=== PATIENT | male | born 1985 | race African-American/Black ===

== ENCOUNTER 2017-10-14 05:25 | Emergency (ER) | payer BC ==
--- NOTE | 2017-10-14 05:30 | PDOC ---
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 Allergies: NKDA <Alicia Casas - Last Filed: 10/14/17 05:48> - General History Source: Patient <Helio Carrasco - Last Filed: 10/14/17 19:43> - General Stated Complaint: COUGH,CHEST PAIN Time Seen by Provider: 10/14/17 05:30 Past History <Alicia Casas - Last Filed: 10/14/17 05:48> <Helio Carrasco - Last Filed: 10/14/17 19:43> - Past Medical History Allergies/Adverse Reactions: Allergies Allergy/AdvReac Type Severity Reaction Status Date / Time No Known Allergies Allergy Verified 10/14/17 05:53 Home Medications: Ambulatory Orders Acetaminophen W/ Codeine #3 [Tylenol # 3] 1 tab PO Q6H #30 tablet MDD 4 Azithromycin [Zithromax -] 250 mg PO UTDICT #6 tab 10/14/17 Meclizine HCl 25 mg PO TID #30 tablet 10/14/17 Review of Systems - Review of Systems Able to Perform ROS?: Yes Comments:: 10/14/17 05:50 CONSTITUTIONAL: Absent: fever, chills, diaphoresis, generalized weakness, malaise, loss of appetite HEENT: Absent: rhinorrhea, nasal congestion, throat pain, throat swelling, difficulty swallowing, mouth swelling, ear pain, eye pain, visual Changes CARDIOVASCULAR: Absent: chest pain, syncope, palpitations, irregular heart rate, lightheadedness , peripheral edema RESPIRATORY: (+) cough x 1 week, Absent: shortness of breath, dyspnea with exertion, orthopnea, wheezing, stridor, hemoptysis GASTROINTESTINAL: Absent: abdominal pain, abdominal distension, nausea, vomiting, diarrhea, constipation, melena, hematochezia GENITOURINARY: Absent: dysuria, frequency, urgency, hesitancy, hematuria, flank pain, genital pain MUSCULOSKELETAL: Absent: myalgia, arthralgia, joint swelling SKIN: Absent: rash, itching, pallor HEMATOLOGIC/IMMUNOLOGIC: Absent: easy bleeding, easy bruising, lymphadenopathy, frequent infections ENDOCRINE: Absent: unexplained weight gain, unexplained weight loss, heat intolerance, cold intolerance NEUROLOGIC: Absent: headache, focal weakness or paresthesias, dizziness, unsteady gait, seizure, mental status changes, bladder or bowel incontinence PSYCHIATRIC: Absent: anxiety, depression, suicidal or homicidal ideation, hallucinations. <Alicia Casas - Last Filed: 10/14/17 05:48> *Physical Exam - Physical Exam Comments: 10/14/17 05:50 GENERAL: Well developed, well nourished. Awake and alert. No acute distress. HEENT: (+) erythema to posterior oropharynx. Normocephalic, atraumatic. PERRLA, EOMI. No conjunctival pallor. Sclera are non-icteric. Moist mucous membranes. NECK: Supple. Full ROM. No JVD. Carotid pulses 2+ and symmetric, without bruits. No thyromegaly. No lymphadenopathy. CARDIOVASCULAR: Regular rate and rhythm. No murmurs, rubs, or gallops. Distal pulses are 2+ and symmetric. PULMONARY: (+) persistent cough, decreased breath sounds bilaterally, No evidence of respiratory distress. No wheezing, rales or rhonchi. ABDOMINAL: Soft. Non-tender. Non-distended. No rebound or guarding. No organomegaly. Normoactive bowel sounds. MUSCULOSKELETAL Normal range of motion at all joints. No bony deformities or tenderness. No CVA tenderness. EXTREMITIES: No cyanosis. No clubbing. No edema. No calf tenderness. SKIN: Warm and dry. Normal capillary refill. No rashes. No jaundice. NEUROLOGICAL: Alert, awake, appropriate. Cranial nerves 2-12 intact. Normoreflexic in the upper and lower extremities. Normal speech. Toes are down-going bilaterally. Gait is normal without ataxia. PSYCHIATRIC: Cooperative. Good eye contact. Appropriate mood and affect. <Alicia Casas - Last Filed: 10/14/17 05:48> Medical Decision Making - Medical Decision Making 10/14/17 19:[address] Carrasco: The scribe's documentation has been prepared under my direction and personally reviewed by me in its entirery. I confirm that the note above accurately reflects all work, treatment, procedures, and medical decision making performed by me. <Helio Carrasco - Last Filed: 10/14/17 19:43> *DC/Admit/Observation/Transfer - Attestations Scribe Attestion: 10/14/17 05:51 Documentation prepared by Alicia Casas, acting as medical practitioners for Helio Carrasco DO <Alicia Casas - Last Filed: 10/14/17 05:48> - Discharge Dispostion Admit: No <Helio Carrasco - Last Filed: 10/14/17 19:43> Diagnosis at time of Disposition: Bronchitis, Cough - Discharge Dispostion Disposition: HOME Condition at time of disposition: Stable - Prescriptions Prescriptions: Acetaminophen W/ Codeine #3 [Tylenol # 3] 1 tab PO Q6H #30 tablet MDD 4 Azithromycin [Zithromax -] 250 mg PO UTDICT #6 tab Meclizine HCl 25 mg PO TID #30 tablet - Patient Instructions Printed Discharge Instructions: DI for Cough -- Adult, DI for Acute Bronchitis
[2017-10-14] MEDS ORDERED: AZITHROMYCIN 250 MG TABLET PO STA (05:49)
[2017-10-14] MEDS ORDERED: AZITHROMYCIN 500 MG TABLET ONE (06:06)
== END 2017-10-14 06:53 | disposition home or self-care (01) ==
LOC: JER 05:25
DX: J40 Bronchitis, not specified as acute or chronic (principal)
CPT/HCPCS: 71046-TC; 87804; 99281-25

== ENCOUNTER 2020-01-25 16:29 | Inpatient (IN) | payer OTHER ==
[2020-01-25] MEDS ORDERED: methylPREDNISolone NA SUCC 125 MG/2 ML VIAL IVPUSH ONE (16:46)
--- NOTE | 2020-01-25 17:01 | PDOC ---
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 Pt now with SOB x 2-3 days.unable to sleep. Increasing SOB; O2sat is low on RA - Physicial Exam PE: 01/25/20 17:04 AGree iw resident exam Lungs clear bilat. Heart RRR Abd soft NT ND + BS - Medical Decision Making 01/25/20 17:04 Pt will be admitted to the ICU Discharge - Discharge Information Problems reviewed: Yes Clinical Impression/Diagnosis: COVID-19 Condition: Critical - Admission Yes - Follow up/Referral - Patient Discharge Instructions - Post Discharge Activity
--- NOTE | 2020-01-25 17:02 | PDOC ---
History of Present Illness - General Chief Complaint: Shortness of Breath Stated Complaint: SHORTNESS OF BREATH Time Seen by Provider: 01/25/20 16:45 - History of Present Illness Initial Comments: 01/25/20 17:02 34yo male with recent COVID positive test presents to the ED with shortness of breath and extreme fatigue. Recently on azithromycin course without relief. Saturating at 98% on room air, placed on 2L nasal cannula upon arrival with symptomatic relief. Patient has been progressively short of breath since diagnosis. 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 Past History - Past Medical History Allergies/Adverse Reactions: Allergies Allergy/AdvReac Type Severity Reaction Status Date / Time No Known Allergies Allergy Verified 01/25/20 16:40 Home Medications: Ambulatory Orders Acetaminophen W/ Codeine #3 [Tylenol # 3] 1 tab PO Q6H #30 tablet MDD 4 10/14/17 Azithromycin [Zithromax -] 250 mg PO UTDICT #6 tab 10/14/17 Meclizine HCl 25 mg PO TID #30 tablet 10/14/17 COPD: No Diabetes: Yes HTN: Yes - Immunization History Immunization Up to Date: Yes - Psycho Social/Smoking Cessation Hx Smoking History: Never smoked Have you smoked in the past 12 months: No Information on smoking cessation initiated: No Hx Alcohol Use: No Drug/Substance Use Hx: No Substance Use Type: None Review of Systems - Review of Systems Able to Perform ROS?: Yes Comments:: 01/25/20 17:11 GEN: + fever, fatigue, chills, malaise, body aches HEENT: No congestion, no sore throat, no ear pain, vision change, or eye pain CV: no palpitations, lightheadedness, syncope, or edema RESP: SOB, cough GI: no nausea, no diarrhea, constipation, or rectal bleed : no dysuria, hematuria, or discharge MSK: + muscle weakness, no joint swelling or pain NEURO: no headache, no vertigo, numbness, tingling, or focal weakness PSYCH: no SI, HI, or behavior change SKIN: no jaundice, rash, lesions, or unexplained bruises ROS otherwise negative except as noted in HPI Is the patient limited Upper Sorbian proficient: No Constitutional: Yes: See HPI HEENTM: No: Symptoms Reported Respiratory: Yes: See HPI Cardiac (ROS): No: Symptoms Reported ABD/GI: No: Symptoms Reported : No: Symptoms Reported Musculoskeletal: No: Symptoms Reported Integumentary: No: Symptoms Reported Neurological: No: Symptoms reported All Other Systems: Reviewed and Negative *Physical Exam - Vital Signs Last Vital Signs Temp Pulse Resp BP Pulse Ox 99 F 92 H 24 H 158/90 100 01/25/20 16:41 01/25/20 16:43 01/25/20 16:41 01/25/20 16:41 01/25/20 16:43 - Physical Exam 01/25/20 17:16 GENERAL: ill-appearing, A/Ox4, mild distress, answers questions appropriately, appears dehydrated, wearingnasal cannula, face mask HEENT: PERRLA, EOMI, dry mucous membranes NECK/BACK: no midline ttp, no spinal stepoff or deformity, no hematoma, full ROM, neck supple CARDIOVASCULAR: Tachycardic rhythm, no MGR, strong peripheral pulses, capillary refill 4 seconds, no edema LUNGS/RESPIRATORY: tachypneic, increased WOB, cough noted, mildly coarse breath sounds bilaterally without focal area of decreased breath sounds GI/ABDOMEN: symmetric [id number], normoactive BS, soft, no ttp, no midline pul satile masses : no CVA tenderness MSK/EXTREMITIES: no muscle atrophy, no acute deformity SKIN: warm and dry, no pallor, no jaundice, no rash, no pathologic-appearing bruising, no skin breakdown, no cuts, no lesions NEUROLOGICAL: GCS 15, CN II-XII grossly intact, 5/5 strength proximally and dis tally, no facial droop ED Treatment Course - LABORATORY CBC & Chemistry Diagram: 01/25/20 16:29 01/25/20 16:29 - Medications Given in the ED: ED Medications Discontinued Medications Generic Name Dose Route Start Last Admin Trade Name Freq PRN Reason Stop Dose Admin Methylprednisolone Sodium Succinate 125 mg 01/25/20 16:46 01/25/20 16:49 Solu-Medrol - IVPUSH 01/25/20 16:47 125 mg ONCE ONE Administration Medical Decision Making - Medical Decision Making 01/25/20 17:27 Patient presents with fever, SOB, fatigue COVID-19+ in the setting of COVID-19 pandemic. DDX IBNLT: COVID-19 with c/f sequelae (ARDS, myocarditis). Superimposed bacterial PNA considered as well. Restrictive lung disease from body habitus possible contributing factor. Less likely influenza, bronchitis, other viral URI, laryngitis, tracheitis, etc. W/U ordered: Labs as noted below, COVID-19 swab, EKG, CXR TX ordered: Solumedrol 125 given. BiPAP started. No acute pulmonary disease seen on xray. Patient admitted to ICU immediately under the care of Dr. Cavazos. Discharge - Discharge Information Problems reviewed: Yes Clinical Impression/Diagnosis: COVID-19 Condition: Stable - Admission Yes - Follow up/Referral - Patient Discharge Instructions - Post Discharge Activity
[2020-01-25 17:19] LABS: BASO % 0.7 % (0-2.0); HEMATOCRIT 44.1 % (35.4-49); HEMOGLOBIN 13.9 GM/dL (11.7-16.9); LYMPH % 44.4 % (8-40); MCH 23.4 pg (25.7-33.7); MCHC 31.4 g/dl (32.0-35.9); MEAN CELL VOLUME 74.6 fl (80-96); MEAN PLT VOLUME 9.1 fl (7.5-11.1); MONO % 15.9 % (3.8-10.2); PLATELET COUNT 277 K/MM3 (134-434); RBC 5.91 M/mm3 (4.00-5.60); RDW 16.4 % (11.9-15.9); WHITE BLOOD COUNT 7.7 K/mm3 (4.0-10.0)
[2020-01-25 17:28] LABS: PROTHROMBIN TIME (PATIENT) 11.8 SEC (9.7-13.0)
[2020-01-25 17:30] LABS: ACTIVATED PTT 32.6 SECONDS (25.2-36.5)
[2020-01-25 17:35] LABS: VENOUS PC02 54.9 mmHg (38-52); VENOUS PH 7.36 (7.31-7.41); VENOUS PO2 < 49 mmHg (28-48)
[2020-01-25 17:36] LABS: VENOUS BASE EXCESS 4.3 mmol/L (-2-2)
--- NOTE | 2020-01-25 18:13 | CONSULT ---
Consultation: REQUESTING PROVIDER: ED CONSULT REQUEST: We have been asked to medically evaluate this patient for dyspnea HISTORY OF PRESENT ILLNESS: Pt is a 34 y/o male with HTN (not on meds) who presents with 3-4 days of increasing dyspnea and diarrhea. Two days ago he began having chest pain with coughing. 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 Tmax 103 this week. He has taken Tylenol with relief. No tobacco or alcohol use. NKDA REVIEW OF SYSTEMS: see HPI PHYSICAL EXAMINATION Vital Signs - 24 hr 01/25/20 01/25/20 01/25/20 16:41 16:43 16:55 Temperature 99 F Pulse Rate 80 92 H Pulse Rate [ 88 Apical] Respiratory 24 H 20 Rate Blood Pressure 158/90 Blood Pressure 136/84 [Left Arm] O2 Sat by Pulse 100 100 100 Oximetry (%) GENERAL: Awake, alert, and fully oriented, in no acute distress. HEAD: Normal with no signs of trauma. EYES: Pupils equal, round and reactive to light, extraocular movements intact, sclera anicteric, conjunctiva clear. No lid lag. EARS, NOSE, THROAT: Ears normal, nares patent, moist mucous membranes. NECK: Normal range of motion, supple without lymphadenopathy, JVD, or masses. LUNGS: No tachypnea. No accessory muscle use. MUSCULOSKELETAL: Normal range of motion at all joints. NEUROLOGICAL: Cranial nerves II-XII grossly intact. Normal speech. PSYCHIATRIC: Cooperative. Good eye contact. Appropriate mood and affect. SKIN: Warm, dry, normal turgor, no rashes or lesions noted. Laboratory Results - last 24 hr 01/25/20 01/25/20 01/25/20 16:29 16:29 16:29 WBC 7.7 RBC 5.91 H Hgb 13.9 Hct 44.1 MCV 74.6 L MCH 23.4 L MCHC 31.4 L RDW 16.4 H Plt Count 277 MPV 9.1 Absolute Neuts (auto) 2.7 Neutrophils % 35.0 L Lymphocytes % 44.4 H Monocytes % 15.9 H Eosinophils % 4.0 Basophils % 0.7 Nucleated RBC % 0 PT with INR 11.80 INR 1.00 PTT (Actin FS) 32.6 VBG pH 7.36 POC VBG pCO2 54.9 H POC VBG pO2 < 49 H VBG HCO3 30.6 H VBG O2 Sat (Cortes) 35.5 L VBG Base Excess 4.3 H Active Medications Generic Name Dose Route Start Last Admin Trade Name Kary PRN Reason Stop Dose Admin Chlorhexidine Gluconate 1 applic 01/25/20 22:00 Hibiclens For Decolonization - TP HS SARAH Heparin Sodium (Porcine) 7,500 unit 01/25/20 22:00 Heparin - SQ TID SARAH Mupirocin 1 applic 01/25/20 22:00 Bactroban Ointment (For Decolonization) - NS 01/30/20 21:59 BID SARAH ASSESSMENT/PLAN: Pt is a 34 y/o male with HTN (not on meds) who presents with 3-4 days of increasing dyspnea and diarrhea. Two days ago he began having chest pain with coughing. 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 neuro: -alert cardio: -monitor BP pulm: -consent signed for convalescent plasma -type and screen stat -CXR no infiltrate noted -NC -BiPAP at night as needed DVT Ppx heparin 7500 TID FEN PO fluids monitor labs regular diet dispo: ICU monitoring waiting for plasma FULL CODE Visit type - Emergency Visit Emergency Visit: Yes ED Registration Date: 01/25/20 Care time: The patient presented to the Emergency Department on the above date and was hospitalized for further evaluation of their emergent condition. - New Patient This patient is new to me today: Yes Date on this admission: 01/26/20 - Critical Care Critical Care patient: Yes Total Critical Care Time (in minutes): 38 Critical Care Statement: The care of this patient involved high complexity decision making to prevent further life threatening deterioration of the p atient's condition and/or to evaluate & treat vital organ system(s) failure or risk of failure. ATTENDING PHYSICIAN STATEMENT I saw and evaluated the patient. I reviewed the resident's note and discussed the case with the resident. I agree with the resident's findings and plan as documented. SUBJECTIVE: OBJECTIVE: ASSESSMENT AND PLAN:
[2020-01-25 18:42] LABS: BLOOD UREA NITROGEN 6.3 mg/dL (7-18); CREATININE 1.1 mg/dL (0.55-1.3); POTASSIUM 3.4 mmol/L (3.5-5.1)
[2020-01-25 18:43] LABS: ALBUMIN 3.3 g/dl (3.4-5.0); BILIRUBIN,DIRECT 0.1 mg/dL (0.0-0.2); BILIRUBIN,TOTAL 0.4 mg/dL (0.2-1); CALCIUM 8.4 mg/dL (8.5-10.1); TOT PROT 7.4 g/dl (6.4-8.2)
[2020-01-25] MEDS: MUPIROCIN 2% TOPICAL OINTMENT FOR DECOLONIZATION NS SCH (22:35)
[2020-01-25] MEDS: CHLORHEXIDINE GLUCONATE 4% CLEANSER FOR DECOLONIZATION TP SCH (22:36)
[2020-01-25] MEDS: HEPARIN NA (PORCINE) 5,000 UNITS/ML 1ML VIAL SQ SCH (22:36)
--- NOTE | 2020-01-25 22:48 | PN ---
Teaching Attending Note Name of Resident: Bre Ramey ATTENDING PHYSICIAN STATEMENT I saw and evaluated the patient. I reviewed the resident's note and discussed the case with the resident. I agree with the resident's findings and plan as documented. SUBJECTIVE: 34 M, HTN and likely OSAS. 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 Tested (+) 2 days ago. Progressive SOB., fever 103, and GI symptoms. Apparently was hypoxic to the 80's and was told he needed intubation. AMA. Presented due to worsening SOB and pleuritic type CP. CXR: possible increased central markings. PHYSICAL EXAMINATION Vital Signs - 24 hr 01/25/20 01/25/20 01/25/20 16:41 16:43 16:55 Temperature 99 F Pulse Rate 80 92 H Pulse Rate [ 88 Apical] Respiratory 24 H 20 Rate Blood Pressure 158/90 Blood Pressure 136/84 [Left Arm] O2 Sat by Pulse 100 100 100 Oximetry (%) GENERAL: Awake, alert, and fully oriented, in no acute distress. HEAD: Normal with no signs of trauma. EYES: Pupils equal, round and reactive to light, extraocular movements intact, sclera anicteric, conjunctiva clear. No lid lag. EARS, NOSE, THROAT: Ears normal, nares patent, moist mucous membranes. NECK: Normal range of motion, supple without lymphadenopathy, JVD, or masses. LUNGS: No tachypnea. No accessory muscle use. MUSCULOSKELETAL: Normal range of motion at all joints. NEUROLOGICAL: Non-focal PSYCHIATRIC: Cooperative. Good eye contact. Appropriate mood and affect. SKIN: Warm, dry, normal turgor, no rashes or lesions noted. Laboratory Results - last 24 hr 01/25/20 01/25/20 01/25/20 16:29 16:29 16:29 WBC 7.7 RBC 5.91 H Hgb 13.9 Hct 44.1 MCV 74.6 L MCH 23.4 L MCHC 31.4 L RDW 16.4 H Plt Count 277 MPV 9.1 Absolute Neuts (auto) 2.7 Neutrophils % 35.0 L Lymphocytes % 44.4 H Monocytes % 15.9 H Eosinophils % 4.0 Basophils % 0.7 Nucleated RBC % 0 PT with INR 11.80 INR 1.00 PTT (Actin FS) 32.6 VBG pH 7.36 POC VBG pCO2 54.9 H POC VBG pO2 < 49 H VBG HCO3 30.6 H VBG O2 Sat (Cortes) 35.5 L VBG Base Excess 4.3 H Active Medications Generic Name Dose Route Start Last Admin Trade Name Freq PRN Reason Stop Dose Admin Chlorhexidine Gluconate 1 applic 01/25/20 22:00 Hibiclens For Decolonization - TP HS SARAH Heparin Sodium (Porcine) 7,500 unit 01/25/20 22:00 Heparin - SQ TID SARAH Mupirocin 1 applic 01/25/20 22:00 Bactroban Ointment (For Decolonization) - NS 01/30/20 21:59 BID [facility] ASSESSMENT/PLAN: Acute Respiratory Distress due to COVID19 Pneumonitis HTN Likely OSAS Supplemental O2 as needed NIPPV / AVAPS at bedside VTE prophylaxis IV Steroids Will order Convalescent Plasma Monitor off ABX for now Dr Cavazos
[2020-01-25 23:33] LABS: URINE APPEARANCE CLEAR; URINE BILIRUBIN NEGATIVE (NEGATIVE); URINE COLOR YELLOW; URINE GLUCOSE (UA) 3+ (NEGATIVE); URINE KETONE NEGATIVE (NEGATIVE); URINE LEUK ESTERASE NEGATIVE (NEGATIVE); URINE NITRITE NEGATIVE (NEGATIVE); URINE PROTEIN NEGATIVE (NEGATIVE)
[2020-01-26] MEDS ORDERED: INSULIN REGULAR HUMAN 100 UNITS/ML *VIAL IVPUSH ONE (00:31)
[2020-01-26] MEDS: HEPARIN NA (PORCINE) 5,000 UNITS/ML 1ML VIAL SQ SCH ×3 (06:30→23:14)
[2020-01-26 07:15] LABS: BASO % 0.1 % (0-2.0); HEMOGLOBIN 12.2 GM/dL (11.7-16.9); LYMPH % 21.9 % (8-40); MCH 23.3 pg (25.7-33.7); MCHC 31.3 g/dl (32.0-35.9); MEAN CELL VOLUME 74.5 fl (80-96); MEAN PLT VOLUME 9.1 fl (7.5-11.1); MONO % 7.6 % (3.8-10.2); NEUT % 70.4 % (42.8-82.8); PLATELET COUNT 270 K/MM3 (134-434); RBC 5.24 M/mm3 (4.00-5.60); RDW 16.3 % (11.9-15.9); WHITE BLOOD COUNT 4.9 K/mm3 (4.0-10.0)
[2020-01-26 07:28] LABS: ALBUMIN 2.9 g/dl (3.4-5.0); BILIRUBIN,TOTAL 0.3 mg/dL (0.2-1); BLOOD UREA NITROGEN 10.2 mg/dL (7-18); CALCIUM 8.7 mg/dL (8.5-10.1); MAGNESIUM 2.3 mg/dL (1.8-2.4); PHOSPHOROUS 3.6 mg/dL (2.5-4.9); POTASSIUM 3.8 mmol/L (3.5-5.1); TOT PROT 6.8 g/dl (6.4-8.2)
[2020-01-26] MEDS ORDERED: methylPREDNISolone NA SUCC 125 MG/2 ML VIAL IVPUSH SCH (08:45)
[2020-01-26] MEDS: MUPIROCIN 2% TOPICAL OINTMENT FOR DECOLONIZATION NS SCH ×2 (10:05→23:14)
[2020-01-26] MEDS ORDERED: INSULIN SLIDING SCALE (NOVOLOG) 1 VIAL SQ SCH (11:00)
--- NOTE | 2020-01-26 11:28 | PN ---
Physical Exam: SUBJECTIVE: Pt reports weakness but improvement in cough and GI symptoms. He reports loss of taste and smell this morning. OBJECTIVE: Vital Signs Period Temp Pulse Resp BP Sys/Miner Pulse Ox Last 24 Hr 97.7 F-99 F 80-99 15-24 122-158/77-109 95-100 GENERAL: The patient is awake, alert, and fully oriented, in no acute distress. 2L NC HEAD: Normal with no signs of trauma. EYES: PERRL, extraocular movements intact, conjunctiva clear. ENT: Ears normal, nares patent, moist mucous membranes. NECK: Trachea midline, full range of motion NEUROLOGICAL: Cranial nerves II through XII grossly intact. PSYCH: Normal mood, normal affect. SKIN: Warm, dry, no rashes or lesions noted Laboratory Results - last 24 hr 01/25/20 01/25/20 01/25/20 16:29 16:29 16:29 WBC 7.7 RBC 5.91 H Hgb 13.9 Hct 44.1 MCV 74.6 L MCH 23.4 L MCHC 31.4 L RDW 16.4 H Plt Count 277 MPV 9.1 Absolute Neuts (auto) 2.7 Neutrophils % 35.0 L Lymphocytes % 44.4 H Monocytes % 15.9 H Eosinophils % 4.0 Basophils % 0.7 Nucleated RBC % 0 PT with INR 11.80 INR 1.00 PTT (Actin FS) 32.6 D-Dimer VBG pH POC VBG pCO2 POC VBG pO2 VBG HCO3 VBG O2 Sat ([place]) VBG Base Excess Sodium 141 Potassium 3.4 L Chloride 104 Carbon Dioxide 28 Anion Gap 12 BUN 6.3 L Creatinine 1.1 Est GFR (CKD-EPI)AfAm 100.27 Est GFR (CKD-EPI)NonAf 86.51 POC Glucometer Random Glucose 192 H Hemoglobin A1c % Lactic Acid Calcium 8.4 L Phosphorus Magnesium Ferritin 377 Total Bilirubin 0.4 Direct Bilirubin 0.1 AST 41 H ALT 59 Alkaline Phosphatase 90 LD Total 326 H Creatine Kinase 485 H Creatine Kinase Index 0.6 CK-MB (CK-2) 3.24 Troponin I 0.02 C-Reactive Protein 11.8 H Total Protein 7.4 Albumin 3.3 L Urine Color Urine Appearance Urine pH Ur Specific [place] Urine Protein Urine Glucose (UA) Urine Ketones Urine Blood Urine Nitrite Urine Bilirubin Urine Urobilinogen Ur Leukocyte Esterase Blood Type Antibody Screen 01/25/20 01/25/20 01/25/20 16:29 16:29 16:29 WBC RBC Hgb Hct MCV MCH MCHC RDW Plt Count MPV Absolute Neuts (auto) Neutrophils % Lymphocytes % Monocytes % Eosinophils % Basophils % Nucleated RBC % PT with INR INR PTT (Actin FS) D-Dimer 1322 H VBG pH 7.36 POC VBG pCO2 54.9 H POC VBG pO2 < 49 H VBG HCO3 30.6 H VBG O2 Sat ([place]) 35.5 L VBG Base Excess 4.3 H Sodium Potassium Chloride Carbon Dioxide Anion Gap BUN Creatinine Est GFR (CKD-EPI)AfAm Est GFR (CKD-EPI)NonAf POC Glucometer Random Glucose Hemoglobin A1c % Lactic Acid 1.2 Calcium Phosphorus Magnesium Ferritin Total Bilirubin Direct Bilirubin AST ALT Alkaline Phosphatase LD Total Creatine Kinase Creatine Kinase Index CK-MB (CK-2) Troponin I C-Reactive Protein Total Protein Albumin Urine Color Urine Appearance Urine pH Ur Specific [place] Urine Protein Urine Glucose (UA) Urine Ketones Urine Blood Urine Nitrite Urine Bilirubin Urine Urobilinogen Ur Leukocyte Esterase Blood Type Antibody Screen 01/25/20 01/25/20 01/25/20 17:30 18:20 18:30 WBC RBC Hgb Hct MCV MCH MCHC RDW Plt Count MPV Absolute Neuts (auto) Neutrophils % Lymphocytes % Monocytes % Eosinophils % Basophils % Nucleated RBC % PT with INR INR PTT (Actin FS) D-Dimer VBG pH POC VBG pCO2 POC VBG pO2 VBG HCO3 VBG O2 Sat ([place]) VBG Base Excess Sodium Potassium Chloride Carbon Dioxide Anion Gap BUN Creatinine Est GFR (CKD-EPI)AfAm Est GFR (CKD-EPI)NonAf POC Glucometer Random Glucose Hemoglobin A1c % Lactic Acid Calcium Phosphorus Magnesium Ferritin Total Bilirubin Direct Bilirubin AST ALT Alkaline Phosphatase LD Total Creatine Kinase Creatine Kinase Index CK-MB (CK-2) Troponin I C-Reactive Protein Total Protein Albumin Urine Color Urine Appearance Urine pH Ur Specific [place] Urine Protein Urine Glucose (UA) Urine Ketones Urine Blood Urine Nitrite Urine Bilirubin Urine Urobilinogen Ur Leukocyte Esterase Blood Type O NEGATIVE O NEGATIVE Cancelled Antibody Screen Negative Cancelled 01/25/20 01/25/20 01/26/20 22:00 23:40 06:02 WBC 4.9 RBC 5.24 Hgb 12.2 Hct 39.0 MCV 74.5 L MCH 23.3 L MCHC 31.3 L RDW 16.3 H Plt Count 270 MPV 9.1 Absolute Neuts (auto) 3.5 Neutrophils % 70.4 D Lymphocytes % 21.9 D Monocytes % 7.6 Eosinophils % 0.0 D Basophils % 0.1 Nucleated RBC % 0 PT with INR INR PTT (Actin FS) D-Dimer VBG pH POC VBG pCO2 POC VBG pO2 VBG HCO3 VBG O2 Sat ([place]) VBG Base Excess Sodium Potassium Chloride Carbon Dioxide Anion Gap BUN Creatinine Est GFR (CKD-EPI)AfAm Est GFR (CKD-EPI)NonAf POC Glucometer 332 Random Glucose Hemoglobin A1c % Lactic Acid Calcium Phosphorus Magnesium Ferritin Total Bilirubin Direct Bilirubin AST ALT Alkaline Phosphatase LD Total Creatine Kinase Creatine Kinase Index CK-MB (CK-2) Troponin I C-Reactive Protein Total Protein Albumin Urine Color Yellow Urine Appearance Clear Urine pH 6.0 Ur Specific [place] 1.026 Urine Protein Negative Urine Glucose (UA) 3+ H Urine Ketones Negative Urine Blood Negative Urine Nitrite Negative Urine Bilirubin Negative Urine Urobilinogen 1.0 Ur Leukocyte Esterase Negative Blood Type Antibody Screen 01/26/20 01/26/20 01/26/20 06:02 06:02 06:18 WBC RBC Hgb Hct MCV MCH MCHC RDW Plt Count MPV Absolute Neuts (auto) Neutrophils % Lymphocytes % Monocytes % Eosinophils % Basophils % Nucleated RBC % PT with INR INR PTT (Actin FS) D-Dimer VBG pH POC VBG pCO2 POC VBG pO2 VBG HCO3 VBG O2 Sat ([place]) VBG Base Excess Sodium 139 Potassium 3.8 Chloride 103 Carbon Dioxide 28 Anion Gap 7 L BUN 10.2 Creatinine 1.0 Est GFR (CKD-EPI)AfAm 112.51 Est GFR (CKD-EPI)NonAf 97.08 POC Glucometer 289 Random Glucose 330 H Hemoglobin A1c % Lactic Acid Calcium 8.7 Phosphorus 3.6 Magnesium 2.3 Ferritin 360.1 Total Bilirubin 0.3 Direct Bilirubin AST 30 ALT 57 Alkaline Phosphatase 103 LD Total 265 H Creatine Kinase Creatine Kinase Index CK-MB (CK-2) Troponin I C-Reactive Protein 7.1 H Total Protein 6.8 Albumin 2.9 L Urine Color Urine Appearance Urine pH Ur Specific [place] Urine Protein Urine Glucose (UA) Urine Ketones Urine Blood Urine Nitrite Urine Bilirubin Urine Urobilinogen Ur Leukocyte Esterase Blood Type Antibody Screen 01/26/20 06:40 WBC RBC Hgb Hct MCV MCH MCHC RDW Plt Count MPV Absolute Neuts (auto) Neutrophils % Lymphocytes % Monocytes % Eosinophils % Basophils % Nucleated RBC % PT with INR INR PTT (Actin FS) D-Dimer VBG pH POC VBG pCO2 POC VBG pO2 VBG HCO3 VBG O2 Sat ([place]) VBG Base Excess Sodium Potassium Chloride Carbon Dioxide Anion Gap BUN Creatinine Est GFR (CKD-EPI)AfAm Est GFR (CKD-EPI)NonAf POC Glucometer Random Glucose Hemoglobin A1c % 10.5 H Lactic Acid Calcium Phosphorus Magnesium Ferritin Total Bilirubin Direct Bilirubin AST ALT Alkaline Phosphatase LD Total Creatine Kinase Creatine Kinase Index CK-MB (CK-2) Troponin I C-Reactive Protein Total Protein Albumin Urine Color Urine Appearance Urine pH Ur Specific [place] Urine Protein Urine Glucose (UA) Urine Ketones Urine Blood Urine Nitrite Urine Bilirubin Urine Urobilinogen Ur Leukocyte Esterase Blood Type Antibody Screen Active Medications Generic Name Dose Route Start Last Admin Trade Name Freq PRN Reason Stop Dose Admin Chlorhexidine Gluconate 1 applic 01/25/20 22:00 01/25/20 22:36 Hibiclens For Decolonization - TP 1 applic HS SARAH Administration Heparin Sodium (Porcine) 7,500 unit 01/25/20 22:00 01/26/20 06:30 Heparin - SQ 7,500 unit TID SARAH Administration Insulin Aspart 1 vial 01/26/20 11:00 Novolog Vial Sliding Scale - SQ ACHS [facility] Protocol Methylprednisolone Sodium Succinate 70 mg 01/27/20 10:00 Solu-Medrol - IVPUSH 02/01/20 09:59 DAILY SARAH Mupirocin 1 applic 01/25/20 22:00 01/26/20 10:05 Bactroban Ointment (For Decolonization) - NS 01/30/20 21:59 1 applic BID SARAH Administration ASSESSMENT/PLAN: Pt is a 34 y/o male with HTN (not on meds) who presents with 3-4 days of increasing dyspnea and diarrhea. Two days ago he began having chest pain with coughing. 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 neuro: -alert cardio: -monitor BP pulm: -convalescent plasma administered -CXR no infiltrate noted -NC -BiPAP at night as needed -pt requested incentive spirometer endo: -A1C 10.5, discussed with pt -SSI -BGMs ID: -solu-medrol 70mg day 1 DVT Ppx heparin 7500 TID FEN PO fluids monitor labs regular diet dispo: ICU monitoring FULL CODE Visit type - Emergency Visit Emergency Visit: Yes ED Registration Date: 01/25/20 Care time: The patient presented to the Emergency Department on the above date and was hospitalized for further evaluation of their emergent condition. - New Patient This patient is new to me today: No - Critical Care Critical Care patient: Yes Total Critical Care Time (in minutes): 35 Critical Care Statement: The care of this patient involved high complexity decision making to prevent further life threatening deterioration of the patient's condition and/or to evaluate & treat vital organ system(s) failure or risk of failure. ATTENDING PHYSICIAN STATEMENT I saw and evaluated the patient. I reviewed the resident's note and discussed the case with the resident. I agree with the resident's findings and plan as documented. SUBJECTIVE: OBJECTIVE: ASSESSMENT AND PLAN:
[2020-01-26] MEDS: INSULIN SLIDING SCALE (NOVOLOG) 1 VIAL SQ SCH ×3 (11:35→23:13)
--- NOTE | 2020-01-26 12:38 | PN ---
Teaching Attending Note Name of Resident: Bre Ramey ATTENDING PHYSICIAN STATEMENT I saw and evaluated the patient. I reviewed the resident's note and discussed the case with the resident. I agree with the resident's findings and plan as documented. SUBJECTIVE: Pt seen and examined in the ICU. States breathing is improving. Received co nvalescent plasma this AM. No fevers. Saturating well on nasal cannula. OBJECTIVE: Vital Signs Period Temp Pulse Resp BP Sys/Miner Pulse Ox Last 24 Hr 97.7 F-99 F 77-99 15-24 122-158/77-109 95-100 Intake & Output 01/23/20 01/24/20 01/25/20 01/26/20 23:59 23:59 23:59 23:59 Output Total 400 Balance -400 Weight 140.614 kg Gen: NAD at rest Heart: RRR Lung: decreased breath sounds at the bases Abd: soft, nontender Ext: no edema CBC, BMP 01/26/20 06:02 01/26/20 06:02 Hepatic Panel Total Bilirubin 0.3 mg/dL (0.2-1) 01/26/20 06:02 Direct Bilirubin 0.1 mg/dL (0.0-0.2) 01/25/20 16:29 AST 30 U/L (15-37) 01/26/20 06:02 ALT 57 U/L (13-61) 01/26/20 06:02 Alkaline Phosphatase 103 U/L (45-117) 01/26/20 06:02 Albumin 2.9 g/dl (3.4-5.0) L 01/26/20 06:02 Laboratory Tests 01/26/20 01/26/20 06:02 06:02 Ferritin 360.1 LD Total 265 H C-Reactive Protein 7.1 H Active Medications Chlorhexidine Gluconate (Hibiclens For Decolonization -) 1 applic TP HS SARAH Last Admin: 01/25/20 22:36 Dose: 1 applic Documented by: Heparin Sodium (Porcine) (Heparin -) 7,500 unit SQ TID SARAH Last Admin: 01/26/20 06:30 Dose: 7,500 unit Documented by: Insulin Aspart (Novolog Vial Sliding Scale -) 1 vial SQ ACHS [facility]; Protocol Last Admin: 01/26/20 11:35 Dose: 6 units Documented by: Methylprednisolone Sodium Succinate (Solu-Medrol -) 70 mg IVPUSH DAILY [facility] Stop: 02/01/20 09:59 Mupirocin (Bactroban Ointment (For Decolonization) -) 1 applic NS BID [facility] Stop: 01/30/20 21:59 Last Admin: 01/26/20 10:05 Dose: 1 applic Documented by: ASSESSMENT AND PLAN: COVID Pneumonia Hypoxia HTN DM - received convalescent plasma - empiric medrol x 5 days - trend ferritin, LDH, CRP - O2 to keep SpO2 >90% - DVT prophylaxis
[2020-01-26] MEDS: ACETAMINOPHEN 325 MG TABLET (FP) PO PRN (23:13)
[2020-01-26] MEDS: CHLORHEXIDINE GLUCONATE 4% CLEANSER FOR DECOLONIZATION TP SCH (23:14)
[2020-01-27] MEDS ORDERED: ACETAMINOPHEN 1000 MG/100 ML VIAL (NON FORMULARY) IVPB ONE (02:35)
[2020-01-27] MEDS: HEPARIN NA (PORCINE) 5,000 UNITS/ML 1ML VIAL SQ SCH ×2 (07:10→14:29)
[2020-01-27] MEDS: INSULIN SLIDING SCALE (NOVOLOG) 1 VIAL SQ SCH ×3 (07:10→18:27)
[2020-01-27 07:14] LABS: BASO % 0.6 % (0-2.0); HEMATOCRIT 39.2 % (35.4-49); HEMOGLOBIN 12.4 GM/dL (11.7-16.9); MCH 23.4 pg (25.7-33.7); MCHC 31.6 g/dl (32.0-35.9); MEAN CELL VOLUME 74.2 fl (80-96); MEAN PLT VOLUME 9.1 fl (7.5-11.1); MONO % 6.2 % (3.8-10.2); NEUT % 59.2 % (42.8-82.8); PLATELET COUNT 291 K/MM3 (134-434); RBC 5.28 M/mm3 (4.00-5.60); RDW 16.1 % (11.9-15.9); WHITE BLOOD COUNT 10.9 K/mm3 (4.0-10.0)
[2020-01-27 07:30] LABS: BILIRUBIN,TOTAL 0.4 mg/dL (0.2-1); BLOOD UREA NITROGEN 13.7 mg/dL (7-18); CALCIUM 8.4 mg/dL (8.5-10.1); CREATININE 1.1 mg/dL (0.55-1.3); MAGNESIUM 1.9 mg/dL (1.8-2.4); PHOSPHOROUS 4.1 mg/dL (2.5-4.9); POTASSIUM 3.8 mmol/L (3.5-5.1); TOT PROT 6.9 g/dl (6.4-8.2)
--- NOTE | 2020-01-27 08:23 | PN ---
Physical Exam: SUBJECTIVE: c/o chest tightness overnight, EKG no changes, trop negative OBJECTIVE: Vital Signs Period Temp Pulse Resp BP Sys/Miner Pulse Ox Last 24 Hr 98 F-99.8 F 77-106 18-25 126-160/69-109 95-100 exam per financial foundations representative Laboratory Results - last 24 hr 01/26/20 01/26/20 01/26/20 06:40 11:32 18:08 WBC RBC Hgb Hct MCV MCH MCHC RDW Plt Count MPV Absolute Neuts (auto) Neutrophils % Lymphocytes % Monocytes % Eosinophils % Basophils % Nucleated RBC % Sodium Potassium Chloride Carbon Dioxide Anion Gap BUN Creatinine Est GFR (CKD-EPI)AfAm Est GFR (CKD-EPI)NonAf POC Glucometer 292 329 Random Glucose Hemoglobin A1c % 10.5 H Calcium Phosphorus Magnesium Ferritin Total Bilirubin AST ALT Alkaline Phosphatase LD Total Creatine Kinase Troponin I C-Reactive Protein Total Protein Albumin 01/26/20 01/27/20 01/27/20 22:10 05:50 05:50 WBC 10.9 H RBC 5.28 Hgb 12.4 Hct 39.2 MCV 74.2 L MCH 23.4 L MCHC 31.6 L RDW 16.1 H Plt Count 291 MPV 9.1 Absolute Neuts (auto) 6.4 Neutrophils % 59.2 Lymphocytes % 34.0 D Monocytes % 6.2 Eosinophils % 0.0 Basophils % 0.6 D Nucleated RBC % 0 Sodium 139 Potassium 3.8 Chloride 102 Carbon Dioxide 28 Anion Gap 10 BUN 13.7 Creatinine 1.1 Est GFR (CKD-EPI)AfAm 100.27 Est GFR (CKD-EPI)NonAf 86.51 POC Glucometer 217 Random Glucose 156 H Hemoglobin A1c % Calcium 8.4 L Phosphorus 4.1 Magnesium 1.9 Ferritin 311.9 Total Bilirubin 0.4 AST 25 ALT 52 Alkaline Phosphatase 96 LD Total 282 H Creatine Kinase Troponin I C-Reactive Protein 5.7 H Total Protein 6.9 Albumin 3.0 L 01/27/20 01/27/20 05:50 06:17 WBC RBC Hgb Hct MCV MCH MCHC RDW Plt Count MPV Absolute Neuts (auto) Neutrophils % Lymphocytes % Monocytes % Eosinophils % Basophils % Nucleated RBC % Sodium Potassium Chloride Carbon Dioxide Anion Gap BUN Creatinine Est GFR (CKD-EPI)AfAm Est GFR (CKD-EPI)NonAf POC Glucometer 180 Random Glucose Hemoglobin A1c % Calcium Phosphorus Magnesium Ferritin Total Bilirubin AST ALT Alkaline Phosphatase LD Total Creatine Kinase 215 Troponin I < 0.02 C-Reactive Protein Total Protein Albumin Active Medications Generic Name Dose Route Start Last Admin Trade Name Kary PRN Reason Stop Dose Admin Acetaminophen 650 mg 01/26/20 23:02 01/26/20 23:13 Tylenol - PO 650 mg Q6H PRN Administration FEVER Chlorhexidine Gluconate 1 applic 01/25/20 22:00 01/26/20 23:14 Hibiclens For Decolonization - TP 1 applic HS SARAH Administration Heparin Sodium (Porcine) 7,500 unit 01/25/20 22:00 01/27/20 07:10 Heparin - SQ 7,500 unit TID SARAH Administration Insulin Aspart 1 vial 01/26/20 11:00 01/27/20 07:10 Novolog Vial Sliding Scale - SQ 2 units ACHS SARAH Administration Protocol Methylprednisolone Sodium Succinate 70 mg 01/27/20 10:00 Solu-Medrol - IVPUSH 02/01/20 09:59 DAILY SARAH Mupirocin 1 applic 01/25/20 22:00 01/26/20 23:14 Bactroban Ointment (For Decolonization) - NS 01/30/20 21:59 1 applic BID SARAH Administration ASSESSMENT/PLAN: Pt is a 34 y/o male with HTN (not on meds) and newly diagnosed DM on admission, who presents with 3-4 days of increasing dyspnea and diarrhea. Two days ago he began having chest pain with coughing. 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 neuro: -somnolent this morning but improved following starting BiPAP cardio: -monitor BP pulm: -COVID -CXR possible infiltrate forming left lung, especially base -ABG this morning pCO2 50 -BiPAP -incentive spirometer -Legionella and step pneumo negative endo: -A1C 10.5 -SSI -BGMs -f/u outpatient ID: -solu-medrol 70mg day 3 -s/p convalescent plasma 01/25 -ID consulted DVT Ppx heparin 7500 TID FEN PO fluids monitor labs regular diet dispo: ICU monitoring FULL CODE Visit type - Emergency Visit Emergency Visit: Yes ED Registration Date: 01/25/20 Care time: The patient presented to the Emergency Department on the above date and was hospitalized for further evaluation of their emergent condition. - New Patient This patient is new to me today: No - Critical Care Critical Care patient: Yes Total Critical Care Time (in minutes): 35 Critical Care Statement: The care of this patient involved high complexity decision making to prevent further life threatening deterioration of the patient's condition and/or to evaluate & treat vital organ system(s) failure or risk of failure. ATTENDING PHYSICIAN STATEMENT I saw and evaluated the patient. I reviewed the resident's note and discussed the case with the resident. I agree with the resident's findings and plan as documented. SUBJECTIVE: OBJECTIVE: ASSESSMENT AND PLAN:
[2020-01-27] MEDS: SODIUM CHLORIDE 1,000 ML IV SCH (10:00)
[2020-01-27 10:22] LABS: ARTERIAL BLD GAS O2 SATURATION 93.3 % (95-98); ARTERIAL BLOOD GAS BASE EXCESS 6.3 mmol/L (-2-2); ARTERIAL BLOOD GAS PCO2 50.4 mmHg (35-45); ARTERIAL BLOOD GAS PO2 71.2 mmHg (80-100); ARTERIAL BLOOD GAS pH 7.41 (7.35-7.45)
--- NOTE | 2020-01-27 10:29 | PN ---
Progress Note (short form) - Note Progress Note: ID consult dictated fever recent diagnosis covid 19 positive was on zithromax prior to admission obesity- suspected osas HTN jypoxemic respiratory failure s/p convalescent plasma improving inflammatory markers send urinary antigens continue davissyn will follow over 35 minutes spent in the care of this ICU patient d/w logistics operations manager at length Problem List - Problems (1) Acute hypoxemic respiratory failure Code(s): J96.01 - ACUTE RESPIRATORY FAILURE WITH HYPOXIA (2) COVID-19 Code(s): U07.1 - COVID POSITIVE (3) HTN (hypertension) Code(s): I10 - ESSENTIAL (PRIMARY) HYPERTENSION (4) Obesity Code(s): E66.9 - OBESITY, UNSPECIFIED (5) REYNALDO (obstructive sleep apnea) Code(s): G47.33 - OBSTRUCTIVE SLEEP APNEA (ADULT) (PEDIATRIC)
[2020-01-27 10:38] LABS: ALLENS TEST POSITIVE
--- NOTE | 2020-01-27 10:51 | EKG ---
Test Reason : Blood Pressure : / mmHG Vent. Rate : 087 BPM Atrial Rate : 087 BPM P-R Int : 142 ms QRS Dur : 106 ms QT Int : 358 ms P-R-T Axes : 030 035 000 degrees QTc Int : 430 ms POOR DATA QUALITY, INTERPRETATION MAY BE ADVERSELY AFFECTED NORMAL SINUS RHYTHM INCOMPLETE RIGHT BUNDLE BRANCH BLOCK NO PREVIOUS ECGS AVAILABLE Confirmed by MARLENA BRIDGES MD ([id number]) on 01/27/2020 10:51:00 AM Referred By: Confirmed By:MARLENA BRIDGES MD
[2020-01-27] MEDS ORDERED: PIPERACILLIN/TAZOBACTAM 3.375 GM VIAL IVPB ONE ×3 (11:05→20:43)
[2020-01-27] MEDS ORDERED: DEXTROSE 5%-WATER - 50 ML IVPB ONE ×3 (11:06→20:43)
[2020-01-27] MEDS: PIPERACILLIN/TAZOB 3.375 GM 3.375 GM in DEXTROSE 5%-WATER - 50 ML IVPB SCH ×2 (11:21→16:30)
[2020-01-27] MEDS: MUPIROCIN 2% TOPICAL OINTMENT FOR DECOLONIZATION NS SCH (11:21)
[2020-01-27] MEDS: methylPREDNISolone NA SUCC 125 MG/2 ML VIAL IVPUSH SCH (11:22)
[2020-01-27 13:30] LABS: URINE APPEARANCE Clear; URINE BILIRUBIN Negative (NEGATIVE); URINE COLOR Yellow; URINE GLUCOSE (UA) 2+ (NEGATIVE); URINE KETONE Trace (NEGATIVE); URINE LEUK ESTERASE Negative (NEGATIVE); URINE NITRITE Negative (NEGATIVE); URINE PROTEIN 1+ (NEGATIVE); URINE UROBILINOGEN 0.2 mg/dL (0.2-1.0)
--- NOTE | 2020-01-27 14:15 | PN ---
Teaching Attending Note Name of Resident: Bre Ramey ATTENDING PHYSICIAN STATEMENT I saw and evaluated the patient. I reviewed the resident's note and discussed the case with the resident. I agree with the resident's findings and plan as documented. SUBJECTIVE: Pt seen and examined in the ICU. Febrile and lethargic this AM. Saturating well on nasal cannula. ABG showing likely chronic respiratory acidosis. Placed on BiPAP with some improvement. OBJECTIVE: Vital Signs Period Temp Pulse Resp BP Sys/Miner Pulse Ox Last 24 Hr 98 F-102.3 F 79-113 17-25 126-160/69-109 95-100 Intake & Output 01/24/20 01/25/20 01/26/20 01/27/20 23:59 23:59 23:59 23:59 Intake Total 825 Output Total 400 Balance -400 825 Weight 140.614 kg 140.614 kg Gen: NAD at rest Heart: RRR Lung: decreased breath sounds at the bases Abd: soft, nontender Ext: no edema CBC, BMP 01/27/20 05:50 01/27/20 05:50 Laboratory Tests 01/27/20 05:50 Ferritin 311.9 LD Total 282 H C-Reactive Protein 5.7 H Active Medications Acetaminophen (Tylenol -) 650 mg PO Q6H PRN PRN Reason: FEVER Last Admin: 01/26/20 23:13 Dose: 650 mg Documented by: Chlorhexidine Gluconate (Hibiclens For Decolonization -) 1 applic TP HS SARAH Last Admin: 01/26/20 23:14 Dose: 1 applic Documented by: Heparin Sodium (Porcine) (Heparin -) 7,500 unit SQ TID SARAH Last Admin: 01/27/20 07:10 Dose: 7,500 unit Documented by: Piperacillin Sod/Tazobactam (Sod 3.375 gm/ Dextrose) 50 mls @ 100 mls/hr IVPB Q8H-IV SARAH; Protocol Stop: 01/28/20 09:59 Last Admin: 01/27/20 11:21 Dose: 100 mls/hr Documented by: Sodium Chloride (Normal Saline -) 1,000 mls @ 75 mls/hr IV ASDIR SARAH Last Admin: 01/27/20 10:00 Dose: 75 mls/hr Documented by: Insulin Aspart (Novolog Vial Sliding Scale -) 1 vial SQ ACHS SARAH; Protocol Last Admin: 01/27/20 11:21 Dose: 4 units Documented by: Methylprednisolone Sodium Succinate (Solu-Medrol -) 70 mg IVPUSH DAILY [facility] Stop: 02/01/20 09:59 Last Admin: 01/27/20 11:22 Dose: 70 mg Documented by: Mupirocin (Bactroban Ointment (For Decolonization) -) 1 applic NS BID [facility] Stop: 01/30/20 21:59 Last Admin: 01/27/20 11:21 Dose: 1 applic Documented by: ASSESSMENT AND PLAN: COVID Pneumonia Hypoxia HTN DM - on empiric antibiotics - f/u cultures - received convalescent plasma - empiric medrol - trend ferritin, LDH, CRP - O2 to keep SpO2 >90% - BiPAP as needed - DVT prophylaxis
--- NOTE | 2020-01-27 15:56 | CONS ---
DATE OF CONSULTATION: DATE OF DICTATION: 01/27/2020 CHIEF COMPLAINT: This is a 34-year-old man. 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 He has had several days now of cough and fever. He was tested at [facility] for COVID and was found to be COVID-19 positive. He reports being treated with Levaquin and then with Zithromax with no improvement. He apparently has had progressive shortness of breath and fever. He has had some nonbloody diarrhea. He was admitted to [facility] but left AMA when they wanted to intubate him. He came to [facility] and was admitted on the . He is status post convalescent plasma transfusion on the . He reports he has been having fevers and chills since diagnosis. He is awake and alert. He has had a fever of 102.3 this morning. He has been started on steroids by Pulmonary and is on heparin as well. Piperacillin/tazobactam was started this morning to cover for possible pneumonia. PAST MEDICAL HISTORY: Notable for hypertension, but he does not take any medications. He has never had any surgery. 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 He has family here in [place]. There is no history of cigarette, alcohol, or substance use. He states he is HIV negative. REVIEW OF SYSTEMS: He has had some pleuritic pain. He has had cough, fevers, and chills, intermittent nonbloody diarrhea. PHYSICAL EXAMINATION: Vital Signs: His T-max is 102.3. Current temp is 99.1. Pulse is 79. Blood pressure is 142/93. Respiratory rate 17. He is saturating 99% on 4 L. HEENT: He is normocephalic. He is wearing BiPAP at this time for a probable diagnosis of OSAS. He is otherwise alert. Neck: Supple. Respiratory: His lungs have diminished breath sounds at the bases. Cardiovascular: His heart is regular rate and rhythm. Gastrointestinal: Abdomen is soft, nontender. Extremities: Without edema. LABORATORY: White count is 10.9, hemoglobin 12.4. Platelets are 291. He has 34% lymphocytes. D-dimer is 1322. His BUN is 13 and creatinine 1.1. LDH is 282. CRP on admission was 11.8, today is 5.7. Urinalysis has 3+ glucose, otherwise negative. Blood cultures are negative at 24 hours and repeat have been sent. Chest x-ray shows some mildly increased interstitial markings. 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 Would agree with blood cultures. Would send a Legionella urinary antigen. He is currently on Zosyn, with further recommendations to follow. Inflammatory markers appear to be improving. His oxygenation appears to be stable. Would monitor at this time. overall all status is guarded over 35 minutes spent in the care of this critically ill ICU patient. Case was discussed with Dr. Cavazos. TERESA SAINZ M.D. [id number] MTDD
[2020-01-27] MEDS: ACETAMINOPHEN 325 MG TABLET (FP) PO PRN (18:30)
[2020-01-27] MEDS: CHLORHEXIDINE GLUCONATE 4% CLEANSER FOR DECOLONIZATION TP SCH (21:35)
[2020-01-28] MEDS: INSULIN SLIDING SCALE (NOVOLOG) 1 VIAL SQ SCH ×5 (00:26→22:10)
[2020-01-28] MEDS: HEPARIN NA (PORCINE) 5,000 UNITS/ML 1ML VIAL SQ SCH ×2 (00:27→08:12)
[2020-01-28] MEDS: ACETAMINOPHEN 325 MG TABLET (FP) PO PRN ×2 (04:50→08:30)
[2020-01-28] MEDS ORDERED: DEXTROSE 5%-WATER - 50 ML IVPB ONE ×3 (04:52→21:45)
[2020-01-28] MEDS ORDERED: PIPERACILLIN/TAZOBACTAM 3.375 GM VIAL IVPB ONE ×3 (04:52→21:45)
[2020-01-28] MEDS: PIPERACILLIN/TAZOB 3.375 GM 3.375 GM in DEXTROSE 5%-WATER - 50 ML IVPB SCH ×3 (04:57→20:00)
[2020-01-28 07:54] LABS: BASO % 0.2 % (0-2.0); HEMATOCRIT 39.2 % (35.4-49); HEMOGLOBIN 12.4 GM/dL (11.7-16.9); LYMPH % 19.4 % (8-40); MCH 23.2 pg (25.7-33.7); MCHC 31.5 g/dl (32.0-35.9); MEAN CELL VOLUME 73.9 fl (80-96); MONO % 6.8 % (3.8-10.2); NEUT % 73.6 % (42.8-82.8); PLATELET COUNT 279 K/MM3 (134-434); RBC 5.31 M/mm3 (4.00-5.60); RDW 16.2 % (11.9-15.9); WHITE BLOOD COUNT 11.8 K/mm3 (4.0-10.0)
[2020-01-28 07:57] LABS: ALBUMIN 2.9 g/dl (3.4-5.0); BILIRUBIN,TOTAL 0.6 mg/dL (0.2-1); BLOOD UREA NITROGEN 12.2 mg/dL (7-18); CREATININE 1.2 mg/dL (0.55-1.3); MAGNESIUM 1.9 mg/dL (1.8-2.4); PHOSPHOROUS 3.1 mg/dL (2.5-4.9)
[2020-01-28] MEDS: MUPIROCIN 2% TOPICAL OINTMENT FOR DECOLONIZATION NS SCH ×3 (08:00→22:10)
[2020-01-28] MEDS: SODIUM CHLORIDE 1,000 ML IV SCH (09:34)
[2020-01-28] MEDS: methylPREDNISolone NA SUCC 125 MG/2 ML VIAL IVPUSH SCH (09:34)
--- NOTE | 2020-01-28 11:19 | PN ---
Progress Note (short form) - Note Progress Note: PULMONARY/CCM SUBJECTIVE: Pt seen and examined in the ICU. Persistent fevers. Saturating well on nasal cannula. OBJECTIVE: Vital Signs Period Temp Pulse Resp BP Sys/Miner Pulse Ox Last 24 Hr 98.9 F-103.5 F 81-105 20-26 105-148/64-96 95-100 Intake & Output 01/25/20 01/26/20 01/27/20 01/28/20 23:59 23:59 23:59 23:59 Intake Total 825 850 Output Total 400 1000 Balance -400 825 -150 Weight 140.614 kg 140.614 kg Gen: NAD at rest Heart: RRR Lung: decreased breath sounds at the bases Abd: soft, nontender Ext: no edema CXR: bilateral infiltrates CBC, BMP 01/28/20 06:30 01/28/20 06:30 ABG Results ABG pH 7.41 (7.35-7.45) 01/27/20 09:32 ABG pCO2 at Pt Temp 50.4 mmHg (35-45) H 01/27/20 09:32 ABG pO2 at Pt Temp 71.2 mmHg (80-100) L 01/27/20 09:32 ABG HCO3 31.5 mmol/L (22-27) H 01/27/20 09:32 ABG O2 Sat (Measured) 93.3 % (95-98) L 01/27/20 09:32 ABG O2 Content 15.7 % vol 01/27/20 09:32 ABG Base Excess 6.3 mmol/L (-2-2) H 01/27/20 09:32 Active Medications Acetaminophen (Tylenol -) 650 mg PO Q6H PRN PRN Reason: FEVER Last Admin: 01/28/20 08:30 Dose: 650 mg Documented by: Apixaban (Eliquis -) 5 mg PO BID SARAH Chlorhexidine Gluconate (Hibiclens For Decolonization -) 1 applic TP HS SARAH Last Admin: 01/27/20 21:35 Dose: 1 applic Documented by: Insulin Aspart (Novolog Vial Sliding Scale -) 1 vial SQ ACHS [facility]; Protocol Last Admin: 01/28/20 08:13 Dose: 2 units Documented by: Mupirocin (Bactroban Ointment (For Decolonization) -) 1 applic NS BID [facility] Stop: 01/30/20 21:59 Last Admin: 01/28/20 10:15 Dose: 1 applic Documented by: ASSESSMENT AND PLAN: COVID Pneumonia Hypoxia HTN DM - s/p empiric antibiotics - f/u cultures - received convalescent plasma - trend ferritin, LDH, CRP - O2 to keep SpO2 >90% - BiPAP as needed - DVT prophylaxis
[2020-01-28] MEDS: APIXABAN 5 MG TABLET PO SCH ×2 (11:55→22:10)
--- NOTE | 2020-01-28 12:06 | EKG ---
Test Reason : Blood Pressure : / mmHG Vent. Rate : 093 BPM Atrial Rate : 093 BPM P-R Int : 150 ms QRS Dur : 100 ms QT Int : 332 ms P-R-T Axes : 030 012 004 degrees QTc Int : 412 ms NORMAL SINUS RHYTHM NON-SPECIFIC INTRA-VENTRICULAR CONDUCTION DELAY Confirmed by MARLENA BRIDGES MD ([id number]) on 01/28/2020 12:06:35 PM Referred By: Confirmed By:MARLENA BRIDGES MD
--- NOTE | 2020-01-28 13:39 | PN ---
Progress Note (short form) - Note Progress Note: intermittent fevers s/p convalescent plasma on 01/25 recent diagnosis covid 19 positive was on zithromax prior to admission alert +cough with yellow sputum production Vital Signs Period Temp Pulse Resp BP Sys/Miner Pulse Ox Last 24 Hr 99.0 F-103.5 F 81-105 20-26 105-148/64-96 95-100 cor-rrr lungs decreased bs at bases abd soft,nt ext no edema CBC, BMP 01/28/20 06:30 01/28/20 06:30 Microbiology 01/27/20 14:15 Sputum - Expectorated Gram Stain - Final 01/27/20 14:15 Sputum - Expectorated Sputum Culture - Preliminary Pending Organism 01/27/20 09:30 Blood - Peripheral Venous Blood Culture - Preliminary NO GROWTH OBTAINED AFTER 24 HOURS, INCUBATION TO CONTINUE FOR 4 DAYS. 01/27/20 09:30 Blood - Peripheral Venous Blood Culture - Preliminary NO GROWTH OBTAINED AFTER 24 HOURS, INCUBATION TO CONTINUE FOR 4 DAYS. 01/25/20 16:29 Blood - Peripheral Venous Blood Culture - Preliminary NO GROWTH OBTAINED AFTER 48 HOURS, INCUBATION TO CONTINUE FOR 3 DAYS. 01/25/20 16:29 Blood - Peripheral Venous Blood Culture - Preliminary NO GROWTH OBTAINED AFTER 48 HOURS, INCUBATION TO CONTINUE FOR 3 DAYS. 01/27/20 09:20 Urine - Urine Clean Catch Legionella Antigen - Final 01/27/20 09:20 Urine - Urine Clean Catch Streptococcus pneumoniae Antigen (M - Final a/p covid positive hypoxia/pneumonia s/p convalescent plasma continue zosyn will follow
--- NOTE | 2020-01-28 18:04 | PN ---
Progress Note (short form) - Note Progress Note: Discussed updates with patient's sister (Irene [phone]) with patient's person and will act as family POC if needed. To be updated in demographics section of patient's chart. Estevan Rowe, DO - IM PGY-3
[2020-01-28] MEDS: CHLORHEXIDINE GLUCONATE 4% CLEANSER FOR DECOLONIZATION TP SCH (22:10)
[2020-01-29] MEDS ORDERED: PIPERACILLIN/TAZOBACTAM 3.375 GM VIAL IVPB ONE ×3 (03:11→17:48)
[2020-01-29] MEDS ORDERED: DEXTROSE 5%-WATER - 50 ML IVPB ONE ×3 (03:11→17:48)
[2020-01-29] MEDS ORDERED: ESMOLOL 2500 MG/250 ML 2,500,000 MCG/250 ML INFUS.BAG IVPB ONE (03:18)
[2020-01-29] MEDS: PIPERACILLIN/TAZOB 3.375 GM 3.375 GM in DEXTROSE 5%-WATER - 50 ML IVPB SCH ×3 (03:30→17:52)
[2020-01-29] MEDS: ACETAMINOPHEN 325 MG TABLET (FP) PO PRN ×2 (03:30→10:00)
[2020-01-29] MEDS: ALBUTEROL SO4 HFA INHALER IH PRN ×2 (03:47→09:39)
[2020-01-29] MEDS: guaiFENesin 200 MG/10 ML 10 ML UNIT-DOSE CUPS PO PRN ×3 (03:47→22:28)
[2020-01-29] MEDS: INSULIN SLIDING SCALE (NOVOLOG) 1 VIAL SQ SCH ×4 (06:20→22:07)
[2020-01-29 07:17] LABS: HEMATOCRIT 38.6 % (35.4-49); HEMOGLOBIN 12.3 GM/dL (11.7-16.9); MCH 23.7 pg (25.7-33.7); MCHC 31.8 g/dl (32.0-35.9); MEAN CELL VOLUME 74.5 fl (80-96); MEAN PLT VOLUME 8.8 fl (7.5-11.1); PLATELET COUNT 290 K/MM3 (134-434); RBC 5.18 M/mm3 (4.00-5.60); RDW 15.7 % (11.9-15.9); WHITE BLOOD COUNT 8.7 K/mm3 (4.0-10.0)
[2020-01-29 08:39] LABS: BLOOD UREA NITROGEN 15.9 mg/dL (7-18); CALCIUM 8.2 mg/dL (8.5-10.1); CREATININE 1.1 mg/dL (0.55-1.3); POTASSIUM 4.8 mmol/L (3.5-5.1)
[2020-01-29] MEDS: MUPIROCIN 2% TOPICAL OINTMENT FOR DECOLONIZATION NS SCH ×2 (09:38→22:07)
[2020-01-29] MEDS: APIXABAN 5 MG TABLET PO SCH ×2 (09:38→22:02)
--- NOTE | 2020-01-29 11:18 | PN ---
Progress Note (short form) - Note Progress Note: PULMONARY/CCM SUBJECTIVE: Pt seen and examined in the ICU. More awake, alert today. Saturating well on nasal cannula. OBJECTIVE: Vital Signs Period Temp Pulse Resp BP Sys/Mnier Pulse Ox Last 24 Hr 98.8 F-100.1 F 75-97 18-26 100-138/58-87 94-100 Intake & Output 01/26/20 01/27/20 01/28/20 01/29/20 23:59 23:59 23:59 23:59 Intake Total 809 794 3298 440 Output Total 1000 1650 450 Balance 825 -150 -640 -10 Weight 140.614 kg Gen: NAD at rest Heart: RRR Lung: decreased breath sounds at the bases Abd: soft, nontender Ext: no edema CXR: bilateral infiltrates CBC, BMP 01/29/20 06:25 01/29/20 06:25 Laboratory Tests 01/29/20 06:25 LD Total 465 H C-Reactive Protein 10.3 H Active Medications Acetaminophen (Tylenol -) 650 mg PO Q6H PRN PRN Reason: FEVER Last Admin: 01/29/20 03:30 Dose: 650 mg Documented by: Albuterol Sulfate (Ventolin Hfa Inhaler -) 1 puff IH Q4H PRN PRN Reason: SHORT OF BREATH/WHEEZING Last Admin: 01/29/20 09:39 Dose: 1 puff Documented by: Apixaban (Eliquis -) 5 mg PO BID [facility] Last Admin: 01/29/20 09:38 Dose: 5 mg Documented by: Chlorhexidine Gluconate (Hibiclens For Decolonization -) 1 applic TP HS [facility] Last Admin: 01/28/20 22:10 Dose: 1 applic Documented by: Guaifenesin (Robitussin -) 10 ml PO Q6H PRN PRN Reason: COUGH Last Admin: 01/29/20 09:39 Dose: 10 ml Documented by: Piperacillin Sod/Tazobactam (Sod 3.375 gm/ Dextrose) 50 mls @ 100 mls/hr IVPB Q8H-IV [facility]; Protocol Last Admin: 01/29/20 09:38 Dose: 100 mls/hr Documented by: Insulin Aspart (Novolog Vial Sliding Scale -) 1 vial SQ [facility]; Protocol Last Admin: 05/03/20 06:20 Dose: 6 units Documented by: Mupirocin (Bactroban Ointment (For Decolonization) -) 1 applic NS BID [facility] Stop: 01/30/20 21:59 Last Admin: 01/29/20 09:38 Dose: 1 applic Documented by: ASSESSMENT AND PLAN: COVID Pneumonia Hypoxia HTN DM - on empiric antibiotics - f/u cultures - received convalescent plasma - trend ferritin, LDH, CRP - O2 to keep SpO2 >90% - BiPAP as needed - DVT prophylaxis
[2020-01-29] MEDS ORDERED: ACETAMINOPHEN 1000 MG/100 ML VIAL (NON FORMULARY) IVPB ONE (16:49)
[2020-01-29] MEDS: CHLORHEXIDINE GLUCONATE 4% CLEANSER FOR DECOLONIZATION TP SCH (22:07)
[2020-01-30] MEDS: ACETAMINOPHEN 325 MG TABLET (FP) PO PRN ×3 (00:23→14:00)
[2020-01-30] MEDS ORDERED: DEXTROSE 5%-WATER - 50 ML IVPB ONE ×3 (01:00→18:07)
[2020-01-30] MEDS ORDERED: PIPERACILLIN/TAZOBACTAM 3.375 GM VIAL IVPB ONE ×4 (01:00→18:41)
[2020-01-30] MEDS: PIPERACILLIN/TAZOB 3.375 GM 3.375 GM in DEXTROSE 5%-WATER - 50 ML IVPB SCH ×3 (02:06→18:48)
[2020-01-30] MEDS: ALBUTEROL SO4 HFA INHALER IH PRN (02:16)
[2020-01-30] MEDS: INSULIN SLIDING SCALE (NOVOLOG) 1 VIAL SQ SCH ×4 (06:08→21:38)
[2020-01-30 08:58] LABS: BASO % 0.5 % (0-2.0); EOS % 0.1 % (0-4.5); HEMOGLOBIN 12.6 GM/dL (11.7-16.9); LYMPH % 38.5 % (8-40); MCH 23.2 pg (25.7-33.7); MCHC 31.5 g/dl (32.0-35.9); MEAN CELL VOLUME 73.7 fl (80-96); MEAN PLT VOLUME 8.6 fl (7.5-11.1); MONO % 6.3 % (3.8-10.2); NEUT % 54.6 % (42.8-82.8); PLATELET COUNT 311 K/MM3 (134-434); RBC 5.43 M/mm3 (4.00-5.60); RDW 15.9 % (11.9-15.9); WHITE BLOOD COUNT 6.1 K/mm3 (4.0-10.0)
[2020-01-30 08:59] LABS: ALBUMIN 2.6 g/dl (3.4-5.0); BILIRUBIN,TOTAL 0.6 mg/dL (0.2-1); BLOOD UREA NITROGEN 11.1 mg/dL (7-18); CALCIUM 8.1 mg/dL (8.5-10.1); CREATININE 0.9 mg/dL (0.55-1.3); MAGNESIUM 2.3 mg/dL (1.8-2.4); POTASSIUM 4.3 mmol/L (3.5-5.1); TOT PROT 6.9 g/dl (6.4-8.2)
--- NOTE | 2020-01-30 11:16 | PN ---
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 Laboratory Results - last 24 hr 01/29/20 01/29/20 01/29/20 12:23 16:41 21:49 WBC RBC Hgb Hct MCV MCH MCHC RDW Plt Count MPV Absolute Neuts (auto) Neutrophils % Lymphocytes % Monocytes % Eosinophils % Basophils % Nucleated RBC % Sodium Potassium Chloride Carbon Dioxide Anion Gap BUN Creatinine Est GFR (CKD-EPI)AfAm Est GFR (CKD-EPI)NonAf POC Glucometer 198 245 285 Random Glucose Calcium Phosphorus Magnesium Ferritin Total Bilirubin AST ALT Alkaline Phosphatase LD Total C-Reactive Protein Total Protein Albumin 01/30/20 01/30/20 01/30/20 06:02 07:00 07:00 WBC 6.1 RBC 5.43 Hgb 12.6 Hct 40.0 MCV 73.7 L MCH 23.2 L MCHC 31.5 L RDW 15.9 Plt Count 311 MPV 8.6 Absolute Neuts (auto) 3.3 Neutrophils % 54.6 D Lymphocytes % 38.5 D Monocytes % 6.3 Eosinophils % 0.1 D Basophils % 0.5 Nucleated RBC % 0 Sodium 137 Potassium 4.3 Chloride 97 L Carbon Dioxide 31 Anion Gap 9 BUN 11.1 Creatinine 0.9 Est GFR (CKD-EPI)AfAm 127.80 Est GFR (CKD-EPI)NonAf 110.27 POC Glucometer 196 Random Glucose 195 H Calcium 8.1 L Phosphorus 4.0 Magnesium 2.3 Ferritin 540.4 H Total Bilirubin 0.6 AST 29 ALT 35 Alkaline Phosphatase 70 LD Total 428 H C-Reactive Protein 9.8 H Total Protein 6.9 Albumin 2.6 L Active Medications Generic Name Dose Route Start Last Admin Trade Name Freq PRN Reason Stop Dose Admin Acetaminophen 650 mg 01/26/20 23:02 01/30/20 06:20 Tylenol - PO 650 mg Q6H PRN Administration FEVER Albuterol Sulfate 1 puff 01/29/20 03:14 01/30/20 02:16 Ventolin Hfa Inhaler - IH 1 puff Q4H PRN Administration SHORT OF BREATH/WHEEZING Apixaban 5 mg 01/28/20 10:00 01/29/20 22:02 Eliquis - PO 5 mg BID SARAH Administration Chlorhexidine Gluconate 1 applic 01/25/20 22:00 01/29/20 22:07 Hibiclens For Decolonization - TP 1 applic HS SARAH Administration Guaifenesin 10 ml 01/29/20 03:14 01/29/20 22:28 Robitussin - PO 10 ml Q6H PRN Administration COUGH Piperacillin Sod/Tazobactam 50 mls @ 100 mls/hr 01/28/20 13:45 01/30/20 02:06 Sod 3.375 gm/ Dextrose IVPB 100 mls/hr Q8H-IV [facility] Administration Protocol Insulin Aspart 1 vial 01/26/20 11:00 01/30/20 06:08 Novolog Vial Sliding Scale - SQ 2 units ACHS [facility] Administration Protocol Mupirocin 1 applic 01/25/20 22:00 01/29/20 22:07 Bactroban Ointment (For Decolonization) - NS 01/30/20 21:59 1 applic BID [facility]AH Administration ASSESSMENT/PLAN: Pt is a 34 y/o male with HTN (not on meds) and newly diagnosed DM on admission, who presents with 3-4 days of increasing dyspnea and diarrhea. Two days ago he began having chest pain with coughing. 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 neuro: -CT head given continued lethargy cardio: -monitor BP pulm: #COVID -on NC -CXR b/l base infiltrates not significantly changed -BiPAP as needed -incentive spirometer -Legionella and step pneumo negative -sputum positive rare H. parainfluenzae endo: -A1C 10.5 -SSI -BGMs -f/u outpatient ID: -s/p solu-medrol -s/p convalescent plasma 01/25 -ID following DVT Ppx heparin 7500 TID FEN PO fluids monitor labs regular diet dispo: ICU monitoring FULL CODE Visit type - Emergency Visit Emergency Visit: Yes ED Registration Date: 01/25/20 Care time: The patient presented to the Emergency Department on the above date and was hospitalized for further evaluation of their emergent condition. - New Patient This patient is new to me today: No - Critical Care Critical Care patient: Yes Total Critical Care Time (in minutes): 35 Critical Care Statement: The care of this patient involved high complexity decision making to prevent further life threatening deterioration of the patient's condition and/or to evaluate & treat vital organ system(s) failure or risk of failure. ATTENDING PHYSICIAN STATEMENT I saw and evaluated the patient. I reviewed the resident's note and discussed the case with the resident. I agree with the resident's findings and plan as documented. SUBJECTIVE: OBJECTIVE: ASSESSMENT AND PLAN:
[2020-01-30] MEDS: MUPIROCIN 2% TOPICAL OINTMENT FOR DECOLONIZATION NS SCH (11:20)
[2020-01-30] MEDS: APIXABAN 5 MG TABLET PO SCH ×2 (11:26→21:01)
[2020-01-30] MEDS ORDERED: INSULIN (NOVOLOG) ASPART 100 UNITS/ML 10ML VIAL ONE (12:26)
--- NOTE | 2020-01-30 12:57 | PN ---
Teaching Attending Note Name of Resident: Bre Ramey ATTENDING PHYSICIAN STATEMENT I saw and evaluated the patient. I reviewed the resident's note and discussed the case with the resident. I agree with the resident's findings and plan as documented. PULMONARY/CCM SUBJECTIVE: Pt seen and examined in the ICU. Remains lethargic but arousable. Still spiking fevers. Saturating well on 4L nasal cannula. OBJECTIVE: Vital Signs Period Temp Pulse Resp BP Sys/Miner Pulse Ox Last 24 Hr 99.1 F-102.4 F 85-103 15-26 116-133/55-87 98-100 Intake & Output 01/27/20 01/28/20 01/29/20 01/30/20 23:59 23:59 23:59 23:59 Intake Total 850 1010 850 Output Total 1000 1650 900 Balance -150 -640 -50 Gen: NAD at rest Heart: RRR Lung: decreased breath sounds at the bases Abd: soft, nontender Ext: no edema CXR: bilateral infiltrates CBC, BMP 01/30/20 07:00 01/30/20 07:00 ABG Results ABG pH 7.41 (7.35-7.45) 01/27/20 09:32 ABG pCO2 at Pt Temp 50.4 mmHg (35-45) H 01/27/20 09:32 ABG pO2 at Pt Temp 71.2 mmHg (80-100) L 01/27/20 09:32 ABG HCO3 31.5 mmol/L (22-27) H 01/27/20 09:32 ABG O2 Sat (Measured) 93.3 % (95-98) L 01/27/20 09:32 ABG O2 Content 15.7 % vol 01/27/20 09:32 ABG Base Excess 6.3 mmol/L (-2-2) H 01/27/20 09:32 Laboratory Tests 01/30/20 07:00 Ferritin 540.4 H LD Total 428 H C-Reactive Protein 9.8 H Active Medications Acetaminophen (Tylenol -) 650 mg PO Q6H PRN PRN Reason: FEVER Last Admin: 01/30/20 06:20 Dose: 650 mg Documented by: Albuterol Sulfate (Ventolin Hfa Inhaler -) 1 puff IH Q4H PRN PRN Reason: SHORT OF BREATH/WHEEZING Last Admin: 01/30/20 02:16 Dose: 1 puff Documented by: Apixaban (Eliquis -) 5 mg PO BID [facility] Last Admin: 01/30/20 11:26 Dose: 5 mg Documented by: Chlorhexidine Gluconate (Hibiclens For Decolonization -) 1 applic TP HS [facility]AH Last Admin: 01/29/20 22:07 Dose: 1 applic Documented by: Diphenhydramine HCl (Benadryl Injection -) 50 mg IVPUSH HS PRN PRN Reason: INSOMNIA Guaifenesin (Robitussin -) 10 ml PO Q6H PRN PRN Reason: COUGH Last Admin: 01/29/20 22:28 Dose: 10 ml Documented by: Piperacillin Sod/Tazobactam (Sod 3.375 gm/ Dextrose) 50 mls @ 100 mls/hr IVPB Q8H-IV [facility]; Protocol Last Admin: 01/30/20 11:26 Dose: 100 mls/hr Documented by: Insulin Aspart (Novolog Vial Sliding Scale -) 1 vial SQ ACHS [facility]; Protocol Last Admin: 01/30/20 12:22 Dose: 6 units Documented by: Mupirocin (Bactroban Ointment (For Decolonization) -) 1 applic NS BID [facility] Stop: 01/30/20 21:59 Last Admin: 01/30/20 11:20 Dose: 1 applic Documented by: ASSESSMENT AND PLAN: COVID Pneumonia Hypoxia HTN DM - on empiric antibiotics - received convalescent plasma - trend ferritin, LDH, CRP - O2 to keep SpO2 >90% - BiPAP as needed - DVT prophylaxis
[2020-01-30] MEDS ORDERED: ONDANSETRON 4 MG/2 ML VIAL IVPUSH ONE (13:57)
[2020-01-30] MEDS ORDERED: ONDANSETRON 4 MG/2 ML VIAL ONE (14:08)
--- NOTE | 2020-01-30 15:40 | PN ---
Progress Note (short form) - Note Progress Note: afebrile c/o headache- head ct negative this am s/p convalescent plasma on 01/25 recent diagnosis covid 19 positive was on zithromax prior to admission alert notes fatigue Vital Signs Period Temp Pulse Resp BP Sys/Miner Pulse Ox Last 24 Hr 100.3 F-102.4 F 88-103 15-26 116-133/55-87 95-100 cor-rrr lungs decreased bs at bases abd soft,nt ext no edema CBC, BMP 01/30/20 07:00 01/30/20 07:00 Microbiology 01/27/20 14:15 Sputum - Expectorated Gram Stain - Final 01/27/20 14:15 Sputum - Expectorated Sputum Culture - Final Haemophilus Parainfluenzae Ii 01/27/20 09:30 Blood - Peripheral Venous Blood Culture - Preliminary NO GROWTH OBTAINED AFTER 72 HOURS, INCUBATION TO CONTINUE FOR 2 DAYS. 01/27/20 09:30 Blood - Peripheral Venous Blood Culture - Preliminary NO GROWTH OBTAINED AFTER 72 HOURS, INCUBATION TO CONTINUE FOR 2 DAYS. 01/25/20 16:29 Blood - Peripheral Venous Blood Culture - Preliminary NO GROWTH OBTAINED AFTER 96 HOURS, INCUBATION TO CONTINUE FOR 1 DAYS. 01/25/20 16:29 Blood - Peripheral Venous Blood Culture - Preliminary NO GROWTH OBTAINED AFTER 96 HOURS, INCUBATION TO CONTINUE FOR 1 DAYS. 01/27/20 09:20 Urine - Urine Clean Catch Legionella Antigen - Final 01/27/20 09:20 Urine - Urine Clean Catch Streptococcus pneumoniae Antigen (M - Final head ct negative cxray unchanged a/p covid positive hypoxia/pneumonia s/p convalescent plasma continue zosyn will follow
[2020-01-30] MEDS ORDERED: TOCILIZUMAB (ACTEMRA) 400 MG/20 ML VIAL IVPB ONE (16:30)
[2020-01-30] MEDS ORDERED: TOCILIZUMAB 800 MG in SODIUM CHLORIDE 60 ML IVPB ONE (17:30)
[2020-01-30] MEDS: CHLORHEXIDINE GLUCONATE 4% CLEANSER FOR DECOLONIZATION TP SCH (21:01)
[2020-01-31] MEDS ORDERED: PIPERACILLIN/TAZOBACTAM 3.375 GM VIAL IVPB ONE ×2 (01:42→11:28)
[2020-01-31] MEDS ORDERED: DEXTROSE 5%-WATER - 50 ML IVPB ONE ×2 (01:42→11:29)
[2020-01-31] MEDS: PIPERACILLIN/TAZOB 3.375 GM 3.375 GM in DEXTROSE 5%-WATER - 50 ML IVPB SCH ×2 (02:09→11:33)
[2020-01-31] MEDS: INSULIN SLIDING SCALE (NOVOLOG) 1 VIAL SQ SCH ×4 (06:42→22:00)
[2020-01-31 07:33] LABS: BASO % 0.3 % (0-2.0); EOS % 0.3 % (0-4.5); HEMATOCRIT 39.2 % (35.4-49); HEMOGLOBIN 12.4 GM/dL (11.7-16.9); LYMPH % 56.6 % (8-40); MCH 23.4 pg (25.7-33.7); MCHC 31.5 g/dl (32.0-35.9); MEAN CELL VOLUME 74.2 fl (80-96); MEAN PLT VOLUME 8.2 fl (7.5-11.1); NEUT % 37.8 % (42.8-82.8); PLATELET COUNT 322 K/MM3 (134-434); RBC 5.28 M/mm3 (4.00-5.60); WHITE BLOOD COUNT 3.7 K/mm3 (4.0-10.0)
[2020-01-31 08:08] LABS: ALBUMIN 2.5 g/dl (3.4-5.0); ALK PHOS 66 U/L (45-117); ANION GAP 6 MMOL/L (8-16); BILIRUBIN,TOTAL 0.4 mg/dL (0.2-1); BLOOD UREA NITROGEN 11.9 mg/dL (7-18); CHLORIDE 97 mmol/L (98-107); CO2 33 mmol/L (21-32); GLUCOSE,RANDOM 194 mg/dL (74-106); LDH 530 U/L (87-246); MAGNESIUM 2.3 mg/dL (1.8-2.4); PHOSPHOROUS 3.8 mg/dL (2.5-4.9); POTASSIUM 4.6 mmol/L (3.5-5.1); SGOT/AST 39 U/L (15-37); SGPT/ALT 37 U/L (13-61); SODIUM 136 mmol/L (136-145); TOT PROT 6.7 g/dl (6.4-8.2)
--- NOTE | 2020-01-31 09:06 | PN ---
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 Laboratory Results - last 24 hr 01/30/20 01/30/20 01/30/20 07:00 12:16 18:38 WBC 6.1 RBC 5.43 Hgb 12.6 Hct 40.0 MCV 73.7 L MCH 23.2 L MCHC 31.5 L RDW 15.9 Plt Count 311 MPV 8.6 Absolute Neuts (auto) 3.3 Neutrophils % 54.6 D Lymphocytes % 38.5 D Monocytes % 6.3 Eosinophils % 0.1 D Basophils % 0.5 Nucleated RBC % 0 Sodium Potassium Chloride Carbon Dioxide Anion Gap BUN Creatinine Est GFR (CKD-EPI)AfAm Est GFR (CKD-EPI)NonAf POC Glucometer 259 123 Random Glucose Calcium Phosphorus Magnesium Ferritin Total Bilirubin AST ALT Alkaline Phosphatase LD Total C-Reactive Protein Total Protein Albumin 01/30/20 01/31/20 01/31/20 21:36 05:39 06:25 WBC RBC Hgb Hct MCV MCH MCHC RDW Plt Count MPV Absolute Neuts (auto) Neutrophils % Lymphocytes % Monocytes % Eosinophils % Basophils % Nucleated RBC % Sodium 136 Potassium 4.6 Chloride 97 L Carbon Dioxide 33 H Anion Gap 6 L BUN 11.9 Creatinine 1.0 Est GFR (CKD-EPI)AfAm 112.51 Est GFR (CKD-EPI)NonAf 97.08 POC Glucometer 196 216 Random Glucose 194 H Calcium 8.0 L Phosphorus 3.8 Magnesium 2.3 Ferritin 741.6 H Total Bilirubin 0.4 AST 39 H ALT 37 Alkaline Phosphatase 66 LD Total 530 H C-Reactive Protein 8.9 H Total Protein 6.7 Albumin 2.5 L 01/31/20 01/31/20 06:25 06:35 WBC 3.7 L RBC 5.28 Hgb 12.4 Hct 39.2 MCV 74.2 L MCH 23.4 L MCHC 31.5 L RDW 16.0 H Plt Count 322 MPV 8.2 Absolute Neuts (auto) 1.4 L Neutrophils % 37.8 L D Lymphocytes % 56.6 H D Monocytes % 5.0 Eosinophils % 0.3 D Basophils % 0.3 Nucleated RBC % 0 Sodium Potassium Chloride Carbon Dioxide Anion Gap BUN Creatinine Est GFR (CKD-EPI)AfAm Est GFR (CKD-EPI)NonAf POC Glucometer 190 Random Glucose Calcium Phosphorus Magnesium Ferritin Total Bilirubin AST ALT Alkaline Phosphatase LD Total C-Reactive Protein Total Protein Albumin Active Medications Generic Name Dose Route Start Last Admin Trade Name Freq PRN Reason Stop Dose Admin Acetaminophen 650 mg 01/26/20 23:02 01/30/20 14:00 Tylenol - PO 650 mg Q6H PRN Administration FEVER Albuterol Sulfate 1 puff 01/29/20 03:14 01/30/20 02:16 Ventolin Hfa Inhaler - IH 1 puff Q4H PRN Administration SHORT OF BREATH/WHEEZING Apixaban 5 mg 01/28/20 10:00 01/30/20 21:01 Eliquis - PO 5 mg BID SARAH Administration Chlorhexidine Gluconate 1 applic 01/25/20 22:00 01/30/20 21:01 Hibiclens For Decolonization - TP 1 applic HS SARAH Administration Diphenhydramine HCl 50 mg 01/30/20 22:00 Benadryl Injection - IVPUSH HS PRN INSOMNIA Guaifenesin 10 ml 01/29/20 03:14 01/29/20 22:28 Robitussin - PO 10 ml Q6H PRN Administration COUGH Piperacillin Sod/Tazobactam 50 mls @ 100 mls/hr 01/28/20 13:45 01/31/20 02:09 Sod 3.375 gm/ Dextrose IVPB 100 mls/hr Q8H-IV [facility] Administration Protocol Insulin Aspart 1 vial 01/26/20 11:00 01/31/20 06:42 Novolog Vial Sliding Scale - SQ 2 units ACHS [facility] Administration Protocol ASSESSMENT/PLAN: Pt is a 34 y/o male with HTN (not on meds) and newly diagnosed DM on admission, who presents with 3-4 days of increasing dyspnea and diarrhea. Two days ago he began having chest pain with coughing. 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 neuro: -?COVID encephalitis -continued intermittent AMS- improvement with HFOT -CT head negative for acute processes yesterday cardio: -monitor BP, stable after tocolizumab -troponin, BNP negative pulm: #COVID -on HFOT -CXR b/l worsening infiltrates -BiPAP as needed -incentive spirometer -Legionella and step pneumo negative -sputum positive rare H. parainfluenzae endo: -A1C 10.5 -SSI -BGMs -f/u outpatient ID: -solu-medrol 125mg Q6H -s/p convalescent plasma 01/25 -s/p tocolizumab 01/29 -ID following DVT Ppx Eliquis 5mg BID FEN PO fluids monitor labs regular diet dispo: ICU monitoring FULL CODE Visit type - Emergency Visit Emergency Visit: Yes ED Registration Date: 01/25/20 Care time: The patient presented to the Emergency Department on the above date and was hospitalized for further evaluation of their emergent condition. - New Patient This patient is new to me today: No - Critical Care Critical Care patient: Yes Total Critical Care Time (in minutes): 40 Critical Care Statement: The care of this patient involved high complexity decis ion making to prevent further life threatening deterioration of the patient's condition and/or to evaluate & treat vital organ system(s) failure or risk of failure. ATTENDING PHYSICIAN STATEMENT I saw and evaluated the patient. I reviewed the resident's note and discussed the case with the resident. I agree with the resident's findings and plan as documented. SUBJECTIVE: OBJECTIVE: ASSESSMENT AND PLAN:
[2020-01-31 11:16] LABS: N-TERMINAL BNP < 5.0 pg/ml (5-125)
[2020-01-31] MEDS: methylPREDNISolone NA SUCC 125 MG/2 ML VIAL IVPUSH SCH ×3 (11:33→21:34)
--- NOTE | 2020-01-31 11:45 | PN ---
Teaching Attending Note Name of Resident: Bre Ramey ATTENDING PHYSICIAN STATEMENT I saw and evaluated the patient. I reviewed the resident's note and discussed the case with the resident. I agree with the resident's findings and plan as documented. PULMONARY/CCM SUBJECTIVE: Pt seen and examined in the ICU. Became hypoxic yesterday, now requiring NRB. Remains lethargic but arousable. Received tocilizumab yesterday. OBJECTIVE: Vital Signs Period Temp Pulse Resp BP Sys/Miner Pulse Ox Last 24 Hr 99.3 F-100.2 F 66-109 18-26 91-134/47-104 96-100 Intake & Output 01/28/20 01/29/20 01/30/20 01/31/20 23:59 23:59 23:59 23:59 Intake Total 1010 850 300 Output Total 1650 900 400 600 Balance -640 -50 -400 -300 Gen: NAD at rest Heart: RRR Lung: decreased breath sounds at the bases Abd: soft, nontender Ext: no edema CXR: worsening bilateral infiltrates CBC, BMP 01/31/20 06:25 01/31/20 06:25 Laboratory Tests 01/31/20 06:25 Ferritin 741.6 H LD Total 530 H C-Reactive Protein 8.9 H Active Medications Acetaminophen (Tylenol -) 650 mg PO Q6H PRN PRN Reason: FEVER Last Admin: 01/30/20 14:00 Dose: 650 mg Documented by: Albuterol Sulfate (Ventolin Hfa Inhaler -) 1 puff IH Q4H PRN PRN Reason: SHORT OF BREATH/WHEEZING Last Admin: 01/30/20 02:16 Dose: 1 puff Documented by: Apixaban (Eliquis -) 5 mg PO BID [facility] Last Admin: 01/30/20 21:01 Dose: 5 mg Documented by: Chlorhexidine Gluconate (Hibiclens For Decolonization -) 1 applic TP HS [facility] Last Admin: 01/30/20 21:01 Dose: 1 applic Documented by: Diphenhydramine HCl (Benadryl Injection -) 50 mg IVPUSH HS PRN PRN Reason: INSOMNIA Guaifenesin (Robitussin -) 10 ml PO Q6H PRN PRN Reason: COUGH Last Admin: 01/29/20 22:28 Dose: 10 ml Documented by: Piperacillin Sod/Tazobactam (Sod 3.375 gm/ Dextrose) 50 mls @ 100 mls/hr IVPB Q8H-IV [facility]; Protocol Last Admin: 01/31/20 11:33 Dose: 100 mls/hr Documented by: Insulin Aspart (Novolog Vial Sliding Scale -) 1 vial SQ ACHS [facility]; Protocol Last Admin: 01/31/20 11:26 Dose: 2 units Documented by: Methylprednisolone Sodium Succinate (Solu-Medrol -) 125 mg IVPUSH Q6H-IV [facility] Last Admin: 01/31/20 11:33 Dose: 125 mg Documented by: ASSESSMENT AND PLAN: Acute Hypoxic Respiratory Failure COVID Pneumonia HTN DM - s/p tocilizumab infusion - empiric steroids - empiric anticoagulation - on empiric antibiotics - received convalescent plasma - trend ferritin, LDH, CRP - titrate FiO2 to keep SpO2 >90% - BiPAP as needed - DVT prophylaxis - continue ICU monitoring for tenuous respiratory status
[2020-01-31] MEDS: APIXABAN 5 MG TABLET PO SCH ×2 (11:57→21:34)
--- NOTE | 2020-01-31 12:48 | PN ---
Progress Note (short form) - Note Progress Note: afebrile more hypoxic yesterday afternoon, s/p tocilizumab now on NRB mask s/p convalescent plasma on 01/25 alert still with productive sputum Vital Signs Period Temp Pulse Resp BP Sys/Miner Pulse Ox Last 24 Hr 99 F-100.2 F 66-109 20-33 91-134/47-104 96-100 cor-rrr lungs decreased bs at bases abd soft,nt ext no edema CBC, BMP 01/31/20 06:25 01/31/20 06:25 Microbiology 01/27/20 09:30 Blood - Peripheral Venous Blood Culture - Preliminary NO GROWTH OBTAINED AFTER 96 HOURS, INCUBATION TO CONTINUE FOR 1 DAYS. 01/27/20 09:30 Blood - Peripheral Venous Blood Culture - Preliminary NO GROWTH OBTAINED AFTER 96 HOURS, INCUBATION TO CONTINUE FOR 1 DAYS. 01/25/20 16:29 Blood - Peripheral Venous Blood Culture - Final NO GROWTH AFTER 5 DAYS INCUBATION 01/25/20 16:29 Blood - Peripheral Venous Blood Culture - Final NO GROWTH AFTER 5 DAYS INCUBATION 01/27/20 14:15 Sputum - Expectorated Gram Stain - Final 01/27/20 14:15 Sputum - Expectorated Sputum Culture - Final Haemophilus Parainfluenzae Ii-beta lactamase negative 01/27/20 09:20 Urine - Urine Clean Catch Legionella Antigen - Final 01/27/20 09:20 Urine - Urine Clean Catch Streptococcus pneumoniae Antigen (M - Final head ct negative cxray unchanged a/p covid positive hypoxia/pneumonia hemophilus parainfluenza-switch to ceftriaxone s/p convalescent plasma s/p tocilimuzab -check quantiferon will follow
[2020-01-31] MEDS ORDERED: PIPERACILLIN/TAZOB 3.375 GM 3.375 GM in DEXTROSE 5%-WATER - 50 ML IVPB SCH (15:45)
[2020-01-31] MEDS: CEFTRIAXONE 2 GM in DEXTROSE 5%-WATER - 100 ML IVPB SCH (17:50)
[2020-01-31] MEDS: CHLORHEXIDINE GLUCONATE 4% CLEANSER FOR DECOLONIZATION TP SCH (21:28)
[2020-02-01] MEDS: methylPREDNISolone NA SUCC 125 MG/2 ML VIAL IVPUSH SCH ×4 (01:31→15:40)
[2020-02-01] MEDS: ALBUTEROL SO4 HFA INHALER IH PRN (01:33)
[2020-02-01] MEDS: INSULIN SLIDING SCALE (NOVOLOG) 1 VIAL SQ SCH ×4 (06:33→22:30)
[2020-02-01 08:13] LABS: BASO % 0.3 % (0-2.0); EOS % 0.1 % (0-4.5); HEMATOCRIT 40.4 % (35.4-49); HEMOGLOBIN 12.8 GM/dL (11.7-16.9); LYMPH % 21.9 % (8-40); MCH 23.6 pg (25.7-33.7); MCHC 31.8 g/dl (32.0-35.9); MEAN CELL VOLUME 74.2 fl (80-96); MEAN PLT VOLUME 8.3 fl (7.5-11.1); MONO % 5.1 % (3.8-10.2); NEUT % 72.6 % (42.8-82.8); PLATELET COUNT 294 K/MM3 (134-434); RBC 5.45 M/mm3 (4.00-5.60); RDW 15.6 % (11.9-15.9); WHITE BLOOD COUNT 3.3 K/mm3 (4.0-10.0)
[2020-02-01] MEDS ORDERED: PT OWN MED DRAWER 7, Y5N ONE ×2 (10:56→15:02)
[2020-02-01] MEDS: APIXABAN 5 MG TABLET PO SCH ×2 (10:57→22:30)
--- NOTE | 2020-02-01 11:09 | PN ---
Physical Exam: SUBJECTIVE: Pt on NRB and HFOT overnight with sats in 80s, was switched to BiPAP with improvement in sats OBJECTIVE: Vital Signs Period Temp Pulse Resp BP Sys/Miner Pulse Ox Last 24 Hr 98.2 F-99.1 F 62-79 24-27 122-139/66-90 98-100 exam per r and d lab technician Laboratory Results - last 24 hr 01/31/20 01/31/20 01/31/20 06:25 11:24 17:02 WBC RBC Hgb Hct MCV MCH MCHC RDW Plt Count MPV Absolute Neuts (auto) Neutrophils % Lymphocytes % Monocytes % Eosinophils % Basophils % Nucleated RBC % Sodium 136 Potassium 4.6 Chloride 97 L Carbon Dioxide 33 H Anion Gap 6 L BUN 11.9 Creatinine 1.0 Est GFR (CKD-EPI)AfAm 112.51 Est GFR (CKD-EPI)NonAf 97.08 POC Glucometer 169 313 Random Glucose 194 H Calcium 8.0 L Phosphorus 3.8 Magnesium 2.3 Ferritin 741.6 H Total Bilirubin 0.4 AST 39 H ALT 37 Alkaline Phosphatase 66 LD Total 530 H Creatine Kinase 309 H Creatine Kinase Index No Result Required. CK-MB (CK-2) < 1.0 Troponin I < 0.02 C-Reactive Protein 8.9 H B-Natriuretic Peptide < 5.0 L Total Protein 6.7 Albumin 2.5 L 01/31/20 02/01/20 02/01/20 21:58 06:17 06:50 WBC 3.3 L RBC 5.45 Hgb 12.8 Hct 40.4 MCV 74.2 L MCH 23.6 L MCHC 31.8 L RDW 15.6 Plt Count 294 MPV 8.3 Absolute Neuts (auto) 2.4 Neutrophils % 72.6 D Lymphocytes % 21.9 D Monocytes % 5.1 Eosinophils % 0.1 Basophils % 0.3 Nucleated RBC % 0 Sodium Potassium Chloride Carbon Dioxide Anion Gap BUN Creatinine Est GFR (CKD-EPI)AfAm Est GFR (CKD-EPI)NonAf POC Glucometer 359 281 Random Glucose Calcium Phosphorus Magnesium Ferritin Total Bilirubin AST ALT Alkaline Phosphatase LD Total Creatine Kinase Creatine Kinase Index CK-MB (CK-2) Troponin I C-Reactive Protein B-Natriuretic Peptide Total Protein Albumin Active Medications Generic Name Dose Route Start Last Admin Trade Name Freq PRN Reason Stop Dose Admin Acetaminophen 650 mg 01/26/20 23:02 01/30/20 14:00 Tylenol - PO 650 mg Q6H PRN Administration FEVER Albuterol Sulfate 1 puff 01/29/20 03:14 01/30/20 02:16 Ventolin Hfa Inhaler - IH 1 puff Q4H PRN Administration SHORT OF BREATH/WHEEZING Apixaban 5 mg 01/28/20 10:00 02/01/20 10:57 Eliquis - PO 5 mg BID SARAH Administration Chlorhexidine Gluconate 1 applic 01/25/20 22:00 01/31/20 21:28 Hibiclens For Decolonization - TP 1 applic HS SARAH Administration Clotrimazole 1 applic 02/01/20 10:00 Lotrimin 1% Cream - TP BID SARAH Diphenhydramine HCl 50 mg 01/30/20 22:00 Benadryl Injection - IVPUSH HS PRN INSOMNIA Guaifenesin 10 ml 01/29/20 03:14 01/29/20 22:28 Robitussin - PO 10 ml Q6H PRN Administration COUGH Ceftriaxone Sodium 2 gm/ 100 mls @ 200 mls/hr 01/31/20 16:00 01/31/20 17:50 Dextrose IVPB 200 mls/hr DAILY SARAH Administration Protocol Insulin Aspart 1 vial 01/26/20 11:00 02/01/20 06:33 Novolog Vial Sliding Scale - SQ 6 units ACHS SARAH Administration Protocol Methylprednisolone Sodium Succinate 125 mg 01/31/20 10:30 02/01/20 10:57 Solu-Medrol - IVPUSH 125 mg Q6H-IV SARAH Administration ASSESSMENT/PLAN: Pt is a 34 y/o male with HTN (not on meds) and newly diagnosed DM on admission, who presents with 3-4 days of increasing dyspnea and diarrhea. Two days ago he began having chest pain with coughing. 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 neuro: -?COVID encephalitis -some improvement in mental status, still lethargic -CT head negative cardio: -monitor BP, stable after tocolizumab -troponin, BNP negative pulm: #COVID -adjust between HFOT/NRB and BiPAP as needed to keep O2 >90 -CXR- improvement in b/l infiltrates -incentive spirometer -Legionella and step pneumo negative -sputum positive rare H. parainfluenzae endo: -A1C 10.5 -SSI -BGMs -f/u outpatient ID: -solu-medrol 125mg Q6H -s/p convalescent plasma 01/25 -s/p tocolizumab 01/29 -TB test pending -ID following DVT Ppx Eliquis 5mg BID FEN PO fluids monitor labs diabetic diet dispo: ICU monitoring FULL CODE Visit type - Emergency Visit Emergency Visit: Yes ED Registration Date: 01/25/20 Care time: The patient presented to the Emergency Department on the above date and was hospitalized for further evaluation of their emergent condition. - New Patient This patient is new to me today: No - Critical Care Critical Care patient: Yes Total Critical Care Time (in minutes): 35 Critical Care Statement: The care of this patient involved high complexity decision making to prevent further life threatening deterioration of the patient's condition and/or to evaluate & treat vital organ system(s) failure or risk of failure. ATTENDING PHYSICIAN STATEMENT I saw and evaluated the patient. I reviewed the resident's note and discussed the case with the resident. I agree with the resident's findings and plan as documented. SUBJECTIVE: OBJECTIVE: ASSESSMENT AND PLAN:
[2020-02-01 11:13] LABS: ALBUMIN 2.8 g/dl (3.4-5.0); BILIRUBIN,TOTAL 0.9 mg/dL (0.2-1); BLOOD UREA NITROGEN 17.1 mg/dL (7-18); CALCIUM 8.5 mg/dL (8.5-10.1); CREATININE 0.9 mg/dL (0.55-1.3); MAGNESIUM 2.5 mg/dL (1.8-2.4); PHOSPHOROUS 4.1 mg/dL (2.5-4.9); TOT PROT 7.4 g/dl (6.4-8.2)
--- NOTE | 2020-02-01 12:02 | PN ---
Teaching Attending Note Name of Resident: Bre Ramey ATTENDING PHYSICIAN STATEMENT I saw and evaluated the patient. I reviewed the resident's note and discussed the case with the resident. I agree with the resident's findings and plan as documented. PULMONARY/CCM SUBJECTIVE: Pt seen and examined in the ICU. Placed on BiPAP overnight for persistent hypoxia. More alert, awake today, transitioned to HFOT/NRB. No fevers recorded. OBJECTIVE: Vital Signs Period Temp Pulse Resp BP Sys/Miner Pulse Ox Last 24 Hr 98.2 F-99.2 F 62-107 20-27 122-139/66-90 98-100 Intake & Output 01/29/20 01/30/20 01/31/20 02/01/20 23:59 23:59 23:59 23:59 Intake Total 850 750 150 Output Total 380 184 4856 700 Balance -50 -400 -600 -550 Gen: NAD at rest Heart: RRR Lung: decreased breath sounds at the bases Abd: soft, nontender Ext: no edema CXR: improving bilateral infiltrates CBC, BMP 02/01/20 06:50 02/01/20 06:50 Laboratory Tests 02/01/20 06:50 Ferritin 963.4 H LD Total 591 H Active Medications Acetaminophen (Tylenol -) 650 mg PO Q6H PRN PRN Reason: FEVER Last Admin: 01/30/20 14:00 Dose: 650 mg Documented by: Albuterol Sulfate (Ventolin Hfa Inhaler -) 1 puff IH Q4H PRN PRN Reason: SHORT OF BREATH/WHEEZING Last Admin: 01/30/20 02:16 Dose: 1 puff Documented by: Apixaban (Eliquis -) 5 mg PO BID SARAH Last Admin: 02/01/20 10:57 Dose: 5 mg Documented by: Chlorhexidine Gluconate (Hibiclens For Decolonization -) 1 applic TP HS SARAH Last Admin: 01/31/20 21:28 Dose: 1 applic Documented by: Clotrimazole (Lotrimin 1% Cream -) 1 applic TP BID SARAH Diphenhydramine HCl (Benadryl Injection -) 50 mg IVPUSH HS PRN PRN Reason: INSOMNIA Guaifenesin (Robitussin -) 10 ml PO Q6H PRN PRN Reason: COUGH Last Admin: 01/29/20 22:28 Dose: 10 ml Documented by: Ceftriaxone Sodium 2 gm/ (Dextrose) 100 mls @ 200 mls/hr IVPB DAILY SARAH; Protocol Last Admin: 01/31/20 17:50 Dose: 200 mls/hr Documented by: Insulin Aspart (Novolog Vial Sliding Scale -) 1 vial SQ ACHS SARAH; Protocol Last Admin: 02/01/20 06:33 Dose: 6 units Documented by: Methylprednisolone Sodium Succinate (Solu-Medrol -) 125 mg IVPUSH Q6H-IV SARAH Last Admin: 02/01/20 10:57 Dose: 125 mg Documented by: ASSESSMENT AND PLAN: Acute Hypoxic Respiratory Failure COVID Pneumonia HTN DM - s/p tocilizumab infusion - empiric steroids - empiric anticoagulation - complete empiric antibiotics - received convalescent plasma - trend ferritin, LDH, CRP - titrate HFOT to keep SpO2 >90% - BiPAP as needed - DVT prophylaxis - continue ICU monitoring for tenuous respiratory status
--- NOTE | 2020-02-01 14:30 | PN ---
Progress Note (short form) - Note Progress Note: afebrile feels improved today, less sob still very fatigued on high flow oxygen Vital Signs Period Temp Pulse Resp BP Sys/Miner Pulse Ox Last 24 Hr 98.2 F-99.2 F 62-107 20-26 123-145/70-91 98-100 cor-rrr lungs decreased bs at bases abd soft,nt ext no head ct negative cxray unchanged a/p covid positive hypoxia/pneumonia hemophilus parainfluenza-switch to ceftriaxone s/p convalescent plasma s/p tocilimuzab -check quantiferon will follow
[2020-02-01] MEDS: CEFTRIAXONE 2 GM in DEXTROSE 5%-WATER - 100 ML IVPB SCH (15:21)
[2020-02-01] MEDS ORDERED: ACETAMINOPHEN 1000 MG/100 ML VIAL (NON FORMULARY) IVPB PRN (15:36)
[2020-02-01] MEDS: CLOTRIMAZOLE 1% CREAM 15 GM TUBE TP SCH (15:47)
[2020-02-01] MEDS: ACETAMINOPHEN 325 MG TABLET (FP) PO PRN (15:47)
[2020-02-01] MEDS: CHLORHEXIDINE GLUCONATE 4% CLEANSER FOR DECOLONIZATION TP SCH (22:30)
[2020-02-02] MEDS ORDERED: ALBUTEROL SO4 2.5/IPRATROPIUM 0.5 INH SOL 3 ML VIAL.NEB. NEB ONE (00:01)
[2020-02-02] MEDS ORDERED: ALPRAZolam 0.25 MG TABLET PO ONE (00:35)
[2020-02-02] MEDS: CLOTRIMAZOLE 1% CREAM 15 GM TUBE TP SCH ×3 (01:33→21:30)
[2020-02-02] MEDS: methylPREDNISolone NA SUCC 125 MG/2 ML VIAL IVPUSH SCH ×4 (03:30→21:30)
[2020-02-02 07:10] LABS: BASO % 0.2 % (0-2.0); HEMATOCRIT 41.1 % (35.4-49); HEMOGLOBIN 13.1 GM/dL (11.7-16.9); LYMPH % 10.8 % (8-40); MCH 23.4 pg (25.7-33.7); MCHC 31.7 g/dl (32.0-35.9); MEAN CELL VOLUME 73.9 fl (80-96); MEAN PLT VOLUME 8.2 fl (7.5-11.1); MONO % 4.2 % (3.8-10.2); NEUT % 84.8 % (42.8-82.8); PLATELET COUNT 353 K/MM3 (134-434); RBC 5.57 M/mm3 (4.00-5.60); RDW 15.5 % (11.9-15.9); WHITE BLOOD COUNT 8.4 K/mm3 (4.0-10.0)
[2020-02-02 07:49] LABS: ALBUMIN 2.7 g/dl (3.4-5.0); BILIRUBIN,TOTAL 0.5 mg/dL (0.2-1); CALCIUM 8.7 mg/dL (8.5-10.1); CREATININE 1.1 mg/dL (0.55-1.3); MAGNESIUM 2.5 mg/dL (1.8-2.4); PHOSPHOROUS 4.7 mg/dL (2.5-4.9); POTASSIUM 5.2 mmol/L (3.5-5.1); TOT PROT 7.1 g/dl (6.4-8.2)
[2020-02-02] MEDS ORDERED: PT OWN MED DRAWER 7, Y5N ONE (08:12)
[2020-02-02] MEDS: INSULIN SLIDING SCALE (NOVOLOG) 1 VIAL SQ SCH ×4 (08:20→21:30)
[2020-02-02] MEDS: APIXABAN 5 MG TABLET PO SCH ×3 (08:25→21:30)
[2020-02-02] MEDS ORDERED: DEXTROSE 5%-WATER 100 ML IVPB ONE (11:01)
[2020-02-02] MEDS: CEFTRIAXONE 2 GM in DEXTROSE 5%-WATER 100 ML IVPB SCH (11:02)
--- NOTE | 2020-02-02 12:09 | PN ---
Progress Note (short form) - Note Progress Note: afebrile reports improvement although he had a difficult night became hypoxic with movement now on NRB and comfortable sitting at the side of the bed Vital Signs Period Temp Pulse Resp BP Sys/Miner Pulse Ox Last 24 Hr 97.7 F-98.7 F 65-101 18-30 113-140/55-87 94-100 cor-rrr lungs decreased bs at bases abd soft,nt ext no edema CBC, BMP 02/02/20 06:45 02/02/20 06:45 Microbiology 01/27/20 09:30 Blood - Peripheral Venous Blood Culture - Final NO GROWTH AFTER 5 DAYS INCUBATION 01/27/20 09:30 Blood - Peripheral Venous Blood Culture - Final NO GROWTH AFTER 5 DAYS INCUBATION 01/25/20 16:29 Blood - Peripheral Venous Blood Culture - Final NO GROWTH AFTER 5 DAYS INCUBATION 01/25/20 16:29 Blood - Peripheral Venous Blood Culture - Final NO GROWTH AFTER 5 DAYS INCUBATION 01/27/20 14:15 Sputum - Expectorated Gram Stain - Final 01/27/20 14:15 Sputum - Expectorated Sputum Culture - Final Haemophilus Parainfluenzae Ii 01/27/20 09:20 Urine - Urine Clean Catch Legionella Antigen - Final 01/27/20 09:20 Urine - Urine Clean Catch Streptococcus pneumoniae Antigen (M - Final a/p covid positive hypoxia/pneumonia hemophilus parainfluenza-continue ceftriaxone s/p convalescent plasma s/p tocilimuzab -check quantiferon clinically improved
--- NOTE | 2020-02-02 13:30 | PN ---
Physical Exam: SUBJECTIVE: Pt on bipap overnight, switched to NRB and HFOT OBJECTIVE: Vital Signs Period Temp Pulse Resp BP Sys/Miner Pulse Ox Last 24 Hr 97.7 F-98.8 F 65-101 18-30 113-140/55-87 94-100 exam per real estate office supervisor Laboratory Results - last 24 hr 02/01/20 02/01/20 02/02/20 06:50 19:19 06:45 WBC RBC Hgb Hct MCV MCH MCHC RDW Plt Count MPV Absolute Neuts (auto) Neutrophils % Lymphocytes % Monocytes % Eosinophils % Basophils % Nucleated RBC % Sodium 134 L Potassium 5.2 H Chloride 97 L Carbon Dioxide 32 Anion Gap 5 L BUN 21.0 H Creatinine 1.1 Est GFR (CKD-EPI)AfAm 100.27 Est GFR (CKD-EPI)NonAf 86.51 POC Glucometer 309 Random Glucose 336 H Calcium 8.7 Phosphorus 4.7 Magnesium 2.5 H Ferritin 1082.0 H Total Bilirubin 0.5 AST 54 H ALT 76 H Alkaline Phosphatase 71 LD Total 570 H C-Reactive Protein 5.0 H 2.4 H Total Protein 7.1 Albumin 2.7 L 02/02/20 02/02/20 06:45 11:05 WBC 8.4 RBC 5.57 Hgb 13.1 Hct 41.1 MCV 73.9 L MCH 23.4 L MCHC 31.7 L RDW 15.5 Plt Count 353 D MPV 8.2 Absolute Neuts (auto) 7.1 Neutrophils % 84.8 H Lymphocytes % 10.8 D Monocytes % 4.2 Eosinophils % 0.0 D Basophils % 0.2 Nucleated RBC % 0 Sodium Potassium Chloride Carbon Dioxide Anion Gap BUN Creatinine Est GFR (CKD-EPI)AfAm Est GFR (CKD-EPI)NonAf POC Glucometer 396 Random Glucose Calcium Phosphorus Magnesium Ferritin Total Bilirubin AST ALT Alkaline Phosphatase LD Total C-Reactive Protein Total Protein Albumin Active Medications Generic Name Dose Route Start Last Admin Trade Name Freq PRN Reason Stop Dose Admin Acetaminophen 650 mg 01/26/20 23:02 02/01/20 15:47 Tylenol - PO 650 mg Q6H PRN Administration FEVER Albuterol Sulfate 1 puff 01/29/20 03:14 02/01/20 01:33 Ventolin Hfa Inhaler - IH 1 puff Q4H PRN Administration SHORT OF BREATH/WHEEZING Apixaban 5 mg 01/28/20 10:00 02/02/20 08:25 Eliquis - PO 5 mg BID SARAH Administration Chlorhexidine Gluconate 1 applic 01/25/20 22:00 02/01/20 22:30 Hibiclens For Decolonization - TP 1 applic HS SARAH Administration Clotrimazole 1 applic 02/01/20 10:00 02/02/20 01:33 Lotrimin 1% Cream - TP Not Given BID SARAH Diphenhydramine HCl 50 mg 01/30/20 22:00 Benadryl Injection - IVPUSH HS PRN INSOMNIA Guaifenesin 10 ml 01/29/20 03:14 01/29/20 22:28 Robitussin - PO 10 ml Q6H PRN Administration COUGH Ceftriaxone Sodium 2 gm/ 100 mls @ 200 mls/hr 02/02/20 08:20 02/02/20 11:02 Dextrose IVPB 200 mls/hr DAILY SARAH Administration Protocol Insulin Aspart 1 vial 01/26/20 11:00 02/02/20 08:20 Novolog Vial Sliding Scale - SQ 8 units ACHS SARAH Administration Protocol Methylprednisolone Sodium Succinate 125 mg 01/31/20 10:30 02/02/20 08:20 Solu-Medrol - IVPUSH 125 mg Q6H-IV SARAH Administration ASSESSMENT/PLAN: Pt is a 34 y/o male with HTN (not on meds) and newly diagnosed DM on admission, who presents with 3-4 days of increasing dyspnea and diarrhea. Two days ago he began having chest pain with coughing. 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 neuro: -?COVID encephalitis -some improvement in mental status, still lethargic -CT head negative cardio: -monitor BP, stable after tocolizumab -troponin, BNP negative pulm: #COVID -adjust between HFOT/NRB and BiPAP as needed to keep O2 >90 -CXR- improvement in b/l infiltrates -incentive spirometer -Legionella and step pneumo negative -sputum positive rare H. parainfluenzae endo: -A1C 10.5 -SSI -BGMs -f/u outpatient ID: -solu-medrol 125mg Q6H -s/p convalescent plasma 01/25 -s/p tocolizumab 01/29 -TB test pending -ID following DVT Ppx Eliquis 5mg BID FEN PO fluids monitor labs diabetic diet dispo: ICU monitoring FULL CODE Visit type - Emergency Visit Emergency Visit: Yes ED Registration Date: 01/25/20 Care time: The patient presented to the Emergency Department on the above date and was hospitalized for further evaluation of their emergent condition. - New Patient This patient is new to me today: No - Critical Care Critical Care patient: Yes Total Critical Care Time (in minutes): 35 Critical Care Statement: The care of this patient involved high complexity decision making to prevent further life threatening deterioration of the patient's condition and/or to evaluate & treat vital organ system(s) failure or risk of failure. ATTENDING PHYSICIAN STATEMENT I saw and evaluated the patient. I reviewed the resident's note and discussed the case with the resident. I agree with the resident's findings and plan as documented. SUBJECTIVE: OBJECTIVE: ASSESSMENT AND PLAN:
--- NOTE | 2020-02-02 14:17 | PN ---
Teaching Attending Note Name of Resident: Bre Ramey ATTENDING PHYSICIAN STATEMENT I saw and evaluated the patient. I reviewed the resident's note and discussed the case with the resident. I agree with the resident's findings and plan as documented. PULMONARY/CCM SUBJECTIVE: Pt seen and examined in the ICU. Used BiPAP overnight, now on HFOT/NRB. Mental status continues to improve. No fevers recorded. OBJECTIVE: Vital Signs Period Temp Pulse Resp BP Sys/Miner Pulse Ox Last 24 Hr 97.7 F-98.7 F 65-101 18-30 113-140/55-87 94-97 Intake & Output 01/30/20 01/31/20 02/01/20 02/02/20 23:59 23:59 23:59 23:59 Intake Total 750 1650 Output Total 400 1350 2300 Balance -400 -600 -650 Gen: NAD at rest Heart: RRR Lung: decreased breath sounds at the bases Abd: soft, nontender Ext: no edema CXR: improving bilateral infiltrates CBC, BMP 02/02/20 06:45 02/02/20 06:45 Laboratory Tests 02/02/20 06:45 Ferritin 1082.0 H LD Total 570 H C-Reactive Protein 2.4 H Active Medications Acetaminophen (Tylenol -) 650 mg PO Q6H PRN PRN Reason: FEVER Last Admin: 02/01/20 15:47 Dose: 650 mg Documented by: Albuterol Sulfate (Ventolin Hfa Inhaler -) 1 puff IH Q4H PRN PRN Reason: SHORT OF BREATH/WHEEZING Last Admin: 02/01/20 01:33 Dose: 1 puff Documented by: Apixaban (Eliquis -) 5 mg PO BID [facility] Last Admin: 02/02/20 13:59 Dose: Not Given Documented by: Chlorhexidine Gluconate (Hibiclens For Decolonization -) 1 applic TP HS [facility] Last Admin: 02/01/20 22:30 Dose: 1 applic Documented by: Clotrimazole (Lotrimin 1% Cream -) 1 applic TP BID [facility] Last Admin: 02/02/20 11:00 Dose: 1 applic Documented by: Diphenhydramine HCl (Benadryl Injection -) 50 mg IVPUSH HS PRN PRN Reason: INSOMNIA Guaifenesin (Robitussin -) 10 ml PO Q6H PRN PRN Reason: COUGH Last Admin: 01/29/20 22:28 Dose: 10 ml Documented by: Ceftriaxone Sodium 2 gm/ (Dextrose) 100 mls @ 200 mls/hr IVPB DAILY [facility]; Protocol Last Admin: 02/02/20 11:02 Dose: 200 mls/hr Documented by: Insulin Aspart (Novolog Vial Sliding Scale -) 1 vial SQ ACHS SARAH; Protocol Last Admin: 02/02/20 13:00 Dose: 10 units Documented by: Methylprednisolone Sodium Succinate (Solu-Medrol -) 125 mg IVPUSH Q6H-IV SARAH Last Admin: 02/02/20 08:20 Dose: 125 mg Documented by: ASSESSMENT AND PLAN: Acute Hypoxic Respiratory Failure COVID Pneumonia HTN DM - s/p tocilizumab infusion - empiric steroids - empiric anticoagulation - complete empiric antibiotics - received convalescent plasma - trend ferritin, LDH, CRP - titrate HFOT to keep SpO2 >90% - BiPAP as needed - DVT prophylaxis - continue ICU monitoring for tenuous respiratory status
[2020-02-02] MEDS: CHLORHEXIDINE GLUCONATE 4% CLEANSER FOR DECOLONIZATION TP SCH (21:30)
[2020-02-02] MEDS: ALBUTEROL SO4 HFA INHALER IH PRN (21:30)
[2020-02-02] MEDS: guaiFENesin 200 MG/10 ML 10 ML UNIT-DOSE CUPS PO PRN (21:30)
[2020-02-03] MEDS: ACETAMINOPHEN 325 MG TABLET (FP) PO PRN ×2 (00:13→21:56)
[2020-02-03] MEDS: methylPREDNISolone NA SUCC 125 MG/2 ML VIAL IVPUSH SCH ×2 (03:00→10:16)
[2020-02-03 07:35] LABS: BASO % 0.3 % (0-2.0); HEMOGLOBIN 12.7 GM/dL (11.7-16.9); LYMPH % 10.2 % (8-40); MCH 23.5 pg (25.7-33.7); MCHC 31.8 g/dl (32.0-35.9); MEAN CELL VOLUME 73.9 fl (80-96); MEAN PLT VOLUME 8.3 fl (7.5-11.1); NEUT % 84.5 % (42.8-82.8); PLATELET COUNT 330 K/MM3 (134-434); RBC 5.41 M/mm3 (4.00-5.60); RDW 15.4 % (11.9-15.9); WHITE BLOOD COUNT 9.7 K/mm3 (4.0-10.0)
[2020-02-03 08:24] LABS: ALBUMIN 2.8 g/dl (3.4-5.0); BILIRUBIN,TOTAL 0.8 mg/dL (0.2-1); BLOOD UREA NITROGEN 23.2 mg/dL (7-18); CALCIUM 8.7 mg/dL (8.5-10.1); MAGNESIUM 2.6 mg/dL (1.8-2.4); PHOSPHOROUS 4.9 mg/dL (2.5-4.9); POTASSIUM 5.2 mmol/L (3.5-5.1)
--- NOTE | 2020-02-03 08:59 | PN ---
Physical Exam: SUBJECTIVE: Pt reports slow improvement in breathing, on BiPAP at night 16/400/10/90, urine output 1300cc OBJECTIVE: Vital Signs Period Temp Pulse Resp BP Sys/Miner Pulse Ox Last 24 Hr 98.1 F-98.4 F 54-95 19-27 113-140/66-81 90-98 currently on HFOT exam per automatic wheel line operator Laboratory Results - last 24 hr 02/02/20 02/02/20 02/03/20 11:05 17:31 07:10 WBC 9.7 RBC 5.41 Hgb 12.7 Hct 40.0 MCV 73.9 L MCH 23.5 L MCHC 31.8 L RDW 15.4 Plt Count 330 MPV 8.3 Absolute Neuts (auto) 8.2 H Neutrophils % 84.5 H Lymphocytes % 10.2 Monocytes % 5.0 Eosinophils % 0.0 Basophils % 0.3 Nucleated RBC % 0 Sodium Potassium Chloride Carbon Dioxide Anion Gap BUN Creatinine Est GFR (CKD-EPI)AfAm Est GFR (CKD-EPI)NonAf POC Glucometer 396 330 Random Glucose Calcium Phosphorus Magnesium Ferritin Total Bilirubin AST ALT Alkaline Phosphatase LD Total C-Reactive Protein Total Protein Albumin 02/03/20 02/03/20 07:10 07:10 WBC RBC Hgb Hct MCV MCH MCHC RDW Plt Count MPV Absolute Neuts (auto) Neutrophils % Lymphocytes % Monocytes % Eosinophils % Basophils % Nucleated RBC % Sodium 135 L Potassium 5.2 H Chloride 97 L Carbon Dioxide 33 H Anion Gap 5 L BUN 23.2 H Creatinine 1.0 Est GFR (CKD-EPI)AfAm 112.51 Est GFR (CKD-EPI)NonAf 97.08 POC Glucometer Random Glucose 360 H Calcium 8.7 Phosphorus 4.9 Magnesium 2.6 H Ferritin 873.7 H Total Bilirubin 0.8 AST 22 ALT 61 Alkaline Phosphatase 78 LD Total 504 H C-Reactive Protein 1.3 H Total Protein 7.0 Albumin 2.8 L Active Medications Generic Name Dose Route Start Last Admin Trade Name Freq PRN Reason Stop Dose Admin Acetaminophen 650 mg 01/26/20 23:02 02/03/20 00:13 Tylenol - PO 650 mg Q6H PRN Administration FEVER Albuterol Sulfate 1 puff 01/29/20 03:14 02/02/20 21:30 Ventolin Hfa Inhaler - IH 1 puff Q4H PRN Administration SHORT OF BREATH/WHEEZING Apixaban 5 mg 01/28/20 10:00 02/02/20 21:30 Eliquis - PO 5 mg BID SARAH Administration Chlorhexidine Gluconate 1 applic 01/25/20 22:00 02/02/20 21:30 Hibiclens For Decolonization - TP 1 applic HS SARAH Administration Clotrimazole 1 applic 02/01/20 10:00 02/02/20 21:30 Lotrimin 1% Cream - TP Not Given BID SARAH Diphenhydramine HCl 50 mg 01/30/20 22:00 Benadryl Injection - IVPUSH HS PRN INSOMNIA Guaifenesin 10 ml 01/29/20 03:14 02/02/20 21:30 Robitussin - PO 10 ml Q6H PRN Administration COUGH Ceftriaxone Sodium 2 gm/ 100 mls @ 200 mls/hr 02/02/20 08:20 02/02/20 11:02 Dextrose IVPB 200 mls/hr DAILY SARAH Administration Protocol Insulin Aspart 1 vial 01/26/20 11:00 02/02/20 21:30 Novolog Vial Sliding Scale - SQ 6 units ACHS SARAH Administration Protocol Methylprednisolone Sodium Succinate 125 mg 01/31/20 10:30 02/03/20 03:00 Solu-Medrol - IVPUSH 125 mg Q6H-IV SARAH Administration ASSESSMENT/PLAN: Pt is a 34 y/o male with HTN (not on meds) and newly diagnosed DM on admission, who presents with 3-4 days of increasing dyspnea and diarrhea. Two days ago he began having chest pain with coughing. 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 neuro/psych: -?COVID encephalitis -steady improvement in mental status -CT head negative -lexapro 10mg daily cardio: -monitor BP, stable after tocolizumab -troponin, BNP negative pulm: #COVID -adjust between HFOT/NRB and BiPAP as needed to keep O2 >90 -CXR- stable -incentive spirometer -Legionella and step pneumo negative -sputum positive rare H. parainfluenzae endo: -A1C 10.5 -SSI -BGMs -consider levemir if persistent hyperglycemia after decrease in steroids -f/u outpatient ID: -solu-medrol 60mg BID -s/p convalescent plasma 01/25 -s/p tocolizumab 01/29 -vitamin C -zinc -TB test negative -ID following DVT Ppx Eliquis 5mg BID FEN PO fluids monitor labs diabetic diet dispo: ICU monitoring FULL CODE Visit type - Emergency Visit Emergency Visit: Yes ED Registration Date: 01/25/20 Care time: The patient presented to the Emergency Department on the above date and was hospitalized for further evaluation of their emergent condition. - New Patient This patient is new to me today: No - Critical Care Critical Care patient: Yes Total Critical Care Time (in minutes): 35 Critical Care Statement: The care of this patient involved high complexity decision making to prevent further life threatening deterioration of the patient's condition and/or to evaluate & treat vital organ system(s) failure or risk of failure. ATTENDING PHYSICIAN STATEMENT I saw and evaluated the patient. I reviewed the resident's note and discussed the case with the resident. I agree with the resident's findings and plan as documented. SUBJECTIVE: OBJECTIVE: ASSESSMENT AND PLAN:
[2020-02-03] MEDS: CLOTRIMAZOLE 1% CREAM 15 GM TUBE TP SCH ×2 (10:00→21:58)
[2020-02-03] MEDS: APIXABAN 5 MG TABLET PO SCH ×2 (10:00→21:57)
[2020-02-03] MEDS: CEFTRIAXONE 2 GM in DEXTROSE 5%-WATER 100 ML IVPB SCH (10:00)
[2020-02-03] MEDS ORDERED: DEXTROSE 5%-WATER 100 ML IVPB ONE (10:10)
[2020-02-03] MEDS ORDERED: methylPREDNISolone NA SUCC 125 MG/2 ML VIAL ONE (10:12)
[2020-02-03] MEDS: methylPREDNISolone NA SUCC 40 MG/1 ML VIAL IVPUSH SCH ×2 (11:13→21:58)
--- NOTE | 2020-02-03 11:49 | PN ---
Teaching Attending Note Name of Resident: Bre Ramey ATTENDING PHYSICIAN STATEMENT I saw and evaluated the patient. I reviewed the resident's note and discussed the case with the resident. I agree with the resident's findings and plan as documented. PULMONARY/CCM SUBJECTIVE: Pt seen and examined in the ICU. Remains on HFOT/NRB. Mental status continues to improve. States breathing is improving. No fevers recorded. Still desaturates w ith minimal exertion. OBJECTIVE: Vital Signs Period Temp Pulse Resp BP Sys/Miner Pulse Ox Last 24 Hr 98.1 F-98.4 F 54-95 19-27 113-140/66-81 90-98 Intake & Output 01/31/20 02/01/20 02/02/20 02/03/20 23:59 23:59 23:59 23:59 Intake Total 750 1650 250 Output Total 1350 2300 1300 600 Balance -600 -650 -1300 -350 Gen: NAD at rest Heart: RRR Lung: decreased breath sounds at the bases Abd: soft, nontender Ext: no edema CXR: improving bilateral infiltrates CBC, BMP 02/03/20 07:10 02/03/20 07:10 Laboratory Tests 02/03/20 02/03/20 07:10 07:10 Ferritin 873.7 H LD Total 504 H C-Reactive Protein 1.3 H Active Medications Acetaminophen (Tylenol -) 650 mg PO Q6H PRN PRN Reason: FEVER Last Admin: 02/03/20 00:13 Dose: 650 mg Documented by: Albuterol Sulfate (Ventolin Hfa Inhaler -) 1 puff IH Q4H PRN PRN Reason: SHORT OF BREATH/WHEEZING Last Admin: 02/02/20 21:30 Dose: 1 puff Documented by: Apixaban (Eliquis -) 5 mg PO BID SARAH Last Admin: 02/03/20 10:00 Dose: 5 mg Documented by: Chlorhexidine Gluconate (Hibiclens For Decolonization -) 1 applic TP HS [facility] Last Admin: 02/02/20 21:30 Dose: 1 applic Documented by: Clotrimazole (Lotrimin 1% Cream -) 1 applic TP BID [facility] Last Admin: 02/03/20 10:00 Dose: 1 applic Documented by: Diphenhydramine HCl (Benadryl Injection -) 50 mg IVPUSH HS PRN PRN Reason: INSOMNIA Guaifenesin (Robitussin -) 10 ml PO Q6H PRN PRN Reason: COUGH Last Admin: 02/02/20 21:30 Dose: 10 ml Documented by: Ceftriaxone Sodium 2 gm/ (Dextrose) 100 mls @ 200 mls/hr IVPB DAILY [facility]; Protocol Last Admin: 02/03/20 10:00 Dose: 200 mls/hr Documented by: Insulin Aspart (Novolog Vial Sliding Scale -) 1 vial SQ ACHS [facility]; Protocol Last Admin: 02/02/20 21:30 Dose: 6 units Documented by: Methylprednisolone Sodium Succinate (Solu-Medrol -) 60 mg IVPUSH BID [facility] Last Admin: 02/03/20 11:13 Dose: Not Given Documented by: ASSESSMENT AND PLAN: Acute Hypoxic Respiratory Failure COVID Pneumonia HTN DM - s/p tocilizumab infusion - empiric steroids - empiric anticoagulation - complete empiric antibiotics - received convalescent plasma - trend ferritin, LDH, CRP - titrate HFOT to keep SpO2 >90% - BiPAP as needed - DVT prophylaxis - continue ICU monitoring for tenuous respiratory status
[2020-02-03] MEDS: INSULIN SLIDING SCALE (NOVOLOG) 1 VIAL SQ SCH ×3 (12:00→22:49)
[2020-02-03] MEDS: ESCITALOPRAM OXALATE 10 MG TABLET PO SCH (16:42)
[2020-02-03] MEDS: ASPIRIN 81 MG CHEWABLE TABLETS PO SCH (16:42)
[2020-02-03] MEDS: CHLORHEXIDINE GLUCONATE 4% CLEANSER FOR DECOLONIZATION TP SCH (21:57)
[2020-02-03] MEDS: ZINC SULFATE 220 MG CAPSULE (FP) PO SCH (21:58)
[2020-02-03] MEDS: ASCORBIC ACID 500 MG TABLET (FP) PO SCH (21:59)
[2020-02-04] MEDS ORDERED: ACETAMINOPHEN INJECTION 100 ML IVPB ONE (03:42)
[2020-02-04 07:56] LABS: BASO % 0.2 % (0-2.0); EOS % 0.9 % (0-4.5); HEMATOCRIT 39.2 % (35.4-49); HEMOGLOBIN 12.6 GM/dL (11.7-16.9); LYMPH % 29.9 % (8-40); MCH 23.7 pg (25.7-33.7); MCHC 32.1 g/dl (32.0-35.9); MEAN CELL VOLUME 73.9 fl (80-96); MEAN PLT VOLUME 8.4 fl (7.5-11.1); MONO % 2.5 % (3.8-10.2); NEUT % 66.5 % (42.8-82.8); PLATELET COUNT 281 K/MM3 (134-434); RDW 15.4 % (11.9-15.9)
[2020-02-04 08:39] LABS: ALBUMIN 2.6 g/dl (3.4-5.0); BILIRUBIN,TOTAL 0.5 mg/dL (0.2-1); BLOOD UREA NITROGEN 22.8 mg/dL (7-18); CREATININE 1.1 mg/dL (0.55-1.3); MAGNESIUM 2.3 mg/dL (1.8-2.4); PHOSPHOROUS 3.2 mg/dL (2.5-4.9); POTASSIUM 4.9 mmol/L (3.5-5.1); TOT PROT 6.4 g/dl (6.4-8.2)
[2020-02-04] MEDS ORDERED: DEXTROSE 5%-WATER 100 ML IVPB ONE (08:48)
[2020-02-04] MEDS: CEFTRIAXONE 2 GM in DEXTROSE 5%-WATER 100 ML IVPB SCH (10:45)
[2020-02-04] MEDS: ZINC SULFATE 220 MG CAPSULE (FP) PO SCH ×2 (10:45→21:00)
[2020-02-04] MEDS: APIXABAN 5 MG TABLET PO SCH ×2 (10:45→23:17)
[2020-02-04] MEDS: ESCITALOPRAM OXALATE 10 MG TABLET PO SCH (10:45)
[2020-02-04] MEDS: ASPIRIN 81 MG CHEWABLE TABLETS PO SCH (10:45)
[2020-02-04] MEDS: ASCORBIC ACID 500 MG TABLET (FP) PO SCH ×2 (10:45→23:18)
[2020-02-04] MEDS: methylPREDNISolone NA SUCC 40 MG/1 ML VIAL IVPUSH SCH ×2 (10:45→23:17)
[2020-02-04] MEDS: CLOTRIMAZOLE 1% CREAM 15 GM TUBE TP SCH ×2 (10:45→23:24)
--- NOTE | 2020-02-04 12:14 | PN ---
Progress Note (short form) - Note Progress Note: Seen and examined in the ICU Remains on HFNC 100% 30lpm plus NRB at times Using NIPPV overnight, reports slept well afebrile, BP stable OOB to chair this AM Active Medications Acetaminophen (Tylenol -) 650 mg PO Q6H PRN PRN Reason: FEVER Last Admin: 02/03/20 21:56 Dose: 650 mg Documented by: Albuterol Sulfate (Ventolin Hfa Inhaler -) 1 puff IH Q4H PRN PRN Reason: SHORT OF BREATH/WHEEZING Last Admin: 02/02/20 21:30 Dose: 1 puff Documented by: Apixaban (Eliquis -) 5 mg PO BID COUNT [facility]CLUD[facility] Last Admin: 02/04/20 10:45 Dose: 5 mg Documented by: Ascorbic Acid (Vitamin C -) 500 mg PO BID [facility] Last Admin: 02/04/20 10:45 Dose: 500 mg Documented by: Aspirin (Asa -) 81 mg PO DAILY [facility] Last Admin: 02/04/20 10:45 Dose: 81 mg Documented by: Chlorhexidine Gluconate (Hibiclens For Decolonization -) 1 applic TP HS [facility] Last Admin: 02/03/20 21:57 Dose: 1 applic Documented by: Clotrimazole (Lotrimin 1% Cream -) 1 applic TP BID [facility] Last Admin: 02/04/20 10:45 Dose: 1 applic Documented by: Diphenhydramine HCl (Benadryl Injection -) 50 mg IVPUSH HS PRN PRN Reason: INSOMNIA Escitalopram Oxalate (Lexapro -) 10 mg PO DAILY [facility] Last Admin: 02/04/20 10:45 Dose: 10 mg Documented by: Guaifenesin (Robitussin -) 10 ml PO Q6H PRN PRN Reason: COUGH Last Admin: 02/02/20 21:30 Dose: 10 ml Documented by: Ceftriaxone Sodium 2 gm/ (Dextrose) 100 mls @ 200 mls/hr IVPB DAILY [facility]; Protocol Last Admin: 02/04/20 10:45 Dose: 200 mls/hr Documented by: Insulin Aspart (Novolog Vial Sliding Scale -) 1 vial SQ ACHS [facility]; Protocol Last Admin: 02/03/20 22:49 Dose: 4 units Documented by: Methylprednisolone Sodium Succinate (Solu-Medrol -) 60 mg IVPUSH BID [facility] Last Admin: 02/04/20 10:45 Dose: 60 mg Documented by: Zinc Sulfate (Orazinc -) 220 mg PO BID [facility] Last Admin: 02/04/20 10:45 Dose: 220 mg Documented by: Vital Signs Period Temp Pulse Resp BP Sys/Miner Pulse Ox Last 24 Hr 98.2 F-99 F 70-95 13-32 104-158/56-90 95-100 Intake & Output 02/01/20 02/02/20 02/03/20 02/04/20 23:59 23:59 23:59 23:59 Intake Total 1650 650 350 Output Total 2300 1300 1200 550 Balance -650 -1300 -550 -200 Exam: awake and alert w/ mod SOB on NRB/HFNC sittingin chair HEENT: PERRL CV: RRR Pulm: diminished Abd: SNTND +BS Ext: no edema CBC, BMP 02/04/20 06:25 02/04/20 06:25 CXR: unchanged ASSESSMENT AND PLAN: Acute Hypoxic Respiratory Failure COVID Pneumonia HTN DM - s/p tocilizumab infusion - empiric steroids - empiric anticoagulation - complete empiric antibiotics - received convalescent plasma - trend ferritin, LDH, CRP - titrate HFOT to keep SpO2 >90% - BiPAP as needed and overnight - DVT prophylaxis - continue ICU monitoring for tenuous respiratory status Boerem ACNP Pulm/CCM CCT: 40m
[2020-02-04] MEDS: INSULIN SLIDING SCALE (NOVOLOG) 1 VIAL SQ SCH ×4 (17:09→23:17)
--- NOTE | 2020-02-04 18:03 | PN ---
Progress Note, Physician Chief Complaint: OOB IN CHAIR NO COMPLAINTS BREATHING NON LABORED AFEBRILE WBC WNL - Current Medication List Current Medications: Active Medications Acetaminophen (Tylenol -) 650 mg PO Q6H PRN PRN Reason: FEVER Last Admin: 02/03/20 21:56 Dose: 650 mg Documented by: Albuterol Sulfate (Ventolin Hfa Inhaler -) 1 puff IH Q4H PRN PRN Reason: SHORT OF BREATH/WHEEZING Last Admin: 02/02/20 21:30 Dose: 1 puff Documented by: Apixaban (Eliquis -) 5 mg PO BID [facility] Last Admin: 02/04/20 10:45 Dose: 5 mg Documented by: Ascorbic Acid (Vitamin C -) 500 mg PO BID [facility] Last Admin: 02/04/20 10:45 Dose: 500 mg Documented by: Aspirin (Asa -) 81 mg PO DAILY [facility] Last Admin: 02/04/20 10:45 Dose: 81 mg Documented by: Chlorhexidine Gluconate (Hibiclens For Decolonization -) 1 applic TP HS [facility] Last Admin: 02/03/20 21:57 Dose: 1 applic Documented by: Clotrimazole (Lotrimin 1% Cream -) 1 applic TP BID [facility] Last Admin: 02/04/20 10:45 Dose: 1 applic Documented by: Diphenhydramine HCl (Benadryl Injection -) 50 mg IVPUSH HS PRN PRN Reason: INSOMNIA Guaifenesin (Robitussin -) 10 ml PO Q6H PRN PRN Reason: COUGH Last Admin: 02/02/20 21:30 Dose: 10 ml Documented by: Ceftriaxone Sodium 2 gm/ (Dextrose) 100 mls @ 200 mls/hr IVPB DAILY [facility]; Protocol Last Admin: 02/04/20 10:45 Dose: 200 mls/hr Documented by: Insulin Aspart (Novolog Vial Sliding Scale -) 1 vial SQ ACHS [facility]; Protocol Last Admin: 02/04/20 17:09 Dose: 8 units Documented by: Methylprednisolone Sodium Succinate (Solu-Medrol -) 60 mg IVPUSH BID [facility] Last Admin: 02/04/20 10:45 Dose: 60 mg Documented by: Zinc Sulfate (Orazinc -) 220 mg PO BID [facility] Last Admin: 02/04/20 10:45 Dose: 220 mg Documented by: - Objective Vital Signs: Vital Signs Temperature 99 F 02/04/20 04:00 Pulse Rate 73 02/04/20 17:00 Respiratory Rate 26 H 02/04/20 17:00 Blood Pressure 126/77 02/04/20 17:00 O2 Sat by Pulse Oximetry (%) 95 02/04/20 14:12 Constitutional: Yes: Obese Eyes: Yes: Conjunctiva Clear Cardiovascular: Yes: Regular Rate and Rhythm, S1, S2 Respiratory: Yes: Diminished Gastrointestinal: Yes: Normal Bowel Sounds, Soft. No: Tenderness Labs: CBC, BMP 02/04/20 06:25 02/04/20 06:25 INR, PTT INR 1.00 (0.83-1.09) 01/25/20 16:29 Assessment/Plan COVID-19+ S/P TOCILIMUZAB, PLASMA PNEUMONITIS + SPUTUM C/S H. PARAINFLUENZA CONTINUE CEFTRIAXONE QUANTIFERON (-)
[2020-02-04] MEDS ORDERED: ONDANSETRON 4 MG/2 ML VIAL IVPUSH ONE (18:39)
[2020-02-04] MEDS ORDERED: ONDANSETRON 4 MG/2 ML VIAL ONE (18:39)
[2020-02-04] MEDS ORDERED: PT OWN MED DRAWER 7, Y5N ONE (22:53)
[2020-02-04] MEDS: CHLORHEXIDINE GLUCONATE 4% CLEANSER FOR DECOLONIZATION TP SCH (23:24)
[2020-02-04] MEDS: ONDANSETRON 4 MG/2 ML VIAL IVPUSH PRN (23:39)
[2020-02-05] MEDS: INSULIN SLIDING SCALE (NOVOLOG) 1 VIAL SQ SCH ×4 (06:39→21:58)
[2020-02-05 07:06] LABS: HEMATOCRIT 40.6 % (35.4-49); HEMOGLOBIN 13.2 GM/dL (11.7-16.9); MCH 23.9 pg (25.7-33.7); MCHC 32.4 g/dl (32.0-35.9); MEAN CELL VOLUME 73.7 fl (80-96); MEAN PLT VOLUME 8.4 fl (7.5-11.1); PLATELET COUNT 259 K/MM3 (134-434); RBC 5.51 M/mm3 (4.00-5.60); RDW 15.5 % (11.9-15.9)
[2020-02-05 07:55] LABS: BLOOD UREA NITROGEN 18.4 mg/dL (7-18); CALCIUM 8.6 mg/dL (8.5-10.1); CREATININE 0.9 mg/dL (0.55-1.3); MAGNESIUM 2.4 mg/dL (1.8-2.4); PHOSPHOROUS 3.8 mg/dL (2.5-4.9)
--- NOTE | 2020-02-05 10:23 | PN ---
Progress Note (short form) - Note Progress Note: Seen and examined in the ICU States that his breathing feel slightly better OOB to chair on HFNC 100% Flow: 40lpm Used NIPPV overnight afebrile Active Medications Acetaminophen (Tylenol -) 650 mg PO Q6H PRN PRN Reason: FEVER Last Admin: 02/03/20 21:56 Dose: 650 mg Documented by: Albuterol Sulfate (Ventolin Hfa Inhaler -) 1 puff IH Q4H PRN PRN Reason: SHORT OF BREATH/WHEEZING Last Admin: 02/02/20 21:30 Dose: 1 puff Documented by: Apixaban (Eliquis -) 5 mg PO BID [facility] Last Admin: 02/04/20 23:17 Dose: 5 mg Documented by: Ascorbic Acid (Vitamin C -) 500 mg PO BID [facility] Last Admin: 02/04/20 23:18 Dose: 500 mg Documented by: Aspirin (Asa -) 81 mg PO DAILY [facility] Last Admin: 02/04/20 10:45 Dose: 81 mg Documented by: Chlorhexidine Gluconate (Hibiclens For Decolonization -) 1 applic TP HS [facility] Last Admin: 02/04/20 23:24 Dose: Not Given Documented by: Clotrimazole (Lotrimin 1% Cream -) 1 applic TP BID [facility] Last Admin: 02/04/20 23:24 Dose: 1 applic Documented by: Diphenhydramine HCl (Benadryl Injection -) 50 mg IVPUSH HS PRN PRN Reason: INSOMNIA Guaifenesin (Robitussin -) 10 ml PO Q6H PRN PRN Reason: COUGH Last Admin: 02/02/20 21:30 Dose: 10 ml Documented by: Ceftriaxone Sodium 2 gm/ (Dextrose) 100 mls @ 200 mls/hr IVPB DAILY [facility]; Protocol Last Admin: 02/04/20 10:45 Dose: 200 mls/hr Documented by: Insulin Aspart (Novolog Vial Sliding Scale -) 1 vial SQ ACHS [facility]; Protocol Last Admin: 02/05/20 06:39 Dose: 8 units Documented by: Methylprednisolone Sodium Succinate (Solu-Medrol -) 60 mg IVPUSH BID [facility] Last Admin: 02/04/20 23:17 Dose: 60 mg Documented by: Ondansetron HCl (Zofran Injection) 4 mg IVPUSH Q6H PRN PRN Reason: NAUSEA Last Admin: 02/04/20 23:39 Dose: 4 mg Documented by: Zinc Sulfate (Orazinc -) 220 mg PO BID [facility] Last Admin: 02/04/20 21:00 Dose: 220 mg Documented by: Vital Signs Period Temp Pulse Resp BP Sys/Miner Pulse Ox Last 24 Hr 96.8 F-98.3 F 64-76 14-27 120-137/76-86 91-95 Intake & Output 02/02/20 02/03/20 02/04/20 02/05/20 23:59 23:59 23:59 23:59 Intake Total 650 750 Output Total 1300 1200 2300 500 Balance -1300 -550 -1550 -500 Exam: Awake, alert and cooperative HEENT: PERRL Pulm: diminished CV: RRR, no m/r/g Abd: obese, SNTND, +Bs Ext: WWP, trace edema CBC, BMP 02/05/20 06:00 02/05/20 06:00 No CXR this AM ASSESSMENT AND PLAN: Acute Hypoxic Respiratory Failure COVID Pneumonia HTN DM - s/p tocilizumab infusion - empiric steroids, wean to 40 BID today - empiric anticoagulation - complete empiric antibiotics per ID - received convalescent plasma - trend ferritin, LDH, CRP - titrate HFOT to keep SpO2 >90% - BiPAP as needed and overnight - DVT prophylaxis - continue ICU monitoring for tenuous respiratory status Boerem ACNP Pulm/CCM CCT: 40m
[2020-02-05] MEDS: CEFTRIAXONE 2 GM in DEXTROSE 5%-WATER 100 ML IVPB SCH (10:30)
[2020-02-05] MEDS: CLOTRIMAZOLE 1% CREAM 15 GM TUBE TP SCH ×2 (10:30→21:48)
[2020-02-05] MEDS: ASCORBIC ACID 500 MG TABLET (FP) PO SCH ×2 (10:30→21:47)
[2020-02-05] MEDS: APIXABAN 5 MG TABLET PO SCH ×2 (10:30→21:48)
[2020-02-05] MEDS: ZINC SULFATE 220 MG CAPSULE (FP) PO SCH ×2 (10:30→21:47)
[2020-02-05] MEDS: ASPIRIN 81 MG CHEWABLE TABLETS PO SCH (10:30)
[2020-02-05] MEDS ORDERED: DEXTROSE 5%-WATER 100 ML IVPB ONE (11:04)
[2020-02-05] MEDS: methylPREDNISolone NA SUCC 40 MG/1 ML VIAL IVPUSH SCH ×2 (14:59→21:48)
[2020-02-05] MEDS: ONDANSETRON 4 MG/2 ML VIAL IVPUSH PRN (16:00)
[2020-02-05] MEDS: CHLORHEXIDINE GLUCONATE 4% CLEANSER FOR DECOLONIZATION TP SCH (21:30)
--- NOTE | 2020-02-05 22:18 | PN ---
Progress Note, Physician Chief Complaint: SUPINE IN BED LETHARGIC OFFERS NO COMPLAINTS BREATHING NON LABORED AFEBRILE WBC WNL - Current Medication List Current Medications: Active Medications Acetaminophen (Tylenol -) 650 mg PO Q6H PRN PRN Reason: FEVER Last Admin: 02/03/20 21:56 Dose: 650 mg Documented by: Albuterol Sulfate (Ventolin Hfa Inhaler -) 1 puff IH Q4H PRN PRN Reason: SHORT OF BREATH/WHEEZING Last Admin: 02/02/20 21:30 Dose: 1 puff Documented by: Apixaban (Eliquis -) 5 mg PO BID [facility] Last Admin: 02/05/20 21:48 Dose: 5 mg Documented by: Ascorbic Acid (Vitamin C -) 500 mg PO BID [facility] Last Admin: 02/05/20 21:47 Dose: 500 mg Documented by: Aspirin (Asa -) 81 mg PO DAILY [facility] Last Admin: 02/05/20 10:30 Dose: 81 mg Documented by: Chlorhexidine Gluconate (Hibiclens For Decolonization -) 1 applic TP HS [facility] Last Admin: 02/04/20 23:24 Dose: Not Given Documented by: Clotrimazole (Lotrimin 1% Cream -) 1 applic TP BID [facility] Last Admin: 02/05/20 21:48 Dose: 1 applic Documented by: Diphenhydramine HCl (Benadryl Injection -) 50 mg IVPUSH HS PRN PRN Reason: INSOMNIA Guaifenesin (Robitussin -) 10 ml PO Q6H PRN PRN Reason: COUGH Last Admin: 02/02/20 21:30 Dose: 10 ml Documented by: Ceftriaxone Sodium 2 gm/ (Dextrose) 100 mls @ 200 mls/hr IVPB DAILY [facility]; Protocol Last Admin: 02/05/20 10:30 Dose: 200 mls/hr Documented by: Insulin Aspart (Novolog Vial Sliding Scale -) 1 vial SQ ACHS [facility]; Protocol Last Admin: 02/05/20 21:58 Dose: 8 units Documented by: Methylprednisolone Sodium Succinate (Solu-Medrol -) 40 mg IVPUSH BID [facility] Last Admin: 02/05/20 21:48 Dose: 40 mg Documented by: Ondansetron HCl (Zofran Injection) 4 mg IVPUSH Q6H PRN PRN Reason: NAUSEA Last Admin: 02/05/20 16:00 Dose: 4 mg Documented by: Zinc Sulfate (Orazinc -) 220 mg PO BID [facility] Last Admin: 02/05/20 21:47 Dose: 220 mg Documented by: - Objective Vital Signs: Vital Signs Temperature 98.2 F 02/05/20 16:00 Pulse Rate 81 02/05/20 16:00 Respiratory Rate 28 H 02/05/20 16:00 Blood Pressure 107/53 L 02/05/20 16:00 O2 Sat by Pulse Oximetry (%) 92 L 02/05/20 20:46 Constitutional: Yes: No Distress, Obese Cardiovascular: Yes: Regular Rate and Rhythm, S1, S2 Respiratory: Yes: Diminished Gastrointestinal: Yes: Normal Bowel Sounds, Soft, Abdomen, Obese Labs: CBC, BMP 02/05/20 06:00 02/05/20 06:00 INR, PTT INR 1.00 (0.83-1.09) 01/25/20 16:29 Assessment/Plan COVID-19+ S/P TOCILIMUZAB, PLASMA PNEUMONITIS + SPUTUM C/S H. PARAINFLUENZA CONTINUE CEFTRIAXONE QUANTIFERON (-)
[2020-02-06 06:41] LABS: ARTERIAL BLOOD GAS BASE EXCESS 6.8 mmol/L (-2-2); ARTERIAL BLOOD GAS PO2 80.1 mmHg (80-100); ARTERIAL BLOOD GAS pH 7.43 (7.35-7.45)
[2020-02-06 06:42] LABS: ALLENS TEST POSITIVE
[2020-02-06] MEDS: INSULIN SLIDING SCALE (NOVOLOG) 1 VIAL SQ SCH ×3 (06:44→21:31)
[2020-02-06 07:21] LABS: ALBUMIN 2.8 g/dl (3.4-5.0); BILIRUBIN,TOTAL 0.9 mg/dL (0.2-1); BLOOD UREA NITROGEN 19.4 mg/dL (7-18); CALCIUM 8.4 mg/dL (8.5-10.1); CREATININE 0.9 mg/dL (0.55-1.3); MAGNESIUM 2.3 mg/dL (1.8-2.4); PHOSPHOROUS 3.6 mg/dL (2.5-4.9); POTASSIUM 4.5 mmol/L (3.5-5.1); TOT PROT 6.6 g/dl (6.4-8.2)
[2020-02-06] MEDS ORDERED: DEXTROSE 5%-WATER 100 ML IVPB ONE (09:40)
--- NOTE | 2020-02-06 10:28 | PN ---
Physical Exam: SUBJECTIVE: no acute events overnight, on BiPAP at night 70%, urine output 1700cc, reports breathing feels the same over the weekend OBJECTIVE: Vital Signs Period Temp Pulse Resp BP Sys/Miner Pulse Ox Last 24 Hr 98.2 F 70-82 27-30 103-121/50-81 92-93 exam per [employer] operator Laboratory Results - last 24 hr 02/05/20 02/05/20 02/06/20 17:45 21:56 05:47 Anticoagulation Therapy No Result Required. Puncture Site Right radial ABG pH 7.43 ABG pCO2 at Pt Temp 50.0 H ABG pO2 at Pt Temp 80.1 ABG HCO3 32.4 H ABG O2 Sat (Measured) 96.0 ABG O2 Content No Result Required. ABG Base Excess 6.8 H Rehan Test Positive Patient On Oxygen Yes O2 Delivery Device Bipap Oxygen Flow Rate 70% Vent Mode Avaps Vent Rate 16 Mechanical Rate Bipap PEEP 10.0 Pressure Support Vent 400 Sodium Potassium Chloride Carbon Dioxide Anion Gap BUN Creatinine Est GFR (CKD-EPI)AfAm Est GFR (CKD-EPI)NonAf POC Glucometer 274 350 Random Glucose Calcium Phosphorus Magnesium Total Bilirubin AST ALT Alkaline Phosphatase Total Protein Albumin 02/06/20 02/06/20 06:20 06:27 Anticoagulation Therapy Puncture Site ABG pH ABG pCO2 at Pt Temp ABG pO2 at Pt Temp ABG HCO3 ABG O2 Sat (Measured) ABG O2 Content ABG Base Excess Rehan Test Patient On Oxygen O2 Delivery Device Oxygen Flow Rate Vent Mode Vent Rate Mechanical Rate PEEP Pressure Support Vent Sodium 134 L Potassium 4.5 Chloride 96 L Carbon Dioxide 33 H Anion Gap 4 L BUN 19.4 H Creatinine 0.9 Est GFR (CKD-EPI)AfAm 127.80 Est GFR (CKD-EPI)NonAf 110.27 POC Glucometer 239 Random Glucose 269 H Calcium 8.4 L Phosphorus 3.6 Magnesium 2.3 Total Bilirubin 0.9 AST 18 ALT 41 Alkaline Phosphatase 87 Total Protein 6.6 Albumin 2.8 L Active Medications Generic Name Dose Route Start Last Admin Trade Name Freq PRN Reason Stop Dose Admin Acetaminophen 650 mg 01/26/20 23:02 02/03/20 21:56 Tylenol - PO 650 mg Q6H PRN Administration FEVER Albuterol Sulfate 1 puff 01/29/20 03:14 02/02/20 21:30 Ventolin Hfa Inhaler - IH 1 puff Q4H PRN Administration SHORT OF BREATH/WHEEZING Apixaban 5 mg 01/28/20 10:00 02/05/20 21:48 Eliquis - PO 5 mg BID [facility] Administration Ascorbic Acid 500 mg 02/03/20 22:00 02/05/20 21:47 Vitamin C - PO 500 mg BID [facility] Administration Aspirin 81 mg 02/03/20 16:15 02/05/20 10:30 Asa - PO 81 mg DAILY [facility] Administration Chlorhexidine Gluconate 1 applic 01/25/20 22:00 02/05/20 21:30 Hibiclens For Decolonization - TP 1 applic HS [facility] Administration Clotrimazole 1 applic 02/01/20 10:00 02/05/20 21:48 Lotrimin 1% Cream - TP 1 applic BID [facility] Administration Diphenhydramine HCl 50 mg 01/30/20 22:00 Benadryl Injection - IVPUSH HS PRN INSOMNIA Guaifenesin 10 ml 01/29/20 03:14 02/02/20 21:30 Robitussin - PO 10 ml Q6H PRN Administration COUGH Insulin Aspart 1 vial 01/26/20 11:00 02/06/20 06:44 Novolog Vial Sliding Scale - SQ 6 units ACHS [facility] Administration Protocol Methylprednisolone Sodium Succinate 40 mg 02/05/20 10:23 02/05/20 21:48 Solu-Medrol - IVPUSH 40 mg BID [facility] Administration Ondansetron HCl 4 mg 02/04/20 23:07 02/05/20 16:00 Zofran Injection IVPUSH 4 mg Q6H PRN Administration NAUSEA Zinc Sulfate 220 mg 02/03/20 22:00 02/05/20 21:47 Orazinc - PO 220 mg BID [facility] Administration ASSESSMENT/PLAN: Pt is a 34 y/o male with HTN (not on meds) and newly diagnosed DM on admission, who presents with 3-4 days of increasing dyspnea and diarrhea. Two days ago he began having chest pain with coughing. 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 neuro/psych: -?COVID encephalitis -steady improvement in mental status -CT head negative -lexapro 10mg daily cardio: -monitor BP, stable after tocolizumab -troponin, BNP negative pulm: #COVID -adjust between HFOT/NRB and BiPAP (usually night) as needed to keep O2 >90 -CXR- slight improvement, sofia right lung -incentive spirometer -Legionella and step pneumo negative -sputum positive rare H. parainfluenzae endo: -A1C 10.5 -SSI -BGMs -f/u outpatient ID: -solu-medrol 40mg BID -s/p convalescent plasma 01/25 -s/p tocolizumab 01/29 -vitamin C -zinc -TB test negative -ID following DVT Ppx Eliquis 5mg BID FEN PO fluids monitor labs diabetic diet dispo: ICU monitoring FULL CODE Visit type - Emergency Visit Emergency Visit: Yes ED Registration Date: 01/25/20 Care time: The patient presented to the Emergency Department on the above date and was hospitalized for further evaluation of their emergent condition. - New Patient This patient is new to me today: No - Critical Care Critical Care patient: Yes Total Critical Care Time (in minutes): 35 Critical Care Statement: The care of this patient involved high complexity decision making to prevent further life threatening deterioration of the patient's condition and/or to evaluate & treat vital organ system(s) failure or risk of failure. ATTENDING PHYSICIAN STATEMENT I saw and evaluated the patient. I reviewed the resident's note and discussed the case with the resident. I agree with the resident's findings and plan as documented. SUBJECTIVE: OBJECTIVE: ASSESSMENT AND PLAN:
[2020-02-06] MEDS: methylPREDNISolone NA SUCC 40 MG/1 ML VIAL IVPUSH SCH ×2 (10:49→21:15)
[2020-02-06] MEDS: APIXABAN 5 MG TABLET PO SCH ×2 (10:49→21:15)
[2020-02-06] MEDS: ASCORBIC ACID 500 MG TABLET (FP) PO SCH ×2 (10:49→21:15)
[2020-02-06] MEDS: ASPIRIN 81 MG CHEWABLE TABLETS PO SCH (10:49)
[2020-02-06] MEDS: ZINC SULFATE 220 MG CAPSULE (FP) PO SCH ×2 (10:49→21:15)
[2020-02-06] MEDS: CLOTRIMAZOLE 1% CREAM 15 GM TUBE TP SCH ×2 (10:50→21:15)
--- NOTE | 2020-02-06 12:22 | PN ---
Teaching Attending Note Name of Resident: Bre Ramey ATTENDING PHYSICIAN STATEMENT I saw and evaluated the patient. I reviewed the resident's note and discussed the case with the resident. I agree with the resident's findings and plan as documented. PULMONARY/CCM SUBJECTIVE: Pt seen and examined in the ICU. Saturating well on NRB, still desaturates quickly without oxygen. Mental status continues to improve. States breathing is improving. No fevers recorded. OBJECTIVE: Vital Signs Period Temp Pulse Resp BP Sys/Miner Pulse Ox Last 24 Hr 98.2 F 70-82 27-30 103-121/50-81 92-96 Intake & Output 02/03/20 02/04/20 02/05/20 02/06/20 23:59 23:59 23:59 23:59 Intake Total 650 750 Output Total 1200 2300 1700 Balance -550 -1550 -1700 Gen: NAD at rest Heart: RRR Lung: decreased breath sounds at the bases Abd: soft, nontender Ext: no edema CXR: improving bilateral infiltrates CBC, BMP 02/05/20 06:00 02/06/20 06:20 Active Medications Acetaminophen (Tylenol -) 650 mg PO Q6H PRN PRN Reason: FEVER Last Admin: 02/03/20 21:56 Dose: 650 mg Documented by: Albuterol Sulfate (Ventolin Hfa Inhaler -) 1 puff IH Q4H PRN PRN Reason: SHORT OF BREATH/WHEEZING Last Admin: 02/02/20 21:30 Dose: 1 puff Documented by: Apixaban (Eliquis -) 5 mg PO BID [facility] Last Admin: 02/06/20 10:49 Dose: 5 mg Documented by: Ascorbic Acid (Vitamin C -) 500 mg PO BID [facility] Last Admin: 02/06/20 10:49 Dose: 500 mg Documented by: Aspirin (Asa -) 81 mg PO DAILY [facility] Last Admin: 02/06/20 10:49 Dose: 81 mg Documented by: Chlorhexidine Gluconate (Hibiclens For Decolonization -) 1 applic TP HS [facility] Last Admin: 02/05/20 21:30 Dose: 1 applic Documented by: Clotrimazole (Lotrimin 1% Cream -) 1 applic TP BID [facility] Last Admin: 02/06/20 10:50 Dose: 1 applic Documented by: Diphenhydramine HCl (Benadryl Injection -) 50 mg IVPUSH HS PRN PRN Reason: INSOMNIA Guaifenesin (Robitussin -) 10 ml PO Q6H PRN PRN Reason: COUGH Last Admin: 02/02/20 21:30 Dose: 10 ml Documented by: Insulin Aspart (Novolog Vial Sliding Scale -) [address] [facility]; Protocol Last Admin: 02/06/20 06:44 Dose: 6 units Documented by: Methylprednisolone Sodium Succinate (Solu-Medrol -) 40 mg IVPUSH BID [facility] Last Admin: 02/06/20 10:49 Dose: 40 mg Documented by: Ondansetron HCl (Zofran Injection) 4 mg IVPUSH Q6H PRN PRN Reason: NAUSEA Last Admin: 02/05/20 16:00 Dose: 4 mg Documented by: Zinc Sulfate (Orazinc -) 220 mg PO BID [facility] Last Admin: 02/06/20 10:49 Dose: 220 mg Documented by: ASSESSMENT AND PLAN: Acute Hypoxic Respiratory Failure COVID Pneumonia HTN DM - s/p tocilizumab infusion - empiric steroids - empiric anticoagulation - complete empiric antibiotics - received convalescent plasma - trend ferritin, LDH, CRP - titrate O2 to keep SpO2 >90% - BiPAP as needed - DVT prophylaxis - continue ICU monitoring for tenuous respiratory status
--- NOTE | 2020-02-06 13:17 | PN ---
Progress Note (short form) - Note Progress Note: reamins on NRB mask breathing about the same, harsh cough persists alert Vital Signs Period Temp Pulse Resp BP Sys/Miner Pulse Ox Last 24 Hr 98.2 F 70-82 27-30 103-121/50-81 92-96 cor-rrr lungs bibasilar crackles abd soft,nt ext no edema CBC, BMP 02/05/20 06:00 02/06/20 06:20 Microbiology 01/27/20 09:30 Blood - Peripheral Venous Blood Culture - Final NO GROWTH AFTER 5 DAYS INCUBATION 01/27/20 09:30 Blood - Peripheral Venous Blood Culture - Final NO GROWTH AFTER 5 DAYS INCUBATION 01/25/20 16:29 Blood - Peripheral Venous Blood Culture - Final NO GROWTH AFTER 5 DAYS INCUBATION 01/25/20 16:29 Blood - Peripheral Venous Blood Culture - Final NO GROWTH AFTER 5 DAYS INCUBATION 01/27/20 14:15 Sputum - Expectorated Gram Stain - Final 01/27/20 14:15 Sputum - Expectorated Sputum Culture - Final Haemophilus Parainfluenzae Ii 01/27/20 09:20 Urine - Urine Clean Catch Legionella Antigen - Final 01/27/20 09:20 Urine - Urine Clean Catch Streptococcus pneumoniae Antigen (M - Final quant gold negative a/p fever-resolved recent diagnosis covid 19 positive hemophilus parainfluenza +sputum culture-s/p 10 days of antibioitics obesity- suspected osas HTN hypoxemic respiratory failure- persists s/p convalescent plasma s/p tocilizumab Problem List - Problems (1) Acute hypoxemic respiratory failure Code(s): J96.01 - ACUTE RESPIRATORY FAILURE WITH HYPOXIA (2) COVID-19 Code(s): U07.1 - COVID POSITIVE (3) HTN (hypertension) Code(s): I10 - ESSENTIAL (PRIMARY) HYPERTENSION (4) Obesity Code(s): E66.9 - OBESITY, UNSPECIFIED (5) REYNALDO (obstructive sleep apnea) Code(s): G47.33 - OBSTRUCTIVE SLEEP APNEA (ADULT) (PEDIATRIC)
[2020-02-06] MEDS: CHLORHEXIDINE GLUCONATE 4% CLEANSER FOR DECOLONIZATION TP SCH (21:31)
[2020-02-07] MEDS: INSULIN SLIDING SCALE (NOVOLOG) 1 VIAL SQ SCH ×4 (06:00→21:06)
[2020-02-07 06:49] LABS: BASO % 0.3 % (0-2.0); EOS % 0.2 % (0-4.5); HEMATOCRIT 40.7 % (35.4-49); HEMOGLOBIN 13.1 GM/dL (11.7-16.9); LYMPH % 10.6 % (8-40); MCH 23.8 pg (25.7-33.7); MCHC 32.2 g/dl (32.0-35.9); MEAN CELL VOLUME 73.8 fl (80-96); MEAN PLT VOLUME 8.7 fl (7.5-11.1); MONO % 1.7 % (3.8-10.2); NEUT % 87.2 % (42.8-82.8); PLATELET COUNT 284 K/MM3 (134-434); RBC 5.52 M/mm3 (4.00-5.60); RDW 15.2 % (11.9-15.9); WHITE BLOOD COUNT 10.9 K/mm3 (4.0-10.0)
[2020-02-07 07:19] LABS: BILIRUBIN,TOTAL 0.8 mg/dL (0.2-1); BLOOD UREA NITROGEN 20.4 mg/dL (7-18); CREATININE 0.9 mg/dL (0.55-1.3); MAGNESIUM 2.1 mg/dL (1.8-2.4); PHOSPHOROUS 4.1 mg/dL (2.5-4.9); POTASSIUM 4.8 mmol/L (3.5-5.1); TOT PROT 6.6 g/dl (6.4-8.2)
[2020-02-07] MEDS: ASPIRIN 81 MG CHEWABLE TABLETS PO SCH (09:15)
[2020-02-07] MEDS: APIXABAN 5 MG TABLET PO SCH ×2 (09:16→21:05)
[2020-02-07] MEDS: ASCORBIC ACID 500 MG TABLET (FP) PO SCH ×2 (09:16→21:04)
[2020-02-07] MEDS: methylPREDNISolone NA SUCC 40 MG/1 ML VIAL IVPUSH SCH ×2 (09:16→21:05)
[2020-02-07] MEDS: ZINC SULFATE 220 MG CAPSULE (FP) PO SCH ×2 (09:16→21:05)
[2020-02-07] MEDS: INSULIN (LEVEMIR) 100 UNITS/ML UNITS SQ SCH (09:21)
[2020-02-07] MEDS: CLOTRIMAZOLE 1% CREAM 15 GM TUBE TP SCH ×2 (10:00→21:05)
--- NOTE | 2020-02-07 11:02 | PN ---
Physical Exam: SUBJECTIVE: no acute events overnight, on BiPAP 70% overnight OBJECTIVE: Vital Signs Period Temp Pulse Resp BP Sys/Miner Pulse Ox Last 24 Hr 64-84 26-30 111/52 84-96 exam per angle furnaceman Laboratory Results - last 24 hr 02/06/20 02/06/20 02/06/20 12:09 16:52 21:20 WBC RBC Hgb Hct MCV MCH MCHC RDW Plt Count MPV Absolute Neuts (auto) Neutrophils % Lymphocytes % Monocytes % Eosinophils % Basophils % Nucleated RBC % Sodium Potassium Chloride Carbon Dioxide Anion Gap BUN Creatinine Est GFR (CKD-EPI)AfAm Est GFR (CKD-EPI)NonAf POC Glucometer 269 335 229 Random Glucose Calcium Phosphorus Magnesium Ferritin Total Bilirubin AST ALT Alkaline Phosphatase LD Total C-Reactive Protein Total Protein Albumin 02/07/20 02/07/20 02/07/20 05:45 05:45 05:48 WBC 10.9 H RBC 5.52 Hgb 13.1 Hct 40.7 MCV 73.8 L MCH 23.8 L MCHC 32.2 RDW 15.2 Plt Count 284 MPV 8.7 Absolute Neuts (auto) 9.5 H Neutrophils % 87.2 H D Lymphocytes % 10.6 D Monocytes % 1.7 L Eosinophils % 0.2 Basophils % 0.3 Nucleated RBC % 0 Sodium 133 L Potassium 4.8 Chloride 96 L Carbon Dioxide 31 Anion Gap 6 L BUN 20.4 H Creatinine 0.9 Est GFR (CKD-EPI)AfAm 127.80 Est GFR (CKD-EPI)NonAf 110.27 POC Glucometer 279 Random Glucose 287 H Calcium 9.0 Phosphorus 4.1 Magnesium 2.1 Ferritin 803.0 H Total Bilirubin 0.8 AST 20 ALT 39 Alkaline Phosphatase 92 LD Total 598 H C-Reactive Protein 0.6 H Total Protein 6.6 Albumin 3.0 L Active Medications Generic Name Dose Route Start Last Admin Trade Name Freq PRN Reason Stop Dose Admin Acetaminophen 650 mg 01/26/20 23:02 02/03/20 21:56 Tylenol - PO 650 mg Q6H PRN Administration FEVER Albuterol Sulfate 1 puff 01/29/20 03:14 02/02/20 21:30 Ventolin Hfa Inhaler - IH 1 puff Q4H PRN Administration SHORT OF BREATH/WHEEZING Apixaban 5 mg 01/28/20 10:00 02/07/20 09:16 Eliquis - PO 5 mg BID SARAH Administration Ascorbic Acid 500 mg 02/03/20 22:00 02/07/20 09:16 Vitamin C - PO 500 mg BID SARAH Administration Aspirin 81 mg 02/03/20 16:15 02/07/20 09:15 Asa - PO 81 mg DAILY SARAH Administration Chlorhexidine Gluconate 1 applic 01/25/20 22:00 02/06/20 21:31 Hibiclens For Decolonization - TP 1 applic HS SARAH Administration Clotrimazole 1 applic 02/01/20 10:00 02/06/20 21:15 Lotrimin 1% Cream - TP 1 applic BID SARAH Administration Diphenhydramine HCl 50 mg 01/30/20 22:00 Benadryl Injection - IVPUSH HS PRN INSOMNIA Guaifenesin 10 ml 01/29/20 03:14 02/02/20 21:30 Robitussin - PO 10 ml Q6H PRN Administration COUGH Insulin Aspart 1 vial 01/26/20 11:00 02/07/20 06:00 Novolog Vial Sliding Scale - SQ 6 units ACHS SARAH Administration Protocol Insulin Detemir 10 units 02/07/20 08:05 02/07/20 09:21 Levemir Vial SQ 10 units AM SARAH Administration Methylprednisolone Sodium Succinate 40 mg 02/05/20 10:23 02/07/20 09:16 Solu-Medrol - IVPUSH 40 mg BID SARAH Administration Ondansetron HCl 4 mg 02/04/20 23:07 02/05/20 16:00 Zofran Injection IVPUSH 4 mg Q6H PRN Administration NAUSEA Zinc Sulfate 220 mg 02/03/20 22:00 02/07/20 09:16 Orazinc - PO 220 mg BID SARAH Administration ASSESSMENT/PLAN: Pt is a 34 y/o male with HTN (not on meds) and newly diagnosed DM on admission, who presents with 3-4 days of increasing dyspnea and diarrhea. Two days ago he began having chest pain with coughing. 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 neuro/psych: -?COVID encephalitis, improved -CT head negative -lexapro 10mg daily cardio: -monitor BP, stable after tocolizumab -troponin, BNP negative pulm: #COVID -adjust between HFOT/NRB and BiPAP (night) as needed to keep O2 >90 -CXR- worsening right lung infiltrate -incentive spirometer -Legionella and step pneumo negative -sputum positive rare H. parainfluenzae endo: -A1C 10.5 -SSI -BGMs -start levemir 10U -f/u outpatient ID: -solu-medrol 40mg BID -s/p convalescent plasma 01/25 -s/p tocolizumab 01/29 -vitamin C -zinc -TB test negative -ID following DVT Ppx Eliquis 5mg BID FEN PO fluids monitor labs diabetic diet dispo: ICU monitoring FULL CODE Visit type - Emergency Visit Emergency Visit: Yes ED Registration Date: 01/25/20 Care time: The patient presented to the Emergency Department on the above date and was hospitalized for further evaluation of their emergent condition. - New Patient This patient is new to me today: No - Critical Care Critical Care patient: Yes Total Critical Care Time (in minutes): 35 Critical Care Statement: The care of this patient involved high complexity decision making to prevent further life threatening deterioration of the patient's condition and/or to evaluate & treat vital organ system(s) failure or risk of failure. ATTENDING PHYSICIAN STATEMENT I saw and evaluated the patient. I reviewed the resident's note and discussed the case with the resident. I agree with the resident's findings and plan as documented. SUBJECTIVE: OBJECTIVE: ASSESSMENT AND PLAN:
--- NOTE | 2020-02-07 11:51 | PN ---
Teaching Attending Note Name of Resident: Bre Ramey ATTENDING PHYSICIAN STATEMENT I saw and evaluated the patient. I reviewed the resident's note and discussed the case with the resident. I agree with the resident's findings and plan as documented. PULMONARY/CCM SUBJECTIVE: Pt seen and examined in the ICU. On HFOT 90% FiO2, still desaturates quickly without oxygen. States breathing is slightly improved. No fevers recorded. OBJECTIVE: Vital Signs Period Temp Pulse Resp BP Sys/Miner Pulse Ox Last 24 Hr 97.2 F 64-84 26-30 111-117/52-56 84-96 Intake & Output 02/04/20 02/05/20 02/06/20 02/07/20 23:59 23:59 23:59 23:59 Intake Total 750 300 200 Output Total 2300 1700 600 400 Balance -1550 -1700 -300 -200 Gen: NAD at rest Heart: RRR Lung: decreased breath sounds at the bases Abd: soft, nontender Ext: no edema CXR: improving bilateral infiltrates CBC, BMP 02/07/20 05:45 02/07/20 05:45 Laboratory Tests 02/07/20 05:45 Ferritin 803.0 H LD Total 598 H C-Reactive Protein 0.6 H Active Medications Acetaminophen (Tylenol -) 650 mg PO Q6H PRN PRN Reason: FEVER Last Admin: 02/03/20 21:56 Dose: 650 mg Documented by: Albuterol Sulfate (Ventolin Hfa Inhaler -) 1 puff IH Q4H PRN PRN Reason: SHORT OF BREATH/WHEEZING Last Admin: 02/02/20 21:30 Dose: 1 puff Documented by: Apixaban (Eliquis -) 5 mg PO BID [facility] Last Admin: 02/07/20 09:16 Dose: 5 mg Documented by: Ascorbic Acid (Vitamin C -) 500 mg PO BID [facility] Last Admin: 02/07/20 09:16 Dose: 500 mg Documented by: Aspirin (Asa -) 81 mg PO DAILY [facility] Last Admin: 02/07/20 09:15 Dose: 81 mg Documented by: Chlorhexidine Gluconate (Hibiclens For Decolonization -) 1 applic TP HS [facility] Last Admin: 02/06/20 21:31 Dose: 1 applic Documented by: Clotrimazole (Lotrimin 1% Cream -) 1 applic TP BID [facility] Last Admin: 02/06/20 21:15 Dose: 1 applic Documented by: Diphenhydramine HCl (Benadryl Injection -) 50 mg IVPUSH HS PRN PRN Reason: INSOMNIA Guaifenesin (Robitussin -) 10 ml PO Q6H PRN PRN Reason: COUGH Last Admin: 02/02/20 21:30 Dose: 10 ml Documented by: Insulin Aspart (Novolog Vial Sliding Scale -) 1 vial SQ ACHS [facility]; Protocol Last Admin: 02/07/20 11:40 Dose: 6 units Documented by: Insulin Detemir (Levemir Vial) 10 units SQ AM [facility] Last Admin: 02/07/20 09:21 Dose: 10 units Documented by: Methylprednisolone Sodium Succinate (Solu-Medrol -) 40 mg IVPUSH BID [facility] Last Admin: 02/07/20 09:16 Dose: 40 mg Documented by: Ondansetron HCl (Zofran Injection) 4 mg IVPUSH Q6H PRN PRN Reason: NAUSEA Last Admin: 02/05/20 16:00 Dose: 4 mg Documented by: Zinc Sulfate (Orazinc -) 220 mg PO BID [facility] Last Admin: 02/07/20 09:16 Dose: 220 mg Documented by: ASSESSMENT AND PLAN: Acute Hypoxic Respiratory Failure COVID Pneumonia HTN DM - s/p tocilizumab infusion - empiric steroids - empiric anticoagulation - complete empiric antibiotics - received convalescent plasma - trend ferritin, LDH, CRP - titrate HFOT to keep SpO2 >90% - BiPAP as needed - DVT prophylaxis - continue ICU monitoring for tenuous respiratory status
[2020-02-07] MEDS ORDERED: FUROSEMIDE 40 MG/4 ML INJECTABLE VIAL IVPUSH ONE (12:30)
--- NOTE | 2020-02-07 15:06 | PN ---
Progress Note (short form) - Note Progress Note: feels about the same alert Vital Signs Period Temp Pulse Resp BP Sys/Miner Pulse Ox Last 24 Hr 97.2 F-97.6 F 79-90 26-30 117-131/56-68 84-96 cor-rrr lungs decreased bs at bases abd soft,nt ext no edema cxray unchanged, ?worse on left CBC, BMP 02/07/20 05:45 02/07/20 05:45 Microbiology 01/27/20 09:30 Blood - Peripheral Venous Blood Culture - Final NO GROWTH AFTER 5 DAYS INCUBATION 01/27/20 09:30 Blood - Peripheral Venous Blood Culture - Final NO GROWTH AFTER 5 DAYS INCUBATION 01/25/20 16:29 Blood - Peripheral Venous Blood Culture - Final NO GROWTH AFTER 5 DAYS INCUBATION 01/25/20 16:29 Blood - Peripheral Venous Blood Culture - Final NO GROWTH AFTER 5 DAYS INCUBATION 01/27/20 14:15 Sputum - Expectorated Gram Stain - Final 01/27/20 14:15 Sputum - Expectorated Sputum Culture - Final Haemophilus Parainfluenzae Ii 01/27/20 09:20 Urine - Urine Clean Catch Legionella Antigen - Final 01/27/20 09:20 Urine - Urine Clean Catch Streptococcus pneumoniae Antigen (M - Final quant gold negative a/p fever-resolved recent diagnosis covid 19 positive hemophilus parainfluenza +sputum culture-s/p 10 days of antibioitics obesity- suspected osas HTN hypoxemic respiratory failure- persists s/p convalescent plasma s/p tocilizumab clinically about the same tenuous respiratory status- monitor in the ICU Problem List - Problems (1) Acute hypoxemic respiratory failure Code(s): J96.01 - ACUTE RESPIRATORY FAILURE WITH HYPOXIA (2) COVID-19 Code(s): U07.1 - COVID POSITIVE (3) HTN (hypertension) Code(s): I10 - ESSENTIAL (PRIMARY) HYPERTENSION (4) Obesity Code(s): E66.9 - OBESITY, UNSPECIFIED (5) REYNALDO (obstructive sleep apnea) Code(s): G47.33 - OBSTRUCTIVE SLEEP APNEA (ADULT) (PEDIATRIC)
[2020-02-07] MEDS ORDERED: guaiFENesin/D-M SUGAR-FREE/ACLHOL-FREE 118 ML BOTTLE PO PRN (16:22)
[2020-02-07] MEDS: CHLORHEXIDINE GLUCONATE 4% CLEANSER FOR DECOLONIZATION TP SCH (21:05)
[2020-02-08] MEDS: INSULIN (LEVEMIR) 100 UNITS/ML UNITS SQ SCH ×2 (06:10→21:42)
[2020-02-08] MEDS: INSULIN SLIDING SCALE (NOVOLOG) 1 VIAL SQ SCH ×4 (06:18→21:41)
[2020-02-08 06:48] LABS: BASO % 0.3 % (0-2.0); EOS % 0.6 % (0-4.5); HEMATOCRIT 40.4 % (35.4-49); LYMPH % 13.2 % (8-40); MCH 23.8 pg (25.7-33.7); MCHC 32.2 g/dl (32.0-35.9); MEAN CELL VOLUME 73.9 fl (80-96); MEAN PLT VOLUME 8.9 fl (7.5-11.1); MONO % 2.5 % (3.8-10.2); NEUT % 83.4 % (42.8-82.8); PLATELET COUNT 287 K/MM3 (134-434); RBC 5.46 M/mm3 (4.00-5.60); RDW 15.2 % (11.9-15.9); WHITE BLOOD COUNT 9.3 K/mm3 (4.0-10.0)
[2020-02-08 07:28] LABS: ALBUMIN 2.8 g/dl (3.4-5.0); BILIRUBIN,TOTAL 0.7 mg/dL (0.2-1); BLOOD UREA NITROGEN 18.4 mg/dL (7-18); CALCIUM 8.8 mg/dL (8.5-10.1); MAGNESIUM 2.3 mg/dL (1.8-2.4); POTASSIUM 4.8 mmol/L (3.5-5.1); TOT PROT 6.5 g/dl (6.4-8.2)
[2020-02-08] MEDS ORDERED: PT OWN MED DRAWER 7, Y5N ONE (09:13)
[2020-02-08] MEDS: ASPIRIN 81 MG CHEWABLE TABLETS PO SCH (10:21)
[2020-02-08] MEDS: methylPREDNISolone NA SUCC 40 MG/1 ML VIAL IVPUSH SCH ×2 (10:21→21:43)
[2020-02-08] MEDS: ZINC SULFATE 220 MG CAPSULE (FP) PO SCH ×2 (10:21→21:42)
[2020-02-08] MEDS: ASCORBIC ACID 500 MG TABLET (FP) PO SCH ×2 (10:21→21:43)
[2020-02-08] MEDS: CLOTRIMAZOLE 1% CREAM 15 GM TUBE TP SCH ×2 (10:21→21:42)
[2020-02-08] MEDS: APIXABAN 5 MG TABLET PO SCH ×2 (10:21→21:42)
--- NOTE | 2020-02-08 10:54 | PN ---
Physical Exam: SUBJECTIVE: no acute events overnight, BiPAP worn without difficulty RR 16 TV 500 FiO2 85 PEEP 15 OBJECTIVE: Vital Signs Period Temp Pulse Resp BP Sys/Miner Pulse Ox Last 24 Hr 97.2 F-98.3 F 66-107 30-35 104-145/56-98 95-98 exam per apron man Laboratory Results - last 24 hr 02/07/20 02/07/20 02/07/20 11:28 16:36 21:02 WBC RBC Hgb Hct MCV MCH MCHC RDW Plt Count MPV Absolute Neuts (auto) Neutrophils % Lymphocytes % Monocytes % Eosinophils % Basophils % Nucleated RBC % Sodium Potassium Chloride Carbon Dioxide Anion Gap BUN Creatinine Est GFR (CKD-EPI)AfAm Est GFR (CKD-EPI)NonAf POC Glucometer 282 349 373 Random Glucose Calcium Phosphorus Magnesium Ferritin Total Bilirubin AST ALT Alkaline Phosphatase LD Total C-Reactive Protein Total Protein Albumin 02/08/20 02/08/20 02/08/20 06:09 06:09 06:15 WBC 9.3 RBC 5.46 Hgb 13.0 Hct 40.4 MCV 73.9 L MCH 23.8 L MCHC 32.2 RDW 15.2 Plt Count 287 MPV 8.9 Absolute Neuts (auto) 7.7 Neutrophils % 83.4 H Lymphocytes % 13.2 D Monocytes % 2.5 L Eosinophils % 0.6 D Basophils % 0.3 Nucleated RBC % 0 Sodium 135 L Potassium 4.8 Chloride 97 L Carbon Dioxide 31 Anion Gap 7 L BUN 18.4 H Creatinine 1.0 Est GFR (CKD-EPI)AfAm 112.51 Est GFR (CKD-EPI)NonAf 97.08 POC Glucometer 338 Random Glucose 345 H Calcium 8.8 Phosphorus 4.0 Magnesium 2.3 Ferritin 700.5 H Total Bilirubin 0.7 AST 16 ALT 37 Alkaline Phosphatase 114 LD Total 591 H C-Reactive Protein 0.7 H Total Protein 6.5 Albumin 2.8 L Active Medications Generic Name Dose Route Start Last Admin Trade Name Freq PRN Reason Stop Dose Admin Acetaminophen 650 mg 01/26/20 23:02 02/03/20 21:56 Tylenol - PO 650 mg Q6H PRN Administration FEVER Albuterol Sulfate 1 puff 01/29/20 03:14 02/02/20 21:30 Ventolin Hfa Inhaler - IH 1 puff Q4H PRN Administration SHORT OF BREATH/WHEEZING Apixaban 5 mg 01/28/20 10:00 02/08/20 10:21 Eliquis - PO 5 mg BID SARAH Administration Ascorbic Acid 500 mg 02/03/20 22:00 02/08/20 10:21 Vitamin C - PO 500 mg BID SARAH Administration Aspirin 81 mg 02/03/20 16:15 02/08/20 10:21 Asa - PO 81 mg DAILY SARAH Administration Chlorhexidine Gluconate 1 applic 01/25/20 22:00 02/07/20 21:05 Hibiclens For Decolonization - TP 1 applic HS SARAH Administration Clotrimazole 1 applic 02/01/20 10:00 02/08/20 10:21 Lotrimin 1% Cream - TP 1 applic BID SARAH Administration Diphenhydramine HCl 50 mg 01/30/20 22:00 Benadryl Injection - IVPUSH HS PRN INSOMNIA Guaifenesin 10 ml 02/07/20 16:22 02/07/20 22:07 Diabetic Tussin Dm - PO 10 ml Q4H PRN Administration COUGH Insulin Aspart 1 vial 01/26/20 11:00 02/08/20 06:18 Novolog Vial Sliding Scale - SQ 8 units ACHS SARAH Administration Protocol Insulin Detemir 10 units 02/07/20 08:05 02/08/20 06:10 Levemir Vial SQ 10 units AM SARAH Administration Methylprednisolone Sodium Succinate 40 mg 02/05/20 10:23 02/08/20 10:21 Solu-Medrol - IVPUSH 40 mg BID SARAH Administration Ondansetron HCl 4 mg 02/04/20 23:07 02/05/20 16:00 Zofran Injection IVPUSH 4 mg Q6H PRN Administration NAUSEA Zinc Sulfate 220 mg 02/03/20 22:00 02/08/20 10:21 Orazinc - PO 220 mg BID SARAH Administration ASSESSMENT/PLAN: Pt is a 34 y/o male with HTN (not on meds) and newly diagnosed DM on admission, who presents with 3-4 days of increasing dyspnea and diarrhea. Two days ago he began having chest pain with coughing. 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 neuro/psych: -?COVID encephalitis, improved -CT head negative -lexapro 10mg daily cardio: -monitor BP, stable after tocolizumab -troponin, BNP negative pulm: #COVID -adjust between HFOT/NRB and BiPAP (night) as needed to keep O2 >90 -CXR slight improvement -Lasix 40mg IV -incentive spirometer -Legionella and step pneumo negative -sputum positive rare H. parainfluenzae endo: -A1C 10.5 -SSI -BGMs -levemir 10U ID: -solu-medrol 40mg BID (day 9) -s/p convalescent plasma 01/25 -s/p tocolizumab 01/29 -vitamin C -zinc -TB test negative -ID following DVT Ppx Eliquis 5mg BID FEN PO fluids monitor labs diabetic diet dispo: ICU monitoring FULL CODE Visit type - Emergency Visit Emergency Visit: Yes ED Registration Date: 01/25/20 Care time: The patient presented to the Emergency Department on the above date and was hospitalized for further evaluation of their emergent condition. - New Patient This patient is new to me today: No - Critical Care Critical Care patient: Yes Total Critical Care Time (in minutes): 35 Critical Care Statement: The care of this patient involved high complexity decision making to prevent further life threatening deterioration of the patient's condition and/or to evaluate & treat vital organ system(s) failure or risk of failure. ATTENDING PHYSICIAN STATEMENT I saw and evaluated the patient. I reviewed the resident's note and discussed the case with the resident. I agree with the resident's findings and plan as documented. SUBJECTIVE: OBJECTIVE: ASSESSMENT AND PLAN:
[2020-02-08] MEDS ORDERED: FUROSEMIDE 40 MG/4 ML INJECTABLE VIAL IVPUSH ONE (12:30)
--- NOTE | 2020-02-08 13:58 | PN ---
Teaching Attending Note Name of Resident: Bre Ramey ATTENDING PHYSICIAN STATEMENT I saw and evaluated the patient. I reviewed the resident's note and discussed the case with the resident. I agree with the resident's findings and plan as documented. PULMONARY/CCM SUBJECTIVE: Pt seen and examined in the ICU. On NRB, still desaturates quickly without oxygen. States some shortness of breath overnight. No fevers recorded. OBJECTIVE: Vital Signs Period Temp Pulse Resp BP Sys/Miner Pulse Ox Last 24 Hr 97.5 F-98.3 F 66-111 25-35 104-145/62-98 92-98 Intake & Output 02/05/20 02/06/20 02/07/20 02/08/20 23:59 23:59 23:59 23:59 Intake Total 300 700 Output Total 1456 193 0711 800 Balance -1700 -300 -1500 -800 Gen: NAD at rest Heart: RRR Lung: decreased breath sounds at the bases Abd: soft, nontender Ext: no edema CXR: bilateral infiltrates CBC, BMP 02/08/20 06:09 02/08/20 06:09 Laboratory Tests 02/08/20 06:09 Ferritin 700.5 H LD Total 591 H C-Reactive Protein 0.7 H Active Medications Acetaminophen (Tylenol -) 650 mg PO Q6H PRN PRN Reason: FEVER Last Admin: 02/03/20 21:56 Dose: 650 mg Documented by: Albuterol Sulfate (Ventolin Hfa Inhaler -) 1 puff IH Q4H PRN PRN Reason: SHORT OF BREATH/WHEEZING Last Admin: 02/02/20 21:30 Dose: 1 puff Documented by: Apixaban (Eliquis -) 5 mg PO BID [facility] Last Admin: 02/08/20 10:21 Dose: 5 mg Documented by: Ascorbic Acid (Vitamin C -) 500 mg PO BID [facility] Last Admin: 02/08/20 10:21 Dose: 500 mg Documented by: Aspirin (Asa -) 81 mg PO DAILY [facility] Last Admin: 02/08/20 10:21 Dose: 81 mg Documented by: Chlorhexidine Gluconate (Hibiclens For Decolonization -) 1 applic TP HS [facility] Last Admin: 02/07/20 21:05 Dose: 1 applic Documented by: Clotrimazole (Lotrimin 1% Cream -) 1 applic TP BID [facility] Last Admin: 02/08/20 10:21 Dose: 1 applic Documented by: Diphenhydramine HCl (Benadryl Injection -) 50 mg IVPUSH HS PRN PRN Reason: INSOMNIA Guaifenesin/Codeine Phosphate (Robitussin Ac -) 10 ml PO Q6H PRN PRN Reason: COUGH Insulin Aspart (Novolog Vial Sliding Scale -) 1 vial SQ ACHS [facility]; Protocol Last Admin: 02/08/20 11:39 Dose: 8 units Documented by: Insulin Detemir (Levemir Vial) 10 units SQ AM [facility] Last Admin: 02/08/20 06:10 Dose: 10 units Documented by: Methylprednisolone Sodium Succinate (Solu-Medrol -) 40 mg IVPUSH BID [facility] Last Admin: 02/08/20 10:21 Dose: 40 mg Documented by: Ondansetron HCl (Zofran Injection) 4 mg IVPUSH Q6H PRN PRN Reason: NAUSEA Last Admin: 02/05/20 16:00 Dose: 4 mg Documented by: Zinc Sulfate (Orazinc -) 220 mg PO BID [facility] Last Admin: 02/08/20 10:21 Dose: 220 mg Documented by: ASSESSMENT AND PLAN: Acute Hypoxic Respiratory Failure COVID Pneumonia HTN DM - s/p tocilizumab infusion - empiric steroids - empiric anticoagulation - complete empiric antibiotics - received convalescent plasma - trend ferritin, LDH, CRP - titrate O2 to keep SpO2 >90% - BiPAP as needed - DVT prophylaxis - continue ICU monitoring for tenuous respiratory status
--- NOTE | 2020-02-08 14:17 | PN ---
Progress Note (short form) - Note Progress Note: feels about the same-still sob alert still NRB mask Vital Signs Period Temp Pulse Resp BP Sys/Miner Pulse Ox Last 24 Hr 97.5 F-98.3 F 66-111 25-35 104-145/62-98 92-98 cor-rrr lungs decreased bs at bases abd soft,nt ext no edema CBC, BMP 02/08/20 06:09 02/08/20 06:09 Microbiology 01/27/20 09:30 Blood - Peripheral Venous Blood Culture - Final NO GROWTH AFTER 5 DAYS INCUBATION 01/27/20 09:30 Blood - Peripheral Venous Blood Culture - Final NO GROWTH AFTER 5 DAYS INCUBATION 01/25/20 16:29 Blood - Peripheral Venous Blood Culture - Final NO GROWTH AFTER 5 DAYS INCUBATION 01/25/20 16:29 Blood - Peripheral Venous Blood Culture - Final NO GROWTH AFTER 5 DAYS INCUBATION 01/27/20 14:15 Sputum - Expectorated Gram Stain - Final 01/27/20 14:15 Sputum - Expectorated Sputum Culture - Final Haemophilus Parainfluenzae Ii 01/27/20 09:20 Urine - Urine Clean Catch Legionella Antigen - Final 01/27/20 09:20 Urine - Urine Clean Catch Streptococcus pneumoniae Antigen (M - Final quant gold negative a/p fever-resolved recent diagnosis covid 19 positive hemophilus parainfluenza +sputum culture-s/p 10 days of antibioitics obesity- suspected osas HTN hypoxemic respiratory failure- persists s/p convalescent plasma s/p tocilizumab remains hypoxemic Problem List - Problems (1) Acute hypoxemic respiratory failure Code(s): J96.01 - ACUTE RESPIRATORY FAILURE WITH HYPOXIA (2) COVID-19 Code(s): U07.1 - COVID POSITIVE (3) HTN (hypertension) Code(s): I10 - ESSENTIAL (PRIMARY) HYPERTENSION (4) Obesity Code(s): E66.9 - OBESITY, UNSPECIFIED (5) REYNALDO (obstructive sleep apnea) Code(s): G47.33 - OBSTRUCTIVE SLEEP APNEA (ADULT) (PEDIATRIC)
[2020-02-08] MEDS ORDERED: ACETAMINOPHEN W/ CODEINE LIQ 5 ML CUP PO ONE (21:30)
[2020-02-08] MEDS: CHLORHEXIDINE GLUCONATE 4% CLEANSER FOR DECOLONIZATION TP SCH (21:42)
[2020-02-08] MEDS ORDERED: SIMETHICONE 80 MG TAB.CHEW (FP) PO ONE (21:44)
[2020-02-09] MEDS: ACETAMINOPHEN W/ CODEINE LIQ 5 ML CUP PO PRN ×2 (04:26→09:38)
[2020-02-09] MEDS: guaiFENesin/CODEINE 10 ML UNIT-DOSE CUPS PO PRN (04:26)
[2020-02-09] MEDS: INSULIN SLIDING SCALE (NOVOLOG) 1 VIAL SQ SCH ×5 (06:00→22:00)
[2020-02-09] MEDS: ASPIRIN 81 MG CHEWABLE TABLETS PO SCH (09:38)
[2020-02-09] MEDS: APIXABAN 5 MG TABLET PO SCH ×2 (09:38→22:00)
[2020-02-09] MEDS: methylPREDNISolone NA SUCC 40 MG/1 ML VIAL IVPUSH SCH ×2 (09:39→22:00)
[2020-02-09] MEDS: ASCORBIC ACID 500 MG TABLET (FP) PO SCH ×2 (09:39→22:00)
[2020-02-09] MEDS: ZINC SULFATE 220 MG CAPSULE (FP) PO SCH ×2 (09:39→22:00)
[2020-02-09] MEDS: INSULIN (LEVEMIR) 100 UNITS/ML UNITS SQ SCH (09:42)
[2020-02-09] MEDS: CLOTRIMAZOLE 1% CREAM 15 GM TUBE TP SCH (09:43)
--- NOTE | 2020-02-09 10:22 | PN ---
Physical Exam: SUBJECTIVE: Patient seen and examined at bedside. Overnight he experienced a cough that was relieved by antitussives. This AM he offers no new complaints. OBJECTIVE: Vital Signs Period Temp Pulse Resp BP Sys/Miner Pulse Ox Last 24 Hr 111 25-28 100-117/66-69 90-98 GENERAL: The patient is awake, alert, and fully oriented, in no acute distress. HEAD: Normal with no signs of trauma. LUNGS: Equal rise and fall of the chest wall. Tachypnea HEART: Regular rate and rhythm SKIN: Warm, dry, normal turgor, no rashes or lesions noted Laboratory Results - last 24 hr 02/08/20 02/08/20 02/08/20 11:11 17:17 21:12 POC Glucometer 315 313 441 02/09/20 05:49 POC Glucometer 341 Active Medications Generic Name Dose Route Start Last Admin Trade Name Freq PRN Reason Stop Dose Admin Acetaminophen/Codeine Phosphate 10 ml 02/09/20 03:51 02/09/20 09:38 Tylenol W/Codeine Oral Solution - PO 10 ml Q6H PRN Administration PAIN LEVEL 6-10 Albuterol Sulfate 1 puff 01/29/20 03:14 02/02/20 21:30 Ventolin Hfa Inhaler - IH 1 puff Q4H PRN Administration SHORT OF BREATH/WHEEZING Apixaban 5 mg 01/28/20 10:00 02/09/20 09:38 Eliquis - PO 5 mg BID SARAH Administration Ascorbic Acid 500 mg 02/03/20 22:00 02/09/20 09:39 Vitamin C - PO 500 mg BID SARAH Administration Aspirin 81 mg 02/03/20 16:15 02/09/20 09:38 Asa - PO 81 mg DAILY SARAH Administration Chlorhexidine Gluconate 1 applic 01/25/20 22:00 02/08/20 21:42 Hibiclens For Decolonization - TP 1 applic HS SARAH Administration Clotrimazole 1 applic 02/01/20 10:00 02/09/20 09:43 Lotrimin 1% Cream - TP 1 applic BID SARAH Administration Diphenhydramine HCl 50 mg 01/30/20 22:00 Benadryl Injection - IVPUSH HS PRN INSOMNIA Guaifenesin/Codeine Phosphate 10 ml 02/08/20 12:52 05/14/20 04:26 Robitussin Ac - PO 10 ml Q6H PRN Administration COUGH Insulin Aspart 1 vial 01/26/20 11:00 02/09/20 06:00 Novolog Vial Sliding Scale - SQ 8 units ACHS SARAH Administration Protocol Insulin Detemir 15 units 02/09/20 22:00 Levemir Vial SQ BID SARAH Methylprednisolone Sodium Succinate 40 mg 02/05/20 10:23 02/09/20 09:39 Solu-Medrol - IVPUSH 40 mg BID SARAH Administration Ondansetron HCl 4 mg 02/04/20 23:07 02/05/20 16:00 Zofran Injection IVPUSH 4 mg Q6H PRN Administration NAUSEA Zinc Sulfate 220 mg 02/03/20 22:00 02/09/20 09:39 Orazinc - PO 220 mg BID SARAH Administration ASSESSMENT/PLAN: 34 y/o male PMH HTN (not on meds) and newly diagnosed DM on admission, who presents with 3-4 days of increasing dyspnea and diarrhea. Two days ago he began having chest pain with coughing. 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 neuro/psych: -?COVID encephalitis, improved -CT head negative -lexapro 10mg daily cardio: -monitor BP, stable after tocolizumab -troponin, BNP negative pulm: #COVID -adjust between HFOT/NRB and BiPAP (night) as needed to keep O2 >90 -CXR slight improvement -Lasix 40mg IV -incentive spirometer -Legionella and step pneumo negative -sputum positive rare H. parainfluenzae endo: -A1C 10.5 -SSI -BGMs -levemir 15 BID - Encourage portion control and adherence to diabetic diet ID: -solu-medrol 40mg BID -s/p convalescent plasma 01/25 -s/p tocolizumab 54 -vitamin C -zinc -TB test negative -ID following DVT Ppx Eliquis 5mg BID FEN PO fluids monitor labs diabetic diet dispo: ICU monitoring FULL CODE Visit type - Emergency Visit Emergency Visit: No - New Patient This patient is new to me today: Yes Date on this admission: 02/09/20 - Critical Care Critical Care patient: No Total Critical Care Time (in minutes): 30 Critical Care Statement: The care of this patient involved high complexity decision making to prevent further life threatening deterioration of the patient's condition and/or to evaluate & treat vital organ system(s) failure or risk of failure. ATTENDING PHYSICIAN STATEMENT I saw and evaluated the patient. I reviewed the resident's note and discussed the case with the resident. I agree with the resident's findings and plan as documented. SUBJECTIVE: OBJECTIVE: ASSESSMENT AND PLAN:
--- NOTE | 2020-02-09 11:58 | PN ---
Teaching Attending Note Name of Resident: William Waggoner ATTENDING PHYSICIAN STATEMENT I saw and evaluated the patient. I reviewed the resident's note and discussed the case with the resident. I agree with the resident's findings and plan as documented. PULMONARY/CCM SUBJECTIVE: Pt seen and examined in the ICU. On HFOT with 90% FiO2, feels about the same. Still desaturates quickly without oxygen. States some shortness of breath over night. No fevers recorded. OBJECTIVE: Vital Signs Period Temp Pulse Resp BP Sys/Miner Pulse Ox Last 24 Hr 111 25-28 100-117/66-76 90-98 Intake & Output 02/06/20 02/07/20 02/08/20 02/09/20 23:59 23:59 23:59 23:59 Intake Total 300 700 Output Total 600 2200 1300 1100 Balance -300 -1500 -1300 -1100 Gen: NAD at rest Heart: RRR Lung: decreased breath sounds at the bases Abd: soft, nontender Ext: no edema CXR: bilateral infiltrates CBC, BMP 02/08/20 06:09 02/08/20 06:09 Active Medications Acetaminophen/Codeine Phosphate (Tylenol W/Codeine Oral Solution -) 10 ml PO Q6H PRN PRN Reason: PAIN LEVEL 6-10 Last Admin: 02/09/20 09:38 Dose: 10 ml Documented by: Albuterol Sulfate (Ventolin Hfa Inhaler -) 1 puff IH Q4H PRN PRN Reason: SHORT OF BREATH/WHEEZING Last Admin: 02/02/20 21:30 Dose: 1 puff Documented by: Apixaban (Eliquis -) 5 mg PO BID [facility] Last Admin: 02/09/20 09:38 Dose: 5 mg Documented by: Ascorbic Acid (Vitamin C -) 500 mg PO BID [facility] Last Admin: 02/09/20 09:39 Dose: 500 mg Documented by: Aspirin (Asa -) 81 mg PO DAILY [facility] Last Admin: 02/09/20 09:38 Dose: 81 mg Documented by: Chlorhexidine Gluconate (Hibiclens For Decolonization -) 1 applic TP HS [facility] Last Admin: 02/08/20 21:42 Dose: 1 applic Documented by: Clotrimazole (Lotrimin 1% Cream -) 1 applic TP BID [facility] Last Admin: 02/09/20 09:43 Dose: 1 applic Documented by: Diphenhydramine HCl (Benadryl Injection -) 50 mg IVPUSH HS PRN PRN Reason: INSOMNIA Guaifenesin/Codeine Phosphate (Robitussin Ac -) 10 ml PO Q6H PRN PRN Reason: COUGH Last Admin: 02/09/20 04:26 Dose: 10 ml Documented by: Insulin Aspart (Novolog Vial Sliding Scale -) 1 vial SQ [facility]; Protocol Last Admin: 02/09/20 06:00 Dose: 8 units Documented by: Insulin Detemir (Levemir Vial) 15 units SQ BID@0700,2200 [facility] Methylprednisolone Sodium Succinate (Solu-Medrol -) 40 mg IVPUSH BID [facility] Last Admin: 02/09/20 09:39 Dose: 40 mg Documented by: Ondansetron HCl (Zofran Injection) 4 mg IVPUSH Q6H PRN PRN Reason: NAUSEA Last Admin: 02/05/20 16:00 Dose: 4 mg Documented by: Zinc Sulfate (Orazinc -) 220 mg PO BID [facility] Last Admin: 02/09/20 09:39 Dose: 220 mg Documented by: ASSESSMENT AND PLAN: Acute Hypoxic Respiratory Failure COVID Pneumonia HTN DM - s/p tocilizumab infusion - empiric steroids - empiric anticoagulation - complete empiric antibiotics - received convalescent plasma - trend ferritin, LDH, CRP - titrate O2 to keep SpO2 >90% - BiPAP as needed - DVT prophylaxis - continue ICU monitoring for tenuous respiratory status
[2020-02-09] MEDS ORDERED: ACETAMINOPHEN 1000 MG/100 ML VIAL (NON FORMULARY) IVPB ONE (17:21)
[2020-02-09] MEDS ORDERED: LIDOCAINE VISCOUS 2% ORAL/TOP 20 ML UNIT-DOSE CUP MM ONE ×2 (21:00→21:40)
[2020-02-09] MEDS: CHLORHEXIDINE GLUCONATE 4% CLEANSER FOR DECOLONIZATION TP SCH (22:00)
[2020-02-09] MEDS ORDERED: INSULIN (LEVEMIR) 100 UNITS/ML UNITS SQ SCH (22:00)
[2020-02-09] MEDS ORDERED: diazePAM CARPU-JECT 10 MG/2 ML DISP.SYRIN IVPUSH ONE (22:24)
[2020-02-09] MEDS ORDERED: ACETAMINOPHEN 325 MG TABLET (FP) PO PRN (22:24)
[2020-02-10] MEDS: CLOTRIMAZOLE 1% CREAM 15 GM TUBE TP SCH ×2 (01:28→10:06)
[2020-02-10] MEDS ORDERED: diazePAM CARPU-JECT 10 MG/2 ML DISP.SYRIN ONE (03:22)
[2020-02-10 06:50] LABS: HEMATOCRIT 40.8 % (35.4-49); MCH 23.8 pg (25.7-33.7); MCHC 31.9 g/dl (32.0-35.9); MEAN CELL VOLUME 74.6 fl (80-96); MEAN PLT VOLUME 9.1 fl (7.5-11.1); PLATELET COUNT 310 K/MM3 (134-434); RBC 5.48 M/mm3 (4.00-5.60); RDW 15.6 % (11.9-15.9)
[2020-02-10 08:27] LABS: ALBUMIN 2.9 g/dl (3.4-5.0); ALK PHOS 112 U/L (45-117); ANION GAP 9 MMOL/L (8-16); BILIRUBIN,TOTAL 0.8 mg/dL (0.2-1); BLOOD UREA NITROGEN 22.6 mg/dL (7-18); CALCIUM 8.8 mg/dL (8.5-10.1); CHLORIDE 94 mmol/L (98-107); CO2 31 mmol/L (21-32); CREATININE 0.9 mg/dL (0.55-1.3); GLUCOSE,RANDOM 304 mg/dL (74-106); LDH 546 U/L (87-246); MAGNESIUM 2.2 mg/dL (1.8-2.4); PHOSPHOROUS 4.6 mg/dL (2.5-4.9); POTASSIUM 4.9 mmol/L (3.5-5.1); SGOT/AST 12 U/L (15-37); SGPT/ALT 31 U/L (13-61); SODIUM 134 mmol/L (136-145); TOT PROT 6.5 g/dl (6.4-8.2)
[2020-02-10] MEDS ORDERED: INSULIN (NOVOLOG) ASPART 100 UNITS/ML 10ML VIAL ONE (10:00)
[2020-02-10] MEDS: methylPREDNISolone NA SUCC 40 MG/1 ML VIAL IVPUSH SCH ×2 (10:05→22:30)
[2020-02-10] MEDS: ZINC SULFATE 220 MG CAPSULE (FP) PO SCH ×2 (10:06→22:30)
[2020-02-10] MEDS: APIXABAN 5 MG TABLET PO SCH ×2 (10:06→22:30)
[2020-02-10] MEDS: ASCORBIC ACID 500 MG TABLET (FP) PO SCH ×2 (10:06→22:30)
[2020-02-10] MEDS: ASPIRIN 81 MG CHEWABLE TABLETS PO SCH (10:06)
[2020-02-10] MEDS: guaiFENesin/CODEINE 10 ML UNIT-DOSE CUPS PO PRN (10:06)
--- NOTE | 2020-02-10 10:40 | PN ---
Physical Exam: SUBJECTIVE: Patient seen and examined at bedside. Overnight he experienced a cough that was relieved by valium. This AM he offers no new complaints. OBJECTIVE: Vital Signs Period Temp Pulse Resp BP Sys/Miner Pulse Ox Last 24 Hr 98.4 F-98.9 F 28 110-138/68-80 97-100 GENERAL: The patient is awake, alert, and fully oriented, in no acute distress. HEAD: Normal with no signs of trauma. LUNGS: Equal rise and fall of the chest wall. Tachypnea HEART: Regular rate and rhythm SKIN: Warm, dry, normal turgor, no rashes or lesions noted Laboratory Results - last 24 hr 02/09/20 02/09/20 02/09/20 11:58 18:05 21:57 WBC RBC Hgb Hct MCV MCH MCHC RDW Plt Count MPV Sodium Potassium Chloride Carbon Dioxide Anion Gap BUN Creatinine Est GFR (CKD-EPI)AfAm Est GFR (CKD-EPI)NonAf POC Glucometer 391 345 292 Random Glucose Calcium Phosphorus Magnesium Ferritin Total Bilirubin AST ALT Alkaline Phosphatase LD Total C-Reactive Protein Total Protein Albumin 02/10/20 02/10/20 02/10/20 05:52 05:52 10:16 WBC 10.0 RBC 5.48 Hgb 13.0 Hct 40.8 MCV 74.6 L MCH 23.8 L MCHC 31.9 L RDW 15.6 Plt Count 310 MPV 9.1 Sodium 134 L Potassium 4.9 Chloride 94 L Carbon Dioxide 31 Anion Gap 9 BUN 22.6 H Creatinine 0.9 Est GFR (CKD-EPI)AfAm 127.80 Est GFR (CKD-EPI)NonAf 110.27 POC Glucometer 261 Random Glucose 304 H Calcium 8.8 Phosphorus 4.6 Magnesium 2.2 Ferritin 601.0 H Total Bilirubin 0.8 AST 12 L ALT 31 Alkaline Phosphatase 112 LD Total 546 H C-Reactive Protein < 0.3 Total Protein 6.5 Albumin 2.9 L Active Medications Generic Name Dose Route Start Last Admin Trade Name Freq PRN Reason Stop Dose Admin Acetaminophen 650 mg 02/09/20 22:24 Tylenol - PO Q6H PRN FEVER Albuterol Sulfate 1 puff 01/29/20 03:14 02/02/20 21:30 Ventolin Hfa Inhaler - IH 1 puff Q4H PRN Administration SHORT OF BREATH/WHEEZING Apixaban 5 mg 01/28/20 10:00 02/10/20 10:06 Eliquis - PO 5 mg BID SARHA Administration Ascorbic Acid 500 mg 02/03/20 22:00 02/10/20 10:06 Vitamin C - PO 500 mg BID SARAH Administration Aspirin 81 mg 02/03/20 16:15 02/10/20 10:06 Asa - PO 81 mg DAILY [facility]AH Administration Chlorhexidine Gluconate 1 applic 01/25/20 22:00 02/09/20 22:00 Hibiclens For Decolonization - TP 1 applic HS SARAH Administration Clotrimazole 1 applic 02/01/20 10:00 02/10/20 10:06 Lotrimin 1% Cream - TP 1 applic BID SARAH Administration Diphenhydramine HCl 50 mg 01/30/20 22:00 Benadryl Injection - IVPUSH HS PRN INSOMNIA Guaifenesin/Codeine Phosphate 10 ml 02/08/20 12:52 02/10/20 10:06 Robitussin Ac - PO 10 ml Q6H PRN Administration COUGH Insulin Aspart 1 vial 01/26/20 11:00 02/09/20 22:00 Novolog Vial Sliding Scale - SQ 6 units ACHS SARAH Administration Protocol Insulin Detemir 30 units 02/10/20 22:00 Levemir Vial SQ BID@0700,2200 [facility] Methylprednisolone Sodium Succinate 40 mg 02/05/20 10:23 02/10/20 10:05 Solu-Medrol - IVPUSH 40 mg BID [facility]AH Administration Ondansetron HCl 4 mg 02/04/20 23:07 02/05/20 16:00 Zofran Injection IVPUSH 4 mg Q6H PRN Administration NAUSEA Zinc Sulfate 220 mg 02/03/20 22:00 02/10/20 10:06 Orazinc - PO 220 mg BID [facility]AH Administration ASSESSMENT/PLAN: 34 y/o male PMH HTN (not on meds) and newly diagnosed DM on admission, who presents with 3-4 days of increasing dyspnea and diarrhea. Two days ago he began having chest pain with coughing. 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 Admitted for care of acute respiratory failure 2/2 CoVid-19. neuro/psych: -Possible COVID encephalitis, resolved. -CT head negative -lexapro 10mg daily cardio: -monitor BP, stable after tocolizumab -troponin, BNP negative pulm: #COVID -adjust between HFOT/NRB and BiPAP (night) as needed to keep O2 >90 -CXR slight improvement -Lasix 40mg IV -incentive spirometer -Legionella and step pneumo negative -sputum positive rare H. parainfluenzae endo: -A1C 10.5 -SSI -BGMs -levemir CHANGE TO 30 BID - Encourage portion control and adherence to diabetic diet ID: -solu-medrol 40mg BID -s/p convalescent plasma 01/25 -s/p tocolizumab 01/29 -vitamin C -zinc -TB test negative -ID following DVT Ppx Eliquis 5mg BID FEN PO fluids monitor labs diabetic diet dispo: ICU monitoring FULL CODE Visit type - Emergency Visit Emergency Visit: No - New Patient This patient is new to me today: No - Critical Care Critical Care patient: Yes Total Critical Care Time (in minutes): 30 Critical Care Statement: The care of this patient involved high complexity decision making to prevent further life threatening deterioration of the patient's condition and/or to evaluate & treat vital organ system(s) failure or risk of failure. ATTENDING PHYSICIAN STATEMENT I saw and evaluated the patient. I reviewed the resident's note and discussed the case with the resident. I agree with the resident's findings and plan as documented. SUBJECTIVE: OBJECTIVE: ASSESSMENT AND PLAN:
--- NOTE | 2020-02-10 10:46 | PN ---
Progress Note (short form) - Note Progress Note: about the same or a bit better no fevers Vital Signs Period Temp Pulse Resp BP Sys/Miner Pulse Ox Last 24 Hr 98.4 F-98.9 F 70 28 110-138/68-80 97-100 cor-rrr lungs decreased bs at bases abd soft,nt ext no edema CBC, BMP 02/10/20 05:52 02/10/20 05:52 Microbiology 01/27/20 09:30 Blood - Peripheral Venous Blood Culture - Final NO GROWTH AFTER 5 DAYS INCUBATION 01/27/20 09:30 Blood - Peripheral Venous Blood Culture - Final NO GROWTH AFTER 5 DAYS INCUBATION 01/25/20 16:29 Blood - Peripheral Venous Blood Culture - Final NO GROWTH AFTER 5 DAYS INCUBATION 01/25/20 16:29 Blood - Peripheral Venous Blood Culture - Final NO GROWTH AFTER 5 DAYS INCUBATION 01/27/20 14:15 Sputum - Expectorated Gram Stain - Final 01/27/20 14:15 Sputum - Expectorated Sputum Culture - Final Haemophilus Parainfluenzae Ii 01/27/20 09:20 Urine - Urine Clean Catch Legionella Antigen - Final 01/27/20 09:20 Urine - Urine Clean Catch Streptococcus pneumoniae Antigen (M - Final cxray unchanged quant gold negative a/p fever-resolved recent diagnosis covid 19 positive hemophilus parainfluenza +sputum culture-s/p 10 days of antibioitics obesity- suspected osas HTN hypoxemic respiratory failure- persists s/p convalescent plasma s/p tocilizumab remains on NRB reports a bit less sob today Problem List - Problems (1) Acute hypoxemic respiratory failure Code(s): J96.01 - ACUTE RESPIRATORY FAILURE WITH HYPOXIA (2) COVID-19 Code(s): U07.1 - COVID POSITIVE (3) HTN (hypertension) Code(s): I10 - ESSENTIAL (PRIMARY) HYPERTENSION (4) Obesity Code(s): E66.9 - OBESITY, UNSPECIFIED (5) REYNALDO (obstructive sleep apnea) Code(s): G47.33 - OBSTRUCTIVE SLEEP APNEA (ADULT) (PEDIATRIC)
[2020-02-10] MEDS: INSULIN SLIDING SCALE (NOVOLOG) 1 VIAL SQ SCH ×4 (11:01→22:30)
--- NOTE | 2020-02-10 14:42 | PN ---
Teaching Attending Note Name of Resident: William Waggoner ATTENDING PHYSICIAN STATEMENT I saw and evaluated the patient. I reviewed the resident's note and discussed the case with the resident. I agree with the resident's findings and plan as documented. PULMONARY/CCM SUBJECTIVE: Pt seen and examined in the ICU. On NRB, feels slightly better. Still desaturates quickly without oxygen. States some shortness of breath overnight. No fevers recorded. OBJECTIVE: Vital Signs Period Temp Pulse Resp BP Sys/Miner Pulse Ox Last 24 Hr 98.4 F-98.9 F 70 28 110-138/68-80 97-100 Intake & Output 02/07/20 02/08/20 02/09/20 02/10/20 23:59 23:59 23:59 23:59 Intake Total 700 150 Output Total 2200 1300 1875 Balance -1500 -1300 -1725 Gen: NAD at rest Heart: RRR Lung: decreased breath sounds at the bases Abd: soft, nontender Ext: no edema CXR: bilateral infiltrates CBC, BMP 02/10/20 05:52 02/10/20 05:52 ABG Results ABG pH 7.43 (7.35-7.45) 02/06/20 05:47 ABG pCO2 at Pt Temp 50.0 mmHg (35-45) H 02/06/20 05:47 ABG pO2 at Pt Temp 80.1 mmHg (80-100) 02/06/20 05:47 ABG HCO3 32.4 mmol/L (22-27) H 02/06/20 05:47 ABG O2 Sat (Measured) 96.0 % (95-98) 02/06/20 05:47 ABG O2 Content No Result Required. 02/06/20 05:47 ABG Base Excess 6.8 mmol/L (-2-2) H 02/06/20 05:47 Laboratory Tests 02/10/20 05:52 Ferritin 601.0 H LD Total 546 H C-Reactive Protein < 0.3 Active Medications Acetaminophen (Tylenol -) 650 mg PO Q6H PRN PRN Reason: FEVER Albuterol Sulfate (Ventolin Hfa Inhaler -) 1 puff IH Q4H PRN PRN Reason: SHORT OF BREATH/WHEEZING Last Admin: 02/02/20 21:30 Dose: 1 puff Documented by: Apixaban (Eliquis -) 5 mg PO BID [facility] Last Admin: 02/10/20 10:06 Dose: 5 mg Documented by: Ascorbic Acid (Vitamin C -) 500 mg PO BID [facility] Last Admin: 02/10/20 10:06 Dose: 500 mg Documented by: Aspirin (Asa -) 81 mg PO DAILY [facility] Last Admin: 02/10/20 10:06 Dose: 81 mg Documented by: Chlorhexidine Gluconate (Hibiclens For Decolonization -) 1 applic TP HS [facility] Last Admin: 02/09/20 22:00 Dose: 1 applic Documented by: Clotrimazole (Lotrimin 1% Cream -) 1 applic TP BID [facility] Last Admin: 02/10/20 10:06 Dose: 1 applic Documented by: Diphenhydramine HCl (Benadryl Injection -) 50 mg IVPUSH HS PRN PRN Reason: INSOMNIA Guaifenesin/Codeine Phosphate (Robitussin Ac -) 10 ml PO Q6H PRN PRN Reason: COUGH Last Admin: 02/10/20 10:06 Dose: 10 ml Documented by: Insulin Aspart (Novolog Vial Sliding Scale -) 1 vial SQ [facility]; Protocol Last Admin: 02/10/20 11:07 Dose: 6 units Documented by: Insulin Detemir (Levemir Vial) 30 units SQ BID@0700,2200 [facility] Methylprednisolone Sodium Succinate (Solu-Medrol -) 40 mg IVPUSH BID [facility] Last Admin: 02/10/20 10:05 Dose: 40 mg Documented by: Ondansetron HCl (Zofran Injection) 4 mg IVPUSH Q6H PRN PRN Reason: NAUSEA Last Admin: 02/05/20 16:00 Dose: 4 mg Documented by: Zinc Sulfate (Orazinc -) 220 mg PO BID [facility] Last Admin: 02/10/20 10:06 Dose: 220 mg Documented by: ASSESSMENT AND PLAN: Acute Hypoxic Respiratory Failure COVID Pneumonia HTN DM - s/p tocilizumab infusion - empiric steroids - empiric anticoagulation - complete empiric antibiotics - received convalescent plasma - trend ferritin, LDH, CRP - titrate O2 to keep SpO2 >90% - BiPAP as needed - cough suppressants - DVT prophylaxis - continue ICU monitoring for tenuous respiratory status
[2020-02-10] MEDS ORDERED: diazePAM 2 MG TABLET PO PRN (20:21)
[2020-02-10] MEDS: CHLORHEXIDINE GLUCONATE 4% CLEANSER FOR DECOLONIZATION TP SCH (22:30)
[2020-02-10] MEDS: INSULIN (LEVEMIR) 100 UNITS/ML UNITS SQ SCH (22:30)
[2020-02-11] MEDS ORDERED: diazePAM CARPU-JECT 10 MG/2 ML DISP.SYRIN IVPUSH ONE (02:49)
[2020-02-11] MEDS: CLOTRIMAZOLE 1% CREAM 15 GM TUBE TP SCH ×3 (05:35→21:08)
[2020-02-11 06:47] LABS: HEMATOCRIT 39.6 % (35.4-49); HEMOGLOBIN 12.7 GM/dL (11.7-16.9); MCH 24.1 pg (25.7-33.7); MCHC 32.2 g/dl (32.0-35.9); MEAN CELL VOLUME 74.9 fl (80-96); MEAN PLT VOLUME 9.1 fl (7.5-11.1); PLATELET COUNT 307 K/MM3 (134-434); RBC 5.28 M/mm3 (4.00-5.60); RDW 15.3 % (11.9-15.9); WHITE BLOOD COUNT 9.7 K/mm3 (4.0-10.0)
[2020-02-11 07:12] LABS: ALBUMIN 2.8 g/dl (3.4-5.0); BILIRUBIN,TOTAL 0.8 mg/dL (0.2-1); BLOOD UREA NITROGEN 20.4 mg/dL (7-18); CALCIUM 8.5 mg/dL (8.5-10.1); CREATININE 0.9 mg/dL (0.55-1.3); PHOSPHOROUS 4.4 mg/dL (2.5-4.9); POTASSIUM 4.2 mmol/L (3.5-5.1); TOT PROT 6.1 g/dl (6.4-8.2)
[2020-02-11] MEDS: INSULIN SLIDING SCALE (NOVOLOG) 1 VIAL SQ SCH ×4 (08:59→22:48)
[2020-02-11] MEDS: INSULIN (LEVEMIR) 100 UNITS/ML UNITS SQ SCH ×2 (09:00→22:48)
[2020-02-11] MEDS: ASPIRIN 81 MG CHEWABLE TABLETS PO SCH (09:01)
[2020-02-11] MEDS: methylPREDNISolone NA SUCC 40 MG/1 ML VIAL IVPUSH SCH ×2 (09:01→21:09)
[2020-02-11] MEDS: ASCORBIC ACID 500 MG TABLET (FP) PO SCH ×2 (09:01→21:08)
[2020-02-11] MEDS: APIXABAN 5 MG TABLET PO SCH ×2 (09:01→21:08)
[2020-02-11] MEDS: ZINC SULFATE 220 MG CAPSULE (FP) PO SCH ×2 (09:01→21:09)
--- NOTE | 2020-02-11 10:20 | PN ---
Problem List - Problems (1) Acute hypoxemic respiratory failure Code(s): J96.01 - ACUTE RESPIRATORY FAILURE WITH HYPOXIA (2) COVID-19 Code(s): U07.1 - COVID POSITIVE (3) HTN (hypertension) Code(s): I10 - ESSENTIAL (PRIMARY) HYPERTENSION (4) Obesity Code(s): E66.9 - OBESITY, UNSPECIFIED (5) REYNALDO (obstructive sleep apnea) Code(s): G47.33 - OBSTRUCTIVE SLEEP APNEA (ADULT) (PEDIATRIC)
--- NOTE | 2020-02-11 13:32 | PN ---
Progress Note (short form) - Note Progress Note: Seen and examined in the ICU Remains on NRB, with desaturation with attempts to wean OOB to chair Active Medications Acetaminophen (Tylenol -) 650 mg PO Q6H PRN PRN Reason: FEVER Albuterol Sulfate (Ventolin Hfa Inhaler -) 1 puff IH Q4H PRN PRN Reason: SHORT OF BREATH/WHEEZING Last Admin: 02/02/20 21:30 Dose: 1 puff Documented by: Apixaban (Eliquis -) 5 mg PO BID [facility] Last Admin: 02/11/20 09:01 Dose: 5 mg Documented by: Ascorbic Acid (Vitamin C -) 500 mg PO BID [facility] Last Admin: 02/11/20 09:01 Dose: 500 mg Documented by: Aspirin (Asa -) 81 mg PO DAILY [facility] Last Admin: 02/11/20 09:01 Dose: 81 mg Documented by: Chlorhexidine Gluconate (Hibiclens For Decolonization -) 1 applic TP HS [facility] Last Admin: 02/10/20 22:30 Dose: 1 applic Documented by: Clotrimazole (Lotrimin 1% Cream -) 1 applic TP BID [facility] Last Admin: 02/11/20 09:01 Dose: 1 applic Documented by: Diazepam (Valium -) 2 mg PO Q8H PRN PRN Reason: ANXIETY Diphenhydramine HCl (Benadryl Injection -) 50 mg IVPUSH HS PRN PRN Reason: INSOMNIA Guaifenesin/Codeine Phosphate (Robitussin Ac -) 10 ml PO Q6H PRN PRN Reason: COUGH Last Admin: 02/10/20 10:06 Dose: 10 ml Documented by: Insulin Aspart (Novolog Vial Sliding Scale -) [address] [facility]; Protocol Last Admin: 02/11/20 11:17 Dose: 8 units Documented by: Insulin Detemir (Levemir Vial) 30 units SQ BID@0700,2200 [facility] Last Admin: 02/11/20 09:00 Dose: 30 unit Documented by: Methylprednisolone Sodium Succinate (Solu-Medrol -) 40 mg IVPUSH BID [facility] Last Admin: 02/11/20 09:01 Dose: 40 mg Documented by: Ondansetron HCl (Zofran Injection) 4 mg IVPUSH Q6H PRN PRN Reason: NAUSEA Last Admin: 02/05/20 16:00 Dose: 4 mg Documented by: Zinc Sulfate (Orazinc -) 220 mg PO BID [facility] Last Admin: 02/11/20 09:01 Dose: 220 mg Documented by: Vital Signs Period Temp Pulse Resp BP Sys/Miner Pulse Ox Last 24 Hr 98 F-98.1 F 70-93 18-28 121-149/87-96 96-100 Intake & Output 02/08/20 02/09/20 02/10/20 02/11/20 23:59 23:59 23:59 23:59 Intake Total 150 620 Output Total 1300 1875 Balance -1300 -1725 620 Exam: Awake, alert w/ mild SOB Pulm: diminished CV: RRR Abd: obese Ext: WWP, no edema CBC, BMP 02/11/20 05:55 02/11/20 05:55 ASSESSMENT AND PLAN: Acute Hypoxic Respiratory Failure COVID Pneumonia HTN DM - s/p tocilizumab infusion - empiric steroids - empiric anticoagulation - complete empiric antibiotics - received convalescent plasma - trend ferritin, LDH, CRP - titrate O2 to keep SpO2 >90% - BiPAP as needed - cough suppressants - DVT prophylaxis - continue ICU monitoring for tenuous respiratory status Boerem ACNP Pulm/CCM CCT: 35
[2020-02-11] MEDS: CHLORHEXIDINE GLUCONATE 4% CLEANSER FOR DECOLONIZATION TP SCH (21:08)
[2020-02-11] MEDS: guaiFENesin/CODEINE 10 ML UNIT-DOSE CUPS PO PRN (22:58)
[2020-02-12] MEDS: INSULIN (LEVEMIR) 100 UNITS/ML UNITS SQ SCH ×2 (06:21→21:23)
[2020-02-12] MEDS: INSULIN SLIDING SCALE (NOVOLOG) 1 VIAL SQ SCH ×3 (06:21→21:22)
--- NOTE | 2020-02-12 06:53 | PN ---
Progress Note (short form) - Note Progress Note: Seen and examined in the ICU NRB during day OOB to chair NIPPV overnight (AVAPS: 10 400 70 +10) States feels better Weaned steroids Afebrile Active Medications Acetaminophen (Tylenol -) 650 mg PO Q6H PRN PRN Reason: FEVER Albuterol Sulfate (Ventolin Hfa Inhaler -) 1 puff IH Q4H PRN PRN Reason: SHORT OF BREATH/WHEEZING Last Admin: 02/02/20 21:30 Dose: 1 puff Documented by: Apixaban (Eliquis -) 5 mg PO BID [facility] Last Admin: 02/11/20 21:08 Dose: 5 mg Documented by: Ascorbic Acid (Vitamin C -) 500 mg PO BID [facility] Last Admin: 02/11/20 21:08 Dose: 500 mg Documented by: Aspirin (Asa -) 81 mg PO DAILY [facility] Last Admin: 02/11/20 09:01 Dose: 81 mg Documented by: Chlorhexidine Gluconate (Hibiclens For Decolonization -) 1 applic TP HS [facility] Last Admin: 02/11/20 21:08 Dose: 1 applic Documented by: Clotrimazole (Lotrimin 1% Cream -) 1 applic TP BID [facility] Last Admin: 02/11/20 21:08 Dose: 1 applic Documented by: Diazepam (Valium -) 2 mg PO Q8H PRN PRN Reason: ANXIETY Last Admin: 02/11/20 22:58 Dose: 2 mg Documented by: Diphenhydramine HCl (Benadryl Injection -) 50 mg IVPUSH HS PRN PRN Reason: INSOMNIA Guaifenesin/Codeine Phosphate (Robitussin Ac -) 10 ml PO Q6H PRN PRN Reason: COUGH Last Admin: 02/11/20 22:58 Dose: 10 ml Documented by: Insulin Aspart (Novolog Vial Sliding Scale -) 1 vial SQ [facility]; Protocol Last Admin: 02/12/20 06:21 Dose: 4 units Documented by: Insulin Detemir (Levemir Vial) 30 units SQ BID@0700,2200 [facility] Last Admin: 02/12/20 06:21 Dose: 30 unit Documented by: Methylprednisolone Sodium Succinate (Solu-Medrol -) 20 mg IVPUSH BID [facility] Last Admin: 02/11/20 21:09 Dose: 20 mg Documented by: Ondansetron HCl (Zofran Injection) 4 mg IVPUSH Q6H PRN PRN Reason: NAUSEA Last Admin: 02/05/20 16:00 Dose: 4 mg Documented by: Zinc Sulfate (Orazinc -) 220 mg PO BID [facility] Last Admin: 02/11/20 21:09 Dose: 220 mg Documented by: Vital Signs Period Temp Pulse Resp BP Sys/Miner Pulse Ox Last 24 Hr 98 F-98.6 F 70-93 16-28 90-149/53-96 95-100 Intake & Output 02/09/20 02/10/20 02/11/20 02/12/20 23:59 23:59 23:59 23:59 Intake Total 150 620 150 Output Total 4845 270 400 Balance -6032 720 -139 -250 Exam: Neuro: intact Pulm: diminished CV: RRR Abd: benign Ext: WWP Lab and CXR holiday ASSESSMENT AND PLAN: Acute Hypoxic Respiratory Failure COVID Pneumonia HTN DM - s/p tocilizumab infusion - empiric steroids, weaned 02/10 - empiric anticoagulation - complete empiric antibiotics - received convalescent plasma - trend ferritin, LDH, CRP - titrate O2 to keep SpO2 >90% - BiPAP as needed - cough suppressants - DVT prophylaxis - continue ICU monitoring for tenuous respiratory status Boerem ACNP Pulm/CCM CCT: 35
[2020-02-12] MEDS: ASPIRIN 81 MG CHEWABLE TABLETS PO SCH (10:04)
[2020-02-12] MEDS: CLOTRIMAZOLE 1% CREAM 15 GM TUBE TP SCH ×2 (10:04→21:23)
[2020-02-12] MEDS: APIXABAN 5 MG TABLET PO SCH ×2 (10:04→21:23)
[2020-02-12] MEDS: ASCORBIC ACID 500 MG TABLET (FP) PO SCH ×2 (10:05→21:24)
[2020-02-12] MEDS: ZINC SULFATE 220 MG CAPSULE (FP) PO SCH ×2 (10:05→21:23)
[2020-02-12] MEDS: methylPREDNISolone NA SUCC 40 MG/1 ML VIAL IVPUSH SCH ×2 (10:05→21:23)
[2020-02-12] MEDS ORDERED: PT OWN MED DRAWER 7, Y5N ONE (21:06)
[2020-02-12] MEDS: CHLORHEXIDINE GLUCONATE 4% CLEANSER FOR DECOLONIZATION TP SCH (21:44)
[2020-02-13] MEDS: INSULIN SLIDING SCALE (NOVOLOG) 1 VIAL SQ SCH ×4 (07:10→22:28)
[2020-02-13 07:12] LABS: HEMATOCRIT 39.7 % (35.4-49); HEMOGLOBIN 12.5 GM/dL (11.7-16.9); MCH 23.8 pg (25.7-33.7); MCHC 31.4 g/dl (32.0-35.9); MEAN CELL VOLUME 75.9 fl (80-96); MEAN PLT VOLUME 9.3 fl (7.5-11.1); PLATELET COUNT 297 K/MM3 (134-434); RBC 5.23 M/mm3 (4.00-5.60); RDW 15.8 % (11.9-15.9); WHITE BLOOD COUNT 10.5 K/mm3 (4.0-10.0)
[2020-02-13] MEDS: INSULIN (LEVEMIR) 100 UNITS/ML UNITS SQ SCH ×2 (07:30→22:29)
[2020-02-13 07:33] LABS: ALBUMIN 2.9 g/dl (3.4-5.0); ALK PHOS 135 U/L (45-117); ANION GAP 5 MMOL/L (8-16); BILIRUBIN,TOTAL 0.6 mg/dL (0.2-1); BLOOD UREA NITROGEN 16.2 mg/dL (7-18); CALCIUM 8.7 mg/dL (8.5-10.1); CHLORIDE 96 mmol/L (98-107); CO2 35 mmol/L (21-32); GLUCOSE,RANDOM 313 mg/dL (74-106); LDH 506 U/L (87-246); MAGNESIUM 2.1 mg/dL (1.8-2.4); PHOSPHOROUS 4.5 mg/dL (2.5-4.9); POTASSIUM 4.6 mmol/L (3.5-5.1); SGOT/AST 13 U/L (15-37); SGPT/ALT 37 U/L (13-61); SODIUM 136 mmol/L (136-145); TOT PROT 6.2 g/dl (6.4-8.2)
[2020-02-13] MEDS: APIXABAN 5 MG TABLET PO SCH ×2 (10:02→22:28)
[2020-02-13] MEDS: methylPREDNISolone NA SUCC 40 MG/1 ML VIAL IVPUSH SCH ×2 (10:02→22:29)
[2020-02-13] MEDS: ASPIRIN 81 MG CHEWABLE TABLETS PO SCH (10:02)
[2020-02-13] MEDS: ASCORBIC ACID 500 MG TABLET (FP) PO SCH ×2 (10:02→22:29)
[2020-02-13] MEDS: ZINC SULFATE 220 MG CAPSULE (FP) PO SCH ×2 (10:03→22:29)
[2020-02-13] MEDS: CLOTRIMAZOLE 1% CREAM 15 GM TUBE TP SCH ×2 (10:03→22:29)
--- NOTE | 2020-02-13 10:15 | PN ---
Physical Exam: SUBJECTIVE: no acute events overnight, reports breathing is slightly better, able to eat, on AVAPS/NRB, urine output 1700cc OBJECTIVE: Vital Signs Period Temp Pulse Resp BP Sys/Miner Pulse Ox Last 24 Hr 97.5 F-98.6 F 72-94 18-20 106-131/58-94 94-100 exam per lead former Laboratory Results - last 24 hr 02/12/20 02/12/20 02/12/20 11:02 16:42 21:15 WBC RBC Hgb Hct MCV MCH MCHC RDW Plt Count MPV Sodium Potassium Chloride Carbon Dioxide Anion Gap BUN Creatinine Est GFR (CKD-EPI)AfAm Est GFR (CKD-EPI)NonAf POC Glucometer 204 342 275 Random Glucose Calcium Phosphorus Magnesium Ferritin Total Bilirubin AST ALT Alkaline Phosphatase LD Total C-Reactive Protein Total Protein Albumin 02/13/20 02/13/20 02/13/20 06:20 06:20 06:31 WBC 10.5 H RBC 5.23 Hgb 12.5 Hct 39.7 MCV 75.9 L MCH 23.8 L MCHC 31.4 L RDW 15.8 Plt Count 297 MPV 9.3 Sodium 136 Potassium 4.6 Chloride 96 L Carbon Dioxide 35 H Anion Gap 5 L BUN 16.2 Creatinine 1.0 Est GFR (CKD-EPI)AfAm 112.51 Est GFR (CKD-EPI)NonAf 97.08 POC Glucometer 291 Random Glucose 313 H Calcium 8.7 Phosphorus 4.5 Magnesium 2.1 Ferritin 501.4 H Total Bilirubin 0.6 AST 13 L ALT 37 Alkaline Phosphatase 135 H LD Total 506 H C-Reactive Protein < 0.3 Total Protein 6.2 L Albumin 2.9 L Active Medications Generic Name Dose Route Start Last Admin Trade Name Freq PRN Reason Stop Dose Admin Acetaminophen 650 mg 02/09/20 22:24 Tylenol - PO Q6H PRN FEVER Albuterol Sulfate 1 puff 01/29/20 03:14 02/02/20 21:30 Ventolin Hfa Inhaler - IH 1 puff Q4H PRN Administration SHORT OF BREATH/WHEEZING Apixaban 5 mg 01/28/20 10:00 02/13/20 10:02 Eliquis - PO 5 mg BID SARAH Administration Ascorbic Acid 500 mg 02/03/20 22:00 02/13/20 10:02 Vitamin C - PO 500 mg BID [facility]AH Administration Aspirin 81 mg 02/03/20 16:15 02/13/20 10:02 Asa - PO 81 mg DAILY [facility] Administration Chlorhexidine Gluconate 1 applic 01/25/20 22:00 02/12/20 21:44 Hibiclens For Decolonization - TP 1 applic HS [facility]AH Administration Clotrimazole 1 applic 02/01/20 10:00 02/13/20 10:03 Lotrimin 1% Cream - TP 1 applic BID [facility]AH Administration Diazepam 2 mg 02/10/20 20:21 02/11/20 22:58 Valium - PO 2 mg Q8H PRN Administration ANXIETY Diphenhydramine HCl 50 mg 01/30/20 22:00 Benadryl Injection - IVPUSH HS PRN INSOMNIA Guaifenesin/Codeine Phosphate 10 ml 02/08/20 12:52 02/11/20 22:58 Robitussin Ac - PO 10 ml Q6H PRN Administration COUGH Insulin Aspart 1 vial 01/26/20 11:00 02/13/20 07:10 Novolog Vial Sliding Scale - SQ 6 units ACHS SARAH Administration Protocol Insulin Detemir 30 units 02/10/20 22:00 02/13/20 07:30 Levemir Vial SQ 30 unit BID@0700,2200 [facility] Administration Methylprednisolone Sodium Succinate 10 mg 02/13/20 22:00 Solu-Medrol - IVPUSH 02/15/20 10:01 BID [facility]AH Ondansetron HCl 4 mg 02/04/20 23:07 02/05/20 16:00 Zofran Injection IVPUSH 4 mg Q6H PRN Administration NAUSEA Zinc Sulfate 220 mg 02/03/20 22:00 02/13/20 10:03 Orazinc - PO 220 mg BID [facility] Administration ASSESSMENT/PLAN: Pt is a 34 y/o male with HTN (not on meds) and newly diagnosed DM on admission, who presents with 3-4 days of increasing dyspnea and diarrhea. Two days ago he began having chest pain with coughing. 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 neuro/psych: -?COVID encephalitis, improved -CT head negative -lexapro 10mg daily cardio: -monitor BP, stable after tocolizumab -troponin, BNP negative pulm: #COVID -adjust between HFOT/NRB and BiPAP (night) as needed to keep O2 >90 -incentive spirometer -Legionella and step pneumo negative -sputum positive rare H. parainfluenzae endo: -A1C 10.5 -BGMs -insulin drip for BG 140-180 ID: -solu-medrol 10mg BID -s/p convalescent plasma 01/25 -s/p tocolizumab 01/29 -remdesivir -vitamin C -zinc -TB test negative -ID following DVT Ppx Eliquis 5mg BID FEN PO fluids monitor labs diabetic diet dispo: ICU monitoring FULL CODE Visit type - Emergency Visit Emergency Visit: Yes ED Registration Date: 01/25/20 Care time: The patient presented to the Emergency Department on the above date and was hospitalized for further evaluation of their emergent condition. - New Patient This patient is new to me today: No - Critical Care Critical Care patient: Yes Total Critical Care Time (in minutes): 35 Critical Care Statement: The care of this patient involved high complexity decision making to prevent further life threatening deterioration of the patient's condition and/or to evaluate & treat vital organ system(s) failure or risk of failure. ATTENDING PHYSICIAN STATEMENT I saw and evaluated the patient. I reviewed the resident's note and discussed the case with the resident. I agree with the resident's findings and plan as documented. SUBJECTIVE: OBJECTIVE: ASSESSMENT AND PLAN:
--- NOTE | 2020-02-13 10:37 | PN ---
Progress Note (short form) - Note Progress Note: no improvement still sob c/o weakness oxygen requirements unchanged Vital Signs Period Temp Pulse Resp BP Sys/Miner Pulse Ox Last 24 Hr 97.5 F-98.6 F 72-96 20-20 118-131/72-94 94-100 cor-rrr lungs decreased bs at bases abd soft,nt ext no edema CBC, BMP 02/13/20 06:20 02/13/20 06:20 Microbiology 01/27/20 09:30 Blood - Peripheral Venous Blood Culture - Final NO GROWTH AFTER 5 DAYS INCUBATION 01/27/20 09:30 Blood - Peripheral Venous Blood Culture - Final NO GROWTH AFTER 5 DAYS INCUBATION 01/25/20 16:29 Blood - Peripheral Venous Blood Culture - Final NO GROWTH AFTER 5 DAYS INCUBATION 01/25/20 16:29 Blood - Peripheral Venous Blood Culture - Final NO GROWTH AFTER 5 DAYS INCUBATION 01/27/20 14:15 Sputum - Expectorated Gram Stain - Final 01/27/20 14:15 Sputum - Expectorated Sputum Culture - Final Haemophilus Parainfluenzae Ii 01/27/20 09:20 Urine - Urine Clean Catch Legionella Antigen - Final 01/27/20 09:20 Urine - Urine Clean Catch Streptococcus pneumoniae Antigen (M - Final cxray unchanged quant gold negative a/p covid 19 positive hemophilus parainfluenza +sputum culture-s/p 10 days of antibioitics obesity- suspected osas HTN hypoxemic respiratory failure- persists s/p convalescent plasma s/p tocilizumab remains on NRB to consider 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
[2020-02-13] MEDS ORDERED: INSULIN REGULAR 100 UNITS in SODIUM CHLORIDE 99 ML IVPB SCH (11:15)
--- NOTE | 2020-02-13 12:56 | PN ---
Progress Note (short form) - Note Progress Note: Patient seen and examined in the ICU. Remains on 100% NRBM. Desaturates to 70% when trying to perform simple activities. Intake & Output 02/10/20 02/11/20 02/12/20 02/13/20 23:59 23:59 23:59 23:59 Intake Total 620 1400 800 Output Total 850 1700 950 Balance 620 -850 -300 -150 Last Vital Signs Temp Pulse Resp BP Pulse Ox 98.6 F 84 20 126/73 98 02/13/20 08:00 02/13/20 11:57 02/13/20 10:00 02/13/20 10:00 02/13/20 12:04 Active Medications Acetaminophen (Tylenol -) 650 mg PO Q6H PRN PRN Reason: FEVER Albuterol Sulfate (Ventolin Hfa Inhaler -) 1 puff IH Q4H PRN PRN Reason: SHORT OF BREATH/WHEEZING Last Admin: 02/02/20 21:30 Dose: 1 puff Documented by: Apixaban (Eliquis -) 5 mg PO BID [facility] Last Admin: 02/13/20 10:02 Dose: 5 mg Documented by: Ascorbic Acid (Vitamin C -) 500 mg PO BID [facility] Last Admin: 02/13/20 10:02 Dose: 500 mg Documented by: Aspirin (Asa -) 81 mg PO DAILY [facility] Last Admin: 02/13/20 10:02 Dose: 81 mg Documented by: Chlorhexidine Gluconate (Hibiclens For Decolonization -) 1 applic TP HS [facility] Last Admin: 02/12/20 21:44 Dose: 1 applic Documented by: Clotrimazole (Lotrimin 1% Cream -) 1 applic TP BID [facility] Last Admin: 02/13/20 10:03 Dose: 1 applic Documented by: Diphenhydramine HCl (Benadryl Injection -) 50 mg IVPUSH HS PRN PRN Reason: INSOMNIA Guaifenesin/Codeine Phosphate (Robitussin Ac -) 10 ml PO Q6H PRN PRN Reason: COUGH Last Admin: 02/11/20 22:58 Dose: 10 ml Documented by: Insulin Human Regular 100 (units/ Sodium Chloride) 100 mls @ 14.061 mls/hr IVPB TITR SAR[facility]; Protocol Insulin Aspart (Novolog Vial Sliding Scale -) 1 vial SQ ACHS [facility]; Protocol Last Admin: 02/13/20 07:10 Dose: 6 units Documented by: Insulin Detemir (Levemir Vial) 30 units SQ BID@0700,2200 [facility] Last Admin: 02/13/20 07:30 Dose: 30 unit Documented by: Methylprednisolone Sodium Succinate (Solu-Medrol -) 10 mg IVPUSH BID [facility] Stop: 02/15/20 10:01 Ondansetron HCl (Zofran Injection) 4 mg IVPUSH Q6H PRN PRN Reason: NAUSEA Last Admin: 02/05/20 16:00 Dose: 4 mg Documented by: Zinc Sulfate (Orazinc -) 220 mg PO BID [facility] Last Admin: 02/13/20 10:03 Dose: 220 mg Documented by: Gen: Tachypneic at rest Heart: RRR Lung: decreased breath sounds at the bases Abd: soft, nontender Ext: no edema CXR: bilateral infiltrates Laboratory Results - last 24 hr 02/12/20 02/12/20 02/13/20 16:42 21:15 06:20 WBC RBC Hgb Hct MCV MCH MCHC RDW Plt Count MPV Sodium 136 Potassium 4.6 Chloride 96 L Carbon Dioxide 35 H Anion Gap 5 L BUN 16.2 Creatinine 1.0 Est GFR (CKD-EPI)AfAm 112.51 Est GFR (CKD-EPI)NonAf 97.08 POC Glucometer 342 275 Random Glucose 313 H Calcium 8.7 Phosphorus 4.5 Magnesium 2.1 Ferritin 501.4 H Total Bilirubin 0.6 AST 13 L ALT 37 Alkaline Phosphatase 135 H LD Total 506 H C-Reactive Protein < 0.3 Total Protein 6.2 L Albumin 2.9 L 02/13/20 02/13/20 02/13/20 06:20 06:31 12:35 WBC 10.5 H RBC 5.23 Hgb 12.5 Hct 39.7 MCV 75.9 L MCH 23.8 L MCHC 31.4 L RDW 15.8 Plt Count 297 MPV 9.3 Sodium Potassium Chloride Carbon Dioxide Anion Gap BUN Creatinine Est GFR (CKD-EPI)AfAm Est GFR (CKD-EPI)NonAf POC Glucometer 291 405 Random Glucose Calcium Phosphorus Magnesium Ferritin Total Bilirubin AST ALT Alkaline Phosphatase LD Total C-Reactive Protein Total Protein Albumin ASSESSMENT AND PLAN: Acute Hypoxic Respiratory Failure COVID Pneumonia HTN DM - s/p tocilizumab infusion - Wean steroids - empiric anticoagulation - complete empiric antibiotics - received convalescent plasma - trend ferritin, LDH, CRP - titrate O2 to keep SpO2 >90% - BiPAP - DVT prophylaxis - continue ICU monitoring for tenuous respiratory status Due to severe illness and continued Hypoxemia, the patient was offered and agreed to Remdesivir infusion. Risks and benefits were explained in detail. Dr Cavazos
[2020-02-13] MEDS ORDERED: REMDESIVIR 200 MG in SODIUM CHLORIDE 210 ML IVPB ONE (14:27)
[2020-02-13] MEDS: guaiFENesin/CODEINE 10 ML UNIT-DOSE CUPS PO PRN (21:30)
[2020-02-13] MEDS: CHLORHEXIDINE GLUCONATE 4% CLEANSER FOR DECOLONIZATION TP SCH (22:28)
[2020-02-14 07:06] LABS: BLOOD UREA NITROGEN 16.1 mg/dL (7-18); CALCIUM 8.5 mg/dL (8.5-10.1); CREATININE 0.9 mg/dL (0.55-1.3); POTASSIUM 4.4 mmol/L (3.5-5.1)
[2020-02-14] MEDS: guaiFENesin/CODEINE 10 ML UNIT-DOSE CUPS PO PRN (08:20)
[2020-02-14] MEDS: INSULIN SLIDING SCALE (NOVOLOG) 1 VIAL SQ SCH ×3 (08:23→22:06)
[2020-02-14] MEDS: INSULIN (LEVEMIR) 100 UNITS/ML UNITS SQ SCH ×2 (08:24→22:06)
[2020-02-14 09:02] LABS: BILIRUBIN,DIRECT 0.2 mg/dL (0.0-0.2); TOT PROT 6.2 g/dl (6.4-8.2)
[2020-02-14] MEDS: ZINC SULFATE 220 MG CAPSULE (FP) PO SCH ×2 (10:29→22:07)
[2020-02-14] MEDS: APIXABAN 5 MG TABLET PO SCH ×2 (10:29→22:06)
[2020-02-14] MEDS: ASPIRIN 81 MG CHEWABLE TABLETS PO SCH (10:30)
[2020-02-14] MEDS: ASCORBIC ACID 500 MG TABLET (FP) PO SCH ×2 (10:30→22:07)
[2020-02-14] MEDS: methylPREDNISolone NA SUCC 40 MG/1 ML VIAL IVPUSH SCH ×2 (10:30→22:07)
--- NOTE | 2020-02-14 10:45 | PN ---
Physical Exam: SUBJECTIVE: no acute events overnight, pt used BiPAP overnight, urine output 2450, feeling about the same as yesterday, on NRB OBJECTIVE: Vital Signs Period Temp Pulse Resp BP Sys/Miner Pulse Ox Last 24 Hr 97.6 F-98.6 F 69-92 20-26 122-156/66-85 95-996 exam per student support advisor Laboratory Results - last 24 hr 02/13/20 02/13/20 02/13/20 12:35 18:05 21:20 Sodium Potassium Chloride Carbon Dioxide Anion Gap BUN Creatinine Est GFR (CKD-EPI)AfAm Est GFR (CKD-EPI)NonAf POC Glucometer 405 288 253 Random Glucose Calcium Total Bilirubin Direct Bilirubin AST ALT Alkaline Phosphatase Total Protein Albumin 02/14/20 06:15 Sodium 138 Potassium 4.4 Chloride 96 L Carbon Dioxide 37 H Anion Gap 5 L BUN 16.1 Creatinine 0.9 Est GFR (CKD-EPI)AfAm 127.80 Est GFR (CKD-EPI)NonAf 110.27 POC Glucometer Random Glucose 162 H Calcium 8.5 Total Bilirubin 1.0 Direct Bilirubin 0.2 AST 15 ALT 40 Alkaline Phosphatase 113 Total Protein 6.2 L Albumin 3.0 L Active Medications Generic Name Dose Route Start Last Admin Trade Name Freq PRN Reason Stop Dose Admin Acetaminophen 650 mg 02/09/20 22:24 Tylenol - PO Q6H PRN FEVER Albuterol Sulfate 1 puff 01/29/20 03:14 02/02/20 21:30 Ventolin Hfa Inhaler - IH 1 puff Q4H PRN Administration SHORT OF BREATH/WHEEZING Apixaban 5 mg 01/28/20 10:00 02/14/20 10:29 Eliquis - PO 5 mg BID [facility] Administration Ascorbic Acid 500 mg 02/03/20 22:00 02/14/20 10:30 Vitamin C - PO 500 mg BID [facility] Administration Aspirin 81 mg 02/03/20 16:15 02/14/20 10:30 Asa - PO 81 mg DAILY [facility] Administration Chlorhexidine Gluconate 1 applic 01/25/20 22:00 02/13/20 22:28 Hibiclens For Decolonization - TP 1 applic HS [facility] Administration Clotrimazole 1 applic 02/01/20 10:00 02/13/20 22:29 Lotrimin 1% Cream - TP 1 applic BID [facility] Administration Diphenhydramine HCl 50 mg 01/30/20 22:00 Benadryl Injection - IVPUSH HS PRN INSOMNIA Guaifenesin/Codeine Phosphate 10 ml 02/08/20 12:52 02/14/20 08:20 Robitussin Ac - PO 10 ml Q6H PRN Administration COUGH Insulin Human Regular 100 100 mls @ 14.061 mls/hr 02/13/20 11:15 02/14/20 10:29 units/ Sodium Chloride IVPB Not Given TITR SARAH Protocol 0.1 UNITS/KG/HR Non-Formulary Medication 100 250 mls @ 270 mls/hr 02/14/20 14:27 mg/ Sodium Chloride IVPB 02/17/20 10:56 DAILY SARAH Insulin Aspart 1 vial 01/26/20 11:00 02/14/20 08:23 Novolog Vial Sliding Scale - SQ 2 units ACHS [facility] Administration Protocol Insulin Detemir 30 units 02/10/20 22:00 02/14/20 08:24 Levemir Vial SQ 30 unit BID@0700,2200 [facility] Administration Methylprednisolone Sodium Succinate 10 mg 02/13/20 22:00 02/14/20 10:30 Solu-Medrol - IVPUSH 02/15/20 10:01 40 mg BID SARAH Administration Ondansetron HCl 4 mg 02/04/20 23:07 02/05/20 16:00 Zofran Injection IVPUSH 4 mg Q6H PRN Administration NAUSEA Zinc Sulfate 220 mg 02/03/20 22:00 02/14/20 10:29 Orazinc - PO 220 mg BID [facility] Administration ASSESSMENT/PLAN: Pt is a 34 y/o male with HTN (not on meds) and newly diagnosed DM on admission, who presents with 3-4 days of increasing dyspnea and diarrhea. Two days ago he began having chest pain with coughing. 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 neuro/psych: -?COVID encephalitis, improved -CT head negative -lexapro 10mg daily -PT cardio: -troponin, BNP negative pulm: #COVID -adjust between NRB and BiPAP (night) as needed to keep O2 >90 -incentive spirometer -Legionella and step pneumo negative -sputum positive rare H. parainfluenzae endo: -A1C 10.5 -BGMs -goal BG 140-180, consider insulin drip if needed, discussed with pt yesterday but levels have improved ID: -solu-medrol 10mg BID -s/p convalescent plasma 01/25 -s/p tocolizumab 01/29 -remdesivir -vitamin C -vitamin D -zinc -TB test negative -ID following DVT Ppx Eliquis 5mg BID FEN PO fluids monitor labs diabetic diet dispo: ICU monitoring FULL CODE Visit type - Emergency Visit Emergency Visit: Yes ED Registration Date: 01/25/20 Care time: The patient presented to the Emergency Department on the above date and was hospitalized for further evaluation of their emergent condition. - New Patient This patient is new to me today: No - Critical Care Critical Care patient: Yes Total Critical Care Time (in minutes): 40 Critical Care Statement: The care of this patient involved high complexity decision making to prevent further life threatening deterioration of the patient's condition and/or to evaluate & treat vital organ system(s) failure or risk of failure. ATTENDING PHYSICIAN STATEMENT I saw and evaluated the patient. I reviewed the resident's note and discussed the case with the resident. I agree with the resident's findings and plan as documented. SUBJECTIVE: OBJECTIVE: ASSESSMENT AND PLAN:
--- NOTE | 2020-02-14 11:30 | PN ---
Progress Note (short form) - Note Progress Note: Patient seen and examined in the ICU. Remains on 100% NRBM. Mild pleuritic CP persists. Intake & Output 02/11/20 02/12/20 02/13/20 02/14/20 23:59 23:59 23:59 23:59 Intake Total 1400 1830 150 Output Total 850 1700 2450 Balance -850 -300 -620 150 Last Vital Signs Temp Pulse Resp BP Pulse Ox 97.6 F 69 20 126/66 996 H 02/14/20 08:00 02/14/20 08:10 02/14/20 08:00 02/14/20 08:00 02/14/20 09:00 Active Medications Acetaminophen (Tylenol -) 650 mg PO Q6H PRN PRN Reason: FEVER Albuterol Sulfate (Ventolin Hfa Inhaler -) 1 puff IH Q4H PRN PRN Reason: SHORT OF BREATH/WHEEZING Last Admin: 02/02/20 21:30 Dose: 1 puff Documented by: Apixaban (Eliquis -) 5 mg PO BID [facility] Last Admin: 02/14/20 10:29 Dose: 5 mg Documented by: Ascorbic Acid (Vitamin C -) 500 mg PO BID [facility] Last Admin: 02/14/20 10:30 Dose: 500 mg Documented by: Aspirin (Asa -) 81 mg PO DAILY [facility] Last Admin: 02/14/20 10:30 Dose: 81 mg Documented by: Chlorhexidine Gluconate (Hibiclens For Decolonization -) 1 applic TP HS [facility] Last Admin: 02/13/20 22:28 Dose: 1 applic Documented by: Clotrimazole (Lotrimin 1% Cream -) 1 applic TP BID [facility] Last Admin: 02/13/20 22:29 Dose: 1 applic Documented by: Diphenhydramine HCl (Benadryl Injection -) 50 mg IVPUSH HS PRN PRN Reason: INSOMNIA Guaifenesin/Codeine Phosphate (Robitussin Ac -) 10 ml PO Q6H PRN PRN Reason: COUGH Last Admin: 02/14/20 08:20 Dose: 10 ml Documented by: Insulin Human Regular 100 (units/ Sodium Chloride) 100 mls @ 14.061 mls/hr IVPB TITR [facility]; Protocol Last Admin: 02/14/20 10:29 Dose: Not Given Documented by: Non-Formulary Medication 100 (mg/ Sodium Chloride) 250 mls @ 270 mls/hr IVPB DAILY [facility] Stop: 02/17/20 10:56 Insulin Aspart (Novolog Vial Sliding Scale -) 1 vial SQ ACHS [facility]; Protocol Last Admin: 02/14/20 08:23 Dose: 2 units Documented by: Insulin Detemir (Levemir Vial) 30 units SQ BID@0700,2200 [facility] Last Admin: 02/14/20 08:24 Dose: 30 unit Documented by: Methylprednisolone Sodium Succinate (Solu-Medrol -) 10 mg IVPUSH BID [facility] Stop: 02/15/20 10:01 Last Admin: 02/14/20 10:30 Dose: 40 mg Documented by: Ondansetron HCl (Zofran Injection) 4 mg IVPUSH Q6H PRN PRN Reason: NAUSEA Last Admin: 02/05/20 16:00 Dose: 4 mg Documented by: Zinc Sulfate (Orazinc -) 220 mg PO BID [facility] Last Admin: 02/14/20 10:29 Dose: 220 mg Documented by: Gen: Mildly Tachypneic at rest Heart: RRR Lung: decreased breath sounds at the bases Abd: soft, nontender Ext: no edema Laboratory Results - last 24 hr 02/13/20 02/13/20 02/13/20 12:35 18:05 21:20 Sodium Potassium Chloride Carbon Dioxide Anion Gap BUN Creatinine Est GFR (CKD-EPI)AfAm Est GFR (CKD-EPI)NonAf POC Glucometer 405 288 253 Random Glucose Calcium Total Bilirubin Direct Bilirubin AST ALT Alkaline Phosphatase Total Protein Albumin 02/14/20 06:15 Sodium 138 Potassium 4.4 Chloride 96 L Carbon Dioxide 37 H Anion Gap 5 L BUN 16.1 Creatinine 0.9 Est GFR (CKD-EPI)AfAm 127.80 Est GFR (CKD-EPI)NonAf 110.27 POC Glucometer Random Glucose 162 H Calcium 8.5 Total Bilirubin 1.0 Direct Bilirubin 0.2 AST 15 ALT 40 Alkaline Phosphatase 113 Total Protein 6.2 L Albumin 3.0 L ASSESSMENT AND PLAN: Acute Hypoxic Respiratory Failure COVID Pneumonia HTN DM - s/p tocilizumab infusion - Wean steroids - empiric anticoagulation - complete empiric antibiotics - received convalescent plasma - trend ferritin, LDH, CRP - titrate O2 to keep SpO2 >90% - BiPAP - DVT prophylaxis - continue ICU monitoring for tenuous respiratory status Due to severe illness and continued Hypoxemia, the patient was offered and agree d to Remdesivir infusion. Risks and benefits were explained in detail. Dr Cavazos
[2020-02-14] MEDS: CLOTRIMAZOLE 1% CREAM 15 GM TUBE TP SCH ×2 (11:57→22:06)
[2020-02-14] MEDS ORDERED: CHOLECALCIFEROL (VIT D3) 400 UNIT (10 MCG) TABLET PO SCH (12:15)
[2020-02-14] MEDS ORDERED: MELATONIN 5 MG TABLETS PO PRN ×2 (12:17→19:42)
--- NOTE | 2020-02-14 13:51 | PN ---
Progress Note (short form) - Note Progress Note: feels improved a bit started remdisivir yesterday remains on NRB 100% Vital Signs Period Temp Pulse Resp BP Sys/Miner Pulse Ox Last 24 Hr 97.6 F-98.6 F 69-92 20-26 111-156/66-85 95-996 cor-rrr lungs decreased bs at bases abd soft,nt ext no edema CBC, BMP 02/13/20 06:20 02/14/20 06:15 Microbiology 01/27/20 09:30 Blood - Peripheral Venous Blood Culture - Final NO GROWTH AFTER 5 DAYS INCUBATION 01/27/20 09:30 Blood - Peripheral Venous Blood Culture - Final NO GROWTH AFTER 5 DAYS INCUBATION 01/25/20 16:29 Blood - Peripheral Venous Blood Culture - Final NO GROWTH AFTER 5 DAYS INCUBATION 01/25/20 16:29 Blood - Peripheral Venous Blood Culture - Final NO GROWTH AFTER 5 DAYS INCUBATION 01/27/20 14:15 Sputum - Expectorated Gram Stain - Final 01/27/20 14:15 Sputum - Expectorated Sputum Culture - Final Haemophilus Parainfluenzae Ii 01/27/20 09:20 Urine - Urine Clean Catch Legionella Antigen - Final 01/27/20 09:20 Urine - Urine Clean Catch Streptococcus pneumoniae Antigen (M - Final cxray unchanged quant gold negative a/p covid 19 positive hemophilus parainfluenza +sputum culture-s/p 10 days of antibioitics obesity- suspected osas HTN hypoxemic respiratory failure- persists s/p convalescent plasma s/p tocilizumab remains on NRB remdisivir day #1 Problem List - Problems (1) Acute hypoxemic respiratory failure Code(s): J96.01 - ACUTE RESPIRATORY FAILURE WITH HYPOXIA (2) COVID-19 Code(s): U07.1 - COVID POSITIVE (3) HTN (hypertension) Code(s): I10 - ESSENTIAL (PRIMARY) HYPERTENSION (4) Obesity Code(s): E66.9 - OBESITY, UNSPECIFIED (5) REYNALDO (obstructive sleep apnea) Code(s): G47.33 - OBSTRUCTIVE SLEEP APNEA (ADULT) (PEDIATRIC)
[2020-02-14] MEDS ORDERED: REMDESIVIR 100 MG in SODIUM CHLORIDE 230 ML IVPB SCH (14:27)
[2020-02-14] MEDS ORDERED: PT OWN MED DRAWER 7, Y5N ONE (15:11)
[2020-02-14] MEDS ORDERED: INSULIN REGULAR 100 UNITS in SODIUM CHLORIDE 99 ML IVPB SCH (19:42)
[2020-02-14] MEDS ORDERED: ONDANSETRON 4 MG/2 ML VIAL IVPUSH PRN (19:42)
[2020-02-14] MEDS ORDERED: ALBUTEROL SO4 HFA INHALER IH PRN (19:42)
[2020-02-14] MEDS ORDERED: CHLORHEXIDINE GLUCONATE 4% CLEANSER FOR DECOLONIZATION TP SCH (22:00)
[2020-02-15] MEDS: INSULIN (LEVEMIR) 100 UNITS/ML UNITS SQ SCH ×2 (06:36→23:21)
[2020-02-15] MEDS: INSULIN SLIDING SCALE (NOVOLOG) 1 VIAL SQ SCH ×4 (06:36→23:20)
--- NOTE | 2020-02-15 07:02 | PN ---
Progress Note, Physician History of Present Illness: PULMONARY AWAKE,OOB -CHAIR ON 100%NRB,MILDLT TACHYPNEIC O2 SAT 99% - Current Medication List Current Medications: Active Medications Acetaminophen (Tylenol -) 650 mg PO Q6H PRN PRN Reason: FEVER Albuterol Sulfate (Ventolin Hfa Inhaler -) 1 puff IH Q4H PRN PRN Reason: SHORT OF BREATH/WHEEZING Apixaban (Eliquis -) 5 mg PO BID [facility] Last Admin: 02/14/20 22:06 Dose: 5 mg Documented by: Ascorbic Acid (Vitamin C -) 500 mg PO BID [facility] Last Admin: 02/14/20 22:07 Dose: 500 mg Documented by: Aspirin (Asa -) 81 mg PO DAILY [facility] Cholecalciferol (Vitamin D3 -) 400 unit PO DAILY [facility] Clotrimazole (Lotrimin 1% Cream -) 1 applic TP BID [facility] Last Admin: 02/14/20 22:06 Dose: 1 applic Documented by: Diphenhydramine HCl (Benadryl Injection -) 50 mg IVPUSH HS PRN PRN Reason: INSOMNIA Guaifenesin/Codeine Phosphate (Robitussin Ac -) 10 ml PO Q6H PRN PRN Reason: COUGH Non-Formulary Medication 100 (mg/ Sodium Chloride) 250 mls @ 270 mls/hr IVPB DAILY [facility] Stop: 02/16/20 10:56 Insulin Aspart (Novolog Vial Sliding Scale -) 1 vial SQ ACHS [facility]; Protocol Last Admin: 02/15/20 06:36 Dose: 4 units Documented by: Insulin Detemir (Levemir Vial) 30 units SQ BID@0700,2200 [facility] Last Admin: 02/15/20 06:36 Dose: 30 units Documented by: Melatonin (Melatonin) 5 mg PO HS PRN PRN Reason: INSOMNIA Methylprednisolone Sodium Succinate (Solu-Medrol -) 10 mg IVPUSH BID [facility] Stop: 02/15/20 10:01 Last Admin: 02/14/20 22:07 Dose: 10 mg Documented by: Ondansetron HCl (Zofran Injection) 4 mg IVPUSH Q6H PRN PRN Reason: NAUSEA Zinc Sulfate (Orazinc -) 220 mg PO BID [facility] Last Admin: 02/14/20 22:07 Dose: 220 mg Documented by: - Objective Vital Signs: Vital Signs Temperature 97.8 F 05/20/20 00:07 Pulse Rate 72 02/15/20 04:07 Respiratory Rate 20 02/15/20 04:07 Blood Pressure 107/49 L 02/15/20 04:07 O2 Sat by Pulse Oximetry (%) 97 02/15/20 05:47 Constitutional: Yes: Calm, Obese Eyes: Yes: WNL HENT: Yes: WNL Neck: Yes: WNL Cardiovascular: Yes: Regular Rate and Rhythm, S1, S2 Respiratory: Yes: Diminished Gastrointestinal: Yes: Normal Bowel Sounds, Soft Extremities: Yes: WNL Edema: No Labs: CBC, BMP Laboratory Tests 02/15/20 02/15/20 05:40 05:40 D-Dimer 5615 H Ferritin 483.7 H LD Total 462 H C-Reactive Protein < 0.3 Problem List - Problems (1) Acute hypoxemic respiratory failure Code(s): J96.01 - ACUTE RESPIRATORY FAILURE WITH HYPOXIA (2) COVID-19 Code(s): U07.1 - COVID POSITIVE (3) HTN (hypertension) Code(s): I10 - ESSENTIAL (PRIMARY) HYPERTENSION (4) REYNALDO (obstructive sleep apnea) Code(s): G47.33 - OBSTRUCTIVE SLEEP APNEA (ADULT) (PEDIATRIC) (5) Obesity Code(s): E66.9 - OBESITY, UNSPECIFIED Assessment/Plan ASSESSMENT AND PLAN: Acute Hypoxic Respiratory Failure COVID Pneumonia HTN DM - s/p tocilizumab infusion - medrol - empiric anticoagulation - complete empiric antibiotics - received convalescent plasma - trend ferritin, LDH, CRP - titrate O2 to keep SpO2 >90% - BiPAP - DVT prophylaxis - continue Remdesivir infusion. Risks and benefits were explained in detail. DR MCKEON
[2020-02-15 07:38] LABS: ALBUMIN 2.8 g/dl (3.4-5.0); ALK PHOS 124 U/L (45-117); ANION GAP 5 MMOL/L (8-16); BILIRUBIN,TOTAL 1.2 mg/dL (0.2-1); BLOOD UREA NITROGEN 14.6 mg/dL (7-18); CALCIUM 8.5 mg/dL (8.5-10.1); CHLORIDE 97 mmol/L (98-107); CO2 35 mmol/L (21-32); CREATININE 0.8 mg/dL (0.55-1.3); GLUCOSE,RANDOM 248 mg/dL (74-106); POTASSIUM 4.5 mmol/L (3.5-5.1); SGOT/AST 14 U/L (15-37); SGPT/ALT 39 U/L (13-61); SODIUM 136 mmol/L (136-145); TOT PROT 5.9 g/dl (6.4-8.2)
[2020-02-15 09:01] LABS: HEMATOCRIT 37.6 % (35.4-49); MCH 24.1 pg (25.7-33.7); MCHC 31.9 g/dl (32.0-35.9); MEAN CELL VOLUME 75.5 fl (80-96); MEAN PLT VOLUME 9.6 fl (7.5-11.1); PLATELET COUNT 273 K/MM3 (134-434); RBC 4.97 M/mm3 (4.00-5.60); RDW 16.1 % (11.9-15.9); WHITE BLOOD COUNT 8.6 K/mm3 (4.0-10.0)
[2020-02-15 09:23] LABS: LDH 462 U/L (87-246)
[2020-02-15] MEDS ORDERED: CHOLECALCIFEROL (VIT D3) 400 UNIT (10 MCG) TABLET PO SCH (10:00)
--- NOTE | 2020-02-15 10:57 | PN ---
Progress Note (short form) - Note Progress Note: feels improved a bit day #2 remdesivir remains on NRB 100% Vital Signs Period Temp Pulse Resp BP Sys/Miner Pulse Ox Last 24 Hr 97.3 F-98.2 F 70-85 20-22 107-129/49-92 95-99 cor-rrr lungs decreased bs at bases abd soft,nt ext no edema CBC, BMP 02/15/20 05:40 02/15/20 05:40 Microbiology 01/27/20 09:30 Blood - Peripheral Venous Blood Culture - Final NO GROWTH AFTER 5 DAYS INCUBATION 01/27/20 09:30 Blood - Peripheral Venous Blood Culture - Final NO GROWTH AFTER 5 DAYS INCUBATION 01/25/20 16:29 Blood - Peripheral Venous Blood Culture - Final NO GROWTH AFTER 5 DAYS INCUBATION 01/25/20 16:29 Blood - Peripheral Venous Blood Culture - Final NO GROWTH AFTER 5 DAYS INCUBATION 01/27/20 14:15 Sputum - Expectorated Gram Stain - Final 01/27/20 14:15 Sputum - Expectorated Sputum Culture - Final Haemophilus Parainfluenzae Ii 01/27/20 09:20 Urine - Urine Clean Catch Legionella Antigen - Final 01/27/20 09:20 Urine - Urine Clean Catch Streptococcus pneumoniae Antigen (M - Final quant gold negative a/p covid 19 positive hemophilus parainfluenza +sputum culture-s/p 10 days of antibioitics obesity- suspected osas HTN hypoxemic respiratory failure- persists s/p convalescent plasma s/p tocilizumab remains on NRB remdisivir day #2 Problem List - Problems (1) Acute hypoxemic respiratory failure Code(s): J96.01 - ACUTE RESPIRATORY FAILURE WITH HYPOXIA (2) COVID-19 Code(s): U07.1 - COVID POSITIVE (3) HTN (hypertension) Code(s): I10 - ESSENTIAL (PRIMARY) HYPERTENSION (4) Obesity Code(s): E66.9 - OBESITY, UNSPECIFIED (5) REYNALDO (obstructive sleep apnea) Code(s): G47.33 - OBSTRUCTIVE SLEEP APNEA (ADULT) (PEDIATRIC)
[2020-02-15] MEDS ORDERED: PT OWN MED DRAWER 7, Y5N ONE (11:01)
[2020-02-15] MEDS: methylPREDNISolone NA SUCC 40 MG/1 ML VIAL IVPUSH SCH (11:07)
[2020-02-15] MEDS: ASCORBIC ACID 500 MG TABLET (FP) PO SCH ×2 (11:07→23:23)
[2020-02-15] MEDS: ASPIRIN 81 MG CHEWABLE TABLETS PO SCH (11:07)
[2020-02-15] MEDS: REMDESIVIR 100 MG in SODIUM CHLORIDE 230 ML IVPB SCH (11:08)
[2020-02-15] MEDS: ZINC SULFATE 220 MG CAPSULE (FP) PO SCH ×2 (11:08→23:23)
[2020-02-15] MEDS: CLOTRIMAZOLE 1% CREAM 15 GM TUBE TP SCH ×2 (11:08→23:22)
[2020-02-15] MEDS: APIXABAN 5 MG TABLET PO SCH ×2 (11:09→23:22)
[2020-02-15] MEDS: guaiFENesin/CODEINE 10 ML UNIT-DOSE CUPS PO PRN ×2 (11:20→18:45)
--- NOTE | 2020-02-15 19:17 | PN ---
Physical Exam: SUBJECTIVE: Patient seen and examined. Pt on BIPAP and NRB on and off. Pt requires it with any ambulation, denies cp, sob. OBJECTIVE: Vital Signs Period Temp Pulse Resp BP Sys/Miner Pulse Ox Last 24 Hr 97.2 F-98.3 F 70-96 20-20 106-127/49-75 96-99 GENERAL: The patient is awake, alert, and fully oriented, in no acute distress. LUNGS: No ISO steth in room. ABDOMEN: Soft, nontender, nondistended. EXTREMITIES: 2+ pulses, warm, well-perfused, no edema. Laboratory Results - last 24 hr 02/14/20 02/15/20 02/15/20 21:56 05:40 05:40 WBC 8.6 RBC 4.97 Hgb 12.0 Hct 37.6 MCV 75.5 L MCH 24.1 L MCHC 31.9 L RDW 16.1 H Plt Count 273 MPV 9.6 D-Dimer Sodium 136 Potassium 4.5 Chloride 97 L Carbon Dioxide 35 H Anion Gap 5 L BUN 14.6 Creatinine 0.8 Est GFR (CKD-EPI)AfAm 134.14 Est GFR (CKD-EPI)NonAf 115.74 POC Glucometer 334 Random Glucose 248 H Calcium 8.5 Ferritin 483.7 H Total Bilirubin 1.2 H AST 14 L ALT 39 Alkaline Phosphatase 124 H LD Total 462 H C-Reactive Protein < 0.3 Total Protein 5.9 L Albumin 2.8 L 02/15/20 02/15/20 05:40 16:03 WBC RBC Hgb Hct MCV MCH MCHC RDW Plt Count MPV D-Dimer 5615 H Sodium Potassium Chloride Carbon Dioxide Anion Gap BUN Creatinine Est GFR (CKD-EPI)AfAm Est GFR (CKD-EPI)NonAf POC Glucometer 308 Random Glucose Calcium Ferritin Total Bilirubin AST ALT Alkaline Phosphatase LD Total C-Reactive Protein Total Protein Albumin Active Medications Generic Name Dose Route Start Last Admin Trade Name Freq PRN Reason Stop Dose Admin Acetaminophen 650 mg 02/14/20 19:42 Tylenol - PO Q6H PRN FEVER Albuterol Sulfate 1 puff 02/14/20 19:42 Ventolin Hfa Inhaler - IH Q4H PRN SHORT OF BREATH/WHEEZING Apixaban 5 mg 02/14/20 22:00 02/15/20 11:09 Eliquis - PO 5 mg BID SARAH Administration Ascorbic Acid 500 mg 02/14/20 22:00 02/15/20 11:07 Vitamin C - PO 500 mg BID SARAH Administration Aspirin 81 mg 02/15/20 10:00 02/15/20 11:07 Asa - PO 81 mg DAILY SARAH Administration Cholecalciferol 2,000 unit 02/15/20 11:53 Vitamin D3 - PO DAILY SARAH Clotrimazole 1 applic 02/14/20 22:00 02/15/20 11:08 Lotrimin 1% Cream - TP 1 applic BID SARAH Administration Guaifenesin/Codeine Phosphate 10 ml 02/14/20 19:42 02/15/20 11:20 Robitussin Ac - PO 10 ml Q6H PRN Administration COUGH Non-Formulary Medication 100 250 mls @ 270 mls/hr 02/15/20 10:00 02/15/20 11:08 mg/ Sodium Chloride IVPB 02/16/20 10:56 270 mls/hr DAILY SARAH Administration Insulin Aspart 1 vial 02/14/20 22:00 02/15/20 16:32 Novolog Vial Sliding Scale - SQ 8 units ACHS SARAH Administration Protocol Insulin Detemir 35 units 02/15/20 08:06 Levemir Vial SQ BID@0700,2200 SARAH Melatonin 5 mg 02/14/20 19:42 Melatonin PO HS PRN INSOMNIA Ondansetron HCl 4 mg 02/14/20 19:42 Zofran Injection IVPUSH Q6H PRN NAUSEA Zinc Sulfate 220 mg 02/14/20 22:00 02/15/20 11:08 Orazinc - PO 220 mg BID SARAH Administration ASSESSMENT/PLAN: Pt is a 34 y/o male with HTN (not on meds) and newly diagnosed DM on admission, who presents with 3-4 days of increasing dyspnea and diarrhea. Two days ago he began having chest pain with coughing. 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 #COVID 19 Pneumonia -?COVID encephalitis, improved -CT head negative -lexapro 10mg daily -PT - adjust between NRB and BiPAP (night) as needed to keep O2 >90 -incentive spirometer -Legionella and step pneumo negative -sputum positive rare H. parainfluenzae - s/p abx X 10 days -solu-medrol 10mg BID -s/p convalescent plasma 01/25 -s/p tocolizumab 01/29 -remdesivir another dose given today -vitamin C -vitamin D -zinc, full AC 5 BID eliquis -TB test negative -ID following #Newly diagnosed DM -A1C 10.5 -BGMs -goal BG 140-180, consider insulin drip if needed, discussed with pt yesterday but levels have improved - on steroids likely worsening it DVT Ppx Eliquis 5mg BID FEN PO fluids monitor labs diabetic diet dispo: ICU monitoring Visit type - Emergency Visit Emergency Visit: Yes ED Registration Date: 01/25/20 Care time: The patient presented to the Emergency Department on the above date and was hospitalized for further evaluation of their emergent condition. - New Patient This patient is new to me today: No - Critical Care Critical Care patient: No - Discharge Referral Referred to [facility] Med P.C.: No ATTENDING PHYSICIAN STATEMENT I saw and evaluated the patient. I reviewed the resident's note and discussed the case with the resident. I agree with the resident's findings and plan as documented. SUBJECTIVE: OBJECTIVE: ASSESSMENT AND PLAN:
--- NOTE | 2020-02-15 19:45 | PN ---
Teaching Attending Note Name of Resident: Mynor Curry ATTENDING PHYSICIAN STATEMENT I saw and evaluated the patient. I reviewed the resident's note and discussed the case with the resident. I agree with the resident's findings and plan as documented. SUBJECTIVE: remains on NR OBJECTIVE: Vital Signs Temperature 98.0 F 02/15/20 18:00 Pulse Rate 80 02/15/20 18:00 Respiratory Rate 20 02/15/20 18:00 Blood Pressure 130/71 02/15/20 18:00 O2 Sat by Pulse Oximetry (%) 99 02/15/20 10:00 Pe: per resident's note CBCD WBC 8.6 K/mm3 (4.0-10.0) 02/15/20 05:40 RBC 4.97 M/mm3 (4.00-5.60) 02/15/20 05:40 Hgb 12.0 GM/dL (11.7-16.9) 02/15/20 05:40 Hct 37.6 % (35.4-49) 02/15/20 05:40 MCV 75.5 fl (80-96) L 02/15/20 05:40 MCHC 31.9 g/dl (32.0-35.9) L 02/15/20 05:40 RDW 16.1 % (11.9-15.9) H 02/15/20 05:40 Plt Count 273 K/MM3 (134-434) 02/15/20 05:40 MPV 9.6 fl (7.5-11.1) 02/15/20 05:40 CMP Sodium 136 mmol/L (136-145) 02/15/20 05:40 Potassium 4.5 mmol/L (3.5-5.1) 02/15/20 05:40 Chloride 97 mmol/L (98-107) L 02/15/20 05:40 Carbon Dioxide 35 mmol/L (21-32) H 02/15/20 05:40 Anion Gap 5 MMOL/L (8-16) L 02/15/20 05:40 BUN 14.6 mg/dL (7-18) 02/15/20 05:40 Creatinine 0.8 mg/dL (0.55-1.3) 02/15/20 05:40 Random Glucose 248 mg/dL (74-106) H 02/15/20 05:40 Calcium 8.5 mg/dL (8.5-10.1) 02/15/20 05:40 Total Bilirubin 1.2 mg/dL (0.2-1) H 02/15/20 05:40 AST 14 U/L (15-37) L 02/15/20 05:40 ALT 39 U/L (13-61) 02/15/20 05:40 Alkaline Phosphatase 124 U/L (45-117) H 02/15/20 05:40 Total Protein 5.9 g/dl (6.4-8.2) L 02/15/20 05:40 Albumin 2.8 g/dl (3.4-5.0) L 02/15/20 05:40 CARDIAC ENZYMES Creatine Kinase 309 U/L (26-308) H 01/31/20 06:25 Troponin I < 0.02 ng/ml (0.00-0.05) 01/31/20 06:25 Current Medications Generic Name Dose Route Start Last Admin Trade Name Freq PRN Reason Stop Dose Admin Acetaminophen 650 mg 02/14/20 19:42 Tylenol - PO Q6H PRN FEVER Albuterol Sulfate 1 puff 02/14/20 19:42 Ventolin Hfa Inhaler - IH Q4H PRN SHORT OF BREATH/WHEEZING Apixaban 5 mg 02/14/20 22:00 02/15/20 11:09 Eliquis - PO 5 mg BID SARAH Administration Ascorbic Acid 500 mg 02/14/20 22:00 02/15/20 11:07 Vitamin C - PO 500 mg BID SARAH Administration Aspirin 81 mg 02/15/20 10:00 02/15/20 11:07 Asa - PO 81 mg DAILY SARAH Administration Cholecalciferol 2,000 unit 02/15/20 11:53 Vitamin D3 - PO DAILY [facility] Clotrimazole 1 applic 02/14/20 22:00 02/15/20 11:08 Lotrimin 1% Cream - TP 1 applic BID [facility] Administration Guaifenesin/Codeine Phosphate 10 ml 02/14/20 19:42 02/15/20 18:45 Robitussin Ac - PO 10 ml Q6H PRN Administration COUGH Non-Formulary Medication 100 250 mls @ 270 mls/hr 02/15/20 10:00 02/15/20 11:08 mg/ Sodium Chloride IVPB 02/16/20 10:56 270 mls/hr DAILY SARAH Administration Insulin Aspart 1 vial 02/14/20 22:00 02/15/20 16:32 Novolog Vial Sliding Scale - SQ 8 units ACHS SARAH Administration Protocol Insulin Detemir 35 units 02/15/20 08:06 Levemir Vial SQ BID@0700,2200 SARAH Melatonin 5 mg 02/14/20 19:42 Melatonin PO HS PRN INSOMNIA Ondansetron HCl 4 mg 02/14/20 19:42 Zofran Injection IVPUSH Q6H PRN NAUSEA Zinc Sulfate 220 mg 02/14/20 22:00 02/15/20 11:08 Orazinc - PO 220 mg BID SARAH Administration Home Medications Medication Instructions Recorded Acetaminophen W/ Codeine #3 1 tab PO Q6H #30 tablet MDD 4 10/14/17 [Tylenol # 3] Azithromycin [Zithromax -] 250 mg PO UTDICT #6 tab 10/14/17 Meclizine HCl 25 mg PO TID #30 tablet 10/14/17 CT head negative Microbiology 01/27/20 09:30 Blood - Peripheral Venous Blood Culture - Final NO GROWTH AFTER 5 DAYS INCUBATION 01/27/20 09:30 Blood - Peripheral Venous Blood Culture - Final NO GROWTH AFTER 5 DAYS INCUBATION 01/25/20 16:29 Blood - Peripheral Venous Blood Culture - Final NO GROWTH AFTER 5 DAYS INCUBATION 01/25/20 16:29 Blood - Peripheral Venous Blood Culture - Final NO GROWTH AFTER 5 DAYS INCUBATION 01/27/20 14:15 Sputum - Expectorated Gram Stain - Final 01/27/20 14:15 Sputum - Expectorated Sputum Culture - Final Haemophilus Parainfluenzae Ii 01/27/20 09:20 Urine - Urine Clean Catch Legionella Antigen - Final 01/27/20 09:20 Urine - Urine Clean Catch Streptococcus pneumoniae Antigen (M - Final TB test negative ASSESSMENT AND PLAN: This patient is a 34yom with PMhx of HTN (not on meds) and newly diagnosed T2DM on admission, who presents with 3-4 days of increasing dyspnea and diarrhea. 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 #COVID 19 Pneumonia improved on medrol/vit c/d/z on Eliquis 5mg bid s/p tocolizumab 01/29, s/p remdesivir x 2 , s/p convalescent plasma 01/25, s/p abx X 10 days # H. parainfluenzae on the sputum s/p abx x 10 days, id on the case #T2DM with new dx, with A1c 10.5, SS with coverage, diabetic diet #Class 3 Obesity: weight loss and life style modification DVT Ppx: Eliquis 5mg BID
[2020-02-16] MEDS: INSULIN (LEVEMIR) 100 UNITS/ML UNITS SQ SCH ×2 (06:09→21:41)
[2020-02-16] MEDS: INSULIN SLIDING SCALE (NOVOLOG) 1 VIAL SQ SCH ×4 (06:10→21:40)
--- NOTE | 2020-02-16 07:43 | PN ---
Progress Note, Physician History of Present Illness: PULMONARY ALERT,ON 100%NRB,LESS DYSPNEIC,O2 SAT 98% - Current Medication List Current Medications: Active Medications Acetaminophen (Tylenol -) 650 mg PO Q6H PRN PRN Reason: FEVER Albuterol Sulfate (Ventolin Hfa Inhaler -) 1 puff IH Q4H PRN PRN Reason: SHORT OF BREATH/WHEEZING Apixaban (Eliquis -) 5 mg PO BID [facility] Last Admin: 02/15/20 23:22 Dose: 5 mg Documented by: Ascorbic Acid (Vitamin C -) 500 mg PO BID [facility] Last Admin: 02/15/20 23:23 Dose: 500 mg Documented by: Aspirin (Asa -) 81 mg PO DAILY [facility] Last Admin: 02/15/20 11:07 Dose: 81 mg Documented by: Cholecalciferol (Vitamin D3 -) 2,000 unit PO DAILY [facility] Clotrimazole (Lotrimin 1% Cream -) 1 applic TP BID [facility] Last Admin: 02/15/20 23:22 Dose: 1 applic Documented by: Guaifenesin/Codeine Phosphate (Robitussin Ac -) 10 ml PO Q6H PRN PRN Reason: COUGH Last Admin: 02/15/20 18:45 Dose: 10 ml Documented by: Non-Formulary Medication 100 (mg/ Sodium Chloride) 250 mls @ 270 mls/hr IVPB DAILY [facility] Stop: 02/16/20 10:56 Last Admin: 02/15/20 11:08 Dose: 270 mls/hr Documented by: Insulin Aspart (Novolog Vial Sliding Scale -) 1 vial SQ ACHS [facility]; Protocol Last Admin: 02/16/20 06:10 Dose: Not Given Documented by: Insulin Detemir (Levemir Vial) 35 units SQ BID@0700,2200 [facility] Last Admin: 02/16/20 06:09 Dose: 35 units Documented by: Melatonin (Melatonin) 5 mg PO HS PRN PRN Reason: INSOMNIA Ondansetron HCl (Zofran Injection) 4 mg IVPUSH Q6H PRN PRN Reason: NAUSEA Zinc Sulfate (Orazinc -) 220 mg PO BID [facility] Last Admin: 02/15/20 23:23 Dose: 220 mg Documented by: - Objective Vital Signs: Vital Signs Temperature 98.8 F 02/16/20 06:00 Pulse Rate 75 02/16/20 06:00 Respiratory Rate 18 02/16/20 06:00 Blood Pressure 129/74 02/16/20 06:00 O2 Sat by Pulse Oximetry (%) 98 02/16/20 05:13 Constitutional: Yes: Calm, Obese Eyes: Yes: WNL HENT: Yes: WNL Neck: Yes: WNL Cardiovascular: Yes: Regular Rate and Rhythm, S1, S2 Respiratory: Yes: Diminished Gastrointestinal: Yes: Normal Bowel Sounds, Soft Extremities: Yes: WNL Edema: No Labs: Problem List - Problems (1) Acute hypoxemic respiratory failure Code(s): J96.01 - ACUTE RESPIRATORY FAILURE WITH HYPOXIA (2) COVID-19 Code(s): U07.1 - COVID POSITIVE (3) HTN (hypertension) Code(s): I10 - ESSENTIAL (PRIMARY) HYPERTENSION (4) REYNALDO (obstructive sleep apnea) Code(s): G47.33 - OBSTRUCTIVE SLEEP APNEA (ADULT) (PEDIATRIC) (5) Obesity Code(s): E66.9 - OBESITY, UNSPECIFIED Assessment/Plan ASSESSMENT AND PLAN: Acute Hypoxic Respiratory Failure COVID Pneumonia HTN DM - s/p tocilizumab infusion - medrol - empiric anticoagulation - complete empiric antibiotics - received convalescent plasma - trend ferritin, LDH, CRP - titrate O2 to keep SpO2 >90% - BiPAP - DVT prophylaxis - continue Remdesivir infusion DR MCKEON
[2020-02-16 07:49] LABS: HEMATOCRIT 36.2 % (35.4-49); HEMOGLOBIN 11.6 GM/dL (11.7-16.9); MCH 24.1 pg (25.7-33.7); MEAN CELL VOLUME 75.5 fl (80-96); MEAN PLT VOLUME 9.1 fl (7.5-11.1); PLATELET COUNT 250 K/MM3 (134-434); RBC 4.79 M/mm3 (4.00-5.60); WHITE BLOOD COUNT 7.7 K/mm3 (4.0-10.0)
[2020-02-16] MEDS: ACETAMINOPHEN 325 MG TABLET (FP) PO PRN (08:18)
[2020-02-16 08:23] LABS: ALBUMIN 2.8 g/dl (3.4-5.0); ALK PHOS 114 U/L (45-117); ANION GAP 4 MMOL/L (8-16); BLOOD UREA NITROGEN 17.2 mg/dL (7-18); CALCIUM 8.4 mg/dL (8.5-10.1); CHLORIDE 98 mmol/L (98-107); CO2 35 mmol/L (21-32); CREATININE 0.8 mg/dL (0.55-1.3); GLUCOSE,RANDOM 217 mg/dL (74-106); LDH 423 U/L (87-246); POTASSIUM 4.1 mmol/L (3.5-5.1); SGOT/AST 12 U/L (15-37); SGPT/ALT 39 U/L (13-61); SODIUM 137 mmol/L (136-145); TOT PROT 5.7 g/dl (6.4-8.2)
[2020-02-16] MEDS: CLOTRIMAZOLE 1% CREAM 15 GM TUBE TP SCH ×2 (10:02→21:41)
[2020-02-16] MEDS: ASCORBIC ACID 500 MG TABLET (FP) PO SCH ×2 (10:02→21:40)
[2020-02-16] MEDS: CHOLECALCIFEROL (VIT D3) 1,000 UNIT (25 MCG) TABLET PO SCH (10:02)
[2020-02-16] MEDS: APIXABAN 5 MG TABLET PO SCH ×2 (10:02→21:42)
[2020-02-16] MEDS: ASPIRIN 81 MG CHEWABLE TABLETS PO SCH (10:02)
[2020-02-16] MEDS: ZINC SULFATE 220 MG CAPSULE (FP) PO SCH ×2 (10:03→21:40)
[2020-02-16] MEDS: guaiFENesin/CODEINE 10 ML UNIT-DOSE CUPS PO PRN (10:03)
--- NOTE | 2020-02-16 10:19 | PN ---
Teaching Attending Note Name of Resident: Mynor Curry ATTENDING PHYSICIAN STATEMENT I saw and evaluated the patient. I reviewed the resident's note and discussed the case with the resident. I agree with the resident's findings and plan as documented. SUBJECTIVE: Patient looks comfortable, as per nurse, patient is not sticking to diabetic d iet. Otherwise feels better. Fi02 80% NRB OBJECTIVE: Vital Signs Temperature 98.8 F 02/16/20 06:00 Pulse Rate 75 02/16/20 06:00 Respiratory Rate 18 02/16/20 06:00 Blood Pressure 129/74 02/16/20 06:00 O2 Sat by Pulse Oximetry (%) 98 02/16/20 05:13 PE:per resident's note CBCD WBC 7.7 K/mm3 (4.0-10.0) 02/16/20 06:30 RBC 4.79 M/mm3 (4.00-5.60) 02/16/20 06:30 Hgb 11.6 GM/dL (11.7-16.9) L 02/16/20 06:30 Hct 36.2 % (35.4-49) 02/16/20 06:30 MCV 75.5 fl (80-96) L 02/16/20 06:30 MCHC 32.0 g/dl (32.0-35.9) 02/16/20 06:30 RDW 16.0 % (11.9-15.9) H 02/16/20 06:30 Plt Count 250 K/MM3 (134-434) 02/16/20 06:30 MPV 9.1 fl (7.5-11.1) 02/16/20 06:30 CMP Sodium 137 mmol/L (136-145) 02/16/20 06:30 Potassium 4.1 mmol/L (3.5-5.1) 02/16/20 06:30 Chloride 98 mmol/L (98-107) 02/16/20 06:30 Carbon Dioxide 35 mmol/L (21-32) H 02/16/20 06:30 Anion Gap 4 MMOL/L (8-16) L 02/16/20 06:30 BUN 17.2 mg/dL (7-18) 02/16/20 06:30 Creatinine 0.8 mg/dL (0.55-1.3) 02/16/20 06:30 Random Glucose 217 mg/dL (74-106) H 02/16/20 06:30 Calcium 8.4 mg/dL (8.5-10.1) L 02/16/20 06:30 Total Bilirubin 1.0 mg/dL (0.2-1) 02/16/20 06:30 AST 12 U/L (15-37) L 02/16/20 06:30 ALT 39 U/L (13-61) 02/16/20 06:30 Alkaline Phosphatase 114 U/L (45-117) 02/16/20 06:30 Total Protein 5.7 g/dl (6.4-8.2) L 02/16/20 06:30 Albumin 2.8 g/dl (3.4-5.0) L 02/16/20 06:30 CARDIAC ENZYMES Creatine Kinase 309 U/L (26-308) H 01/31/20 06:25 Troponin I < 0.02 ng/ml (0.00-0.05) 01/31/20 06:25 Current Medications Generic Name Dose Route Start Last Admin Trade Name Freq PRN Reason Stop Dose Admin Acetaminophen 650 mg 02/14/20 19:42 02/16/20 08:18 Tylenol - PO 650 mg Q6H PRN Administration FEVER Albuterol Sulfate 1 puff 02/14/20 19:42 Ventolin Hfa Inhaler - IH Q4H PRN SHORT OF BREATH/WHEEZING Apixaban 5 mg 02/14/20 22:00 02/16/20 10:02 Eliquis - PO 5 mg BID SARAH Administration Ascorbic Acid 500 mg 02/14/20 22:00 02/16/20 10:02 Vitamin C - PO 500 mg BID SARAH Administration Aspirin 81 mg 02/15/20 10:00 02/16/20 10:02 Asa - PO 81 mg DAILY SARAH Administration Cholecalciferol 2,000 unit 02/15/20 11:53 02/16/20 10:02 Vitamin D3 - PO 2,000 unit DAILY SARAH Administration Clotrimazole 1 applic 02/14/20 22:00 02/16/20 10:02 Lotrimin 1% Cream - TP 1 applic BID SARAH Administration Guaifenesin/Codeine Phosphate 10 ml 02/14/20 19:42 02/16/20 10:03 Robitussin Ac - PO 10 ml Q6H PRN Administration COUGH Non-Formulary Medication 100 250 mls @ 270 mls/hr 02/15/20 10:00 02/15/20 11:08 mg/ Sodium Chloride IVPB 02/16/20 10:56 270 mls/hr DAILY SARAH Administration Insulin Aspart 1 vial 02/14/20 22:00 02/16/20 06:10 Novolog Vial Sliding Scale - SQ Not Given ACHS [facility] Protocol Insulin Detemir 40 units 02/16/20 22:00 Levemir Vial SQ BID@0700,2200 SARAH Melatonin 5 mg 02/14/20 19:42 Melatonin PO HS PRN INSOMNIA Ondansetron HCl 4 mg 02/14/20 19:42 Zofran Injection IVPUSH Q6H PRN NAUSEA Zinc Sulfate 220 mg 02/14/20 22:00 02/16/20 10:03 Orazinc - PO 220 mg BID SARAH Administration Home Medications Medication Instructions Recorded Acetaminophen W/ Codeine #3 1 tab PO Q6H #30 tablet MDD 4 10/14/17 [Tylenol # 3] Azithromycin [Zithromax -] 250 mg PO UTDICT #6 tab 10/14/17 Meclizine HCl 25 mg PO TID #30 tablet 10/14/17 Microbiology 01/27/20 09:30 Blood - Peripheral Venous Blood Culture - Final NO GROWTH AFTER 5 DAYS INCUBATION 01/27/20 09:30 Blood - Peripheral Venous Blood Culture - Final NO GROWTH AFTER 5 DAYS INCUBATION 01/25/20 16:29 Blood - Peripheral Venous Blood Culture - Final NO GROWTH AFTER 5 DAYS INCUBATION 01/25/20 16:29 Blood - Peripheral Venous Blood Culture - Final NO GROWTH AFTER 5 DAYS INCUBATION 01/27/20 14:15 Sputum - Expectorated Gram Stain - Final 01/27/20 14:15 Sputum - Expectorated Sputum Culture - Final Haemophilus Parainfluenzae Ii 01/27/20 09:20 Urine - Urine Clean Catch Legionella Antigen - Final 01/27/20 09:20 Urine - Urine Clean Catch Streptococcus pneumoniae Antigen (M - Final TB test negative ASSESSMENT AND PLAN: This patient is a 34yom with PMhx of HTN (not on meds) and newly diagnosed T2DM on admission, who presents with 3-4 days of increasing dyspnea and diarrhea. 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 #COVID 19 Pneumonia: improved on medrol/vit c/d/z on Eliquis 5mg bid s/p tocolizumab on 01/29, s/p remdesivir x 11/30 today , s/p convalescent plasma , s/p abx X 10 days, improving. continue to follow markers. # H. parainfluenzae on the sputum #T2DM with new dx, with A1c 10.5, SS with coverage DVT Ppx: Eliquis 5mg BID
[2020-02-16] MEDS: REMDESIVIR 100 MG in SODIUM CHLORIDE 230 ML IVPB SCH (11:31)
--- NOTE | 2020-02-16 13:55 | PN ---
Progress Note (short form) - Note Progress Note: day #3 remdesivir fi02 80% NRB mask no complaints Vital Signs Period Temp Pulse Resp BP Sys/Miner Pulse Ox Last 24 Hr 97.2 F-98.8 F 73-95 18-22 116-145/71-93 98-99 cor-rrr llungs decreased bs at bases abd soft,nt ext no edema CBC, BMP 02/16/20 06:30 02/15/ 06:30 quant gold negative a/p covid 19 positive hemophilus parainfluenza +sputum culture-s/p 10 days of antibioitics obesity- suspected osas HTN hypoxemic respiratory failure- persists s/p convalescent plasma s/p tocilizumab remains on NRB remdisivir day #3/5 inflammatory markers improved taper oxygen as tolerated Problem List - Problems (1) Acute hypoxemic respiratory failure Code(s): J96.01 - ACUTE RESPIRATORY FAILURE WITH HYPOXIA (2) COVID-19 Code(s): U07.1 - COVID POSITIVE (3) HTN (hypertension) Code(s): I10 - ESSENTIAL (PRIMARY) HYPERTENSION (4) Obesity Code(s): E66.9 - OBESITY, UNSPECIFIED (5) REYNALDO (obstructive sleep apnea) Code(s): G47.33 - OBSTRUCTIVE SLEEP APNEA (ADULT) (PEDIATRIC)
--- NOTE | 2020-02-16 14:06 | PN ---
Physical Exam: SUBJECTIVE: Patient seen and examined. No acute events noted, pt only c/o productive cough and sob with movement. Denies cp, abd pain, bowel/bladder complaints. OBJECTIVE: Vital Signs Period Temp Pulse Resp BP Sys/Miner Pulse Ox Last 24 Hr 98.0 F-98.8 F 75-95 18-22 116-145/71-93 98-99 GENERAL: The patient is awake, alert, and fully oriented, in no acute distress. LUNGS: NO ISO STETH IN ROOM HEART: NO ISO STETH IN ROOM. ABDOMEN: Soft, nontender, nondistended. EXTREMITIES: 2+ pulses, warm, well-perfused, no edema. Laboratory Results - last 24 hr 02/15/20 02/16/20 02/16/20 16:03 06:30 06:30 WBC 7.7 RBC 4.79 Hgb 11.6 L Hct 36.2 MCV 75.5 L MCH 24.1 L MCHC 32.0 RDW 16.0 H Plt Count 250 MPV 9.1 Sodium 137 Potassium 4.1 Chloride 98 Carbon Dioxide 35 H Anion Gap 4 L BUN 17.2 Creatinine 0.8 Est GFR (CKD-EPI)AfAm 134.14 Est GFR (CKD-EPI)NonAf 115.74 POC Glucometer 308 Random Glucose 217 H Calcium 8.4 L Ferritin 470.7 H Total Bilirubin 1.0 AST 12 L ALT 39 Alkaline Phosphatase 114 LD Total 423 H C-Reactive Protein < 0.3 Total Protein 5.7 L Albumin 2.8 L 02/16/20 11:35 WBC RBC Hgb Hct MCV MCH MCHC RDW Plt Count MPV Sodium Potassium Chloride Carbon Dioxide Anion Gap BUN Creatinine Est GFR (CKD-EPI)AfAm Est GFR (CKD-EPI)NonAf POC Glucometer 286 Random Glucose Calcium Ferritin Total Bilirubin AST ALT Alkaline Phosphatase LD Total C-Reactive Protein Total Protein Albumin Active Medications Generic Name Dose Route Start Last Admin Trade Name Freq PRN Reason Stop Dose Admin Acetaminophen 650 mg 02/14/20 19:42 02/16/20 08:18 Tylenol - PO 650 mg Q6H PRN Administration FEVER Albuterol Sulfate 1 puff 02/14/20 19:42 Ventolin Hfa Inhaler - IH Q4H PRN SHORT OF BREATH/WHEEZING Apixaban 5 mg 02/14/20 22:00 02/16/20 10:02 Eliquis - PO 5 mg BID SARAH Administration Ascorbic Acid 500 mg 02/14/20 22:00 02/16/20 10:02 Vitamin C - PO 500 mg BID SARAH Administration Aspirin 81 mg 02/15/20 10:00 02/16/20 10:02 Asa - PO 81 mg DAILY SARAH Administration Cholecalciferol 2,000 unit 02/15/20 11:53 02/16/20 10:02 Vitamin D3 - PO 2,000 unit DAILY SARAH Administration Clotrimazole 1 applic 02/14/20 22:00 02/16/20 10:02 Lotrimin 1% Cream - TP 1 applic BID SARAH Administration Guaifenesin/Codeine Phosphate 10 ml 02/14/20 19:42 02/16/20 10:03 Robitussin Ac - PO 10 ml Q6H PRN Administration COUGH Insulin Aspart 1 vial 02/14/20 22:00 02/16/20 12:03 Novolog Vial Sliding Scale - SQ 6 units ACHS SARAH Administration Protocol Insulin Detemir 40 units 02/17/20 10:00 Levemir Vial SQ HS SARAH Insulin Detemir 35 units 02/16/20 22:00 Levemir Vial SQ HS SARAH Melatonin 5 mg 02/14/20 19:42 Melatonin PO HS PRN INSOMNIA Ondansetron HCl 4 mg 02/14/20 19:42 Zofran Injection IVPUSH Q6H PRN NAUSEA Zinc Sulfate 220 mg 02/14/20 22:00 02/16/20 10:03 Orazinc - PO 220 mg BID SARAH Administration ASSESSMENT/PLAN: Pt is a 34 y/o male with HTN (not on meds) and newly diagnosed DM on admission, who presents with 3-4 days of increasing dyspnea and diarrhea. Two days ago he began having chest pain with coughing. 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 #COVID 19 Pneumonia - adjust between NRB and BiPAP (night) as needed to keep O2 >90, taper oxygen as tolerated -incentive spirometer -Legionella and step pneumo negative -sputum positive rare H. parainfluenzae - s/p abx X 10 days - s/p solu-medrol treatment has been dc'd - -s/p convalescent plasma 01/25 -s/p tocolizumab 01/29 - remdisivir day #3/5 inflammatory markers improved -vitamin C/vitamin D,zinc, - full AC 5 BID eliquis - TB test negative -ID following #Newly diagnosed DM -A1C 10.5 -BGMs, increased levemir to 40 in AM and 35 HS -goal BG 140-180, consider insulin drip if needed, discussed with pt yesterday but levels have improved - on steroids likely worsening it DVT Ppx Eliquis 5mg BID FEN PO fluids monitor labs diabetic diet dispo: ICU monitoring Visit type - Emergency Visit Emergency Visit: Yes ED Registration Date: 01/25/20 Care time: The patient presented to the Emergency Department on the above date and was hospitalized for further evaluation of their emergent condition. - New Patient This patient is new to me today: No - Critical Care Critical Care patient: No - Discharge Referral Referred to [facility] Med [facility] No ATTENDING PHYSICIAN STATEMENT I saw and evaluated the patient. I reviewed the resident's note and discussed the case with the resident. I agree with the resident's findings and plan as documented. SUBJECTIVE: OBJECTIVE: ASSESSMENT AND PLAN:
[2020-02-16] MEDS ORDERED: INSULIN (LEVEMIR) 100 UNITS/ML UNITS SQ SCH (22:00)
[2020-02-17] MEDS: INSULIN SLIDING SCALE (NOVOLOG) 1 VIAL SQ SCH ×4 (06:07→23:36)
[2020-02-17] MEDS: INSULIN (LEVEMIR) 100 UNITS/ML UNITS SQ SCH ×2 (06:07→23:36)
--- NOTE | 2020-02-17 07:25 | PN ---
Progress Note, Physician History of Present Illness: pulmonary alert c/o worsening sob earlier today on 100% nrb,currently feeling better, o2 sat 100% - Current Medication List Current Medications: Active Medications Acetaminophen (Tylenol -) 650 mg PO Q6H PRN PRN Reason: FEVER Last Admin: 02/16/20 08:18 Dose: 650 mg Documented by: Albuterol Sulfate (Ventolin Hfa Inhaler -) 1 puff IH Q4H PRN PRN Reason: SHORT OF BREATH/WHEEZING Apixaban (Eliquis -) 5 mg PO BID [facility] Last Admin: 02/16/20 21:42 Dose: 5 mg Documented by: Ascorbic Acid (Vitamin C -) 500 mg PO BID [facility] Last Admin: 02/16/20 21:40 Dose: 500 mg Documented by: Aspirin (Asa -) 81 mg PO DAILY [facility] Last Admin: 02/16/20 10:02 Dose: 81 mg Documented by: Cholecalciferol (Vitamin D3 -) 2,000 unit PO DAILY [facility] Last Admin: 02/16/20 10:02 Dose: 2,000 unit Documented by: Clotrimazole (Lotrimin 1% Cream -) 1 applic TP BID [facility] Last Admin: 02/16/20 21:41 Dose: 1 applic Documented by: Guaifenesin/Codeine Phosphate (Robitussin Ac -) 10 ml PO Q6H PRN PRN Reason: COUGH Last Admin: 02/16/20 10:03 Dose: 10 ml Documented by: Insulin Aspart (Novolog Vial Sliding Scale -) 1 vial SQ ACHS [facility]; Protocol Last Admin: 02/17/20 06:07 Dose: 4 units Documented by: Insulin Detemir (Levemir Vial) 40 units SQ ACBK [facility] Last Admin: 02/17/20 06:07 Dose: 40 unit Documented by: Insulin Detemir (Levemir Vial) 35 units SQ HS [facility] Last Admin: 02/16/20 21:41 Dose: 35 units Documented by: Melatonin (Melatonin) 5 mg PO HS PRN PRN Reason: INSOMNIA Ondansetron HCl (Zofran Injection) 4 mg IVPUSH Q6H PRN PRN Reason: NAUSEA Zinc Sulfate (Orazinc -) 220 mg PO BID [facility] Last Admin: 02/16/20 21:40 Dose: 220 mg Documented by: - Objective Vital Signs: Vital Signs Temperature 97.6 F 02/17/20 06:00 Pulse Rate 90 02/17/20 06:00 Respiratory Rate 18 02/17/20 06:00 Blood Pressure 149/80 02/17/20 06:00 O2 Sat by Pulse Oximetry (%) 96 02/17/20 03:07 Constitutional: Yes: Calm, Obese Eyes: Yes: WNL HENT: Yes: WNL Neck: Yes: WNL Cardiovascular: Yes: Regular Rate and Rhythm, S1, S2 Respiratory: Yes: Diminished Gastrointestinal: Yes: Normal Bowel Sounds, Soft Extremities: Yes: WNL Edema: No Labs: CBC, BMP 02/16/20 06:30 Laboratory Tests 02/17/20 02/17/20 06:30 06:30 D-Dimer 6750 H Ferritin 526.4 H LD Total 498 H Problem List - Problems (1) Acute hypoxemic respiratory failure Code(s): J96.01 - ACUTE RESPIRATORY FAILURE WITH HYPOXIA (2) COVID-19 Code(s): U07.1 - COVID POSITIVE (3) HTN (hypertension) Code(s): I10 - ESSENTIAL (PRIMARY) HYPERTENSION (4) REYNALDO (obstructive sleep apnea) Code(s): G47.33 - OBSTRUCTIVE SLEEP APNEA (ADULT) (PEDIATRIC) (5) Obesity Code(s): E66.9 - OBESITY, UNSPECIFIED Assessment/Plan ASSESSMENT AND PLAN: Acute Hypoxic Respiratory Failure COVID Pneumonia HTN DM - s/p tocilizumab infusion - medrol - empiric anticoagulation - complete empiric antibiotics - received convalescent plasma - trend ferritin, LDH, CRP - titrate O2 to keep SpO2 >90% - BiPAP - DVT prophylaxis - continue Remdesivir infusion - chest x-ray DR MCKEON
[2020-02-17 07:55] LABS: BASO % 1.2 % (0-2.0); EOS % 5.3 % (0-4.5); HEMATOCRIT 38.9 % (35.4-49); HEMOGLOBIN 12.5 GM/dL (11.7-16.9); LYMPH % 24.9 % (8-40); MCH 24.3 pg (25.7-33.7); MCHC 32.1 g/dl (32.0-35.9); MEAN CELL VOLUME 75.7 fl (80-96); MEAN PLT VOLUME 9.1 fl (7.5-11.1); MONO % 5.2 % (3.8-10.2); NEUT % 63.4 % (42.8-82.8); PLATELET COUNT 279 K/MM3 (134-434); RBC 5.14 M/mm3 (4.00-5.60)
[2020-02-17 08:24] LABS: POTASSIUM 4.2 mmol/L (3.5-5.1)
[2020-02-17 08:37] LABS: ALBUMIN 3.2 g/dl (3.4-5.0); BILIRUBIN,TOTAL 0.9 mg/dL (0.2-1); BLOOD UREA NITROGEN 16.5 mg/dL (7-18); CALCIUM 8.7 mg/dL (8.5-10.1); CREATININE 0.7 mg/dL (0.55-1.3); MAGNESIUM 2.1 mg/dL (1.8-2.4); TOT PROT 6.4 g/dl (6.4-8.2)
[2020-02-17] MEDS: CHOLECALCIFEROL (VIT D3) 1,000 UNIT (25 MCG) TABLET PO SCH (09:02)
[2020-02-17] MEDS: APIXABAN 5 MG TABLET PO SCH ×2 (09:02→23:36)
[2020-02-17] MEDS: ASCORBIC ACID 500 MG TABLET (FP) PO SCH ×2 (09:02→23:37)
[2020-02-17] MEDS: ASPIRIN 81 MG CHEWABLE TABLETS PO SCH (09:02)
[2020-02-17] MEDS: ZINC SULFATE 220 MG CAPSULE (FP) PO SCH ×2 (09:02→23:37)
[2020-02-17] MEDS: CLOTRIMAZOLE 1% CREAM 15 GM TUBE TP SCH ×2 (09:03→23:36)
[2020-02-17] MEDS ORDERED: REMDESIVIR 100 MG in SODIUM CHLORIDE 230 ML IVPB SCH (10:00)
--- NOTE | 2020-02-17 14:00 | PN ---
Physical Exam: SUBJECTIVE: Patient seen and examined. Pt offered no complaints this morning. Satting at 100% on NRB but becmes SOB on exertion or minimal activity. OBJECTIVE: Vital Signs Period Temp Pulse Resp BP Sys/Miner Pulse Ox Last 24 Hr 97.6 F-98.8 F 75-91 18-20 124-150/65-100 96-100 GENERAL: The patient is awake, alert, and fully oriented, in no acute distress. HEAD: Normal with no signs of trauma. EYES: PERRL, extraocular movements intact, sclera anicteric, conjunctiva clear. No ptosis. ENT: oropharynx clear without exudates, moist mucous membranes. NECK: Trachea midline, full range of motion, supple. LUNGS: No ISOLATION STETHOSCOPE. HEART: No ISOLATION STETHOSCOPE. ABDOMEN: Soft, nontender,obese, no guarding, no rebound, no hepatosplenomegaly, no masses. EXTREMITIES: 2+ pulses, warm, well-perfused, no edema. NEUROLOGICAL: Cranial nerves II through XII grossly intact. Normal speech, gait not observed. PSYCH: Normal mood, normal affect. SKIN: Warm, dry, normal turgor Laboratory Results - last 24 hr 02/16/20 02/17/20 02/17/20 17:09 06:30 06:30 WBC 10.0 RBC 5.14 Hgb 12.5 Hct 38.9 MCV 75.7 L MCH 24.3 L MCHC 32.1 RDW 16.0 H Plt Count 279 MPV 9.1 Absolute Neuts (auto) 6.4 Neutrophils % 63.4 D Lymphocytes % 24.9 D Monocytes % 5.2 D Eosinophils % 5.3 H D Basophils % 1.2 D Nucleated RBC % 0 D-Dimer 6750 H Sodium Potassium Chloride Carbon Dioxide Anion Gap BUN Creatinine Est GFR (CKD-EPI)AfAm Est GFR (CKD-EPI)NonAf POC Glucometer 179 Random Glucose Calcium Phosphorus Magnesium Ferritin Total Bilirubin AST ALT Alkaline Phosphatase LD Total Total Protein Albumin 02/17/20 06:30 WBC RBC Hgb Hct MCV MCH MCHC RDW Plt Count MPV Absolute Neuts (auto) Neutrophils % Lymphocytes % Monocytes % Eosinophils % Basophils % Nucleated RBC % D-Dimer Sodium 136 Potassium 4.2 Chloride 98 Carbon Dioxide 32 Anion Gap 6 L BUN 16.5 Creatinine 0.7 Est GFR (CKD-EPI)AfAm 141.70 Est GFR (CKD-EPI)NonAf 122.26 POC Glucometer Random Glucose 203 H Calcium 8.7 Phosphorus 4.0 Magnesium 2.1 Ferritin 526.4 H Total Bilirubin 0.9 AST 15 ALT 43 Alkaline Phosphatase 130 H LD Total 498 H Total Protein 6.4 Albumin 3.2 L Active Medications Generic Name Dose Route Start Last Admin Trade Name Freq PRN Reason Stop Dose Admin Acetaminophen 650 mg 02/14/20 19:42 02/16/20 08:18 Tylenol - PO 650 mg Q6H PRN Administration FEVER Albuterol Sulfate 1 puff 02/14/20 19:42 Ventolin Hfa Inhaler - IH Q4H PRN SHORT OF BREATH/WHEEZING Apixaban 5 mg 02/14/20 22:00 02/17/20 09:02 Eliquis - PO 5 mg BID SARAH Administration Ascorbic Acid 500 mg 02/14/20 22:00 02/17/20 09:02 Vitamin C - PO 500 mg BID SARAH Administration Aspirin 81 mg 02/15/20 10:00 02/17/20 09:02 Asa - PO 81 mg DAILY SARAH Administration Cholecalciferol 2,000 unit 02/15/20 11:53 02/17/20 09:02 Vitamin D3 - PO 2,000 unit DAILY [facility] Administration Clotrimazole 1 applic 02/14/20 22:00 02/17/20 09:03 Lotrimin 1% Cream - TP 1 applic BID SARAH Administration Guaifenesin/Codeine Phosphate 10 ml 02/14/20 19:42 02/16/20 10:03 Robitussin Ac - PO 10 ml Q6H PRN Administration COUGH Insulin Aspart 1 vial 02/14/20 22:00 02/17/20 11:50 Novolog Vial Sliding Scale - SQ 2 units ACHS SARAH Administration Protocol Insulin Detemir 40 units 02/17/20 07:00 02/17/20 06:07 Levemir Vial SQ 40 unit ACBK SARAH Administration Insulin Detemir 35 units 02/16/20 22:00 02/16/20 21:41 Levemir Vial SQ 35 units HS SARAH Administration Melatonin 5 mg 02/14/20 19:42 Melatonin PO HS PRN INSOMNIA Methylprednisolone Sodium Succinate 30 mg 02/17/20 13:00 Solu-Medrol - IVPUSH BID SARAH Ondansetron HCl 4 mg 02/14/20 19:42 Zofran Injection IVPUSH Q6H PRN NAUSEA Zinc Sulfate 220 mg 02/14/20 22:00 02/17/20 09:02 Orazinc - PO 220 mg BID SARAH Administration ASSESSMENT/PLAN: 34 y/o male with HTN (not on meds) and newly diagnosed DM on admission, who presents with 3-4 days of increasing dyspnea and diarrhea. Two days ago he began having chest pain with coughing. 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 #COVID 19 Pneumonia satting 100% on NRB but SOB on exertion and desats. -NRB and BiPAP (night) as needed to keep O2 >90, taper oxygen as tolerated -incentive spirometer -Legionella and step pneumo negative -sputum positive rare H. parainfluenzae -s/p abx X 10 days -s/p convalescent plasma 01/25 -s/p tocolizumab 01/29 -remdisivir day #11/30 - inflammatory markers slightly worse today. trend markers daily - medrol 30mg IV BID restarted - vitamin C/vitamin D,zinc - full AC 5 BID eliquis - Albuterol PRN - TB test negative - ID and pulm recs appreciated #Newly diagnosed DM -A1C 10.5 -BGM - increased levemir to 40 in AM and 35 HS ,ISS DVT Ppx already on Eliquis 5mg BID FEN PO fluids monitor labs diabetic diet dispo: tele monitoring Visit type - Emergency Visit Emergency Visit: Yes ED Registration Date: 01/25/20 Care time: The patient presented to the Emergency Department on the above date and was hospitalized for further evaluation of their emergent condition. - New Patient This patient is new to me today: Yes Date on this admission: 02/17/20 - Critical Care Critical Care patient: No ATTENDING PHYSICIAN STATEMENT I saw and evaluated the patient. I reviewed the resident's note and discussed the case with the resident. I agree with the resident's findings and plan as documented. SUBJECTIVE: OBJECTIVE: ASSESSMENT AND PLAN:
[2020-02-17] MEDS: methylPREDNISolone NA SUCC 40 MG/1 ML VIAL IVPUSH SCH ×2 (14:38→23:37)
--- NOTE | 2020-02-17 16:40 | PN ---
Teaching Attending Note Name of Resident: Nichole Hassan ATTENDING PHYSICIAN STATEMENT I saw and evaluated the patient. I reviewed the resident's note and discussed the case with the resident. I agree with the resident's findings and plan as documented. SUBJECTIVE: Patient is feeling better, continues to be on NRB . OBJECTIVE: Vital Signs Temperature 97.9 F 02/17/20 14:00 Pulse Rate 73 02/17/20 14:00 Respiratory Rate 20 02/17/20 14:00 Blood Pressure 138/70 02/17/20 14:00 O2 Sat by Pulse Oximetry (%) 100 02/17/20 12:12 PE:per resident's note CBCD WBC 10.0 K/mm3 (4.0-10.0) 02/17/20 06:30 RBC 5.14 M/mm3 (4.00-5.60) 02/17/20 06:30 Hgb 12.5 GM/dL (11.7-16.9) 02/17/20 06:30 Hct 38.9 % (35.4-49) 02/17/20 06:30 MCV 75.7 fl (80-96) L 02/17/20 06:30 MCHC 32.1 g/dl (32.0-35.9) 02/17/20 06:30 RDW 16.0 % (11.9-15.9) H 02/17/20 06:30 Plt Count 279 K/MM3 (134-434) 02/17/20 06:30 MPV 9.1 fl (7.5-11.1) 02/17/20 06:30 CMP Sodium 136 mmol/L (136-145) 02/17/20 06:30 Potassium 4.2 mmol/L (3.5-5.1) 02/17/20 06:30 Chloride 98 mmol/L (98-107) 02/17/20 06:30 Carbon Dioxide 32 mmol/L (21-32) 02/17/20 06:30 Anion Gap 6 MMOL/L (8-16) L 02/17/20 06:30 BUN 16.5 mg/dL (7-18) 02/17/20 06:30 Creatinine 0.7 mg/dL (0.55-1.3) 02/17/20 06:30 Random Glucose 203 mg/dL (74-106) H 02/17/20 06:30 Calcium 8.7 mg/dL (8.5-10.1) 02/17/20 06:30 Total Bilirubin 0.9 mg/dL (0.2-1) 02/17/20 06:30 AST 15 U/L (15-37) 02/17/20 06:30 ALT 43 U/L (13-61) 02/17/20 06:30 Alkaline Phosphatase 130 U/L (45-117) H 02/17/20 06:30 Total Protein 6.4 g/dl (6.4-8.2) 02/17/20 06:30 Albumin 3.2 g/dl (3.4-5.0) L 02/17/20 06:30 CARDIAC ENZYMES Creatine Kinase 309 U/L (26-308) H 01/31/20 06:25 Troponin I < 0.02 ng/ml (0.00-0.05) 01/31/20 06:25 Current Medications Generic Name Dose Route Start Last Admin Trade Name Freq PRN Reason Stop Dose Admin Acetaminophen 650 mg 02/14/20 19:42 02/16/20 08:18 Tylenol - PO 650 mg Q6H PRN Administration FEVER Albuterol Sulfate 1 puff 02/14/20 19:42 Ventolin Hfa Inhaler - IH Q4H PRN SHORT OF BREATH/WHEEZING Albuterol/Ipratropium 1 amp 02/17/20 20:00 Duoneb - NEB RTID SARAH Apixaban 5 mg 02/14/20 22:00 02/17/20 09:02 Eliquis - PO 5 mg BID SARAH Administration Ascorbic Acid 500 mg 02/14/20 22:00 02/17/20 09:02 Vitamin C - PO 500 mg BID SRAAH Administration Aspirin 81 mg 02/15/20 10:00 02/17/20 09:02 Asa - PO 81 mg DAILY SARAH Administration Cholecalciferol 2,000 unit 02/15/20 11:53 02/17/20 09:02 Vitamin D3 - PO 2,000 unit DAILY SARAH Administration Clotrimazole 1 applic 02/14/20 22:00 02/17/20 09:03 Lotrimin 1% Cream - TP 1 applic BID SARAH Administration Guaifenesin/Codeine Phosphate 10 ml 02/14/20 19:42 02/16/20 10:03 Robitussin Ac - PO 10 ml Q6H PRN Administration COUGH Insulin Aspart 1 vial 02/14/20 22:00 02/17/20 11:50 Novolog Vial Sliding Scale - SQ 2 units ACHS SARAH Administration Protocol Insulin Detemir 40 units 02/17/20 07:00 02/17/20 06:07 Levemir Vial SQ 40 unit ACBK SARAH Administration Insulin Detemir 35 units 02/16/20 22:00 02/16/20 21:41 Levemir Vial SQ 35 units HS SARAH Administration Melatonin 5 mg 02/14/20 19:42 Melatonin PO HS PRN INSOMNIA Methylprednisolone Sodium Succinate 30 mg 02/17/20 13:00 02/17/20 14:38 Solu-Medrol - IVPUSH 30 mg BID SARAH Administration Ondansetron HCl 4 mg 02/14/20 19:42 Zofran Injection IVPUSH Q6H PRN NAUSEA Zinc Sulfate 220 mg 02/14/20 22:00 02/17/20 09:02 Orazinc - PO 220 mg BID SARAH Administration Hepatic Panel Total Bilirubin 0.9 mg/dL (0.2-1) 02/17/20 06:30 Direct Bilirubin 0.2 mg/dL (0.0-0.2) 02/14/20 06:15 AST 15 U/L (15-37) 02/17/20 06:30 ALT 43 U/L (13-61) 02/17/20 06:30 Alkaline Phosphatase 130 U/L (45-117) H 02/17/20 06:30 Albumin 3.2 g/dl (3.4-5.0) L 02/17/20 06:30 TB test negative ASSESSMENT AND PLAN: This patient is a 34yom with PMhx of HTN (not on meds) and newly diagnosed T2DM on admission, who presents with 3-4 days of increasing dyspnea and diarrhea. 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 #COVID 19 Pneumonia: improving on medrol/vit c/d/z on Eliquis 5mg bid s/p tocolizumab on 01/29, s/p remdesivir x 12/31 today , s/p convalescent plasma 01/25, s/p abx X 10 days, improving. continue to follow markers. # H. parainfluenzae on the sputum #T2DM with new dx, with A1c 10.5, SS with coverage DVT Ppx: Eliquis 5mg BID
--- NOTE | 2020-02-17 22:04 | PN ---
Progress Note, Physician Chief Complaint: AWAKE, ALERT IN BED OFFERS NO COMPLAINTS BREATHING NON LABORED AFEBRILE WBC WNL COMPLETING COURSE OF REMDESIVIR - Current Medication List Current Medications: Active Medications Acetaminophen (Tylenol -) 650 mg PO Q6H PRN PRN Reason: FEVER Last Admin: 02/16/20 08:18 Dose: 650 mg Documented by: Albuterol Sulfate (Ventolin Hfa Inhaler -) 1 puff IH Q4H PRN PRN Reason: SHORT OF BREATH/WHEEZING Albuterol/Ipratropium (Duoneb -) 1 amp NEB RTID [facility] Apixaban (Eliquis -) 5 mg PO BID [facility] Last Admin: 02/17/20 09:02 Dose: 5 mg Documented by: Ascorbic Acid (Vitamin C -) 500 mg PO BID [facility] Last Admin: 02/17/20 09:02 Dose: 500 mg Documented by: Aspirin (Asa -) 81 mg PO DAILY [facility] Last Admin: 02/17/20 09:02 Dose: 81 mg Documented by: Cholecalciferol (Vitamin D3 -) 2,000 unit PO DAILY [facility] Last Admin: 02/17/20 09:02 Dose: 2,000 unit Documented by: Clotrimazole (Lotrimin 1% Cream -) 1 applic TP BID [facility] Last Admin: 02/17/20 09:03 Dose: 1 applic Documented by: Guaifenesin/Codeine Phosphate (Robitussin Ac -) 10 ml PO Q6H PRN PRN Reason: COUGH Last Admin: 02/16/20 10:03 Dose: 10 ml Documented by: Insulin Aspart (Novolog Vial Sliding Scale -) 1 vial SQ ACHS [facility]; Protocol Last Admin: 02/17/20 16:53 Dose: 4 units Documented by: Insulin Detemir (Levemir Vial) 40 units SQ ACBK [facility] Last Admin: 02/17/20 06:07 Dose: 40 unit Documented by: Insulin Detemir (Levemir Vial) 35 units SQ HS [facility] Last Admin: 02/16/20 21:41 Dose: 35 units Documented by: Melatonin (Melatonin) 5 mg PO HS PRN PRN Reason: INSOMNIA Methylprednisolone Sodium Succinate (Solu-Medrol -) 30 mg IVPUSH BID [facility] Last Admin: 02/17/20 14:38 Dose: 30 mg Documented by: Ondansetron HCl (Zofran Injection) 4 mg IVPUSH Q6H PRN PRN Reason: NAUSEA Zinc Sulfate (Orazinc -) 220 mg PO BID SARAH Last Admin: 02/17/20 09:02 Dose: 220 mg Documented by: - Objective Vital Signs: Vital Signs Temperature 97.5 F L 02/17/20 18:00 Pulse Rate 78 02/17/20 18:00 Respiratory Rate 20 02/17/20 18:00 Blood Pressure 156/96 02/17/20 18:00 O2 Sat by Pulse Oximetry (%) 100 02/17/20 12:12 Constitutional: Yes: No Distress, Obese Cardiovascular: Yes: Regular Rate and Rhythm, S1, S2 Respiratory: Yes: CTA Bilaterally Gastrointestinal: Yes: Normal Bowel Sounds, Soft Edema: No Labs: CBC, BMP 02/17/20 06:30 02/17/20 06:30 INR, PTT INR 1.00 (0.83-1.09) 01/25/20 16:29 Assessment/Plan COVID-19+ S/P TOCILIMUZAB, PLASMA COMPLETEING COURSE OF REMDESIVIR PNEUMONITIS + SPUTUM C/S H. PARAINFLUENZA QUANTIFERON (-)
[2020-02-17] MEDS: ALBUTEROL SO4 2.5/IPRATROPIUM 0.5 INH SOL 3 ML VIAL.NEB. NEB SCH (22:26)
[2020-02-18] MEDS: INSULIN (LEVEMIR) 100 UNITS/ML UNITS SQ SCH ×2 (06:41→21:40)
[2020-02-18] MEDS: INSULIN SLIDING SCALE (NOVOLOG) 1 VIAL SQ SCH ×4 (06:42→21:41)
[2020-02-18] MEDS: ALBUTEROL SO4 2.5/IPRATROPIUM 0.5 INH SOL 3 ML VIAL.NEB. NEB SCH ×3 (08:00→20:35)
--- NOTE | 2020-02-18 08:01 | PN ---
Physical Exam: SUBJECTIVE: Patient seen and examined. No acute events noted. OBJECTIVE: Vital Signs Period Temp Pulse Resp BP Sys/Miner Pulse Ox Last 24 Hr 97.5 F-99.9 F 71-86 18-20 111-156/65-96 91-100 GENERAL: The patient is awake, alert, and fully oriented, in no acute distress. LUNGS: NO ISO STETH IN ROOM HEART: NO ISO STETH IN ROOM. ABDOMEN: Soft, nontender, nondistended. EXTREMITIES: 2+ pulses, warm, well-perfused, no edema. Laboratory Results - last 24 hr 02/17/20 02/17/20 02/18/20 06:30 06:30 05:17 WBC 10.0 RBC 5.14 Hgb 12.5 Hct 38.9 MCV 75.7 L MCH 24.3 L MCHC 32.1 RDW 16.0 H Plt Count 279 MPV 9.1 Absolute Neuts (auto) 6.4 Neutrophils % 63.4 D Lymphocytes % 24.9 D Monocytes % 5.2 D Eosinophils % 5.3 H D Basophils % 1.2 D Nucleated RBC % 0 Sodium 136 Potassium 4.2 Chloride 98 Carbon Dioxide 32 Anion Gap 6 L BUN 16.5 Creatinine 0.7 Est GFR (CKD-EPI)AfAm 141.70 Est GFR (CKD-EPI)NonAf 122.26 POC Glucometer 249 Random Glucose 203 H Calcium 8.7 Phosphorus 4.0 Magnesium 2.1 Ferritin 526.4 H Total Bilirubin 0.9 AST 15 ALT 43 Alkaline Phosphatase 130 H LD Total 498 H Total Protein 6.4 Albumin 3.2 L Active Medications Generic Name Dose Route Start Last Admin Trade Name Freq PRN Reason Stop Dose Admin Acetaminophen 650 mg 02/14/20 19:42 02/16/20 08:18 Tylenol - PO 650 mg Q6H PRN Administration FEVER Albuterol Sulfate 1 puff 02/14/20 19:42 Ventolin Hfa Inhaler - IH Q4H PRN SHORT OF BREATH/WHEEZING Albuterol/Ipratropium 1 amp 02/17/20 20:00 02/17/20 22:26 Duoneb - NEB 1 amp RTID SARAH Administration Apixaban 5 mg 02/14/20 22:00 02/17/20 23:36 Eliquis - PO 5 mg BID SARAH Administration Ascorbic Acid 500 mg 02/14/20 22:00 02/17/20 23:37 Vitamin C - PO 500 mg BID SARAH Administration Aspirin 81 mg 02/15/20 10:00 02/17/20 09:02 Asa - PO 81 mg DAILY SARAH Administration Cholecalciferol 2,000 unit 02/15/20 11:53 02/17/20 09:02 Vitamin D3 - PO 2,000 unit DAILY SARAH Administration Clotrimazole 1 applic 02/14/20 22:00 02/17/20 23:36 Lotrimin 1% Cream - TP 1 applic BID SARAH Administration Guaifenesin/Codeine Phosphate 10 ml 02/14/20 19:42 02/16/20 10:03 Robitussin Ac - PO 10 ml Q6H PRN Administration COUGH Insulin Aspart 1 vial 02/14/20 22:00 02/18/20 06:42 Novolog Vial Sliding Scale - SQ 4 units ACHS SARAH Administration Protocol Insulin Detemir 40 units 02/17/20 07:00 02/18/20 06:41 Levemir Vial SQ 40 unit ACBK SARAH Administration Insulin Detemir 35 units 02/16/20 22:00 02/17/20 23:36 Levemir Vial SQ 35 units HS SARAH Administration Melatonin 5 mg 02/14/20 19:42 Melatonin PO HS PRN INSOMNIA Methylprednisolone Sodium Succinate 30 mg 02/17/20 13:00 02/17/20 23:37 Solu-Medrol - IVPUSH 30 mg BID SARAH Administration Ondansetron HCl 4 mg 02/14/20 19:42 Zofran Injection IVPUSH Q6H PRN NAUSEA Zinc Sulfate 220 mg 02/14/20 22:00 02/17/20 23:37 Orazinc - PO 220 mg BID SARAH Administration ASSESSMENT/PLAN: Pt is a 34 y/o male with HTN (not on meds) and newly diagnosed DM on admission, who presents with 3-4 days of increasing dyspnea and diarrhea. Two days ago he began having chest pain with coughing. 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 #COVID 19 Pneumonia - adjust between NRB and BiPAP (night) as needed to keep O2 >90, taper oxygen as tolerated - s/p abx X 10 days - solumedrol 30 BID reinstated yesterday - inflammatory markers LD ferritin Decreased, CRP increased. rpt in am -vitamin C/vitamin D,zinc, - full AC 5 BID eliquis - ID following- s/p convalescent plasma 01/25, s/p tocolizumab 01/29 - s/p remdisivir dose 01/30 given - prognosis guarded not much more to do other than watchful waiting at this time #Newly diagnosed DM -A1C 10.5 -BGMs, c/w Levemir 40 in AM and 35 HS -goal BG 140-180, on steroids likely worsening it DVT Ppx Eliquis 5mg BID FEN PO fluids monitor labs diabetic diet dispo: Tele monitoring Visit type - Emergency Visit Emergency Visit: Yes ED Registration Date: 01/25/20 Care time: The patient presented to the Emergency Department on the above date and was hospitalized for further evaluation of their emergent condition. - New Patient This patient is new to me today: No - Critical Care Critical Care patient: No - Discharge Referral Referred to [facility] Med [facility] No ATTENDING PHYSICIAN STATEMENT I saw and evaluated the patient. I reviewed the resident's note and discussed the case with the resident. I agree with the resident's findings and plan as documented. SUBJECTIVE: OBJECTIVE: ASSESSMENT AND PLAN:
[2020-02-18 08:20] LABS: EOS % 0.1 % (0-4.5); HEMATOCRIT 37.8 % (35.4-49); LYMPH % 11.7 % (8-40); MCH 24.1 pg (25.7-33.7); MCHC 31.7 g/dl (32.0-35.9); MEAN PLT VOLUME 9.4 fl (7.5-11.1); MONO % 4.1 % (3.8-10.2); NEUT % 83.1 % (42.8-82.8); PLATELET COUNT 253 K/MM3 (134-434); RBC 4.98 M/mm3 (4.00-5.60); RDW 16.4 % (11.9-15.9)
[2020-02-18 08:29] LABS: BILIRUBIN,TOTAL 0.6 mg/dL (0.2-1); BLOOD UREA NITROGEN 16.3 mg/dL (7-18); CALCIUM 8.9 mg/dL (8.5-10.1); CREATININE 0.8 mg/dL (0.55-1.3); MAGNESIUM 2.1 mg/dL (1.8-2.4); PHOSPHOROUS 4.2 mg/dL (2.5-4.9); POTASSIUM 4.9 mmol/L (3.5-5.1); TOT PROT 6.2 g/dl (6.4-8.2)
[2020-02-18] MEDS: ASCORBIC ACID 500 MG TABLET (FP) PO SCH ×2 (10:46→21:41)
[2020-02-18] MEDS: ZINC SULFATE 220 MG CAPSULE (FP) PO SCH ×2 (10:46→21:41)
[2020-02-18] MEDS: ASPIRIN 81 MG CHEWABLE TABLETS PO SCH (10:46)
[2020-02-18] MEDS: APIXABAN 5 MG TABLET PO SCH ×2 (10:46→21:40)
[2020-02-18] MEDS: CHOLECALCIFEROL (VIT D3) 1,000 UNIT (25 MCG) TABLET PO SCH (10:46)
[2020-02-18] MEDS: CLOTRIMAZOLE 1% CREAM 15 GM TUBE TP SCH ×2 (10:46→21:41)
[2020-02-18] MEDS: methylPREDNISolone NA SUCC 40 MG/1 ML VIAL IVPUSH SCH ×2 (10:47→21:41)
[2020-02-18] MEDS: guaiFENesin/CODEINE 10 ML UNIT-DOSE CUPS PO PRN (11:05)
--- NOTE | 2020-02-18 11:40 | PN ---
Progress Note (short form) - Note Progress Note: PULMONARY Breathing slightly improved but still requiring NRB and desaturates with ambulating or coughing fits. Completed remdesivir course. Vital Signs Period Temp Pulse Resp BP Sys/Miner Pulse Ox Last 24 Hr 97.5 F-99.9 F 71-86 18-20 111-156/65-96 91-100 Gen: less tachypneic Heart: RRR Lung: distant breath sounds Abd: soft, nontender Ext: no edema CBC, BMP 02/18/20 06:01 02/18/20 06:01 Active Medications Acetaminophen (Tylenol -) 650 mg PO Q6H PRN PRN Reason: FEVER Last Admin: 02/16/20 08:18 Dose: 650 mg Documented by: Albuterol Sulfate (Ventolin Hfa Inhaler -) 1 puff IH Q4H PRN PRN Reason: SHORT OF BREATH/WHEEZING Albuterol/Ipratropium (Duoneb -) 1 amp NEB RTID [facility] Last Admin: 02/18/20 08:00 Dose: Not Given Documented by: Apixaban (Eliquis -) 5 mg PO BID [facility] Last Admin: 02/18/20 10:46 Dose: 5 mg Documented by: Ascorbic Acid (Vitamin C -) 500 mg PO BID [facility] Last Admin: 02/18/20 10:46 Dose: 500 mg Documented by: Aspirin (Asa -) 81 mg PO DAILY [facility] Last Admin: 02/18/20 10:46 Dose: 81 mg Documented by: Cholecalciferol (Vitamin D3 -) 2,000 unit PO DAILY [facility] Last Admin: 02/18/20 10:46 Dose: 2,000 unit Documented by: Clotrimazole (Lotrimin 1% Cream -) 1 applic TP BID [facility] Last Admin: 02/18/20 10:46 Dose: 1 applic Documented by: Guaifenesin/Codeine Phosphate (Robitussin Ac -) 10 ml PO Q6H PRN PRN Reason: COUGH Last Admin: 02/18/20 11:05 Dose: 10 ml Documented by: Insulin Aspart (Novolog Vial Sliding Scale -) 1 vial SQ ACHS [facility]; Protocol Last Admin: 02/18/20 11:38 Dose: 6 units Documented by: Insulin Detemir (Levemir Vial) 40 units SQ ACBK [facility] Last Admin: 02/18/20 06:41 Dose: 40 unit Documented by: Insulin Detemir (Levemir Vial) 35 units SQ HS [facility] Last Admin: 02/17/20 23:36 Dose: 35 units Documented by: Melatonin (Melatonin) 5 mg PO HS PRN PRN Reason: INSOMNIA Methylprednisolone Sodium Succinate (Solu-Medrol -) 30 mg IVPUSH BID [facility] Last Admin: 02/18/20 10:47 Dose: 30 mg Documented by: Ondansetron HCl (Zofran Injection) 4 mg IVPUSH Q6H PRN PRN Reason: NAUSEA Zinc Sulfate (Orazinc -) 220 mg PO BID [facility] Last Admin: 02/18/20 10:46 Dose: 220 mg Documented by: A/P Acute Hypoxic Respiratory Failure COVID Pneumonia HTN DM - s/p remdesivir course - s/p tocilizumab infusion - continue medrol - empiric anticoagulation - completed empiric antibiotics - received convalescent plasma transfusion - trend ferritin, LDH, CRP - titrate O2 to keep SpO2 >90% - BiPAP as needed
--- NOTE | 2020-02-18 12:53 | PN ---
Teaching Attending Note Name of Resident: Mynor Curry ATTENDING PHYSICIAN STATEMENT I saw and evaluated the patient. I reviewed the resident's note and discussed the case with the resident. I agree with the resident's findings and plan as documented. SUBJECTIVE: continues on 100% NR, slightly better OBJECTIVE: Vital Signs Temperature 99.6 F 02/18/20 06:00 Pulse Rate 71 02/18/20 06:00 Respiratory Rate 20 02/18/20 06:00 Blood Pressure 137/82 02/18/20 06:00 O2 Sat by Pulse Oximetry (%) 95 02/18/20 05:32 PE:per resident's notes CBCD WBC 9.0 K/mm3 (4.0-10.0) 02/18/20 06:01 RBC 4.98 M/mm3 (4.00-5.60) 02/18/20 06:01 Hgb 12.0 GM/dL (11.7-16.9) 02/18/20 06:01 Hct 37.8 % (35.4-49) 02/18/20 06:01 MCV 76.0 fl (80-96) L 02/18/20 06:01 MCHC 31.7 g/dl (32.0-35.9) L 02/18/20 06:01 RDW 16.4 % (11.9-15.9) H 02/18/20 06:01 Plt Count 253 K/MM3 (134-434) 02/18/20 06:01 MPV 9.4 fl (7.5-11.1) 02/18/20 06:01 CMP Sodium 136 mmol/L (136-145) 02/18/20 06:01 Potassium 4.9 mmol/L (3.5-5.1) 02/18/20 06:01 Chloride 98 mmol/L (98-107) 02/18/20 06:01 Carbon Dioxide 33 mmol/L (21-32) H 02/18/20 06:01 Anion Gap 5 MMOL/L (8-16) L 02/18/20 06:01 BUN 16.3 mg/dL (7-18) 02/18/20 06:01 Creatinine 0.8 mg/dL (0.55-1.3) 02/18/20 06:01 Random Glucose 269 mg/dL (74-106) H 02/18/20 06:01 Calcium 8.9 mg/dL (8.5-10.1) 02/18/20 06:01 Total Bilirubin 0.6 mg/dL (0.2-1) 02/18/20 06:01 AST 12 U/L (15-37) L 02/18/20 06:01 ALT 38 U/L (13-61) 02/18/20 06:01 Alkaline Phosphatase 109 U/L (45-117) 02/18/20 06:01 Total Protein 6.2 g/dl (6.4-8.2) L 02/18/20 06:01 Albumin 3.0 g/dl (3.4-5.0) L 02/18/20 06:01 CARDIAC ENZYMES Creatine Kinase 309 U/L (26-308) H 01/31/20 06:25 Troponin I < 0.02 ng/ml (0.00-0.05) 01/31/20 06:25 Current Medications Generic Name Dose Route Start Last Admin Trade Name Freq PRN Reason Stop Dose Admin Acetaminophen 650 mg 02/14/20 19:42 02/16/20 08:18 Tylenol - PO 650 mg Q6H PRN Administration FEVER Albuterol Sulfate 1 puff 02/14/20 19:42 Ventolin Hfa Inhaler - IH Q4H PRN SHORT OF BREATH/WHEEZING Albuterol/Ipratropium 1 amp 02/17/20 20:00 02/18/20 08:00 Duoneb - NEB Not Given RTID SARAH Apixaban 5 mg 02/14/20 22:00 02/18/20 10:46 Eliquis - PO 5 mg BID SARAH Administration Ascorbic Acid 500 mg 02/14/20 22:00 02/18/20 10:46 Vitamin C - PO 500 mg BID SARAH Administration Aspirin 81 mg 02/15/20 10:00 02/18/20 10:46 Asa - PO 81 mg DAILY SARAH Administration Cholecalciferol 2,000 unit 02/15/20 11:53 02/18/20 10:46 Vitamin D3 - PO 2,000 unit DAILY SARAH Administration Clotrimazole 1 applic 02/14/20 22:00 02/18/20 10:46 Lotrimin 1% Cream - TP 1 applic BID SARAH Administration Guaifenesin/Codeine Phosphate 10 ml 02/14/20 19:42 02/18/20 11:05 Robitussin Ac - PO 10 ml Q6H PRN Administration COUGH Insulin Aspart 1 vial 02/14/20 22:00 02/18/20 11:38 Novolog Vial Sliding Scale - SQ 6 units ACHS SARAH Administration Protocol Insulin Detemir 40 units 02/17/20 07:00 02/18/20 06:41 Levemir Vial SQ 40 unit ACBK SARAH Administration Insulin Detemir 35 units 02/16/20 22:00 02/17/20 23:36 Levemir Vial SQ 35 units HS SARAH Administration Melatonin 5 mg 02/14/20 19:42 Melatonin PO HS PRN INSOMNIA Methylprednisolone Sodium Succinate 30 mg 02/17/20 13:00 02/18/20 10:47 Solu-Medrol - IVPUSH 30 mg BID SARAH Administration Ondansetron HCl 4 mg 02/14/20 19:42 Zofran Injection IVPUSH Q6H PRN NAUSEA Zinc Sulfate 220 mg 02/14/20 22:00 02/18/20 10:46 Orazinc - PO 220 mg BID SARAH Administration Microbiology 01/27/20 09:30 Blood - Peripheral Venous Blood Culture - Final NO GROWTH AFTER 5 DAYS INCUBATION 01/27/20 09:30 Blood - Peripheral Venous Blood Culture - Final NO GROWTH AFTER 5 DAYS INCUBATION 01/25/20 16:29 Blood - Peripheral Venous Blood Culture - Final NO GROWTH AFTER 5 DAYS INCUBATION 01/25/20 16:29 Blood - Peripheral Venous Blood Culture - Final NO GROWTH AFTER 5 DAYS INCUBATION 01/27/20 14:15 Sputum - Expectorated Gram Stain - Final 01/27/20 14:15 Sputum - Expectorated Sputum Culture - Final Haemophilus Parainfluenzae Ii 01/27/20 09:20 Urine - Urine Clean Catch Legionella Antigen - Final 01/27/20 09:20 Urine - Urine Clean Catch Streptococcus pneumoniae Antigen (M - Final TB test negative ASSESSMENT AND PLAN: TB test negative ASSESSMENT AND PLAN: This patient is a 34yom with PMhx of HTN (not on meds) and newly diagnosed T2DM on admission, who presents with 3-4 days of increasing dyspnea and diarrhea. 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 #COVID 19 Pneumonia: improving on medrol/vit c/d/z on Eliquis 5mg bid s/p tocolizumab on 01/29, s/p remdesivir completed 5 doses , s/p convalescent plasma 01/25, s/p abx X 10 days, improving. continue to follow markers. # H. parainfluenzae on the sputum #T2DM with new dx, with A1c 10.5, SS with coverage DVT Ppx: Eliquis 5mg BID
--- NOTE | 2020-02-18 20:31 | PN ---
Progress Note, Physician Chief Complaint: AWAKE, ALERT IN BED OFFERS NO COMPLAINTS BREATHING NON LABORED AFEBRILE WBC WNL COMPLETING COURSE OF REMDESIVIR - Current Medication List Current Medications: Active Medications Acetaminophen (Tylenol -) 650 mg PO Q6H PRN PRN Reason: FEVER Last Admin: 02/16/20 08:18 Dose: 650 mg Documented by: Albuterol Sulfate (Ventolin Hfa Inhaler -) 1 puff IH Q4H PRN PRN Reason: SHORT OF BREATH/WHEEZING Albuterol/Ipratropium (Duoneb -) 1 amp NEB RTID [facility] Last Admin: 02/18/20 14:00 Dose: Not Given Documented by: Apixaban (Eliquis -) 5 mg PO BID [facility] Last Admin: 02/18/20 10:46 Dose: 5 mg Documented by: Ascorbic Acid (Vitamin C -) 500 mg PO BID [facility] Last Admin: 02/18/20 10:46 Dose: 500 mg Documented by: Aspirin (Asa -) 81 mg PO DAILY [facility] Last Admin: 02/18/20 10:46 Dose: 81 mg Documented by: Cholecalciferol (Vitamin D3 -) 2,000 unit PO DAILY [facility] Last Admin: 02/18/20 10:46 Dose: 2,000 unit Documented by: Clotrimazole (Lotrimin 1% Cream -) 1 applic TP BID [facility] Last Admin: 02/18/20 10:46 Dose: 1 applic Documented by: Guaifenesin/Codeine Phosphate (Robitussin Ac -) 10 ml PO Q6H PRN PRN Reason: COUGH Last Admin: 02/18/20 11:05 Dose: 10 ml Documented by: Insulin Aspart (Novolog Vial Sliding Scale -) 1 vial SQ ACHS [facility]; Protocol Last Admin: 02/18/20 17:06 Dose: 6 units Documented by: Insulin Detemir (Levemir Vial) 40 units SQ ACBK [facility] Last Admin: 02/18/20 06:41 Dose: 40 unit Documented by: Insulin Detemir (Levemir Vial) 35 units SQ HS [facility] Last Admin: 02/17/20 23:36 Dose: 35 units Documented by: Melatonin (Melatonin) 5 mg PO HS PRN PRN Reason: INSOMNIA Methylprednisolone Sodium Succinate (Solu-Medrol -) 30 mg IVPUSH BID [facility] Last Admin: 05/23/20 10:47 Dose: 30 mg Documented by: Ondansetron HCl (Zofran Injection) 4 mg IVPUSH Q6H PRN PRN Reason: NAUSEA Zinc Sulfate (Orazinc -) 220 mg PO BID SARAH Last Admin: 02/18/20 10:46 Dose: 220 mg Documented by: - Objective Vital Signs: Vital Signs Temperature 98 F 02/18/20 18:00 Pulse Rate 88 02/18/20 18:00 Respiratory Rate 20 02/18/20 18:00 Blood Pressure 143/67 02/18/20 18:00 O2 Sat by Pulse Oximetry (%) 100 02/18/20 09:00 Constitutional: Yes: No Distress, Obese Eyes: Yes: Conjunctiva Clear Cardiovascular: Yes: Regular Rate and Rhythm, S1, S2 Respiratory: Yes: CTA Bilaterally Gastrointestinal: Yes: Normal Bowel Sounds, Soft Edema: LLE: 2+, RLE: 2+ Labs: CBC, BMP 02/18/20 06:01 02/18/20 06:01 INR, PTT INR 1.00 (0.83-1.09) 01/25/20 16:29 Assessment/Plan COVID-19+ S/P TOCILIMUZAB, PLASMA COMPLETING COURSE OF REMDESIVIR PNEUMONITIS + SPUTUM C/S H. PARAINFLUENZA QUANTIFERON (-)
[2020-02-19] MEDS: INSULIN (LEVEMIR) 100 UNITS/ML UNITS SQ SCH ×2 (06:51→21:32)
[2020-02-19] MEDS: INSULIN SLIDING SCALE (NOVOLOG) 1 VIAL SQ SCH ×4 (06:51→21:33)
--- NOTE | 2020-02-19 07:28 | PN ---
Physical Exam: SUBJECTIVE: Patient seen and examined. No acute events noted, last night pt becomes sob after 2 mins on nebulizer. Very high O2 requirements. OBJECTIVE: Vital Signs Period Temp Pulse Resp BP Sys/Miner Pulse Ox Last 24 Hr 96.8 F-98.9 F 69-97 18-20 103-143/56-87 96-100 GENERAL: The patient is awake, alert, and fully oriented, in no acute distress. LUNGS: Breath sounds reduced with poor air entry. HEART: Regular rate and rhythm, S1, S2 without murmur, rub or gallop. ABDOMEN: Soft, nontender, nondistended. EXTREMITIES: 2+ pulses, warm, well-perfused, no edema. Laboratory Results - last 24 hr 02/18/20 02/18/20 02/18/20 06:01 06:01 06:01 WBC 9.0 RBC 4.98 Hgb 12.0 Hct 37.8 MCV 76.0 L MCH 24.1 L MCHC 31.7 L RDW 16.4 H Plt Count 253 MPV 9.4 Absolute Neuts (auto) 7.5 Neutrophils % 83.1 H D Lymphocytes % 11.7 D Monocytes % 4.1 Eosinophils % 0.1 D Basophils % 1.0 Nucleated RBC % 0 D-Dimer 5387 H Sodium 136 Potassium 4.9 Chloride 98 Carbon Dioxide 33 H Anion Gap 5 L BUN 16.3 Creatinine 0.8 Est GFR (CKD-EPI)AfAm 134.14 Est GFR (CKD-EPI)NonAf 115.74 POC Glucometer Random Glucose 269 H Calcium 8.9 Phosphorus 4.2 Magnesium 2.1 Ferritin 506.5 H Total Bilirubin 0.6 AST 12 L ALT 38 Alkaline Phosphatase 109 LD Total 434 H C-Reactive Protein 1.4 H Total Protein 6.2 L Albumin 3.0 L 02/18/20 02/18/20 02/19/20 17:04 21:33 05:57 WBC RBC Hgb Hct MCV MCH MCHC RDW Plt Count MPV Absolute Neuts (auto) Neutrophils % Lymphocytes % Monocytes % Eosinophils % Basophils % Nucleated RBC % D-Dimer Sodium Potassium Chloride Carbon Dioxide Anion Gap BUN Creatinine Est GFR (CKD-EPI)AfAm Est GFR (CKD-EPI)NonAf POC Glucometer 266 292 236 Random Glucose Calcium Phosphorus Magnesium Ferritin Total Bilirubin AST ALT Alkaline Phosphatase LD Total C-Reactive Protein Total Protein Albumin Active Medications Generic Name Dose Route Start Last Admin Trade Name Freq PRN Reason Stop Dose Admin Acetaminophen 650 mg 02/14/20 19:42 02/16/20 08:18 Tylenol - PO 650 mg Q6H PRN Administration FEVER Albuterol Sulfate 1 puff 02/14/20 19:42 Ventolin Hfa Inhaler - IH Q4H PRN SHORT OF BREATH/WHEEZING Albuterol/Ipratropium 1 amp 02/17/20 20:00 02/18/20 20:35 Duoneb - NEB 1 amp RTID SARAH Administration Apixaban 5 mg 02/14/20 22:00 02/18/20 21:40 Eliquis - PO 5 mg BID SARAH Administration Ascorbic Acid 500 mg 02/14/20 22:00 02/18/20 21:41 Vitamin C - PO 500 mg BID SARAH Administration Aspirin 81 mg 02/15/20 10:00 02/18/20 10:46 Asa - PO 81 mg DAILY SARAH Administration Cholecalciferol 2,000 unit 02/15/20 11:53 02/18/20 10:46 Vitamin D3 - PO 2,000 unit DAILY SARAH Administration Clotrimazole 1 applic 02/14/20 22:00 02/18/20 21:41 Lotrimin 1% Cream - TP 1 applic BID SARAH Administration Guaifenesin/Codeine Phosphate 10 ml 02/14/20 19:42 02/18/20 11:05 Robitussin Ac - PO 10 ml Q6H PRN Administration COUGH Insulin Aspart 1 vial 02/14/20 22:00 02/19/20 06:51 Novolog Vial Sliding Scale - SQ 4 units ACHS [facility] Administration Protocol Insulin Detemir 40 units 02/17/20 07:00 02/19/20 06:51 Levemir Vial SQ 40 unit ACBK SARAH Administration Insulin Detemir 35 units 02/16/20 22:00 02/18/20 21:40 Levemir Vial SQ 35 units HS SARAH Administration Melatonin 5 mg 02/14/20 19:42 Melatonin PO HS PRN INSOMNIA Methylprednisolone Sodium Succinate 30 mg 02/17/20 13:00 02/18/20 21:41 Solu-Medrol - IVPUSH 30 mg BID SARAH Administration Ondansetron HCl 4 mg 02/14/20 19:42 Zofran Injection IVPUSH Q6H PRN NAUSEA Zinc Sulfate 220 mg 02/14/20 22:00 02/18/20 21:41 Orazinc - PO 220 mg BID SARAH Administration ASSESSMENT/PLAN: Pt is a 34 y/o male with HTN (not on meds) and newly diagnosed DM on admission, who presents with 3-4 days of increasing dyspnea and diarrhea. Two days ago he began having chest pain with coughing. 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 #COVID 19 Pneumonia - adjust between NRB and BiPAP (night) as needed to keep O2 >90, taper oxygen as tolerated - s/p abx X 10 days - solumedrol 30 BID continue - inflammatory markers LD ferritin Decreased, CRP increased. -vitamin C/vitamin D,zinc, - full AC 5 BID eliquis - ID following- s/p convalescent plasma 01/25, s/p tocolizumab 01/29 - s/p remdisivir dose 01/30 given - prognosis guarded not much more to do other than watchful waiting at this time #Newly diagnosed DM -A1C 10.5 -BGMs, c/w Levemir 40 in AM and 35 HS -goal BG 140-180, on steroids likely worsening it DVT Ppx Eliquis 5mg BID FEN PO fluids monitor labs diabetic diet dispo: Tele monitoring Visit type - Emergency Visit Emergency Visit: Yes ED Registration Date: 01/25/20 Care time: The patient presented to the Emergency Department on the above date and was hospitalized for further evaluation of their emergent condition. - New Patient This patient is new to me today: No - Critical Care Critical Care patient: No - Discharge Referral Referred to [facility] Med P.C.: No ATTENDING PHYSICIAN STATEMENT I saw and evaluated the patient. I reviewed the resident's note and discussed the case with the resident. I agree with the resident's findings and plan as documented. SUBJECTIVE: OBJECTIVE: ASSESSMENT AND PLAN:
[2020-02-19 08:18] LABS: BASO % 0.6 % (0-2.0); HEMATOCRIT 38.3 % (35.4-49); HEMOGLOBIN 12.2 GM/dL (11.7-16.9); LYMPH % 15.7 % (8-40); MCH 24.2 pg (25.7-33.7); MCHC 31.7 g/dl (32.0-35.9); MEAN CELL VOLUME 76.2 fl (80-96); MEAN PLT VOLUME 9.6 fl (7.5-11.1); MONO % 6.8 % (3.8-10.2); NEUT % 74.9 % (42.8-82.8); PLATELET COUNT 245 K/MM3 (134-434); RBC 5.03 M/mm3 (4.00-5.60); RDW 16.8 % (11.9-15.9)
[2020-02-19 08:46] LABS: BILIRUBIN,TOTAL 0.8 mg/dL (0.2-1); BLOOD UREA NITROGEN 16.7 mg/dL (7-18); CALCIUM 8.6 mg/dL (8.5-10.1); CREATININE 0.8 mg/dL (0.55-1.3); POTASSIUM 4.7 mmol/L (3.5-5.1); TOT PROT 6.2 g/dl (6.4-8.2)
[2020-02-19] MEDS: ALBUTEROL SO4 2.5/IPRATROPIUM 0.5 INH SOL 3 ML VIAL.NEB. NEB SCH ×3 (08:50→20:53)
[2020-02-19] MEDS: methylPREDNISolone NA SUCC 40 MG/1 ML VIAL IVPUSH SCH ×2 (09:50→21:33)
[2020-02-19] MEDS: guaiFENesin/CODEINE 10 ML UNIT-DOSE CUPS PO PRN ×2 (09:50→21:33)
[2020-02-19] MEDS: CHOLECALCIFEROL (VIT D3) 1,000 UNIT (25 MCG) TABLET PO SCH (09:50)
[2020-02-19] MEDS: APIXABAN 5 MG TABLET PO SCH ×2 (09:51→21:32)
[2020-02-19] MEDS: ZINC SULFATE 220 MG CAPSULE (FP) PO SCH ×2 (09:51→21:33)
[2020-02-19] MEDS: ASCORBIC ACID 500 MG TABLET (FP) PO SCH ×2 (09:51→21:33)
[2020-02-19] MEDS: ASPIRIN 81 MG CHEWABLE TABLETS PO SCH (09:51)
[2020-02-19] MEDS: CLOTRIMAZOLE 1% CREAM 15 GM TUBE TP SCH ×2 (10:37→21:32)
--- NOTE | 2020-02-19 11:29 | PN ---
Progress Note (short form) - Note Progress Note: PULMONARY Breathing about the same as yesterday, still requiring NRB and desaturates with ambulating or coughing fits. Completed remdesivir course. Vital Signs Period Temp Pulse Resp BP Sys/Miner Pulse Ox Last 24 Hr 96.8 F-98.9 F 69-96 18-20 103-143/56-87 92-100 Gen: less tachypneic Heart: RRR Lung: distant breath sounds Abd: soft, nontender Ext: no edema CBC, BMP 02/19/20 06:15 02/19/20 06:15 Active Medications Acetaminophen (Tylenol -) 650 mg PO Q6H PRN PRN Reason: FEVER Last Admin: 02/16/20 08:18 Dose: 650 mg Documented by: Albuterol Sulfate (Ventolin Hfa Inhaler -) 1 puff IH Q4H PRN PRN Reason: SHORT OF BREATH/WHEEZING Albuterol/Ipratropium (Duoneb -) 1 amp NEB RTID [facility] Last Admin: 02/19/20 08:50 Dose: 1 amp Documented by: Apixaban (Eliquis -) 5 mg PO BID [facility] Last Admin: 02/19/20 09:51 Dose: 5 mg Documented by: Ascorbic Acid (Vitamin C -) 500 mg PO BID [facility] Last Admin: 02/19/20 09:51 Dose: 500 mg Documented by: Aspirin (Asa -) 81 mg PO DAILY [facility] Last Admin: 02/19/20 09:51 Dose: 81 mg Documented by: Cholecalciferol (Vitamin D3 -) 2,000 unit PO DAILY [facility] Last Admin: 02/19/20 09:50 Dose: 2,000 unit Documented by: Clotrimazole (Lotrimin 1% Cream -) 1 applic TP BID [facility] Last Admin: 02/19/20 10:37 Dose: 1 applic Documented by: Guaifenesin/Codeine Phosphate (Robitussin Ac -) 10 ml PO Q6H PRN PRN Reason: COUGH Last Admin: 02/19/20 09:50 Dose: 10 ml Documented by: Insulin Aspart (Novolog Vial Sliding Scale -) 1 vial SQ ACHS [facility]; Protocol Last Admin: 02/19/20 06:51 Dose: 4 units Documented by: Insulin Detemir (Levemir Vial) 40 units SQ ACBK [facility] Last Admin: 02/19/20 06:51 Dose: 40 unit Documented by: Insulin Detemir (Levemir Vial) 35 units SQ HS [facility] Last Admin: 02/18/20 21:40 Dose: 35 units Documented by: Melatonin (Melatonin) 5 mg PO HS PRN PRN Reason: INSOMNIA Methylprednisolone Sodium Succinate (Solu-Medrol -) 30 mg IVPUSH BID [facility] Last Admin: 02/19/20 09:50 Dose: 30 mg Documented by: Ondansetron HCl (Zofran Injection) 4 mg IVPUSH Q6H PRN PRN Reason: NAUSEA Zinc Sulfate (Orazinc -) 220 mg PO BID [facility] Last Admin: 02/19/20 09:51 Dose: 220 mg Documented by: A/P Acute Hypoxic Respiratory Failure COVID Pneumonia ARDS HTN DM - s/p remdesivir course - s/p tocilizumab infusion - continue medrol - empiric anticoagulation - completed empiric antibiotics - received convalescent plasma transfusion - trend ferritin, LDH, CRP - titrate O2 to keep SpO2 >90% - BiPAP as needed
--- NOTE | 2020-02-19 14:34 | PN ---
Teaching Attending Note Name of Resident: Mynor Curry ATTENDING PHYSICIAN STATEMENT I saw and evaluated the patient. I reviewed the resident's note and discussed the case with the resident. I agree with the resident's findings and plan as documented. SUBJECTIVE: Patient is better , continues to be on NR. OBJECTIVE: Vital Signs Temperature 97.7 F 02/19/20 14:00 Pulse Rate 79 02/19/20 14:00 Respiratory Rate 20 02/19/20 14:00 Blood Pressure 126/83 02/19/20 14:00 O2 Sat by Pulse Oximetry (%) 97 02/19/20 09:00 PE:per resident's note CBCD WBC 10.0 K/mm3 (4.0-10.0) 02/19/20 06:15 RBC 5.03 M/mm3 (4.00-5.60) 02/19/20 06:15 Hgb 12.2 GM/dL (11.7-16.9) 02/19/20 06:15 Hct 38.3 % (35.4-49) 02/19/20 06:15 MCV 76.2 fl (80-96) L 02/19/20 06:15 MCHC 31.7 g/dl (32.0-35.9) L 02/19/20 06:15 RDW 16.8 % (11.9-15.9) H 02/19/20 06:15 Plt Count 245 K/MM3 (134-434) 02/19/20 06:15 MPV 9.6 fl (7.5-11.1) 02/19/20 06:15 CMP Sodium 137 mmol/L (136-145) 02/19/20 06:15 Potassium 4.7 mmol/L (3.5-5.1) 02/19/20 06:15 Chloride 98 mmol/L (98-107) 02/19/20 06:15 Carbon Dioxide 32 mmol/L (21-32) 02/19/20 06:15 Anion Gap 7 MMOL/L (8-16) L 02/19/20 06:15 BUN 16.7 mg/dL (7-18) 02/19/20 06:15 Creatinine 0.8 mg/dL (0.55-1.3) 02/19/20 06:15 Random Glucose 240 mg/dL (74-106) H 02/19/20 06:15 Calcium 8.6 mg/dL (8.5-10.1) 02/19/20 06:15 Total Bilirubin 0.8 mg/dL (0.2-1) 02/19/20 06:15 AST 13 U/L (15-37) L 02/19/20 06:15 ALT 38 U/L (13-61) 02/19/20 06:15 Alkaline Phosphatase 100 U/L (45-117) 02/19/20 06:15 Total Protein 6.2 g/dl (6.4-8.2) L 02/19/20 06:15 Albumin 3.0 g/dl (3.4-5.0) L 02/19/20 06:15 CARDIAC ENZYMES Creatine Kinase 309 U/L (26-308) H 01/31/20 06:25 Troponin I < 0.02 ng/ml (0.00-0.05) 01/31/20 06:25 Current Medications Generic Name Dose Route Start Last Admin Trade Name Freq PRN Reason Stop Dose Admin Acetaminophen 650 mg 02/14/20 19:42 02/16/20 08:18 Tylenol - PO 650 mg Q6H PRN Administration FEVER Albuterol Sulfate 1 puff 02/14/20 19:42 Ventolin Hfa Inhaler - IH Q4H PRN SHORT OF BREATH/WHEEZING Albuterol/Ipratropium 1 amp 02/17/20 20:00 02/19/20 13:27 Duoneb - NEB Not Given RTID SARAH Apixaban 5 mg 02/14/20 22:00 02/19/20 09:51 Eliquis - PO 5 mg BID SARAH Administration Ascorbic Acid 500 mg 02/14/20 22:00 02/19/20 09:51 Vitamin C - PO 500 mg BID SARAH Administration Aspirin 81 mg 02/15/20 10:00 02/19/20 09:51 Asa - PO 81 mg DAILY SARAH Administration Cholecalciferol 2,000 unit 02/15/20 11:53 02/19/20 09:50 Vitamin D3 - PO 2,000 unit DAILY [facility] Administration Clotrimazole 1 applic 02/14/20 22:00 02/19/20 10:37 Lotrimin 1% Cream - TP 1 applic BID SARAH Administration Guaifenesin/Codeine Phosphate 10 ml 02/14/20 19:42 02/19/20 09:50 Robitussin Ac - PO 10 ml Q6H PRN Administration COUGH Insulin Aspart 1 vial 02/14/20 22:00 02/19/20 12:06 Novolog Vial Sliding Scale - SQ 2 units ACHS SARAH Administration Protocol Insulin Detemir 40 units 02/17/20 07:00 02/19/20 06:51 Levemir Vial SQ 40 unit ACBK SARAH Administration Insulin Detemir 35 units 02/16/20 22:00 02/18/20 21:40 Levemir Vial SQ 35 units HS SARAH Administration Melatonin 5 mg 02/14/20 19:42 Melatonin PO HS PRN INSOMNIA Methylprednisolone Sodium Succinate 30 mg 02/17/20 13:00 02/19/20 09:50 Solu-Medrol - IVPUSH 30 mg BID SARAH Administration Ondansetron HCl 4 mg 02/14/20 19:42 Zofran Injection IVPUSH Q6H PRN NAUSEA Zinc Sulfate 220 mg 02/14/20 22:00 02/19/20 09:51 Orazinc - PO 220 mg BID SARAH Administration Laboratory Tests 02/17/20 02/18/20 02/18/20 06:30 06:01 06:01 D-Dimer 6750 H 5387 H Ferritin 506.5 H LD Total 434 H C-Reactive Protein 1.4 H 02/19/20 02/19/20 06:15 06:15 D-Dimer 3382 H Ferritin 467.9 H LD Total 410 H C-Reactive Protein 1.1 H TB test negative ASSESSMENT AND PLAN: This patient is a 34yom with PMhx of HTN (not on meds) and newly diagnosed T2DM on admission, who presents with 3-4 days of increasing dyspnea and diarrhea. 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 #COVID 19 Pneumonia: improving on medrol/vit c/d/z on Eliquis 5mg bid s/p tocolizumab on 01/29, s/p remdesivir completed 5 doses , s/p convalescent plasma 01/25, s/p abx X 10 days, improving.Trending down , will continue to follow the markers. # H. parainfluenzae on the sputum #T2DM with new dx, with A1c 10.5, SS with coverage DVT Ppx: Eliquis 5mg BID
--- NOTE | 2020-02-19 18:48 | PN ---
Progress Note, Physician Chief Complaint: AWAKE, ALERT IN BED OFFERS NO COMPLAINTS BREATHING SL TACHYPNEIC ON NRB MASK AFEBRILE WBC WNL COMPLETED COURSE OF REMDESIVIR - Current Medication List Current Medications: Active Medications Acetaminophen (Tylenol -) 650 mg PO Q6H PRN PRN Reason: FEVER Last Admin: 02/16/20 08:18 Dose: 650 mg Documented by: Albuterol Sulfate (Ventolin Hfa Inhaler -) 1 puff IH Q4H PRN PRN Reason: SHORT OF BREATH/WHEEZING Albuterol/Ipratropium (Duoneb -) 1 amp NEB RTID [facility] Last Admin: 02/19/20 13:27 Dose: Not Given Documented by: Apixaban (Eliquis -) 5 mg PO BID [facility] Last Admin: 02/19/20 09:51 Dose: 5 mg Documented by: Ascorbic Acid (Vitamin C -) 500 mg PO BID [facility] Last Admin: 02/19/20 09:51 Dose: 500 mg Documented by: Aspirin (Asa -) 81 mg PO DAILY [facility] Last Admin: 02/19/20 09:51 Dose: 81 mg Documented by: Cholecalciferol (Vitamin D3 -) 2,000 unit PO DAILY [facility] Last Admin: 02/19/20 09:50 Dose: 2,000 unit Documented by: Clotrimazole (Lotrimin 1% Cream -) 1 applic TP BID [facility] Last Admin: 02/19/20 10:37 Dose: 1 applic Documented by: Guaifenesin/Codeine Phosphate (Robitussin Ac -) 10 ml PO Q6H PRN PRN Reason: COUGH Last Admin: 02/19/20 09:50 Dose: 10 ml Documented by: Insulin Aspart (Novolog Vial Sliding Scale -) 1 vial SQ ACHS [facility]; Protocol Last Admin: 02/19/20 17:03 Dose: 8 units Documented by: Insulin Detemir (Levemir Vial) 40 units SQ ACBK [facility] Last Admin: 02/19/20 06:51 Dose: 40 unit Documented by: Insulin Detemir (Levemir Vial) 35 units SQ HS [facility] Last Admin: 02/18/20 21:40 Dose: 35 units Documented by: Melatonin (Melatonin) 5 mg PO HS PRN PRN Reason: INSOMNIA Methylprednisolone Sodium Succinate (Solu-Medrol -) 30 mg IVPUSH BID [facility] Last Admin: 02/19/20 09:50 Dose: 30 mg Documented by: Ondansetron HCl (Zofran Injection) 4 mg IVPUSH Q6H PRN PRN Reason: NAUSEA Zinc Sulfate (Orazinc -) 220 mg PO BID [facility] Last Admin: 02/19/20 09:51 Dose: 220 mg Documented by: - Objective Vital Signs: Vital Signs Temperature 97.7 F 02/19/20 14:00 Pulse Rate 79 02/19/20 14:00 Respiratory Rate 20 02/19/20 14:00 Blood Pressure 126/83 02/19/20 14:00 O2 Sat by Pulse Oximetry (%) 97 02/19/20 09:00 Constitutional: Yes: No Distress, Obese Cardiovascular: Yes: Regular Rate and Rhythm, S1, S2 Respiratory: Yes: Diminished Gastrointestinal: Yes: Normal Bowel Sounds, Soft Edema: No Labs: CBC, BMP 02/19/20 06:15 02/19/20 06:15 INR, PTT INR 1.00 (0.83-1.09) 01/25/20 16:29 Assessment/Plan COVID-19+ S/P TOCILIMUZAB, PLASMA COMPLETED COURSE OF REMDESIVIR PNEUMONITIS + SPUTUM C/S H. PARAINFLUENZA QUANTIFERON (-)
[2020-02-20] MEDS: INSULIN SLIDING SCALE (NOVOLOG) 1 VIAL SQ SCH ×4 (06:48→21:34)
[2020-02-20] MEDS: INSULIN (LEVEMIR) 100 UNITS/ML UNITS SQ SCH ×2 (06:48→21:33)
--- NOTE | 2020-02-20 07:10 | PN ---
Progress Note, Physician History of Present Illness: PULMONARY ALERT,ON 100%NRB,STILL C/O SOB - Current Medication List Current Medications: Active Medications Acetaminophen (Tylenol -) 650 mg PO Q6H PRN PRN Reason: FEVER Last Admin: 02/16/20 08:18 Dose: 650 mg Documented by: Albuterol Sulfate (Ventolin Hfa Inhaler -) 1 puff IH Q4H PRN PRN Reason: SHORT OF BREATH/WHEEZING Albuterol/Ipratropium (Duoneb -) 1 amp NEB RTID [facility] Last Admin: 02/19/20 20:53 Dose: Not Given Documented by: Apixaban (Eliquis -) 5 mg PO BID [facility] Last Admin: 02/19/20 21:32 Dose: 5 mg Documented by: Ascorbic Acid (Vitamin C -) 500 mg PO BID [facility] Last Admin: 02/19/20 21:33 Dose: 500 mg Documented by: Aspirin (Asa -) 81 mg PO DAILY [facility] Last Admin: 02/19/20 09:51 Dose: 81 mg Documented by: Cholecalciferol (Vitamin D3 -) 2,000 unit PO DAILY [facility] Last Admin: 02/19/20 09:50 Dose: 2,000 unit Documented by: Clotrimazole (Lotrimin 1% Cream -) 1 applic TP BID [facility] Last Admin: 02/19/20 21:32 Dose: 1 applic Documented by: Guaifenesin/Codeine Phosphate (Robitussin Ac -) 10 ml PO Q6H PRN PRN Reason: COUGH Last Admin: 02/19/20 21:33 Dose: 10 ml Documented by: Insulin Aspart (Novolog Vial Sliding Scale -) 1 vial SQ ACHS [facility]; Protocol Last Admin: 02/20/20 06:48 Dose: 4 units Documented by: Insulin Detemir (Levemir Vial) 40 units SQ ACBK [facility] Last Admin: 02/20/20 06:48 Dose: 40 unit Documented by: Insulin Detemir (Levemir Vial) 35 units SQ HS [facility] Last Admin: 02/19/20 21:32 Dose: 35 units Documented by: Melatonin (Melatonin) 5 mg PO HS PRN PRN Reason: INSOMNIA Methylprednisolone Sodium Succinate (Solu-Medrol -) 30 mg IVPUSH BID [facility] Last Admin: 02/19/20 21:33 Dose: 30 mg Documented by: Ondansetron HCl (Zofran Injection) 4 mg IVPUSH Q6H PRN PRN Reason: NAUSEA Zinc Sulfate (Orazinc -) 220 mg PO BID [facility] Last Admin: 02/19/20 21:33 Dose: 220 mg Documented by: - Objective Vital Signs: Vital Signs Temperature 98.3 F 02/20/20 02:00 Pulse Rate 71 02/20/20 02:00 Respiratory Rate 20 02/20/20 06:00 Blood Pressure 135/65 02/20/20 02:00 O2 Sat by Pulse Oximetry (%) 98 02/20/20 01:15 Constitutional: Yes: Calm, Obese Eyes: Yes: WNL HENT: Yes: WNL Neck: Yes: WNL Cardiovascular: Yes: Regular Rate and Rhythm, S1, S2 Respiratory: Yes: Diminished Gastrointestinal: Yes: Normal Bowel Sounds, Soft Extremities: Yes: WNL Edema: No Labs: CBC, BMP 02/19/20 06:15 02/19/20 06:15 INR, PTT INR 1.00 (0.83-1.09) 01/25/20 16:29 Laboratory Tests 02/20/20 02/20/20 06:01 06:01 D-Dimer 2036 H Ferritin 456.4 H LD Total 387 H C-Reactive Protein 1.0 H Problem List - Problems (1) Acute hypoxemic respiratory failure Code(s): J96.01 - ACUTE RESPIRATORY FAILURE WITH HYPOXIA (2) COVID-19 Code(s): U07.1 - COVID POSITIVE (3) HTN (hypertension) Code(s): I10 - ESSENTIAL (PRIMARY) HYPERTENSION (4) REYNALDO (obstructive sleep apnea) Code(s): G47.33 - OBSTRUCTIVE SLEEP APNEA (ADULT) (PEDIATRIC) (5) Obesity Code(s): E66.9 - OBESITY, UNSPECIFIED Assessment/Plan A/P Acute Hypoxic Respiratory Failure COVID Pneumonia ARDS HTN DM - s/p remdesivir course - s/p tocilizumab infusion - continue medrol - empiric anticoagulation - completed empiric antibiotics - received convalescent plasma transfusion - trend ferritin, LDH, CRP - titrate O2 to keep SpO2 >90% - BiPAP as needed DR MCKEON
[2020-02-20 07:58] LABS: BASO % 0.8 % (0-2.0); EOS % 0.4 % (0-4.5); HEMATOCRIT 36.7 % (35.4-49); HEMOGLOBIN 11.8 GM/dL (11.7-16.9); LYMPH % 17.8 % (8-40); MCH 24.4 pg (25.7-33.7); MCHC 32.2 g/dl (32.0-35.9); MEAN CELL VOLUME 75.9 fl (80-96); MEAN PLT VOLUME 9.3 fl (7.5-11.1); MONO % 8.1 % (3.8-10.2); NEUT % 72.9 % (42.8-82.8); PLATELET COUNT 257 K/MM3 (134-434); RBC 4.84 M/mm3 (4.00-5.60); RDW 16.1 % (11.9-15.9); WHITE BLOOD COUNT 10.3 K/mm3 (4.0-10.0)
[2020-02-20 08:15] LABS: BILIRUBIN,TOTAL 0.9 mg/dL (0.2-1); BLOOD UREA NITROGEN 19.3 mg/dL (7-18); CALCIUM 8.7 mg/dL (8.5-10.1); CREATININE 0.8 mg/dL (0.55-1.3); POTASSIUM 4.6 mmol/L (3.5-5.1); TOT PROT 6.3 g/dl (6.4-8.2)
[2020-02-20] MEDS: ALBUTEROL SO4 2.5/IPRATROPIUM 0.5 INH SOL 3 ML VIAL.NEB. NEB SCH ×3 (08:33→20:30)
[2020-02-20] MEDS: CHOLECALCIFEROL (VIT D3) 1,000 UNIT (25 MCG) TABLET PO SCH (08:59)
[2020-02-20] MEDS: ASCORBIC ACID 500 MG TABLET (FP) PO SCH ×2 (08:59→21:33)
[2020-02-20] MEDS: APIXABAN 5 MG TABLET PO SCH ×2 (08:59→21:34)
[2020-02-20] MEDS: methylPREDNISolone NA SUCC 40 MG/1 ML VIAL IVPUSH SCH ×2 (08:59→21:33)
[2020-02-20] MEDS: ASPIRIN 81 MG CHEWABLE TABLETS PO SCH (08:59)
[2020-02-20] MEDS: CLOTRIMAZOLE 1% CREAM 15 GM TUBE TP SCH ×2 (09:00→21:34)
[2020-02-20] MEDS: ZINC SULFATE 220 MG CAPSULE (FP) PO SCH ×2 (09:00→21:33)
--- NOTE | 2020-02-20 10:49 | PN ---
Progress Note (short form) - Note Progress Note: completed remdesivir 5 day course remains on NRB, feels about the same Vital Signs Period Temp Pulse Resp BP Sys/Miner Pulse Ox Last 24 Hr 97.7 F-98.8 F 71-104 20-22 110-135/65-83 93-98 cor-rrr lungs decreased bs at bases abd soft,nt ext no edema CBC, BMP 02/20/20 06:01 02/20/20 06:01 quant gold negative a/p covid 19 positive hemophilus parainfluenza +sputum culture-s/p 10 days of antibioitics obesity- suspected osas HTN hypoxemic respiratory failure- persists s/p convalescent plasma s/p tocilizumab remains on NRB taper oxygen as tolerated taper steroids per pulmonary Problem List - Problems (1) Acute hypoxemic respiratory failure Code(s): J96.01 - ACUTE RESPIRATORY FAILURE WITH HYPOXIA (2) COVID-19 Code(s): U07.1 - COVID POSITIVE (3) HTN (hypertension) Code(s): I10 - ESSENTIAL (PRIMARY) HYPERTENSION (4) Obesity Code(s): E66.9 - OBESITY, UNSPECIFIED (5) REYNALDO (obstructive sleep apnea) Code(s): G47.33 - OBSTRUCTIVE SLEEP APNEA (ADULT) (PEDIATRIC)
--- NOTE | 2020-02-20 12:58 | PN ---
Physical Exam: SUBJECTIVE: Patient seen and examined. worsening SOB this morning, satting 91% on NRB. pt c/o being tired of being in the hospital. OBJECTIVE: Vital Signs Period Temp Pulse Resp BP Sys/Miner Pulse Ox Last 24 Hr 97.7 F-98.8 F 71-104 20-22 110-135/65-83 93-98 GENERAL: The patient is awake, alert, and fully oriented, in mild distress. HEAD: Normal with no signs of trauma. EYES: PERRL, extraocular movements intact, sclera anicteric, conjunctiva clear. No ptosis. NECK: Trachea midline, full range of motion, supple. LUNGS: NO ISOLATION STETHOSCOPE IN THE ROOM. HEART: NO ISOLATION STETHOSCOPE IN THE ROOM. ABDOMEN: Soft, nontender, obese, no guarding, no rebound, no hepatosplenomegaly, no masses. EXTREMITIES: 2+ pulses, warm, well-perfused, no edema. NEUROLOGICAL: Cranial nerves II through XII grossly intact. Normal speech, gait not observed. PSYCH: Normal mood, normal affect. SKIN: Warm, dry, normal turgor, no rashes or lesions noted Laboratory Results - last 24 hr 02/19/20 02/19/20 02/20/20 16:50 21:08 06:01 WBC RBC Hgb Hct MCV MCH MCHC RDW Plt Count MPV Absolute Neuts (auto) Neutrophils % Lymphocytes % Monocytes % Eosinophils % Basophils % Nucleated RBC % D-Dimer Sodium 136 Potassium 4.6 Chloride 97 L Carbon Dioxide 32 Anion Gap 8 BUN 19.3 H Creatinine 0.8 Est GFR (CKD-EPI)AfAm 134.14 Est GFR (CKD-EPI)NonAf 115.74 POC Glucometer 330 226 Random Glucose 261 H Calcium 8.7 Ferritin 456.4 H Total Bilirubin 0.9 AST 11 L ALT 36 Alkaline Phosphatase 93 LD Total 387 H C-Reactive Protein 1.0 H Total Protein 6.3 L Albumin 3.0 L 02/20/20 02/20/20 06:01 06:01 WBC 10.3 H RBC 4.84 Hgb 11.8 Hct 36.7 MCV 75.9 L MCH 24.4 L MCHC 32.2 RDW 16.1 H Plt Count 257 MPV 9.3 Absolute Neuts (auto) 7.5 Neutrophils % 72.9 Lymphocytes % 17.8 Monocytes % 8.1 Eosinophils % 0.4 Basophils % 0.8 Nucleated RBC % 0 D-Dimer 2036 H Sodium Potassium Chloride Carbon Dioxide Anion Gap BUN Creatinine Est GFR (CKD-EPI)AfAm Est GFR (CKD-EPI)NonAf POC Glucometer Random Glucose Calcium Ferritin Total Bilirubin AST ALT Alkaline Phosphatase LD Total C-Reactive Protein Total Protein Albumin Active Medications Generic Name Dose Route Start Last Admin Trade Name Freq PRN Reason Stop Dose Admin Acetaminophen 650 mg 02/14/20 19:42 02/16/20 08:18 Tylenol - PO 650 mg Q6H PRN Administration FEVER Albuterol Sulfate 1 puff 02/14/20 19:42 Ventolin Hfa Inhaler - IH Q4H PRN SHORT OF BREATH/WHEEZING Albuterol/Ipratropium 1 amp 02/17/20 20:00 02/20/20 08:33 Duoneb - NEB Not Given RTID [facility] Apixaban 5 mg 02/14/20 22:00 02/20/20 08:59 Eliquis - PO 5 mg BID [facility] Administration Ascorbic Acid 500 mg 02/14/20 22:00 02/20/20 08:59 Vitamin C - PO 500 mg BID [facility] Administration Aspirin 81 mg 02/15/20 10:00 02/20/20 08:59 Asa - PO 81 mg DAILY [facility] Administration Cholecalciferol 2,000 unit 02/15/20 11:53 02/20/20 08:59 Vitamin D3 - PO 2,000 unit DAILY [facility] Administration Clotrimazole 1 applic 02/14/20 22:00 02/20/20 09:00 Lotrimin 1% Cream - TP 1 applic BID [facility] Administration Guaifenesin/Codeine Phosphate 10 ml 02/14/20 19:42 02/19/20 21:33 Robitussin Ac - PO 10 ml Q6H PRN Administration COUGH Insulin Aspart 1 vial 02/14/20 22:00 02/20/20 11:12 Novolog Vial Sliding Scale - SQ 4 units ACHS [facility] Administration Protocol Insulin Detemir 40 units 02/17/20 07:00 02/20/20 06:48 Levemir Vial SQ 40 unit ACBK [facility] Administration Insulin Detemir 35 units 02/16/20 22:00 02/19/20 21:32 Levemir Vial SQ 35 units HS [facility] Administration Melatonin 5 mg 05/19/20 19:42 Melatonin PO HS PRN INSOMNIA Methylprednisolone Sodium Succinate 30 mg 02/17/20 13:00 02/20/20 08:59 Solu-Medrol - IVPUSH 30 mg BID [facility] Administration Ondansetron HCl 4 mg 02/14/20 19:42 Zofran Injection IVPUSH Q6H PRN NAUSEA Zinc Sulfate 220 mg 02/14/20 22:00 02/20/20 09:00 Orazinc - PO 220 mg BID [facility] Administration ASSESSMENT/PLAN: 34 y/o male with HTN (not on meds) and newly diagnosed DM on admission, who presents with 3-4 days of increasing dyspnea and diarrhea. Two days ago he began having chest pain with coughing. 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 #COVID 19 Pneumonia - pt has worsening SOB and cough spells. continues to desat on ambulation. currently satting 93% on NRB - adjust between NRB and BiPAP (night) as needed to keep O2 >90, taper oxygen as tolerated - s/p abx X 10 days - solumedrol 30 BID. will discuss taper with Pulm - inflammatory markers decreased. trend daily - vitamin C/vitamin D,zinc - full AC 5 BID eliquis - ID following- s/p convalescent plasma 01/25, s/p tocolizumab 01/29, remdisivir dose /5 given - prognosis guarded not much more to do other than watchful waiting at this time #Newly diagnosed DM - currently 261 - A1C 10.5 -BGMs, c/w Levemir 40 in AM and 35 HS -goal BG 140-180, on steroids likely worsening it DVT Ppx Eliquis 5mg BID [facility] PO fluids monitor labs diabetic diet dispo: Tele monitoring Visit type - Emergency Visit Emergency Visit: Yes ED Registration Date: 01/25/20 Care time: The patient presented to the Emergency Department on the above date and was hospitalized for further evaluation of their emergent condition. - New Patient This patient is new to me today: No - Critical Care Critical Care patient: No ATTENDING PHYSICIAN STATEMENT I saw and evaluated the patient. I reviewed the resident's note and discussed the case with the resident. I agree with the resident's findings and plan as documented. SUBJECTIVE: OBJECTIVE: ASSESSMENT AND PLAN:
--- NOTE | 2020-02-20 16:03 | PN ---
Teaching Attending Note Name of Resident: Nichole Hassan ATTENDING PHYSICIAN STATEMENT I saw and evaluated the patient. I reviewed the resident's note and discussed the case with the resident. I agree with the resident's findings and plan as documented. SUBJECTIVE: No new changes, continues on NR, OBJECTIVE: Vital Signs Temperature 97.8 F 02/20/20 14:00 Pulse Rate 85 02/20/20 14:00 Respiratory Rate 20 02/20/20 14:00 Blood Pressure 143/68 02/20/20 14:00 O2 Sat by Pulse Oximetry (%) 92 L 02/20/20 09:00 PE: per resident's CBCD WBC 10.3 K/mm3 (4.0-10.0) H 02/20/20 06:01 RBC 4.84 M/mm3 (4.00-5.60) 02/20/20 06:01 Hgb 11.8 GM/dL (11.7-16.9) 02/20/20 06:01 Hct 36.7 % (35.4-49) 02/20/20 06:01 MCV 75.9 fl (80-96) L 02/20/20 06:01 MCHC 32.2 g/dl (32.0-35.9) 02/20/20 06:01 RDW 16.1 % (11.9-15.9) H 02/20/20 06:01 Plt Count 257 K/MM3 (134-434) 02/20/20 06:01 MPV 9.3 fl (7.5-11.1) 02/20/20 06:01 CMP Sodium 136 mmol/L (136-145) 02/20/20 06:01 Potassium 4.6 mmol/L (3.5-5.1) 02/20/20 06:01 Chloride 97 mmol/L (98-107) L 02/20/20 06:01 Carbon Dioxide 32 mmol/L (21-32) 02/20/20 06:01 Anion Gap 8 MMOL/L (8-16) 02/20/20 06:01 BUN 19.3 mg/dL (7-18) H 02/20/20 06:01 Creatinine 0.8 mg/dL (0.55-1.3) 02/20/20 06:01 Random Glucose 261 mg/dL (74-106) H 02/20/20 06:01 Calcium 8.7 mg/dL (8.5-10.1) 02/20/20 06:01 Total Bilirubin 0.9 mg/dL (0.2-1) 02/20/20 06:01 AST 11 U/L (15-37) L 02/20/20 06:01 ALT 36 U/L (13-61) 02/20/20 06:01 Alkaline Phosphatase 93 U/L (45-117) 02/20/20 06:01 Total Protein 6.3 g/dl (6.4-8.2) L 02/20/20 06:01 Albumin 3.0 g/dl (3.4-5.0) L 02/20/20 06:01 CARDIAC ENZYMES Creatine Kinase 309 U/L (26-308) H 01/31/20 06:25 Troponin I < 0.02 ng/ml (0.00-0.05) 01/31/20 06:25 Current Medications Generic Name Dose Route Start Last Admin Trade Name Freq PRN Reason Stop Dose Admin Acetaminophen 650 mg 02/14/20 19:42 02/16/20 08:18 Tylenol - PO 650 mg Q6H PRN Administration FEVER Albuterol Sulfate 1 puff 02/14/20 19:42 Ventolin Hfa Inhaler - IH Q4H PRN SHORT OF BREATH/WHEEZING Albuterol/Ipratropium 1 amp 02/17/20 20:00 02/20/20 08:33 Duoneb - NEB Not Given RTID [facility] Apixaban 5 mg 02/14/20 22:00 02/20/20 08:59 Eliquis - PO 5 mg BID [facility] Administration Ascorbic Acid 500 mg 02/14/20 22:00 02/20/20 08:59 Vitamin C - PO 500 mg BID [facility] Administration Aspirin 81 mg 02/15/20 10:00 02/20/20 08:59 Asa - PO 81 mg DAILY [facility] Administration Cholecalciferol 2,000 unit 02/15/20 11:53 02/20/20 08:59 Vitamin D3 - PO 2,000 unit DAILY [facility] Administration Clotrimazole 1 applic 02/14/20 22:00 02/20/20 09:00 Lotrimin 1% Cream - TP 1 applic BID [facility] Administration Guaifenesin/Codeine Phosphate 10 ml 02/14/20 19:42 02/19/20 21:33 Robitussin Ac - PO 10 ml Q6H PRN Administration COUGH Insulin Aspart 1 vial 02/14/20 22:00 02/20/20 11:12 Novolog Vial Sliding Scale - SQ 4 units ACHS [facility] Administration Protocol Insulin Detemir 40 units 02/17/20 07:00 02/20/20 06:48 Levemir Vial SQ 40 unit ACBK [facility] Administration Insulin Detemir 35 units 02/16/20 22:00 02/19/20 21:32 Levemir Vial SQ 35 units HS [facility] Administration Melatonin 5 mg 02/14/20 19:42 Melatonin PO HS PRN INSOMNIA Methylprednisolone Sodium Succinate 30 mg 02/17/20 13:00 02/20/20 08:59 Solu-Medrol - IVPUSH 30 mg BID [facility] Administration Ondansetron HCl 4 mg 02/14/20 19:42 Zofran Injection IVPUSH Q6H PRN NAUSEA Zinc Sulfate 220 mg 02/14/20 22:00 02/20/20 09:00 Orazinc - PO 220 mg BID [facility] Administration Microbiology 01/27/20 09:30 Blood - Peripheral Venous Blood Culture - Final NO GROWTH AFTER 5 DAYS INCUBATION 01/27/20 09:30 Blood - Peripheral Venous Blood Culture - Final NO GROWTH AFTER 5 DAYS INCUBATION 01/25/20 16:29 Blood - Peripheral Venous Blood Culture - Final NO GROWTH AFTER 5 DAYS INCUBATION 01/25/20 16:29 Blood - Peripheral Venous Blood Culture - Final NO GROWTH AFTER 5 DAYS INCUBATION 01/27/20 14:15 Sputum - Expectorated Gram Stain - Final 01/27/20 14:15 Sputum - Expectorated Sputum Culture - Final Haemophilus Parainfluenzae Ii 01/27/20 09:20 Urine - Urine Clean Catch Legionella Antigen - Final 01/27/20 09:20 Urine - Urine Clean Catch Streptococcus pneumoniae Antigen (M - Final TB test negative ASSESSMENT AND PLAN: This patient is a 34yom with PMhx of HTN (not on meds) and newly diagnosed T2DM on admission, who presents with 3-4 days of increasing dyspnea and diarrhea. 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 #COVID 19 Pneumonia: improving on medrol/vit c/d/z on Eliquis 5mg bid s/p tocolizumab on 01/29, s/p remdesivir completed 5 doses , s/p convalescent plasma 01/25, s/p abx X 10 days, improving.Trending down , will continue to follow the markers. # H. parainfluenzae on the sputum s/p treatment #T2DM with new dx, with A1c 10.5, SS with coverage DVT Ppx: Eliquis 5mg BID continue to monitor
[2020-02-21] MEDS: INSULIN SLIDING SCALE (NOVOLOG) 1 VIAL SQ SCH ×4 (06:30→22:15)
[2020-02-21] MEDS: INSULIN (LEVEMIR) 100 UNITS/ML UNITS SQ SCH ×2 (06:30→22:18)
--- NOTE | 2020-02-21 07:46 | PN ---
Progress Note, Physician History of Present Illness: pulmonary alert on 100% nrb,still dyspneic with min exertion,min cough - Current Medication List Current Medications: Active Medications Acetaminophen (Tylenol -) 650 mg PO Q6H PRN PRN Reason: FEVER Last Admin: 02/16/20 08:18 Dose: 650 mg Documented by: Albuterol Sulfate (Ventolin Hfa Inhaler -) 1 puff IH Q4H PRN PRN Reason: SHORT OF BREATH/WHEEZING Albuterol/Ipratropium (Duoneb -) 1 amp NEB RTID [facility] Last Admin: 02/20/20 20:30 Dose: Not Given Documented by: Apixaban (Eliquis -) 5 mg PO BID [facility] Last Admin: 02/20/20 21:34 Dose: 5 mg Documented by: Ascorbic Acid (Vitamin C -) 500 mg PO BID [facility] Last Admin: 02/20/20 21:33 Dose: 500 mg Documented by: Aspirin (Asa -) 81 mg PO DAILY [facility] Last Admin: 02/20/20 08:59 Dose: 81 mg Documented by: Cholecalciferol (Vitamin D3 -) 2,000 unit PO DAILY [facility] Last Admin: 02/20/20 08:59 Dose: 2,000 unit Documented by: Clotrimazole (Lotrimin 1% Cream -) 1 applic TP BID [facility] Last Admin: 02/20/20 21:34 Dose: 1 applic Documented by: Guaifenesin/Codeine Phosphate (Robitussin Ac -) 10 ml PO Q6H PRN PRN Reason: COUGH Last Admin: 02/19/20 21:33 Dose: 10 ml Documented by: Insulin Aspart (Novolog Vial Sliding Scale -) 1 vial SQ ACHS [facility]; Protocol Last Admin: 02/21/20 06:30 Dose: 6 units Documented by: Insulin Detemir (Levemir Vial) 40 units SQ ACBK [facility] Last Admin: 02/21/20 06:30 Dose: 40 unit Documented by: Insulin Detemir (Levemir Vial) 35 units SQ HS [facility] Last Admin: 02/20/20 21:33 Dose: 35 units Documented by: Melatonin (Melatonin) 5 mg PO HS PRN PRN Reason: INSOMNIA Methylprednisolone Sodium Succinate (Solu-Medrol -) 30 mg IVPUSH BID [facility] Last Admin: 02/20/20 21:33 Dose: 30 mg Documented by: Ondansetron HCl (Zofran Injection) 4 mg IVPUSH Q6H PRN PRN Reason: NAUSEA Zinc Sulfate (Orazinc -) 220 mg PO BID [facility] Last Admin: 02/20/20 21:33 Dose: 220 mg Documented by: - Objective Vital Signs: Vital Signs Temperature 98.0 F 02/21/20 06:00 Pulse Rate 75 02/21/20 06:00 Respiratory Rate 18 02/21/20 06:00 Blood Pressure 100/41 L 02/21/20 06:00 O2 Sat by Pulse Oximetry (%) 98 02/20/20 22:00 Constitutional: Yes: Calm, Obese Eyes: Yes: WNL HENT: Yes: Nasal Congestion Neck: Yes: WNL Cardiovascular: Yes: Regular Rate and Rhythm, S1, S2 Respiratory: Yes: Diminished Gastrointestinal: Yes: Normal Bowel Sounds, Soft Extremities: Yes: WNL Edema: No Labs: INR, PTT INR 1.00 (0.83-1.09) 01/25/20 16:29 Laboratory Tests 02/21/20 02/21/20 06:38 06:38 D-Dimer 1772 H Ferritin 426.5 H LD Total 368 H C-Reactive Protein 0.9 H Problem List - Problems (1) Acute hypoxemic respiratory failure Code(s): J96.01 - ACUTE RESPIRATORY FAILURE WITH HYPOXIA (2) COVID-19 Code(s): U07.1 - COVID POSITIVE (3) HTN (hypertension) Code(s): I10 - ESSENTIAL (PRIMARY) HYPERTENSION (4) REYNALDO (obstructive sleep apnea) Code(s): G47.33 - OBSTRUCTIVE SLEEP APNEA (ADULT) (PEDIATRIC) (5) Obesity Code(s): E66.9 - OBESITY, UNSPECIFIED Assessment/Plan A/P Acute Hypoxic Respiratory Failure COVID Pneumonia ARDS HTN DM - s/p remdesivir course - s/p tocilizumab infusion - continue medrol - empiric anticoagulation - completed empiric antibiotics - s/p convalescent plasma transfusion - trend ferritin, LDH, CRP - titrate O2 to keep SpO2 >90% - BiPAP as needed DR MCKEON
[2020-02-21 07:56] LABS: BASO % 0.6 % (0-2.0); HEMATOCRIT 36.5 % (35.4-49); HEMOGLOBIN 11.5 GM/dL (11.7-16.9); LYMPH % 17.1 % (8-40); MCH 24.1 pg (25.7-33.7); MCHC 31.6 g/dl (32.0-35.9); MEAN CELL VOLUME 76.2 fl (80-96); MEAN PLT VOLUME 9.4 fl (7.5-11.1); MONO % 9.4 % (3.8-10.2); NEUT % 71.9 % (42.8-82.8); PLATELET COUNT 241 K/MM3 (134-434); RBC 4.79 M/mm3 (4.00-5.60); RDW 16.8 % (11.9-15.9); WHITE BLOOD COUNT 10.8 K/mm3 (4.0-10.0)
[2020-02-21] MEDS: ALBUTEROL SO4 2.5/IPRATROPIUM 0.5 INH SOL 3 ML VIAL.NEB. NEB SCH ×3 (08:04→21:44)
[2020-02-21 08:30] LABS: ALBUMIN 2.9 g/dl (3.4-5.0); ALK PHOS 97 U/L (45-117); ANION GAP 4 MMOL/L (8-16); BILIRUBIN,TOTAL 0.8 mg/dL (0.2-1); BLOOD UREA NITROGEN 22.6 mg/dL (7-18); CALCIUM 8.7 mg/dL (8.5-10.1); CHLORIDE 98 mmol/L (98-107); CO2 35 mmol/L (21-32); CREATININE 0.9 mg/dL (0.55-1.3); GLUCOSE,RANDOM 293 mg/dL (74-106); LDH 368 U/L (87-246); MAGNESIUM 2.3 mg/dL (1.8-2.4); PHOSPHOROUS 3.9 mg/dL (2.5-4.9); POTASSIUM 4.5 mmol/L (3.5-5.1); SGOT/AST 9 U/L (15-37); SGPT/ALT 31 U/L (13-61); SODIUM 136 mmol/L (136-145); TOT PROT 6.2 g/dl (6.4-8.2)
[2020-02-21] MEDS: guaiFENesin/CODEINE 10 ML UNIT-DOSE CUPS PO PRN (09:14)
[2020-02-21] MEDS: APIXABAN 5 MG TABLET PO SCH ×2 (10:20→21:45)
[2020-02-21] MEDS: CHOLECALCIFEROL (VIT D3) 1,000 UNIT (25 MCG) TABLET PO SCH (10:20)
[2020-02-21] MEDS: ASCORBIC ACID 500 MG TABLET (FP) PO SCH ×2 (10:20→21:46)
[2020-02-21] MEDS: ASPIRIN 81 MG CHEWABLE TABLETS PO SCH (10:20)
[2020-02-21] MEDS: ZINC SULFATE 220 MG CAPSULE (FP) PO SCH ×2 (10:21→21:45)
[2020-02-21] MEDS: CLOTRIMAZOLE 1% CREAM 15 GM TUBE TP SCH ×2 (10:21→21:45)
[2020-02-21] MEDS: methylPREDNISolone NA SUCC 40 MG/1 ML VIAL IVPUSH SCH ×2 (10:21→22:10)
[2020-02-21] MEDS: FAMOTIDINE 20 MG/50 ML IVPB 20 MG/50 ML MG IVPB SCH (11:37)
[2020-02-21] MEDS ORDERED: ASPIRIN 81 MG CHEWABLE TABLETS PO ONE (11:45)
[2020-02-21] MEDS ORDERED: MAG HYDROX/AL HYDROX/SIMETH 30 ML UNIT-DOSE CUP PO ONE (11:45)
--- NOTE | 2020-02-21 13:59 | PN ---
Teaching Attending Note Name of Resident: Nichole Hassan ATTENDING PHYSICIAN STATEMENT I saw and evaluated the patient. I reviewed the resident's note and discussed the case with the resident. I agree with the resident's findings and plan as documented. SUBJECTIVE: seen earlier in am , No fever or chills. he felt SOB , but did not have cp . occasional cough + . no diarrhea or abd [ain. JUDGE was called on him late morning, because of CP. L sided, pressure like, 10/10 which improved to 8 after 5 min while team was in room. SOB did not get worse with CP . he was in bed when that happened OBJECTIVE: NAD during first encounter, but was in mil distress during rapid response. CV; :RRR using the available disposable stethoscope Lungs : clear, no use of accessory muscles Ext : No edema on legs ASSESSMENT AND PLAN: 34 y/o man with h/o DM , HTN, and recent COVID diagnosis who presented with worsening SOB and was found to have acute resp failure 1- Acute hypoxic resp failure . due to COVID PNA . s/o taciliizumab, Remdisivir, , plasma, and Abx 2- Acute onset CP 3- DM with uncontrolled blood sugar 4- H/o HTN Plan: - Resp status is stable but still requiring NRB . did not use BIPAP at night last night . - cont eliquis BID - day 23 of solu-medrol, and day 5 on current dose 30. will decrease to 20 BID - CP is not clear in etiology. ? muscular, but ACS needs to be r/o given hypercoagulability with COVID. also, pericarditis, myocarditis are i n Ddx. EKG x 2 10 min apart during JUDGE, showed no ST changes. trop neg x 1. Cxray with no pneumothorax. - now CP is 2/10 , will get another EKG and repeat trop in 6 hours. - will ask card to evaluate. - ASA during rapid - increase levemir evening dose monitor closely
--- NOTE | 2020-02-21 14:43 | CON.CARD ---
Consult Consult Specialty:: cardiology Reason for Consultation:: chest pain; COVID + - History of Present Illness Chief Complaint: Pt A&Ox3; dyspneic walking even the short distance to the bathroom. No further chest pain. History of Present Illness: 34yo black man with morbid obesity, DM, hyperlipidemia, ?sleep apnea, recent COVID positive test, presents to the ED with shortness of breath and extreme fatigue. Recently on azithromycin course without relief. Saturating at 98% on room air, placed on 2L nasal cannula upon arrival with symptomatic relief. Patient has been progressively short of breath since diagnosis. Called because pt c/o strong, sharp left breast pain that began today at rest, lasted about an hour. Pt says he had had a similar pain, though less severe and of shorter duration while in the ICU. Pt denies personal or family hx of heart disease; his father has DM. Pt never smoked; does not drink to excess. 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 - History Source History Provided By: Patient, Medical Record Limitations to Obtaining History: No Limitations - Past Medical History Cardio/Vascular: Yes: Hyperlipdemia, Other (morbid obesity). No: HTN Endocrine: Yes: Diabetes Mellitus - Alcohol/Substance Use Hx Alcohol Use: No - Smoking History Smoking history: Never smoked Have you smoked in the past 12 months: No Home Medications - Allergies Allergies/Adverse Reactions: Allergies Allergy/AdvReac Type Severity Reaction Status Date / Time No Known Allergies Allergy Verified 01/25/20 16:40 Family Medical History Family History: Denies Review of Systems - Review of Systems Constitutional: reports: Weakness. denies: Loss of Appetite Eyes: reports: No Symptoms HENT: reports: No Symptoms Neck: reports: No Symptoms Cardiovascular: reports: Chest Pain Respiratory: reports: Exercise Intolerance, Snoring, SOB on Exertion Musculoskeletal: reports: Muscle Weakness Neurological: reports: Weakness Psychiatric: reports: Anxiety - Risk Factors Known Risk Factors: Yes: Diabetes Mellitus, Gender, Hypercholesterolemia, Physical Inactivity, Race, Other (morbid obesity) Vital Signs: Vital Signs Temperature 98.0 F 02/21/20 06:00 Pulse Rate 87 02/21/20 11:05 Respiratory Rate 18 02/21/20 06:00 Blood Pressure 100/41 L 02/21/20 06:00 O2 Sat by Pulse Oximetry (%) 90 L 02/21/20 11:05 Constitutional: Yes: Anxious, Obese Eyes: Yes: WNL HENT: Yes: WNL Neck: Yes: WNL Respiratory: Yes: Diminished, On Venti-Mask Gastrointestinal: Yes: Soft, Abdomen, Obese Renal/: No: Anuria Heart Sounds: Yes: S1, S2 Musculoskeletal: Yes: Joint Stiffness, Muscle Weakness Extremities: Yes: WNL Edema: No - Other Data Labs, Other Data: CBC, BMP 02/21/20 06:38 02/21/20 06:38 INR, PTT INR 1.00 (0.83-1.09) 01/25/20 16:29 Troponin, BNP 02/21/20 02/21/20 06:38 12:16 Troponin I < 0.02 < 0.02 Troponin, BNP 02/21/20 02/21/20 06:38 12:16 Troponin I < 0.02 < 0.02 Abnormal Lab Results 02/24/20 02/24/20 02/24/20 06:39 06:39 06:39 Hgb 11.4 L MCV 75.4 L MCH 24.1 L RDW 17.0 H Monocytes % 10.3 H Eosinophils % 9.6 H D D-Dimer 1183 H Carbon Dioxide 33 H Anion Gap 5 L BUN 18.1 H Random Glucose 140 H Ferritin 546.6 H AST 10 L LD Total 367 H C-Reactive Protein 1.9 H Total Protein 6.1 L Albumin 2.8 L Imaging - Results Chest X-ray: Image Reviewed EKG: Image Reviewed Assessment/Plan COVID pneumonia ARDS HTN DM Obestiy Plan: TNI < 0.02 x 2 EKG taken today:NSR; no acute changes F/u lipid profile, and keep LDL cholesterol < 70 mg;dL with statin, diet change. BUN/Cr, electrolytes, daily weight, Is and Os. ECHO for LVEF, wall motion, valve status.
--- NOTE | 2020-02-21 14:53 | PN ---
Physical Exam: SUBJECTIVE: Patient seen and examined. in respiratory distress requiring Rapid today. please follow rapid note OBJECTIVE: Vital Signs Period Temp Pulse Resp BP Sys/Miner Pulse Ox Last 24 Hr 97.7 F-98.1 F 75-93 18-20 92-129/41-57 90-100 GENERAL: The patient is awake, alert, and fully oriented, in mild distress. HEAD: Normal with no signs of trauma. EYES: PERRL, extraocular movements intact, sclera anicteric, conjunctiva clear. No ptosis. NECK: Trachea midline, full range of motion, supple. LUNGS: NO ISOLATION STETHOSCOPE IN THE ROOM. HEART: NO ISOLATION STETHOSCOPE IN THE ROOM. ABDOMEN: Soft, nontender, obese, no guarding, no rebound, no hepatosplenomegaly, no masses. EXTREMITIES: 2+ pulses, warm, well-perfused, no edema. NEUROLOGICAL: Cranial nerves II through XII grossly intact. Normal speech, gait not observed. PSYCH: Normal mood, normal affect. SKIN: Warm, dry, normal turgor, no rashes or lesions noted Laboratory Results - last 24 hr 02/21/20 02/21/20 02/21/20 05:41 06:38 06:38 WBC 10.8 H RBC 4.79 Hgb 11.5 L Hct 36.5 MCV 76.2 L MCH 24.1 L MCHC 31.6 L RDW 16.8 H Plt Count 241 MPV 9.4 Absolute Neuts (auto) 7.8 Neutrophils % 71.9 Lymphocytes % 17.1 Monocytes % 9.4 Eosinophils % 1.0 D Basophils % 0.6 Nucleated RBC % 0 D-Dimer Sodium 136 Potassium 4.5 Chloride 98 Carbon Dioxide 35 H Anion Gap 4 L BUN 22.6 H Creatinine 0.9 Est GFR (CKD-EPI)AfAm 127.80 Est GFR (CKD-EPI)NonAf 110.27 POC Glucometer 294 Random Glucose 293 H Calcium 8.7 Phosphorus 3.9 Magnesium 2.3 Ferritin 426.5 H Total Bilirubin 0.8 AST 9 L ALT 31 Alkaline Phosphatase 97 LD Total 368 H Creatine Kinase 47 Troponin I < 0.02 C-Reactive Protein 0.9 H Total Protein 6.2 L Albumin 2.9 L 02/21/20 02/21/20 06:38 12:16 WBC RBC Hgb Hct MCV MCH MCHC RDW Plt Count MPV Absolute Neuts (auto) Neutrophils % Lymphocytes % Monocytes % Eosinophils % Basophils % Nucleated RBC % D-Dimer 1772 H Sodium Potassium Chloride Carbon Dioxide Anion Gap BUN Creatinine Est GFR (CKD-EPI)AfAm Est GFR (CKD-EPI)NonAf POC Glucometer Random Glucose Calcium Phosphorus Magnesium Ferritin Total Bilirubin AST ALT Alkaline Phosphatase LD Total Creatine Kinase 70 Troponin I < 0.02 C-Reactive Protein Total Protein Albumin Active Medications Generic Name Dose Route Start Last Admin Trade Name Freq PRN Reason Stop Dose Admin Acetaminophen 650 mg 02/14/20 19:42 02/16/20 08:18 Tylenol - PO 650 mg Q6H PRN Administration FEVER Albuterol Sulfate 1 puff 02/14/20 19:42 Ventolin Hfa Inhaler - IH Q4H PRN SHORT OF BREATH/WHEEZING Albuterol/Ipratropium 1 amp 02/17/20 20:00 02/21/20 08:04 Duoneb - NEB Not Given RTID SARAH Apixaban 5 mg 02/14/20 22:00 02/21/20 10:20 Eliquis - PO 5 mg BID SARAH Administration Ascorbic Acid 500 mg 02/14/20 22:00 02/21/20 10:20 Vitamin C - PO 500 mg BID SARAH Administration Aspirin 81 mg 02/15/20 10:00 02/21/20 10:20 Asa - PO 81 mg DAILY SARAH Administration Cholecalciferol 2,000 unit 02/15/20 11:53 02/21/20 10:20 Vitamin D3 - PO 2,000 unit DAILY SARAH Administration Clotrimazole 1 applic 02/14/20 22:00 02/21/20 10:21 Lotrimin 1% Cream - TP 1 applic BID SARAH Administration Guaifenesin/Codeine Phosphate 10 ml 02/14/20 19:42 02/21/20 09:14 Robitussin Ac - PO 10 ml Q6H PRN Administration COUGH Famotidine/Sodium Chloride 20 mg in 50 mls @ 100 mls/hr 02/21/20 11:45 02/21/20 11:37 Pepcid 20 Mg Premixed Ivpb - IVPB 100 mls/hr DAILY SARAH Administration Insulin Aspart 1 vial 02/14/20 22:00 02/21/20 12:05 Novolog Vial Sliding Scale - SQ 2 units ACHS SARAH Administration Protocol Insulin Detemir 40 units 02/17/20 07:00 02/21/20 06:30 Levemir Vial SQ 40 unit ACBK SARAH Administration Insulin Detemir 40 units 02/21/20 14:11 Levemir Vial SQ HS SARAH Melatonin 5 mg 02/14/20 19:42 Melatonin PO HS PRN INSOMNIA Methylprednisolone Sodium Succinate 20 mg 02/21/20 14:52 Solu-Medrol - IVPUSH BID SARAH Ondansetron HCl 4 mg 02/14/20 19:42 Zofran Injection IVPUSH Q6H PRN NAUSEA Zinc Sulfate 220 mg 02/14/20 22:00 02/21/20 10:21 Orazinc - PO 220 mg BID SARAH Administration ASSESSMENT/PLAN: 34 y/o male with HTN (not on meds) and newly diagnosed DM on admission, who presents with 3-4 days of increasing dyspnea and diarrhea. Two days ago he began having chest pain with coughing. 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 #COVID 19 Pneumonia - pt has worsening SOB and cough spells. continues to desat on ambulation. currently satting 90% on NRB - adjust between NRB and BiPAP (night) as needed to keep O2 >90, - however pt did not use o/n the BIPAP yesteday - s/p abx X 10 days - solumedrol 20 BID. - inflammatory markers decreased. trend daily - vitamin C/vitamin D,zinc - full AC 5 BID eliquis - ID following- s/p convalescent plasma 01/25, s/p tocolizumab /, remdisivir dose /5 given - prognosis guarded not much more to do other than watchful waiting at this time #Newly diagnosed DM - currently 294 - A1C 10.5 - BGMs, c/w Levemir 40 in AM and HS dose increased to 40 as BG remains uncontrolled - goal BG 140-180, on steroids likely worsening it #DVT Ppx Eliquis 5mg BID FEN PO fluids monitor labs diabetic diet dispo: Tele monitoring Visit type - Emergency Visit Emergency Visit: Yes ED Registration Date: 01/25/20 Care time: The patient presented to the Emergency Department on the above date and was hospitalized for further evaluation of their emergent condition. - New Patient This patient is new to me today: No - Critical Care Critical Care patient: No ATTENDING PHYSICIAN STATEMENT I saw and evaluated the patient. I reviewed the resident's note and discussed the case with the resident. I agree with the resident's findings and plan as documented. SUBJECTIVE: OBJECTIVE: ASSESSMENT AND PLAN:
--- NOTE | 2020-02-21 15:07 | RAPID ---
<Mo,Nichole - Last Filed: 02/22/20 13:49> Physical Examination Vital Signs: Vital Signs Temperature 98.0 F 02/21/20 06:00 Pulse Rate 87 02/21/20 11:05 Respiratory Rate 18 02/21/20 06:00 Blood Pressure 100/41 L 02/21/20 06:00 O2 Sat by Pulse Oximetry (%) 90 L 02/21/20 11:05 Labs: CBC, BMP 02/21/20 06:38 02/21/20 06:38 Rapid Response - Rapid Response Assessment: Rapid was called around 11:30 am by nurse as pt was experiencing 10/10 left si ded CP at rest. Pt denies any cardiac history PE: VSS 148/86 95 100% NRB General: mod distress Pulm: SOB, but satting 100% on NRB Heart: no ISOLATION STETHOSCOPE. CP non reproducible on palpation Abdomen: obese, non tender LE: no signs of Edema PLan: given RF for ACS ( obesity, DM, HTN, COVID) r/o ACS labs ordered however pt likely exacerbated resp status by not using BIPAP o/n vs pericarditis -cardiac profile ( neg x3) -ekg (NSR w/o ST changes), n oe/o Pericarditis -cardiology consult placed -CXR to r/o Pneumothorax - asa 324 once, GI cocktail - pain improved to 2/10 no need for pain control at this time - repeat EKG unchanged. pt improved wth aspirin and mylanta <Zachariah High - Last Filed: 05/09/20 21:04> Physical Examination Vital Signs: Labs: CBC, BMP 03/20/20 07:29 03/20/20 07:29 Critical Care Total Critical Care Time (in minutes): 30 Critical Care Statement: The care of this patient involved high complexity decision making to prevent further life threatening deterioration of the patient's condition and/or to evaluate & treat vital organ system(s) failure or risk of failure.
[2020-02-21 15:21] LABS: CHOLESTEROL 204 mg/dL (50-200); HDL CHOLESTEROL 62 mg/dL (40-60); LDL CHOLESTEROL (ONLY SJRH) 122 mg/dL (5-100); TRIGLYCERIDES 76 mg/dL (0-150)
[2020-02-21] MEDS ORDERED: MAG HYDROX/AL HYDROX/SIMETH -MYLANTA- ORAL SUSPENSION PO PRN (17:49)
[2020-02-21] MEDS ORDERED: PANTOPRAZOLE SODIUM 40 MG VIAL IVPUSH ONE (21:43)
[2020-02-21] MEDS ORDERED: PT OWN MED DRAWER 7, Y5N ONE (21:43)
[2020-02-21] MEDS ORDERED: MORPHINE SULFATE 2 MG/ML VIAL IVPUSH ONE (23:24)
[2020-02-22] MEDS: INSULIN (LEVEMIR) 100 UNITS/ML UNITS SQ SCH ×2 (06:06→21:20)
[2020-02-22] MEDS: INSULIN SLIDING SCALE (NOVOLOG) 1 VIAL SQ SCH ×4 (06:06→21:25)
[2020-02-22 07:29] LABS: BASO % 0.5 % (0-2.0); EOS % 1.8 % (0-4.5); HEMATOCRIT 37.7 % (35.4-49); HEMOGLOBIN 11.9 GM/dL (11.7-16.9); MCHC 31.5 g/dl (32.0-35.9); MEAN CELL VOLUME 76.2 fl (80-96); MEAN PLT VOLUME 9.3 fl (7.5-11.1); MONO % 8.9 % (3.8-10.2); NEUT % 70.8 % (42.8-82.8); PLATELET COUNT 235 K/MM3 (134-434); RBC 4.95 M/mm3 (4.00-5.60); RDW 16.8 % (11.9-15.9)
[2020-02-22 07:51] LABS: ALBUMIN 3.1 g/dl (3.4-5.0); BILIRUBIN,TOTAL 0.7 mg/dL (0.2-1); BLOOD UREA NITROGEN 27.6 mg/dL (7-18); CALCIUM 8.9 mg/dL (8.5-10.1); CREATININE 0.9 mg/dL (0.55-1.3); MAGNESIUM 2.2 mg/dL (1.8-2.4); POTASSIUM 4.3 mmol/L (3.5-5.1); TOT PROT 6.6 g/dl (6.4-8.2)
--- NOTE | 2020-02-22 07:55 | PN ---
Progress Note, Physician History of Present Illness: pulmonary awake,remains dyspneic on 100%nrb,chest pain - Current Medication List Current Medications: Active Medications Acetaminophen (Tylenol -) 650 mg PO Q6H PRN PRN Reason: FEVER Last Admin: 02/16/20 08:18 Dose: 650 mg Documented by: Al Hydroxide/Mg Hydroxide (Mylanta Suspension -) 30 ml PO Q6HPO PRN PRN Reason: DYSPEPSIA Last Admin: 02/21/20 21:46 Dose: 30 ml Documented by: Albuterol Sulfate (Ventolin Hfa Inhaler -) 1 puff IH Q4H PRN PRN Reason: SHORT OF BREATH/WHEEZING Albuterol/Ipratropium (Duoneb -) 1 amp NEB RTID [facility] Last Admin: 02/21/20 21:44 Dose: Not Given Documented by: Apixaban (Eliquis -) 5 mg PO BID [facility] Last Admin: 02/21/20 21:45 Dose: 5 mg Documented by: Ascorbic Acid (Vitamin C -) 500 mg PO BID [facility] Last Admin: 02/21/20 21:46 Dose: 500 mg Documented by: Aspirin (Asa -) 81 mg PO DAILY [facility] Last Admin: 02/21/20 10:20 Dose: 81 mg Documented by: Cholecalciferol (Vitamin D3 -) 2,000 unit PO DAILY [facility] Last Admin: 02/21/20 10:20 Dose: 2,000 unit Documented by: Clotrimazole (Lotrimin 1% Cream -) 1 applic TP BID [facility] Last Admin: 02/21/20 21:45 Dose: 1 applic Documented by: Guaifenesin/Codeine Phosphate (Robitussin Ac -) 10 ml PO Q6H PRN PRN Reason: COUGH Last Admin: 02/21/20 09:14 Dose: 10 ml Documented by: Famotidine/Sodium Chloride (Pepcid 20 Mg Premixed Ivpb -) 20 mg in 50 mls @ 100 mls/hr IVPB DAILY [facility] Last Admin: 02/21/20 11:37 Dose: 100 mls/hr Documented by: Insulin Aspart (Novolog Vial Sliding Scale -) 1 vial SQ ACHS [facility]; Protocol Last Admin: 02/22/20 06:06 Dose: 6 units Documented by: Insulin Detemir (Levemir Vial) 40 units SQ ACBK [facility] Last Admin: 02/22/20 06:06 Dose: 40 unit Documented by: Insulin Detemir (Levemir Vial) 40 units SQ HS [facility] Last Admin: 02/21/20 22:18 Dose: 40 units Documented by: Melatonin (Melatonin) 5 mg PO HS PRN PRN Reason: INSOMNIA Methylprednisolone Sodium Succinate (Solu-Medrol -) 20 mg IVPUSH BID [facility] Last Admin: 02/21/20 22:10 Dose: 20 mg Documented by: Ondansetron HCl (Zofran Injection) 4 mg IVPUSH Q6H PRN PRN Reason: NAUSEA Zinc Sulfate (Orazinc -) 220 mg PO BID [facility] Last Admin: 02/21/20 21:45 Dose: 220 mg Documented by: - Objective Vital Signs: Vital Signs Temperature 98.0 F 02/22/20 06:00 Pulse Rate 78 02/22/20 06:00 Respiratory Rate 18 02/22/20 06:00 Blood Pressure 107/56 L 02/22/20 06:00 O2 Sat by Pulse Oximetry (%) 100 02/22/20 05:55 Constitutional: Yes: Calm, Mild Distress, Obese Eyes: Yes: WNL HENT: Yes: WNL Neck: Yes: WNL Cardiovascular: Yes: Regular Rate and Rhythm, S1, S2 Respiratory: Yes: Diminished Gastrointestinal: Yes: Normal Bowel Sounds, Soft Extremities: Yes: WNL Edema: No Labs: CBC, BMP 02/22/20 05:39 INR, PTT INR 1.00 (0.83-1.09) 01/25/20 16:29 Problem List - Problems (1) Acute hypoxemic respiratory failure Code(s): J96.01 - ACUTE RESPIRATORY FAILURE WITH HYPOXIA (2) COVID-19 Code(s): U07.1 - COVID POSITIVE (3) HTN (hypertension) Code(s): I10 - ESSENTIAL (PRIMARY) HYPERTENSION (4) REYNALDO (obstructive sleep apnea) Code(s): G47.33 - OBSTRUCTIVE SLEEP APNEA (ADULT) (PEDIATRIC) (5) Obesity Code(s): E66.9 - OBESITY, UNSPECIFIED Assessment/Plan A/P Acute Hypoxic Respiratory Failure COVID Pneumonia ARDS HTN DM - s/p remdesivir course - s/p tocilizumab infusion - taper medrol - empiric anticoagulation - completed empiric antibiotics - s/p convalescent plasma transfusion - trend ferritin, LDH, CRP - titrate O2 to keep SpO2 >90% - BiPAP as needed DR MCKEON
--- NOTE | 2020-02-22 08:05 | PN ---
Progress Note, Physician History of Present Illness: 34yo male with recent COVID positive test presents to the ED with shortness of breath and extreme fatigue. Recently on azithromycin course without relief. Saturating at 98% on room air, placed on 2L nasal cannula upon arrival with symptomatic relief. Patient has been progressively short of breath since diagnosis. - Current Medication List Current Medications: Active Medications Acetaminophen (Tylenol -) 650 mg PO Q6H PRN PRN Reason: FEVER Last Admin: 02/16/20 08:18 Dose: 650 mg Documented by: Al Hydroxide/Mg Hydroxide (Mylanta Suspension -) 30 ml PO Q6HPO PRN PRN Reason: DYSPEPSIA Last Admin: 02/21/20 21:46 Dose: 30 ml Documented by: Albuterol Sulfate (Ventolin Hfa Inhaler -) 1 puff IH Q4H PRN PRN Reason: SHORT OF BREATH/WHEEZING Albuterol/Ipratropium (Duoneb -) 1 amp NEB RTID [facility] Last Admin: 02/21/20 21:44 Dose: Not Given Documented by: Apixaban (Eliquis -) 5 mg PO BID [facility] Last Admin: 02/21/20 21:45 Dose: 5 mg Documented by: Ascorbic Acid (Vitamin C -) 500 mg PO BID [facility] Last Admin: 02/21/20 21:46 Dose: 500 mg Documented by: Aspirin (Asa -) 81 mg PO DAILY [facility] Last Admin: 02/21/20 10:20 Dose: 81 mg Documented by: Cholecalciferol (Vitamin D3 -) 2,000 unit PO DAILY [facility] Last Admin: 02/21/20 10:20 Dose: 2,000 unit Documented by: Clotrimazole (Lotrimin 1% Cream -) 1 applic TP BID [facility] Last Admin: 02/21/20 21:45 Dose: 1 applic Documented by: Guaifenesin/Codeine Phosphate (Robitussin Ac -) 10 ml PO Q6H PRN PRN Reason: COUGH Last Admin: 02/21/20 09:14 Dose: 10 ml Documented by: Famotidine/Sodium Chloride (Pepcid 20 Mg Premixed Ivpb -) 20 mg in 50 mls @ 100 mls/hr IVPB DAILY [facility] Last Admin: 02/21/20 11:37 Dose: 100 mls/hr Documented by: Insulin Aspart (Novolog Vial Sliding Scale -) 1 vial SQ [facility]; Protocol Last Admin: 02/22/20 06:06 Dose: 6 units Documented by: Insulin Detemir (Levemir Vial) 40 units SQ ACBK [facility] Last Admin: 02/22/20 06:06 Dose: 40 unit Documented by: Insulin Detemir (Levemir Vial) 40 units SQ HS [facility] Last Admin: 02/21/20 22:18 Dose: 40 units Documented by: Melatonin (Melatonin) 5 mg PO HS PRN PRN Reason: INSOMNIA Methylprednisolone Sodium Succinate (Solu-Medrol -) 20 mg IVPUSH BID [facility] Last Admin: 02/21/20 22:10 Dose: 20 mg Documented by: Ondansetron HCl (Zofran Injection) 4 mg IVPUSH Q6H PRN PRN Reason: NAUSEA Zinc Sulfate (Orazinc -) 220 mg PO BID [facility] Last Admin: 02/21/20 21:45 Dose: 220 mg Documented by: - Objective Vital Signs: Vital Signs Temperature 98.0 F 02/22/20 06:00 Pulse Rate 78 02/22/20 06:00 Respiratory Rate 18 02/22/20 06:00 Blood Pressure 107/56 L 02/22/20 06:00 O2 Sat by Pulse Oximetry (%) 100 02/22/20 05:55 Eyes: Yes: WNL, Conjunctiva Clear, EOM Intact HENT: Yes: WNL, Atraumatic, Normocephalic Neck: Yes: WNL, Supple, Trachea Midline Cardiovascular: Yes: WNL, Regular Rate and Rhythm Respiratory: Yes: Diminished Gastrointestinal: Yes: WNL, Normal Bowel Sounds Genitourinary: Yes: WNL Musculoskeletal: Yes: WNL Extremities: Yes: WNL Edema: No Integumentary: Yes: WNL Neurological: Yes: WNL, Alert, Oriented ...Motor Strength: WNL Psychiatric: Yes: WNL Labs: CBC, BMP 02/22/20 05:39 INR, PTT INR 1.00 (0.83-1.09) 01/25/20 16:29 Problem List - Problems (1) Acute hypoxemic respiratory failure Code(s): J96.01 - ACUTE RESPIRATORY FAILURE WITH HYPOXIA (2) COVID-19 Code(s): U07.1 - COVID POSITIVE (3) HTN (hypertension) Code(s): I10 - ESSENTIAL (PRIMARY) HYPERTENSION (4) REYNALDO (obstructive sleep apnea) Code(s): G47.33 - OBSTRUCTIVE SLEEP APNEA (ADULT) (PEDIATRIC) (5) Obesity Code(s): E66.9 - OBESITY, UNSPECIFIED (6) Bronchitis Code(s): J40 - BRONCHITIS, NOT SPECIFIED ACUTE OR CHRONIC (7) Cough Code(s): R05 - COUGH Assessment/Plan 34 y/o man with h/o DM , HTN, and recent COVID diagnosis who presented with worsening SOB and was found to have acute resp failure 1- Acute hypoxic resp failure . due to COVID PNA . s/o taciliizumab, Remdisivir, , plasma, and Abx 2- Acute onset CP 3- DM with uncontrolled blood sugar 4- H/o HTN PLan Cont AC f/u EKG ECHO when stable
[2020-02-22] MEDS: ALBUTEROL SO4 2.5/IPRATROPIUM 0.5 INH SOL 3 ML VIAL.NEB. NEB SCH ×2 (09:05→15:25)
[2020-02-22] MEDS: ASCORBIC ACID 500 MG TABLET (FP) PO SCH ×2 (10:52→21:17)
[2020-02-22] MEDS: CHOLECALCIFEROL (VIT D3) 1,000 UNIT (25 MCG) TABLET PO SCH (10:52)
[2020-02-22] MEDS: ASPIRIN 81 MG CHEWABLE TABLETS PO SCH (10:52)
[2020-02-22] MEDS: APIXABAN 5 MG TABLET PO SCH ×2 (10:53→21:17)
[2020-02-22] MEDS: CLOTRIMAZOLE 1% CREAM 15 GM TUBE TP SCH ×2 (11:05→21:19)
[2020-02-22] MEDS: ZINC SULFATE 220 MG CAPSULE (FP) PO SCH ×2 (11:20→21:17)
--- NOTE | 2020-02-22 11:22 | EKG ---
Test Reason : Blood Pressure : / mmHG Vent. Rate : 074 BPM Atrial Rate : 074 BPM P-R Int : 156 ms QRS Dur : 102 ms QT Int : 358 ms P-R-T Axes : 015 -13 007 degrees QTc Int : 397 ms POOR DATA QUALITY, INTERPRETATION MAY BE ADVERSELY AFFECTED NORMAL SINUS RHYTHM MINIMAL VOLTAGE CRITERIA FOR LVH, MAY BE NORMAL VARIANT NONSPECIFIC ST ABNORMALITY ABNORMAL ECG Confirmed by MD JORDON, CAITY ([id number]) on 02/22/2020 11:22:30 AM Referred By: Confirmed By:CAITY RUVALCABA MD
--- NOTE | 2020-02-22 11:22 | EKG ---
Test Reason : Blood Pressure : / mmHG Vent. Rate : 072 BPM Atrial Rate : 072 BPM P-R Int : 142 ms QRS Dur : 112 ms QT Int : 372 ms P-R-T Axes : -02 -13 000 degrees QTc Int : 407 ms NORMAL SINUS RHYTHM NORMAL ECG WHEN COMPARED WITH ECG OF 21-FEB-2020 14:32, NO SIGNIFICANT CHANGE WAS FOUND Confirmed by MD RUVALCABA MOYSES ([id number]) on 02/22/2020 11:21:17 AM Referred By: Confirmed By:CAITY RUVALCABA MD
[2020-02-22] MEDS: FAMOTIDINE 20 MG/50 ML IVPB 20 MG/50 ML MG IVPB SCH (12:45)
[2020-02-22] MEDS: methylPREDNISolone NA SUCC 40 MG/1 ML VIAL IVPUSH SCH ×2 (12:50→21:17)
[2020-02-22] MEDS: guaiFENesin/CODEINE 10 ML UNIT-DOSE CUPS PO PRN (13:01)
--- NOTE | 2020-02-22 13:51 | PN ---
Physical Exam: SUBJECTIVE: Patient seen and examined. similar CP overnight with normal cardiac work up again. Sspent night on NRB again, pain improved with xcedrin ( patient own) and 1 dose of morphine. pt c/o cough but refusing cough suppression as he feels like it gives him cough spells in the am OBJECTIVE: Vital Signs Period Temp Pulse Resp BP Sys/Miner Pulse Ox Last 24 Hr 97.3 F-99.0 F 78-137 18-26 107-156/56-91 10-100 GENERAL: The patient is awake, alert, and fully oriented, in mild distress. HEAD: Normal with no signs of trauma. EYES: PERRL, extraocular movements intact, sclera anicteric, conjunctiva clear. No ptosis. NECK: Trachea midline, full range of motion, supple. LUNGS: NO ISOLATION STETHOSCOPE IN THE ROOM. HEART: NO ISOLATION STETHOSCOPE IN THE ROOM. ABDOMEN: Soft, nontender, obese, no guarding, no rebound, no hepatosplenomegaly, no masses. EXTREMITIES: 2+ pulses, warm, well-perfused, no edema. NEUROLOGICAL: Cranial nerves II through XII grossly intact. Normal speech, gait not observed. PSYCH: Normal mood, normal affect. SKIN: Warm, dry, normal turgor, no rashes or lesions noted Laboratory Results - last 24 hr 02/21/20 02/21/20 02/22/20 06:38 21:45 05:39 WBC RBC Hgb Hct MCV MCH MCHC RDW Plt Count MPV Absolute Neuts (auto) Neutrophils % Lymphocytes % Monocytes % Eosinophils % Basophils % Nucleated RBC % D-Dimer Sodium 136 136 Potassium 4.5 4.3 Chloride 98 99 Carbon Dioxide 35 H 30 Anion Gap 4 L 7 L BUN 22.6 H 27.6 H Creatinine 0.9 0.9 Est GFR (CKD-EPI)AfAm 127.80 127.80 Est GFR (CKD-EPI)NonAf 110.27 110.27 POC Glucometer Random Glucose 293 H 350 H Calcium 8.7 8.9 Phosphorus 3.9 4.0 Magnesium 2.3 2.2 Ferritin 426.5 H 522.2 H Total Bilirubin 0.8 0.7 AST 9 L 12 L ALT 31 34 Alkaline Phosphatase 97 117 LD Total 368 H 398 H Creatine Kinase 47 Troponin I < 0.02 < 0.02 C-Reactive Protein 0.9 H 1.2 H B-Natriuretic Peptide 29.0 Total Protein 6.2 L 6.6 Albumin 2.9 L 3.1 L Triglycerides 76 Cholesterol 204 H Total LDL Cholesterol 122 H HDL Cholesterol 62 H TSH 0.52 02/22/20 02/22/20 02/22/20 05:39 05:39 11:17 WBC 11.0 H RBC 4.95 Hgb 11.9 Hct 37.7 MCV 76.2 L MCH 24.0 L MCHC 31.5 L RDW 16.8 H Plt Count 235 MPV 9.3 Absolute Neuts (auto) 7.8 Neutrophils % 70.8 Lymphocytes % 18.0 Monocytes % 8.9 Eosinophils % 1.8 Basophils % 0.5 Nucleated RBC % 0 D-Dimer 1314 H Sodium Potassium Chloride Carbon Dioxide Anion Gap BUN Creatinine Est GFR (CKD-EPI)AfAm Est GFR (CKD-EPI)NonAf POC Glucometer 210 Random Glucose Calcium Phosphorus Magnesium Ferritin Total Bilirubin AST ALT Alkaline Phosphatase LD Total Creatine Kinase Troponin I C-Reactive Protein B-Natriuretic Peptide Total Protein Albumin Triglycerides Cholesterol Total LDL Cholesterol HDL Cholesterol TSH Active Medications Generic Name Dose Route Start Last Admin Trade Name Freq PRN Reason Stop Dose Admin Acetaminophen 650 mg 02/14/20 19:42 02/16/20 08:18 Tylenol - PO 650 mg Q6H PRN Administration FEVER Al Hydroxide/Mg Hydroxide 30 ml 02/21/20 17:49 02/21/20 21:46 Mylanta Suspension - PO 30 ml Q6HPO PRN Administration DYSPEPSIA Albuterol Sulfate 1 puff 02/14/20 19:42 Ventolin Hfa Inhaler - IH Q4H PRN SHORT OF BREATH/WHEEZING Albuterol/Ipratropium 1 amp 02/17/20 20:00 02/22/20 09:05 Duoneb - NEB Not Given RTID SARAH Apixaban 5 mg 02/14/20 22:00 02/22/20 10:53 Eliquis - PO 5 mg BID SARAH Administration Ascorbic Acid 500 mg 02/14/20 22:00 02/22/20 10:52 Vitamin C - PO 500 mg BID SARAH Administration Aspirin 81 mg 02/15/20 10:00 02/22/20 10:52 Asa - PO 81 mg DAILY SARAH Administration Atorvastatin Calcium 40 mg 02/22/20 22:00 Lipitor - PO HS SARAH Cholecalciferol 2,000 unit 02/15/20 11:53 02/22/20 10:52 Vitamin D3 - PO 2,000 unit DAILY SARAH Administration Clotrimazole 1 applic 02/14/20 22:00 02/22/20 11:05 Lotrimin 1% Cream - TP 1 applic BID SARAH Administration Guaifenesin/Codeine Phosphate 10 ml 02/14/20 19:42 02/22/20 13:01 Robitussin Ac - PO 10 ml Q6H PRN Administration COUGH Famotidine/Sodium Chloride 20 mg in 50 mls @ 100 mls/hr 02/21/20 11:45 02/22/20 12:45 Pepcid 20 Mg Premixed Ivpb - IVPB 100 mls/hr DAILY SARAH Administration Insulin Aspart 1 vial 02/14/20 22:00 02/22/20 12:14 Novolog Vial Sliding Scale - SQ 4 units ACHS SARAH Administration Protocol Insulin Detemir 40 units 02/17/20 07:00 02/22/20 06:06 Levemir Vial SQ 40 unit ACBK SARAH Administration Insulin Detemir 40 units 02/21/20 14:11 02/21/20 22:18 Levemir Vial SQ 40 units HS SARAH Administration Melatonin 5 mg 02/14/20 19:42 Melatonin PO HS PRN INSOMNIA Methylprednisolone Sodium Succinate 10 mg 02/22/20 13:03 Solu-Medrol - IVPUSH BID [facility] Non-Formulary Medication 2 each 02/22/20 13:47 Patient's Own Med PO DAILY PRN [place] Ondansetron HCl 4 mg 02/14/20 19:42 Zofran Injection IVPUSH Q6H PRN NAUSEA Zinc Sulfate 220 mg 02/14/20 22:00 02/22/20 11:20 Orazinc - PO 220 mg BID SARAH Administration ASSESSMENT/PLAN: 34 y/o male with HTN (not on meds) and newly diagnosed DM on admission, who presents with 3-4 days of increasing dyspnea and diarrhea. Two days ago he began having chest pain with coughing. 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 #COVID 19 Pneumonia - pt cont to be SOB and have cough spells. continues to desat on ambulation. currently satting 93% on NRB - adjust between NRB and BiPAP (night) as needed to keep O2 >90, - however pt did not use o/n the BIPAP yesteday - s/p abx X 10 days - solumedrol 20 BID taper for 2 days now - inflammatory markers trend daily - vitamin C/vitamin D,zinc - full AC 5 BID eliquis - ID following- s/p convalescent plasma 01/25, s/p tocolizumab 01/29, remdisivir dose 01/30 given - prognosis guarded not much more to do other than watchful waiting at this time - echo when stable #Newly diagnosed DM - currently 210 but was 398 this morning as pt continues to eat junk food - A1C 10.5 - BGMs, c/w Levemir 40 in AM and HS dose increased to 40 as BG remains uncontrolled - goal BG 140-180, on steroids likely worsening it #Newly diagnosed HLD - total chol 204,LDL 122, HDL 62 - given RF ( obesity, DM, HTN), will start lipitor 40 HS #DVT Ppx Eliquis 5mg BID FEN PO fluids monitor labs diabetic diet dispo: Tele monitoring Visit type - Emergency Visit Emergency Visit: Yes ED Registration Date: 01/25/20 Care time: The patient presented to the Emergency Department on the above date and was hospitalized for further evaluation of their emergent condition. - New Patient This patient is new to me today: No - Critical Care Critical Care patient: No ATTENDING PHYSICIAN STATEMENT I saw and evaluated the patient. I reviewed the resident's note and discussed the case with the resident. I agree with the resident's findings and plan as documented. SUBJECTIVE: OBJECTIVE: ASSESSMENT AND PLAN:
[2020-02-22] MEDS ORDERED: PT OWN MED DRAWER 7, Y5N ONE (14:12)
--- NOTE | 2020-02-22 15:26 | PN ---
Teaching Attending Note Name of Resident: Nichole Hassan ATTENDING PHYSICIAN STATEMENT I saw and evaluated the patient. I reviewed the resident's note and discussed the case with the resident. I agree with the resident's findings and plan as documented. SUBJECTIVE: No fever or chills . had another episode fo CP last night . No cp this am , not even with deep inspiration. SOB is the same as yesterday he decl wilfred having a diagnosis of Dm as out pt OBJECTIVE: NAD. resting comfortably in bed Ext : No edema on legs No TTP over the chest wall No available disposable stethoscope ASSESSMENT AND PLAN: 34 y/o man with h/o HTN, and recent COVID diagnosis who presented with worsening SOB and was found to have acute resp failure 1- Acute hypoxic resp failure . due to COVID PNA . s/o taciliizumab, Remdisivir, , plasma, and Abx 2- Acute onset CP 3- New onset DM with uncontrolled blood sugar 4- H/o HTN 5- Hyperlipidemia Plan: - Cont NRB - cont Inhalers - cont eliquis BID - Cont steroids taper, day 2 on Solumedrol 20 BID - Card eval appreciated - cont Insulin 40 BID . A1c 10.5. not compliant with diet. orders from outside. [employer] at 5 am this am . - will consult dietitian for education - will add metformin at dc due to obesity - Add lipitor 40 mg daily. LDL > goal - patient was asked not to take his own excedrin. will prescribe for migrains monitor closely ASSESSMENT AND PLAN:
[2020-02-22] MEDS: ATORVASTATIN CA 40 MG TABLET (FP) PO SCH (21:17)
[2020-02-23] MEDS: ALBUTEROL SO4 2.5/IPRATROPIUM 0.5 INH SOL 3 ML VIAL.NEB. NEB SCH ×3 (00:10→13:25)
[2020-02-23] MEDS: INSULIN (LEVEMIR) 100 UNITS/ML UNITS SQ SCH ×2 (06:22→21:44)
[2020-02-23] MEDS: INSULIN SLIDING SCALE (NOVOLOG) 1 VIAL SQ SCH ×4 (06:24→21:44)
[2020-02-23 07:38] LABS: BASO % 0.9 % (0-2.0); EOS % 5.1 % (0-4.5); HEMOGLOBIN 11.5 GM/dL (11.7-16.9); LYMPH % 25.8 % (8-40); MCH 24.3 pg (25.7-33.7); MEAN PLT VOLUME 9.2 fl (7.5-11.1); MONO % 9.7 % (3.8-10.2); NEUT % 58.5 % (42.8-82.8); PLATELET COUNT 217 K/MM3 (134-434); RBC 4.74 M/mm3 (4.00-5.60); RDW 17.1 % (11.9-15.9); WHITE BLOOD COUNT 10.7 K/mm3 (4.0-10.0)
--- NOTE | 2020-02-23 07:51 | PN ---
Progress Note, Physician History of Present Illness: PULMONARY ALERT,OOB-CHAIR,LESS DYSPNEIC,ON 100%NRB - Current Medication List Current Medications: Active Medications Acetaminophen (Tylenol -) 650 mg PO Q6H PRN PRN Reason: FEVER Last Admin: 02/16/20 08:18 Dose: 650 mg Documented by: Al Hydroxide/Mg Hydroxide (Mylanta Suspension -) 30 ml PO Q6HPO PRN PRN Reason: DYSPEPSIA Last Admin: 02/21/20 21:46 Dose: 30 ml Documented by: Albuterol Sulfate (Ventolin Hfa Inhaler -) 1 puff IH Q4H PRN PRN Reason: SHORT OF BREATH/WHEEZING Albuterol/Ipratropium (Duoneb -) 1 amp NEB RTID [facility] Last Admin: 02/23/20 00:10 Dose: Not Given Documented by: Apixaban (Eliquis -) 5 mg PO BID [facility] Last Admin: 02/22/20 21:17 Dose: 5 mg Documented by: Ascorbic Acid (Vitamin C -) 500 mg PO BID [facility] Last Admin: 02/22/20 21:17 Dose: 500 mg Documented by: Aspirin (Asa -) 81 mg PO DAILY [facility] Last Admin: 02/22/20 10:52 Dose: 81 mg Documented by: Atorvastatin Calcium (Lipitor -) 40 mg PO [facility] Last Admin: 02/22/20 21:17 Dose: 40 mg Documented by: Cholecalciferol (Vitamin D3 -) 2,000 unit PO DAILY [facility] Last Admin: 02/22/20 10:52 Dose: 2,000 unit Documented by: Clotrimazole (Lotrimin 1% Cream -) 1 applic TP BID [facility] Last Admin: 02/22/20 21:19 Dose: 1 applic Documented by: Guaifenesin/Codeine Phosphate (Robitussin Ac -) 10 ml PO Q6H PRN PRN Reason: COUGH Last Admin: 02/22/20 13:01 Dose: 10 ml Documented by: Famotidine/Sodium Chloride (Pepcid 20 Mg Premixed Ivpb -) 20 mg in 50 mls @ 100 mls/hr IVPB DAILY [facility] Last Admin: 02/22/20 12:45 Dose: 100 mls/hr Documented by: Insulin Aspart (Novolog Vial Sliding Scale -) 1 vial SQ ACHS [facility]; Protocol Last Admin: 02/23/20 06:24 Dose: 2 units Documented by: Insulin Detemir (Levemir Vial) 40 units SQ ACBK [facility] Last Admin: 02/23/20 06:22 Dose: 40 unit Documented by: Insulin Detemir (Levemir Vial) 40 units SQ HS [facility] Last Admin: 02/22/20 21:20 Dose: 40 units Documented by: Melatonin (Melatonin) 5 mg PO HS PRN PRN Reason: INSOMNIA Methylprednisolone Sodium Succinate (Solu-Medrol -) 10 mg IVPUSH BID [facility] Last Admin: 02/22/20 21:17 Dose: 10 mg Documented by: Non-Formulary Medication (Patient's Own Med) 2 each PO DAILY PRN PRN Reason: HEADACHE Ondansetron HCl (Zofran Injection) 4 mg IVPUSH Q6H PRN PRN Reason: NAUSEA Zinc Sulfate (Orazinc -) 220 mg PO BID [facility] Last Admin: 02/22/20 21:17 Dose: 220 mg Documented by: - Objective Vital Signs: Vital Signs Temperature 98.1 F 02/23/20 05:00 Pulse Rate 70 02/23/20 05:00 Respiratory Rate 20 02/23/20 05:00 Blood Pressure 115/63 02/23/20 05:00 O2 Sat by Pulse Oximetry (%) 99 02/23/20 06:00 Constitutional: Yes: Calm, Obese Eyes: Yes: WNL HENT: Yes: WNL Neck: Yes: WNL Cardiovascular: Yes: Regular Rate and Rhythm, S1, S2 Respiratory: Yes: Diminished Gastrointestinal: Yes: Normal Bowel Sounds, Soft Extremities: Yes: WNL Edema: No Labs: Problem List - Problems (1) Acute hypoxemic respiratory failure Code(s): J96.01 - ACUTE RESPIRATORY FAILURE WITH HYPOXIA (2) COVID-19 Code(s): U07.1 - COVID POSITIVE (3) HTN (hypertension) Code(s): I10 - ESSENTIAL (PRIMARY) HYPERTENSION (4) REYNALDO (obstructive sleep apnea) Code(s): G47.33 - OBSTRUCTIVE SLEEP APNEA (ADULT) (PEDIATRIC) (5) Obesity Code(s): E66.9 - OBESITY, UNSPECIFIED Assessment/Plan A/P Acute Hypoxic Respiratory Failure COVID Pneumonia ARDS HTN DM - s/p remdesivir course - s/p tocilizumab infusion - taper medrol - empiric anticoagulation - completed empiric antibiotics - s/p convalescent plasma transfusion - trend ferritin, LDH, CRP - titrate O2 to keep SpO2 >90% - BiPAP as needed DR MCKEON
[2020-02-23 08:09] LABS: BLOOD UREA NITROGEN 15.8 mg/dL (7-18); MAGNESIUM 2.2 mg/dL (1.8-2.4); POTASSIUM 4.1 mmol/L (3.5-5.1)
[2020-02-23 08:14] LABS: ALBUMIN 2.8 g/dl (3.4-5.0); BILIRUBIN,TOTAL 1.5 mg/dL (0.2-1); CALCIUM 8.6 mg/dL (8.5-10.1); CREATININE 0.7 mg/dL (0.55-1.3); PHOSPHOROUS 4.1 mg/dL (2.5-4.9); TOT PROT 6.1 g/dl (6.4-8.2)
[2020-02-23] MEDS ORDERED: PT OWN MED DRAWER 7, Y5N ONE (09:34)
[2020-02-23] MEDS: FAMOTIDINE 20 MG/50 ML IVPB 20 MG/50 ML MG IVPB SCH (09:42)
[2020-02-23] MEDS: APIXABAN 5 MG TABLET PO SCH ×2 (09:42→21:43)
[2020-02-23] MEDS: CHOLECALCIFEROL (VIT D3) 1,000 UNIT (25 MCG) TABLET PO SCH (09:42)
[2020-02-23] MEDS: ZINC SULFATE 220 MG CAPSULE (FP) PO SCH ×2 (09:43→21:45)
[2020-02-23] MEDS: ASPIRIN 81 MG CHEWABLE TABLETS PO SCH (09:43)
[2020-02-23] MEDS: ASCORBIC ACID 500 MG TABLET (FP) PO SCH ×2 (09:43→21:42)
[2020-02-23] MEDS: methylPREDNISolone NA SUCC 40 MG/1 ML VIAL IVPUSH SCH ×2 (10:17→21:43)
[2020-02-23] MEDS: CLOTRIMAZOLE 1% CREAM 15 GM TUBE TP SCH ×2 (10:17→21:45)
[2020-02-23] MEDS: ACETAMINOPHEN 325 MG TABLET (FP) PO PRN (10:34)
--- NOTE | 2020-02-23 14:40 | PN ---
Physical Exam: SUBJECTIVE: Patient seen and examined. SOB improved as well as resp status satting 99-100% on NRB at rest and 97% on ambulation. fever overnight OBJECTIVE: Vital Signs Period Temp Pulse Resp BP Sys/Miner Pulse Ox Last 24 Hr 97.7 F-98.5 F 70-106 20-23 115-134/58-75 93-99 GENERAL: The patient is awake, alert, and fully oriented, in mild distress. HEAD: Normal with no signs of trauma. EYES: PERRL, extraocular movements intact, sclera anicteric, conjunctiva clear. No ptosis. NECK: Trachea midline, full range of motion, supple. LUNGS: NO ISOLATION STETHOSCOPE IN THE ROOM. HEART: NO ISOLATION STETHOSCOPE IN THE ROOM. ABDOMEN: Soft, nontender, obese, no guarding, no rebound, no hepatosplenomegaly, no masses. EXTREMITIES: 2+ pulses, warm, well-perfused, no edema. NEUROLOGICAL: Cranial nerves II through XII grossly intact. Normal speech, gait not observed. PSYCH: Normal mood, normal affect. SKIN: Warm, dry, normal turgor, no rashes or lesions noted Laboratory Results - last 24 hr 02/22/20 02/22/20 02/23/20 16:30 21:23 05:47 WBC RBC Hgb Hct MCV MCH MCHC RDW Plt Count MPV Absolute Neuts (auto) Neutrophils % Lymphocytes % Monocytes % Eosinophils % Basophils % Nucleated RBC % D-Dimer Sodium 137 Potassium 4.1 Chloride 99 Carbon Dioxide 33 H Anion Gap 6 L BUN 15.8 Creatinine 0.7 Est GFR (CKD-EPI)AfAm 141.70 Est GFR (CKD-EPI)NonAf 122.26 POC Glucometer 191 278 Random Glucose 159 H Calcium 8.6 Phosphorus 4.1 Magnesium 2.2 Ferritin 499.4 H Total Bilirubin 1.5 H AST 10 L ALT 27 Alkaline Phosphatase 81 LD Total 368 H C-Reactive Protein 1.2 H Total Protein 6.1 L Albumin 2.8 L 02/23/20 02/23/20 02/23/20 05:47 05:47 11:20 WBC 10.7 H RBC 4.74 Hgb 11.5 L Hct 36.0 MCV 76.0 L MCH 24.3 L MCHC 32.0 RDW 17.1 H Plt Count 217 MPV 9.2 Absolute Neuts (auto) 6.2 Neutrophils % 58.5 Lymphocytes % 25.8 D Monocytes % 9.7 Eosinophils % 5.1 H D Basophils % 0.9 Nucleated RBC % 0 D-Dimer 1134 H Sodium Potassium Chloride Carbon Dioxide Anion Gap BUN Creatinine Est GFR (CKD-EPI)AfAm Est GFR (CKD-EPI)NonAf POC Glucometer 181 Random Glucose Calcium Phosphorus Magnesium Ferritin Total Bilirubin AST ALT Alkaline Phosphatase LD Total C-Reactive Protein Total Protein Albumin Active Medications Generic Name Dose Route Start Last Admin Trade Name Freq PRN Reason Stop Dose Admin Acetaminophen 650 mg 02/14/20 19:42 02/23/20 10:34 Tylenol - PO 650 mg Q6H PRN Administration FEVER Al Hydroxide/Mg Hydroxide 30 ml 02/21/20 17:49 02/21/20 21:46 Mylanta Suspension - PO 30 ml Q6HPO PRN Administration DYSPEPSIA Albuterol Sulfate 1 puff 02/14/20 19:42 Ventolin Hfa Inhaler - IH Q4H PRN SHORT OF BREATH/WHEEZING Albuterol/Ipratropium 1 amp 02/17/20 20:00 02/23/20 13:25 Duoneb - NEB Not Given RTID SARAH Apixaban 5 mg 02/14/20 22:00 02/23/20 09:42 Eliquis - PO 5 mg BID SARAH Administration Ascorbic Acid 500 mg 02/14/20 22:00 02/23/20 09:43 Vitamin C - PO 500 mg BID SARAH Administration Aspirin 81 mg 02/15/20 10:00 02/23/20 09:43 Asa - PO 81 mg DAILY [facility] Administration Atorvastatin Calcium 40 mg 02/22/20 22:00 02/22/20 21:17 Lipitor - PO 40 mg HS [facility]AH Administration Cholecalciferol 2,000 unit 02/15/20 11:53 02/23/20 09:42 Vitamin D3 - PO 2,000 unit DAILY [facility] Administration Clotrimazole 1 applic 02/14/20 22:00 02/23/20 10:17 Lotrimin 1% Cream - TP 1 applic BID [facility]AH Administration Guaifenesin/Codeine Phosphate 10 ml 02/14/20 19:42 02/22/20 13:01 Robitussin Ac - PO 10 ml Q6H PRN Administration COUGH Insulin Aspart 1 vial 02/14/20 22:00 02/23/20 11:33 Novolog Vial Sliding Scale - SQ 2 units ACHS [facility] Administration Protocol Insulin Detemir 40 units 02/17/20 07:00 02/23/20 06:22 Levemir Vial SQ 40 unit ACBK [facility] Administration Insulin Detemir 40 units 02/21/20 14:11 02/22/20 21:20 Levemir Vial SQ 40 units HS [facility] Administration Melatonin 5 mg 02/14/20 19:42 Melatonin PO HS PRN INSOMNIA Methylprednisolone Sodium Succinate 10 mg 02/22/20 13:03 02/23/20 10:17 Solu-Medrol - IVPUSH 10 mg BID [facility]AH Administration Non-Formulary Medication 2 each 02/22/20 13:58 Patient's Own Med PO DAILY PRN HEADACHE Ondansetron HCl 4 mg 02/14/20 19:42 Zofran Injection IVPUSH Q6H PRN NAUSEA Zinc Sulfate 220 mg 02/14/20 22:00 02/23/20 09:43 Orazinc - PO 220 mg BID [facility] Administration ASSESSMENT/PLAN: 34 y/o male with HTN (not on meds) and newly diagnosed DM on admission, who presents with 3-4 days of increasing dyspnea and diarrhea. Two days ago he began having chest pain with coughing. 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 #COVID 19 Pneumonia - pt SOB improved this am but con to c/o cough. slept with BIPAP last night (helped breathing this am ?) - adjust between NRB and BiPAP (night) as needed to keep O2 >90 - fever spike this am. CXR slight interval worsening. will culture if spikes again - s/p abx X 10 days - solumedrol 10 BID taper - inflammatory markers trend daily. improving - vitamin C/vitamin D,zinc - full AC 5 BID eliquis - ID following- s/p convalescent plasma 01/25, s/p tocolizumab 01/29, remdisivir dose / given - prognosis guarded not much more to do other than watchful waiting at this time - echo when stable #Newly diagnosed DM - [id number] - A1C 10.5 - BGMs, c/w Levemir 40 in AM and HS dose increased to 40 as BG remains uncontrolled - goal BG 140-180, on steroids likely worsening it #Newly diagnosed HLD - total chol 204,LDL 122, HDL 62 - given RF ( obesity, DM, HTN), will start lipitor 40 HS #DVT Ppx Eliquis 5mg BID FEN PO fluids monitor labs diabetic diet dispo: Tele monitoring Visit type - Emergency Visit Emergency Visit: Yes ED Registration Date: 01/25/20 Care time: The patient presented to the Emergency Department on the above date and was hospitalized for further evaluation of their emergent condition. - New Patient This patient is new to me today: No - Critical Care Critical Care patient: No ATTENDING PHYSICIAN STATEMENT I saw and evaluated the patient. I reviewed the resident's note and discussed the case with the resident. I agree with the resident's findings and plan as documented. SUBJECTIVE: OBJECTIVE: ASSESSMENT AND PLAN:
--- NOTE | 2020-02-23 18:27 | PN ---
Teaching Attending Note Name of Resident: Nichole Hassan ATTENDING PHYSICIAN STATEMENT I saw and evaluated the patient. I reviewed the resident's note and discussed the case with the resident. I agree with the resident's findings and plan as documented. SUBJECTIVE: he declined interview OBJECTIVE: NAD , sweaty , breathing and speaking comfortably ASSESSMENT AND PLAN: 34 y/o man with h/o HTN, migraines, and recent COVID diagnosis who presented with worsening SOB and was found to have acute resp failure 1- Acute hypoxic resp failure . due to COVID PNA . s/o taciliizumab, Remdisivir, , plasma, and Abx 2- Acute onset CP 3- New onset DM with uncontrolled blood sugar 4- H/o HTN 5- Hyperlipidemia Plan: - Cont NRB . still on 15 L - fever this am ,. cxray repeated: poor inspiratory effort . if fever recur , will send blood cx - cont Inhalers - cont eliquis BID - Cont steroids taper,day 1 of 10 mg BID - cont Insulin 40 BID. - cont lipitor 40 mg daily. LDL > goal monitor closely
[2020-02-23] MEDS: ATORVASTATIN CA 40 MG TABLET (FP) PO SCH (21:43)
[2020-02-24] MEDS: INSULIN SLIDING SCALE (NOVOLOG) 1 VIAL SQ SCH ×4 (06:53→22:20)
[2020-02-24] MEDS: INSULIN (LEVEMIR) 100 UNITS/ML UNITS SQ SCH ×2 (06:53→22:20)
--- NOTE | 2020-02-24 07:51 | PN ---
Progress Note, Physician History of Present Illness: PULMONARY ALERT,OOB-CHAIR,ON 100%NRB,LESS DYSPNEIC,MILDLY TACHYPNEIC ,O2 SAT 100% - Current Medication List Current Medications: Active Medications Acetaminophen (Tylenol -) 650 mg PO Q6H PRN PRN Reason: FEVER Last Admin: 02/23/20 10:34 Dose: 650 mg Documented by: Al Hydroxide/Mg Hydroxide (Mylanta Suspension -) 30 ml PO Q6HPO PRN PRN Reason: DYSPEPSIA Last Admin: 02/21/20 21:46 Dose: 30 ml Documented by: Albuterol Sulfate (Ventolin Hfa Inhaler -) 1 puff IH Q4H PRN PRN Reason: SHORT OF BREATH/WHEEZING Albuterol/Ipratropium (Duoneb -) 1 amp NEB RTID [facility] Last Admin: 02/23/20 13:25 Dose: Not Given Documented by: Apixaban (Eliquis -) 5 mg PO BID [facility] Last Admin: 02/23/20 21:43 Dose: 5 mg Documented by: Ascorbic Acid (Vitamin C -) 500 mg PO BID [facility] Last Admin: 02/23/20 21:42 Dose: 500 mg Documented by: Aspirin (Asa -) 81 mg PO DAILY [facility] Last Admin: 02/23/20 09:43 Dose: 81 mg Documented by: Atorvastatin Calcium (Lipitor -) 40 mg PO HS [facility] Last Admin: 02/23/20 21:43 Dose: 40 mg Documented by: Cholecalciferol (Vitamin D3 -) 2,000 unit PO DAILY [facility] Last Admin: 02/23/20 09:42 Dose: 2,000 unit Documented by: Clotrimazole (Lotrimin 1% Cream -) 1 applic TP BID [facility] Last Admin: 02/23/20 21:45 Dose: 1 applic Documented by: Guaifenesin/Codeine Phosphate (Robitussin Ac -) 10 ml PO Q6H PRN PRN Reason: COUGH Last Admin: 02/22/20 13:01 Dose: 10 ml Documented by: Insulin Aspart (Novolog Vial Sliding Scale -) 1 vial SQ ACHS [facility]; Protocol Last Admin: 02/24/20 06:53 Dose: Not Given Documented by: Insulin Detemir (Levemir Vial) 40 units SQ ACBK [facility] Last Admin: 02/24/20 06:53 Dose: 40 unit Documented by: Insulin Detemir (Levemir Vial) 40 units SQ HS [facility] Last Admin: 02/23/20 21:44 Dose: 40 units Documented by: Melatonin (Melatonin) 5 mg PO HS PRN PRN Reason: INSOMNIA Non-Formulary Medication (Patient's Own Med) 2 each PO DAILY PRN PRN Reason: HEADACHE Ondansetron HCl (Zofran Injection) 4 mg IVPUSH Q6H PRN PRN Reason: NAUSEA Prednisone (Deltasone -) 20 mg PO DAILY [facility] Zinc Sulfate (Orazinc -) 220 mg PO BID [facility] Last Admin: 02/23/20 21:45 Dose: 220 mg Documented by: - Objective Vital Signs: Vital Signs Temperature 97.8 F 02/24/20 06:00 Pulse Rate 75 02/24/20 06:00 Respiratory Rate 18 02/24/20 06:00 Blood Pressure 124/57 L 02/24/20 06:00 O2 Sat by Pulse Oximetry (%) 99 02/24/20 04:26 Constitutional: Yes: Mild Distress, Obese Eyes: Yes: WNL HENT: Yes: WNL Neck: Yes: WNL Cardiovascular: Yes: Regular Rate and Rhythm, S1, S2 Respiratory: Yes: Diminished Gastrointestinal: Yes: Normal Bowel Sounds, Soft, Abdomen, Obese Extremities: Yes: WNL Edema: No Labs: CBC, BMP 02/23/20 05:47 02/23/20 05:47 INR, PTT INR 1.00 (0.83-1.09) 01/25/20 16:29 Laboratory Tests 02/24/20 02/24/20 06:39 06:39 D-Dimer 1183 H Ferritin 546.6 H LD Total 367 H C-Reactive Protein 1.9 H - ....Imaging Chest X-ray: Report Reviewed, Image Reviewed Problem List - Problems (1) Acute hypoxemic respiratory failure Code(s): J96.01 - ACUTE RESPIRATORY FAILURE WITH HYPOXIA (2) COVID-19 Code(s): U07.1 - COVID POSITIVE (3) HTN (hypertension) Code(s): I10 - ESSENTIAL (PRIMARY) HYPERTENSION (4) REYNALDO (obstructive sleep apnea) Code(s): G47.33 - OBSTRUCTIVE SLEEP APNEA (ADULT) (PEDIATRIC) (5) Obesity Code(s): E66.9 - OBESITY, UNSPECIFIED Assessment/Plan A/P Acute Hypoxic Respiratory Failure COVID Pneumonia ARDS HTN DM - s/p remdesivir course - s/p tocilizumab infusion - steroid taper - empiric anticoagulation - completed empiric antibiotics - s/p convalescent plasma transfusion - trend ferritin, LDH, CRP - O2 to keep SpO2 >90% - BiPAP as needed DR MCKEON
[2020-02-24 08:25] LABS: BASO % 0.7 % (0-2.0); EOS % 9.6 % (0-4.5); HEMATOCRIT 35.7 % (35.4-49); HEMOGLOBIN 11.4 GM/dL (11.7-16.9); LYMPH % 26.8 % (8-40); MCH 24.1 pg (25.7-33.7); MEAN CELL VOLUME 75.4 fl (80-96); MONO % 10.3 % (3.8-10.2); NEUT % 52.6 % (42.8-82.8); PLATELET COUNT 205 K/MM3 (134-434); RBC 4.73 M/mm3 (4.00-5.60); WHITE BLOOD COUNT 9.4 K/mm3 (4.0-10.0)
[2020-02-24 08:43] LABS: ALBUMIN 2.8 g/dl (3.4-5.0); BILIRUBIN,TOTAL 0.9 mg/dL (0.2-1); BLOOD UREA NITROGEN 18.1 mg/dL (7-18); CALCIUM 8.6 mg/dL (8.5-10.1); CREATININE 0.7 mg/dL (0.55-1.3); PHOSPHOROUS 4.4 mg/dL (2.5-4.9); POTASSIUM 4.1 mmol/L (3.5-5.1); TOT PROT 6.1 g/dl (6.4-8.2)
[2020-02-24] MEDS ORDERED: PT OWN MED DRAWER 7, Y5N ONE ×2 (09:08→10:54)
[2020-02-24] MEDS: APIXABAN 5 MG TABLET PO SCH ×2 (09:11→22:19)
[2020-02-24] MEDS: ASPIRIN 81 MG CHEWABLE TABLETS PO SCH (09:11)
[2020-02-24] MEDS: CLOTRIMAZOLE 1% CREAM 15 GM TUBE TP SCH ×2 (09:12→22:20)
[2020-02-24] MEDS: CHOLECALCIFEROL (VIT D3) 1,000 UNIT (25 MCG) TABLET PO SCH (09:12)
[2020-02-24] MEDS: ASCORBIC ACID 500 MG TABLET (FP) PO SCH ×2 (09:12→22:19)
[2020-02-24] MEDS: ZINC SULFATE 220 MG CAPSULE (FP) PO SCH ×2 (09:12→22:21)
[2020-02-24] MEDS: ALBUTEROL SO4 2.5/IPRATROPIUM 0.5 INH SOL 3 ML VIAL.NEB. NEB SCH (09:12)
[2020-02-24] MEDS ORDERED: predniSONE 20 MG TABLET (UD) PO SCH (10:00)
--- NOTE | 2020-02-24 15:17 | PN ---
Physical Exam: SUBJECTIVE: Patient seen and examined.SOB improved as well as resp status satting 99-100% on NRB at rest. NRB decreased to 10L OBJECTIVE: Vital Signs Period Temp Pulse Resp BP Sys/Miner Pulse Ox Last 24 Hr 97.7 F-98.2 F 74-106 18-22 114-153/57-81 98-100 GENERAL: The patient is awake, alert, and fully oriented, in mild distress. HEAD: Normal with no signs of trauma. EYES: PERRL, extraocular movements intact, sclera anicteric, conjunctiva clear. No ptosis. NECK: Trachea midline, full range of motion, supple. LUNGS: NO ISOLATION STETHOSCOPE IN THE ROOM. HEART: NO ISOLATION STETHOSCOPE IN THE ROOM. ABDOMEN: Soft, nontender, obese, no guarding, no rebound, no hepatosplenomegaly, no masses. EXTREMITIES: 2+ pulses, warm, well-perfused, no edema. NEUROLOGICAL: Cranial nerves II through XII grossly intact. Normal speech, gait not observed. PSYCH: Normal mood, normal affect. SKIN: Warm, dry, normal turgor, no rashes or lesions noted Laboratory Results - last 24 hr 02/23/20 02/23/20 02/24/20 16:59 21:41 06:39 WBC RBC Hgb Hct MCV MCH MCHC RDW Plt Count MPV Absolute Neuts (auto) Neutrophils % Lymphocytes % Monocytes % Eosinophils % Basophils % Nucleated RBC % D-Dimer Sodium 137 Potassium 4.1 Chloride 99 Carbon Dioxide 33 H Anion Gap 5 L BUN 18.1 H Creatinine 0.7 Est GFR (CKD-EPI)AfAm 141.70 Est GFR (CKD-EPI)NonAf 122.26 POC Glucometer 219 198 Random Glucose 140 H Calcium 8.6 Phosphorus 4.4 Ferritin 546.6 H Total Bilirubin 0.9 AST 10 L ALT 27 Alkaline Phosphatase 81 LD Total 367 H C-Reactive Protein 1.9 H Total Protein 6.1 L Albumin 2.8 L 02/24/20 02/24/20 02/24/20 06:39 06:39 06:45 WBC 9.4 RBC 4.73 Hgb 11.4 L Hct 35.7 MCV 75.4 L MCH 24.1 L MCHC 32.0 RDW 17.0 H Plt Count 205 MPV 9.0 Absolute Neuts (auto) 4.9 Neutrophils % 52.6 Lymphocytes % 26.8 Monocytes % 10.3 H Eosinophils % 9.6 H D Basophils % 0.7 Nucleated RBC % 0 D-Dimer 1183 H Sodium Potassium Chloride Carbon Dioxide Anion Gap BUN Creatinine Est GFR (CKD-EPI)AfAm Est GFR (CKD-EPI)NonAf POC Glucometer 126 Random Glucose Calcium Phosphorus Ferritin Total Bilirubin AST ALT Alkaline Phosphatase LD Total C-Reactive Protein Total Protein Albumin Active Medications Generic Name Dose Route Start Last Admin Trade Name Freq PRN Reason Stop Dose Admin Acetaminophen 650 mg 02/14/20 19:42 02/23/20 10:34 Tylenol - PO 650 mg Q6H PRN Administration FEVER Al Hydroxide/Mg Hydroxide 30 ml 02/21/20 17:49 02/21/20 21:46 Mylanta Suspension - PO 30 ml Q6HPO PRN Administration DYSPEPSIA Albuterol Sulfate 1 puff 02/14/20 19:42 Ventolin Hfa Inhaler - IH Q4H PRN SHORT OF BREATH/WHEEZING Apixaban 5 mg 02/14/20 22:00 02/24/20 09:11 Eliquis - PO 5 mg BID SARAH Administration Ascorbic Acid 500 mg 02/14/20 22:00 02/24/20 09:12 Vitamin C - PO 500 mg BID SARAH Administration Aspirin 81 mg 02/15/20 10:00 02/24/20 09:11 Asa - PO 81 mg DAILY SARAH Administration Atorvastatin Calcium 40 mg 02/22/20 22:00 02/23/20 21:43 Lipitor - PO 40 mg HS SARAH Administration Budesonide/Formoterol Fumarate 2 puff 02/24/20 22:00 Symbicort 80/4.5mcg - IH BID SARAH Cholecalciferol 2,000 unit 02/15/20 11:53 02/24/20 09:12 Vitamin D3 - PO 2,000 unit DAILY [facility]AH Administration Clotrimazole 1 applic 02/14/20 22:00 02/24/20 09:12 Lotrimin 1% Cream - TP 1 applic BID SARAH Administration Guaifenesin/Codeine Phosphate 10 ml 02/14/20 19:42 02/22/20 13:01 Robitussin Ac - PO 10 ml Q6H PRN Administration COUGH Insulin Aspart 1 vial 02/14/20 22:00 02/24/20 11:52 Novolog Vial Sliding Scale - SQ 2 units ACHS SARAH Administration Protocol Insulin Detemir 40 units 02/17/20 07:00 02/24/20 06:53 Levemir Vial SQ 40 unit ACBK [facility]AH Administration Insulin Detemir 40 units 02/21/20 14:11 02/23/20 21:44 Levemir Vial SQ 40 units HS [facility]AH Administration Melatonin 5 mg 02/14/20 19:42 Melatonin PO HS PRN INSOMNIA Non-Formulary Medication 2 each 02/22/20 13:58 Patient's Own Med PO DAILY PRN HEADACHE Ondansetron HCl 4 mg 02/14/20 19:42 Zofran Injection IVPUSH Q6H PRN NAUSEA Prednisone 15 mg 02/24/20 13:55 Deltasone - PO DAILY [facility]AH Zinc Sulfate 220 mg 02/14/20 22:00 02/24/20 09:12 Orazinc - PO 220 mg BID SARAH Administration ASSESSMENT/PLAN: 34 y/o male with HTN (not on meds) and newly diagnosed DM on admission, who presents with 3-4 days of increasing dyspnea and diarrhea. Two days ago he began having chest pain with coughing. 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 #COVID 19 Pneumonia - pt endorsed further improvement of SOB. sats remain in the high 90s to 100%. decreased NRB to 10L from 15L - no fever spikes. - adjust between NRB and BiPAP (night) as needed to keep O2 >90 - s/p abx X 10 days - switched to 15mg PO daily on taper - inflammatory markers trend daily. - vitamin C/vitamin D,zinc - full AC 5 BID eliquis - ID following- s/p convalescent plasma 01/25, s/p tocolizumab 01/29, remdisivir dose /5 given - prognosis guarded not much more to do other than watchful waiting at this time - echo when stable #Newly diagnosed DM - currently 126 - A1C 10.5 - BGMs, c/w Levemir 40 in AM and HS - goal BG 140-180, on steroids likely worsening it #Newly diagnosed HLD - total chol 204,LDL 122, HDL 62 - given RF ( obesity, DM, HTN), will start lipitor 40 HS #DVT Ppx Eliquis 5mg BID FEN PO fluids monitor labs diabetic diet dispo: Tele monitoring Visit type - Emergency Visit Emergency Visit: Yes ED Registration Date: 01/25/20 Care time: The patient presented to the Emergency Department on the above date and was hospitalized for further evaluation of their emergent condition. - New Patient This patient is new to me today: No - Critical Care Critical Care patient: No ATTENDING PHYSICIAN STATEMENT I saw and evaluated the patient. I reviewed the resident's note and discussed the case with the resident. I agree with the resident's findings and plan as documented. SUBJECTIVE: OBJECTIVE: ASSESSMENT AND PLAN:
--- NOTE | 2020-02-24 18:14 | PN ---
Teaching Attending Note Name of Resident: Nichole Hassan ATTENDING PHYSICIAN STATEMENT I saw and evaluated the patient. I reviewed the resident's note and discussed the case with the resident. I agree with the resident's findings and plan as documented. SUBJECTIVE: No fever or chills. feels better but still SOb and has cough. little hemoptysis with cough OBJECTIVE: NAd, comfortable sitting at edge of the bed. speaks in short sentences CV: RRR Lungs: shallow short bbreaths. no crackles heard Ext : No edema or erythema on legs Plan : 34 y/o man with h/o HTN, migraines, and recent COVID diagnosis who presented with worsening SOB and was found to have acute resp failure 1- Acute hypoxic resp failure . due to COVID PNA . s/o taciliizumab, Remdisivir, , plasma, and Abx 2- Acute onset CP 3- New onset DM with uncontrolled blood sugar 4- H/o HTN 5- Hyperlipidemia Plan: - Cont NRB . but decrease to 10 Liters. transition to NC when appropriate - add albuterol and symbicort - cont eliquis BID - Cont steroids taper. prednisone 15 mg - cont Insulin 40 BID. - cont lipitor 40 mg daily. blood work break tomorrow, as labs will not mold changer at this point monitor closely
[2020-02-24] MEDS: guaiFENesin/CODEINE 10 ML UNIT-DOSE CUPS PO PRN (18:38)
[2020-02-24] MEDS: ATORVASTATIN CA 40 MG TABLET (FP) PO SCH (22:19)
[2020-02-24] MEDS: BUDESONIDE/FORMETEROL FUMARATE 80/4.5 mcg INHALER IH SCH (22:21)
--- NOTE | 2020-02-25 04:27 | PN ---
Progress Note, Physician - Current Medication List Current Medications: Active Medications Acetaminophen (Tylenol -) 650 mg PO Q6H PRN PRN Reason: FEVER Last Admin: 02/23/20 10:34 Dose: 650 mg Documented by: Al Hydroxide/Mg Hydroxide (Mylanta Suspension -) 30 ml PO Q6HPO PRN PRN Reason: DYSPEPSIA Last Admin: 02/21/20 21:46 Dose: 30 ml Documented by: Albuterol Sulfate (Ventolin Hfa Inhaler -) 1 puff IH Q4H PRN PRN Reason: SHORT OF BREATH/WHEEZING Apixaban (Eliquis -) 5 mg PO BID [facility] Last Admin: 02/24/20 22:19 Dose: 5 mg Documented by: Ascorbic Acid (Vitamin C -) 500 mg PO BID [facility] Last Admin: 02/24/20 22:19 Dose: 500 mg Documented by: Aspirin (Asa -) 81 mg PO DAILY [facility] Last Admin: 02/24/20 09:11 Dose: 81 mg Documented by: Atorvastatin Calcium (Lipitor -) 40 mg PO HS [facility] Last Admin: 02/24/20 22:19 Dose: 40 mg Documented by: Budesonide/Formoterol Fumarate (Symbicort 80/4.5mcg -) 2 puff IH BID [facility] Last Admin: 02/24/20 22:21 Dose: 2 puff Documented by: Cholecalciferol (Vitamin D3 -) 2,000 unit PO DAILY [facility] Last Admin: 02/24/20 09:12 Dose: 2,000 unit Documented by: Clotrimazole (Lotrimin 1% Cream -) 1 applic TP BID [facility] Last Admin: 02/24/20 22:20 Dose: 1 applic Documented by: Guaifenesin/Codeine Phosphate (Robitussin Ac -) 10 ml PO Q6H PRN PRN Reason: COUGH Last Admin: 02/24/20 18:38 Dose: 10 ml Documented by: Insulin Aspart (Novolog Vial Sliding Scale -) 1 vial SQ [facility]; Protocol Last Admin: 02/24/20 22:20 Dose: 4 units Documented by: Insulin Detemir (Levemir Vial) 40 units SQ ACBK [facility] Last Admin: 02/24/20 06:53 Dose: 40 unit Documented by: Insulin Detemir (Levemir Vial) 40 units SQ [facility] Last Admin: 02/24/20 22:20 Dose: 40 units Documented by: Melatonin (Melatonin) 5 mg PO HS PRN PRN Reason: INSOMNIA Non-Formulary Medication (Patient's Own Med) 2 each PO DAILY PRN PRN Reason: HEADACHE Ondansetron HCl (Zofran Injection) 4 mg IVPUSH Q6H PRN PRN Reason: NAUSEA Prednisone (Deltasone -) 15 mg PO DAILY [facility] Zinc Sulfate (Orazinc -) 220 mg PO BID [facility] Last Admin: 02/24/20 22:21 Dose: 220 mg Documented by: - Objective Vital Signs: Vital Signs Temperature 97.8 F 02/24/20 22:00 Pulse Rate 92 H 02/24/20 22:00 Respiratory Rate 22 H 02/24/20 22:00 Blood Pressure 102/67 02/24/20 22:00 O2 Sat by Pulse Oximetry (%) 99 02/25/20 00:25 Labs: CBC, BMP 02/24/20 06:39 02/24/20 06:39 INR, PTT INR 1.00 (0.83-1.09) 01/25/20 16:29
--- NOTE | 2020-02-25 04:28 | PN ---
Progress Note, Physician Chief Complaint: Pt A&Ox3; sitting in chair; no chest pain; walked to bathroom with less shortness of breath. History of Present Illness: 34yo black man with morbid obesity, DM, hyperlipidemia, ?sleep apnea, recent COVID positive test, presents to the ED with shortness of breath and extreme f atigue. Recently on azithromycin course without relief. Saturating at 98% on room air, placed on 2L nasal cannula upon arrival with symptomatic relief. Patient has been progressively short of breath since diagnosis. Called because pt c/o strong, sharp left breast pain that began today at rest, lasted about an hour. Pt says he had had a similar pain, though less severe and of shorter duration while in the ICU. Pt denies personal or family hx of heart disease; his father has DM. Pt never smoked; does not drink to excess. 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 - Current Medication List Current Medications: Active Medications Acetaminophen (Tylenol -) 650 mg PO Q6H PRN PRN Reason: FEVER Last Admin: 02/23/20 10:34 Dose: 650 mg Documented by: Al Hydroxide/Mg Hydroxide (Mylanta Suspension -) 30 ml PO Q6HPO PRN PRN Reason: DYSPEPSIA Last Admin: 02/21/20 21:46 Dose: 30 ml Documented by: Albuterol Sulfate (Ventolin Hfa Inhaler -) 1 puff IH Q4H PRN PRN Reason: SHORT OF BREATH/WHEEZING Apixaban (Eliquis -) 5 mg PO BID [facility] Last Admin: 02/24/20 22:19 Dose: 5 mg Documented by: Ascorbic Acid (Vitamin C -) 500 mg PO BID [facility] Last Admin: 02/24/20 22:19 Dose: 500 mg Documented by: Aspirin (Asa -) 81 mg PO DAILY [facility] Last Admin: 02/24/20 09:11 Dose: 81 mg Documented by: Atorvastatin Calcium (Lipitor -) 40 mg PO HS [facility] Last Admin: 02/24/20 22:19 Dose: 40 mg Documented by: Budesonide/Formoterol Fumarate (Symbicort 80/4.5mcg -) 2 puff IH BID [facility] Last Admin: 02/24/20 22:21 Dose: 2 puff Documented by: Cholecalciferol (Vitamin D3 -) 2,000 unit PO DAILY [facility] Last Admin: 02/24/20 09:12 Dose: 2,000 unit Documented by: Clotrimazole (Lotrimin 1% Cream -) 1 applic TP BID [facility] Last Admin: 02/24/20 22:20 Dose: 1 applic Documented by: Guaifenesin/Codeine Phosphate (Robitussin Ac -) 10 ml PO Q6H PRN PRN Reason: COUGH Last Admin: 02/24/20 18:38 Dose: 10 ml Documented by: Insulin Aspart (Novolog Vial Sliding Scale -) 1 vial SQ ACHS [facility]; Protocol Last Admin: 02/24/20 22:20 Dose: 4 units Documented by: Insulin Detemir (Levemir Vial) 40 units SQ ACBK [facility] Last Admin: 02/24/20 06:53 Dose: 40 unit Documented by: Insulin Detemir (Levemir Vial) 40 units SQ HS [facility] Last Admin: 02/24/20 22:20 Dose: 40 units Documented by: Melatonin (Melatonin) 5 mg PO HS PRN PRN Reason: INSOMNIA Non-Formulary Medication (Patient's Own Med) 2 each PO DAILY PRN PRN Reason: HEADACHE Ondansetron HCl (Zofran Injection) 4 mg IVPUSH Q6H PRN PRN Reason: NAUSEA Prednisone (Deltasone -) 15 mg PO DAILY [facility] Zinc Sulfate (Orazinc -) 220 mg PO BID [facility] Last Admin: 02/24/20 22:21 Dose: 220 mg Documented by: - Objective Vital Signs: Vital Signs Temperature 97.8 F 02/24/20 22:00 Pulse Rate 92 H 02/24/20 22:00 Respiratory Rate 22 H 02/24/20 22:00 Blood Pressure 102/67 02/24/20 22:00 O2 Sat by Pulse Oximetry (%) 99 02/25/20 00:25 Constitutional: Yes: Calm Eyes: Yes: WNL HENT: Yes: WNL Neck: Yes: WNL Cardiovascular: Yes: S1, S2 Respiratory: Yes: SOB on Exertion, Tachypnea ...Rectal Exam: Yes: Deferred Genitourinary: No: Anuria Extremities: Yes: WNL Edema: No Peripheral Pulses WNL: Yes Integumentary: Yes: WNL Neurological: Yes: WNL Psychiatric: Yes: Alert, Oriented, Other Labs: CBC, BMP 02/24/20 06:39 02/24/20 06:39 INR, PTT INR 1.00 (0.83-1.09) 01/25/20 16:29 - ....Imaging Chest X-ray: Image Reviewed EKG: Image Reviewed Assessment/Plan COVID pneumonia ARDS Hyperlipidemia DM Obesity Atypical chest pain Plan: TNI < 0.02 x 2 EKG:NSR; no acute changes F/u lipid profile, and keep LDL cholesterol < 70 mg;dL with statin, diet change. On apixaban. Start statin, and keep LDL cholesterol < 70 mg/dL BUN/Cr, electrolytes, daily weight, Is and Os. ECHO for LVEF, wall motion, valve status. Consider starting ACEI for renal protection (DM) if BP allows. Plan on stress MIBI, due to multiple CAD risks, when stable.
[2020-02-25] MEDS: INSULIN (LEVEMIR) 100 UNITS/ML UNITS SQ SCH ×2 (07:09→22:19)
[2020-02-25] MEDS: INSULIN SLIDING SCALE (NOVOLOG) 1 VIAL SQ SCH ×4 (07:09→22:20)
--- NOTE | 2020-02-25 07:09 | PN ---
Progress Note, Physician History of Present Illness: PULMONARY DYSPNEIC ON 100% NRB,DESATURATES TO MID 70S OFF O2,+ COUGH - Current Medication List Current Medications: Active Medications Acetaminophen (Tylenol -) 650 mg PO Q6H PRN PRN Reason: FEVER Last Admin: 02/23/20 10:34 Dose: 650 mg Documented by: Al Hydroxide/Mg Hydroxide (Mylanta Suspension -) 30 ml PO Q6HPO PRN PRN Reason: DYSPEPSIA Last Admin: 02/21/20 21:46 Dose: 30 ml Documented by: Albuterol Sulfate (Ventolin Hfa Inhaler -) 1 puff IH Q4H PRN PRN Reason: SHORT OF BREATH/WHEEZING Apixaban (Eliquis -) 5 mg PO BID [facility] Last Admin: 02/24/20 22:19 Dose: 5 mg Documented by: Ascorbic Acid (Vitamin C -) 500 mg PO BID [facility] Last Admin: 02/24/20 22:19 Dose: 500 mg Documented by: Aspirin (Asa -) 81 mg PO DAILY [facility] Last Admin: 02/24/20 09:11 Dose: 81 mg Documented by: Atorvastatin Calcium (Lipitor -) 40 mg PO HS [facility] Last Admin: 02/24/20 22:19 Dose: 40 mg Documented by: Budesonide/Formoterol Fumarate (Symbicort 80/4.5mcg -) 2 puff IH BID [facility] Last Admin: 02/24/20 22:21 Dose: 2 puff Documented by: Cholecalciferol (Vitamin D3 -) 2,000 unit PO DAILY [facility] Last Admin: 02/24/20 09:12 Dose: 2,000 unit Documented by: Clotrimazole (Lotrimin 1% Cream -) 1 applic TP BID [facility] Last Admin: 02/24/20 22:20 Dose: 1 applic Documented by: Guaifenesin/Codeine Phosphate (Robitussin Ac -) 10 ml PO Q6H PRN PRN Reason: COUGH Last Admin: 02/24/20 18:38 Dose: 10 ml Documented by: Insulin Aspart (Novolog Vial Sliding Scale -) 1 vial SQ [facility]; Protocol Last Admin: 02/24/20 22:20 Dose: 4 units Documented by: Insulin Detemir (Levemir Vial) 40 [facility] SQ [facility] Last Admin: 02/24/20 06:53 Dose: 40 unit Documented by: Insulin Detemir (Levemir Vial) 40 units SQ HS [facility] Last Admin: 02/24/20 22:20 Dose: 40 units Documented by: Melatonin (Melatonin) 5 mg PO HS PRN PRN Reason: INSOMNIA Non-Formulary Medication (Patient's Own Med) 2 each PO DAILY PRN PRN Reason: HEADACHE Ondansetron HCl (Zofran Injection) 4 mg IVPUSH Q6H PRN PRN Reason: NAUSEA Prednisone (Deltasone -) 15 mg PO DAILY [facility] Zinc Sulfate (Orazinc -) 220 mg PO BID [facility] Last Admin: 02/24/20 22:21 Dose: 220 mg Documented by: - Objective Vital Signs: Vital Signs Temperature 97.8 F 02/24/20 22:00 Pulse Rate 92 H 02/24/20 22:00 Respiratory Rate 22 H 02/24/20 22:00 Blood Pressure 102/67 02/24/20 22:00 O2 Sat by Pulse Oximetry (%) 98 02/25/20 04:15 Constitutional: Yes: Moderate Distress, Obese Eyes: Yes: WNL HENT: Yes: WNL Neck: Yes: WNL Cardiovascular: Yes: Regular Rate and Rhythm, S1, S2 Respiratory: Yes: Diminished (BIBASAILR RALES) Gastrointestinal: Yes: Normal Bowel Sounds, Soft Extremities: Yes: WNL Edema: No Labs: Problem List - Problems (1) Acute hypoxemic respiratory failure Code(s): J96.01 - ACUTE RESPIRATORY FAILURE WITH HYPOXIA (2) COVID-19 Code(s): U07.1 - COVID POSITIVE (3) HTN (hypertension) Code(s): I10 - ESSENTIAL (PRIMARY) HYPERTENSION (4) REYNALDO (obstructive sleep apnea) Code(s): G47.33 - OBSTRUCTIVE SLEEP APNEA (ADULT) (PEDIATRIC) (5) Obesity Code(s): E66.9 - OBESITY, UNSPECIFIED Assessment/Plan A/P Acute Hypoxic Respiratory Failure COVID Pneumonia ARDS HTN DM - s/p remdesivir course - s/p tocilizumab infusion - steroid taper - empiric anticoagulation - completed empiric antibiotics - s/p convalescent plasma transfusion - trend ferritin, LDH, CRP - O2 to keep SpO2 >90% - BiPAP if pt complies DR MCKEON
--- NOTE | 2020-02-25 10:14 | PN ---
Progress Note (short form) - Note Progress Note: 34yo black man with morbid obesity, DM, hyperlipidemia, ?sleep apnea, recent COVID positive test, presents to the ED with shortness of breath and extreme fatigue. Recently on azithromycin course without relief. Saturating at 98% on room air, placed on 2L nasal cannula upon arrival with symptomatic relief. Patient has been progressively short of breath since diagnosis. Had strong, sharp left breast pain yesterday at rest, lasted about an hour. Pt says he had had a similar pain, though less severe and of shorter duration while in the ICU. Pt denies personal or family hx of heart disease; his father has DM. Pt never smoked; does not drink to excess. 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 No acute cardiac issues Vital Signs Temperature 98.2 F 02/25/20 06:00 Pulse Rate 76 02/25/20 06:00 Respiratory Rate 22 H 02/25/20 06:00 Blood Pressure 115/57 L 02/25/20 06:00 O2 Sat by Pulse Oximetry (%) 98 02/25/20 04:15 Labs: CBC, BMP 02/24/20 06:39 02/24/20 06:39 Active Medications Acetaminophen (Tylenol -) 650 mg PO Q6H PRN PRN Reason: FEVER Last Admin: 02/23/20 10:34 Dose: 650 mg Documented by: Al Hydroxide/Mg Hydroxide (Mylanta Suspension -) 30 ml PO Q6HPO PRN PRN Reason: DYSPEPSIA Last Admin: 02/21/20 21:46 Dose: 30 ml Documented by: Albuterol Sulfate (Ventolin Hfa Inhaler -) 1 puff IH Q4H PRN PRN Reason: SHORT OF BREATH/WHEEZING Apixaban (Eliquis -) 5 mg PO BID [facility] Last Admin: 02/24/20 22:19 Dose: 5 mg Documented by: Ascorbic Acid (Vitamin C -) 500 mg PO BID [facility] Last Admin: 02/24/20 22:19 Dose: 500 mg Documented by: Aspirin (Asa -) 81 mg PO DAILY [facility] Last Admin: 02/24/20 09:11 Dose: 81 mg Documented by: Atorvastatin Calcium (Lipitor -) 40 mg PO HS [facility] Last Admin: 02/24/20 22:19 Dose: 40 mg Documented by: Budesonide/Formoterol Fumarate (Symbicort 80/4.5mcg -) 2 puff IH BID [facility] Last Admin: 02/24/20 22:21 Dose: 2 puff Documented by: Cholecalciferol (Vitamin D3 -) 2,000 unit PO DAILY [facility] Last Admin: 02/24/20 09:12 Dose: 2,000 unit Documented by: Clotrimazole (Lotrimin 1% Cream -) 1 applic TP BID [facility] Last Admin: 02/24/20 22:20 Dose: 1 applic Documented by: Guaifenesin/Codeine Phosphate (Robitussin Ac -) 10 ml PO Q6H PRN PRN Reason: COUGH Last Admin: 02/24/20 18:38 Dose: 10 ml Documented by: Insulin Aspart (Novolog Vial Sliding Scale -) 1 vial SQ ACHS [facility]; Protocol Last Admin: 02/25/20 07:09 Dose: Not Given Documented by: Insulin Detemir (Levemir Vial) 40 units SQ ACBK [facility] Last Admin: 02/25/20 07:09 Dose: 40 unit Documented by: Insulin Detemir (Levemir Vial) 40 units SQ HS [facility] Last Admin: 02/24/20 22:20 Dose: 40 units Documented by: Melatonin (Melatonin) 5 mg PO HS PRN PRN Reason: INSOMNIA Non-Formulary Medication (Patient's Own Med) 2 each PO DAILY PRN PRN Reason: HEADACHE Ondansetron HCl (Zofran Injection) 4 mg IVPUSH Q6H PRN PRN Reason: NAUSEA Prednisone (Deltasone -) 15 mg PO DAILY [facility] Zinc Sulfate (Orazinc -) 220 mg PO BID [facility] Last Admin: 02/24/20 22:21 Dose: 220 mg Documented by: - ....Imaging Chest X-ray: Image Reviewed EKG: Image Reviewed Assessment/Plan COVID pneumonia ARDS Hyperlipidemia DM Obesity Atypical chest pain Plan: Same as below; TNI < 0.02 x 2 EKG:NSR; no acute changes F/u lipid profile, and keep LDL cholesterol < 70 mg;dL with statin, diet change. On apixaban. Start statin, and keep LDL cholesterol < 70 mg/dL BUN/Cr, electrolytes, daily weight, Is and Os. ECHO for LVEF, wall motion, valve status when feasible Consider starting ACEI for renal protection (DM) if BP allows. Plan on stress MIBI, due to multiple CAD risks, when stable. F/Y with Dr Rossi
[2020-02-25] MEDS: APIXABAN 5 MG TABLET PO SCH ×2 (10:26→22:19)
[2020-02-25] MEDS: predniSONE 10 MG TABLET (UD) PO SCH (10:26)
[2020-02-25] MEDS: ASPIRIN 81 MG CHEWABLE TABLETS PO SCH (10:26)
[2020-02-25] MEDS: CLOTRIMAZOLE 1% CREAM 15 GM TUBE TP SCH ×3 (10:26→22:55)
[2020-02-25] MEDS: ZINC SULFATE 220 MG CAPSULE (FP) PO SCH ×2 (10:27→22:21)
[2020-02-25] MEDS: ASCORBIC ACID 500 MG TABLET (FP) PO SCH ×2 (10:27→22:21)
[2020-02-25] MEDS: CHOLECALCIFEROL (VIT D3) 1,000 UNIT (25 MCG) TABLET PO SCH (10:27)
[2020-02-25] MEDS: guaiFENesin/CODEINE 10 ML UNIT-DOSE CUPS PO PRN (10:27)
[2020-02-25] MEDS: BUDESONIDE/FORMETEROL FUMARATE 80/4.5 mcg INHALER IH SCH ×2 (10:27→22:21)
--- NOTE | 2020-02-25 11:07 | PN ---
Progress Note (short form) - Note Progress Note: Called to evaluate patient for possible ICU admission 2/2 increase O2 requirement, cough. Pt is a 34 y/o man with morbid obesity, prolonged hospitalization due to COVID- 19 pneumonia and ARDS. He has received multiple therapies (toci, conv plasma, steroids) but remains with diffuse multifocal disease on CXR. He is currently afebrile, not in shock, does not appear overloaded, has largely non-productive cough. He is saturating 98% on NRB at rest. He denies chest pain. He endorse scant blood tinge of the little sputum he produces but no chela hemoptysis. He relates feeling ok but "didn't have a good night". He is awake and conversant, has no accessory muscle use, and does not appear to have impending respiratory failure. At this time pt is stable to stay on the floor. He is able to alert nurses if he feels he is deteriorating. He is not in extremis. There are no new disease modify therapies clearly indicated as he has not significantly improved after multiple covid directed agents. Would suggest checking CBC to make sure no rising WBC, would closely monitor for fever or purulent sputum as new superimposed bacteria pneumonia would be most likely cause for deterioration. Furthermore if there is any significant increase in blood tinged sputum then his anti-coagulation would need to be held. Please call the pulmonary service or [facility] if pt acutely worsen or for new significant changes. Thank you. Damien Linn [facility] 2010
--- NOTE | 2020-02-25 12:12 | PN ---
Physical Exam: SUBJECTIVE: Patient seen and examined at the bedside wearing NRB. Pt de-satting this morning to the 70s but refusing to wear NRB. OBJECTIVE: Vital Signs Period Temp Pulse Resp BP Sys/Miner Pulse Ox Last 24 Hr 97.7 F-98.2 F 74-92 22-22 102-115/57-70 98-100 GENERAL: The patient is awake, alert, and fully oriented, in mild distress. HEAD: Normal with no signs of trauma. EYES: PERRL, extraocular movements intact, sclera anicteric, conjunctiva clear. No ptosis. NECK: Trachea midline, full range of motion, supple. LUNGS: NO ISOLATION STETHOSCOPE IN THE ROOM. HEART: NO ISOLATION STETHOSCOPE IN THE ROOM. ABDOMEN: Soft, nontender, obese, no guarding, no rebound, no hepatosplenomegaly, no masses. EXTREMITIES: 2+ pulses, warm, well-perfused, no edema. NEUROLOGICAL: Cranial nerves II through XII grossly intact. Normal speech, gait not observed. PSYCH: Normal mood, normal affect. SKIN: Warm, dry, normal turgor, no rashes or lesions noted Laboratory Results - last 24 hr 02/24/20 02/25/20 16:21 11:54 POC Glucometer 238 141 Active Medications Generic Name Dose Route Start Last Admin Trade Name Freq PRN Reason Stop Dose Admin Acetaminophen 650 mg 02/14/20 19:42 02/23/20 10:34 Tylenol - PO 650 mg Q6H PRN Administration FEVER Al Hydroxide/Mg Hydroxide 30 ml 02/21/20 17:49 02/21/20 21:46 Mylanta Suspension - PO 30 ml Q6HPO PRN Administration DYSPEPSIA Albuterol Sulfate 1 puff 02/14/20 19:42 Ventolin Hfa Inhaler - IH Q4H PRN SHORT OF BREATH/WHEEZING Apixaban 5 mg 02/14/20 22:00 02/25/20 10:26 Eliquis - PO 5 mg BID [facility] Administration Ascorbic Acid 500 mg 02/14/20 22:00 02/25/20 10:27 Vitamin C - PO 500 mg BID [facility] Administration Aspirin 81 mg 02/15/20 10:00 02/25/20 10:26 Asa - PO 81 mg DAILY [facility] Administration Atorvastatin Calcium 40 mg 02/22/20 22:00 02/24/20 22:19 Lipitor - PO 40 mg HS [facility] Administration Budesonide/Formoterol Fumarate 2 puff 02/24/20 22:00 02/25/20 10:27 Symbicort 80/4.5mcg - IH 2 puff BID [facility] Administration Cholecalciferol 2,000 unit 02/15/20 11:53 02/25/20 10:27 Vitamin D3 - PO 2,000 unit DAILY [facility] Administration Clotrimazole 1 applic 02/14/20 22:00 02/25/20 10:26 Lotrimin 1% Cream - TP 1 applic BID [facility] Administration Guaifenesin/Codeine Phosphate 10 ml 02/14/20 19:42 02/25/20 10:27 Robitussin Ac - PO 10 ml Q6H PRN Administration COUGH Insulin Aspart 1 vial 02/14/20 22:00 02/25/20 12:06 Novolog Vial Sliding Scale - SQ Not Given ACHS [facility] Protocol Insulin Detemir 40 units 02/17/20 07:00 02/25/20 07:09 Levemir Vial SQ 40 unit ACBK [facility] Administration Insulin Detemir 40 units 02/21/20 14:11 02/24/20 22:20 Levemir Vial SQ 40 units HS [facility] Administration Melatonin 5 mg 02/14/20 19:42 Melatonin PO HS PRN INSOMNIA Non-Formulary Medication 2 each 02/22/20 13:58 Patient's Own Med PO DAILY PRN HEADACHE Ondansetron HCl 4 mg 02/14/20 19:42 Zofran Injection IVPUSH Q6H PRN NAUSEA Prednisone 15 mg 02/24/20 13:55 02/25/20 10:26 Deltasone - PO 15 mg DAILY [facility] Administration Zinc Sulfate 220 mg 02/14/20 22:00 02/25/20 10:27 Orazinc - PO 220 mg BID [facility] Administration ASSESSMENT/PLAN: 34 y/o male with HTN (not on meds) and newly diagnosed DM on admission, who presents with 3-4 days of increasing dyspnea and diarrhea. Two days ago he began having chest pain with coughing. 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 #COVID 19 Pneumonia - pt desatting to the 70s this AM, refused BiPAP, O2 sats returned to low 90s with cessation of coughing. - no fever spikes. - adjust between NRB and BiPAP (night) as needed to keep O2 >90 - s/p abx X 10 days - switched to 15mg PO daily on taper - inflammatory markers trend daily. - vitamin C/vitamin D,zinc - full AC 5 BID eliquis - ID following- s/p convalescent plasma 01/25, s/p tocolizumab 01/29, remdisivir dose 01/30 given - prognosis guarded not much more to do other than watchful waiting at this time - echo when stable #Newly diagnosed DM - currently 126 - A1C 10.5 - BGMs, c/w Levemir 40 in AM and HS - goal BG 140-180, on steroids likely worsening it #Newly diagnosed HLD - total chol 204,LDL 122, HDL 62 - given RF ( obesity, DM, HTN), will start lipitor 40 HS #DVT Ppx Eliquis 5mg BID FEN PO fluids monitor labs diabetic diet dispo: Tele monitoring Visit type - Emergency Visit Emergency Visit: Yes ED Registration Date: 01/25/20 Care time: The patient presented to the Emergency Department on the above date and was hospitalized for further evaluation of their emergent condition. - New Patient This patient is new to me today: Yes Date on this admission: 02/25/20 - Critical Care Critical Care patient: No - Discharge Referral Referred to [facility] Med P.C.: No ATTENDING PHYSICIAN STATEMENT I saw and evaluated the patient. I reviewed the resident's note and discussed the case with the resident. I agree with the resident's findings and plan as documented. SUBJECTIVE: OBJECTIVE: ASSESSMENT AND PLAN:
[2020-02-25] MEDS ORDERED: ALPRAZolam 1 MG TABLET PO PRN (14:00)
[2020-02-25] MEDS ORDERED: ALPRAZolam 0.25 MG TABLET PO PRN ×2 (14:19→15:37)
--- NOTE | 2020-02-25 15:44 | PN ---
Teaching Attending Note Name of Resident: Beth Hooks ATTENDING PHYSICIAN STATEMENT I saw and evaluated the patient. I reviewed the resident's note and discussed the case with the resident. I agree with the resident's findings and plan as documented. SUBJECTIVe: seen in am around 10 , was coughing, sat o2 down to 7-s. refused BIPAP . denied any pain OBJECTIVE: in distress , cough, sweaty. can't complete sentences Lungs: shallow short bbreaths. no crackles heard Plan : 34 y/o man with h/o HTN, migraines, and recent COVID diagnosis who presented with worsening SOB and was found to have acute resp failure 1- Acute hypoxic resp failure . due to COVID PNA . s/o taciliizumab, Remdisivir, , plasma, and Abx 2- Acute onset CP 3- New onset DM with uncontrolled blood sugar 4- H/o HTN 5- Hyperlipidemia Plan: - desturated with coughing spell. refused BIPAP. - evaluated by ICU - cont albuterol and symbicort - give codein for cough, has been refusing cough medications - cont eliquis BID - cont steroids - cont Insulin 40 BID. - cont lipitor 40 mg daily. - start PRN xanax for anxiety x 3 days - BIPAP HS
[2020-02-25] MEDS: ATORVASTATIN CA 40 MG TABLET (FP) PO SCH (22:20)
[2020-02-26] MEDS: INSULIN (LEVEMIR) 100 UNITS/ML UNITS SQ SCH ×2 (06:45→21:45)
[2020-02-26] MEDS: INSULIN SLIDING SCALE (NOVOLOG) 1 VIAL SQ SCH ×4 (06:45→21:42)
[2020-02-26 06:51] LABS: HEMATOCRIT 35.4 % (35.4-49); HEMOGLOBIN 11.3 GM/dL (11.7-16.9); MCH 24.4 pg (25.7-33.7); MEAN CELL VOLUME 76.3 fl (80-96); MEAN PLT VOLUME 9.2 fl (7.5-11.1); PLATELET COUNT 203 K/MM3 (134-434); RBC 4.64 M/mm3 (4.00-5.60); RDW 17.3 % (11.9-15.9); WHITE BLOOD COUNT 11.1 K/mm3 (4.0-10.0)
--- NOTE | 2020-02-26 06:56 | PN ---
Progress Note, Physician History of Present Illness: PULMONARY ALERT,ON 100%NRB,DYSPNEIC,O2 SAT 100% - Current Medication List Current Medications: Active Medications Acetaminophen (Tylenol -) 650 mg PO Q6H PRN PRN Reason: FEVER Last Admin: 02/23/20 10:34 Dose: 650 mg Documented by: Al Hydroxide/Mg Hydroxide (Mylanta Suspension -) 30 ml PO Q6HPO PRN PRN Reason: DYSPEPSIA Last Admin: 02/21/20 21:46 Dose: 30 ml Documented by: Albuterol Sulfate (Ventolin Hfa Inhaler -) 1 puff IH Q4H PRN PRN Reason: SHORT OF BREATH/WHEEZING Alprazolam (Xanax -) 0.5 mg PO Q12H PRN PRN Reason: ANXIETY Apixaban (Eliquis -) 5 mg PO BID [facility] Last Admin: 02/25/20 22:19 Dose: 5 mg Documented by: Ascorbic Acid (Vitamin C -) 500 mg PO BID [facility] Last Admin: 02/25/20 22:21 Dose: 500 mg Documented by: Aspirin (Asa -) 81 mg PO DAILY [facility] Last Admin: 02/25/20 10:26 Dose: 81 mg Documented by: Atorvastatin Calcium (Lipitor -) 40 mg PO HS [facility] Last Admin: 02/25/20 22:20 Dose: 40 mg Documented by: Budesonide/Formoterol Fumarate (Symbicort 80/4.5mcg -) 2 puff IH BID [facility] Last Admin: 02/25/20 22:21 Dose: 2 puff Documented by: Cholecalciferol (Vitamin D3 -) 2,000 unit PO DAILY [facility] Last Admin: 02/25/20 10:27 Dose: 2,000 unit Documented by: Clotrimazole (Lotrimin 1% Cream -) 1 applic TP BID [facility] Last Admin: 02/25/20 22:55 Dose: Not Given Documented by: Guaifenesin/Codeine Phosphate (Robitussin Ac -) 10 ml PO Q6H PRN PRN Reason: COUGH Last Admin: 02/25/20 10:27 Dose: 10 ml Documented by: Insulin Aspart (Novolog Vial Sliding Scale -) 1 vial SQ ACHS [facility]; Protocol Last Admin: 02/26/20 06:45 Dose: Not Given Documented by: Insulin Detemir (Levemir Vial) 40 units SQ ACBK [facility] Last Admin: 02/26/20 06:45 Dose: 40 unit Documented by: Insulin Detemir (Levemir Vial) 40 units SQ HS [facility] Last Admin: 02/25/20 22:19 Dose: 40 units Documented by: Melatonin (Melatonin) 5 mg PO HS PRN PRN Reason: INSOMNIA Non-Formulary Medication (Patient's Own Med) 2 each PO DAILY PRN PRN Reason: HEADACHE Ondansetron HCl (Zofran Injection) 4 mg IVPUSH Q6H PRN PRN Reason: NAUSEA Prednisone (Deltasone -) 15 mg PO DAILY [facility] Last Admin: 02/25/20 10:26 Dose: 15 mg Documented by: Zinc Sulfate (Orazinc -) 220 mg PO BID [facility] Last Admin: 02/25/20 22:21 Dose: 220 mg Documented by: - Objective Vital Signs: Vital Signs Temperature 98.6 F 02/26/20 06:00 Pulse Rate 90 02/26/20 06:00 Respiratory Rate 20 02/26/20 06:00 Blood Pressure 113/69 02/26/20 06:00 O2 Sat by Pulse Oximetry (%) 96 02/26/20 04:40 Constitutional: Yes: Well Nourished, Mild Distress, Obese Eyes: Yes: WNL HENT: Yes: WNL Neck: Yes: WNL Cardiovascular: Yes: Regular Rate and Rhythm, S1, S2 Respiratory: Yes: Diminished Gastrointestinal: Yes: Normal Bowel Sounds, Soft, Abdomen, Obese Extremities: Yes: WNL Edema: No Labs: INR, PTT INR 1.00 (0.83-1.09) 01/25/20 16:29 Fibrinogen 468.0 mg/dL (238-498) 02/25/20 13:05 Laboratory Tests 02/24/20 02/26/20 02/26/20 06:39 05:25 05:25 D-Dimer 2180 H Ferritin 688.9 H Alkaline Phosphatase 81 C-Reactive Protein 4.4 H Problem List - Problems (1) Acute hypoxemic respiratory failure Code(s): J96.01 - ACUTE RESPIRATORY FAILURE WITH HYPOXIA (2) COVID-19 Code(s): U07.1 - COVID POSITIVE (3) HTN (hypertension) Code(s): I10 - ESSENTIAL (PRIMARY) HYPERTENSION (4) REYNALDO (obstructive sleep apnea) Code(s): G47.33 - OBSTRUCTIVE SLEEP APNEA (ADULT) (PEDIATRIC) (5) Obesity Code(s): E66.9 - OBESITY, UNSPECIFIED Assessment/Plan A/P Acute Hypoxic Respiratory Failure COVID Pneumonia ARDS HTN DM - s/p remdesivir course - s/p tocilizumab infusion - steroid taper - empiric anticoagulation - completed empiric antibiotics - s/p convalescent plasma transfusion - trend ferritin, LDH, CRP - O2 to keep SpO2 >90% - BiPAP if pt complies - inhaled bronchodilators DR MCKEON
[2020-02-26 07:15] LABS: ALBUMIN 2.8 g/dl (3.4-5.0); BLOOD UREA NITROGEN 18.8 mg/dL (7-18); CALCIUM 8.4 mg/dL (8.5-10.1); CREATININE 0.8 mg/dL (0.55-1.3); POTASSIUM 3.8 mmol/L (3.5-5.1); TOT PROT 6.2 g/dl (6.4-8.2)
[2020-02-26] MEDS: predniSONE 10 MG TABLET (UD) PO SCH (09:55)
[2020-02-26] MEDS: ASPIRIN 81 MG CHEWABLE TABLETS PO SCH (09:55)
[2020-02-26] MEDS: CHOLECALCIFEROL (VIT D3) 1,000 UNIT (25 MCG) TABLET PO SCH (09:55)
[2020-02-26] MEDS: ZINC SULFATE 220 MG CAPSULE (FP) PO SCH ×2 (09:56→21:38)
[2020-02-26] MEDS: APIXABAN 5 MG TABLET PO SCH ×2 (09:56→21:37)
[2020-02-26] MEDS: BUDESONIDE/FORMETEROL FUMARATE 80/4.5 mcg INHALER IH SCH ×2 (09:57→21:38)
[2020-02-26] MEDS: ASCORBIC ACID 500 MG TABLET (FP) PO SCH ×2 (09:57→21:37)
[2020-02-26] MEDS: CLOTRIMAZOLE 1% CREAM 15 GM TUBE TP SCH ×2 (10:02→21:38)
--- NOTE | 2020-02-26 10:32 | PN ---
Progress Note (short form) - Note Progress Note: 34yo black man with morbid obesity, DM, hyperlipidemia, ?sleep apnea, recent COVID positive test, presents to the ED with shortness of breath and extreme fatigue. Recently on azithromycin course without relief. Saturating at 98% on room air, placed on 2L nasal cannula upon arrival with symptomatic relief. Patient has been progressively short of breath since diagnosis. Had strong, sharp left breast pain yesterday at rest, lasted about an hour. Pt says he had had a similar pain, though less severe and of shorter duration while in the ICU. Pt denies personal or family hx of heart disease; his father has DM. Pt never smoked; does not drink to excess. 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 No acute cardiac issues; SOB; on CPAP Vital Signs Temperature 98.0 F 02/26/20 09:44 Pulse Rate 103 H 02/26/20 09:48 Respiratory Rate 22 H 02/26/20 09:44 Blood Pressure 127/71 02/26/20 09:44 O2 Sat by Pulse Oximetry (%) 100 02/26/20 09:48 Labs: CBC, BMP 02/26/20 05:25 02/26/20 05:25 INR, PTT INR 1.00 (0.83-1.09) 01/25/20 16:29 Fibrinogen 468.0 mg/dL (238-498) 02/25/20 13:05 Active Medications Acetaminophen (Tylenol -) 650 mg PO Q6H PRN PRN Reason: FEVER Last Admin: 02/23/20 10:34 Dose: 650 mg Documented by: Al Hydroxide/Mg Hydroxide (Mylanta Suspension -) 30 ml PO Q6HPO PRN PRN Reason: DYSPEPSIA Last Admin: 02/21/20 21:46 Dose: 30 ml Documented by: Albuterol Sulfate (Ventolin Hfa Inhaler -) 1 puff IH Q4H PRN PRN Reason: SHORT OF BREATH/WHEEZING Alprazolam (Xanax -) 0.5 mg PO Q12H PRN PRN Reason: ANXIETY Apixaban (Eliquis -) 5 mg PO BID [facility] Last Admin: 02/26/20 09:56 Dose: 5 mg Documented by: Ascorbic Acid (Vitamin C -) 500 mg PO BID [facility] Last Admin: 02/26/20 09:57 Dose: 500 mg Documented by: Aspirin (Asa -) 81 mg PO DAILY [facility] Last Admin: 02/26/20 09:55 Dose: 81 mg Documented by: Atorvastatin Calcium (Lipitor -) 40 mg PO HS [facility] Last Admin: 02/25/20 22:20 Dose: 40 mg Documented by: Budesonide/Formoterol Fumarate (Symbicort 80/4.5mcg -) 2 puff IH BID [facility] Last Admin: 02/26/20 09:57 Dose: 2 puff Documented by: Cholecalciferol (Vitamin D3 -) 2,000 unit PO DAILY [facility] Last Admin: 02/26/20 09:55 Dose: 2,000 unit Documented by: Clotrimazole (Lotrimin 1% Cream -) 1 applic TP BID [facility] Last Admin: 02/26/20 10:02 Dose: Not Given Documented by: Guaifenesin/Codeine Phosphate (Robitussin Ac -) 10 ml PO Q6H PRN PRN Reason: COUGH Last Admin: 02/25/20 10:27 Dose: 10 ml Documented by: Insulin Aspart (Novolog Vial Sliding Scale -) 1 vial SQ [facility]; Protocol Last Admin: 02/26/20 06:45 Dose: Not Given Documented by: Insulin Detemir (Levemir Vial) 40 units SQ ACBK [facility] Last Admin: 02/26/20 06:45 Dose: 40 unit Documented by: Insulin Detemir (Levemir Vial) 40 units SQ HS [facility] Last Admin: 02/25/20 22:19 Dose: 40 units Documented by: Melatonin (Melatonin) 5 mg PO HS PRN PRN Reason: INSOMNIA Non-Formulary Medication (Patient's Own Med) 2 each PO DAILY PRN PRN Reason: HEADACHE Ondansetron HCl (Zofran Injection) 4 mg IVPUSH Q6H PRN PRN Reason: NAUSEA Prednisone (Deltasone -) 15 mg PO DAILY [facility] Last Admin: 02/26/20 09:55 Dose: 15 mg Documented by: Zinc Sulfate (Orazinc -) 220 mg PO BID [facility] Last Admin: 02/26/20 09:56 Dose: 220 mg Documented by: - ....Imaging Chest X-ray: Image Reviewed EKG: Image Reviewed Assessment/Plan COVID pneumonia ARDS Hyperlipidemia DM Obesity Atypical chest pain Plan: Cardiacwise sameL; TNI < 0.02 x 2 EKG:NSR; no acute changes F/u lipid profile, and keep LDL cholesterol < 70 mg;dL with statin, diet change. On apixaban. Start statin, and keep LDL cholesterol < 70 mg/dL BUN/Cr, electrolytes, daily weight, Is and Os. ECHO for LVEF, wall motion, valve status when feasible Consider starting ACEI for renal protection (DM) if BP allows. Plan on stress MIBI, due to multiple CAD risks, when stable. F/Y with Dr Rossi
--- NOTE | 2020-02-26 11:08 | PN ---
Physical Exam: SUBJECTIVE: Patient seen and examined at the bedside. Sill dyspneic and coughing. On NRB satting 100% this morning. Pt does no endorse CP or HERNANDEZ to me this morning. OBJECTIVE: Vital Signs Period Temp Pulse Resp BP Sys/Miner Pulse Ox Last 24 Hr 97.8 F-98.6 F 75-103 20-22 113-139/66-83 96-100 GENERAL: The patient is awake, alert, and fully oriented, in mild distress. HEAD: Normal with no signs of trauma. EYES: PERRL, extraocular movements intact, sclera anicteric, conjunctiva clear. No ptosis. NECK: Trachea midline, full range of motion, supple. LUNGS: NO ISOLATION STETHOSCOPE IN THE ROOM. HEART: NO ISOLATION STETHOSCOPE IN THE ROOM. ABDOMEN: Soft, nontender, obese, no guarding, no rebound, no hepatosplenomegaly, no masses. EXTREMITIES: 2+ pulses, warm, well-perfused, no edema. NEUROLOGICAL: Cranial nerves II through XII grossly intact. Normal speech, gait not observed. PSYCH: Normal mood, normal affect. SKIN: Warm, dry, normal turgor, no rashes or lesions noted Laboratory Results - last 24 hr 02/25/20 02/25/20 02/25/20 11:54 13:05 13:05 WBC RBC Hgb Hct MCV MCH MCHC RDW Plt Count MPV Fibrinogen 468.0 D-Dimer 1979 H Sodium Potassium Chloride Carbon Dioxide Anion Gap BUN Creatinine Est GFR (CKD-EPI)AfAm Est GFR (CKD-EPI)NonAf POC Glucometer 141 Random Glucose Calcium Ferritin 680.0 H Total Bilirubin AST ALT Alkaline Phosphatase LD Total 396 H C-Reactive Protein 2.8 H Total Protein Albumin 02/26/20 02/26/20 02/26/20 05:25 05:25 05:25 WBC 11.1 H RBC 4.64 Hgb 11.3 L Hct 35.4 MCV 76.3 L MCH 24.4 L MCHC 32.0 RDW 17.3 H Plt Count 203 MPV 9.2 Fibrinogen D-Dimer 2180 H Sodium 138 Potassium 3.8 Chloride 99 Carbon Dioxide 32 Anion Gap 6 L BUN 18.8 H Creatinine 0.8 Est GFR (CKD-EPI)AfAm 134.14 Est GFR (CKD-EPI)NonAf 115.74 POC Glucometer Random Glucose 121 H Calcium 8.4 L Ferritin 688.9 H Total Bilirubin 1.0 AST 12 L ALT 27 Alkaline Phosphatase 79 LD Total C-Reactive Protein 4.4 H Total Protein 6.2 L Albumin 2.8 L 02/26/20 05:37 WBC RBC Hgb Hct MCV MCH MCHC RDW Plt Count MPV Fibrinogen D-Dimer Sodium Potassium Chloride Carbon Dioxide Anion Gap BUN Creatinine Est GFR (CKD-EPI)AfAm Est GFR (CKD-EPI)NonAf POC Glucometer 111 Random Glucose Calcium Ferritin Total Bilirubin AST ALT Alkaline Phosphatase LD Total C-Reactive Protein Total Protein Albumin Active Medications Generic Name Dose Route Start Last Admin Trade Name Freq PRN Reason Stop Dose Admin Acetaminophen 650 mg 02/14/20 19:42 02/23/20 10:34 Tylenol - PO 650 mg Q6H PRN Administration FEVER Al Hydroxide/Mg Hydroxide 30 ml 02/21/20 17:49 02/21/20 21:46 Mylanta Suspension - PO 30 ml Q6HPO PRN Administration DYSPEPSIA Albuterol Sulfate 1 puff 02/14/20 19:42 Ventolin Hfa Inhaler - IH Q4H PRN SHORT OF BREATH/WHEEZING Alprazolam 0.5 mg 02/25/20 15:37 Xanax - PO Q12H PRN ANXIETY Apixaban 5 mg 02/14/20 22:00 02/26/20 09:56 Eliquis - PO 5 mg BID [facility] Administration Ascorbic Acid 500 mg 02/14/20 22:00 02/26/20 09:57 Vitamin C - PO 500 mg BID [facility] Administration Aspirin 81 mg 02/15/20 10:00 02/26/20 09:55 Asa - PO 81 mg DAILY [facility] Administration Atorvastatin Calcium 40 mg 02/22/20 22:00 02/25/20 22:20 Lipitor - PO 40 mg HS [facility] Administration Budesonide/Formoterol Fumarate 2 puff 02/24/20 22:00 02/26/20 09:57 Symbicort 80/4.5mcg - IH 2 puff BID [facility] Administration Cholecalciferol 2,000 unit 02/15/20 11:53 02/26/20 09:55 Vitamin D3 - PO 2,000 unit DAILY [facility] Administration Clotrimazole 1 applic 02/14/20 22:00 02/26/20 10:02 Lotrimin 1% Cream - TP Not Given BID [facility] Guaifenesin/Codeine Phosphate 10 ml 02/14/20 19:42 02/25/20 10:27 Robitussin Ac - PO 10 ml Q6H PRN Administration COUGH Insulin Aspart 1 vial 02/14/20 22:00 02/26/20 06:45 Novolog Vial Sliding Scale - SQ Not Given ACHS [facility] Protocol Insulin Detemir 40 units 02/17/20 07:00 02/26/20 06:45 Levemir Vial SQ 40 unit ACBK [facility] Administration Insulin Detemir 40 units 02/21/20 14:11 02/25/20 22:19 Levemir Vial SQ 40 units HS [facility] Administration Melatonin 5 mg 02/14/20 19:42 Melatonin PO HS PRN INSOMNIA Non-Formulary Medication 2 each 02/22/20 13:58 Patient's Own Med PO DAILY PRN HEADACHE Ondansetron HCl 4 mg 02/14/20 19:42 Zofran Injection IVPUSH Q6H PRN NAUSEA Prednisone 15 mg 02/24/20 13:55 02/26/20 09:55 Deltasone - PO 15 mg DAILY [facility] Administration Zinc Sulfate 220 mg 02/14/20 22:00 02/26/20 09:56 Orazinc - PO 220 mg BID [facility] Administration ASSESSMENT/PLAN: 34 y/o male with HTN (not on meds) and newly diagnosed DM on admission, who presents with 3-4 days of increasing dyspnea and diarrhea. Two days ago he began having chest pain with coughing. 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 #COVID 19 Pneumonia - pt satting well n NRB this morning, still dyspneic - no fever spikes. - adjust between NRB and BiPAP (night) as needed to keep O2 >90 - s/p abx X 12 days - switched to 15mg PO daily on taper - inflammatory markers trend daily. - vitamin C/vitamin D,zinc - full AC 5 BID eliquis - ID following- s/p convalescent plasma 01/25, s/p tocolizumab 01/29, remdisivir dose 01/30 given - prognosis guarded not much more to do other than watchful waiting at this time - echo when stable # Atypical Chest Pain - TNI < 0.02 x 2 - EKG:NSR; no acute changes - lipitor 40 HS - On apixaban - ECHO for LVEF, wall motion, valve status when feasible - Consider starting ACEI for renal protection (DM) if BP allows. - Plan on stress MIBI, due to multiple CAD risks, when stable. F/Y with Dr Rossi # Headache- pt endorsing HERNANDEZ to nurse, demanding excerin however concern for bleed as pt is also on apixaban. Pt refusing tylenol - Fioricet q6 PRN for HERNANDEZ #Newly diagnosed DM - currently 126 - A1C 10.5 - BGMs, c/w Levemir 40 in AM and HS - goal BG 140-180, on steroids likely worsening it #Newly diagnosed HLD - total chol 204,LDL 122, HDL 62 - given RF ( obesity, DM, HTN), will start lipitor 40 HS #DVT Ppx Eliquis 5mg BID FEN PO fluids monitor labs diabetic diet dispo: Tele monitoring Visit type - Emergency Visit Emergency Visit: Yes ED Registration Date: 01/25/20 Care time: The patient presented to the Emergency Department on the above date and was hospitalized for further evaluation of their emergent condition. - New Patient This patient is new to me today: No - Critical Care Critical Care patient: No - Discharge Referral Referred to [facility] No ATTENDING PHYSICIAN STATEMENT I saw and evaluated the patient. I reviewed the resident's note and discussed the case with the resident. I agree with the resident's findings and plan as documented. SUBJECTIVE: OBJECTIVE: ASSESSMENT AND PLAN:
[2020-02-26] MEDS ORDERED: ACETAMINOPHEN 1000 MG/100 ML VIAL (NON FORMULARY) IVPB ONE (11:18)
[2020-02-26] MEDS ORDERED: ACETAMINOPHEN/CAFFEINE/BUTALBITAL 1 TAB PO PRN (13:56)
--- NOTE | 2020-02-26 17:00 | PN ---
Teaching Attending Note Name of Resident: Beth Hooks ATTENDING PHYSICIAN STATEMENT I saw and evaluated the patient. I reviewed the resident's note and discussed the case with the resident. I agree with the resident's findings and plan as documented. SUBJECTIVE: feels better today OBJECTIVE: NAD , flossing his teeth. occasional cough No isolation stethoscope available Plan : 34 y/o man with h/o HTN, migraines, and recent COVID diagnosis who presented with worsening SOB and was found to have acute resp failure 1- Acute hypoxic resp failure . due to COVID PNA . s/o taciliizumab, Remdisivir, , plasma, and Abx 2- Acute onset CP : resolved 3- New onset DM with uncontrolled blood sugar 4- H/o HTN 5- Hyperlipidemia Plan: - cont NRB and BIPAP at night - cont AC and steroids - cont albuterol and symbicort - cont Insulin 40 BID. - cont lipitor 40 mg daily. - PRN xanax for anxiety x 3 days - if patient is agreeable with ACEI/ARB, will start - Stress test when stable . - dc tele - dc excedrine due to bleeding risk with eliquis. he takes few times a day ( aspirin component ) .add fioricet instead [facility]LOC
[2020-02-26] MEDS: ATORVASTATIN CA 40 MG TABLET (FP) PO SCH (21:37)
[2020-02-27] MEDS: INSULIN SLIDING SCALE (NOVOLOG) 1 VIAL SQ SCH ×4 (06:27→21:34)
[2020-02-27] MEDS: INSULIN (LEVEMIR) 100 UNITS/ML UNITS SQ SCH ×2 (06:32→21:34)
[2020-02-27 06:53] LABS: HEMOGLOBIN 11.5 GM/dL (11.7-16.9); MCH 24.3 pg (25.7-33.7); MCHC 31.9 g/dl (32.0-35.9); MEAN CELL VOLUME 76.2 fl (80-96); MEAN PLT VOLUME 8.9 fl (7.5-11.1); PLATELET COUNT 231 K/MM3 (134-434); RBC 4.73 M/mm3 (4.00-5.60); WHITE BLOOD COUNT 10.3 K/mm3 (4.0-10.0)
[2020-02-27 07:19] LABS: ALBUMIN 2.9 g/dl (3.4-5.0); BILIRUBIN,TOTAL 0.8 mg/dL (0.2-1); BLOOD UREA NITROGEN 17.3 mg/dL (7-18); CALCIUM 8.7 mg/dL (8.5-10.1); CREATININE 0.8 mg/dL (0.55-1.3); POTASSIUM 3.9 mmol/L (3.5-5.1); TOT PROT 6.6 g/dl (6.4-8.2)
--- NOTE | 2020-02-27 07:31 | PN ---
Progress Note, Physician History of Present Illness: pulmonary alert,tachypneic,on 100%nrb,o2 sat 97% - Current Medication List Current Medications: Active Medications Acetaminophen (Tylenol -) 650 mg PO Q6H PRN PRN Reason: FEVER Last Admin: 02/23/20 10:34 Dose: 650 mg Documented by: Acetaminophen/Butalbital/Caffeine (Fioricet -) 1 tablet PO Q6H PRN PRN Reason: HEADACHE Al Hydroxide/Mg Hydroxide (Mylanta Suspension -) 30 ml PO Q6HPO PRN PRN Reason: DYSPEPSIA Last Admin: 02/21/20 21:46 Dose: 30 ml Documented by: Albuterol Sulfate (Ventolin Hfa Inhaler -) 1 puff IH Q4H PRN PRN Reason: SHORT OF BREATH/WHEEZING Alprazolam (Xanax -) 0.5 mg PO Q12H PRN PRN Reason: ANXIETY Apixaban (Eliquis -) 5 mg PO BID [facility] Last Admin: 02/26/20 21:37 Dose: 5 mg Documented by: Ascorbic Acid (Vitamin C -) 500 mg PO BID [facility] Last Admin: 02/26/20 21:37 Dose: 500 mg Documented by: Aspirin (Asa -) 81 mg PO DAILY [facility] Last Admin: 02/26/20 09:55 Dose: 81 mg Documented by: Atorvastatin Calcium (Lipitor -) 40 mg PO HS [facility] Last Admin: 02/26/20 21:37 Dose: 40 mg Documented by: Budesonide/Formoterol Fumarate (Symbicort 80/4.5mcg -) 2 puff IH BID [facility] Last Admin: 02/26/20 21:38 Dose: 2 puff Documented by: Cholecalciferol (Vitamin D3 -) 2,000 unit PO DAILY [facility] Last Admin: 02/26/20 09:55 Dose: 2,000 unit Documented by: Clotrimazole (Lotrimin 1% Cream -) 1 applic TP BID [facility] Last Admin: 02/26/20 21:38 Dose: 1 applic Documented by: Guaifenesin/Codeine Phosphate (Robitussin Ac -) 10 ml PO Q6H PRN PRN Reason: COUGH Last Admin: 02/25/20 10:27 Dose: 10 ml Documented by: Insulin Aspart (Novolog Vial Sliding Scale -) 1 vial SQ [facility]; Protocol Last Admin: 02/27/20 06:27 Dose: Not Given Documented by: Insulin Detemir (Levemir Vial) 40 units SQ ACBK [facility] Last Admin: 02/27/20 06:32 Dose: 40 unit Documented by: Insulin Detemir (Levemir Vial) 40 units SQ HS [facility] Last Admin: 02/26/20 21:45 Dose: 40 units Documented by: Melatonin (Melatonin) 5 mg PO HS PRN PRN Reason: INSOMNIA Non-Formulary Medication (Patient's Own Med) 2 each PO DAILY PRN PRN Reason: HEADACHE Ondansetron HCl (Zofran Injection) 4 mg IVPUSH Q6H PRN PRN Reason: NAUSEA Prednisone (Deltasone -) 15 mg PO DAILY [facility] Last Admin: 02/26/20 09:55 Dose: 15 mg Documented by: Zinc Sulfate (Orazinc -) 220 mg PO BID [facility] Last Admin: 02/26/20 21:38 Dose: 220 mg Documented by: - Objective Vital Signs: Vital Signs Temperature 98.0 F 02/27/20 06:00 Pulse Rate 81 02/27/20 06:00 Respiratory Rate 22 H 02/27/20 06:00 Blood Pressure 127/71 02/27/20 06:00 O2 Sat by Pulse Oximetry (%) 100 02/27/20 01:30 Constitutional: Yes: Mild Distress, Obese Eyes: Yes: WNL HENT: Yes: WNL Neck: Yes: WNL Cardiovascular: Yes: Regular Rate and Rhythm, S1, S2 Respiratory: Yes: Diminished Gastrointestinal: Yes: Normal Bowel Sounds, Soft, Abdomen, Obese Extremities: Yes: WNL Edema: No Labs: CBC, BMP 02/27/20 05:40 02/27/20 05:40 INR, PTT INR 1.00 (0.83-1.09) 01/25/20 16:29 Fibrinogen 468.0 mg/dL (238-498) 02/25/20 13:05 Laboratory Tests 02/27/20 02/27/20 05:40 05:40 D-Dimer 1615 H Ferritin 704.0 H LD Total 434 H C-Reactive Protein 4.6 H Problem List - Problems (1) Acute hypoxemic respiratory failure Code(s): J96.01 - ACUTE RESPIRATORY FAILURE WITH HYPOXIA (2) COVID-19 Code(s): U07.1 - COVID POSITIVE (3) HTN (hypertension) Code(s): I10 - ESSENTIAL (PRIMARY) HYPERTENSION (4) REYNALDO (obstructive sleep apnea) Code(s): G47.33 - OBSTRUCTIVE SLEEP APNEA (ADULT) (PEDIATRIC) (5) Obesity Code(s): E66.9 - OBESITY, UNSPECIFIED Assessment/Plan A/P Acute Hypoxic Respiratory Failure COVID Pneumonia ARDS HTN DM - s/p remdesivir course - s/p tocilizumab infusion - steroid taper - empiric anticoagulation - completed empiric antibiotics - s/p convalescent plasma transfusion - trend ferritin, LDH, CRP - O2 to keep SpO2 >90% - BiPAP if pt complies - ac - inhaled bronchodilators DR MCKEON
[2020-02-27] MEDS: APIXABAN 5 MG TABLET PO SCH ×2 (10:47→21:34)
[2020-02-27] MEDS: predniSONE 10 MG TABLET (UD) PO SCH (10:47)
[2020-02-27] MEDS: ASPIRIN 81 MG CHEWABLE TABLETS PO SCH (10:47)
[2020-02-27] MEDS: BUDESONIDE/FORMETEROL FUMARATE 80/4.5 mcg INHALER IH SCH ×2 (10:48→21:35)
[2020-02-27] MEDS: ZINC SULFATE 220 MG CAPSULE (FP) PO SCH ×2 (10:48→21:35)
[2020-02-27] MEDS: CHOLECALCIFEROL (VIT D3) 1,000 UNIT (25 MCG) TABLET PO SCH (10:49)
[2020-02-27] MEDS: ASCORBIC ACID 500 MG TABLET (FP) PO SCH ×2 (10:49→21:34)
[2020-02-27] MEDS: CLOTRIMAZOLE 1% CREAM 15 GM TUBE TP SCH ×2 (11:00→21:35)
[2020-02-27] MEDS: guaiFENesin/CODEINE 10 ML UNIT-DOSE CUPS PO PRN (11:00)
--- NOTE | 2020-02-27 15:40 | PN ---
Progress Note, Physician History of Present Illness: 34yo male with recent COVID positive test presents to the ED with shortness of breath and extreme fatigue. Recently on azithromycin course without relief. Saturating at 98% on room air, placed on 2L nasal cannula upon arrival with symptomatic relief. Patient has been progressively short of breath since diagnosis. - Current Medication List Current Medications: Active Medications Acetaminophen (Tylenol -) 650 mg PO Q6H PRN PRN Reason: FEVER Last Admin: 02/23/20 10:34 Dose: 650 mg Documented by: Acetaminophen/Butalbital/Caffeine (Fioricet -) 1 tablet PO Q6H PRN PRN Reason: HEADACHE Al Hydroxide/Mg Hydroxide (Mylanta Suspension -) 30 ml PO Q6HPO PRN PRN Reason: DYSPEPSIA Last Admin: 02/21/20 21:46 Dose: 30 ml Documented by: Albuterol Sulfate (Ventolin Hfa Inhaler -) 1 puff IH Q4H PRN PRN Reason: SHORT OF BREATH/WHEEZING Alprazolam (Xanax -) 0.5 mg PO Q12H PRN PRN Reason: ANXIETY Apixaban (Eliquis -) 5 mg PO BID [facility] Last Admin: 02/27/20 10:47 Dose: 5 mg Documented by: Ascorbic Acid (Vitamin C -) 500 mg PO BID [facility] Last Admin: 02/27/20 10:49 Dose: 500 mg Documented by: Aspirin (Asa -) 81 mg PO DAILY [facility] Last Admin: 02/27/20 10:47 Dose: 81 mg Documented by: Atorvastatin Calcium (Lipitor -) 40 mg PO HS [facility] Last Admin: 02/26/20 21:37 Dose: 40 mg Documented by: Budesonide/Formoterol Fumarate (Symbicort 80/4.5mcg -) 2 puff IH BID [facility] Last Admin: 02/27/20 10:48 Dose: 2 puff Documented by: Cholecalciferol (Vitamin D3 -) 2,000 unit PO DAILY [facility] Last Admin: 02/27/20 10:49 Dose: 2,000 unit Documented by: Clotrimazole (Lotrimin 1% Cream -) 1 applic TP BID [facility] Last Admin: 02/27/20 11:00 Dose: Not Given Documented by: Guaifenesin/Codeine Phosphate (Robitussin Ac -) 10 ml PO Q6H PRN PRN Reason: COUGH Last Admin: 02/27/20 11:00 Dose: 10 ml Documented by: Insulin Aspart (Novolog Vial Sliding Scale -) 1 vial SQ ACHS [facility]; Protocol Last Admin: 02/27/20 11:26 Dose: 2 units Documented by: Insulin Detemir (Levemir Vial) 40 units SQ ACBK [facility] Last Admin: 02/27/20 06:32 Dose: 40 unit Documented by: Insulin Detemir (Levemir Vial) 40 units SQ HS [facility] Last Admin: 02/26/20 21:45 Dose: 40 units Documented by: Melatonin (Melatonin) 5 mg PO HS PRN PRN Reason: INSOMNIA Ondansetron HCl (Zofran Injection) 4 mg IVPUSH Q6H PRN PRN Reason: NAUSEA Prednisone (Deltasone -) 10 mg PO DAILY [facility] Last Admin: 02/27/20 10:47 Dose: 10 mg Documented by: Zinc Sulfate (Orazinc -) 220 mg PO BID [facility] Last Admin: 02/27/20 10:48 Dose: 220 mg Documented by: - Objective Vital Signs: Vital Signs Temperature 98.1 F 02/27/20 08:41 Pulse Rate 83 02/27/20 08:41 Respiratory Rate 22 H 02/27/20 08:41 Blood Pressure 103/67 02/27/20 08:41 O2 Sat by Pulse Oximetry (%) 97 02/27/20 09:00 Eyes: Yes: WNL, Conjunctiva Clear, EOM Intact HENT: Yes: WNL, Atraumatic, Normocephalic Neck: Yes: WNL, Supple, Trachea Midline Cardiovascular: Yes: WNL, Regular Rate and Rhythm Respiratory: Yes: Diminished Gastrointestinal: Yes: WNL, Normal Bowel Sounds Genitourinary: Yes: WNL Musculoskeletal: Yes: WNL Extremities: Yes: WNL Edema: No Integumentary: Yes: WNL Neurological: Yes: WNL, Alert, Oriented ...Motor Strength: WNL Psychiatric: Yes: WNL Labs: CBC, BMP 02/27/20 05:40 02/27/20 05:40 INR, PTT INR 1.00 (0.83-1.09) 01/25/20 16:29 Fibrinogen 468.0 mg/dL (238-498) 02/25/20 13:05 Problem List - Problems (1) Acute hypoxemic respiratory failure Code(s): J96.01 - ACUTE RESPIRATORY FAILURE WITH HYPOXIA (2) COVID-19 Code(s): U07.1 - COVID POSITIVE (3) HTN (hypertension) Code(s): I10 - ESSENTIAL (PRIMARY) HYPERTENSION (4) REYNALDO (obstructive sleep apnea) Code(s): G47.33 - OBSTRUCTIVE SLEEP APNEA (ADULT) (PEDIATRIC) (5) Obesity Code(s): E66.9 - OBESITY, UNSPECIFIED (6) Bronchitis Code(s): J40 - BRONCHITIS, NOT SPECIFIED ACUTE OR CHRONIC (7) Cough Code(s): R05 - COUGH Assessment/Plan COVID pneumonia ARDS Hyperlipidemia DM Obesity Atypical chest pain Plan: Same as below; TNI < 0.02 x 2 EKG:NSR; no acute changes F/u lipid profile, and keep LDL cholesterol < 70 mg;dL with statin, diet change. On apixaban. Start statin, and keep LDL cholesterol < 70 mg/dL BUN/Cr, electrolytes, daily weight, Is and Os. ECHO for LVEF, wall motion, valve status when feasible Consider starting ACEI for renal protection (DM) if BP allows. Plan on stress MIBI, due to multiple CAD risks, when stable.
--- NOTE | 2020-02-27 17:10 | PN ---
Physical Exam: SUBJECTIVE: Patient seen and examined. afebrile but cont to be SOB, tachypnic and coughing. unable to decrease NRB to 10L as pt symptoms worsens each time OBJECTIVE: Vital Signs Period Temp Pulse Resp BP Sys/Miner Pulse Ox Last 24 Hr 98.0 F-98.9 F 81-106 22-22 103-128/67-78 97-100 GENERAL: The patient is awake, alert, and fully oriented, in mild distress. HEAD: Normal with no signs of trauma. EYES: PERRL, extraocular movements intact, sclera anicteric, conjunctiva clear. No ptosis. NECK: Trachea midline, full range of motion, supple. LUNGS: NO ISOLATION STETHOSCOPE IN THE ROOM. HEART: NO ISOLATION STETHOSCOPE IN THE ROOM. ABDOMEN: Soft, nontender, obese, no guarding, no rebound, no hepatosplenomegaly, no masses. EXTREMITIES: 2+ pulses, warm, well-perfused, no edema. NEUROLOGICAL: Cranial nerves II through XII grossly intact. Normal speech, gait not observed. PSYCH: Normal mood, normal affect. SKIN: Warm, dry, normal turgor, no rashes or lesions noted Laboratory Results - last 24 hr 02/25/20 02/26/20 02/27/20 13:05 21:41 05:40 WBC RBC Hgb Hct MCV MCH MCHC RDW Plt Count MPV D-Dimer Sodium 137 Potassium 3.9 Chloride 100 Carbon Dioxide 30 Anion Gap 7 L BUN 17.3 Creatinine 0.8 Est GFR (CKD-EPI)AfAm 134.14 Est GFR (CKD-EPI)NonAf 115.74 POC Glucometer 252 Random Glucose 149 H Calcium 8.7 Ferritin 704.0 H Total Bilirubin 0.8 AST 14 L ALT 30 Alkaline Phosphatase 88 LD Total 434 H C-Reactive Protein 4.6 H Total Protein 6.6 Albumin 2.9 L Procalcitonin 0.11 H 02/27/20 02/27/20 02/27/20 05:40 05:40 11:18 WBC 10.3 H RBC 4.73 Hgb 11.5 L Hct 36.0 MCV 76.2 L MCH 24.3 L MCHC 31.9 L RDW 17.0 H Plt Count 231 MPV 8.9 D-Dimer 1615 H Sodium Potassium Chloride Carbon Dioxide Anion Gap BUN Creatinine Est GFR (CKD-EPI)AfAm Est GFR (CKD-EPI)NonAf POC Glucometer 170 Random Glucose Calcium Ferritin Total Bilirubin AST ALT Alkaline Phosphatase LD Total C-Reactive Protein Total Protein Albumin Procalcitonin Active Medications Generic Name Dose Route Start Last Admin Trade Name Freq PRN Reason Stop Dose Admin Acetaminophen 650 mg 02/14/20 19:42 02/23/20 10:34 Tylenol - PO 650 mg Q6H PRN Administration FEVER Acetaminophen/Butalbital/Caffeine 1 tablet 02/26/20 13:56 Fioricet - PO Q6H PRN HEADACHE Al Hydroxide/Mg Hydroxide 30 ml 02/21/20 17:49 02/21/20 21:46 Mylanta Suspension - PO 30 ml Q6HPO PRN Administration DYSPEPSIA Albuterol Sulfate 1 puff 02/14/20 19:42 Ventolin Hfa Inhaler - IH Q4H PRN SHORT OF BREATH/WHEEZING Alprazolam 0.5 mg 02/25/20 15:37 Xanax - PO Q12H PRN ANXIETY Apixaban 5 mg 02/14/20 22:00 02/27/20 10:47 Eliquis - PO 5 mg BID [facility] Administration Ascorbic Acid 500 mg 02/14/20 22:00 02/27/20 10:49 Vitamin C - PO 500 mg BID [facility] Administration Aspirin 81 mg 02/15/20 10:00 02/27/20 10:47 Asa - PO 81 mg DAILY [facility] Administration Atorvastatin Calcium 40 mg 02/22/20 22:00 02/26/20 21:37 Lipitor - PO 40 mg HS [facility] Administration Budesonide/Formoterol Fumarate 2 puff 02/24/20 22:00 02/27/20 10:48 Symbicort 80/4.5mcg - IH 2 puff BID [facility] Administration Cholecalciferol 2,000 unit 02/15/20 11:53 02/27/20 10:49 Vitamin D3 - PO 2,000 unit DAILY [facility] Administration Clotrimazole 1 applic 02/14/20 22:00 02/27/20 11:00 Lotrimin 1% Cream - TP Not Given BID SARAH Guaifenesin/Codeine Phosphate 10 ml 02/14/20 19:42 02/27/20 11:00 Robitussin Ac - PO 10 ml Q6H PRN Administration COUGH Insulin Aspart 1 vial 02/14/20 22:00 06/01/20 11:26 Novolog Vial Sliding Scale - SQ 2 units ACHS [facility] Administration Protocol Insulin Detemir 40 units 02/17/20 07:00 02/27/20 06:32 Levemir Vial SQ 40 unit ACBK [facility] Administration Insulin Detemir 40 units 02/21/20 14:11 02/26/20 21:45 Levemir Vial SQ 40 units HS [facility] Administration Melatonin 5 mg 02/14/20 19:42 Melatonin PO HS PRN INSOMNIA Ondansetron HCl 4 mg 02/14/20 19:42 Zofran Injection IVPUSH Q6H PRN NAUSEA Prednisone 10 mg 02/27/20 10:00 02/27/20 10:47 Deltasone - PO 10 mg DAILY [facility] Administration Zinc Sulfate 220 mg 02/14/20 22:00 02/27/20 10:48 Orazinc - PO 220 mg BID [facility] Administration ASSESSMENT/PLAN: 34 y/o male with HTN (not on meds) and newly diagnosed DM on admission, who presents with 3-4 days of increasing dyspnea and diarrhea. Two days ago he began having chest pain with coughing. 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 #COVID 19 Pneumonia - pt satting well n NRB this morning, still dyspneic - no fever spikes. - adjust between NRB and BiPAP (night) as needed to keep O2 >90 - s/p abx - prednisone 10 mg PO daily on taper - inflammatory markers trend daily. - vitamin C/vitamin D,zinc - full AC 5 BID eliquis - ID following- s/p convalescent plasma 01/25, s/p tocolizumab 01/29, remdisivir dose 01/30 given - prognosis guarded not much more to do other than watchful waiting at this time # Atypical Chest Pain - TNI < 0.02 x 2 - EKG:NSR; no acute changes - lipitor 40 HS - On apixaban - ECHO for LVEF, wall motion, valve status when feasible - declining ACEis due to potential side effects - Plan on stress MIBI, due to multiple CAD risks, when stable. F/u with Dr Rossi - cardio recs appreciated # Headache- pt endorsing HERNANDEZ to nurse, demanding excerin however concern for bleed as pt is also on apixaban. Pt refusing tylenol - Fioricet q6 PRN for HERNANDEZ #Newly diagnosed DM - currently 149 - A1C 10.5 - BGMs, c/w Levemir 40 in AM and HS - goal BG 140-180, on steroids likely worsening it #Newly diagnosed HLD - total chol 204,LDL 122, HDL 62 - given RF ( obesity, DM, HTN), started lipitor 40 HS #DVT Ppx Eliquis 5mg BID FEN PO fluids monitor labs diabetic diet dispo: Tele monitoring Visit type - Emergency Visit Emergency Visit: Yes ED Registration Date: 01/25/20 Care time: The patient presented to the Emergency Department on the above date and was hospitalized for further evaluation of their emergent condition. - New Patient This patient is new to me today: No - Critical Care Critical Care patient: No ATTENDING PHYSICIAN STATEMENT I saw and evaluated the patient. I reviewed the resident's note and discussed the case with the resident. I agree with the resident's findings and plan as documented. SUBJECTIVE: OBJECTIVE: ASSESSMENT AND PLAN:
--- NOTE | 2020-02-27 17:27 | PN ---
Teaching Attending Note Name of Resident: Nichole Hassan ATTENDING PHYSICIAN STATEMENT I saw and evaluated the patient. I reviewed the resident's note and discussed the case with the resident. I agree with the resident's findings and plan as documented. SUBJECTIVE: cont to have SOB OBJECTIVE: NAD No edema on legs occasional cough no isolation stethoscope Plan : 34 y/o man with h/o HTN, migraines, and recent COVID diagnosis who presented with worsening SOB and was found to have acute resp failure 1- Acute hypoxic resp failure . due to COVID PNA . s/o taciliizumab, Remdisivir, , plasma, and Abx 2- Acute onset CP : resolved 3- New onset DM with uncontrolled blood sugar 4- H/o HTN 5- Hyperlipidemia Plan: - cont NRB and BIPAP at night. - cont AC . steroids taper - cont albuterol and symbicort - cont Insulin 40 BID. - cont lipitor 40 mg daily. - PRN xanax for anxiety x 3 days - iBP on lower side, hold off starting ACEI - Stress test when stable . maybe as out pt due to resp status - off excedrine due to bleeding risk with eliquis. he takes few times a day HLOC
[2020-02-27] MEDS: ATORVASTATIN CA 40 MG TABLET (FP) PO SCH (21:34)
[2020-02-28] MEDS: INSULIN SLIDING SCALE (NOVOLOG) 1 VIAL SQ SCH ×4 (06:34→21:42)
[2020-02-28] MEDS: INSULIN (LEVEMIR) 100 UNITS/ML UNITS SQ SCH ×2 (06:34→21:44)
--- NOTE | 2020-02-28 07:28 | PN ---
Progress Note, Physician History of Present Illness: pulmonary alert,no change dyspneic on 100% nrb,o2 sat 99% - Current Medication List Current Medications: Active Medications Acetaminophen (Tylenol -) 650 mg PO Q6H PRN PRN Reason: FEVER Last Admin: 02/23/20 10:34 Dose: 650 mg Documented by: Acetaminophen/Butalbital/Caffeine (Fioricet -) 1 tablet PO Q6H PRN PRN Reason: HEADACHE Al Hydroxide/Mg Hydroxide (Mylanta Suspension -) 30 ml PO Q6HPO PRN PRN Reason: DYSPEPSIA Last Admin: 02/21/20 21:46 Dose: 30 ml Documented by: Albuterol Sulfate (Ventolin Hfa Inhaler -) 1 puff IH Q4H PRN PRN Reason: SHORT OF BREATH/WHEEZING Alprazolam (Xanax -) 0.5 mg PO Q12H PRN PRN Reason: ANXIETY Apixaban (Eliquis -) 5 mg PO BID [facility] Last Admin: 02/27/20 21:34 Dose: 5 mg Documented by: Ascorbic Acid (Vitamin C -) 500 mg PO BID [facility] Last Admin: 02/27/20 21:34 Dose: 500 mg Documented by: Aspirin (Asa -) 81 mg PO DAILY [facility] Last Admin: 02/27/20 10:47 Dose: 81 mg Documented by: Atorvastatin Calcium (Lipitor -) 40 mg PO HS [facility] Last Admin: 02/27/20 21:34 Dose: 40 mg Documented by: Budesonide/Formoterol Fumarate (Symbicort 80/4.5mcg -) 2 puff IH BID [facility] Last Admin: 02/27/20 21:35 Dose: 2 puff Documented by: Cholecalciferol (Vitamin D3 -) 2,000 unit PO DAILY [facility] Last Admin: 02/27/20 10:49 Dose: 2,000 unit Documented by: Clotrimazole (Lotrimin 1% Cream -) 1 applic TP BID [facility] Last Admin: 02/27/20 21:35 Dose: Not Given Documented by: Guaifenesin/Codeine Phosphate (Robitussin Ac -) 10 ml PO Q6H PRN PRN Reason: COUGH Last Admin: 02/27/20 11:00 Dose: 10 ml Documented by: Insulin Aspart (Novolog Vial Sliding Scale -) 1 vial SQ [facility]; Protocol Last Admin: 02/28/20 06:34 Dose: Not Given Documented by: Insulin Detemir (Levemir Vial) 40 units SQ ACBK [facility] Last Admin: 02/28/20 06:34 Dose: 40 unit Documented by: Insulin Detemir (Levemir Vial) 40 units SQ HS [facility] Last Admin: 02/27/20 21:34 Dose: 40 units Documented by: Melatonin (Melatonin) 5 mg PO HS PRN PRN Reason: INSOMNIA Ondansetron HCl (Zofran Injection) 4 mg IVPUSH Q6H PRN PRN Reason: NAUSEA Prednisone (Deltasone -) 10 mg PO DAILY [facility] Last Admin: 02/27/20 10:47 Dose: 10 mg Documented by: Zinc Sulfate (Orazinc -) 220 mg PO BID [facility] Last Admin: 02/27/20 21:35 Dose: 220 mg Documented by: - Objective Vital Signs: Vital Signs Temperature 97.8 F 02/28/20 05:00 Pulse Rate 87 02/28/20 05:00 Respiratory Rate 22 H 02/28/20 05:00 Blood Pressure 108/57 L 02/28/20 05:00 O2 Sat by Pulse Oximetry (%) 100 02/27/20 21:00 Constitutional: Yes: Mild Distress, Obese Eyes: Yes: WNL HENT: Yes: WNL Neck: Yes: WNL Cardiovascular: Yes: Regular Rate and Rhythm, S1, S2 Respiratory: Yes: Diminished Extremities: Yes: WNL Edema: No Labs: INR, PTT INR 1.00 (0.83-1.09) 01/25/20 16:29 Fibrinogen 468.0 mg/dL (238-498) 02/25/20 13:05 Problem List - Problems (1) Acute hypoxemic respiratory failure Code(s): J96.01 - ACUTE RESPIRATORY FAILURE WITH HYPOXIA (2) COVID-19 Code(s): U07.1 - COVID POSITIVE (3) HTN (hypertension) Code(s): I10 - ESSENTIAL (PRIMARY) HYPERTENSION (4) REYNALDO (obstructive sleep apnea) Code(s): G47.33 - OBSTRUCTIVE SLEEP APNEA (ADULT) (PEDIATRIC) (5) Obesity Code(s): E66.9 - OBESITY, UNSPECIFIED Assessment/Plan A/P Acute Hypoxic Respiratory Failure COVID Pneumonia ARDS HTN DM - s/p remdesivir course - s/p tocilizumab infusion - prednisone - empiric anticoagulation - completed empiric antibiotics - s/p convalescent plasma transfusion - trend ferritin, LDH, CRP - O2 to keep SpO2 >90% - BiPAP if pt complies - ac - inhaled bronchodilators DR MCKEON
[2020-02-28 07:42] LABS: BASO % 0.6 % (0-2.0); EOS % 8.9 % (0-4.5); HEMATOCRIT 32.2 % (35.4-49); HEMOGLOBIN 10.3 GM/dL (11.7-16.9); LYMPH % 36.6 % (8-40); MCH 24.5 pg (25.7-33.7); MCHC 32.1 g/dl (32.0-35.9); MEAN CELL VOLUME 76.3 fl (80-96); MEAN PLT VOLUME 8.8 fl (7.5-11.1); MONO % 9.8 % (3.8-10.2); NEUT % 44.1 % (42.8-82.8); PLATELET COUNT 221 K/MM3 (134-434); RBC 4.22 M/mm3 (4.00-5.60); RDW 17.2 % (11.9-15.9); WHITE BLOOD COUNT 8.8 K/mm3 (4.0-10.0)
[2020-02-28 08:08] LABS: ALBUMIN 2.6 g/dl (3.4-5.0); CALCIUM 8.8 mg/dL (8.5-10.1); CREATININE 0.7 mg/dL (0.55-1.3); PHOSPHOROUS 4.6 mg/dL (2.5-4.9); POTASSIUM 3.8 mmol/L (3.5-5.1); TOT PROT 6.1 g/dl (6.4-8.2)
[2020-02-28 08:11] LABS: BILIRUBIN,TOTAL 0.7 mg/dL (0.2-1)
[2020-02-28] MEDS: APIXABAN 5 MG TABLET PO SCH ×2 (09:46→21:41)
[2020-02-28] MEDS: ASPIRIN 81 MG CHEWABLE TABLETS PO SCH (09:46)
[2020-02-28] MEDS: predniSONE 10 MG TABLET (UD) PO SCH (09:46)
[2020-02-28] MEDS: CHOLECALCIFEROL (VIT D3) 1,000 UNIT (25 MCG) TABLET PO SCH (09:46)
[2020-02-28] MEDS: ASCORBIC ACID 500 MG TABLET (FP) PO SCH ×2 (09:46→21:42)
[2020-02-28] MEDS: ZINC SULFATE 220 MG CAPSULE (FP) PO SCH ×2 (09:48→21:42)
[2020-02-28] MEDS: CLOTRIMAZOLE 1% CREAM 15 GM TUBE TP SCH ×2 (09:48→21:42)
[2020-02-28] MEDS: BUDESONIDE/FORMETEROL FUMARATE 80/4.5 mcg INHALER IH SCH ×2 (09:49→21:42)
--- NOTE | 2020-02-28 13:36 | PN ---
Physical Exam: SUBJECTIVE: Patient seen and examined. respiratory status remains unchanged. cont to sat 100% on NRB but unable to tolerate downgrade. considering LTACH. repeat covid sent. OBJECTIVE: Vital Signs Period Temp Pulse Resp BP Sys/Miner Pulse Ox Last 24 Hr 97.8 F-98.4 F 81-95 22-22 108-135/47-85 94-100 GENERAL: The patient is awake, alert, and fully oriented, in mild distress. HEAD: Normal with no signs of trauma. EYES: PERRL, extraocular movements intact, sclera anicteric, conjunctiva clear. No ptosis. NECK: Trachea midline, full range of motion, supple. LUNGS: NO ISOLATION STETHOSCOPE IN THE ROOM. HEART: NO ISOLATION STETHOSCOPE IN THE ROOM. ABDOMEN: Soft, nontender, obese, no guarding, no rebound, no hepatosplenomegaly, no masses. EXTREMITIES: 2+ pulses, warm, well-perfused, no edema. NEUROLOGICAL: Cranial nerves II through XII grossly intact. Normal speech, gait not observed. PSYCH: Normal mood, normal affect. SKIN: Warm, dry, normal turgor, no rashes or lesions noted Laboratory Results - last 24 hr 02/25/20 02/28/20 02/28/20 13:05 06:00 06:01 WBC 8.8 RBC 4.22 Hgb 10.3 L Hct 32.2 L MCV 76.3 L MCH 24.5 L MCHC 32.1 RDW 17.2 H Plt Count 221 MPV 8.8 Absolute Neuts (auto) 3.9 Neutrophils % 44.1 Lymphocytes % 36.6 D Monocytes % 9.8 Eosinophils % 8.9 H Basophils % 0.6 Nucleated RBC % 0 D-Dimer Sodium 138 Potassium 3.8 Chloride 100 Carbon Dioxide 33 H Anion Gap 6 L BUN 13.0 Creatinine 0.7 Est GFR (CKD-EPI)AfAm 141.70 Est GFR (CKD-EPI)NonAf 122.26 POC Glucometer Random Glucose 99 Calcium 8.8 Phosphorus 4.6 Magnesium 2.0 Ferritin 635.5 H Total Bilirubin 0.7 AST 12 L ALT 27 Alkaline Phosphatase 70 LD Total 392 H C-Reactive Protein 3.6 H Total Protein 6.1 L Albumin 2.6 L Procalcitonin 0.11 H 02/28/20 02/28/20 06:01 06:33 WBC RBC Hgb Hct MCV MCH MCHC RDW Plt Count MPV Absolute Neuts (auto) Neutrophils % Lymphocytes % Monocytes % Eosinophils % Basophils % Nucleated RBC % D-Dimer 1479 H Sodium Potassium Chloride Carbon Dioxide Anion Gap BUN Creatinine Est GFR (CKD-EPI)AfAm Est GFR (CKD-EPI)NonAf POC Glucometer 102 Random Glucose Calcium Phosphorus Magnesium Ferritin Total Bilirubin AST ALT Alkaline Phosphatase LD Total C-Reactive Protein Total Protein Albumin Procalcitonin Active Medications Generic Name Dose Route Start Last Admin Trade Name Freq PRN Reason Stop Dose Admin Acetaminophen 650 mg 02/14/20 19:42 02/23/20 10:34 Tylenol - PO 650 mg Q6H PRN Administration FEVER Acetaminophen/Butalbital/Caffeine 1 tablet 02/26/20 13:56 Fioricet - PO Q6H PRN HEADACHE Al Hydroxide/Mg Hydroxide 30 ml 02/21/20 17:49 02/21/20 21:46 Mylanta Suspension - PO 30 ml Q6HPO PRN Administration DYSPEPSIA Albuterol Sulfate 1 puff 02/14/20 19:42 Ventolin Hfa Inhaler - IH Q4H PRN SHORT OF BREATH/WHEEZING Alprazolam 0.5 mg 02/25/20 15:37 Xanax - PO Q12H PRN ANXIETY Apixaban 5 mg 02/14/20 22:00 02/28/20 09:46 Eliquis - PO 5 mg BID SARAH Administration Ascorbic Acid 500 mg 02/14/20 22:00 02/28/20 09:46 Vitamin C - PO 500 mg BID SARAH Administration Aspirin 81 mg 02/15/20 10:00 02/28/20 09:46 Asa - PO 81 mg DAILY [facility]AH Administration Atorvastatin Calcium 40 mg 02/22/20 22:00 02/27/20 21:34 Lipitor - PO 40 mg HS SARAH Administration Budesonide/Formoterol Fumarate 2 puff 02/24/20 22:00 02/28/20 09:49 Symbicort 80/4.5mcg - IH 2 puff BID SARAH Administration Cholecalciferol 2,000 unit 02/15/20 11:53 02/28/20 09:46 Vitamin D3 - PO 2,000 unit DAILY [facility]AH Administration Clotrimazole 1 applic 02/14/20 22:00 02/28/20 09:48 Lotrimin 1% Cream - TP Not Given BID SARAH Guaifenesin/Codeine Phosphate 10 ml 02/14/20 19:42 02/27/20 11:00 Robitussin Ac - PO 10 ml Q6H PRN Administration COUGH Insulin Aspart 1 vial 02/14/20 22:00 02/28/20 11:40 Novolog Vial Sliding Scale - SQ Not Given ACHS SARAH Protocol Insulin Detemir 40 units 02/17/20 07:00 02/28/20 06:34 Levemir Vial SQ 40 unit ACBK [facility]AH Administration Insulin Detemir 40 units 02/21/20 14:11 02/27/20 21:34 Levemir Vial SQ 40 units HS SARAH Administration Melatonin 5 mg 02/14/20 19:42 Melatonin PO HS PRN INSOMNIA Ondansetron HCl 4 mg 02/14/20 19:42 Zofran Injection IVPUSH Q6H PRN NAUSEA Prednisone 5 mg 02/29/20 10:00 Deltasone - PO DAILY SARAH Zinc Sulfate 220 mg 02/14/20 22:00 02/28/20 09:48 Orazinc - PO 220 mg BID SARAH Administration ASSESSMENT/PLAN: 34 y/o male with HTN (not on meds) and newly diagnosed DM on admission, who presents with 3-4 days of increasing dyspnea and diarrhea. Two days ago he began having chest pain with coughing. 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 #COVID 19 Pneumonia - pt satting well n NRB this morning, still dyspneic - no fever spikes. - adjust between NRB and BiPAP (night) as needed to keep O2 >90 - s/p abx - prednisone 5mg PO daily on taper starting t/m - stop trending markers. have been downtrending - vitamin C/vitamin D,zinc - full AC 5 BID eliquis - ID following- s/p convalescent plasma 01/25, s/p tocolizumab 01/29, remdisivir dose /5 given - prognosis guarded not much more to do other than watchful waiting at this time - pending repeat covid. and referral for LTACH will be sent # Atypical Chest Pain - TNI < 0.02 x 2 - EKG:NSR; no acute changes - lipitor 40 HS - On apixaban - ECHO for LVEF, wall motion, valve status when feasible - declining ACEis due to potential side effects - Plan on stress MIBI, due to multiple CAD risks, when stable. F/u with Dr Rossi - cardio recs appreciated # Headache- pt endorsing HERNANDEZ to nurse, demanding excerin however concern for bleed as pt is also on apixaban. Pt refusing tylenol - Fioricet q6 PRN for HERNANDEZ #Newly diagnosed DM - currently 107 - A1C 10.5 - BGMs, c/w Levemir 40 in AM and HS - goal BG 140-180 #Newly diagnosed HLD - total chol 204,LDL 122, HDL 62 - given RF ( obesity, DM, HTN), started lipitor 40 HS #DVT Ppx Eliquis 5mg BID FEN PO fluids monitor labs diabetic diet dispo: Tele monitoring Visit type - Emergency Visit Emergency Visit: Yes ED Registration Date: 01/25/20 Care time: The patient presented to the Emergency Department on the above date and was hospitalized for further evaluation of their emergent condition. - New Patient This patient is new to me today: No - Critical Care Critical Care patient: No ATTENDING PHYSICIAN STATEMENT I saw and evaluated the patient. I reviewed the resident's note and discussed the case with the resident. I agree with the resident's findings and plan as documented. SUBJECTIVE: OBJECTIVE: ASSESSMENT AND PLAN:
--- NOTE | 2020-02-28 16:49 | PN ---
Progress Note, Physician Chief Complaint: Pt A&Ox3;on BIPAP; no chest pain. History of Present Illness: 34yo black man with morbid obesity, DM, hyperlipidemia, ?sleep apnea, recent COVID positive test, presents to the ED with shortness of breath and extreme fatigue. Recently on azithromycin course without relief. Saturating at 98% on room air, placed on 2L nasal cannula upon arrival with symptomatic relief. Patient has been progressively short of breath since diagnosis. Called because pt c/o strong, sharp left breast pain that began today at rest, lasted about an hour. Pt says he had had a similar pain, though less severe and of shorter duration while in the ICU. Pt denies personal or family hx of heart disease; his father has DM. Pt never smoked; does not drink to excess. 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 - Current Medication List Current Medications: Active Medications Acetaminophen (Tylenol -) 650 mg PO Q6H PRN PRN Reason: FEVER Last Admin: 02/23/20 10:34 Dose: 650 mg Documented by: Acetaminophen/Butalbital/Caffeine (Fioricet -) 1 tablet PO Q6H PRN PRN Reason: HEADACHE Al Hydroxide/Mg Hydroxide (Mylanta Suspension -) 30 ml PO Q6HPO PRN PRN Reason: DYSPEPSIA Last Admin: 02/21/20 21:46 Dose: 30 ml Documented by: Albuterol Sulfate (Ventolin Hfa Inhaler -) 1 puff IH Q4H PRN PRN Reason: SHORT OF BREATH/WHEEZING Alprazolam (Xanax -) 0.5 mg PO Q12H PRN PRN Reason: ANXIETY Apixaban (Eliquis -) 5 mg PO BID [facility] Last Admin: 02/28/20 09:46 Dose: 5 mg Documented by: Ascorbic Acid (Vitamin C -) 500 mg PO BID [facility] Last Admin: 02/28/20 09:46 Dose: 500 mg Documented by: Aspirin (Asa -) 81 mg PO DAILY [facility] Last Admin: 02/28/20 09:46 Dose: 81 mg Documented by: Atorvastatin Calcium (Lipitor -) 40 mg PO HS [facility] Last Admin: 02/27/20 21:34 Dose: 40 mg Documented by: Budesonide/Formoterol Fumarate (Symbicort 80/4.5mcg -) 2 puff IH BID [facility] Last Admin: 02/28/20 09:49 Dose: 2 puff Documented by: Cholecalciferol (Vitamin D3 -) 2,000 unit PO DAILY [facility] Last Admin: 02/28/20 09:46 Dose: 2,000 unit Documented by: Clotrimazole (Lotrimin 1% Cream -) 1 applic TP BID [facility] Last Admin: 02/28/20 09:48 Dose: Not Given Documented by: Guaifenesin/Codeine Phosphate (Robitussin Ac -) 10 ml PO Q6H PRN PRN Reason: COUGH Last Admin: 02/27/20 11:00 Dose: 10 ml Documented by: Insulin Aspart (Novolog Vial Sliding Scale -) 1 vial SQ ACHS [facility]; Protocol Last Admin: 02/28/20 11:40 Dose: Not Given Documented by: Insulin Detemir (Levemir Vial) 40 units SQ ACBK [facility] Last Admin: 02/28/20 06:34 Dose: 40 unit Documented by: Insulin Detemir (Levemir Vial) 40 units SQ HS [facility] Last Admin: 02/27/20 21:34 Dose: 40 units Documented by: Losartan Potassium (Cozaar -) 25 mg PO DAILY [facility] Melatonin (Melatonin) 5 mg PO HS PRN PRN Reason: INSOMNIA Ondansetron HCl (Zofran Injection) 4 mg IVPUSH Q6H PRN PRN Reason: NAUSEA Prednisone (Deltasone -) 5 mg PO DAILY [facility] Zinc Sulfate (Orazinc -) 220 mg PO BID [facility] Last Admin: 02/28/20 09:48 Dose: 220 mg Documented by: - Objective Vital Signs: Vital Signs Temperature 98.0 F 02/28/20 14:56 Pulse Rate 94 H 02/28/20 14:56 Respiratory Rate 22 H 02/28/20 14:56 Blood Pressure 103/57 L 02/28/20 14:56 O2 Sat by Pulse Oximetry (%) 99 02/28/20 09:00 Constitutional: Yes: Calm, Obese Eyes: Yes: WNL HENT: Yes: WNL Neck: Yes: WNL Cardiovascular: Yes: Tachycardia (intermittent), S1, S2 Respiratory: Yes: On BiPap, Poor Air Entry, SOB, Tachypnea Gastrointestinal: Yes: Soft, Abdomen, Obese ...Rectal Exam: Yes: Deferred Genitourinary: No: Anuria Breast(s): Yes: WNL Musculoskeletal: Yes: Muscle Weakness Extremities: Yes: Cool Edema: No Peripheral Pulses WNL: Yes Integumentary: Yes: WNL Neurological: Yes: WNL Psychiatric: Yes: WNL Labs: CBC, BMP 02/28/20 06:01 02/28/20 06:00 INR, PTT INR 1.00 (0.83-1.09) 01/25/20 16:29 Fibrinogen 468.0 mg/dL (238-498) 02/25/20 13:05 Abnormal Lab Results 02/28/20 02/28/20 02/28/20 06:00 06:01 06:01 Hgb 10.3 L Hct 32.2 L MCV 76.3 L MCH 24.5 L RDW 17.2 H Eosinophils % 8.9 H D-Dimer 1479 H Carbon Dioxide 33 H Anion Gap 6 L Ferritin 635.5 H AST 12 L LD Total 392 H C-Reactive Protein 3.6 H Total Protein 6.1 L Albumin 2.6 L - ....Imaging Chest X-ray: Image Reviewed EKG: Image Reviewed Assessment/Plan COVID pneumonia ARDS Hyperlipidemia DM Obesity Atypical chest pain Plan: COVID status repeat: results pending. TNI < 0.02 x 2 EKG:NSR; no acute changes LDL cholesterol 122 mg/dL; keep < 70 mg;dL with statin, diet change. On apixaban for anticoagulation. BUN/Cr, electrolytes, daily weight, Is and Os. ECHO for LVEF, wall motion, valve status. Now on losartan (HTN; diastolic dysfunction; DM). Plan on stress MIBI, due to multiple CAD risks, when stable.
--- NOTE | 2020-02-28 18:44 | PN ---
Teaching Attending Note Name of Resident: Nichole Hassan ATTENDING PHYSICIAN STATEMENT I saw and evaluated the patient. I reviewed the resident's note and discussed the case with the resident. I agree with the resident's findings and plan as documented. SUBJECTIVE: Patient continues to saturate 100% on NRB. OBJECTIVE: Vital Signs Temperature 98.0 F 02/28/20 14:56 Pulse Rate 94 H 02/28/20 14:56 Respiratory Rate 22 H 02/28/20 14:56 Blood Pressure 103/57 L 02/28/20 14:56 O2 Sat by Pulse Oximetry (%) 99 02/28/20 09:00 PE: per resident's note on !00% NR CBCD WBC 8.8 K/mm3 (4.0-10.0) 02/28/20 06:01 RBC 4.22 M/mm3 (4.00-5.60) 02/28/20 06:01 Hgb 10.3 GM/dL (11.7-16.9) L 02/28/20 06:01 Hct 32.2 % (35.4-49) L 02/28/20 06:01 MCV 76.3 fl (80-96) L 02/28/20 06:01 MCHC 32.1 g/dl (32.0-35.9) 02/28/20 06:01 RDW 17.2 % (11.9-15.9) H 02/28/20 06:01 Plt Count 221 K/MM3 (134-434) 02/28/20 06:01 MPV 8.8 fl (7.5-11.1) 02/28/20 06:01 CMP Sodium 138 mmol/L (136-145) 02/28/20 06:00 Potassium 3.8 mmol/L (3.5-5.1) 02/28/20 06:00 Chloride 100 mmol/L (98-107) 02/28/20 06:00 Carbon Dioxide 33 mmol/L (21-32) H 02/28/20 06:00 Anion Gap 6 MMOL/L (8-16) L 02/28/20 06:00 BUN 13.0 mg/dL (7-18) 02/28/20 06:00 Creatinine 0.7 mg/dL (0.55-1.3) 02/28/20 06:00 Random Glucose 99 mg/dL (74-106) 02/28/20 06:00 Calcium 8.8 mg/dL (8.5-10.1) 02/28/20 06:00 Total Bilirubin 0.7 mg/dL (0.2-1) 02/28/20 06:00 AST 12 U/L (15-37) L 02/28/20 06:00 ALT 27 U/L (13-61) 02/28/20 06:00 Alkaline Phosphatase 70 U/L (45-117) 02/28/20 06:00 Total Protein 6.1 g/dl (6.4-8.2) L 02/28/20 06:00 Albumin 2.6 g/dl (3.4-5.0) L 02/28/20 06:00 CARDIAC ENZYMES Creatine Kinase 70 U/L (26-308) 02/21/20 12:16 Troponin I < 0.02 ng/ml (0.00-0.05) 02/21/20 21:45 Current Medications Generic Name Dose Route Start Last Admin Trade Name Freq PRN Reason Stop Dose Admin Acetaminophen 650 mg 02/14/20 19:42 02/23/20 10:34 Tylenol - PO 650 mg Q6H PRN Administration FEVER Acetaminophen/Butalbital/Caffeine 1 tablet 02/26/20 13:56 Fioricet - PO Q6H PRN HEADACHE Al Hydroxide/Mg Hydroxide 30 ml 02/21/20 17:49 02/21/20 21:46 Mylanta Suspension - PO 30 ml Q6HPO PRN Administration DYSPEPSIA Albuterol Sulfate 1 puff 02/14/20 19:42 Ventolin Hfa Inhaler - IH Q4H PRN SHORT OF BREATH/WHEEZING Alprazolam 0.5 mg 02/25/20 15:37 Xanax - PO Q12H PRN ANXIETY Apixaban 5 mg 02/14/20 22:00 02/28/20 09:46 Eliquis - PO 5 mg BID [facility] Administration Ascorbic Acid 500 mg 02/14/20 22:00 02/28/20 09:46 Vitamin C - PO 500 mg BID [facility] Administration Aspirin 81 mg 02/15/20 10:00 02/28/20 09:46 Asa - PO 81 mg DAILY [facility] Administration Atorvastatin Calcium 40 mg 02/22/20 22:00 02/27/20 21:34 Lipitor - PO 40 mg HS [facility] Administration Budesonide/Formoterol Fumarate 2 puff 02/24/20 22:00 02/28/20 09:49 Symbicort 80/4.5mcg - IH 2 puff BID [facility] Administration Cholecalciferol 2,000 unit 02/15/20 11:53 02/28/20 09:46 Vitamin D3 - PO 2,000 unit DAILY [facility] Administration Clotrimazole 1 applic 02/14/20 22:00 02/28/20 09:48 Lotrimin 1% Cream - TP Not Given BID [facility] Guaifenesin/Codeine Phosphate 10 ml 02/14/20 19:42 02/27/20 11:00 Robitussin Ac - PO 10 ml Q6H PRN Administration COUGH Insulin Aspart 1 vial 02/14/20 22:00 02/28/20 17:10 Novolog Vial Sliding Scale - SQ 6 units ACHS [facility] Administration Protocol Insulin Detemir 40 units 02/17/20 07:00 02/28/20 06:34 Levemir Vial SQ 40 unit ACBK [facility] Administration Insulin Detemir 40 units 02/21/20 14:11 02/27/20 21:34 Levemir Vial SQ 40 units HS [facility] Administration Losartan Potassium 25 mg 02/29/20 10:00 Cozaar - PO DAILY [facility] Melatonin 5 mg 02/14/20 19:42 Melatonin PO HS PRN INSOMNIA Ondansetron HCl 4 mg 02/14/20 19:42 Zofran Injection IVPUSH Q6H PRN NAUSEA Prednisone 5 mg 02/29/20 10:00 Deltasone - PO DAILY [facility] Zinc Sulfate 220 mg 02/14/20 22:00 02/28/20 09:48 Orazinc - PO 220 mg BID [facility] Administration Microbiology 01/27/20 09:30 Blood - Peripheral Venous Blood Culture - Final NO GROWTH AFTER 5 DAYS INCUBATION 01/27/20 09:30 Blood - Peripheral Venous Blood Culture - Final NO GROWTH AFTER 5 DAYS INCUBATION 01/25/20 16:29 Blood - Peripheral Venous Blood Culture - Final NO GROWTH AFTER 5 DAYS INCUBATION 01/25/20 16:29 Blood - Peripheral Venous Blood Culture - Final NO GROWTH AFTER 5 DAYS INCUBATION 01/27/20 14:15 Sputum - Expectorated Gram Stain - Final 01/27/20 14:15 Sputum - Expectorated Sputum Culture - Final Haemophilus Parainfluenzae Ii 01/27/20 09:20 Urine - Urine Clean Catch Legionella Antigen - Final 01/27/20 09:20 Urine - Urine Clean Catch Streptococcus pneumoniae Antigen (M - Final ASSESSMENT AND PLAN: Patient iS A 34YOm with pmHX OF HTN, migraines, and recent COVID diagnosis who presented with worsening SOB and was found to have acute resp failure # Acute hypoxic resp failure . due to COVID PNA . s/o taciliizumab, Remdisivir, , plasma, and Abx , cont NRB and BIPAP at night and prn . cont AC, steroids taper , albuterol and symbicort ,PRN xanax for anxiety x 3 days # Acute onset CP : resolved # New onset DM with uncontrolled blood sugar due to steroids. on insulin bid 40mg Levemir #Hx of HTN continue meds # Hyperlipidemia continue Lipitor Stress test when stable . maybe as out pt due to resp status DVT px: full ac
[2020-02-28] MEDS: ATORVASTATIN CA 40 MG TABLET (FP) PO SCH (21:41)
[2020-02-28] MEDS ORDERED: PT OWN MED DRAWER 7, Y5N ONE (22:08)
[2020-02-29] MEDS: INSULIN (LEVEMIR) 100 UNITS/ML UNITS SQ SCH ×2 (06:17→21:43)
[2020-02-29] MEDS: INSULIN SLIDING SCALE (NOVOLOG) 1 VIAL SQ SCH ×4 (06:20→21:44)
[2020-02-29] MEDS ORDERED: INSULIN (LEVEMIR) 100 UNITS/ML UNITS SQ ONE (06:55)
--- NOTE | 2020-02-29 07:27 | PN ---
Progress Note, Physician History of Present Illness: pulmonary alert,dyspneic on 100%nrb,o2 sat 95% - Current Medication List Current Medications: Active Medications Acetaminophen (Tylenol -) 650 mg PO Q6H PRN PRN Reason: FEVER Last Admin: 02/23/20 10:34 Dose: 650 mg Documented by: Acetaminophen/Butalbital/Caffeine (Fioricet -) 1 tablet PO Q6H PRN PRN Reason: HEADACHE Al Hydroxide/Mg Hydroxide (Mylanta Suspension -) 30 ml PO Q6HPO PRN PRN Reason: DYSPEPSIA Last Admin: 02/21/20 21:46 Dose: 30 ml Documented by: Albuterol Sulfate (Ventolin Hfa Inhaler -) 1 puff IH Q4H PRN PRN Reason: SHORT OF BREATH/WHEEZING Alprazolam (Xanax -) 0.5 mg PO Q12H PRN PRN Reason: ANXIETY Apixaban (Eliquis -) 5 mg PO BID [facility] Last Admin: 02/28/20 21:41 Dose: 5 mg Documented by: Ascorbic Acid (Vitamin C -) 500 mg PO BID [facility] Last Admin: 02/28/20 21:42 Dose: 500 mg Documented by: Aspirin (Asa -) 81 mg PO DAILY [facility] Last Admin: 02/28/20 09:46 Dose: 81 mg Documented by: Atorvastatin Calcium (Lipitor -) 40 mg PO HS [facility] Last Admin: 02/28/20 21:41 Dose: 40 mg Documented by: Budesonide/Formoterol Fumarate (Symbicort 80/4.5mcg -) 2 puff IH BID [facility] Last Admin: 02/28/20 21:42 Dose: 2 puff Documented by: Cholecalciferol (Vitamin D3 -) 2,000 unit PO DAILY [facility] Last Admin: 02/28/20 09:46 Dose: 2,000 unit Documented by: Clotrimazole (Lotrimin 1% Cream -) 1 applic TP BID [facility] Last Admin: 02/28/20 21:42 Dose: Not Given Documented by: Guaifenesin/Codeine Phosphate (Robitussin Ac -) 10 ml PO Q6H PRN PRN Reason: COUGH Last Admin: 02/27/20 11:00 Dose: 10 ml Documented by: Insulin Aspart (Novolog Vial Sliding Scale -) 1 vial SQ [facility]; Protocol Last Admin: 02/29/20 06:20 Dose: Not Given Documented by: Insulin Detemir (Levemir Vial) 40 units SQ ACBK [facility] Last Admin: 02/29/20 06:17 Dose: 40 unit Documented by: Insulin Detemir (Levemir Vial) 40 units SQ HS [facility] Last Admin: 02/28/20 21:44 Dose: 40 units Documented by: Losartan Potassium (Cozaar -) 25 mg PO DAILY [facility] Melatonin (Melatonin) 5 mg PO HS PRN PRN Reason: INSOMNIA Ondansetron HCl (Zofran Injection) 4 mg IVPUSH Q6H PRN PRN Reason: NAUSEA Prednisone (Deltasone -) 5 mg PO DAILY [facility] Zinc Sulfate (Orazinc -) 220 mg PO BID [facility] Last Admin: 02/28/20 21:42 Dose: 220 mg Documented by: - Objective Vital Signs: Vital Signs Temperature 98.7 F 02/29/20 05:51 Pulse Rate 82 02/29/20 05:51 Respiratory Rate 21 H 02/29/20 05:51 Blood Pressure 103/54 L 02/29/20 05:51 O2 Sat by Pulse Oximetry (%) 98 02/29/20 01:33 Constitutional: Yes: Calm, Mild Distress, Obese Eyes: Yes: WNL HENT: Yes: WNL Neck: Yes: WNL Cardiovascular: Yes: Regular Rate and Rhythm, S1, S2 Respiratory: Yes: Diminished Gastrointestinal: Yes: Normal Bowel Sounds, Soft Extremities: Yes: WNL Edema: No Labs: CBC, BMP 02/28/20 06:01 Laboratory Tests 02/28/20 02/28/20 02/29/20 06:00 06:01 05:45 D-Dimer 1479 H Ferritin 635.5 H 679.2 H LD Total 392 H 554 H C-Reactive Protein 3.6 H 3.8 H Problem List - Problems (1) Acute hypoxemic respiratory failure Code(s): J96.01 - ACUTE RESPIRATORY FAILURE WITH HYPOXIA (2) COVID-19 Code(s): U07.1 - COVID POSITIVE (3) HTN (hypertension) Code(s): I10 - ESSENTIAL (PRIMARY) HYPERTENSION (4) REYNALDO (obstructive sleep apnea) Code(s): G47.33 - OBSTRUCTIVE SLEEP APNEA (ADULT) (PEDIATRIC) (5) Obesity Code(s): E66.9 - OBESITY, UNSPECIFIED Assessment/Plan A/P Acute Hypoxic Respiratory Failure COVID Pneumonia ARDS HTN DM - s/p remdesivir course - s/p tocilizumab infusion - prednisone - empiric anticoagulation - completed empiric antibiotics - s/p convalescent plasma transfusion - trend ferritin, LDH, CRP - O2 to keep SpO2 >90% - BiPAP if pt complies - ac - inhaled bronchodilators DR MCKEON
[2020-02-29 08:01] LABS: BASO % 0.5 % (0-2.0); EOS % 7.5 % (0-4.5); HEMATOCRIT 33.4 % (35.4-49); HEMOGLOBIN 10.7 GM/dL (11.7-16.9); MCH 24.5 pg (25.7-33.7); MCHC 32.1 g/dl (32.0-35.9); MEAN CELL VOLUME 76.5 fl (80-96); MEAN PLT VOLUME 8.9 fl (7.5-11.1); MONO % 9.2 % (3.8-10.2); NEUT % 50.8 % (42.8-82.8); PLATELET COUNT 250 K/MM3 (134-434); RBC 4.37 M/mm3 (4.00-5.60); RDW 17.6 % (11.9-15.9); WHITE BLOOD COUNT 9.2 K/mm3 (4.0-10.0)
[2020-02-29 08:19] LABS: ALBUMIN 2.8 g/dl (3.4-5.0); BILIRUBIN,TOTAL 0.7 mg/dL (0.2-1); BLOOD UREA NITROGEN 14.1 mg/dL (7-18); CALCIUM 8.6 mg/dL (8.5-10.1); CREATININE 0.6 mg/dL (0.55-1.3); PHOSPHOROUS 4.6 mg/dL (2.5-4.9); POTASSIUM 3.9 mmol/L (3.5-5.1); TOT PROT 6.2 g/dl (6.4-8.2)
--- NOTE | 2020-02-29 08:25 | PN ---
Teaching Attending Note Name of Resident: Odalys Hutson ATTENDING PHYSICIAN STATEMENT I saw and evaluated the patient. I reviewed the resident's note and discussed the case with the resident. I agree with the resident's findings and plan as documented. SUBJECTIVE: Patient continues to be on NR. continues to feel shortness of breath. OBJECTIVE: Vital Signs Temperature 98.7 F 02/29/20 05:51 Pulse Rate 82 02/29/20 05:51 Respiratory Rate 21 H 02/29/20 05:51 Blood Pressure 103/54 L 02/29/20 05:51 O2 Sat by Pulse Oximetry (%) 98 02/29/20 01:33 PE:per resident's note CBCD WBC 8.8 K/mm3 (4.0-10.0) 02/28/20 06:01 RBC 4.22 M/mm3 (4.00-5.60) 02/28/20 06:01 Hgb 10.3 GM/dL (11.7-16.9) L 02/28/20 06:01 Hct 32.2 % (35.4-49) L 02/28/20 06:01 MCV 76.3 fl (80-96) L 02/28/20 06:01 MCHC 32.1 g/dl (32.0-35.9) 02/28/20 06:01 RDW 17.2 % (11.9-15.9) H 02/28/20 06:01 Plt Count 221 K/MM3 (134-434) 02/28/20 06:01 MPV 8.8 fl (7.5-11.1) 02/28/20 06:01 CMP Sodium 137 mmol/L (136-145) 02/29/20 05:45 Potassium 3.9 mmol/L (3.5-5.1) 02/29/20 05:45 Chloride 99 mmol/L (98-107) 02/29/20 05:45 Carbon Dioxide 31 mmol/L (21-32) 02/29/20 05:45 Anion Gap 7 MMOL/L (8-16) L 02/29/20 05:45 BUN 14.1 mg/dL (7-18) 02/29/20 05:45 Creatinine 0.6 mg/dL (0.55-1.3) 02/29/20 05:45 Random Glucose 112 mg/dL (74-106) H 02/29/20 05:45 Calcium 8.6 mg/dL (8.5-10.1) 02/29/20 05:45 Total Bilirubin 0.7 mg/dL (0.2-1) 02/29/20 05:45 AST 25 U/L (15-37) 02/29/20 05:45 ALT 28 U/L (13-61) 02/29/20 05:45 Alkaline Phosphatase 71 U/L (45-117) 02/29/20 05:45 Total Protein 6.2 g/dl (6.4-8.2) L 02/29/20 05:45 Albumin 2.8 g/dl (3.4-5.0) L 02/29/20 05:45 CARDIAC ENZYMES Creatine Kinase 70 U/L (26-308) 02/21/20 12:16 Troponin I < 0.02 ng/ml (0.00-0.05) 02/21/20 21:45 Current Medications Generic Name Dose Route Start Last Admin Trade Name Freq PRN Reason Stop Dose Admin Acetaminophen 650 mg 02/14/20 19:42 02/23/20 10:34 Tylenol - PO 650 mg Q6H PRN Administration FEVER Acetaminophen/Butalbital/Caffeine 1 tablet 02/26/20 13:56 Fioricet - PO Q6H PRN HEADACHE Al Hydroxide/Mg Hydroxide 30 ml 02/21/20 17:49 02/21/20 21:46 Mylanta Suspension - PO 30 ml Q6HPO PRN Administration DYSPEPSIA Albuterol Sulfate 1 puff 02/14/20 19:42 Ventolin Hfa Inhaler - IH Q4H PRN SHORT OF BREATH/WHEEZING Alprazolam 0.5 mg 02/25/20 15:37 Xanax - PO Q12H PRN ANXIETY Apixaban 5 mg 02/14/20 22:00 02/28/20 21:41 Eliquis - PO 5 mg BID [facility] Administration Ascorbic Acid 500 mg 02/14/20 22:00 02/28/20 21:42 Vitamin C - PO 500 mg BID [facility] Administration Aspirin 81 mg 02/15/20 10:00 02/28/20 09:46 Asa - PO 81 mg DAILY [facility] Administration Atorvastatin Calcium 40 mg 02/22/20 22:00 02/28/20 21:41 Lipitor - PO 40 mg HS [facility] Administration Budesonide/Formoterol Fumarate 2 puff 02/24/20 22:00 02/28/20 21:42 Symbicort 80/4.5mcg - IH 2 puff BID [facility] Administration Cholecalciferol 2,000 unit 02/15/20 11:53 02/28/20 09:46 Vitamin D3 - PO 2,000 unit DAILY [facility] Administration Clotrimazole 1 applic 02/14/20 22:00 02/28/20 21:42 Lotrimin 1% Cream - TP Not Given BID [facility] Guaifenesin/Codeine Phosphate 10 ml 02/14/20 19:42 02/27/20 11:00 Robitussin Ac - PO 10 ml Q6H PRN Administration COUGH Insulin Aspart 1 vial 02/14/20 22:00 02/29/20 06:20 Novolog Vial Sliding Scale - SQ Not Given [facility] Protocol Insulin Detemir 40 units 02/17/20 07:00 02/29/20 06:17 Levemir Vial SQ 40 unit ACBK [facility] Administration Insulin Detemir 40 units 02/21/20 14:11 02/28/20 21:44 Levemir Vial SQ 40 units HS [facility] Administration Losartan Potassium 25 mg 02/29/20 10:00 Cozaar - PO DAILY [facility] Melatonin 5 mg 02/14/20 19:42 Melatonin PO HS PRN INSOMNIA Ondansetron HCl 4 mg 02/14/20 19:42 Zofran Injection IVPUSH Q6H PRN NAUSEA Prednisone 5 mg 02/29/20 10:00 Deltasone - PO DAILY [facility] Zinc Sulfate 220 mg 02/14/20 22:00 02/28/20 21:42 Orazinc - PO 220 mg BID [facility] Administration Microbiology 01/27/20 09:30 Blood - Peripheral Venous Blood Culture - Final NO GROWTH AFTER 5 DAYS INCUBATION 01/27/20 09:30 Blood - Peripheral Venous Blood Culture - Final NO GROWTH AFTER 5 DAYS INCUBATION 01/25/20 16:29 Blood - Peripheral Venous Blood Culture - Final NO GROWTH AFTER 5 DAYS INCUBATION 01/25/20 16:29 Blood - Peripheral Venous Blood Culture - Final NO GROWTH AFTER 5 DAYS INCUBATION 01/27/20 14:15 Sputum - Expectorated Gram Stain - Final 01/27/20 14:15 Sputum - Expectorated Sputum Culture - Final Haemophilus Parainfluenzae Ii 01/27/20 09:20 Urine - Urine Clean Catch Legionella Antigen - Final 01/27/20 09:20 Urine - Urine Clean Catch Streptococcus pneumoniae Antigen (M - Final ASSESSMENT AND PLAN: Patient iS A 34yom with Pmhx of HTN, migraines, and recent COVID diagnosis who presented with worsening SOB and was found to have acute resp failure # Acute hypoxic resp failure . due to COVID PNA . s/o taciliizumab, Remdisivir, , plasma, and Abx , cont NRB and BIPAP at night and prn . cont AC, steroids taper , albuterol and symbicort ,PRN xanax for anxiety x 3 days. No change in his status. # Acute onset CP : resolved # New onset DM with uncontrolled blood sugar due to steroids on 5mg prednisone now, continue to monitor the blood sugar closely. On insulin bid 40mg Levemir, continue Diabetic diet. #Hx of HTN continue meds # Hyperlipidemia continue Lipitor Stress test when stable as an outpatient. DVT px: full ac
[2020-02-29] MEDS: ASPIRIN 81 MG CHEWABLE TABLETS PO SCH (10:18)
[2020-02-29] MEDS: ASCORBIC ACID 500 MG TABLET (FP) PO SCH ×2 (10:18→21:42)
[2020-02-29] MEDS: LOSARTAN POTASSIUM 25 MG TABLET PO SCH (10:18)
[2020-02-29] MEDS: predniSONE 10 MG TABLET (UD) PO SCH (10:18)
[2020-02-29] MEDS: APIXABAN 5 MG TABLET PO SCH ×2 (10:18→21:48)
[2020-02-29] MEDS: CHOLECALCIFEROL (VIT D3) 1,000 UNIT (25 MCG) TABLET PO SCH (10:21)
[2020-02-29] MEDS: ZINC SULFATE 220 MG CAPSULE (FP) PO SCH ×2 (10:21→21:43)
[2020-02-29] MEDS: BUDESONIDE/FORMETEROL FUMARATE 80/4.5 mcg INHALER IH SCH ×2 (10:21→21:43)
--- NOTE | 2020-02-29 10:34 | PN ---
Physical Exam: SUBJECTIVE: Patient seen and examined at bedside. Currently on NRB and states that he continues to desat and become tachypneic when de-escalated. Denies chest pain, hernandez/d, n/v, abd pain. Toño PO well. No urinary/bowel complaints. OBJECTIVE: Vital Signs Period Temp Pulse Resp BP Sys/Miner Pulse Ox Last 24 Hr 98.0 F-99.5 F 82-106 20-22 100-113/54-74 98-99 GENERAL: The patient is awake, alert, and fully oriented, in mild distress. HEAD: Normal with no signs of trauma. EYES: PERRL, extraocular movements intact, sclera anicteric, conjunctiva clear. No ptosis. NECK: Trachea midline, full range of motion, supple. LUNGS: On NRB. Decreased air entry throughout. Symmetric chest rise. HEART: RRR. Normal S1, S2. No murmurs noted. ABDOMEN: Obese. Soft, nontender, obese, no guarding, no rebound, no hepatosplenomegaly, no masses. EXTREMITIES: 2+ pulses, warm, well-perfused, no edema. NEUROLOGICAL: Cranial nerves II through XII grossly intact. Normal speech, gait not observed. Laboratory Results - last 24 hr 02/28/20 02/28/20 02/29/20 12:12 15:57 05:45 WBC 9.2 RBC 4.37 Hgb 10.7 L Hct 33.4 L MCV 76.5 L MCH 24.5 L MCHC 32.1 RDW 17.6 H Plt Count 250 MPV 8.9 Absolute Neuts (auto) 4.7 Neutrophils % 50.8 Lymphocytes % 32.0 Monocytes % 9.2 Eosinophils % 7.5 H Basophils % 0.5 Nucleated RBC % 0 Sodium Potassium Chloride Carbon Dioxide Anion Gap BUN Creatinine Est GFR (CKD-EPI)AfAm Est GFR (CKD-EPI)NonAf POC Glucometer 262 Random Glucose Calcium Phosphorus Magnesium Ferritin Total Bilirubin AST ALT Alkaline Phosphatase LD Total C-Reactive Protein Total Protein Albumin COVID-19 (BERT) Not detected 02/29/20 02/29/20 05:45 06:19 WBC RBC Hgb Hct MCV MCH MCHC RDW Plt Count MPV Absolute Neuts (auto) Neutrophils % Lymphocytes % Monocytes % Eosinophils % Basophils % Nucleated RBC % Sodium 137 Potassium 3.9 Chloride 99 Carbon Dioxide 31 Anion Gap 7 L BUN 14.1 Creatinine 0.6 Est GFR (CKD-EPI)AfAm 150.97 Est GFR (CKD-EPI)NonAf 130.26 POC Glucometer 120 Random Glucose 112 H Calcium 8.6 Phosphorus 4.6 Magnesium 2.0 Ferritin 679.2 H Total Bilirubin 0.7 AST 25 ALT 28 Alkaline Phosphatase 71 LD Total 554 H C-Reactive Protein 3.8 H Total Protein 6.2 L Albumin 2.8 L COVID-19 (BERT) Active Medications Generic Name Dose Route Start Last Admin Trade Name Freq PRN Reason Stop Dose Admin Acetaminophen 650 mg 02/14/20 19:42 02/23/20 10:34 Tylenol - PO 650 mg Q6H PRN Administration FEVER Acetaminophen/Butalbital/Caffeine 1 tablet 02/26/20 13:56 Fioricet - PO Q6H PRN HEADACHE Al Hydroxide/Mg Hydroxide 30 ml 02/21/20 17:49 02/21/20 21:46 Mylanta Suspension - PO 30 ml Q6HPO PRN Administration DYSPEPSIA Albuterol Sulfate 1 puff 02/14/20 19:42 Ventolin Hfa Inhaler - IH Q4H PRN SHORT OF BREATH/WHEEZING Alprazolam 0.5 mg 02/25/20 15:37 Xanax - PO Q12H PRN ANXIETY Apixaban 5 mg 02/14/20 22:00 02/29/20 10:18 Eliquis - PO 5 mg BID SARAH Administration Ascorbic Acid 500 mg 02/14/20 22:00 02/29/20 10:18 Vitamin C - PO 500 mg BID SARAH Administration Aspirin 81 mg 02/15/20 10:00 02/29/20 10:18 Asa - PO 81 mg DAILY SARAH Administration Atorvastatin Calcium 40 mg 02/22/20 22:00 02/28/20 21:41 Lipitor - PO 40 mg HS SARAH Administration Budesonide/Formoterol Fumarate 2 puff 02/24/20 22:00 02/29/20 10:21 Symbicort 80/4.5mcg - IH 2 puff BID SARAH Administration Cholecalciferol 2,000 unit 02/15/20 11:53 02/29/20 10:21 Vitamin D3 - PO 2,000 unit DAILY SARAH Administration Clotrimazole 1 applic 02/14/20 22:00 06/02/20 21:42 Lotrimin 1% Cream - TP Not Given BID SARAH Guaifenesin/Codeine Phosphate 10 ml 02/14/20 19:42 02/27/20 11:00 Robitussin Ac - PO 10 ml Q6H PRN Administration COUGH Insulin Aspart 1 vial 02/14/20 22:00 02/29/20 06:20 Novolog Vial Sliding Scale - SQ Not Given ACHS [facility] Protocol Insulin Detemir 40 units 02/17/20 07:00 02/29/20 06:17 Levemir Vial SQ 40 unit ACBK SARAH Administration Insulin Detemir 40 units 02/21/20 14:11 02/28/20 21:44 Levemir Vial SQ 40 units HS SARAH Administration Losartan Potassium 25 mg 02/29/20 10:00 02/29/20 10:18 Cozaar - PO 25 mg DAILY SARAH Administration Melatonin 5 mg 02/14/20 19:42 Melatonin PO HS PRN INSOMNIA Ondansetron HCl 4 mg 02/14/20 19:42 Zofran Injection IVPUSH Q6H PRN NAUSEA Prednisone 5 mg 02/29/20 10:00 02/29/20 10:18 Deltasone - PO 5 mg DAILY SARAH Administration Zinc Sulfate 220 mg 02/14/20 22:00 02/29/20 10:21 Orazinc - PO 220 mg BID SARAH Administration ASSESSMENT/PLAN: 34 y/o male with HTN (not on meds) and newly diagnosed DM on admission, who presents with 3-4 days of increasing dyspnea and diarrhea. Two days ago he began having chest pain with coughing. 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 #COVID 19 Pneumonia; S/p abx, remdesivir course, tocilizumab infusion, convalescent plasma transfusion -Currently stable on NRB. Cont BiPAP at night. -Cont Prednisone 5 QD; taper -Cont Eliquis 5 BID -Cont Vitamin C, Vitamin D, Zinc -Prognosis guarded not much more to do other than watchful waiting at this time -Repeat COVID swab neg (02/27) -Will need to de-escalate O2 therapy to NC in order to discharge to LTAC # Atypical Chest Pain; Resolved. -TNI neg x2; EKG showed NSR, no acute ischemic changes -Cont Lipitor 40 HS, Eliquis 5 BID, started on Losartan 25 -ECHO for LVEF, wall motion, valve status when feasible -Per cardio, plan on stress MIBI, due to multiple CAD risks, when stable; f/u with Dr Rossi as outpatient # Headache; Stable. - Fioricet q6 PRN for HERNANDEZ #Newly diagnosed DM; A1c 10.5%. -BGM/ISS ACHS; goal BG 140-180 -Cont Levemir 40 in AM and HS #Newly diagnosed HLD; total chol 204, LDL 122, HDL 62 -Given RF (obesity, DM, HTN), started Lipitor 40 HS #Prophylaxis DVT: Eliquis 5 mg BID FEN -PO hydration -recheck lytes in AM -diabetic diet Dispo -Cont to monitor on tele Visit type - Emergency Visit Emergency Visit: Yes ED Registration Date: 01/25/20 Care time: The patient presented to the Emergency Department on the above date and was hospitalized for further evaluation of their emergent condition. - New Patient This patient is new to me today: No - Critical Care Critical Care patient: No ATTENDING PHYSICIAN STATEMENT I saw and evaluated the patient. I reviewed the resident's note and discussed the case with the resident. I agree with the resident's findings and plan as documented. SUBJECTIVE: OBJECTIVE: ASSESSMENT AND PLAN:
--- NOTE | 2020-02-29 10:47 | PN ---
Progress Note, Physician History of Present Illness: 34yo male with recent COVID positive test presents to the ED with shortness of breath and extreme fatigue. Recently on azithromycin course without relief. Saturating at 98% on room air, placed on 2L nasal cannula upon arrival with symptomatic relief. Patient has been progressively short of breath since diagnosis. - Current Medication List Current Medications: Active Medications Acetaminophen (Tylenol -) 650 mg PO Q6H PRN PRN Reason: FEVER Last Admin: 02/23/20 10:34 Dose: 650 mg Documented by: Acetaminophen/Butalbital/Caffeine (Fioricet -) 1 tablet PO Q6H PRN PRN Reason: HEADACHE Al Hydroxide/Mg Hydroxide (Mylanta Suspension -) 30 ml PO Q6HPO PRN PRN Reason: DYSPEPSIA Last Admin: 02/21/20 21:46 Dose: 30 ml Documented by: Albuterol Sulfate (Ventolin Hfa Inhaler -) 1 puff IH Q4H PRN PRN Reason: SHORT OF BREATH/WHEEZING Alprazolam (Xanax -) 0.5 mg PO Q12H PRN PRN Reason: ANXIETY Apixaban (Eliquis -) 5 mg PO BID [facility] Last Admin: 02/29/20 10:18 Dose: 5 mg Documented by: Ascorbic Acid (Vitamin C -) 500 mg PO BID [facility] Last Admin: 02/29/20 10:18 Dose: 500 mg Documented by: Aspirin (Asa -) 81 mg PO DAILY [facility] Last Admin: 02/29/20 10:18 Dose: 81 mg Documented by: Atorvastatin Calcium (Lipitor -) 40 mg PO HS [facility] Last Admin: 02/28/20 21:41 Dose: 40 mg Documented by: Budesonide/Formoterol Fumarate (Symbicort 80/4.5mcg -) 2 puff IH BID [facility] Last Admin: 02/29/20 10:21 Dose: 2 puff Documented by: Cholecalciferol (Vitamin D3 -) 2,000 unit PO DAILY [facility] Last Admin: 02/29/20 10:21 Dose: 2,000 unit Documented by: Clotrimazole (Lotrimin 1% Cream -) 1 applic TP BID [facility] Last Admin: 02/28/20 21:42 Dose: Not Given Documented by: Guaifenesin/Codeine Phosphate (Robitussin Ac -) 10 ml PO Q6H PRN PRN Reason: COUGH Last Admin: 02/27/20 11:00 Dose: 10 ml Documented by: Insulin Aspart (Novolog Vial Sliding Scale -) 1 vial SQ ACHS [facility]; Protocol Last Admin: 02/29/20 06:20 Dose: Not Given Documented by: Insulin Detemir (Levemir Vial) 40 units SQ ACBK [facility] Last Admin: 02/29/20 06:17 Dose: 40 unit Documented by: Insulin Detemir (Levemir Vial) 40 units SQ HS [facility] Last Admin: 02/28/20 21:44 Dose: 40 units Documented by: Losartan Potassium (Cozaar -) 25 mg PO DAILY [facility] Last Admin: 02/29/20 10:18 Dose: 25 mg Documented by: Melatonin (Melatonin) 5 mg PO HS PRN PRN Reason: INSOMNIA Ondansetron HCl (Zofran Injection) 4 mg IVPUSH Q6H PRN PRN Reason: NAUSEA Prednisone (Deltasone -) 5 mg PO DAILY [facility] Last Admin: 02/29/20 10:18 Dose: 5 mg Documented by: Zinc Sulfate (Orazinc -) 220 mg PO BID [facility] Last Admin: 02/29/20 10:21 Dose: 220 mg Documented by: - Objective Vital Signs: Vital Signs Temperature 99.5 F 02/29/20 10:00 Pulse Rate 102 H 02/29/20 10:00 Respiratory Rate 22 H 02/29/20 10:00 Blood Pressure 113/65 02/29/20 10:00 O2 Sat by Pulse Oximetry (%) 98 02/29/20 01:33 Eyes: Yes: WNL, Conjunctiva Clear, EOM Intact HENT: Yes: WNL, Atraumatic, Normocephalic Neck: Yes: WNL, Supple, Trachea Midline Cardiovascular: Yes: WNL, Regular Rate and Rhythm Respiratory: Yes: Diminished Gastrointestinal: Yes: WNL, Normal Bowel Sounds Genitourinary: Yes: WNL Musculoskeletal: Yes: WNL Extremities: Yes: WNL Edema: No Integumentary: Yes: WNL Neurological: Yes: WNL, Alert, Oriented ...Motor Strength: WNL Psychiatric: Yes: WNL Labs: CBC, BMP 02/29/20 05:45 02/29/20 05:45 INR, PTT INR 1.00 (0.83-1.09) 01/25/20 16:29 Fibrinogen 468.0 mg/dL (238-498) 02/25/20 13:05 Problem List - Problems (1) Acute hypoxemic respiratory failure Code(s): J96.01 - ACUTE RESPIRATORY FAILURE WITH HYPOXIA (2) COVID-19 Code(s): U07.1 - COVID POSITIVE (3) HTN (hypertension) Code(s): I10 - ESSENTIAL (PRIMARY) HYPERTENSION (4) REYNALDO (obstructive sleep apnea) Code(s): G47.33 - OBSTRUCTIVE SLEEP APNEA (ADULT) (PEDIATRIC) (5) Obesity Code(s): E66.9 - OBESITY, UNSPECIFIED (6) Bronchitis Code(s): J40 - BRONCHITIS, NOT SPECIFIED ACUTE OR CHRONIC (7) Cough Code(s): R05 - COUGH Assessment/Plan COVID pneumonia ARDS Hyperlipidemia DM Obesity Atypical chest pain Plan: COVID negative. ECHO pending TNI < 0.02 x 2 EKG:NSR; no acute changes F/u lipid profile, and keep LDL cholesterol < 70 mg;dL with statin, diet change. On apixaban for anticoagulation. BUN/Cr, electrolytes, daily weight, Is and Os. Now on losartan. Plan on stress MIBI, due to multiple CAD risks, when stable.
[2020-02-29] MEDS: CLOTRIMAZOLE 1% CREAM 15 GM TUBE TP SCH ×2 (10:55→21:42)
[2020-02-29] MEDS: ATORVASTATIN CA 40 MG TABLET (FP) PO SCH (21:42)
[2020-03-01] MEDS: INSULIN SLIDING SCALE (NOVOLOG) 1 VIAL SQ SCH ×4 (06:13→21:07)
[2020-03-01] MEDS: INSULIN (LEVEMIR) 100 UNITS/ML UNITS SQ SCH (06:13)
[2020-03-01 06:49] LABS: ALBUMIN 2.6 g/dl (3.4-5.0); BILIRUBIN,TOTAL 0.6 mg/dL (0.2-1); BLOOD UREA NITROGEN 12.7 mg/dL (7-18); CALCIUM 8.7 mg/dL (8.5-10.1); CREATININE 0.7 mg/dL (0.55-1.3); POTASSIUM 3.9 mmol/L (3.5-5.1); TOT PROT 5.9 g/dl (6.4-8.2)
[2020-03-01 08:33] LABS: BASO % 0.7 % (0-2.0); EOS % 7.2 % (0-4.5); HEMATOCRIT 31.7 % (35.4-49); HEMOGLOBIN 10.1 GM/dL (11.7-16.9); LYMPH % 29.8 % (8-40); MCH 24.6 pg (25.7-33.7); MCHC 31.9 g/dl (32.0-35.9); MONO % 9.5 % (3.8-10.2); NEUT % 52.8 % (42.8-82.8); PLATELET COUNT 261 K/MM3 (134-434); RBC 4.12 M/mm3 (4.00-5.60); RDW 17.1 % (11.9-15.9); WHITE BLOOD COUNT 10.2 K/mm3 (4.0-10.0)
[2020-03-01] MEDS: CHOLECALCIFEROL (VIT D3) 1,000 UNIT (25 MCG) TABLET PO SCH (09:04)
[2020-03-01] MEDS: LOSARTAN POTASSIUM 25 MG TABLET PO SCH (09:04)
[2020-03-01] MEDS: predniSONE 10 MG TABLET (UD) PO SCH (09:04)
[2020-03-01] MEDS: ZINC SULFATE 220 MG CAPSULE (FP) PO SCH ×2 (09:05→21:09)
[2020-03-01] MEDS: CLOTRIMAZOLE 1% CREAM 15 GM TUBE TP SCH ×2 (09:05→21:10)
[2020-03-01] MEDS: ASPIRIN 81 MG CHEWABLE TABLETS PO SCH (09:05)
[2020-03-01] MEDS: APIXABAN 5 MG TABLET PO SCH ×3 (09:05→21:08)
[2020-03-01] MEDS: ASCORBIC ACID 500 MG TABLET (FP) PO SCH ×2 (09:07→21:09)
[2020-03-01] MEDS: BUDESONIDE/FORMETEROL FUMARATE 80/4.5 mcg INHALER IH SCH ×2 (09:11→22:04)
--- NOTE | 2020-03-01 09:46 | PN ---
Progress Note (short form) - Note Progress Note: PULMONARY Remains on NRB, still dyspneic on exertion. +coughing fits with pink sputum. Vital Signs Period Temp Pulse Resp BP Sys/Miner Pulse Ox Last 24 Hr 97.6 F-99.5 F 79-102 18-22 101-133/53-80 100-100 Intake & Output 02/27/20 02/28/20 02/29/20 03/01/20 23:59 23:59 23:59 23:59 Intake Total 380 300 760 0 Output Total 5418 689 9273 400 Balance -620 -500 -490 -400 Gen: frequent coughing Heart: RRR Lung: distant breath sounds Abd: soft, nontender Ext: no edema CBC, BMP 03/01/20 05:20 03/01/20 05:20 Active Medications Acetaminophen (Tylenol -) 650 mg PO Q6H PRN PRN Reason: FEVER Last Admin: 02/23/20 10:34 Dose: 650 mg Documented by: Acetaminophen/Butalbital/Caffeine (Fioricet -) 1 tablet PO Q6H PRN PRN Reason: HEADACHE Al Hydroxide/Mg Hydroxide (Mylanta Suspension -) 30 ml PO Q6HPO PRN PRN Reason: DYSPEPSIA Last Admin: 02/21/20 21:46 Dose: 30 ml Documented by: Albuterol Sulfate (Ventolin Hfa Inhaler -) 1 puff IH Q4H PRN PRN Reason: SHORT OF BREATH/WHEEZING Alprazolam (Xanax -) 0.5 mg PO Q12H PRN PRN Reason: ANXIETY Apixaban (Eliquis -) 5 mg PO BID [facility] Last Admin: 03/01/20 09:12 Dose: Not Given Documented by: Ascorbic Acid (Vitamin C -) 500 mg PO BID [facility] Last Admin: 03/01/20 09:07 Dose: 500 mg Documented by: Aspirin (Asa -) 81 mg PO DAILY [facility] Last Admin: 03/01/20 09:05 Dose: 81 mg Documented by: Atorvastatin Calcium (Lipitor -) 40 mg PO HS [facility] Last Admin: 02/29/20 21:42 Dose: 40 mg Documented by: Budesonide/Formoterol Fumarate (Symbicort 80/4.5mcg -) 2 puff IH BID [facility] Last Admin: 03/01/20 09:11 Dose: 2 puff Documented by: Cholecalciferol (Vitamin D3 -) 2,000 unit PO DAILY [facility] Last Admin: 03/01/20 09:04 Dose: 2,000 unit Documented by: Clotrimazole (Lotrimin 1% Cream -) 1 applic TP BID [facility] Last Admin: 03/01/20 09:05 Dose: Not Given Documented by: Guaifenesin/Codeine Phosphate (Robitussin Ac -) 10 ml PO Q6H PRN PRN Reason: COUGH Last Admin: 02/27/20 11:00 Dose: 10 ml Documented by: Insulin Aspart (Novolog Vial Sliding Scale -) 1 vial SQ ACHS [facility]; Protocol Last Admin: 03/01/20 06:13 Dose: Not Given Documented by: Insulin Detemir (Levemir Vial) 40 units SQ ACBK [facility] Last Admin: 03/01/20 06:13 Dose: 40 unit Documented by: Insulin Detemir (Levemir Vial) 40 units SQ HS [facility] Last Admin: 02/29/20 21:43 Dose: 40 units Documented by: Losartan Potassium (Cozaar -) 25 mg PO DAILY [facility] Last Admin: 03/01/20 09:04 Dose: 25 mg Documented by: Melatonin (Melatonin) 5 mg PO HS PRN PRN Reason: INSOMNIA Ondansetron HCl (Zofran Injection) 4 mg IVPUSH Q6H PRN PRN Reason: NAUSEA Prednisone (Deltasone -) 5 mg PO DAILY [facility] Last Admin: 03/01/20 09:04 Dose: 5 mg Documented by: Zinc Sulfate (Orazinc -) 220 mg PO BID [facility] Last Admin: 03/01/20 09:05 Dose: 220 mg Documented by: A/P Acute Hypoxic Respiratory Failure COVID Pneumonia ARDS HTN DM Anemia - s/p remdesivir course - s/p tocilizumab infusion - prednisone - continue anticoagulation - completed empiric antibiotics - s/p convalescent plasma transfusion - trend ferritin, LDH, CRP - O2 to keep SpO2 >90% - BiPAP at night
[2020-03-01] MEDS ORDERED: BENZOCAINE/MENTH/CETYLPYRD CL 1 EACH LOZENGE MM PRN (10:13)
[2020-03-01] MEDS: BENZOCAINE/MENTH/CETYLPYRD CL 1 EACH LOZENGE MM PRN (10:35)
--- NOTE | 2020-03-01 11:04 | PN ---
Physical Exam: SUBJECTIVE: Patient seen and examined at the bedside, still coughing with laryngitis but states he is feeling better. Refusing to take his eliquis this morning. OBJECTIVE: Vital Signs Period Temp Pulse Resp BP Sys/Miner Pulse Ox Last 24 Hr 97.6 F-98.5 F 79-91 18-21 101-133/53-80 100-100 GENERAL: The patient is awake, alert, and fully oriented, in mild distress. HEAD: Normal with no signs of trauma. EYES: PERRL, extraocular movements intact, sclera anicteric, conjunctiva clear. No ptosis. NECK: Trachea midline, full range of motion, supple. LUNGS: On NRB. Decreased air entry throughout. Symmetric chest rise. HEART: RRR. Normal S1, S2. No murmurs noted. ABDOMEN: Obese. Soft, nontender, obese, no guarding, no rebound, no hepatosplenomegaly, no masses. EXTREMITIES: 2+ pulses, warm, well-perfused, no edema. NEUROLOGICAL: Cranial nerves II through XII grossly intact. Normal speech, gait not observed. Laboratory Results - last 24 hr 02/29/20 02/29/20 03/01/20 16:31 20:37 05:20 WBC 10.2 H RBC 4.12 Hgb 10.1 L Hct 31.7 L MCV 77.0 L MCH 24.6 L MCHC 31.9 L RDW 17.1 H Plt Count 261 MPV 9.0 Absolute Neuts (auto) 5.4 Neutrophils % 52.8 Lymphocytes % 29.8 Monocytes % 9.5 Eosinophils % 7.2 H Basophils % 0.7 Nucleated RBC % 0 Sodium Potassium Chloride Carbon Dioxide Anion Gap BUN Creatinine Est GFR (CKD-EPI)AfAm Est GFR (CKD-EPI)NonAf POC Glucometer 185 223 Random Glucose Calcium Total Bilirubin AST ALT Alkaline Phosphatase Total Protein Albumin 03/01/20 03/01/20 05:20 06:12 WBC RBC Hgb Hct MCV MCH MCHC RDW Plt Count MPV Absolute Neuts (auto) Neutrophils % Lymphocytes % Monocytes % Eosinophils % Basophils % Nucleated RBC % Sodium 139 Potassium 3.9 Chloride 101 Carbon Dioxide 33 H Anion Gap 5 L BUN 12.7 Creatinine 0.7 Est GFR (CKD-EPI)AfAm 141.70 Est GFR (CKD-EPI)NonAf 122.26 POC Glucometer 101 Random Glucose 104 Calcium 8.7 Total Bilirubin 0.6 AST 16 ALT 28 Alkaline Phosphatase 71 Total Protein 5.9 L Albumin 2.6 L Active Medications Generic Name Dose Route Start Last Admin Trade Name Abilioq PRN Reason Stop Dose Admin Acetaminophen 650 mg 02/14/20 19:42 02/23/20 10:34 Tylenol - PO 650 mg Q6H PRN Administration FEVER Acetaminophen/Butalbital/Caffeine 1 tablet 02/26/20 13:56 Fioricet - PO Q6H PRN HEADACHE Al Hydroxide/Mg Hydroxide 30 ml 02/21/20 17:49 02/21/20 21:46 Mylanta Suspension - PO 30 ml Q6HPO PRN Administration DYSPEPSIA Albuterol Sulfate 1 puff 02/14/20 19:42 Ventolin Hfa Inhaler - IH Q4H PRN SHORT OF BREATH/WHEEZING Alprazolam 0.5 mg 02/25/20 15:37 Xanax - PO Q12H PRN ANXIETY Apixaban 5 mg 02/14/20 22:00 03/01/20 09:12 Eliquis - PO Not Given BID SARAH Ascorbic Acid 500 mg 02/14/20 22:00 03/01/20 09:07 Vitamin C - PO 500 mg BID SARAH Administration Aspirin 81 mg 02/15/20 10:00 03/01/20 09:05 Asa - PO 81 mg DAILY SARAH Administration Atorvastatin Calcium 40 mg 02/22/20 22:00 02/29/20 21:42 Lipitor - PO 40 mg HS SARAH Administration Benzocaine/Menthol 1 each 03/01/20 10:20 03/01/20 10:35 Cepacol Lozenge - MM 1 each Q4H PRN Administration SORE THROAT Budesonide/Formoterol Fumarate 2 puff 02/24/20 22:00 03/01/20 09:11 Symbicort 80/4.5mcg - IH 2 puff BID SARAH Administration Cholecalciferol 2,000 unit 02/15/20 11:53 03/01/20 09:04 Vitamin D3 - PO 2,000 unit DAILY SARAH Administration Clotrimazole 1 applic 02/14/20 22:00 03/01/20 09:05 Lotrimin 1% Cream - TP Not Given BID SARAH Guaifenesin/Codeine Phosphate 10 ml 02/14/20 19:42 02/27/20 11:00 Robitussin Ac - PO 10 ml Q6H PRN Administration COUGH Insulin Aspart 1 vial 02/14/20 22:00 03/01/20 06:13 Novolog Vial Sliding Scale - SQ Not Given ACHS [facility] Protocol Insulin Detemir 40 units 02/17/20 07:00 03/01/20 06:13 Levemir Vial SQ 40 unit ACBK SARAH Administration Insulin Detemir 40 units 02/21/20 14:11 02/29/20 21:43 Levemir Vial SQ 40 units HS SARAH Administration Losartan Potassium 25 mg 02/29/20 10:00 03/01/20 09:04 Cozaar - PO 25 mg DAILY [facility]ARH Administration Melatonin 5 mg 02/14/20 19:42 Melatonin PO HS PRN INSOMNIA Ondansetron HCl 4 mg 02/14/20 19:42 Zofran Injection IVPUSH Q6H PRN NAUSEA Prednisone 5 mg 02/29/20 10:00 03/01/20 09:04 Deltasone - PO 5 mg DAILY SARAH Administration Zinc Sulfate 220 mg 02/14/20 22:00 03/01/20 09:05 Orazinc - PO 220 mg BID SARAH Administration ASSESSMENT/PLAN: 34 y/o male with HTN (not on meds) and newly diagnosed DM on admission, who presents with 3-4 days of increasing dyspnea and diarrhea. Two days ago he began having chest pain with coughing. 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 #COVID 19 Pneumonia; S/p abx, remdesivir course, tocilizumab infusion, convalescent plasma transfusion -Currently stable on NRB, wean as tolerated. Will attempt to place pt on ventimask today. -Cont Prednisone 5 QD; taper -Cont Eliquis 5 BID -Cont Vitamin C, Vitamin D, Zinc -Prognosis guarded not much more to do other than watchful waiting at this time -Repeat COVID swab neg (02/27) -Will need to de-escalate O2 therapy to NC in order to discharge to LTAC # Atypical Chest Pain; Resolved. -TNI neg x2; EKG showed NSR, no acute ischemic changes -Cont Lipitor 40 HS, Eliquis 5 BID, started on Losartan 25 -ECHO for LVEF, wall motion, valve status when feasible -Per cardio, plan on stress MIBI, due to multiple CAD risks, when stable; f/u with Dr Rossi as outpatient # Headache; Stable. - Fioricet q6 PRN for HERNANDEZ #Newly diagnosed DM; A1c 10.5%. -BGM/ISS ACHS; goal BG 140-180 -Cont Levemir 40 in AM and HS #Newly diagnosed HLD; total chol 204, LDL 122, HDL 62 -Given RF (obesity, DM, HTN), started Lipitor 40 HS #Prophylaxis DVT: Eliquis 5 mg BID FEN -PO hydration -recheck lytes in AM -diabetic diet Dispo -Cont to monitor on tele Visit type - Emergency Visit Emergency Visit: Yes ED Registration Date: 01/25/20 Care time: The patient presented to the Emergency Department on the above date and was hospitalized for further evaluation of their emergent condition. - New Patient This patient is new to me today: No - Critical Care Critical Care patient: No ATTENDING PHYSICIAN STATEMENT I saw and evaluated the patient. I reviewed the resident's note and discussed the case with the resident. I agree with the resident's findings and plan as documented. SUBJECTIVE: OBJECTIVE: ASSESSMENT AND PLAN:
--- NOTE | 2020-03-01 11:47 | PN ---
Progress Note, Physician Chief Complaint: Pt A&Ox3;remains on BIPAP; no chest pain; able to walk to bathroom with less SOB. History of Present Illness: 34yo black man with morbid obesity, DM, hyperlipidemia, ?sleep apnea, recent COVID positive test, presents to the ED with shortness of breath and extreme fatigue. Recently on azithromycin course without relief. Saturating at 98% on room air, placed on 2L nasal cannula upon arrival with symptomatic relief. Patient has been progressively short of breath since diagnosis. Called because pt c/o strong, sharp left breast pain that began today at rest, lasted about an hour. Pt says he had had a similar pain, though less severe and of shorter duration while in the ICU. Pt denies personal or family hx of heart disease; his father has DM. Pt never smoked; does not drink to excess. 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 - Current Medication List Current Medications: Active Medications Acetaminophen (Tylenol -) 650 mg PO Q6H PRN PRN Reason: FEVER Last Admin: 02/23/20 10:34 Dose: 650 mg Documented by: Acetaminophen/Butalbital/Caffeine (Fioricet -) 1 tablet PO Q6H PRN PRN Reason: HEADACHE Al Hydroxide/Mg Hydroxide (Mylanta Suspension -) 30 ml PO Q6HPO PRN PRN Reason: DYSPEPSIA Last Admin: 02/21/20 21:46 Dose: 30 ml Documented by: Albuterol Sulfate (Ventolin Hfa Inhaler -) 1 puff IH Q4H PRN PRN Reason: SHORT OF BREATH/WHEEZING Alprazolam (Xanax -) 0.5 mg PO Q12H PRN PRN Reason: ANXIETY Apixaban (Eliquis -) 5 mg PO BID [facility] Last Admin: 03/01/20 09:12 Dose: Not Given Documented by: Ascorbic Acid (Vitamin C -) 500 mg PO BID [facility] Last Admin: 03/01/20 09:07 Dose: 500 mg Documented by: Aspirin (Asa -) 81 mg PO DAILY [facility] Last Admin: 03/01/20 09:05 Dose: 81 mg Documented by: Atorvastatin Calcium (Lipitor -) 40 mg PO HS [facility] Last Admin: 02/29/20 21:42 Dose: 40 mg Documented by: Benzocaine/Menthol (Cepacol Lozenge -) 1 each MM Q4H PRN PRN Reason: SORE THROAT Last Admin: 03/01/20 10:35 Dose: 1 each Documented by: Budesonide/Formoterol Fumarate (Symbicort 80/4.5mcg -) 2 puff IH BID [facility] Last Admin: 03/01/20 09:11 Dose: 2 puff Documented by: Cholecalciferol (Vitamin D3 -) 2,000 unit PO DAILY [facility] Last Admin: 03/01/20 09:04 Dose: 2,000 unit Documented by: Clotrimazole (Lotrimin 1% Cream -) 1 applic TP BID [facility] Last Admin: 03/01/20 09:05 Dose: Not Given Documented by: Guaifenesin/Codeine Phosphate (Robitussin Ac -) 10 ml PO Q6H PRN PRN Reason: COUGH Last Admin: 02/27/20 11:00 Dose: 10 ml Documented by: Insulin Aspart (Novolog Vial Sliding Scale -) 1 vial SQ ACHS [facility]; Protocol Last Admin: 03/01/20 06:13 Dose: Not Given Documented by: Insulin Detemir (Levemir Vial) 40 units SQ ACBK [facility] Last Admin: 03/01/20 06:13 Dose: 40 unit Documented by: Insulin Detemir (Levemir Vial) 40 units SQ HS [facility] Last Admin: 02/29/20 21:43 Dose: 40 units Documented by: Losartan Potassium (Cozaar -) 25 mg PO DAILY [facility] Last Admin: 03/01/20 09:04 Dose: 25 mg Documented by: Melatonin (Melatonin) 5 mg PO HS PRN PRN Reason: INSOMNIA Ondansetron HCl (Zofran Injection) 4 mg IVPUSH Q6H PRN PRN Reason: NAUSEA Prednisone (Deltasone -) 5 mg PO DAILY [facility] Last Admin: 03/01/20 09:04 Dose: 5 mg Documented by: Zinc Sulfate (Orazinc -) 220 mg PO BID [facility] Last Admin: 03/01/20 09:05 Dose: 220 mg Documented by: - Objective Vital Signs: Vital Signs Temperature 98.2 F 03/01/20 08:54 Pulse Rate 79 03/01/20 08:55 Respiratory Rate 18 03/01/20 08:54 Blood Pressure 133/80 03/01/20 08:54 O2 Sat by Pulse Oximetry (%) 100 03/01/20 09:00 Constitutional: Yes: Calm, Obese Eyes: Yes: WNL Cardiovascular: Yes: S1, S2 Respiratory: Yes: On BiPap, SOB, Tachypnea Gastrointestinal: Yes: Soft, Abdomen, Obese ...Rectal Exam: Yes: Deferred Genitourinary: Yes: Anuria Musculoskeletal: Yes: Muscle Weakness Extremities: Yes: Cool Edema: No Peripheral Pulses WNL: Yes Integumentary: Yes: WNL Neurological: Yes: Alert, Oriented Psychiatric: Yes: Alert, Oriented Labs: CBC, BMP 03/01/20 05:20 03/01/20 05:20 INR, PTT INR 1.00 (0.83-1.09) 01/25/20 16:29 Fibrinogen 468.0 mg/dL (238-498) 02/25/20 13:05 Abnormal Lab Results 03/02/20 03/02/20 03/02/20 06:20 06:20 06:20 RBC 3.98 L Hgb 9.8 L Hct 30.5 L MCV 76.6 L MCH 24.7 L RDW 17.4 H ABG pCO2 at Pt Temp ABG pO2 at Pt Temp ABG HCO3 ABG O2 Sat (Measured) ABG Base Excess Carbon Dioxide 37 H Anion Gap 3 L Ferritin 560.8 H LD Total 465 H C-Reactive Protein 3.4 H Total Protein 5.8 L Albumin 2.6 L 03/02/20 11:05 RBC Hgb Hct MCV MCH RDW ABG pCO2 at Pt Temp 45.8 H ABG pO2 at Pt Temp 171.8 H ABG HCO3 30.5 H ABG O2 Sat (Measured) 99.2 H ABG Base Excess 5.7 H Carbon Dioxide Anion Gap Ferritin LD Total C-Reactive Protein Total Protein Albumin - ....Imaging Chest X-ray: Image Reviewed EKG: Image Reviewed Assessment/Plan COVID pneumonia ARDS Hyperlipidemia DM Obesity Atypical chest pain Plan: COVID not detected (02/28/20) TNI < 0.02 x 2 EKG:NSR; no acute changes LDL cholesterol 122 mg/dL; keep < 70 mg;dL with statin, diet change. On apixaban for anticoagulation. BUN/Cr, electrolytes, daily weight, Is and Os. ECHO for LVEF, wall motion, valve status. Now on losartan (HTN; diastolic dysfunction; DM). Plan on stress MIBI, due to multiple CAD risks, when stable.
[2020-03-01] MEDS: guaiFENesin/CODEINE 10 ML UNIT-DOSE CUPS PO PRN ×2 (12:11→21:18)
--- NOTE | 2020-03-01 12:32 | ECHO ---
Name: LY OVERTON Exam:Adult Echocardiogram Study Date: 03/01/2020 11:26 AM Age: 34 yrs Reason For Study: respiratory distress htn dm Height: 61 in Weight: 310 lb BSA: 2.3 m2 MMode/2D Measurements & Calculations IVSd: 1.7 cm Ao root diam: 3.0 cm LVIDd: 3.6 cm LA dimension: 3.1 cm LVIDs: 2.5 cm LVPWd: 1.5 cm LVPWs: 1.8 cm EDV(Teich): 54.4 ml ESV(Teich): 22.7 ml LVOT diam: 2.5 cm Doppler Measurements & Calculations MV E max danny: 78.0 cm/sec Ao V2 max: 116.4 cm/sec MV A max danny: 45.9 cm/sec Ao max P.4 mmHg MV E/A: 1.7 MV dec time: 0.19 sec JOY(V,D): 4.6 cm2 LV V1 max P.1 mmHg PA V2 max: 112.7 cm/sec LV V1 max: 112.5 cm/sec PA max P.1 mmHg Procedure A complete two-dimensional transthoracic echocardiogram was performed (2D, M-mode, Doppler and color flow Doppler). The study was technically difficult with many images being suboptimal in quality. Left Ventricle The left ventricular size, thickness and function are normal. Ejection Fraction = 55-60%. No regional wall motion abnormalities noted. Right Ventricle The right ventricle is not well visualized. Atria The left atrial size is normal. Right atrium not well visualized. Mitral Valve There is no mitral regurgitation noted. Tricuspid Valve The tricuspid valve is not well visualized. Aortic Valve No hemodynamically significant valvular aortic stenosis. No aortic regurgitation is present. Pulmonic Valve There is no pulmonic valvular regurgitation. Great Vessels The aortic root is normal size. Pericardium/Pleura There is no pericardial effusion. Interpretation Summary The study was technically difficult with many images being suboptimal in quality. The left ventricular size, thickness and function are normal The right ventricle is not well visualized. Right atrium not well visualized. MD Frank Christina 03/01/2020 12:31 PM
--- NOTE | 2020-03-01 12:50 | PN ---
Teaching Attending Note Name of Resident: Beth Hooks ATTENDING PHYSICIAN STATEMENT I saw and evaluated the patient. I reviewed the resident's note and discussed the case with the resident. I agree with the resident's findings and plan as documented. SUBJECTIVE: Patient continues to be on NR, unable to titrate it down at this time, positive for cough. OBJECTIVE: Vital Signs Temperature 98.2 F 03/01/20 08:54 Pulse Rate 79 03/01/20 08:55 Respiratory Rate 18 03/01/20 08:54 Blood Pressure 133/80 03/01/20 08:54 O2 Sat by Pulse Oximetry (%) 100 03/01/20 09:00 PE: per resident's note CBCD WBC 10.2 K/mm3 (4.0-10.0) H 03/01/20 05:20 RBC 4.12 M/mm3 (4.00-5.60) 03/01/20 05:20 Hgb 10.1 GM/dL (11.7-16.9) L 03/01/20 05:20 Hct 31.7 % (35.4-49) L 03/01/20 05:20 MCV 77.0 fl (80-96) L 03/01/20 05:20 MCHC 31.9 g/dl (32.0-35.9) L 03/01/20 05:20 RDW 17.1 % (11.9-15.9) H 03/01/20 05:20 Plt Count 261 K/MM3 (134-434) 03/01/20 05:20 MPV 9.0 fl (7.5-11.1) 03/01/20 05:20 CMP Sodium 139 mmol/L (136-145) 03/01/20 05:20 Potassium 3.9 mmol/L (3.5-5.1) 03/01/20 05:20 Chloride 101 mmol/L (98-107) 03/01/20 05:20 Carbon Dioxide 33 mmol/L (21-32) H 03/01/20 05:20 Anion Gap 5 MMOL/L (8-16) L 03/01/20 05:20 BUN 12.7 mg/dL (7-18) 03/01/20 05:20 Creatinine 0.7 mg/dL (0.55-1.3) 06/04/20 05:20 Random Glucose 104 mg/dL (74-106) 03/01/20 05:20 Calcium 8.7 mg/dL (8.5-10.1) 03/01/20 05:20 Total Bilirubin 0.6 mg/dL (0.2-1) 03/01/20 05:20 AST 16 U/L (15-37) 03/01/20 05:20 ALT 28 U/L (13-61) 03/01/20 05:20 Alkaline Phosphatase 71 U/L (45-117) 03/01/20 05:20 Total Protein 5.9 g/dl (6.4-8.2) L 03/01/20 05:20 Albumin 2.6 g/dl (3.4-5.0) L 03/01/20 05:20 CARDIAC ENZYMES Creatine Kinase 70 U/L (26-308) 02/21/20 12:16 Troponin I < 0.02 ng/ml (0.00-0.05) 02/21/20 21:45 Current Medications Generic Name Dose Route Start Last Admin Trade Name Freq PRN Reason Stop Dose Admin Acetaminophen 650 mg 02/14/20 19:42 02/23/20 10:34 Tylenol - PO 650 mg Q6H PRN Administration FEVER Acetaminophen/Butalbital/Caffeine 1 tablet 02/26/20 13:56 Fioricet - PO Q6H PRN HEADACHE Al Hydroxide/Mg Hydroxide 30 ml 02/21/20 17:49 02/21/20 21:46 Mylanta Suspension - PO 30 ml Q6HPO PRN Administration DYSPEPSIA Albuterol Sulfate 1 puff 02/14/20 19:42 Ventolin Hfa Inhaler - IH Q4H PRN SHORT OF BREATH/WHEEZING Alprazolam 0.5 mg 02/25/20 15:37 Xanax - PO Q12H PRN ANXIETY Apixaban 5 mg 02/14/20 22:00 03/01/20 09:12 Eliquis - PO Not Given BID SARAH Ascorbic Acid 500 mg 02/14/20 22:00 03/01/20 09:07 Vitamin C - PO 500 mg BID SARAH Administration Aspirin 81 mg 02/15/20 10:00 03/01/20 09:05 Asa - PO 81 mg DAILY SARAH Administration Atorvastatin Calcium 40 mg 02/22/20 22:00 02/29/20 21:42 Lipitor - PO 40 mg HS SARAH Administration Benzocaine/Menthol 1 each 03/01/20 10:20 03/01/20 10:35 Cepacol Lozenge - MM 1 each Q4H PRN Administration SORE THROAT Budesonide/Formoterol Fumarate 2 puff 02/24/20 22:00 03/01/20 09:11 Symbicort 80/4.5mcg - IH 2 puff BID SARAH Administration Cholecalciferol 2,000 unit 02/15/20 11:53 03/01/20 09:04 Vitamin D3 - PO 2,000 unit DAILY SARAH Administration Clotrimazole 1 applic 02/14/20 22:00 03/01/20 09:05 Lotrimin 1% Cream - TP Not Given BID SARAH Guaifenesin/Codeine Phosphate 10 ml 02/14/20 19:42 03/01/20 12:11 Robitussin Ac - PO 10 ml Q6H PRN Administration COUGH Insulin Aspart 1 vial 02/14/20 22:00 03/01/20 12:07 Novolog Vial Sliding Scale - SQ 2 units ACHS SARAH Administration Protocol Insulin Detemir 40 units 02/17/20 07:00 03/01/20 06:13 Levemir Vial SQ 40 unit ACBK SARAH Administration Insulin Detemir 40 units 02/21/20 14:11 02/29/20 21:43 Levemir Vial SQ 40 units HS SARAH Administration Losartan Potassium 25 mg 02/29/20 10:00 03/01/20 09:04 Cozaar - PO 25 mg DAILY SARAH Administration Melatonin 5 mg 02/14/20 19:42 Melatonin PO HS PRN INSOMNIA Ondansetron HCl 4 mg 02/14/20 19:42 Zofran Injection IVPUSH Q6H PRN NAUSEA Prednisone 5 mg 02/29/20 10:00 03/01/20 09:04 Deltasone - PO 5 mg DAILY SARAH Administration Zinc Sulfate 220 mg 02/14/20 22:00 03/01/20 09:05 Orazinc - PO 220 mg BID SARAH Administration Microbiology 01/27/20 09:30 Blood - Peripheral Venous Blood Culture - Final NO GROWTH AFTER 5 DAYS INCUBATION 01/27/20 09:30 Blood - Peripheral Venous Blood Culture - Final NO GROWTH AFTER 5 DAYS INCUBATION 01/25/20 16:29 Blood - Peripheral Venous Blood Culture - Final NO GROWTH AFTER 5 DAYS INCUBATION 01/25/20 16:29 Blood - Peripheral Venous Blood Culture - Final NO GROWTH AFTER 5 DAYS INCUBATION 01/27/20 14:15 Sputum - Expectorated Gram Stain - Final 01/27/20 14:15 Sputum - Expectorated Sputum Culture - Final Haemophilus Parainfluenzae Ii 01/27/20 09:20 Urine - Urine Clean Catch Legionella Antigen - Final 01/27/20 09:20 Urine - Urine Clean Catch Streptococcus pneumoniae Antigen (M - Final ASSESSMENT AND PLAN: Patient iS A 34yom with Pmhx of HTN, migraines, and recent COVID diagnosis who presented with worsening SOB and was found to have acute resp failure # Acute hypoxic resp failure . due to COVID PNA .with very slow progression, Patient continues to refuse to going to LTAC, s/o taciliizumab, Remdisivir, , plasma, and Abx , cont NRB and BIPAP at night and prn . cont AC, steroids taper , albuterol and symbicort ,PRN xanax for anxiety x 3 days. No change in his status. s/p treatment with Abx for H.parainfluenza. # Acute onset CP : resolved # New onset DM with uncontrolled blood sugar due to steroids on 5mg prednisone now, continue to monitor the blood sugar closely. On insulin bid 40mg Levemir, continue Diabetic diet. #Hx of HTN continue meds # Hyperlipidemia continue Lipitor Stress test when stable as an outpatient. DVT px: full ac Eliquis Repeat Covid is negative, continue Full PPEs., since he continues to be short of breath and cough continuesly. will get a cxr.
[2020-03-01] MEDS ORDERED: ACETAMINOPHEN 325 MG TABLET (FP) PO PRN (15:34)
[2020-03-01] MEDS ORDERED: ONDANSETRON 4 MG/2 ML VIAL IVPUSH PRN (15:34)
[2020-03-01] MEDS ORDERED: ACETAMINOPHEN/CAFFEINE/BUTALBITAL 1 TAB PO PRN (15:34)
[2020-03-01] MEDS ORDERED: ALPRAZolam 0.25 MG TABLET PO PRN (15:34)
[2020-03-01] MEDS ORDERED: ALBUTEROL SO4 HFA INHALER IH PRN (15:34)
[2020-03-01] MEDS ORDERED: MAG HYDROX/AL HYDROX/SIMETH -MYLANTA- ORAL SUSPENSION PO PRN (15:34)
[2020-03-01] MEDS ORDERED: INSULIN (NOVOLOG) ASPART 100 UNITS/ML 10ML VIAL ONE (21:06)
[2020-03-01] MEDS: MELATONIN 5 MG TABLETS PO PRN (21:08)
[2020-03-01] MEDS: ATORVASTATIN CA 40 MG TABLET (FP) PO SCH (21:08)
[2020-03-01] MEDS ORDERED: INSULIN (LEVEMIR) 100 UNITS/ML UNITS SQ SCH (22:00)
[2020-03-02] MEDS ORDERED: INSULIN (NOVOLOG) ASPART 100 UNITS/ML 10ML VIAL ONE (06:10)
[2020-03-02] MEDS: INSULIN SLIDING SCALE (NOVOLOG) 1 VIAL SQ SCH ×4 (06:20→22:09)
[2020-03-02] MEDS ORDERED: INSULIN (LEVEMIR) 100 UNITS/ML UNITS SQ SCH ×3 (07:00→22:00)
[2020-03-02 07:24] LABS: HEMATOCRIT 30.5 % (35.4-49); HEMOGLOBIN 9.8 GM/dL (11.7-16.9); MCH 24.7 pg (25.7-33.7); MCHC 32.3 g/dl (32.0-35.9); MEAN CELL VOLUME 76.6 fl (80-96); MEAN PLT VOLUME 8.3 fl (7.5-11.1); PLATELET COUNT 272 K/MM3 (134-434); RBC 3.98 M/mm3 (4.00-5.60); RDW 17.4 % (11.9-15.9); WHITE BLOOD COUNT 8.8 K/mm3 (4.0-10.0)
[2020-03-02 07:37] LABS: ALBUMIN 2.6 g/dl (3.4-5.0); BILIRUBIN,TOTAL 0.6 mg/dL (0.2-1); BLOOD UREA NITROGEN 11.4 mg/dL (7-18); CALCIUM 8.6 mg/dL (8.5-10.1); CREATININE 0.7 mg/dL (0.55-1.3); POTASSIUM 3.8 mmol/L (3.5-5.1); TOT PROT 5.8 g/dl (6.4-8.2)
--- NOTE | 2020-03-02 08:09 | PN ---
Progress Note (short form) - Note Progress Note: PULMONARY Remains SOB Remains on NRB, PAP hs and prn VSS/afebrile Gen: frequent coughing Heart: RRR Lung: distant breath sounds Abd: soft, nontender Ext: no edemaose: lans/meds/notes/images reviewed A/P Acute Hypoxic Respiratory Failure COVID Pneumonia ARDS HTN DM Anemia - s/p remdesivir course - s/p tocilizumab infusion - prednisone - continue anticoagulation - completed empiric antibiotics - s/p convalescent plasma transfusion - trend ferritin, LDH, CRP - O2 to keep SpO2 >90% - BiPAP at night - CTA ordered Mauro Lopez MD
[2020-03-02] MEDS: guaiFENesin/CODEINE 10 ML UNIT-DOSE CUPS PO PRN (08:47)
[2020-03-02] MEDS: ASPIRIN 81 MG CHEWABLE TABLETS PO SCH (10:24)
[2020-03-02] MEDS: APIXABAN 5 MG TABLET PO SCH ×2 (10:24→22:01)
[2020-03-02] MEDS: ASCORBIC ACID 500 MG TABLET (FP) PO SCH ×2 (10:24→22:01)
[2020-03-02] MEDS: ZINC SULFATE 220 MG CAPSULE (FP) PO SCH ×2 (10:24→22:04)
[2020-03-02] MEDS: BUDESONIDE/FORMETEROL FUMARATE 80/4.5 mcg INHALER IH SCH ×2 (10:24→22:02)
[2020-03-02] MEDS: CHOLECALCIFEROL (VIT D3) 1,000 UNIT (25 MCG) TABLET PO SCH (10:24)
[2020-03-02] MEDS: LOSARTAN POTASSIUM 25 MG TABLET PO SCH (10:24)
[2020-03-02] MEDS ORDERED: guaiFENesin/CODEINE 10 ML UNIT-DOSE CUPS PO PRN (11:04)
[2020-03-02] MEDS: guaiFENesin/CODEINE 10 ML UNIT-DOSE CUPS PO SCH ×4 (12:51→23:17)
[2020-03-02] MEDS: CLOTRIMAZOLE 1% CREAM 15 GM TUBE TP SCH ×2 (12:54→22:07)
[2020-03-02 14:48] LABS: ALLENS TEST POSITIVE; ARTERIAL BLD GAS O2 SATURATION 99.2 % (95-98); ARTERIAL BLOOD GAS BASE EXCESS 5.7 mmol/L (-2-2); ARTERIAL BLOOD GAS PCO2 45.8 mmHg (35-45); ARTERIAL BLOOD GAS PO2 171.8 mmHg (80-100); ARTERIAL BLOOD GAS pH 7.44 (7.35-7.45)
[2020-03-02] MEDS: DEXAMETHASONE SOD PHOSPHATE 4 MG/1 ML VIAL IVPUSH SCH ×2 (15:09→18:38)
--- NOTE | 2020-03-02 16:05 | PN ---
Physical Exam: SUBJECTIVE: Patient seen and examined at the bedside, seated and SOB, coughing frequently with continued hemoptysis. OBJECTIVE: Vital Signs Period Temp Pulse Resp BP Sys/Miner Pulse Ox Last 24 Hr 98.2 F-99.1 F 79-97 20-22 102-134/50-76 95-100 GENERAL: AOx3 HEAD: Normal with no signs of trauma. EYES: PERRL, extraocular movements intact, sclera anicteric, conjunctiva clear. No ptosis. NECK: Trachea midline, full range of motion, supple. LUNGS: On NRB. Decreased air entry throughout. Symmetric chest rise. HEART: RRR. Normal S1, S2. No murmurs noted. ABDOMEN: Obese. Soft, nontender, obese, no guarding, no rebound, no hepatosplenomegaly, no masses. EXTREMITIES: 2+ pulses, warm, well-perfused, no edema. NEUROLOGICAL: Cranial nerves II through XII grossly intact. Normal speech, gait not observed. Laboratory Results - last 24 hr 03/01/20 03/01/20 03/02/20 17:14 21:04 06:19 WBC RBC Hgb Hct MCV MCH MCHC RDW Plt Count MPV Anticoagulation Therapy Puncture Site ABG pH ABG pCO2 at Pt Temp ABG pO2 at Pt Temp ABG HCO3 ABG O2 Sat (Measured) ABG O2 Content ABG Base Excess Rehan Test Patient On Oxygen O2 Delivery Device Oxygen Flow Rate Vent Mode Vent Rate Mechanical Rate Pressure Support Vent Sodium Potassium Chloride Carbon Dioxide Anion Gap BUN Creatinine Est GFR (CKD-EPI)AfAm Est GFR (CKD-EPI)NonAf POC Glucometer 154 161 80 Random Glucose Calcium Ferritin Total Bilirubin AST ALT Alkaline Phosphatase LD Total C-Reactive Protein Total Protein Albumin 03/02/20 03/02/20 03/02/20 06:20 06:20 06:20 WBC 8.8 RBC 3.98 L Hgb 9.8 L Hct 30.5 L MCV 76.6 L MCH 24.7 L MCHC 32.3 RDW 17.4 H Plt Count 272 MPV 8.3 Anticoagulation Therapy Puncture Site ABG pH ABG pCO2 at Pt Temp ABG pO2 at Pt Temp ABG HCO3 ABG O2 Sat (Measured) ABG O2 Content ABG Base Excess Rehan Test Patient On Oxygen O2 Delivery Device Oxygen Flow Rate Vent Mode Vent Rate Mechanical Rate Pressure Support Vent Sodium 140 Potassium 3.8 Chloride 100 Carbon Dioxide 37 H Anion Gap 3 L BUN 11.4 Creatinine 0.7 Est GFR (CKD-EPI)AfAm 141.70 Est GFR (CKD-EPI)NonAf 122.26 POC Glucometer Random Glucose 86 Calcium 8.6 Ferritin 560.8 H Total Bilirubin 0.6 AST 18 ALT 28 Alkaline Phosphatase 68 LD Total 465 H C-Reactive Protein 3.4 H Total Protein 5.8 L Albumin 2.6 L 03/02/20 03/02/20 11:05 11:35 WBC RBC Hgb Hct MCV MCH MCHC RDW Plt Count MPV Anticoagulation Therapy No Result Required. Puncture Site Right radial ABG pH 7.44 ABG pCO2 at Pt Temp 45.8 H ABG pO2 at Pt Temp 171.8 H ABG HCO3 30.5 H ABG O2 Sat (Measured) 99.2 H ABG O2 Content No Result Required. ABG Base Excess 5.7 H Rehan Test Positive Patient On Oxygen Yes O2 Delivery Device No Result Required. Oxygen Flow Rate 100 Vent Mode No Result Required. Vent Rate No Result Required. Mechanical Rate No Result Required. Pressure Support Vent No Result Required. Sodium Potassium Chloride Carbon Dioxide Anion Gap BUN Creatinine Est GFR (CKD-EPI)AfAm Est GFR (CKD-EPI)NonAf POC Glucometer 152 Random Glucose Calcium Ferritin Total Bilirubin AST ALT Alkaline Phosphatase LD Total C-Reactive Protein Total Protein Albumin Active Medications Generic Name Dose Route Start Last Admin Trade Name Freq PRN Reason Stop Dose Admin Acetaminophen 650 mg 03/01/20 15:34 Tylenol - PO Q6H PRN FEVER Acetaminophen/Butalbital/Caffeine 1 tablet 03/01/20 15:34 Fioricet - PO Q6H PRN HEADACHE Albuterol Sulfate 1 puff 03/01/20 15:34 Ventolin Hfa Inhaler - IH Q4H PRN SHORT OF BREATH/WHEEZING Alprazolam 0.5 mg 03/01/20 15:34 Xanax - PO Q12H PRN ANXIETY Apixaban 5 mg 03/01/20 22:00 03/02/20 10:24 Eliquis - PO 5 mg BID SARAH Administration Ascorbic Acid 500 mg 03/01/20 22:00 03/02/20 10:24 Vitamin C - PO 500 mg BID SARAH Administration Aspirin 81 mg 03/02/20 10:00 03/02/20 10:24 Asa - PO 81 mg DAILY SARAH Administration Atorvastatin Calcium 40 mg 03/01/20 22:00 03/01/20 21:08 Lipitor - PO 40 mg HS SARAH Administration Benzocaine/Menthol 1 each 03/01/20 10:20 03/01/20 10:35 Cepacol Lozenge - MM 1 each Q4H PRN Administration SORE THROAT Budesonide/Formoterol Fumarate 2 puff 03/01/20 22:00 03/02/20 10:24 Symbicort 80/4.5mcg - IH 2 puff BID SARAH Administration Cholecalciferol 2,000 unit 03/02/20 10:00 03/02/20 10:24 Vitamin D3 - PO 2,000 unit DAILY SARAH Administration Clotrimazole 1 applic 03/01/20 22:00 03/02/20 12:54 Lotrimin 1% Cream - TP Not Given BID SARAH Dexamethasone Sodium Phosphate 8 mg 03/02/20 15:00 03/02/20 15:09 Decadron Injection - IVPUSH 03/04/20 02:01 8 mg Q8H-IV SARAH Administration Guaifenesin/Codeine Phosphate 10 ml 03/02/20 12:15 03/02/20 12:51 Robitussin Ac - PO 10 ml Q4H SARAH Administration Insulin Aspart 1 vial 03/01/20 16:30 03/02/20 12:52 Novolog Vial Sliding Scale - SQ 2 units ACHS SARAH Administration Protocol Insulin Detemir 20 units 03/02/20 11:43 Levemir Vial SQ ACBK SARAH Insulin Detemir 15 units 03/02/20 22:00 Levemir Vial SQ HS SARAH Melatonin 5 mg 03/01/20 22:00 03/01/20 21:08 Melatonin PO 5 mg HS PRN Administration INSOMNIA Zinc Sulfate 220 mg 03/01/20 22:00 03/02/20 10:24 Orazinc - PO 220 mg BID SARAH Administration ASSESSMENT/PLAN: 34M with HTN (no home meds) and newly diagnosed DM on this admission. He was admitted 01/24 after he presented with 3-4 days of increasing dyspnea and diarrhea after testing positive for COVID. #COVID 19 Pneumonia - Completed abx, remdesivir course, tocilizumab infusion, convalescent plasma transfusion - SpO2 in low 90s on NRB, desats to late 70s, early 80s during exertion - CTA ordered, pt desatting this morning so will defer once pt can safely be transported downstairs - Last dose of Prednisone 5mg taper today - Eliquis 5mg BID - Vitamin C, Vitamin D, Zinc - COVID (02/27) NEG # Atypical Chest Pain - Resolved, likely 2/2 excessive coughing - Robitussin increased to Q4H - ACS ruled out: TNI neg x2; EKG showed NSR, no acute ischemic changes - Cont Lipitor 40 HS, started on Losartan 25 - Plan for ECHO and MIBI when feasible with outpatient Cardio F/U with Dr. Rossi #Hx of HTN - Started on Losartan here, holding for now due to low BP - Resume Losartan if JUS starts to rise again # Headache - Started on Fioricet Q6H #Newly diagnosed DM - HbA1c 10.5 - BGM/ISS ACHS; goal BG 140-180 - Levemir 40 AM + 35 PM with Novolog ISS #Newly diagnosed HLD - Chol 204, LDL 122, HDL 62 - Lipitor 40 HS #FEN - PO hydration - DM diet #DVT PP - On Eliquis 5 mg BID #Dispo - Will monitor on M?S - Plan to down titrate from NRB and eventually transfer to LTAC once clinically feasible Visit type - Emergency Visit Emergency Visit: Yes ED Registration Date: 01/25/20 Care time: The patient presented to the Emergency Department on the above date and was hospitalized for further evaluation of their emergent condition. - New Patient This patient is new to me today: No - Critical Care Critical Care patient: No ATTENDING PHYSICIAN STATEMENT I saw and evaluated the patient. I reviewed the resident's note and discussed the case with the resident. I agree with the resident's findings and plan as documented. SUBJECTIVE: OBJECTIVE: ASSESSMENT AND PLAN:
--- NOTE | 2020-03-02 16:34 | PN ---
Progress Note, Physician History of Present Illness: 34 Y/O M with PMHx of DM II, Acute Hypoxic Resp Failure 2/2 COVID-19 in the sett ing of Morbid Obesity and Likely REYNALDO /OHS s/p Remdesivir and Tocilzumad, convalescent plasma transfusion , ICU monitoring during this admission without intubation, now on NRB. Today: Patient seen and examined at bedside in mild distress Pt unable to speak and conversate regularly due to coughing fits States he has been relatively the same for the recent weeks C/O coughing fits that cause him to become hypoxic Nurse at bedside. - Current Medication List Current Medications: Active Medications Acetaminophen (Tylenol -) 650 mg PO Q6H PRN PRN Reason: FEVER Acetaminophen/Butalbital/Caffeine (Fioricet -) 1 tablet PO Q6H PRN PRN Reason: HEADACHE Albuterol Sulfate (Ventolin Hfa Inhaler -) 1 puff IH Q4H PRN PRN Reason: SHORT OF BREATH/WHEEZING Alprazolam (Xanax -) 0.5 mg PO Q12H PRN PRN Reason: ANXIETY Apixaban (Eliquis -) 5 mg PO BID [facility] Last Admin: 03/02/20 10:24 Dose: 5 mg Documented by: Ascorbic Acid (Vitamin C -) 500 mg PO BID [facility] Last Admin: 03/02/20 10:24 Dose: 500 mg Documented by: Aspirin (Asa -) 81 mg PO DAILY [facility] Last Admin: 03/02/20 10:24 Dose: 81 mg Documented by: Atorvastatin Calcium (Lipitor -) 40 mg PO HS [facility] Last Admin: 03/01/20 21:08 Dose: 40 mg Documented by: Benzocaine/Menthol (Cepacol Lozenge -) 1 each MM Q4H PRN PRN Reason: SORE THROAT Last Admin: 03/01/20 10:35 Dose: 1 each Documented by: Budesonide/Formoterol Fumarate (Symbicort 80/4.5mcg -) 2 puff IH BID [facility] Last Admin: 03/02/20 10:24 Dose: 2 puff Documented by: Cholecalciferol (Vitamin D3 -) 2,000 unit PO DAILY [facility] Last Admin: 03/02/20 10:24 Dose: 2,000 unit Documented by: Clotrimazole (Lotrimin 1% Cream -) 1 applic TP BID [facility] Last Admin: 03/02/20 12:54 Dose: Not Given Documented by: Dexamethasone Sodium Phosphate (Decadron Injection -) 8 mg IVPUSH Q8H-IV [facility] Stop: 03/04/20 02:01 Last Admin: 03/02/20 15:09 Dose: 8 mg Documented by: Guaifenesin/Codeine Phosphate (Robitussin Ac -) 10 ml PO Q4H [facility] Last Admin: 03/02/20 12:51 Dose: 10 ml Documented by: Insulin Aspart (Novolog Vial Sliding Scale -) 1 vial SQ ACHS [facility]; Protocol Last Admin: 03/02/20 12:52 Dose: 2 units Documented by: Insulin Detemir (Levemir Vial) 20 units SQ ACBK [facility] Insulin Detemir (Levemir Vial) 15 units SQ HS [facility] Melatonin (Melatonin) 5 mg PO HS PRN PRN Reason: INSOMNIA Last Admin: 03/01/20 21:08 Dose: 5 mg Documented by: Zinc Sulfate (Orazinc -) 220 mg PO BID [facility] Last Admin: 03/02/20 10:24 Dose: 220 mg Documented by: - Objective Vital Signs: Vital Signs Temperature 98.3 F 03/02/20 15:00 Pulse Rate 80 03/02/20 15:00 Respiratory Rate 22 H 03/02/20 15:00 Blood Pressure 134/76 03/02/20 15:00 O2 Sat by Pulse Oximetry (%) 99 03/02/20 11:30 Constitutional: Yes: Well Nourished Cardiovascular: Yes: Regular Rate and Rhythm Respiratory: Yes: Diminished, Poor Air Entry (poor effort) Gastrointestinal: Yes: Soft, Abdomen, Obese Edema: No Labs: CBC, BMP 03/02/20 06:20 03/02/20 06:20 INR, PTT INR 1.00 (0.83-1.09) 01/25/20 16:29 Fibrinogen 468.0 mg/dL (238-498) 02/25/20 13:05 Impression/Plan Impression/Plan: 34 Y/O M with PMHx of DM II, Acute Hypoxic Resp Failure 2/2 COVID-19 in the setting of Morbid Obesity and Likely REYNALDO /OHS s/p Remdesivir and Tocilzumad, convalescent plasma transfusion , ICU monitoring during this admission without intubation, now on NRB. VS: Afeb HR 80-90 BP WNL 97-99% on NRB 15 L Labs: No leukocytosis H/H 9.8/30 BUN/Creat 11/0.7 LDH: 560 ALP 465 CRP 3.4 AB.44/45/171 (Prior CO2 50s) Acute Hypoxic Resp Failure 2/2 COVID-19 in the setting of Morbid Obesity and Likely REYNALDO /OHS s/p Remdesivir and Tocilzumad, convalescent plasma transfusion Pulm recs appreciated BiPAP at night On NRB 15 L/min ABG repeated CO2 improved 50 to 45 Po2 171 Will attempt to decrease flow rate of NRB Ferritin and LDH Flat trend Trend LDH, CRP, ESR, Ferritin, Agree with CTA Is on full dose AC with Eliquis 5 mg BID Decadron 8 mg IVP q 8 per pulm recs Symbicort 2 puff BID 80/4.5mcg Guaifensin/codeine 10 ml PO Q 4 hr Ventolin 1 puff q 4 hr PNR dyspnea Cepacol, Zinc 220 mg BID, Vit C 500 mg BID,Vit D 3 2000 UNITS pod daily Will need Pulmonary follow up as o/p with PFT/Sleep study DM II On steroids see above Detemir 20 units SQ and 15 units SQ ISS ASA 81 mg primary prevention Lipitor 40 mg QHS Atypical Chest pain HTN Trop x 3 neg Cardio recs appreciated TTE- LV function Nl, study technically diffiuclt with suboptimal images BP was borderline- on Losartan will hold for now and restart when BP better Needs MPI in future Supp care: DVT Px- Eliquis 5 mg BID GI px- Protonix 40 mg daily Diet-Diabetic diet Visit type - Emergency Visit Emergency Visit: Yes ED Registration Date: 01/25/20 Care time: The patient presented to the Emergency Department on the above date and was hospitalized for further evaluation of their emergent condition. - New Patient This patient is new to me today: Yes Date on this admission: 03/02/20 - Critical Care Critical Care patient: No - Discharge Referral Referred to [facility] Med P.C.: No
[2020-03-02] MEDS: ATORVASTATIN CA 40 MG TABLET (FP) PO SCH (22:01)
[2020-03-02] MEDS: INSULIN (LEVEMIR) 100 UNITS/ML UNITS SQ SCH (22:08)
[2020-03-02] MEDS: MELATONIN 5 MG TABLETS PO PRN (22:20)
--- NOTE | 2020-03-03 01:26 | PN ---
Progress Note, Physician Chief Complaint: Pt A&Ox3;remains on BIPAP; no chest pain; less dyspnea. History of Present Illness: 34yo black man with morbid obesity, DM, hyperlipidemia, ?sleep apnea, recent COVID positive test, presents to the ED with shortness of breath and extreme fatigue. Recently on azithromycin course without relief. Saturating at 98% on room air, placed on 2L nasal cannula upon arrival with symp tomatic relief. Patient has been progressively short of breath since diagnosis. Called because pt c/o strong, sharp left breast pain that began today at rest, lasted about an hour. Pt says he had had a similar pain, though less severe and of shorter duration while in the ICU. Pt denies personal or family hx of heart disease; his father has DM. Pt never smoked; does not drink to excess. 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 - Current Medication List Current Medications: Active Medications Acetaminophen (Tylenol -) 650 mg PO Q6H PRN PRN Reason: FEVER Acetaminophen/Butalbital/Caffeine (Fioricet -) 1 tablet PO Q6H PRN PRN Reason: HEADACHE Albuterol Sulfate (Ventolin Hfa Inhaler -) 1 puff IH Q4H PRN PRN Reason: SHORT OF BREATH/WHEEZING Alprazolam (Xanax -) 0.5 mg PO Q12H PRN PRN Reason: ANXIETY Apixaban (Eliquis -) 5 mg PO BID [facility] Last Admin: 03/02/20 22:01 Dose: 5 mg Documented by: Ascorbic Acid (Vitamin C -) 500 mg PO BID [facility] Last Admin: 03/02/20 22:01 Dose: 500 mg Documented by: Aspirin (Asa -) 81 mg PO DAILY [facility] Last Admin: 03/02/20 10:24 Dose: 81 mg Documented by: Atorvastatin Calcium (Lipitor -) 40 mg PO HS [facility] Last Admin: 03/02/20 22:01 Dose: 40 mg Documented by: Benzocaine/Menthol (Cepacol Lozenge -) 1 each MM Q4H PRN PRN Reason: SORE THROAT Last Admin: 03/01/20 10:35 Dose: 1 each Documented by: Budesonide/Formoterol Fumarate (Symbicort 80/4.5mcg -) 2 puff IH BID [facility] Last Admin: 03/02/20 22:02 Dose: 2 puff Documented by: Cholecalciferol (Vitamin D3 -) 2,000 unit PO DAILY [facility] Last Admin: 03/02/20 10:24 Dose: 2,000 unit Documented by: Clotrimazole (Lotrimin 1% Cream -) 1 applic TP BID [facility] Last Admin: 03/02/20 22:07 Dose: Not Given Documented by: Dexamethasone Sodium Phosphate (Decadron Injection -) 8 mg IVPUSH Q8H-IV [facility] Stop: 03/04/20 02:01 Last Admin: 03/02/20 18:38 Dose: 8 mg Documented by: Guaifenesin/Codeine Phosphate (Robitussin Ac -) 10 ml PO Q4H [facility] Last Admin: 03/02/20 23:17 Dose: 10 ml Documented by: Insulin Aspart (Novolog Vial Sliding Scale -) 1 vial SQ [facility]; Protocol Last Admin: 03/02/20 22:09 Dose: 8 units Documented by: Insulin Detemir (Levemir Vial) 20 units SQ ACBK [facility] Insulin Detemir (Levemir Vial) 15 units SQ HS [facility] Last Admin: 03/02/20 22:08 Dose: 15 units Documented by: Melatonin (Melatonin) 5 mg PO HS PRN PRN Reason: INSOMNIA Last Admin: 03/02/20 22:20 Dose: 5 mg Documented by: Zinc Sulfate (Orazinc -) 220 mg PO BID [facility] Last Admin: 03/02/20 22:04 Dose: 220 mg Documented by: - Objective Vital Signs: Vital Signs Temperature 98.2 F 03/02/20 23:00 Pulse Rate 88 03/02/20 23:00 Respiratory Rate 26 H 03/02/20 23:00 Blood Pressure 120/67 03/02/20 23:00 O2 Sat by Pulse Oximetry (%) 100 03/02/20 23:32 Constitutional: Yes: Calm, Obese Eyes: Yes: WNL Neck: Yes: WNL Cardiovascular: Yes: S1, S2, S4 Respiratory: Yes: Diminished, SOB on Exertion, Tachypnea Gastrointestinal: Yes: Soft, Abdomen, Obese ...Rectal Exam: Yes: Deferred Genitourinary: No: Anuria Musculoskeletal: Yes: Joint Stiffness, Muscle Weakness Extremities: Yes: Cool Edema: No Peripheral Pulses WNL: Yes Integumentary: Yes: WNL Neurological: Yes: Alert, Oriented, Weakness Psychiatric: Yes: WNL Labs: CBC, BMP 03/02/20 06:20 03/02/20 06:20 INR, PTT INR 1.00 (0.83-1.09) 01/25/20 16:29 Fibrinogen 468.0 mg/dL (238-498) 02/25/20 13:05 Abnormal Lab Results 03/02/20 03/02/20 03/02/20 06:20 06:20 06:20 RBC 3.98 L Hgb 9.8 L Hct 30.5 L MCV 76.6 L MCH 24.7 L RDW 17.4 H ABG pCO2 at Pt Temp ABG pO2 at Pt Temp ABG HCO3 ABG O2 Sat (Measured) ABG Base Excess Carbon Dioxide 37 H Anion Gap 3 L Ferritin 560.8 H LD Total 465 H C-Reactive Protein 3.4 H Total Protein 5.8 L Albumin 2.6 L 03/02/20 11:05 RBC Hgb Hct MCV MCH RDW ABG pCO2 at Pt Temp 45.8 H ABG pO2 at Pt Temp 171.8 H ABG HCO3 30.5 H ABG O2 Sat (Measured) 99.2 H ABG Base Excess 5.7 H Carbon Dioxide Anion Gap Ferritin LD Total C-Reactive Protein Total Protein Albumin - ....Imaging Chest X-ray: Image Reviewed EKG: Image Reviewed Assessment/Plan COVID pneumonia ARDS Hyperlipidemia DM Morbid Obesity Atypical chest pain Plan: COVID not detected (02/28/20) Bronchodilators, O2, steroids, and antibiotics per claims service adjustor. TNI < 0.02 x 2 EKG:NSR; no acute changes LDL cholesterol 122 mg/dL; keep < 70 mg;dL with statin, diet change. On apixaban for anticoagulation. BUN/Cr, electrolytes, daily weight, Is and Os. ECHO for LVEF, wall motion, valve status. Now on losartan (HTN; diastolic dysfunction; DM). Plan on stress MIBI, due to multiple CAD risks, when stable.
[2020-03-03] MEDS: DEXAMETHASONE SOD PHOSPHATE 4 MG/1 ML VIAL IVPUSH SCH ×3 (01:30→17:30)
[2020-03-03] MEDS: guaiFENesin/CODEINE 10 ML UNIT-DOSE CUPS PO SCH ×5 (03:39→21:49)
[2020-03-03] MEDS: INSULIN SLIDING SCALE (NOVOLOG) 1 VIAL SQ SCH ×4 (06:24→21:49)
[2020-03-03] MEDS ORDERED: PT OWN MED DRAWER 7, Y5N ONE (09:09)
[2020-03-03 09:35] LABS: BASO % 0.3 % (0-2.0); HEMATOCRIT 32.9 % (35.4-49); HEMOGLOBIN 10.3 GM/dL (11.7-16.9); LYMPH % 17.9 % (8-40); MCH 24.1 pg (25.7-33.7); MCHC 31.2 g/dl (32.0-35.9); MEAN CELL VOLUME 77.4 fl (80-96); MONO % 3.5 % (3.8-10.2); NEUT % 78.3 % (42.8-82.8); PLATELET COUNT 294 K/MM3 (134-434); RBC 4.26 M/mm3 (4.00-5.60); RDW 17.4 % (11.9-15.9); WHITE BLOOD COUNT 6.8 K/mm3 (4.0-10.0)
[2020-03-03] MEDS: ASPIRIN 81 MG CHEWABLE TABLETS PO SCH (09:41)
[2020-03-03] MEDS: CLOTRIMAZOLE 1% CREAM 15 GM TUBE TP SCH ×2 (09:42→21:49)
[2020-03-03] MEDS: CHOLECALCIFEROL (VIT D3) 1,000 UNIT (25 MCG) TABLET PO SCH (09:42)
[2020-03-03] MEDS: ZINC SULFATE 220 MG CAPSULE (FP) PO SCH ×2 (09:42→21:55)
[2020-03-03] MEDS: ASCORBIC ACID 500 MG TABLET (FP) PO SCH ×2 (09:42→21:41)
[2020-03-03] MEDS: APIXABAN 5 MG TABLET PO SCH ×2 (09:42→21:41)
[2020-03-03] MEDS: BUDESONIDE/FORMETEROL FUMARATE 80/4.5 mcg INHALER IH SCH ×2 (09:48→21:56)
[2020-03-03 10:09] LABS: ALBUMIN 2.8 g/dl (3.4-5.0); BLOOD UREA NITROGEN 13.5 mg/dL (7-18); CALCIUM 9.2 mg/dL (8.5-10.1); CREATININE 0.7 mg/dL (0.55-1.3); MAGNESIUM 2.1 mg/dL (1.8-2.4); PHOSPHOROUS 3.7 mg/dL (2.5-4.9); POTASSIUM 4.7 mmol/L (3.5-5.1)
[2020-03-03 10:11] LABS: BILIRUBIN,TOTAL 0.6 mg/dL (0.2-1); TOT PROT 6.5 g/dl (6.4-8.2)
--- NOTE | 2020-03-03 12:07 | PN ---
Progress Note (short form) - Note Progress Note: PULMONARY Remains on BiPAP with 90% FiO2. States cough is improving on decadron and standing robitussin. Vital Signs Period Temp Pulse Resp BP Sys/Miner Pulse Ox Last 24 Hr 98.2 F-98.7 F 73-92 22-26 97-134/51-76 97-100 Gen: less cough Heart: RRR Lung: bibasilar rales Abd: soft, nontender Ext: no edema CBC, BMP 03/03/20 07:55 03/03/20 07:55 Active Medications Acetaminophen (Tylenol -) 650 mg PO Q6H PRN PRN Reason: FEVER Acetaminophen/Butalbital/Caffeine (Fioricet -) 1 tablet PO Q6H PRN PRN Reason: HEADACHE Albuterol Sulfate (Ventolin Hfa Inhaler -) 1 puff IH Q4H PRN PRN Reason: SHORT OF BREATH/WHEEZING Alprazolam (Xanax -) 0.5 mg PO Q12H PRN PRN Reason: ANXIETY Apixaban (Eliquis -) 5 mg PO BID [facility] Last Admin: 03/03/20 09:42 Dose: 5 mg Documented by: Ascorbic Acid (Vitamin C -) 500 mg PO BID [facility] Last Admin: 03/03/20 09:42 Dose: 500 mg Documented by: Aspirin (Asa -) 81 mg PO DAILY [facility] Last Admin: 03/03/20 09:41 Dose: 81 mg Documented by: Atorvastatin Calcium (Lipitor -) 40 mg PO HS [facility] Last Admin: 03/02/20 22:01 Dose: 40 mg Documented by: Benzocaine/Menthol (Cepacol Lozenge -) 1 each MM Q4H PRN PRN Reason: SORE THROAT Last Admin: 03/01/20 10:35 Dose: 1 each Documented by: Budesonide/Formoterol Fumarate (Symbicort 80/4.5mcg -) 2 puff IH BID [facility] Last Admin: 03/03/20 09:48 Dose: 2 puff Documented by: Cholecalciferol (Vitamin D3 -) 2,000 unit PO DAILY [facility] Last Admin: 03/03/20 09:42 Dose: 2,000 unit Documented by: Clotrimazole (Lotrimin 1% Cream -) 1 applic TP BID [facility] Last Admin: 03/03/20 09:42 Dose: Not Given Documented by: Dexamethasone Sodium Phosphate (Decadron Injection -) 8 mg IVPUSH Q8H-IV [facility] Stop: 03/04/20 02:01 Last Admin: 03/03/20 09:41 Dose: 8 mg Documented by: Guaifenesin/Codeine Phosphate (Robitussin Ac -) 10 ml PO Q4H [facility] Last Admin: 03/03/20 09:41 Dose: 10 ml Documented by: Insulin Aspart (Novolog Vial Sliding Scale -) 1 vial SQ ACHS [facility]; Protocol Last Admin: 03/03/20 11:47 Dose: 4 units Documented by: Insulin Detemir (Levemir Vial) 20 units SQ ACBK [facility] Last Admin: 03/03/20 06:23 Dose: 20 units Documented by: Insulin Detemir (Levemir Vial) 15 units SQ HS [facility] Last Admin: 03/02/20 22:08 Dose: 15 units Documented by: Melatonin (Melatonin) 5 mg PO HS PRN PRN Reason: INSOMNIA Last Admin: 03/02/20 22:20 Dose: 5 mg Documented by: Zinc Sulfate (Orazinc -) 220 mg PO BID [facility] Last Admin: 03/03/20 09:42 Dose: 220 mg Documented by: A/P Acute Hypoxic Respiratory Failure COVID Pneumonia ARDS HTN DM Anemia - s/p remdesivir course - s/p tocilizumab infusion - s/p convalescent plasma transfusion - continue decadron same dose - cough suppressants - continue anticoagulation - completed empiric antibiotics - trend ferritin, LDH, CRP - O2 to keep SpO2 >90% - BiPAP at night
--- NOTE | 2020-03-03 14:57 | PN ---
Progress Note, Physician History of Present Illness: 34 Y/O M Adm w/ Acute Hypoxic Resp Failure 2/2 COVID-19 in the setting of Morbid Obesity and Likely REYNALDO /OHS s/p Remdesivir and Tocil, convalescent plasma transfusion , ICU monitoring during this admission without intubation, now on NRB. Today: Patient seen and examined at bedside in mild distress Pt coughing fits have improved. Today on BiPAP and attempts to wean off NRB unsuccessful Has severe hoarseness - Current Medication List Current Medications: Active Medications Acetaminophen (Tylenol -) 650 mg PO Q6H PRN PRN Reason: FEVER Acetaminophen/Butalbital/Caffeine (Fioricet -) 1 tablet PO Q6H PRN PRN Reason: HEADACHE Albuterol Sulfate (Ventolin Hfa Inhaler -) 1 puff IH Q4H PRN PRN Reason: SHORT OF BREATH/WHEEZING Alprazolam (Xanax -) 0.5 mg PO Q12H PRN PRN Reason: ANXIETY Apixaban (Eliquis -) 5 mg PO BID [facility] Last Admin: 03/03/20 09:42 Dose: 5 mg Documented by: Ascorbic Acid (Vitamin C -) 500 mg PO BID [facility] Last Admin: 03/03/20 09:42 Dose: 500 mg Documented by: Aspirin (Asa -) 81 mg PO DAILY [facility] Last Admin: 03/03/20 09:41 Dose: 81 mg Documented by: Atorvastatin Calcium (Lipitor -) 40 mg PO HS [facility] Last Admin: 03/02/20 22:01 Dose: 40 mg Documented by: Benzocaine/Menthol (Cepacol Lozenge -) 1 each MM Q4H PRN PRN Reason: SORE THROAT Last Admin: 03/01/20 10:35 Dose: 1 each Documented by: Budesonide/Formoterol Fumarate (Symbicort 80/4.5mcg -) 2 puff IH BID [facility] Last Admin: 03/03/20 09:48 Dose: 2 puff Documented by: Cholecalciferol (Vitamin D3 -) 2,000 unit PO DAILY [facility] Last Admin: 03/03/20 09:42 Dose: 2,000 unit Documented by: Clotrimazole (Lotrimin 1% Cream -) 1 applic TP BID [facility] Last Admin: 03/03/20 09:42 Dose: Not Given Documented by: Dexamethasone Sodium Phosphate (Decadron Injection -) 8 mg IVPUSH Q8H-IV [facility] Stop: 03/04/20 02:01 Last Admin: 03/03/20 09:41 Dose: 8 mg Documented by: Guaifenesin/Codeine Phosphate (Robitussin Ac -) 10 ml PO Q4H [facility] Last Admin: 03/03/20 13:02 Dose: 10 ml Documented by: Insulin Aspart (Novolog Vial Sliding Scale -) 1 vial SQ ACHS [facility]; Protocol Last Admin: 03/03/20 11:47 Dose: 4 units Documented by: Insulin Aspart (Novolog) 2 units SQ [facility] Insulin Detemir (Levemir Vial) 15 units SQ HS [facility] Last Admin: 03/02/20 22:08 Dose: 15 units Documented by: Insulin Detemir (Levemir Vial) 25 units SQ ACBK [facility] Melatonin (Melatonin) 5 mg PO HS PRN PRN Reason: INSOMNIA Last Admin: 03/02/20 22:20 Dose: 5 mg Documented by: Pantoprazole Sodium (Protonix -) 40 mg PO DAILY [facility] Zinc Sulfate (Orazinc -) 220 mg PO BID [facility] Last Admin: 03/03/20 09:42 Dose: 220 mg Documented by: - Objective Vital Signs: Vital Signs Temperature 97.4 F L 03/03/20 14:40 Pulse Rate 78 03/03/20 14:40 Respiratory Rate 24 H 03/03/20 14:40 Blood Pressure 111/61 03/03/20 14:40 O2 Sat by Pulse Oximetry (%) 100 03/03/20 10:00 Constitutional: Yes: Mild Distress, Obese Cardiovascular: Yes: WNL Respiratory: Yes: Diminished, Poor Air Entry, Other (poor effort) Gastrointestinal: Yes: Normal Bowel Sounds, Soft, Abdomen, Obese Extremities: Yes: WNL Edema: No Labs: CBC, BMP 03/03/20 07:55 03/03/20 07:55 INR, PTT INR 1.00 (0.83-1.09) 01/25/20 16:29 Fibrinogen 468.0 mg/dL (238-498) 02/25/20 13:05 Impression/Plan Impression/Plan: 34 Y/O M Adm w/Acute Hypoxic Resp Failure 2/2 COVID-19 in the setting of Morbid Obesity and Likely REYNALDO /OHS s/p Remdesivir and Tocilzumad, convalescent plasma transfusion , ICU monitoring during this admission without intubation, now on NRB. VS: Afeb HR 80-90 BP WNL 97-99% on NRB 15 L Labs: No leukocytosis LDH: 560 LDH 465 CRP 3.4 AB/5 7.44/45/171 (Prior CO2 50s) Acute Hypoxic Resp Failure 2/2 COVID-19 in the setting of Morbid Obesity and Likely REYNALDO /OHS LDH: 560 LDH 465 CRP 3.4 No new labs - obtain markers with next draw Still on NRB 15 L /min and BiPAP s/p Remdesivir and Tocilzumad, convalescent plasma transfusion Pulm recs appreciated BiPAP at night On NRB 15 L/min ABG repeated CO2 improved 50 to 45 Po2 171 Will attempt to decrease flow rate of NRB Ferritin and LDH Flat trend Trend LDH, CRP, ESR, Ferritin, Agree with CTA delayed for when resp status more stable as pt likely cannot lay flat right now Is on full dose AC with Eliquis 5 mg BID Decadron 8 mg IVP q 8 per pulm recs Symbicort 2 puff BID 80/4.5mcg Guaifensin/codeine 10 ml PO Q 4 hr Ventolin 1 puff q 4 hr PNR dyspnea Cepacol, Zinc 220 mg BID, Vit C 500 mg BID,Vit D 3 2000 UNITS pod daily Will need Pulmonary follow up as o/p with PFT/Sleep study DM II-Newly Dx Obtain HbA1C On steroids see above Detemir 20 units SQ AM and 15 units SQ PM will increase AM to 25 am As FS range >200 Novolog 2 units TID W/Meals initiated ISS ASA 81 mg primary prevention Lipitor 40 mg QHS Atypical Chest pain HTN Trop x 3 neg Cardio recs appreciated TTE- LV function Nl, study technically diffiuclt with suboptimal images BP was borderline- on Losartan will hold for now and restart when BP better Needs MPI in future Supp care: DVT Px- Eliquis 5 mg BID GI px- Protonix 40 mg daily Diet-Diabetic diet Visit type - Emergency Visit Emergency Visit: Yes ED Registration Date: 01/25/20 Care time: The patient presented to the Emergency Department on the above date and was hospitalized for further evaluation of their emergent condition. - New Patient This patient is new to me today: No - Critical Care Critical Care patient: No - Discharge Referral Referred to [facility] Med P.C.: No
--- NOTE | 2020-03-03 16:30 | PN ---
Physical Exam: SUBJECTIVE: Patient seen and examined at the bedside, seated and SOB OBJECTIVE: Vital Signs Period Temp Pulse Resp BP Sys/Miner Pulse Ox Last 24 Hr 97.4 F-98.7 F 73-92 24-26 97-120/51-68 97-100 GENERAL: AOx3 HEAD: Normal with no signs of trauma. EYES: PERRL, extraocular movements intact, sclera anicteric, conjunctiva clear. No ptosis. NECK: Trachea midline, full range of motion, supple. LUNGS: On NRB. Decreased air entry throughout. Symmetric chest rise. HEART: RRR. Normal S1, S2. No murmurs noted. ABDOMEN: Obese. Soft, nontender, obese, no guarding, no rebound, no hepatosplenomegaly, no masses. EXTREMITIES: 2+ pulses, warm, well-perfused, no edema. NEUROLOGICAL: Cranial nerves II through XII grossly intact. Normal speech, gait not observed. Laboratory Results - last 24 hr 03/02/20 03/02/20 03/03/20 16:49 22:05 06:21 WBC RBC Hgb Hct MCV MCH MCHC RDW Plt Count MPV Absolute Neuts (auto) Neutrophils % Lymphocytes % Monocytes % Eosinophils % Basophils % Nucleated RBC % Sodium Potassium Chloride Carbon Dioxide Anion Gap BUN Creatinine Est GFR (CKD-EPI)AfAm Est GFR (CKD-EPI)NonAf POC Glucometer 145 320 284 Random Glucose Calcium Phosphorus Magnesium Total Bilirubin AST ALT Alkaline Phosphatase Total Protein Albumin 03/03/20 03/03/20 03/03/20 07:55 07:55 11:45 WBC 6.8 RBC 4.26 Hgb 10.3 L Hct 32.9 L MCV 77.4 L MCH 24.1 L MCHC 31.2 L RDW 17.4 H Plt Count 294 MPV 9.0 Absolute Neuts (auto) 5.3 Neutrophils % 78.3 D Lymphocytes % 17.9 D Monocytes % 3.5 L Eosinophils % 0.0 D Basophils % 0.3 Nucleated RBC % 0 Sodium 136 Potassium 4.7 Chloride 98 Carbon Dioxide 33 H Anion Gap 5 L BUN 13.5 Creatinine 0.7 Est GFR (CKD-EPI)AfAm 141.70 Est GFR (CKD-EPI)NonAf 122.26 POC Glucometer 236 Random Glucose 264 H Calcium 9.2 Phosphorus 3.7 Magnesium 2.1 Total Bilirubin 0.6 AST 12 L ALT 30 Alkaline Phosphatase 90 Total Protein 6.5 Albumin 2.8 L Active Medications Generic Name Dose Route Start Last Admin Trade Name Freq PRN Reason Stop Dose Admin Acetaminophen 650 mg 03/01/20 15:34 Tylenol - PO Q6H PRN FEVER Acetaminophen/Butalbital/Caffeine 1 tablet 03/01/20 15:34 Fioricet - PO Q6H PRN HEADACHE Albuterol Sulfate 1 puff 03/01/20 15:34 Ventolin Hfa Inhaler - IH Q4H PRN SHORT OF BREATH/WHEEZING Alprazolam 0.5 mg 03/01/20 15:34 Xanax - PO Q12H PRN ANXIETY Apixaban 5 mg 03/01/20 22:00 03/03/20 09:42 Eliquis - PO 5 mg BID SARAH Administration Ascorbic Acid 500 mg 03/01/20 22:00 03/03/20 09:42 Vitamin C - PO 500 mg BID SARAH Administration Aspirin 81 mg 03/02/20 10:00 03/03/20 09:41 Asa - PO 81 mg DAILY SARAH Administration Atorvastatin Calcium 40 mg 03/01/20 22:00 03/02/20 22:01 Lipitor - PO 40 mg HS [facility] Administration Benzocaine/Menthol 1 each 03/01/20 10:20 03/01/20 10:35 Cepacol Lozenge - MM 1 each Q4H PRN Administration SORE THROAT Budesonide/Formoterol Fumarate 2 puff 03/01/20 22:00 03/03/20 09:48 Symbicort 80/4.5mcg - IH 2 puff BID SARAH Administration Cholecalciferol 2,000 unit 03/02/20 10:00 03/03/20 09:42 Vitamin D3 - PO 2,000 unit DAILY [facility] Administration Clotrimazole 1 applic 03/01/20 22:00 03/03/20 09:42 Lotrimin 1% Cream - TP Not Given BID [facility] Dexamethasone Sodium Phosphate 8 mg 03/02/20 15:00 03/03/20 09:41 Decadron Injection - IVPUSH 03/04/20 02:01 8 mg Q8H-IV SARAH Administration Guaifenesin/Codeine Phosphate 10 ml 03/02/20 12:15 03/03/20 13:02 Robitussin Ac - PO 10 ml Q4H SARAH Administration Insulin Aspart 1 vial 03/01/20 16:30 03/03/20 11:47 Novolog Vial Sliding Scale - SQ 4 units ACHS SARAH Administration Protocol Insulin Aspart 2 units 03/03/20 16:30 Novolog SQ TIDAC SARAH Insulin Detemir 15 units 03/02/20 22:00 03/02/20 22:08 Levemir Vial SQ 15 units HS SARAH Administration Insulin Detemir 25 units 03/04/20 07:00 Levemir Vial SQ ACBK SARAH Melatonin 5 mg 03/01/20 22:00 03/02/20 22:20 Melatonin PO 5 mg HS PRN Administration INSOMNIA Pantoprazole Sodium 40 mg 03/04/20 10:00 Protonix - PO DAILY SARAH Zinc Sulfate 220 mg 03/01/20 22:00 03/03/20 09:42 Orazinc - PO 220 mg BID SARAH Administration ASSESSMENT/PLAN: 34M with HTN (no home meds) and newly diagnosed DM on this admission. He was admitted 01/24 after he presented with 3-4 days of increasing dyspnea and diarrhea after testing positive for COVID. #COVID 19 Pneumonia - Completed abx, remdesivir course, tocilizumab infusion, convalescent plasma transfusion - SpO2 in low 90s on NRB, desats to late 70s, early 80s during exertion - CXR (03/03): No significant interval change, diffuse BL interstitial and airspace opacities/inf - CTA ordered, pt desatting this morning so will defer once pt can safely be transported downstairs - Started on Decadron 8mg Q8H due to upper airway complaints, will re-assess tomorrow and taper if feasible as per Pulm - Eliquis 5mg BID for elevated dDimers - Vitamin C, Vitamin D, Zinc - COVID (02/27) NEG # Atypical Chest Pain - Resolved, likely 2/2 excessive coughing, Robitussin Q4H - ACS ruled out: TNI neg x2; EKG showed NSR, no acute ischemic changes - Plan for ECHO and MIBI when feasible with outpatient Cardio F/U with Dr. Rossi #Newly diagnosed DM - HbA1c 10.5 - BGM/ISS ACHS; goal BG 140-180 - Levemir 20 increased to 25 and Novolog 2mg TIDAC added in addition to Novolog ISS # Headache - Started on Fioricet Q6H #Hx of HTN - Started on Losartan here, holding for now due to low BP #Newly diagnosed HLD - Chol 204, LDL 122, HDL 62 - Lipitor 40 HS #FEN - PO hydration - DM diet #Prophylaxis - On Eliquis 5 mg BID - Started Protonix 40mg #Dispo - Will monitor on M?S - Plan to down titrate from NRB and eventually transfer to LTAC once clinically feasible Visit type - Emergency Visit Emergency Visit: Yes ED Registration Date: 01/25/20 Care time: The patient presented to the Emergency Department on the above date and was hospitalized for further evaluation of their emergent condition. - New Patient This patient is new to me today: No - Critical Care Critical Care patient: No ATTENDING PHYSICIAN STATEMENT I saw and evaluated the patient. I reviewed the resident's note and discussed the case with the resident. I agree with the resident's findings and plan as documented. SUBJECTIVE: OBJECTIVE: ASSESSMENT AND PLAN:
[2020-03-03] MEDS: Insulin (LOG) Aspart 100 UNITS/ML VIAL SQ SCH (16:47)
[2020-03-03] MEDS: MELATONIN 5 MG TABLETS PO PRN (21:41)
[2020-03-03] MEDS: INSULIN (LEVEMIR) 100 UNITS/ML UNITS SQ SCH (21:41)
[2020-03-03] MEDS: guaiFENesin/CODEINE 10 ML UNIT-DOSE CUPS PO PRN (21:41)
[2020-03-03] MEDS: ATORVASTATIN CA 40 MG TABLET (FP) PO SCH (21:41)
[2020-03-04] MEDS: guaiFENesin/CODEINE 10 ML UNIT-DOSE CUPS PO SCH ×6 (01:06→20:13)
[2020-03-04] MEDS: DEXAMETHASONE SOD PHOSPHATE 4 MG/1 ML VIAL IVPUSH SCH (02:06)
[2020-03-04] MEDS: INSULIN (LEVEMIR) 100 UNITS/ML UNITS SQ SCH ×2 (06:27→21:18)
[2020-03-04] MEDS: Insulin (LOG) Aspart 100 UNITS/ML VIAL SQ SCH ×3 (06:28→17:29)
[2020-03-04] MEDS: INSULIN SLIDING SCALE (NOVOLOG) 1 VIAL SQ SCH ×4 (06:29→21:51)
[2020-03-04 07:58] LABS: BASO % 0.4 % (0-2.0); HEMATOCRIT 31.3 % (35.4-49); HEMOGLOBIN 9.9 GM/dL (11.7-16.9); MCH 24.4 pg (25.7-33.7); MCHC 31.7 g/dl (32.0-35.9); MEAN CELL VOLUME 76.7 fl (80-96); MEAN PLT VOLUME 8.7 fl (7.5-11.1); NEUT % 83.6 % (42.8-82.8); PLATELET COUNT 340 K/MM3 (134-434); RBC 4.08 M/mm3 (4.00-5.60); RDW 17.1 % (11.9-15.9); WHITE BLOOD COUNT 13.2 K/mm3 (4.0-10.0)
[2020-03-04 08:31] LABS: ALBUMIN 2.7 g/dl (3.4-5.0); BILIRUBIN,TOTAL 0.4 mg/dL (0.2-1); BLOOD UREA NITROGEN 14.9 mg/dL (7-18); CALCIUM 8.9 mg/dL (8.5-10.1); CREATININE 0.8 mg/dL (0.55-1.3); MAGNESIUM 2.4 mg/dL (1.8-2.4); PHOSPHOROUS 3.4 mg/dL (2.5-4.9); POTASSIUM 4.9 mmol/L (3.5-5.1); TOT PROT 6.3 g/dl (6.4-8.2)
--- NOTE | 2020-03-04 08:35 | PN ---
Progress Note, Physician History of Present Illness: 34 Y/O M Adm w/ Acute Hypoxic Resp Failure 2/2 COVID-19 in the setting of Morbid Obesity and Likely REYNALDO /OHS s/p Remdesivir and Tocil, convalescent plasma transfusion , ICU monitoring during this admission without intubation, now on NRB. Today: Patient seen and examined at bedside in mild distress Pt hoarseness improved , now voice is stronger On NRB, Dyspnea and coughing has improved. - Current Medication List Current Medications: Active Medications Acetaminophen (Tylenol -) 650 mg PO Q6H PRN PRN Reason: FEVER Acetaminophen/Butalbital/Caffeine (Fioricet -) 1 tablet PO Q6H PRN PRN Reason: HEADACHE Albuterol Sulfate (Ventolin Hfa Inhaler -) 1 puff IH Q4H PRN PRN Reason: SHORT OF BREATH/WHEEZING Alprazolam (Xanax -) 0.5 mg PO Q12H PRN PRN Reason: ANXIETY Apixaban (Eliquis -) 5 mg PO BID [facility] Last Admin: 03/03/20 21:41 Dose: 5 mg Documented by: Ascorbic Acid (Vitamin C -) 500 mg PO BID [facility] Last Admin: 03/03/20 21:41 Dose: 500 mg Documented by: Aspirin (Asa -) 81 mg PO DAILY [facility] Last Admin: 03/03/20 09:41 Dose: 81 mg Documented by: Atorvastatin Calcium (Lipitor -) 40 mg PO HS [facility] Last Admin: 03/03/20 21:41 Dose: 40 mg Documented by: Benzocaine/Menthol (Cepacol Lozenge -) 1 each MM Q4H PRN PRN Reason: SORE THROAT Last Admin: 03/01/20 10:35 Dose: 1 each Documented by: Budesonide/Formoterol Fumarate (Symbicort 80/4.5mcg -) 2 puff IH BID [facility] Last Admin: 03/03/20 21:56 Dose: 2 puff Documented by: Cholecalciferol (Vitamin D3 -) 2,000 unit PO DAILY [facility] Last Admin: 03/03/20 09:42 Dose: 2,000 unit Documented by: Clotrimazole (Lotrimin 1% Cream -) 1 applic TP BID [facility] Last Admin: 03/03/20 21:49 Dose: Not Given Documented by: Guaifenesin/Codeine Phosphate (Robitussin Ac -) 10 ml PO Q4H [facility] Last Admin: 03/04/20 04:19 Dose: 10 ml Documented by: Insulin Aspart (Novolog Vial Sliding Scale -) 1 vial SQ ACHS [facility]; Protocol Last Admin: 03/04/20 06:29 Dose: 6 units Documented by: Insulin Aspart (Novolog) 2 units SQ TIDAC [facility] Last Admin: 03/04/20 06:28 Dose: 2 units Documented by: Insulin Detemir (Levemir Vial) 15 units SQ HS [facility] Last Admin: 03/03/20 21:41 Dose: 15 units Documented by: Insulin Detemir (Levemir Vial) 25 units SQ ACBK [facility] Last Admin: 03/04/20 06:27 Dose: 25 units Documented by: Melatonin (Melatonin) 5 mg PO HS PRN PRN Reason: INSOMNIA Last Admin: 03/03/20 21:41 Dose: 5 mg Documented by: Pantoprazole Sodium (Protonix -) 40 mg PO DAILY [facility] Zinc Sulfate (Orazinc -) 220 mg PO BID [facility] Last Admin: 03/03/20 21:55 Dose: 220 mg Documented by: - Objective Vital Signs: Vital Signs Temperature 97.4 F L 03/04/20 06:50 Pulse Rate 80 03/04/20 06:50 Respiratory Rate 20 03/04/20 06:50 Blood Pressure 92/52 L 03/04/20 06:50 O2 Sat by Pulse Oximetry (%) 100 03/04/20 04:45 Constitutional: Yes: Well Nourished, No Distress, Calm, Obese Cardiovascular: Yes: Regular Rate and Rhythm Respiratory: Yes: Other (UPPER LOBE AIR ENTRY HAS IMPROVED MILD WHEEZING INSP/EXP, DIMINISHED AT BASES) Gastrointestinal: Yes: Normal Bowel Sounds, Soft, Abdomen, Obese Edema: No Labs: CBC, BMP 03/04/20 07:05 03/04/20 07:05 INR, PTT INR 1.00 (0.83-1.09) 01/25/20 16:29 Fibrinogen 468.0 mg/dL (238-498) 02/25/20 13:05 Impression/Plan Impression/Plan: 34 Y/O M Adm w/Acute Hypoxic Resp Failure 2/2 COVID-19 in the setting of Morbid Obesity and Likely REYNALDO /OHS s/p Remdesivir and Tocilzumad, convalescent plasma transfusion , ICU monitoring during this admission without intubation, now on NRB. Acute Hypoxic Resp Failure 2/2 COVID-19 in the setting of Morbid Obesity and Likely REYNALDO /OHS Inflammatory markers flat trend, Ddimer improved Still on NRB 15 L /min and BiPAP s/p Remdesivir and Tocilzumad, convalescent plasma transfusion Pulm recs appreciated BiPAP at night On NRB 15 L/min ABG CO2 improved 50 to 45 Po2 171 Will attempt to wean off NRB tomorrow Trend LDH, CRP, ESR, Ferritin, Agree with CTA delayed for when resp status more stable as pt likely cannot lay flat right now Is on full dose AC with Eliquis 5 mg BID Decadron 8 mg IVP q 8 per pulm recs Symbicort 2 puff BID 80/4.5mcg Guaifensin/codeine 10 ml PO Q 4 hr Ventolin 1 puff q 4 hr PNR dyspnea Cepacol, Zinc 220 mg BID, Vit C 500 mg BID,Vit D 3 2000 UNITS pod daily Will need Pulmonary follow up as o/p with PFT/Sleep study DM II-Newly Dx- with Hyperglycemia HLD HbA1C 10.5 /LDL 122 On steroids see above Detemir 25 units SQ AM and 20 units SQ PM As FS range >200 Novolog 6 units TID W/Meals ISS coverage noted and insulin inc to above ASA 81 mg primary prevention Lipitor 40 mg QHS Atypical Chest pain HTN Trop x 3 neg Cardio recs appreciated TTE- LV function Nl, study technically diffiuclt with suboptimal images BP was borderline- on Losartan will hold for now and restart when BP better Needs MPI in future Supp care: DVT Px- Eliquis 5 mg BID GI px- Protonix 40 mg daily Diet-Diabetic diet Visit type - Emergency Visit Emergency Visit: Yes ED Registration Date: 01/25/20 Care time: The patient presented to the Emergency Department on the above date and was hospitalized for further evaluation of their emergent condition. - New Patient This patient is new to me today: No - Critical Care Critical Care patient: No - Discharge Referral Referred to [facility] No
[2020-03-04] MEDS: CHOLECALCIFEROL (VIT D3) 1,000 UNIT (25 MCG) TABLET PO SCH (09:43)
[2020-03-04] MEDS: ASPIRIN 81 MG CHEWABLE TABLETS PO SCH (09:44)
[2020-03-04] MEDS: ASCORBIC ACID 500 MG TABLET (FP) PO SCH ×2 (09:44→21:15)
[2020-03-04] MEDS: PANTOPRAZOLE 40 MG TABLET PO SCH (09:44)
[2020-03-04] MEDS: APIXABAN 5 MG TABLET PO SCH ×2 (09:44→21:15)
[2020-03-04] MEDS: ZINC SULFATE 220 MG CAPSULE (FP) PO SCH ×2 (09:45→21:19)
[2020-03-04] MEDS: BUDESONIDE/FORMETEROL FUMARATE 80/4.5 mcg INHALER IH SCH ×2 (09:45→21:17)
--- NOTE | 2020-03-04 09:57 | PN ---
Physical Exam: SUBJECTIVE: Patient seen and examined at the bedside, seated and SOB, reports some improvement in upper resp symptoms after Decadron OBJECTIVE: Vital Signs Period Temp Pulse Resp BP Sys/Miner Pulse Ox Last 24 Hr 97.4 F-97.8 F 78-116 18-24 92-141/52-79 99-100 GENERAL: AOx3 HEAD: Normal with no signs of trauma. EYES: PERRL, extraocular movements intact, sclera anicteric, conjunctiva clear. No ptosis. NECK: Trachea midline, full range of motion, supple. LUNGS: On NRB. Decreased air entry throughout HEART: RRR. Normal S1, S2. No murmurs noted. ABDOMEN: Obese. Soft, nontender, obese, no guarding, no rebound, no hepatosplenomegaly, no masses. EXTREMITIES: 2+ pulses, warm, well-perfused, no edema. NEUROLOGICAL: Cranial nerves II through XII grossly intact. Normal speech, gait not observed. Laboratory Results - last 24 hr 03/03/20 03/03/20 03/03/20 07:55 11:45 16:45 WBC RBC Hgb Hct MCV MCH MCHC RDW Plt Count MPV Absolute Neuts (auto) Neutrophils % Lymphocytes % Monocytes % Eosinophils % Basophils % Nucleated RBC % D-Dimer Sodium 136 Potassium 4.7 Chloride 98 Carbon Dioxide 33 H Anion Gap 5 L BUN 13.5 Creatinine 0.7 Est GFR (CKD-EPI)AfAm 141.70 Est GFR (CKD-EPI)NonAf 122.26 POC Glucometer 236 271 Random Glucose 264 H Calcium 9.2 Phosphorus 3.7 Magnesium 2.1 Ferritin Total Bilirubin 0.6 AST 12 L ALT 30 Alkaline Phosphatase 90 LD Total C-Reactive Protein Total Protein 6.5 Albumin 2.8 L 03/03/20 03/04/20 03/04/20 21:46 06:25 07:05 WBC RBC Hgb Hct MCV MCH MCHC RDW Plt Count MPV Absolute Neuts (auto) Neutrophils % Lymphocytes % Monocytes % Eosinophils % Basophils % Nucleated RBC % D-Dimer Sodium 140 Potassium 4.9 Chloride 101 Carbon Dioxide 32 Anion Gap 6 L BUN 14.9 Creatinine 0.8 Est GFR (CKD-EPI)AfAm 134.14 Est GFR (CKD-EPI)NonAf 115.74 POC Glucometer 338 287 Random Glucose 307 H Calcium 8.9 Phosphorus 3.4 Magnesium 2.4 Ferritin 588.3 H Total Bilirubin 0.4 AST 10 L ALT 28 Alkaline Phosphatase 83 LD Total 476 H C-Reactive Protein 2.5 H Total Protein 6.3 L Albumin 2.7 L 03/04/20 03/04/20 07:05 07:05 WBC 13.2 H RBC 4.08 Hgb 9.9 L Hct 31.3 L MCV 76.7 L MCH 24.4 L MCHC 31.7 L RDW 17.1 H Plt Count 340 MPV 8.7 Absolute Neuts (auto) 11.0 H Neutrophils % 83.6 H Lymphocytes % 12.0 D Monocytes % 4.0 Eosinophils % 0.0 Basophils % 0.4 Nucleated RBC % 0 D-Dimer 800 H Sodium Potassium Chloride Carbon Dioxide Anion Gap BUN Creatinine Est GFR (CKD-EPI)AfAm Est GFR (CKD-EPI)NonAf POC Glucometer Random Glucose Calcium Phosphorus Magnesium Ferritin Total Bilirubin AST ALT Alkaline Phosphatase LD Total C-Reactive Protein Total Protein Albumin Active Medications Generic Name Dose Route Start Last Admin Trade Name Freq PRN Reason Stop Dose Admin Acetaminophen 650 mg 03/01/20 15:34 Tylenol - PO Q6H PRN FEVER Acetaminophen/Butalbital/Caffeine 1 tablet 03/01/20 15:34 Fioricet - PO Q6H PRN HEADACHE Albuterol Sulfate 1 puff 03/01/20 15:34 Ventolin Hfa Inhaler - IH Q4H PRN SHORT OF BREATH/WHEEZING Alprazolam 0.5 mg 03/01/20 15:34 Xanax - PO Q12H PRN ANXIETY Apixaban 5 mg 03/01/20 22:00 03/04/20 09:44 Eliquis - PO 5 mg BID SARAH Administration Ascorbic Acid 500 mg 03/01/20 22:00 03/04/20 09:44 Vitamin C - PO 500 mg BID SARAH Administration Aspirin 81 mg 03/02/20 10:00 03/04/20 09:44 Asa - PO 81 mg DAILY [facility]AH Administration Atorvastatin Calcium 40 mg 03/01/20 22:00 03/03/20 21:41 Lipitor - PO 40 mg HS SARAH Administration Benzocaine/Menthol 1 each 03/01/20 10:20 03/01/20 10:35 Cepacol Lozenge - MM 1 each Q4H PRN Administration SORE THROAT Budesonide/Formoterol Fumarate 2 puff 03/01/20 22:00 03/04/20 09:45 Symbicort 80/4.5mcg - IH 2 puff BID SARAH Administration Cholecalciferol 2,000 unit 03/02/20 10:00 03/04/20 09:43 Vitamin D3 - PO 2,000 unit DAILY [facility] Administration Clotrimazole 1 applic 03/01/20 22:00 03/03/20 21:49 Lotrimin 1% Cream - TP Not Given BID SARAH Guaifenesin/Codeine Phosphate 10 ml 03/02/20 12:15 03/04/20 09:44 Robitussin Ac - PO 10 ml Q4H SARAH Administration Insulin Aspart 1 vial 03/01/20 16:30 03/04/20 06:29 Novolog Vial Sliding Scale - SQ 6 units ACHS SARAH Administration Protocol Insulin Aspart 2 units 03/03/20 16:30 03/04/20 06:28 Novolog SQ 2 units TIDAC SARAH Administration Insulin Detemir 15 units 03/02/20 22:00 03/03/20 21:41 Levemir Vial SQ 15 units HS SARAH Administration Insulin Detemir 25 units 03/04/20 07:00 03/04/20 06:27 Levemir Vial SQ 25 units ACBK SARAH Administration Melatonin 5 mg 03/01/20 22:00 03/03/20 21:41 Melatonin PO 5 mg HS PRN Administration INSOMNIA Pantoprazole Sodium 40 mg 03/04/20 10:00 03/04/20 09:44 Protonix - PO 40 mg DAILY SARAH Administration Zinc Sulfate 220 mg 03/01/20 22:00 03/04/20 09:45 Orazinc - PO 220 mg BID SARAH Administration ASSESSMENT/PLAN: 34M with HTN (no home meds) and newly diagnosed DM on this admission. He was admitted 01/24 after he presented with 3-4 days of increasing dyspnea and diarrhea after testing positive for COVID. #COVID 19 Pneumonia - Completed abx, remdesivir course, tocilizumab infusion, convalescent plasma transfusion - SpO2 in high 90s on NRB - CXR (03/03): No significant interval change, diffuse BL interstitial and airspace opacities/inf - CTA pending pt's ability to lie flat - Decadron 8mg Q8H (03/03) due to upper airway complaints, continue decadron same dose as per Pulm - dDimer downtrending, on Eliquis 5mg BID - Vitamin C, Vitamin D, Zinc - COVID (02/27) NEG # Atypical Chest Pain - Resolved, likely 2/2 excessive coughing, Robitussin Q4H - ACS ruled out: TNI neg x2; EKG showed NSR, no acute ischemic changes - Plan for ECHO and MIBI when feasible with outpatient Cardio F/U with Dr. Rossi #Newly diagnosed DM - HbA1c 10.5, POC glucose in late 200s-300s - Levemir increased to 25 + 20 with Novolog 6TIDAC and ISS # Headache - Started on Fioricet Q6H #Hx of HTN - Started on Losartan here, holding for now due to low BP #Newly diagnosed HLD - Chol 204, LDL 122, HDL 62 - Lipitor 40 HS started #FEN - DM diet #Prophylaxis - On Eliquis 5 mg BID - Started Protonix 40mg #Dispo - Will monitor on M/S and attempt to wean off NRB Visit type - Emergency Visit Emergency Visit: Yes ED Registration Date: 01/25/20 Care time: The patient presented to the Emergency Department on the above date and was hospitalized for further evaluation of their emergent condition. - New Patient This patient is new to me today: No - Critical Care Critical Care patient: No ATTENDING PHYSICIAN STATEMENT I saw and evaluated the patient. I reviewed the resident's note and discussed the case with the resident. I agree with the resident's findings and plan as documented. SUBJECTIVE: OBJECTIVE: ASSESSMENT AND PLAN:
[2020-03-04 10:11] LABS: ERYTHROCYTE SEDIMENTATION RATE 96 mm/hr (0-10)
--- NOTE | 2020-03-04 11:44 | PN ---
Progress Note (short form) - Note Progress Note: PULMONARY Currently on NRB. States cough is improving on decadron and standing robitussin. Voice also stronger. Vital Signs Period Temp Pulse Resp BP Sys/Miner Pulse Ox Last 24 Hr 97.4 F-97.8 F 78-116 18-24 92-141/52-79 99-100 Gen: less cough Heart: RRR Lung: bibasilar rales Abd: soft, nontender Ext: no edema CBC, BMP 03/04/20 07:05 03/04/20 07:05 Active Medications Acetaminophen (Tylenol -) 650 mg PO Q6H PRN PRN Reason: FEVER Acetaminophen/Butalbital/Caffeine (Fioricet -) 1 tablet PO Q6H PRN PRN Reason: HEADACHE Albuterol Sulfate (Ventolin Hfa Inhaler -) 1 puff IH Q4H PRN PRN Reason: SHORT OF BREATH/WHEEZING Alprazolam (Xanax -) 0.5 mg PO Q12H PRN PRN Reason: ANXIETY Apixaban (Eliquis -) 5 mg PO BID [facility] Last Admin: 03/04/20 09:44 Dose: 5 mg Documented by: Ascorbic Acid (Vitamin C -) 500 mg PO BID [facility] Last Admin: 03/04/20 09:44 Dose: 500 mg Documented by: Aspirin (Asa -) 81 mg PO DAILY [facility] Last Admin: 03/04/20 09:44 Dose: 81 mg Documented by: Atorvastatin Calcium (Lipitor -) 40 mg PO HS [facility] Last Admin: 03/03/20 21:41 Dose: 40 mg Documented by: Benzocaine/Menthol (Cepacol Lozenge -) 1 each MM Q4H PRN PRN Reason: SORE THROAT Last Admin: 03/01/20 10:35 Dose: 1 each Documented by: Budesonide/Formoterol Fumarate (Symbicort 80/4.5mcg -) 2 puff IH BID [facility] Last Admin: 03/04/20 09:45 Dose: 2 puff Documented by: Cholecalciferol (Vitamin D3 -) 2,000 unit PO DAILY [facility] Last Admin: 03/04/20 09:43 Dose: 2,000 unit Documented by: Clotrimazole (Lotrimin 1% Cream -) 1 applic TP BID [facility] Last Admin: 03/03/20 21:49 Dose: Not Given Documented by: Guaifenesin/Codeine Phosphate (Robitussin Ac -) 10 ml PO Q4H [facility] Last Admin: 03/04/20 09:44 Dose: 10 ml Documented by: Insulin Aspart (Novolog Vial Sliding Scale -) 1 vial SQ ACHS [facility]; Protocol Last Admin: 03/04/20 06:29 Dose: 6 units Documented by: Insulin Aspart (Novolog) 2 units SQ TIDAC [facility] Last Admin: 03/04/20 06:28 Dose: 2 units Documented by: Insulin Detemir (Levemir Vial) 15 units SQ HS [facility] Last Admin: 03/03/20 21:41 Dose: 15 units Documented by: Insulin Detemir (Levemir Vial) 25 units SQ ACBK [facility] Last Admin: 03/04/20 06:27 Dose: 25 units Documented by: Melatonin (Melatonin) 5 mg PO HS PRN PRN Reason: INSOMNIA Last Admin: 03/03/20 21:41 Dose: 5 mg Documented by: Pantoprazole Sodium (Protonix -) 40 mg PO DAILY [facility] Last Admin: 03/04/20 09:44 Dose: 40 mg Documented by: Zinc Sulfate (Orazinc -) 220 mg PO BID [facility] Last Admin: 03/04/20 09:45 Dose: 220 mg Documented by: A/P Acute Hypoxic Respiratory Failure COVID Pneumonia ARDS HTN DM Anemia - s/p remdesivir course - s/p tocilizumab infusion - s/p convalescent plasma transfusion - continue decadron same dose - cough suppressants - continue anticoagulation - completed empiric antibiotics - trend ferritin, LDH, CRP - O2 to keep SpO2 >90% - BiPAP at night
[2020-03-04] MEDS ORDERED: INSULIN (NOVOLOG) ASPART 100 UNITS/ML 10ML VIAL ONE ×2 (11:51→21:41)
[2020-03-04] MEDS: CLOTRIMAZOLE 1% CREAM 15 GM TUBE TP SCH ×2 (12:13→21:19)
[2020-03-04] MEDS: ATORVASTATIN CA 40 MG TABLET (FP) PO SCH (21:15)
[2020-03-05] MEDS: guaiFENesin/CODEINE 10 ML UNIT-DOSE CUPS PO SCH ×6 (00:23→20:16)
[2020-03-05] MEDS: Insulin (LOG) Aspart 100 UNITS/ML VIAL SQ SCH ×3 (06:26→17:34)
[2020-03-05] MEDS: INSULIN (LEVEMIR) 100 UNITS/ML UNITS SQ SCH ×2 (06:26→21:19)
[2020-03-05] MEDS: INSULIN SLIDING SCALE (NOVOLOG) 1 VIAL SQ SCH ×4 (06:28→21:20)
[2020-03-05 08:08] LABS: BASO % 0.5 % (0-2.0); EOS % 5.3 % (0-4.5); HEMATOCRIT 30.2 % (35.4-49); HEMOGLOBIN 9.5 GM/dL (11.7-16.9); LYMPH % 35.8 % (8-40); MCH 24.2 pg (25.7-33.7); MCHC 31.5 g/dl (32.0-35.9); MEAN CELL VOLUME 76.7 fl (80-96); MEAN PLT VOLUME 8.6 fl (7.5-11.1); MONO % 8.9 % (3.8-10.2); NEUT % 49.5 % (42.8-82.8); PLATELET COUNT 336 K/MM3 (134-434); RBC 3.93 M/mm3 (4.00-5.60); RDW 16.9 % (11.9-15.9); WHITE BLOOD COUNT 12.8 K/mm3 (4.0-10.0)
[2020-03-05 08:28] LABS: ALBUMIN 2.6 g/dl (3.4-5.0); BILIRUBIN,TOTAL 0.4 mg/dL (0.2-1); BLOOD UREA NITROGEN 16.4 mg/dL (7-18); CALCIUM 8.7 mg/dL (8.5-10.1); CREATININE 0.9 mg/dL (0.55-1.3); MAGNESIUM 2.1 mg/dL (1.8-2.4); PHOSPHOROUS 4.2 mg/dL (2.5-4.9); POTASSIUM 4.1 mmol/L (3.5-5.1); TOT PROT 5.7 g/dl (6.4-8.2)
[2020-03-05] MEDS: PANTOPRAZOLE 40 MG TABLET PO SCH (09:20)
[2020-03-05] MEDS: ASCORBIC ACID 500 MG TABLET (FP) PO SCH ×2 (09:20→21:16)
[2020-03-05] MEDS: APIXABAN 5 MG TABLET PO SCH ×2 (09:20→21:16)
[2020-03-05] MEDS: CHOLECALCIFEROL (VIT D3) 1,000 UNIT (25 MCG) TABLET PO SCH (09:20)
[2020-03-05] MEDS: ASPIRIN 81 MG CHEWABLE TABLETS PO SCH (09:20)
[2020-03-05] MEDS: ZINC SULFATE 220 MG CAPSULE (FP) PO SCH ×2 (09:20→21:16)
[2020-03-05] MEDS: CLOTRIMAZOLE 1% CREAM 15 GM TUBE TP SCH ×2 (09:21→21:17)
[2020-03-05] MEDS: BUDESONIDE/FORMETEROL FUMARATE 80/4.5 mcg INHALER IH SCH ×2 (09:22→21:23)
--- NOTE | 2020-03-05 10:32 | PN ---
Progress Note (short form) - Note Progress Note: Remains on NRBM alternating with NIPPV. Voice seems stronger and clinically better, but still requiring significant. Intake & Output 03/02/20 03/03/20 03/04/20 03/05/20 23:59 23:59 23:59 23:59 Intake Total 740 500 400 0 Output Total 1300 350 Balance -560 150 400 0 Last Vital Signs Temp Pulse Resp BP Pulse Ox 98.2 F 68 20 98/65 100 03/05/20 04:49 03/05/20 04:49 03/05/20 04:49 03/05/20 04:49 03/04/20 22:00 Active Medications Acetaminophen (Tylenol -) 650 mg PO Q6H PRN PRN Reason: FEVER Acetaminophen/Butalbital/Caffeine (Fioricet -) 1 tablet PO Q6H PRN PRN Reason: HEADACHE Albuterol Sulfate (Ventolin Hfa Inhaler -) 1 puff IH Q4H PRN PRN Reason: SHORT OF BREATH/WHEEZING Alprazolam (Xanax -) 0.5 mg PO Q12H PRN PRN Reason: ANXIETY Apixaban (Eliquis -) 5 mg PO BID [facility] Last Admin: 03/05/20 09:20 Dose: 5 mg Documented by: Ascorbic Acid (Vitamin C -) 500 mg PO BID [facility] Last Admin: 03/05/20 09:20 Dose: 500 mg Documented by: Aspirin (Asa -) 81 mg PO DAILY [facility] Last Admin: 03/05/20 09:20 Dose: 81 mg Documented by: Atorvastatin Calcium (Lipitor -) 40 mg PO HS [facility] Last Admin: 03/04/20 21:15 Dose: 40 mg Documented by: Benzocaine/Menthol (Cepacol Lozenge -) 1 each MM Q4H PRN PRN Reason: SORE THROAT Last Admin: 03/01/20 10:35 Dose: 1 each Documented by: Budesonide/Formoterol Fumarate (Symbicort 80/4.5mcg -) 2 puff IH BID [facility] Last Admin: 03/05/20 09:22 Dose: 2 puff Documented by: Cholecalciferol (Vitamin D3 -) 2,000 unit PO DAILY [facility] Last Admin: 03/05/20 09:20 Dose: 2,000 unit Documented by: Clotrimazole (Lotrimin 1% Cream -) 1 applic TP BID [facility] Last Admin: 03/05/20 09:21 Dose: Not Given Documented by: Guaifenesin/Codeine Phosphate (Robitussin Ac -) 10 ml PO Q4H [facility] Last Admin: 03/05/20 09:19 Dose: 10 ml Documented by: Insulin Aspart (Novolog Vial Sliding Scale -) 1 vial SQ ACHS [facility]; Protocol Last Admin: 03/05/20 06:28 Dose: Not Given Documented by: Insulin Aspart (Novolog) 6 units SQ TIDAC [facility] Last Admin: 03/05/20 06:26 Dose: Not Given Documented by: Insulin Detemir (Levemir Vial) 25 units SQ ACBK [facility] Last Admin: 03/05/20 06:26 Dose: 25 units Documented by: Insulin Detemir (Levemir Vial) 20 units SQ HS [facility] Last Admin: 03/04/20 21:18 Dose: 20 units Documented by: Melatonin (Melatonin) 5 mg PO HS PRN PRN Reason: INSOMNIA Last Admin: 03/03/20 21:41 Dose: 5 mg Documented by: Pantoprazole Sodium (Protonix -) 40 mg PO DAILY [facility] Last Admin: 03/05/20 09:20 Dose: 40 mg Documented by: Zinc Sulfate (Orazinc -) 220 mg PO BID [facility] Last Admin: 03/05/20 09:20 Dose: 220 mg Documented by: Gen: less cough Heart: RRR Lung: bibasilar rales Abd: soft, nontender Ext: no edema Laboratory Results - last 24 hr 03/04/20 03/04/20 03/04/20 12:10 17:27 21:45 WBC RBC Hgb Hct MCV MCH MCHC RDW Plt Count MPV Absolute Neuts (auto) Neutrophils % Lymphocytes % Monocytes % Eosinophils % Basophils % Nucleated RBC % D-Dimer Sodium Potassium Chloride Carbon Dioxide Anion Gap BUN Creatinine Est GFR (CKD-EPI)AfAm Est GFR (CKD-EPI)NonAf POC Glucometer 238 286 312 Random Glucose Calcium Phosphorus Magnesium Ferritin Total Bilirubin AST ALT Alkaline Phosphatase LD Total C-Reactive Protein Total Protein Albumin 03/05/20 03/05/20 03/05/20 05:48 07:35 07:35 WBC 12.8 H RBC 3.93 L Hgb 9.5 L Hct 30.2 L MCV 76.7 L MCH 24.2 L MCHC 31.5 L RDW 16.9 H Plt Count 336 MPV 8.6 Absolute Neuts (auto) 6.3 Neutrophils % 49.5 D Lymphocytes % 35.8 D Monocytes % 8.9 D Eosinophils % 5.3 H D Basophils % 0.5 Nucleated RBC % 0 D-Dimer Sodium 138 Potassium 4.1 Chloride 102 Carbon Dioxide 34 H Anion Gap 2 L BUN 16.4 Creatinine 0.9 Est GFR (CKD-EPI)AfAm 127.80 Est GFR (CKD-EPI)NonAf 110.27 POC Glucometer 124 Random Glucose 130 H Calcium 8.7 Phosphorus 4.2 Magnesium 2.1 Ferritin 509.1 H Total Bilirubin 0.4 AST 15 ALT 26 Alkaline Phosphatase 70 LD Total 475 H C-Reactive Protein 1.1 H Total Protein 5.7 L Albumin 2.6 L 03/05/20 07:35 WBC RBC Hgb Hct MCV MCH MCHC RDW Plt Count MPV Absolute Neuts (auto) Neutrophils % Lymphocytes % Monocytes % Eosinophils % Basophils % Nucleated RBC % D-Dimer 918 H Sodium Potassium Chloride Carbon Dioxide Anion Gap BUN Creatinine Est GFR (CKD-EPI)AfAm Est GFR (CKD-EPI)NonAf POC Glucometer Random Glucose Calcium Phosphorus Magnesium Ferritin Total Bilirubin AST ALT Alkaline Phosphatase LD Total C-Reactive Protein Total Protein Albumin A/P Acute Hypoxic Respiratory Failure COVID Pneumonia ARDS HTN DM Anemia - s/p remdesivir course - s/p tocilizumab infusion - s/p convalescent plasma transfusion - S/P decadron - cough suppressants - continue anticoagulation - completed empiric antibiotics - trend ferritin, LDH, CRP - O2 to keep SpO2 >90% - NIPPV at night & PRN - Trial of Lasix Dr Cavazos
[2020-03-05] MEDS ORDERED: FUROSEMIDE 40 MG/4 ML INJECTABLE VIAL IVPUSH ONE (10:33)
--- NOTE | 2020-03-05 11:13 | PN ---
Progress Note, Physician History of Present Illness: 34yo male with recent COVID positive test presents to the ED with shortness of breath and extreme fatigue. Recently on azithromycin course without relief. Saturating at 98% on room air, placed on 2L nasal cannula upon arrival with symptomatic relief. Patient has been progressively short of breath since diagnosis. - Current Medication List Current Medications: Active Medications Acetaminophen (Tylenol -) 650 mg PO Q6H PRN PRN Reason: FEVER Acetaminophen/Butalbital/Caffeine (Fioricet -) 1 tablet PO Q6H PRN PRN Reason: HEADACHE Albuterol Sulfate (Ventolin Hfa Inhaler -) 1 puff IH Q4H PRN PRN Reason: SHORT OF BREATH/WHEEZING Alprazolam (Xanax -) 0.5 mg PO Q12H PRN PRN Reason: ANXIETY Apixaban (Eliquis -) 5 mg PO BID [facility] Last Admin: 03/05/20 09:20 Dose: 5 mg Documented by: Ascorbic Acid (Vitamin C -) 500 mg PO BID [facility] Last Admin: 03/05/20 09:20 Dose: 500 mg Documented by: Aspirin (Asa -) 81 mg PO DAILY [facility] Last Admin: 03/05/20 09:20 Dose: 81 mg Documented by: Atorvastatin Calcium (Lipitor -) 40 mg PO HS [facility] Last Admin: 03/04/20 21:15 Dose: 40 mg Documented by: Benzocaine/Menthol (Cepacol Lozenge -) 1 each MM Q4H PRN PRN Reason: SORE THROAT Last Admin: 03/01/20 10:35 Dose: 1 each Documented by: Budesonide/Formoterol Fumarate (Symbicort 80/4.5mcg -) 2 puff IH BID [facility] Last Admin: 03/05/20 09:22 Dose: 2 puff Documented by: Cholecalciferol (Vitamin D3 -) 2,000 unit PO DAILY [facility] Last Admin: 03/05/20 09:20 Dose: 2,000 unit Documented by: Clotrimazole (Lotrimin 1% Cream -) 1 applic TP BID [facility] Last Admin: 03/05/20 09:21 Dose: Not Given Documented by: Guaifenesin/Codeine Phosphate (Robitussin Ac -) 10 ml PO Q4H [facility] Last Admin: 03/05/20 09:19 Dose: 10 ml Documented by: Insulin Aspart (Novolog Vial Sliding Scale -) 1 vial SQ ACHS [facility]; Protocol Last Admin: 03/05/20 06:28 Dose: Not Given Documented by: Insulin Aspart (Novolog) 6 units SQ TIDAC [facility] Last Admin: 03/05/20 06:26 Dose: Not Given Documented by: Insulin Detemir (Levemir Vial) 25 units SQ ACBK [facility] Last Admin: 03/05/20 06:26 Dose: 25 units Documented by: Insulin Detemir (Levemir Vial) 20 units SQ HS [facility] Last Admin: 03/04/20 21:18 Dose: 20 units Documented by: Melatonin (Melatonin) 5 mg PO HS PRN PRN Reason: INSOMNIA Last Admin: 03/03/20 21:41 Dose: 5 mg Documented by: Pantoprazole Sodium (Protonix -) 40 mg PO DAILY [facility] Last Admin: 03/05/20 09:20 Dose: 40 mg Documented by: Zinc Sulfate (Orazinc -) 220 mg PO BID [facility] Last Admin: 03/05/20 09:20 Dose: 220 mg Documented by: - Objective Vital Signs: Vital Signs Temperature 98.2 F 03/05/20 04:49 Pulse Rate 68 03/05/20 04:49 Respiratory Rate 20 03/05/20 04:49 Blood Pressure 98/65 03/05/20 04:49 O2 Sat by Pulse Oximetry (%) 100 03/04/20 22:00 Eyes: Yes: WNL, Conjunctiva Clear, EOM Intact HENT: Yes: WNL, Atraumatic, Normocephalic Neck: Yes: WNL, Supple, Trachea Midline Cardiovascular: Yes: WNL, Regular Rate and Rhythm Respiratory: Yes: WNL, Regular, CTA Bilaterally Gastrointestinal: Yes: WNL, Normal Bowel Sounds Genitourinary: Yes: WNL Musculoskeletal: Yes: WNL Extremities: Yes: WNL Edema: No Integumentary: Yes: WNL Neurological: Yes: WNL, Alert, Oriented ...Motor Strength: WNL Psychiatric: Yes: WNL Labs: CBC, BMP 03/05/20 07:35 03/05/20 07:35 INR, PTT INR 1.00 (0.83-1.09) 01/25/20 16:29 Fibrinogen 468.0 mg/dL (238-498) 02/25/20 13:05 Problem List - Problems (1) Acute hypoxemic respiratory failure Code(s): J96.01 - ACUTE RESPIRATORY FAILURE WITH HYPOXIA (2) COVID-19 Code(s): U07.1 - COVID POSITIVE (3) HTN (hypertension) Code(s): I10 - ESSENTIAL (PRIMARY) HYPERTENSION (4) REYNALDO (obstructive sleep apnea) Code(s): G47.33 - OBSTRUCTIVE SLEEP APNEA (ADULT) (PEDIATRIC) (5) Obesity Code(s): E66.9 - OBESITY, UNSPECIFIED (6) Bronchitis Code(s): J40 - BRONCHITIS, NOT SPECIFIED ACUTE OR CHRONIC (7) Cough Code(s): R05 - COUGH Assessment/Plan s/p COVID pneumonia ARDS Hyperlipidemia DM Morbid Obesity Atypical chest pain Plan: COVID not detected (02/28/20) Bronchodilators, O2, steroids, and antibiotics per rn shift mgr. TNI < 0.02 x 2 EKG:NSR; no acute changes LDL cholesterol 122 mg/dL; keep < 70 mg;dL with statin, diet change. On apixaban for anticoagulation. BUN/Cr, electrolytes, daily weight, Is and Os. ECHO TDS LVEF,nl Now on losartan (HTN; diastolic dysfunction; DM). Plan on stress MIBI, due to multiple CAD risks, when stable.
[2020-03-05] MEDS ORDERED: INSULIN (NOVOLOG) ASPART 100 UNITS/ML 10ML VIAL ONE ×3 (12:33→20:25)
--- NOTE | 2020-03-05 13:02 | PN ---
Progress Note, Physician History of Present Illness: 34 Y/O M Adm w/ Acute Hypoxic Resp Failure 2/2 COVID-19 in the setting of Morbid Obesity and Likely REYNALDO /OHS s/p Remdesivir and Tocil, convalescent plasma transfusion , ICU monitoring during this admission without intubation, now on NRB. Today: Patient seen and examined at bedside in mild distress Pt hoarseness improved , now voice is stronger On NRB, Dyspnea and coughing has improved over the past few days - Current Medication List Current Medications: Active Medications Acetaminophen (Tylenol -) 650 mg PO Q6H PRN PRN Reason: FEVER Acetaminophen/Butalbital/Caffeine (Fioricet -) 1 tablet PO Q6H PRN PRN Reason: HEADACHE Albuterol Sulfate (Ventolin Hfa Inhaler -) 1 puff IH Q4H PRN PRN Reason: SHORT OF BREATH/WHEEZING Alprazolam (Xanax -) 0.5 mg PO Q12H PRN PRN Reason: ANXIETY Apixaban (Eliquis -) 5 mg PO BID [facility] Last Admin: 03/05/20 09:20 Dose: 5 mg Documented by: Ascorbic Acid (Vitamin C -) 500 mg PO BID [facility] Last Admin: 03/05/20 09:20 Dose: 500 mg Documented by: Aspirin (Asa -) 81 mg PO DAILY [facility] Last Admin: 03/05/20 09:20 Dose: 81 mg Documented by: Atorvastatin Calcium (Lipitor -) 40 mg PO HS [facility] Last Admin: 03/04/20 21:15 Dose: 40 mg Documented by: Benzocaine/Menthol (Cepacol Lozenge -) 1 each MM Q4H PRN PRN Reason: SORE THROAT Last Admin: 03/01/20 10:35 Dose: 1 each Documented by: Budesonide/Formoterol Fumarate (Symbicort 80/4.5mcg -) 2 puff IH BID [facility] Last Admin: 03/05/20 09:22 Dose: 2 puff Documented by: Cholecalciferol (Vitamin D3 -) 2,000 unit PO DAILY [facility] Last Admin: 03/05/20 09:20 Dose: 2,000 unit Documented by: Clotrimazole (Lotrimin 1% Cream -) 1 applic TP BID [facility] Last Admin: 03/05/20 09:21 Dose: Not Given Documented by: Guaifenesin/Codeine Phosphate (Robitussin Ac -) 10 ml PO Q4H [facility] Last Admin: 03/05/20 12:36 Dose: 10 ml Documented by: Insulin Aspart (Novolog Vial Sliding Scale -) 1 vial SQ ACHS [facility]; Protocol Last Admin: 03/05/20 12:40 Dose: Not Given Documented by: Insulin Aspart (Novolog) 6 units SQ TIDAC [facility] Last Admin: 03/05/20 12:36 Dose: 6 units Documented by: Insulin Detemir (Levemir Vial) 25 units SQ ACBK [facility] Last Admin: 03/05/20 06:26 Dose: 25 units Documented by: Insulin Detemir (Levemir Vial) 20 units SQ HS [facility] Last Admin: 03/04/20 21:18 Dose: 20 units Documented by: Melatonin (Melatonin) 5 mg PO HS PRN PRN Reason: INSOMNIA Last Admin: 03/03/20 21:41 Dose: 5 mg Documented by: Pantoprazole Sodium (Protonix -) 40 mg PO DAILY [facility] Last Admin: 03/05/20 09:20 Dose: 40 mg Documented by: Zinc Sulfate (Orazinc -) 220 mg PO BID [facility] Last Admin: 03/05/20 09:20 Dose: 220 mg Documented by: - Objective Vital Signs: Vital Signs Temperature 98.2 F 03/05/20 04:49 Pulse Rate 68 03/05/20 04:49 Respiratory Rate 20 03/05/20 04:49 Blood Pressure 98/65 03/05/20 04:49 O2 Sat by Pulse Oximetry (%) 100 03/04/20 22:00 Constitutional: Yes: Well Nourished, No Distress, Calm Cardiovascular: Yes: Regular Rate and Rhythm Respiratory: Yes: Diminished (but air entry improved wheezing decreased) Gastrointestinal: Yes: Normal Bowel Sounds, Soft, Abdomen, Obese Edema: No Labs: CBC, BMP 03/05/20 07:35 03/05/20 07:35 INR, PTT INR 1.00 (0.83-1.09) 01/25/20 16:29 Fibrinogen 468.0 mg/dL (238-498) 02/25/20 13:05 Impression/Plan Impression/Plan: 34 Y/O M Adm w/Acute Hypoxic Resp Failure 2/2 COVID-19 in the setting of Morbid Obesity and Likely REYNALDO /OHS s/p Remdesivir and Tocilzumad, convalescent plasma transfusion , ICU monitoring during this admission without intubation, now on NRB. Acute Hypoxic Resp Failure 2/2 COVID-19 in the setting of Morbid Obesity and Likely REYNALDO /OHS Inflammatory markers flat trend, Ddimer improved s/p Remdesivir and Tocilzumad, convalescent plasma transfusion Pulm recs appreciated Still on NRB 15 L /min and BiPAP ABG CO2 improved 50 to 45 Po2 171 Will attempt to wean off NRB daily Trend LDH, CRP, ESR, Ferritin, Agree with CTA delayed for when resp status more stable as pt likely cannot lay flat right now Is on full dose AC with Eliquis 5 mg BID Decadron 8 mg IVP q 8 per pulm recs taper Symbicort 2 puff BID 80/4.5mcg Guaifensin/codeine 10 ml PO Q 4 hr Ventolin 1 puff q 4 hr PNR dyspnea Cepacol, Zinc 220 mg BID, Vit C 500 mg BID,Vit D 3 2000 UNITS pod daily Will need Pulmonary follow up as o/p with PFT/Sleep study DM II-Newly Dx- with Hyperglycemia HLD HbA1C 10.5 /LDL 122 On steroids see above Detemir 25 units SQ AM and 20 units SQ PM As FS range >200 Novolog 6 units TID W/Meals ISS coverage noted and insulin inc to above ASA 81 mg primary prevention Lipitor 40 mg QHS Atypical Chest pain HTN Trop x 3 neg Cardio recs appreciated TTE- LV function Nl, study technically diffiuclt with suboptimal images BP was borderline- on Losartan will hold for now and restart when BP better Needs MPI in future Supp care: DVT Px- Eliquis 5 mg BID GI px- Protonix 40 mg daily Diet-Diabetic diet Visit type - Emergency Visit Emergency Visit: Yes ED Registration Date: 01/25/20 Care time: The patient presented to the Emergency Department on the above date and was hospitalized for further evaluation of their emergent condition. - New Patient This patient is new to me today: No - Critical Care Critical Care patient: No - Discharge Referral Referred to [facility] Med P.C.: No
--- NOTE | 2020-03-05 16:48 | PN ---
Physical Exam: SUBJECTIVE: Patient seen and examined at the bedside, seated and SOB, reports some improvement in upper resp symptoms after short Decadron course OBJECTIVE: Vital Signs Period Temp Pulse Resp BP Sys/Miner Pulse Ox Last 24 Hr 97.8 F-98.2 F 68-111 20-20 98-110/65-74 100-100 GENERAL: AOx3 HEAD: Normal with no signs of trauma. EYES: PERRL, extraocular movements intact, sclera anicteric, conjunctiva clear. No ptosis. NECK: Trachea midline, full range of motion, supple. LUNGS: On NRB. Decreased air entry throughout HEART: RRR. Normal S1, S2. No murmurs noted. ABDOMEN: Obese. Soft, nontender, obese, no guarding, no rebound, no hepatosplenomegaly, no masses. EXTREMITIES: 2+ pulses, warm, well-perfused, no edema. NEUROLOGICAL: Cranial nerves II through XII grossly intact. Normal speech, gait not observed. Laboratory Results - last 24 hr 03/04/20 03/04/20 03/05/20 17:27 21:45 05:48 WBC RBC Hgb Hct MCV MCH MCHC RDW Plt Count MPV Absolute Neuts (auto) Neutrophils % Lymphocytes % Monocytes % Eosinophils % Basophils % Nucleated RBC % D-Dimer Sodium Potassium Chloride Carbon Dioxide Anion Gap BUN Creatinine Est GFR (CKD-EPI)AfAm Est GFR (CKD-EPI)NonAf POC Glucometer 286 312 124 Random Glucose Calcium Phosphorus Magnesium Ferritin Total Bilirubin AST ALT Alkaline Phosphatase LD Total C-Reactive Protein Total Protein Albumin 03/05/20 03/05/20 03/05/20 07:35 07:35 07:35 WBC 12.8 H RBC 3.93 L Hgb 9.5 L Hct 30.2 L MCV 76.7 L MCH 24.2 L MCHC 31.5 L RDW 16.9 H Plt Count 336 MPV 8.6 Absolute Neuts (auto) 6.3 Neutrophils % 49.5 D Lymphocytes % 35.8 D Monocytes % 8.9 D Eosinophils % 5.3 H D Basophils % 0.5 Nucleated RBC % 0 D-Dimer 918 H Sodium 138 Potassium 4.1 Chloride 102 Carbon Dioxide 34 H Anion Gap 2 L BUN 16.4 Creatinine 0.9 Est GFR (CKD-EPI)AfAm 127.80 Est GFR (CKD-EPI)NonAf 110.27 POC Glucometer Random Glucose 130 H Calcium 8.7 Phosphorus 4.2 Magnesium 2.1 Ferritin 509.1 H Total Bilirubin 0.4 AST 15 ALT 26 Alkaline Phosphatase 70 LD Total 475 H C-Reactive Protein 1.1 H Total Protein 5.7 L Albumin 2.6 L 03/05/20 12:31 WBC RBC Hgb Hct MCV MCH MCHC RDW Plt Count MPV Absolute Neuts (auto) Neutrophils % Lymphocytes % Monocytes % Eosinophils % Basophils % Nucleated RBC % D-Dimer Sodium Potassium Chloride Carbon Dioxide Anion Gap BUN Creatinine Est GFR (CKD-EPI)AfAm Est GFR (CKD-EPI)NonAf POC Glucometer 108 Random Glucose Calcium Phosphorus Magnesium Ferritin Total Bilirubin AST ALT Alkaline Phosphatase LD Total C-Reactive Protein Total Protein Albumin Active Medications Generic Name Dose Route Start Last Admin Trade Name Freq PRN Reason Stop Dose Admin Acetaminophen 650 mg 03/01/20 15:34 Tylenol - PO Q6H PRN FEVER Acetaminophen/Butalbital/Caffeine 1 tablet 03/01/20 15:34 Fioricet - PO Q6H PRN HEADACHE Albuterol Sulfate 1 puff 03/01/20 15:34 Ventolin Hfa Inhaler - IH Q4H PRN SHORT OF BREATH/WHEEZING Alprazolam 0.5 mg 03/01/20 15:34 Xanax - PO Q12H PRN ANXIETY Apixaban 5 mg 03/01/20 22:00 03/05/20 09:20 Eliquis - PO 5 mg BID [facility] Administration Ascorbic Acid 500 mg 03/01/20 22:00 03/05/20 09:20 Vitamin C - PO 500 mg BID [facility] Administration Aspirin 81 mg 03/02/20 10:00 03/05/20 09:20 Asa - PO 81 mg DAILY [facility] Administration Atorvastatin Calcium 40 mg 03/01/20 22:00 03/04/20 21:15 Lipitor - PO 40 mg HS [facility] Administration Benzocaine/Menthol 1 each 03/01/20 10:20 03/01/20 10:35 Cepacol Lozenge - MM 1 each Q4H PRN Administration SORE THROAT Budesonide/Formoterol Fumarate 2 puff 03/01/20 22:00 03/05/20 09:22 Symbicort 80/4.5mcg - IH 2 puff BID [facility] Administration Cholecalciferol 2,000 unit 03/02/20 10:00 03/05/20 09:20 Vitamin D3 - PO 2,000 unit DAILY [facility] Administration Clotrimazole 1 applic 03/01/20 22:00 03/05/20 09:21 Lotrimin 1% Cream - TP Not Given BID [facility] Guaifenesin/Codeine Phosphate 10 ml 03/02/20 12:15 03/05/20 12:36 Robitussin Ac - PO 10 ml Q4H [facility] Administration Insulin Aspart 1 vial 03/01/20 16:30 03/05/20 12:40 Novolog Vial Sliding Scale - SQ Not Given ACHS [facility] Protocol Insulin Aspart 6 units 03/04/20 12:19 03/05/20 12:36 Novolog SQ 6 units TIDAC [facility] Administration Insulin Detemir 25 units 03/04/20 07:00 03/05/20 06:26 Levemir Vial SQ 25 units ACBK [facility] Administration Insulin Detemir 20 units 03/04/20 12:19 03/04/20 21:18 Levemir Vial SQ 20 units HS [facility] Administration Melatonin 5 mg 03/01/20 22:00 03/03/20 21:41 Melatonin PO 5 mg HS PRN Administration INSOMNIA Pantoprazole Sodium 40 mg 03/04/20 10:00 03/05/20 09:20 Protonix - PO 40 mg DAILY [facility] Administration Zinc Sulfate 220 mg 03/01/20 22:00 03/05/20 09:20 Orazinc - PO 220 mg BID [facility] Administration ASSESSMENT/PLAN: 34M with HTN (no home meds) and newly diagnosed DM on this admission. He was admitted 01/24 after he presented with 3-4 days of increasing dyspnea and diarrhea after testing positive for COVID. #COVID 19 Pneumonia - Completed abx, remdesivir course, tocilizumab infusion, convalescent plasma transfusion - SpO2 in high 90s on NRB - CXR (03/03): No significant interval change, diffuse BL interstitial and airspace opacities/inf - CTA pending pt's ability to lie flat - Decadron 8mg Q8H 2 day course completed (03/03-) - Pulm consult: 1x Lasix trial administered, Decadron DCed - dDimer downtrending, on Eliquis 5mg BID - Vitamin C, Vitamin D, Zinc - COVID (02/27) NEG # Atypical Chest Pain - Resolved, likely 2/2 excessive coughing, Robitussin Q4H - ACS ruled out: TNI neg x2; EKG showed NSR, no acute ischemic changes - Plan for ECHO and MIBI when feasible with outpatient Cardio F/U with Dr. Rossi #Newly diagnosed DM - HbA1c 10.5, POC glucose in late 200s-300s - Levemir increased to 25 + 20 with Novolog 6TIDAC and ISS # Headache - Fioricet Q6H #Hx of HTN - Started on Losartan here, holding for now due to low BP #Newly diagnosed HLD - Chol 204, LDL 122, HDL 62 - Lipitor 40 HS started #FEN - DM diet #Prophylaxis - On Eliquis 5 mg BID - Started Protonix 40mg #Dispo - Will monitor on M/S and attempt to wean off NRB Visit type - Emergency Visit Emergency Visit: Yes ED Registration Date: 01/25/20 Care time: The patient presented to the Emergency Department on the above date and was hospitalized for further evaluation of their emergent condition. - New Patient This patient is new to me today: No - Critical Care Critical Care patient: No ATTENDING PHYSICIAN STATEMENT I saw and evaluated the patient. I reviewed the resident's note and discussed the case with the resident. I agree with the resident's findings and plan as documented. SUBJECTIVE: OBJECTIVE: ASSESSMENT AND PLAN:
[2020-03-05] MEDS: ATORVASTATIN CA 40 MG TABLET (FP) PO SCH (21:16)
[2020-03-06] MEDS: guaiFENesin/CODEINE 10 ML UNIT-DOSE CUPS PO SCH ×6 (00:02→20:17)
[2020-03-06] MEDS: INSULIN (LEVEMIR) 100 UNITS/ML UNITS SQ SCH ×2 (06:10→21:15)
[2020-03-06] MEDS: Insulin (LOG) Aspart 100 UNITS/ML VIAL SQ SCH ×3 (06:10→17:29)
[2020-03-06] MEDS: INSULIN SLIDING SCALE (NOVOLOG) 1 VIAL SQ SCH ×5 (06:10→21:15)
[2020-03-06 07:36] LABS: BASO % 0.7 % (0-2.0); EOS % 9.1 % (0-4.5); HEMOGLOBIN 9.7 GM/dL (11.7-16.9); LYMPH % 39.4 % (8-40); MCHC 31.2 g/dl (32.0-35.9); MEAN PLT VOLUME 8.3 fl (7.5-11.1); MONO % 7.8 % (3.8-10.2); PLATELET COUNT 340 K/MM3 (134-434); RBC 4.02 M/mm3 (4.00-5.60); RDW 17.1 % (11.9-15.9); WHITE BLOOD COUNT 10.3 K/mm3 (4.0-10.0)
[2020-03-06 08:03] LABS: ALBUMIN 2.6 g/dl (3.4-5.0); BILIRUBIN,TOTAL 0.5 mg/dL (0.2-1); BLOOD UREA NITROGEN 19.1 mg/dL (7-18); CALCIUM 8.5 mg/dL (8.5-10.1); PHOSPHOROUS 4.6 mg/dL (2.5-4.9); TOT PROT 5.5 g/dl (6.4-8.2)
[2020-03-06] MEDS ORDERED: PT OWN MED DRAWER 7, Y5N ONE (09:24)
[2020-03-06] MEDS: ASCORBIC ACID 500 MG TABLET (FP) PO SCH ×2 (09:34→21:01)
[2020-03-06] MEDS: CHOLECALCIFEROL (VIT D3) 1,000 UNIT (25 MCG) TABLET PO SCH (09:34)
[2020-03-06] MEDS: ASPIRIN 81 MG CHEWABLE TABLETS PO SCH (09:34)
[2020-03-06] MEDS: PANTOPRAZOLE 40 MG TABLET PO SCH (09:34)
[2020-03-06] MEDS: CLOTRIMAZOLE 1% CREAM 15 GM TUBE TP SCH ×2 (09:35→21:01)
[2020-03-06] MEDS: APIXABAN 5 MG TABLET PO SCH ×2 (09:35→21:01)
[2020-03-06] MEDS: ZINC SULFATE 220 MG CAPSULE (FP) PO SCH ×2 (09:35→21:01)
[2020-03-06] MEDS: BUDESONIDE/FORMETEROL FUMARATE 80/4.5 mcg INHALER IH SCH ×2 (09:36→21:16)
--- NOTE | 2020-03-06 12:29 | PN ---
Physical Exam: SUBJECTIVE: Patient seen and examined at the bedside, seated and quite SOB, reports deterioration cough/SOB after stopping Decadron yesterday OBJECTIVE: Vital Signs Period Temp Pulse Resp BP Sys/Miner Pulse Ox Last 24 Hr 98.0 F-98.6 F 73-111 20-20 105-133/50-78 97-100 GENERAL: AOx3 HEAD: Normal with no signs of trauma. EYES: PERRL, extraocular movements intact, sclera anicteric, conjunctiva clear. No ptosis. NECK: Trachea midline, full range of motion, supple. LUNGS: On NRB. Decreased air entry throughout, with mild wheezing noted B/L HEART: RRR. Normal S1, S2. No murmurs noted. ABDOMEN: Obese. Soft, nontender, obese, no guarding, no rebound, no hepatosplenomegaly, no masses. EXTREMITIES: 2+ pulses, warm, well-perfused, no edema. NEUROLOGICAL: Cranial nerves II through XII grossly intact. Normal speech, gait not observed. Laboratory Results - last 24 hr 03/05/20 03/05/20 03/05/20 12:31 17:04 21:18 WBC RBC Hgb Hct MCV MCH MCHC RDW Plt Count MPV Absolute Neuts (auto) Neutrophils % Lymphocytes % Monocytes % Eosinophils % Basophils % Nucleated RBC % D-Dimer Sodium Potassium Chloride Carbon Dioxide Anion Gap BUN Creatinine Est GFR (CKD-EPI)AfAm Est GFR (CKD-EPI)NonAf POC Glucometer 108 245 160 Random Glucose Calcium Phosphorus Magnesium Ferritin Total Bilirubin AST ALT Alkaline Phosphatase LD Total C-Reactive Protein Total Protein Albumin 03/06/20 03/06/20 03/06/20 05:51 06:15 06:15 WBC 10.3 H RBC 4.02 Hgb 9.7 L Hct 31.0 L MCV 77.0 L MCH 24.0 L MCHC 31.2 L RDW 17.1 H Plt Count 340 MPV 8.3 Absolute Neuts (auto) 4.4 Neutrophils % 43.0 Lymphocytes % 39.4 Monocytes % 7.8 Eosinophils % 9.1 H Basophils % 0.7 Nucleated RBC % 0 D-Dimer Sodium 140 Potassium 4.0 Chloride 101 Carbon Dioxide 37 H Anion Gap 3 L BUN 19.1 H Creatinine 1.0 Est GFR (CKD-EPI)AfAm 112.51 Est GFR (CKD-EPI)NonAf 97.08 POC Glucometer 179 Random Glucose 165 H Calcium 8.5 Phosphorus 4.6 Magnesium 2.0 Ferritin 503.6 H Total Bilirubin 0.5 AST 14 L ALT 29 Alkaline Phosphatase 86 LD Total 492 H C-Reactive Protein 1.2 H Total Protein 5.5 L Albumin 2.6 L 03/06/20 03/06/20 06:15 11:38 WBC RBC Hgb Hct MCV MCH MCHC RDW Plt Count MPV Absolute Neuts (auto) Neutrophils % Lymphocytes % Monocytes % Eosinophils % Basophils % Nucleated RBC % D-Dimer 1115 H Sodium Potassium Chloride Carbon Dioxide Anion Gap BUN Creatinine Est GFR (CKD-EPI)AfAm Est GFR (CKD-EPI)NonAf POC Glucometer 171 Random Glucose Calcium Phosphorus Magnesium Ferritin Total Bilirubin AST ALT Alkaline Phosphatase LD Total C-Reactive Protein Total Protein Albumin Active Medications Generic Name Dose Route Start Last Admin Trade Name Freq PRN Reason Stop Dose Admin Acetaminophen 650 mg 03/01/20 15:34 Tylenol - PO Q6H PRN FEVER Acetaminophen/Butalbital/Caffeine 1 tablet 03/01/20 15:34 Fioricet - PO Q6H PRN HEADACHE Albuterol Sulfate 1 puff 03/01/20 15:34 Ventolin Hfa Inhaler - IH Q4H PRN SHORT OF BREATH/WHEEZING Alprazolam 0.5 mg 03/01/20 15:34 Xanax - PO Q12H PRN ANXIETY Apixaban 5 mg 03/01/20 22:00 03/06/20 09:35 Eliquis - PO 5 mg BID SARAH Administration Ascorbic Acid 500 mg 03/01/20 22:00 03/06/20 09:34 Vitamin C - PO 500 mg BID SARAH Administration Aspirin 81 mg 03/02/20 10:00 03/06/20 09:34 Asa - PO 81 mg DAILY SARAH Administration Atorvastatin Calcium 40 mg 03/01/20 22:00 03/05/20 21:16 Lipitor - PO 40 mg HS SARAH Administration Benzocaine/Menthol 1 each 03/01/20 10:20 03/01/20 10:35 Cepacol Lozenge - MM 1 each Q4H PRN Administration SORE THROAT Budesonide/Formoterol Fumarate 2 puff 03/01/20 22:00 03/06/20 09:36 Symbicort 80/4.5mcg - IH 2 puff BID SARAH Administration Cholecalciferol 2,000 unit 03/02/20 10:00 03/06/20 09:34 Vitamin D3 - PO 2,000 unit DAILY SARAH Administration Clotrimazole 1 applic 03/01/20 22:00 03/06/20 09:35 Lotrimin 1% Cream - TP Not Given BID SARAH Guaifenesin/Codeine Phosphate 10 ml 03/02/20 12:15 03/06/20 09:34 Robitussin Ac - PO 10 ml Q4H SARAH Administration Insulin Aspart 1 vial 03/01/20 16:30 03/06/20 06:10 Novolog Vial Sliding Scale - SQ 2 units ACHS SARAH Administration Protocol Insulin Aspart 6 units 03/04/20 12:19 03/06/20 06:10 Novolog SQ 6 units TIDAC SARAH Administration Insulin Detemir 25 units 03/04/20 07:00 03/06/20 06:10 Levemir Vial SQ 25 units ACBK SARAH Administration Insulin Detemir 20 units 03/04/20 12:19 03/05/20 21:19 Levemir Vial SQ 20 units HS SARAH Administration Melatonin 5 mg 03/01/20 22:00 03/03/20 21:41 Melatonin PO 5 mg HS PRN Administration INSOMNIA Pantoprazole Sodium 40 mg 03/04/20 10:00 03/06/20 09:34 Protonix - PO 40 mg DAILY SARAH Administration Zinc Sulfate 220 mg 03/01/20 22:00 03/06/20 09:35 Orazinc - PO 220 mg BID SARAH Administration ASSESSMENT/PLAN: 34M with HTN (no home meds) and newly diagnosed DM on this admission. He was admitted 01/24 after he presented with 3-4 days of increasing dyspnea and diarrhea after testing positive for COVID. #COVID 19 Pneumonia - Completed abx, remdesivir course, tocilizumab infusion, convalescent plasma transfusion - SpO2 in high 90s on NRB - CXR (03/03): No significant interval change, diffuse BL interstitial and airspace opacities/inf - CTA pending pt's ability to lie flat - Decadron 8mg Q8H 2 day course completed (03/03-) - Pulm consult: 1x Lasix trial administered (03/05), Decadron DCed - As per respiratory therapist, attempted to downgrade NRB to High Flow yesterday, pt immediately de-satted to under 90% - dDimer 900 -> 1,100, on Eliquis 5mg BID - Vitamin C, Vitamin D, Zinc - COVID (02/27) NEG # Atypical Chest Pain - Resolved, likely 2/2 excessive coughing, Robitussin Q4H - ACS ruled out: TNI neg x2; EKG showed NSR, no acute ischemic changes - Echo when stable/able to lie flat as per cardio - Plan for ECHO and MIBI when feasible with outpatient Cardio F/U with Dr. Rossi #Newly diagnosed DM - HbA1c 10.5, POC glucose in late 200s-300s - Levemir increased to 25 + 20 with Novolog 6TIDAC and ISS # Headache - Fioricet Q6H #Hx of HTN - Started on Losartan here, holding for now due to low BP #Newly diagnosed HLD - Chol 204, LDL 122, HDL 62 - Lipitor 40 HS started #FEN - DM diet #Prophylaxis - On Eliquis 5 mg BID - Started Protonix 40mg #Dispo - Will monitor on M/S and attempt to wean off NRB Visit type - Emergency Visit Emergency Visit: Yes ED Registration Date: 01/25/20 Care time: The patient presented to the Emergency Department on the above date and was hospitalized for further evaluation of their emergent condition. - New Patient This patient is new to me today: No - Critical Care Critical Care patient: No ATTENDING PHYSICIAN STATEMENT I saw and evaluated the patient. I reviewed the resident's note and discussed the case with the resident. I agree with the resident's findings and plan as documented. SUBJECTIVE: OBJECTIVE: ASSESSMENT AND PLAN:
--- NOTE | 2020-03-06 12:45 | PN ---
Teaching Attending Note Name of Resident: Vince Gardner ATTENDING PHYSICIAN STATEMENT I saw and evaluated the patient. I reviewed the resident's note and discussed the case with the resident. I agree with the resident's findings and plan as documented. SUBJECTIVE: Seen and examined at bedside. Patient without any specific new complaints. Sti ll requiring nonrebreather OBJECTIVE: Last Vital Signs Temp Pulse Resp BP Pulse Ox 98.6 F 73 20 132/78 97 03/06/20 06:35 03/06/20 06:35 03/06/20 06:35 03/06/20 06:35 03/06/20 09:10 PE: Per resdient note Labs/Imaging: reviewed ASSESSMENT/PLAN: 34M with HTN (no home meds) and newly diagnosed DM on this admission. He was admitted 01/24 after he presented with 3-4 days of increasing dyspnea and diarrhea after testing positive for COVID. Has had extended stay and remains dependent on nonrebreather to maintain oxygenation #COVID 19 Pneumonia Has had extended stay and remains dependent on nonrebreather to maintain oxygenation - Completed abx, remdesivir course, tocilizumab infusion, convalescent plasma transfusion - dDimer downtrending, on Eliquis 5mg BID - Vitamin C, Vitamin D, Zinc - COVID (02/27) NEG -f/u pulm recs #DM With hyperglycemia - HbA1c 10.5, POC glucose in late 200s-300s - Levemir increased to 25 + 20 with Novolog 6TIDAC and ISS # Headache - Fioricet Q6H PRN # HLD - Lipitor 40 #Prophylaxis - On Eliquis 5 mg BID - Cont Protonix 40mg #Dispo - Continue to attempt to wean off oxygen as tolerated
--- NOTE | 2020-03-06 13:56 | PN ---
Progress Note, Physician Chief Complaint: Pt A&Ox3;sitting up at bedside, using ventimask. Wants to go home, and hopes trial of nasal cannula is successful and allows this. History of Present Illness: 34yo black man with morbid obesity, DM, hyperlipidemia, ?sleep apnea, recent COVID positive test, presents to the ED with shortness of breath and extreme fatigue. Recently on azithromycin course without relief. Saturating at 98% on room air, placed on 2L nasal cannula upon arrival with symptomatic relief. Patient has been progressively short of breath since diagnosis. Called because pt c/o strong, sharp left breast pain that began today at rest, lasted about an hour. Pt says he had had a similar pain, though less severe and of shorter duration while in the ICU. Pt denies personal or family hx of heart disease; his father has DM. Pt never smoked; does not drink to excess. 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 - Current Medication List Current Medications: Active Medications Acetaminophen (Tylenol -) 650 mg PO Q6H PRN PRN Reason: FEVER Acetaminophen/Butalbital/Caffeine (Fioricet -) 1 tablet PO Q6H PRN PRN Reason: HEADACHE Albuterol Sulfate (Ventolin Hfa Inhaler -) 1 puff IH Q4H PRN PRN Reason: SHORT OF BREATH/WHEEZING Alprazolam (Xanax -) 0.5 mg PO Q12H PRN PRN Reason: ANXIETY Apixaban (Eliquis -) 5 mg PO BID PENDING SALE TO [facility] Last Admin: 03/06/20 09:35 Dose: 5 mg Documented by: Ascorbic Acid (Vitamin C -) 500 mg PO BID PENDING SALE TO [facility] Last Admin: 03/06/20 09:34 Dose: 500 mg Documented by: Aspirin (Asa -) 81 mg PO DAILY PENDING SALE TO [facility] Last Admin: 03/06/20 09:34 Dose: 81 mg Documented by: Atorvastatin Calcium (Lipitor -) 40 mg PO HS PENDING SALE TO [facility] Last Admin: 03/05/20 21:16 Dose: 40 mg Documented by: Benzocaine/Menthol (Cepacol Lozenge -) 1 each MM Q4H PRN PRN Reason: SORE THROAT Last Admin: 03/01/20 10:35 Dose: 1 each Documented by: Budesonide/Formoterol Fumarate (Symbicort 80/4.5mcg -) 2 puff IH BID PENDING SALE TO [facility] Last Admin: 03/06/20 09:36 Dose: 2 puff Documented by: Cholecalciferol (Vitamin D3 -) 2,000 unit PO DAILY PENDING SALE TO [facility] Last Admin: 03/06/20 09:34 Dose: 2,000 unit Documented by: Clotrimazole (Lotrimin 1% Cream -) 1 applic TP BID PENDING SALE TO [facility] Last Admin: 03/06/20 09:35 Dose: Not Given Documented by: Guaifenesin/Codeine Phosphate (Robitussin Ac -) 10 ml PO Q4H PENDING SALE TO [facility] Last Admin: 03/06/20 09:34 Dose: 10 ml Documented by: Insulin Aspart (Novolog Vial Sliding Scale -) 1 vial SQ ACHS PENDING SALE TO [facility]; Protocol Last Admin: 03/06/20 12:46 Dose: 2 units Documented by: Insulin Aspart (Novolog) 6 units SQ TIDAC PENDING SALE TO [facility] Last Admin: 03/06/20 12:46 Dose: 6 units Documented by: Insulin Detemir (Levemir Vial) 25 units SQ ACBK PENDING SALE TO [facility] Last Admin: 03/06/20 06:10 Dose: 25 units Documented by: Insulin Detemir (Levemir Vial) 20 units SQ HS PENDING SALE TO [facility] Last Admin: 03/05/20 21:19 Dose: 20 units Documented by: Melatonin (Melatonin) 5 mg PO HS PRN PRN Reason: INSOMNIA Last Admin: 03/03/20 21:41 Dose: 5 mg Documented by: Pantoprazole Sodium (Protonix -) 40 mg PO DAILY PENDING SALE TO [facility] Last Admin: 03/06/20 09:34 Dose: 40 mg Documented by: Zinc Sulfate (Orazinc -) 220 mg PO BID PENDING SALE TO [facility] Last Admin: 03/06/20 09:35 Dose: 220 mg Documented by: - Objective Vital Signs: Vital Signs Temperature 98.6 F 03/06/20 06:35 Pulse Rate 73 03/06/20 06:35 Respiratory Rate 20 03/06/20 06:35 Blood Pressure 132/78 03/06/20 06:35 O2 Sat by Pulse Oximetry (%) 99 03/06/20 13:30 Constitutional: Yes: Anxious, Obese Eyes: Yes: WNL HENT: Yes: WNL Neck: Yes: Trachea Midline Cardiovascular: Yes: S1, S2, S4 Respiratory: Yes: Diminished Gastrointestinal: Yes: Soft, Abdomen, Obese ...Rectal Exam: Yes: Deferred Genitourinary: No: Anuria Musculoskeletal: Yes: Joint Stiffness, Muscle Weakness Extremities: Yes: Cool Edema: No Peripheral Pulses WNL: Yes Integumentary: Yes: WNL Neurological: Yes: Alert, Oriented, Weakness Labs: CBC, BMP 03/06/20 06:15 03/06/20 06:15 INR, PTT INR 1.00 (0.83-1.09) 01/25/20 16:29 Fibrinogen 468.0 mg/dL (238-498) 02/25/20 13:05 Abnormal Lab Results 03/13/20 03/13/20 05:25 05:25 WBC 11.7 H Hgb 10.1 L Hct 32.1 L MCV 77.4 L MCH 24.2 L MCHC 31.3 L RDW 17.4 H Absolute Neuts (auto) 8.9 H Myelocytes % (Man) 3 H D Sodium 135 L Chloride 97 L Anion Gap 6 L BUN 26.2 H Random Glucose 351 H Ferritin 568.5 H AST 10 L Alkaline Phosphatase 130 H LD Total 469 H C-Reactive Protein 0.4 H Total Protein 6.2 L Albumin 2.9 L - ....Imaging Chest X-ray: Image Reviewed EKG: Image Reviewed Assessment/Plan COVID pneumonia ARDS Hyperlipidemia DM Morbid Obesity Atypical chest pain Plan: COVID not detected (02/28/20) Bronchodilators, O2, steroids, and antibiotics 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 TNI < 0.02 x 2 EKG:NSR; no acute changes LDL cholesterol 122 mg/dL; keep < 70 mg;dL with statin, diet change. On apixaban for anticoagulation. BUN/Cr, electrolytes, daily weight, Is and Os. ECHO for LVEF, wall motion, valve status. Now on losartan (HTN; diastolic dysfunction; DM). Plan on stress MIBI, due to multiple CAD risks, when stable.
[2020-03-06] MEDS ORDERED: INSULIN (NOVOLOG) ASPART 100 UNITS/ML 10ML VIAL ONE (18:30)
[2020-03-06] MEDS: ATORVASTATIN CA 40 MG TABLET (FP) PO SCH (21:01)
[2020-03-07] MEDS: guaiFENesin/CODEINE 10 ML UNIT-DOSE CUPS PO SCH ×6 (00:15→21:50)
[2020-03-07] MEDS: INSULIN (LEVEMIR) 100 UNITS/ML UNITS SQ SCH ×2 (06:17→21:51)
[2020-03-07] MEDS: INSULIN SLIDING SCALE (NOVOLOG) 1 VIAL SQ SCH ×4 (06:18→21:51)
[2020-03-07] MEDS: Insulin (LOG) Aspart 100 UNITS/ML VIAL SQ SCH ×3 (06:18→17:09)
[2020-03-07 07:35] LABS: BASO % 0.5 % (0-2.0); EOS % 8.9 % (0-4.5); HEMATOCRIT 31.9 % (35.4-49); HEMOGLOBIN 10.2 GM/dL (11.7-16.9); LYMPH % 36.5 % (8-40); MCH 24.6 pg (25.7-33.7); MCHC 31.9 g/dl (32.0-35.9); MEAN CELL VOLUME 77.1 fl (80-96); MEAN PLT VOLUME 8.3 fl (7.5-11.1); NEUT % 44.1 % (42.8-82.8); PLATELET COUNT 330 K/MM3 (134-434); RBC 4.14 M/mm3 (4.00-5.60); RDW 17.2 % (11.9-15.9); WHITE BLOOD COUNT 9.7 K/mm3 (4.0-10.0)
[2020-03-07 08:00] LABS: ALBUMIN 2.6 g/dl (3.4-5.0); BILIRUBIN,TOTAL 0.6 mg/dL (0.2-1); BLOOD UREA NITROGEN 13.5 mg/dL (7-18); CALCIUM 8.7 mg/dL (8.5-10.1); CREATININE 0.8 mg/dL (0.55-1.3); MAGNESIUM 1.9 mg/dL (1.8-2.4); PHOSPHOROUS 4.2 mg/dL (2.5-4.9); POTASSIUM 3.7 mmol/L (3.5-5.1); TOT PROT 5.8 g/dl (6.4-8.2)
[2020-03-07] MEDS ORDERED: PT OWN MED DRAWER 7, Y5N ONE (09:12)
[2020-03-07] MEDS: CHOLECALCIFEROL (VIT D3) 1,000 UNIT (25 MCG) TABLET PO SCH (09:15)
[2020-03-07] MEDS: ASCORBIC ACID 500 MG TABLET (FP) PO SCH ×2 (09:15→21:50)
[2020-03-07] MEDS: BENZOCAINE/MENTH/CETYLPYRD CL 1 EACH LOZENGE MM PRN (09:15)
[2020-03-07] MEDS: APIXABAN 5 MG TABLET PO SCH ×2 (09:16→21:50)
[2020-03-07] MEDS: CLOTRIMAZOLE 1% CREAM 15 GM TUBE TP SCH ×2 (09:16→21:57)
[2020-03-07] MEDS: ZINC SULFATE 220 MG CAPSULE (FP) PO SCH ×2 (09:16→21:50)
[2020-03-07] MEDS: BUDESONIDE/FORMETEROL FUMARATE 80/4.5 mcg INHALER IH SCH ×2 (09:16→21:50)
[2020-03-07] MEDS: ASPIRIN 81 MG CHEWABLE TABLETS PO SCH (09:16)
[2020-03-07] MEDS: PANTOPRAZOLE 40 MG TABLET PO SCH (09:16)
[2020-03-07] MEDS ORDERED: IRON SUCROSE INJECTION 100 MG in SODIUM CHLORIDE 95 ML IVPB ONE (12:03)
[2020-03-07] MEDS ORDERED: INSULIN (NOVOLOG) ASPART 100 UNITS/ML 10ML VIAL ONE ×2 (12:04→21:12)
--- NOTE | 2020-03-07 13:14 | PN ---
Progress Note (short form) - Note Progress Note: Remains on NRBM alternating with NIPPV. Voice and cough and worse today. Intake & Output 03/04/20 03/05/20 03/06/20 03/07/20 23:59 23:59 23:59 23:59 Intake Total 185 889 7363 Output Total 300 1600 800 Balance 400 680 -295 -800 Last Vital Signs Temp Pulse Resp BP Pulse Ox 98.3 F 112 H 24 H 109/50 L 92 L 03/07/20 08:52 03/07/20 08:52 03/07/20 08:52 03/07/20 08:52 03/07/20 09:00 Home Medication List Medication Instructions Recorded Confirmed Type NK [No Known Home Medication] 03/02/20 03/02/20 History Active Medications Generic Name Dose Route Start Last Admin Trade Name Freq PRN Reason Stop Dose Admin Acetaminophen 650 mg 03/01/20 15:34 Tylenol - PO Q6H PRN FEVER Albuterol Sulfate 1 puff 03/01/20 15:34 Ventolin Hfa Inhaler - IH Q4H PRN SHORT OF BREATH/WHEEZING Apixaban 5 mg 03/01/20 22:00 03/07/20 09:16 Eliquis - PO 5 mg BID SARAH Administration Ascorbic Acid 500 mg 03/01/20 22:00 03/07/20 09:15 Vitamin C - PO 500 mg BID SARAH Administration Aspirin 81 mg 03/02/20 10:00 03/07/20 09:16 Asa - PO 81 mg DAILY SARAH Administration Atorvastatin Calcium 40 mg 03/01/20 22:00 03/06/20 21:01 Lipitor - PO 40 mg HS SARAH Administration Benzocaine/Menthol 1 each 03/01/20 10:20 03/07/20 09:15 Cepacol Lozenge - MM 1 each Q4H PRN Administration SORE THROAT Budesonide/Formoterol Fumarate 2 puff 03/01/20 22:00 03/07/20 09:16 Symbicort 80/4.5mcg - IH 2 puff BID SARAH Administration Cholecalciferol 2,000 unit 03/02/20 10:00 03/07/20 09:15 Vitamin D3 - PO 2,000 unit DAILY SARAH Administration Clotrimazole 1 applic 03/01/20 22:00 03/07/20 09:16 Lotrimin 1% Cream - TP Not Given BID SARAH Dexamethasone Sodium Phosphate 6 mg 03/07/20 13:15 Decadron Injection - IVPUSH Q8H-IV SARAH Guaifenesin/Codeine Phosphate 10 ml 03/02/20 12:15 03/07/20 12:09 Robitussin Ac - PO 10 ml Q4H SARAH Administration Insulin Aspart 1 vial 03/01/20 16:30 03/07/20 12:08 Novolog Vial Sliding Scale - SQ 2 units ACHS SARAH Administration Protocol Insulin Aspart 6 units 03/04/20 12:19 03/07/20 12:09 Novolog SQ 6 units TIDAC SARAH Administration Insulin Detemir 25 units 03/04/20 07:00 03/07/20 06:17 Levemir Vial SQ 25 units ACBK SARAH Administration Insulin Detemir 20 units 03/04/20 12:19 03/06/20 21:15 Levemir Vial SQ 20 units HS SARAH Administration Melatonin 5 mg 03/01/20 22:00 03/03/20 21:41 Melatonin PO 5 mg HS PRN Administration INSOMNIA Pantoprazole Sodium 40 mg 03/04/20 10:00 03/07/20 09:16 Protonix - PO 40 mg DAILY SARAH Administration Zinc Sulfate 220 mg 03/01/20 22:00 03/07/20 09:16 Orazinc - PO 220 mg BID SARAH Administration Gen: Mildly tachypneic at rest Heart: RRR Lung: Diminished throughout Abd: soft, nontender Ext: no edema Laboratory Results - last 24 hr 03/06/20 03/06/20 03/07/20 17:18 21:13 06:16 WBC RBC Hgb Hct MCV MCH MCHC RDW Plt Count MPV Absolute Neuts (auto) Neutrophils % Lymphocytes % Monocytes % Eosinophils % Basophils % Nucleated RBC % D-Dimer Sodium Potassium Chloride Carbon Dioxide Anion Gap BUN Creatinine Est GFR (CKD-EPI)AfAm Est GFR (CKD-EPI)NonAf POC Glucometer 169 188 136 Random Glucose Calcium Phosphorus Magnesium Iron TIBC Iron Saturation Unsaturated IBC Ferritin Total Bilirubin AST ALT Alkaline Phosphatase LD Total C-Reactive Protein Total Protein Albumin 03/07/20 03/07/20 03/07/20 07:05 07:05 07:05 WBC 9.7 RBC 4.14 Hgb 10.2 L Hct 31.9 L MCV 77.1 L MCH 24.6 L MCHC 31.9 L RDW 17.2 H Plt Count 330 MPV 8.3 Absolute Neuts (auto) 4.3 Neutrophils % 44.1 Lymphocytes % 36.5 Monocytes % 10.0 Eosinophils % 8.9 H Basophils % 0.5 Nucleated RBC % 0 D-Dimer 1249 H Sodium 140 Potassium 3.7 Chloride 100 Carbon Dioxide 35 H Anion Gap 5 L BUN 13.5 Creatinine 0.8 Est GFR (CKD-EPI)AfAm 134.14 Est GFR (CKD-EPI)NonAf 115.74 POC Glucometer Random Glucose 128 H Calcium 8.7 Phosphorus 4.2 Magnesium 1.9 Iron 27 L TIBC 267 Iron Saturation 10 L Unsaturated IBC 240 Ferritin 526.4 H Total Bilirubin 0.6 AST 15 ALT 28 Alkaline Phosphatase 72 LD Total 533 H C-Reactive Protein 1.8 H Total Protein 5.8 L Albumin 2.6 L 03/07/20 12:08 WBC RBC Hgb Hct MCV MCH MCHC RDW Plt Count MPV Absolute Neuts (auto) Neutrophils % Lymphocytes % Monocytes % Eosinophils % Basophils % Nucleated RBC % D-Dimer Sodium Potassium Chloride Carbon Dioxide Anion Gap BUN Creatinine Est GFR (CKD-EPI)AfAm Est GFR (CKD-EPI)NonAf POC Glucometer 164 Random Glucose Calcium Phosphorus Magnesium Iron TIBC Iron Saturation Unsaturated IBC Ferritin Total Bilirubin AST ALT Alkaline Phosphatase LD Total C-Reactive Protein Total Protein Albumin A/P Acute Hypoxic Respiratory Failure COVID Pneumonia ARDS HTN DM Anemia - Decadron - s/p remdesivir course - s/p tocilizumab infusion - s/p convalescent plasma transfusion - cough suppressants - continue anticoagulation - completed empiric antibiotics - O2 to keep SpO2 >90% - NIPPV at night & PRN - For DME set up today Dr Cavazos
[2020-03-07] MEDS: DEXAMETHASONE SOD PHOSPHATE 4 MG/1 ML VIAL IVPUSH SCH ×2 (13:56→17:10)
--- NOTE | 2020-03-07 15:20 | PN ---
Teaching Attending Note Name of Resident: Mynor Curry ATTENDING PHYSICIAN STATEMENT I saw and evaluated the patient. I reviewed the resident's note and discussed the case with the resident. I agree with the resident's findings and plan as documented. SUBJECTIVE: Seen and examined at bedside. Voice is hoarse today. Started on steroids aga in. Complained of chest pain and seen by cardiology, had resolved by the time seen by medicine. Noted to be iron deficient OBJECTIVE: Last Vital Signs Temp Pulse Resp BP Pulse Ox 97.5 F L 80 22 H 107/61 92 L 03/07/20 14:00 03/07/20 14:00 03/07/20 14:00 03/07/20 14:00 03/07/20 09:00 PE: Per resdient note Labs/Imaging: reviewed ASSESSMENT/PLAN: 34M with HTN (no home meds) and newly diagnosed DM on this admission. He was admitted 01/24 after he presented with 3-4 days of increasing dyspnea and diarrhea after testing positive for COVID. Has had extended stay and remains dependent on nonrebreather to maintain oxygenation #COVID 19 Pneumonia Has had extended stay and remains dependent on nonrebreather to maintain oxygenation - started on decadron due to cough, laryngitis - Completed abx, remdesivir course, tocilizumab infusion, convalescent plasma transfusion - dDimer downtrending, on Eliquis 5mg BID - Vitamin C, Vitamin D, Zinc - COVID (02/27) NEG -f/u pulm recs #Iron deficiency anemia 2/2 repeated blood draws over prolonged stay -IV iron 100mg x3 days #atypical CP Cards on board: appreciate recs -s/p Echo: poor quality, LV function normal -Stress MIBI when stable #DM With hyperglycemia - HbA1c 10.5, POC glucose in late 200s-300s - Levemir 25 + 20 with Novolog 6TIDAC and ISS # Headache - Fioricet Q6H PRN # HLD - Lipitor 40 #Prophylaxis - On Eliquis 5 mg BID - Cont Protonix 40mg #Dispo - Continue to attempt to wean off oxygen as tolerated
--- NOTE | 2020-03-07 16:25 | PN ---
Physical Exam: SUBJECTIVE: Patient seen and examined. C/o worsening cough with bloody sputum. Denies any other acute complaints. OBJECTIVE: Vital Signs Period Temp Pulse Resp BP Sys/Miner Pulse Ox Last 24 Hr 97.5 F-98.3 F 74-112 20-24 100-109/50-61 92-100 GENERAL: AOx3 HEAD: Normal with no signs of trauma. EYES: PERRL, extraocular movements intact, sclera anicteric, conjunctiva clear. No ptosis. NECK: Trachea midline, full range of motion, supple. LUNGS: On NRB. Decreased air entry throughout, with mild wheezing noted B/L HEART: RRR. Normal S1, S2. No murmurs noted. ABDOMEN: Obese. Soft, nontender, obese, no guarding, no rebound, no hepatosplenomegaly, no masses. EXTREMITIES: 2+ pulses, warm, well-perfused, no edema. NEUROLOGICAL: Cranial nerves II through XII grossly intact. Normal speech, gait not observed. Laboratory Results - last 24 hr 03/06/20 03/06/20 03/07/20 17:18 21:13 06:16 WBC RBC Hgb Hct MCV MCH MCHC RDW Plt Count MPV Absolute Neuts (auto) Neutrophils % Lymphocytes % Monocytes % Eosinophils % Basophils % Nucleated RBC % D-Dimer Sodium Potassium Chloride Carbon Dioxide Anion Gap BUN Creatinine Est GFR (CKD-EPI)AfAm Est GFR (CKD-EPI)NonAf POC Glucometer 169 188 136 Random Glucose Calcium Phosphorus Magnesium Iron TIBC Iron Saturation Unsaturated IBC Ferritin Total Bilirubin AST ALT Alkaline Phosphatase LD Total C-Reactive Protein Total Protein Albumin 03/07/20 03/07/20 03/07/20 07:05 07:05 07:05 WBC 9.7 RBC 4.14 Hgb 10.2 L Hct 31.9 L MCV 77.1 L MCH 24.6 L MCHC 31.9 L RDW 17.2 H Plt Count 330 MPV 8.3 Absolute Neuts (auto) 4.3 Neutrophils % 44.1 Lymphocytes % 36.5 Monocytes % 10.0 Eosinophils % 8.9 H Basophils % 0.5 Nucleated RBC % 0 D-Dimer 1249 H Sodium 140 Potassium 3.7 Chloride 100 Carbon Dioxide 35 H Anion Gap 5 L BUN 13.5 Creatinine 0.8 Est GFR (CKD-EPI)AfAm 134.14 Est GFR (CKD-EPI)NonAf 115.74 POC Glucometer Random Glucose 128 H Calcium 8.7 Phosphorus 4.2 Magnesium 1.9 Iron 27 L TIBC 267 Iron Saturation 10 L Unsaturated IBC 240 Ferritin 526.4 H Total Bilirubin 0.6 AST 15 ALT 28 Alkaline Phosphatase 72 LD Total 533 H C-Reactive Protein 1.8 H Total Protein 5.8 L Albumin 2.6 L 03/07/20 12:08 WBC RBC Hgb Hct MCV MCH MCHC RDW Plt Count MPV Absolute Neuts (auto) Neutrophils % Lymphocytes % Monocytes % Eosinophils % Basophils % Nucleated RBC % D-Dimer Sodium Potassium Chloride Carbon Dioxide Anion Gap BUN Creatinine Est GFR (CKD-EPI)AfAm Est GFR (CKD-EPI)NonAf POC Glucometer 164 Random Glucose Calcium Phosphorus Magnesium Iron TIBC Iron Saturation Unsaturated IBC Ferritin Total Bilirubin AST ALT Alkaline Phosphatase LD Total C-Reactive Protein Total Protein Albumin Active Medications Generic Name Dose Route Start Last Admin Trade Name Freq PRN Reason Stop Dose Admin Acetaminophen 650 mg 03/01/20 15:34 Tylenol - PO Q6H PRN FEVER Albuterol Sulfate 1 puff 03/01/20 15:34 Ventolin Hfa Inhaler - IH Q4H PRN SHORT OF BREATH/WHEEZING Apixaban 5 mg 03/01/20 22:00 03/07/20 09:16 Eliquis - PO 5 mg BID SARAH Administration Ascorbic Acid 500 mg 03/01/20 22:00 03/07/20 09:15 Vitamin C - PO 500 mg BID SARAH Administration Aspirin 81 mg 03/02/20 10:00 03/07/20 09:16 Asa - PO 81 mg DAILY SARAH Administration Atorvastatin Calcium 40 mg 03/01/20 22:00 03/06/20 21:01 Lipitor - PO 40 mg HS SARAH Administration Benzocaine/Menthol 1 each 03/01/20 10:20 03/07/20 09:15 Cepacol Lozenge - MM 1 each Q4H PRN Administration SORE THROAT Budesonide/Formoterol Fumarate 2 puff 03/01/20 22:00 03/07/20 09:16 Symbicort 80/4.5mcg - IH 2 puff BID SARAH Administration Cholecalciferol 2,000 unit 03/02/20 10:00 03/07/20 09:15 Vitamin D3 - PO 2,000 unit DAILY SARAH Administration Clotrimazole 1 applic 03/01/20 22:00 03/07/20 09:16 Lotrimin 1% Cream - TP Not Given BID SARAH Dexamethasone Sodium Phosphate 6 mg 03/07/20 13:15 03/07/20 13:56 Decadron Injection - IVPUSH 6 mg Q8H-IV SARAH Administration Guaifenesin/Codeine Phosphate 10 ml 03/02/20 12:15 03/07/20 12:09 Robitussin Ac - PO 10 ml Q4H SARAH Administration Insulin Aspart 1 vial 03/01/20 16:30 03/07/20 12:08 Novolog Vial Sliding Scale - SQ 2 units ACHS SARAH Administration Protocol Insulin Aspart 6 units 03/04/20 12:19 03/07/20 12:09 Novolog SQ 6 units TIDAC SARAH Administration Insulin Detemir 25 units 03/04/20 07:00 03/07/20 06:17 Levemir Vial SQ 25 units ACBK SARAH Administration Insulin Detemir 20 units 03/04/20 12:19 03/06/20 21:15 Levemir Vial SQ 20 units HS SARAH Administration Melatonin 5 mg 03/01/20 22:00 03/03/20 21:41 Melatonin PO 5 mg HS PRN Administration INSOMNIA Pantoprazole Sodium 40 mg 03/04/20 10:00 03/07/20 09:16 Protonix - PO 40 mg DAILY SARAH Administration Zinc Sulfate 220 mg 03/01/20 22:00 03/07/20 09:16 Orazinc - PO 220 mg BID SARAH Administration ASSESSMENT/PLAN: 34M with HTN (no home meds) and newly diagnosed DM on this admission. He was admitted 01/24 after he presented with 3-4 days of increasing dyspnea and diarrhea after testing positive for COVID. #COVID 19 Pneumonia - Completed abx, remdesivir course, tocilizumab infusion, convalescent plasma transfusion - SpO2 in high 90s on NRB - CXR (03/03): No significant interval change, diffuse BL interstitial and airspace opacities/inf - CTA pending pt's ability to lie flat - Decadron restarted by pulm today as pt not improving - As per respiratory therapist, attempted to downgrade NRB to High Flow yesterday, pt immediately de-satted to under 90% - dDimer uptrending, on Eliquis 5mg BID, will no longer trend biomarkers as it is now futile and will not affect mgmt. - Vitamin C, Vitamin D, Zinc - COVID (6/) NEG # Atypical Chest Pain - Resolved, likely 2/2 excessive coughing, Robitussin Q4H - ACS ruled out: TNI neg x2; EKG showed NSR, no acute ischemic changes - Echo when stable/able to lie flat as per cardio - Plan for ECHO and MIBI when feasible with outpatient Cardio F/U with Dr. Rossi #Newly diagnosed DM - HbA1c 10.5, POC glucose in late 200s-300s - Levemir increased to 25 + 20 with Novolog 6TIDAC and ISS # Headache - Fioricet Q6H #Hx of HTN - Started on Losartan here, holding for now due to low BP #Newly diagnosed HLD - Chol 204, LDL 122, HDL 62 - Lipitor 40 HS started #FEN - DM diet #Prophylaxis - On Eliquis 5 mg BID - Started Protonix 40mg #Dispo - Will monitor on M/S and attempt to wean off NRB Visit type - Emergency Visit Emergency Visit: Yes ED Registration Date: 01/25/20 Care time: The patient presented to the Emergency Department on the above date and was hospitalized for further evaluation of their emergent condition. - New Patient This patient is new to me today: No - Critical Care Critical Care patient: No - Discharge Referral Referred to [facility] Med [facility] No ATTENDING PHYSICIAN STATEMENT I saw and evaluated the patient. I reviewed the resident's note and discussed the case with the resident. I agree with the resident's findings and plan as documented. SUBJECTIVE: OBJECTIVE: ASSESSMENT AND PLAN:
--- NOTE | 2020-03-07 18:34 | PN ---
Progress Note, Physician History of Present Illness: 34yo male with recent COVID positive test presents to the ED with shortness of breath and extreme fatigue. Recently on azithromycin course without relief. Saturating at 98% on room air, placed on 2L nasal cannula upon arrival with symptomatic relief. Patient has been progressively short of breath since diagnosis. - Current Medication List Current Medications: Active Medications Acetaminophen (Tylenol -) 650 mg PO Q6H PRN PRN Reason: FEVER Albuterol Sulfate (Ventolin Hfa Inhaler -) 1 puff IH Q4H PRN PRN Reason: SHORT OF BREATH/WHEEZING Apixaban (Eliquis -) 5 mg PO BID [facility] Last Admin: 03/07/20 09:16 Dose: 5 mg Documented by: Ascorbic Acid (Vitamin C -) 500 mg PO BID [facility] Last Admin: 03/07/20 09:15 Dose: 500 mg Documented by: Aspirin (Asa -) 81 mg PO DAILY [facility] Last Admin: 03/07/20 09:16 Dose: 81 mg Documented by: Atorvastatin Calcium (Lipitor -) 40 mg PO HS [facility] Last Admin: 03/06/20 21:01 Dose: 40 mg Documented by: Benzocaine/Menthol (Cepacol Lozenge -) 1 each MM Q4H PRN PRN Reason: SORE THROAT Last Admin: 03/07/20 09:15 Dose: 1 each Documented by: Budesonide/Formoterol Fumarate (Symbicort 80/4.5mcg -) 2 puff IH BID [facility] Last Admin: 03/07/20 09:16 Dose: 2 puff Documented by: Cholecalciferol (Vitamin D3 -) 2,000 unit PO DAILY [facility] Last Admin: 03/07/20 09:15 Dose: 2,000 unit Documented by: Clotrimazole (Lotrimin 1% Cream -) 1 applic TP BID [facility] Last Admin: 03/07/20 09:16 Dose: Not Given Documented by: Dexamethasone Sodium Phosphate (Decadron Injection -) 6 mg IVPUSH Q8H-IV [facility] Last Admin: 03/07/20 17:10 Dose: 6 mg Documented by: Guaifenesin/Codeine Phosphate (Robitussin Ac -) 10 ml PO Q4H [facility] Last Admin: 03/07/20 17:10 Dose: 10 ml Documented by: Insulin Aspart (Novolog Vial Sliding Scale -) 1 vial SQ [facility]; Protocol Last Admin: 03/07/20 17:09 Dose: 6 units Documented by: Insulin Aspart (Novolog) 6 units SQ TIDAC [facility] Last Admin: 03/07/20 17:09 Dose: 6 units Documented by: Insulin Detemir (Levemir Vial) 25 units SQ ACBK [facility] Last Admin: 03/07/20 06:17 Dose: 25 units Documented by: Insulin Detemir (Levemir Vial) 20 units SQ HS [facility] Last Admin: 03/06/20 21:15 Dose: 20 units Documented by: Melatonin (Melatonin) 5 mg PO HS PRN PRN Reason: INSOMNIA Last Admin: 03/03/20 21:41 Dose: 5 mg Documented by: Pantoprazole Sodium (Protonix -) 40 mg PO DAILY [facility] Last Admin: 03/07/20 09:16 Dose: 40 mg Documented by: Zinc Sulfate (Orazinc -) 220 mg PO BID [facility] Last Admin: 03/07/20 09:16 Dose: 220 mg Documented by: - Objective Vital Signs: Vital Signs Temperature 99 F 03/07/20 17:56 Pulse Rate 82 03/07/20 17:56 Respiratory Rate 20 03/07/20 17:56 Blood Pressure 110/60 03/07/20 17:56 O2 Sat by Pulse Oximetry (%) 92 L 03/07/20 09:00 Eyes: Yes: WNL, Conjunctiva Clear, EOM Intact HENT: Yes: WNL, Atraumatic, Normocephalic Neck: Yes: WNL, Supple, Trachea Midline Cardiovascular: Yes: WNL, Regular Rate and Rhythm Respiratory: Yes: Diminished Gastrointestinal: Yes: WNL, Normal Bowel Sounds Genitourinary: Yes: WNL Musculoskeletal: Yes: WNL Extremities: Yes: WNL Edema: No Integumentary: Yes: WNL Neurological: Yes: WNL, Alert, Oriented ...Motor Strength: WNL Psychiatric: Yes: WNL Labs: CBC, BMP 03/07/20 07:05 03/07/20 07:05 INR, PTT INR 1.00 (0.83-1.09) 01/25/20 16:29 Fibrinogen 468.0 mg/dL (238-498) 02/25/20 13:05 Problem List - Problems (1) Acute hypoxemic respiratory failure Code(s): J96.01 - ACUTE RESPIRATORY FAILURE WITH HYPOXIA (2) COVID-19 Code(s): U07.1 - COVID POSITIVE (3) HTN (hypertension) Code(s): I10 - ESSENTIAL (PRIMARY) HYPERTENSION (4) REYNALDO (obstructive sleep apnea) Code(s): G47.33 - OBSTRUCTIVE SLEEP APNEA (ADULT) (PEDIATRIC) (5) Obesity Code(s): E66.9 - OBESITY, UNSPECIFIED (6) Bronchitis Code(s): J40 - BRONCHITIS, NOT SPECIFIED ACUTE OR CHRONIC (7) Cough Code(s): R05 - COUGH Assessment/Plan Assessment/Plan s/p COVID pneumonia ARDS Hyperlipidemia DM Morbid Obesity Atypical chest pain Plan: COVID not detected (02/28/20) Bronchodilators, O2, steroids, and antibiotics per slot machine key person. TNI < 0.02 x 2 EKG:NSR; no acute changes LDL cholesterol 122 mg/dL; keep < 70 mg;dL with statin, diet change. On apixaban for anticoagulation. BUN/Cr, electrolytes, daily weight, Is and Os. ECHO TDS LVEF,nl Now on losartan (HTN; diastolic dysfunction; DM). Plan on stress MIBI, due to multiple CAD risks, when stable.
[2020-03-07] MEDS: ATORVASTATIN CA 40 MG TABLET (FP) PO SCH (21:50)
[2020-03-08] MEDS: DEXAMETHASONE SOD PHOSPHATE 4 MG/1 ML VIAL IVPUSH SCH ×3 (01:47→17:10)
[2020-03-08] MEDS: guaiFENesin/CODEINE 10 ML UNIT-DOSE CUPS PO SCH ×6 (01:48→20:24)
[2020-03-08] MEDS: INSULIN SLIDING SCALE (NOVOLOG) 1 VIAL SQ SCH ×4 (06:06→21:57)
[2020-03-08] MEDS: Insulin (LOG) Aspart 100 UNITS/ML VIAL SQ SCH ×3 (06:07→17:10)
[2020-03-08] MEDS: INSULIN (LEVEMIR) 100 UNITS/ML UNITS SQ SCH ×2 (06:09→21:56)
--- NOTE | 2020-03-08 07:30 | PN ---
Physical Exam: SUBJECTIVE: Patient seen and examined. He tolerated NRB at 100% Sao2 overnight per nursing report. OBJECTIVE: Vital Signs Period Temp Pulse Resp BP Sys/Miner Pulse Ox Last 24 Hr 97.5 F-99 F 74-112 20-24 107-133/50-74 92-99 GENERAL: The patient is awake, alert, and fully oriented, in no acute distress. LUNGS: Breath sounds reduced b/l, decreased air entry. HEART: Regular rate and rhythm, S1, S2 without murmur, rub or gallop. ABDOMEN: Soft, nontender, nondistended. EXTREMITIES: 2+ pulses, warm, well-perfused, no edema. Laboratory Results - last 24 hr 03/07/20 03/07/20 03/07/20 07:05 07:05 07:05 WBC 9.7 RBC 4.14 Hgb 10.2 L Hct 31.9 L MCV 77.1 L MCH 24.6 L MCHC 31.9 L RDW 17.2 H Plt Count 330 MPV 8.3 Absolute Neuts (auto) 4.3 Neutrophils % 44.1 Lymphocytes % 36.5 Monocytes % 10.0 Eosinophils % 8.9 H Basophils % 0.5 Nucleated RBC % 0 D-Dimer 1249 H Sodium 140 Potassium 3.7 Chloride 100 Carbon Dioxide 35 H Anion Gap 5 L BUN 13.5 Creatinine 0.8 Est GFR (CKD-EPI)AfAm 134.14 Est GFR (CKD-EPI)NonAf 115.74 POC Glucometer Random Glucose 128 H Calcium 8.7 Phosphorus 4.2 Magnesium 1.9 Iron 27 L TIBC 267 Iron Saturation 10 L Unsaturated IBC 240 Ferritin 526.4 H Total Bilirubin 0.6 AST 15 ALT 28 Alkaline Phosphatase 72 LD Total 533 H C-Reactive Protein 1.8 H Total Protein 5.8 L Albumin 2.6 L 03/07/20 03/07/20 03/07/20 12:08 17:09 21:48 WBC RBC Hgb Hct MCV MCH MCHC RDW Plt Count MPV Absolute Neuts (auto) Neutrophils % Lymphocytes % Monocytes % Eosinophils % Basophils % Nucleated RBC % D-Dimer Sodium Potassium Chloride Carbon Dioxide Anion Gap BUN Creatinine Est GFR (CKD-EPI)AfAm Est GFR (CKD-EPI)NonAf POC Glucometer 164 266 276 Random Glucose Calcium Phosphorus Magnesium Iron TIBC Iron Saturation Unsaturated IBC Ferritin Total Bilirubin AST ALT Alkaline Phosphatase LD Total C-Reactive Protein Total Protein Albumin 03/08/20 06:05 WBC RBC Hgb Hct MCV MCH MCHC RDW Plt Count MPV Absolute Neuts (auto) Neutrophils % Lymphocytes % Monocytes % Eosinophils % Basophils % Nucleated RBC % D-Dimer Sodium Potassium Chloride Carbon Dioxide Anion Gap BUN Creatinine Est GFR (CKD-EPI)AfAm Est GFR (CKD-EPI)NonAf POC Glucometer 286 Random Glucose Calcium Phosphorus Magnesium Iron TIBC Iron Saturation Unsaturated IBC Ferritin Total Bilirubin AST ALT Alkaline Phosphatase LD Total C-Reactive Protein Total Protein Albumin Active Medications Generic Name Dose Route Start Last Admin Trade Name Freq PRN Reason Stop Dose Admin Acetaminophen 650 mg 03/01/20 15:34 Tylenol - PO Q6H PRN FEVER Albuterol Sulfate 1 puff 03/01/20 15:34 Ventolin Hfa Inhaler - IH Q4H PRN SHORT OF BREATH/WHEEZING Apixaban 5 mg 03/01/20 22:00 03/07/20 21:50 Eliquis - PO 5 mg BID SARAH Administration Ascorbic Acid 500 mg 03/01/20 22:00 03/07/20 21:50 Vitamin C - PO 500 mg BID SARAH Administration Aspirin 81 mg 03/02/20 10:00 03/07/20 09:16 Asa - PO 81 mg DAILY SARAH Administration Atorvastatin Calcium 40 mg 03/01/20 22:00 03/07/20 21:50 Lipitor - PO 40 mg HS SARAH Administration Benzocaine/Menthol 1 each 03/01/20 10:20 03/07/20 09:15 Cepacol Lozenge - MM 1 each Q4H PRN Administration SORE THROAT Budesonide/Formoterol Fumarate 2 puff 03/01/20 22:00 03/07/20 21:50 Symbicort 80/4.5mcg - IH 2 puff BID SARAH Administration Cholecalciferol 2,000 unit 03/02/20 10:00 03/07/20 09:15 Vitamin D3 - PO 2,000 unit DAILY SARAH Administration Clotrimazole 1 applic 03/01/20 22:00 03/07/20 21:57 Lotrimin 1% Cream - TP Not Given BID SARAH Dexamethasone Sodium Phosphate 6 mg 03/07/20 13:15 03/08/20 01:47 Decadron Injection - IVPUSH 6 mg Q8H-IV SARAH Administration Guaifenesin/Codeine Phosphate 10 ml 03/02/20 12:15 03/08/20 05:40 Robitussin Ac - PO Not Given Q4H SARAH Insulin Aspart 1 vial 03/01/20 16:30 03/08/20 06:06 Novolog Vial Sliding Scale - SQ 6 units ACHS SARAH Administration Protocol Insulin Aspart 6 units 03/04/20 12:19 03/08/20 06:07 Novolog SQ 6 units TIDAC SARAH Administration Insulin Detemir 25 units 03/04/20 07:00 03/08/20 06:09 Levemir Vial SQ 25 units ACBK SARAH Administration Insulin Detemir 20 units 03/04/20 12:19 03/07/20 21:51 Levemir Vial SQ 20 units HS SARAH Administration Melatonin 5 mg 03/01/20 22:00 03/03/20 21:41 Melatonin PO 5 mg HS PRN Administration INSOMNIA Pantoprazole Sodium 40 mg 03/04/20 10:00 03/07/20 09:16 Protonix - PO 40 mg DAILY SARAH Administration Zinc Sulfate 220 mg 03/01/20 22:00 03/07/20 21:50 Orazinc - PO 220 mg BID SARAH Administration ASSESSMENT/PLAN: 34M with HTN (no home meds) and newly diagnosed DM on this admission. He was adm itted 01/24 after he presented with 3-4 days of increasing dyspnea and diarrhea after testing positive for COVID. #COVID 19 Pneumonia - Completed abx, remdesivir course, tocilizumab infusion, convalescent plasma transfusion - SpO2 in 98-100% on NRB, still on bipap at night though - CXR (03/07): No significant interval change, diffuse BL interstitial and airspace opacities/inf - CTA pending pt's ability to lie flat - Decadron restarted by pulm today as pt not improving - Eliquis 5mg BID - Vitamin C, Vitamin D, Zinc - COVID (02/27) NEG # Atypical Chest Pain - Resolved, likely 2/2 excessive coughing, Robitussin Q4H - ACS ruled out: TNI neg x2; EKG showed NSR, no acute ischemic changes - Echo when stable/able to lie flat as per cardio - Plan for ECHO and MIBI when feasible with outpatient Cardio F/U with Dr. Rossi #Newly diagnosed DM - HbA1c 10.5, POC glucose in late 200s-300s - Levemir increased 25->30 + 20->25 with Novolog 6TIDAC -> 8 TIDAC and ISS because of recent hyperglycemia while on decadron. - MAKE SURE TO COME BACK DOWN TO PREVIOUS DOSE WHEN DECADRON IS STOPPED # Headache - Fioricet Q6H #Hx of HTN - Started on Losartan here, holding for now due to low BP #Newly diagnosed HLD - Chol 204, LDL 122, HDL 62 - Lipitor 40 HS started #FEN - DM diet #Prophylaxis - On Eliquis 5 mg BID - Started Protonix 40mg #Dispo - Will monitor on M/S and attempt to wean off NRB Visit type - Emergency Visit Emergency Visit: Yes ED Registration Date: 01/25/20 Care time: The patient presented to the Emergency Department on the above date and was hospitalized for further evaluation of their emergent condition. - New Patient This patient is new to me today: No - Critical Care Critical Care patient: No - Discharge Referral Referred to [facility] Med P.C.: No ATTENDING PHYSICIAN STATEMENT I saw and evaluated the patient. I reviewed the resident's note and discussed the case with the resident. I agree with the resident's findings and plan as documented. SUBJECTIVE: OBJECTIVE: ASSESSMENT AND PLAN:
[2020-03-08] MEDS ORDERED: IRON SUCROSE INJECTION 100 MG in SODIUM CHLORIDE 95 ML IVPB ONE (07:32)
[2020-03-08 07:49] LABS: BASO % 0.2 % (0-2.0); EOS % 0.1 % (0-4.5); HEMATOCRIT 32.4 % (35.4-49); HEMOGLOBIN 10.2 GM/dL (11.7-16.9); LYMPH % 18.9 % (8-40); MCH 24.3 pg (25.7-33.7); MCHC 31.6 g/dl (32.0-35.9); MEAN CELL VOLUME 76.7 fl (80-96); MEAN PLT VOLUME 8.4 fl (7.5-11.1); NEUT % 78.8 % (42.8-82.8); PLATELET COUNT 345 K/MM3 (134-434); RBC 4.23 M/mm3 (4.00-5.60); RDW 16.7 % (11.9-15.9); WHITE BLOOD COUNT 8.1 K/mm3 (4.0-10.0)
--- NOTE | 2020-03-08 08:17 | PN ---
Progress Note, Physician History of Present Illness: A/P Acute Hypoxic Respiratory Failure COVID Pneumonia ARDS HTN DM Anemia - Decadron - s/p remdesivir course - s/p tocilizumab infusion - s/p convalescent plasma transfusion - cough suppressants - continue anticoagulation - completed empiric antibiotics - O2 to keep SpO2 >90% - NIPPV at night & PRN - For DME set up today - Current Medication List Current Medications: Active Medications Acetaminophen (Tylenol -) 650 mg PO Q6H PRN PRN Reason: FEVER Albuterol Sulfate (Ventolin Hfa Inhaler -) 1 puff IH Q4H PRN PRN Reason: SHORT OF BREATH/WHEEZING Apixaban (Eliquis -) 5 mg PO BID [facility] Last Admin: 03/07/20 21:50 Dose: 5 mg Documented by: Ascorbic Acid (Vitamin C -) 500 mg PO BID [facility] Last Admin: 03/07/20 21:50 Dose: 500 mg Documented by: Aspirin (Asa -) 81 mg PO DAILY [facility] Last Admin: 03/07/20 09:16 Dose: 81 mg Documented by: Atorvastatin Calcium (Lipitor -) 40 mg PO HS [facility] Last Admin: 03/07/20 21:50 Dose: 40 mg Documented by: Benzocaine/Menthol (Cepacol Lozenge -) 1 each MM Q4H PRN PRN Reason: SORE THROAT Last Admin: 03/07/20 09:15 Dose: 1 each Documented by: Budesonide/Formoterol Fumarate (Symbicort 80/4.5mcg -) 2 puff IH BID [facility] Last Admin: 03/07/20 21:50 Dose: 2 puff Documented by: Cholecalciferol (Vitamin D3 -) 2,000 unit PO DAILY [facility] Last Admin: 03/07/20 09:15 Dose: 2,000 unit Documented by: Clotrimazole (Lotrimin 1% Cream -) 1 applic TP BID [facility] Last Admin: 03/07/20 21:57 Dose: Not Given Documented by: Dexamethasone Sodium Phosphate (Decadron Injection -) 6 mg IVPUSH Q8H-IV [facility] Last Admin: 03/08/20 01:47 Dose: 6 mg Documented by: Guaifenesin/Codeine Phosphate (Robitussin Ac -) 10 ml PO Q4H [facility] Last Admin: 03/08/20 05:40 Dose: Not Given Documented by: Iron Sucrose 100 mg/ Sodium (Chloride) 100 mls @ 200 mls/hr IVPB ONCE ONE Stop: 03/09/20 09:29 Insulin Aspart (Novolog Vial Sliding Scale -) 1 vial SQ ACHS [facility]; Protocol Last Admin: 03/08/20 06:06 Dose: 6 units Documented by: Insulin Aspart (Novolog) 6 units SQ TIDAC [facility] Last Admin: 03/08/20 06:07 Dose: 6 units Documented by: Insulin Detemir (Levemir Vial) 25 units SQ ACBK [facility] Last Admin: 03/08/20 06:09 Dose: 25 units Documented by: Insulin Detemir (Levemir Vial) 20 units SQ HS [facility] Last Admin: 03/07/20 21:51 Dose: 20 units Documented by: Melatonin (Melatonin) 5 mg PO HS PRN PRN Reason: INSOMNIA Last Admin: 03/03/20 21:41 Dose: 5 mg Documented by: Pantoprazole Sodium (Protonix -) 40 mg PO DAILY [facility] Last Admin: 03/07/20 09:16 Dose: 40 mg Documented by: Zinc Sulfate (Orazinc -) 220 mg PO BID [facility] Last Admin: 03/07/20 21:50 Dose: 220 mg Documented by: - Objective Vital Signs: Vital Signs Temperature 97.7 F 03/08/20 08:01 Pulse Rate 73 03/08/20 08:01 Respiratory Rate 20 03/08/20 08:01 Blood Pressure 123/76 03/08/20 08:01 O2 Sat by Pulse Oximetry (%) 99 03/07/20 22:00 Labs: CBC, BMP 03/08/20 06:43 INR, PTT INR 1.00 (0.83-1.09) 01/25/20 16:29 Fibrinogen 468.0 mg/dL (238-498) 02/25/20 13:05 Problem List - Problems (1) Acute hypoxemic respiratory failure Code(s): J96.01 - ACUTE RESPIRATORY FAILURE WITH HYPOXIA (2) COVID-19 Code(s): U07.1 - COVID POSITIVE (3) HTN (hypertension) Code(s): I10 - ESSENTIAL (PRIMARY) HYPERTENSION (4) REYNALDO (obstructive sleep apnea) Code(s): G47.33 - OBSTRUCTIVE SLEEP APNEA (ADULT) (PEDIATRIC) (5) Obesity Code(s): E66.9 - OBESITY, UNSPECIFIED Assessment/Plan A/P Acute Hypoxic Respiratory Failure COVID Pneumonia ARDS HTN DM Anemia - Decadron - s/p remdesivir course - s/p tocilizumab infusion - s/p convalescent plasma transfusion - cough suppressants - continue anticoagulation - completed empiric antibiotics - O2 to keep SpO2 >90% - NIPPV at night & PRN
[2020-03-08 08:20] LABS: ALBUMIN 2.9 g/dl (3.4-5.0); BLOOD UREA NITROGEN 14.9 mg/dL (7-18); CALCIUM 9.2 mg/dL (8.5-10.1); POTASSIUM 5.3 mmol/L (3.5-5.1)
[2020-03-08 08:22] LABS: BILIRUBIN,TOTAL 0.6 mg/dL (0.2-1); CREATININE 0.9 mg/dL (0.55-1.3); TOT PROT 6.5 g/dl (6.4-8.2)
[2020-03-08] MEDS: ASCORBIC ACID 500 MG TABLET (FP) PO SCH ×2 (09:57→21:56)
[2020-03-08] MEDS: ASPIRIN 81 MG CHEWABLE TABLETS PO SCH (09:57)
[2020-03-08] MEDS: PANTOPRAZOLE 40 MG TABLET PO SCH (09:57)
[2020-03-08] MEDS: APIXABAN 5 MG TABLET PO SCH ×2 (09:57→21:56)
[2020-03-08] MEDS: BENZOCAINE/MENTH/CETYLPYRD CL 1 EACH LOZENGE MM PRN (09:57)
[2020-03-08] MEDS: CHOLECALCIFEROL (VIT D3) 1,000 UNIT (25 MCG) TABLET PO SCH (09:57)
[2020-03-08] MEDS: ZINC SULFATE 220 MG CAPSULE (FP) PO SCH ×2 (09:57→21:57)
[2020-03-08] MEDS: BUDESONIDE/FORMETEROL FUMARATE 80/4.5 mcg INHALER IH SCH ×2 (09:58→21:57)
[2020-03-08] MEDS: CLOTRIMAZOLE 1% CREAM 15 GM TUBE TP SCH ×2 (09:58→21:57)
--- NOTE | 2020-03-08 10:27 | PN ---
Progress Note, Physician History of Present Illness: 34yo male with recent COVID positive test presents to the ED with shortness of breath and extreme fatigue. Recently on azithromycin course without relief. Saturating at 98% on room air, placed on 2L nasal cannula upon arrival with symptomatic relief. Patient has been progressively short of breath since diagnosis. - Current Medication List Current Medications: Active Medications Acetaminophen (Tylenol -) 650 mg PO Q6H PRN PRN Reason: FEVER Albuterol Sulfate (Ventolin Hfa Inhaler -) 1 puff IH Q4H PRN PRN Reason: SHORT OF BREATH/WHEEZING Apixaban (Eliquis -) 5 mg PO BID [facility] Last Admin: 03/08/20 09:57 Dose: 5 mg Documented by: Ascorbic Acid (Vitamin C -) 500 mg PO BID [facility] Last Admin: 03/08/20 09:57 Dose: 500 mg Documented by: Aspirin (Asa -) 81 mg PO DAILY [facility] Last Admin: 03/08/20 09:57 Dose: 81 mg Documented by: Atorvastatin Calcium (Lipitor -) 40 mg PO HS [facility] Last Admin: 03/07/20 21:50 Dose: 40 mg Documented by: Benzocaine/Menthol (Cepacol Lozenge -) 1 each MM Q4H PRN PRN Reason: SORE THROAT Last Admin: 03/08/20 09:57 Dose: 1 each Documented by: Budesonide/Formoterol Fumarate (Symbicort 80/4.5mcg -) 2 puff IH BID [facility] Last Admin: 03/08/20 09:58 Dose: 2 puff Documented by: Cholecalciferol (Vitamin D3 -) 2,000 unit PO DAILY [facility] Last Admin: 03/08/20 09:57 Dose: 2,000 unit Documented by: Clotrimazole (Lotrimin 1% Cream -) 1 applic TP BID [facility] Last Admin: 03/08/20 09:58 Dose: Not Given Documented by: Dexamethasone Sodium Phosphate (Decadron Injection -) 6 mg IVPUSH Q8H-IV [facility] Last Admin: 03/08/20 09:57 Dose: 6 mg Documented by: Guaifenesin/Codeine Phosphate (Robitussin Ac -) 10 ml PO Q4H [facility] Last Admin: 03/08/20 09:57 Dose: 10 ml Documented by: Iron Sucrose 100 mg/ Sodium (Chloride) 100 mls @ 200 mls/hr IVPB ONCE ONE Stop: 03/09/20 09:29 Insulin Aspart (Novolog Vial Sliding Scale -) 1 vial SQ ACHS [facility]; Protocol Last Admin: 03/08/20 06:06 Dose: 6 units Documented by: Insulin Aspart (Novolog) 8 units SQ TIDAC [facility] Insulin Detemir (Levemir Vial) 30 units SQ ACBK [facility] Insulin Detemir (Levemir Vial) 25 units SQ HS [facility] Melatonin (Melatonin) 5 mg PO HS PRN PRN Reason: INSOMNIA Last Admin: 03/03/20 21:41 Dose: 5 mg Documented by: Pantoprazole Sodium (Protonix -) 40 mg PO DAILY [facility] Last Admin: 03/08/20 09:57 Dose: 40 mg Documented by: Zinc Sulfate (Orazinc -) 220 mg PO BID [facility] Last Admin: 03/08/20 09:57 Dose: 220 mg Documented by: - Objective Vital Signs: Vital Signs Temperature 97.7 F 03/08/20 08:01 Pulse Rate 73 03/08/20 08:01 Respiratory Rate 20 03/08/20 08:01 Blood Pressure 123/76 03/08/20 08:01 O2 Sat by Pulse Oximetry (%) 100 03/08/20 08:28 Eyes: Yes: WNL, Conjunctiva Clear, EOM Intact HENT: Yes: WNL, Atraumatic, Normocephalic Neck: Yes: WNL, Supple, Trachea Midline Cardiovascular: Yes: WNL, Regular Rate and Rhythm Respiratory: Yes: Diminished Gastrointestinal: Yes: WNL, Normal Bowel Sounds Genitourinary: Yes: WNL Musculoskeletal: Yes: WNL Extremities: Yes: WNL Edema: No Integumentary: Yes: WNL Neurological: Yes: WNL, Alert, Oriented ...Motor Strength: WNL Psychiatric: Yes: WNL Labs: CBC, BMP 03/08/20 06:43 03/08/20 06:43 INR, PTT INR 1.00 (0.83-1.09) 01/25/20 16:29 Fibrinogen 468.0 mg/dL (238-498) 02/25/20 13:05 Problem List - Problems (1) Acute hypoxemic respiratory failure Code(s): J96.01 - ACUTE RESPIRATORY FAILURE WITH HYPOXIA (2) COVID-19 Code(s): U07.1 - COVID POSITIVE (3) HTN (hypertension) Code(s): I10 - ESSENTIAL (PRIMARY) HYPERTENSION (4) REYNALDO (obstructive sleep apnea) Code(s): G47.33 - OBSTRUCTIVE SLEEP APNEA (ADULT) (PEDIATRIC) (5) Obesity Code(s): E66.9 - OBESITY, UNSPECIFIED (6) Bronchitis Code(s): J40 - BRONCHITIS, NOT SPECIFIED ACUTE OR CHRONIC (7) Cough Code(s): R05 - COUGH Assessment/Plan Assessment/Plan s/p COVID pneumonia ARDS Hyperlipidemia DM Morbid Obesity Atypical chest pain Plan: COVID not detected (02/28/20) Bronchodilators, O2, steroids, and antibiotics per beauty operator. TNI < 0.02 x 2 EKG:NSR; no acute changes LDL cholesterol 122 mg/dL; keep < 70 mg;dL with statin, diet change. On apixaban for anticoagulation. BUN/Cr, electrolytes, daily weight, Is and Os. ECHO TDS LVEF,nl Now on losartan (HTN; diastolic dysfunction; DM). Plan on stress MIBI, due to multiple CAD risks, when stable - could be done as outpatient.
--- NOTE | 2020-03-08 12:29 | PN ---
Progress Note (short form) - Note Progress Note: Remains on NRBM alternating with NIPPV. Voice and cough are better today. Intake & Output 03/05/20 03/06/20 03/07/20 03/08/20 23:59 23:59 23:59 23:59 Intake Total 980 1305 465 Output Total 300 1600 1950 1400 Balance 845 -394 -3185 -1400 Last Vital Signs Temp Pulse Resp BP Pulse Ox 97.7 F 111 H 20 123/76 83 L 03/08/20 08:01 03/08/20 12:07 03/08/20 08:01 03/08/20 08:01 03/08/20 12:07 Active Medications Acetaminophen (Tylenol -) 650 mg PO Q6H PRN PRN Reason: FEVER Albuterol Sulfate (Ventolin Hfa Inhaler -) 1 puff IH Q4H PRN PRN Reason: SHORT OF BREATH/WHEEZING Apixaban (Eliquis -) 5 mg PO BID [facility] Last Admin: 03/08/20 09:57 Dose: 5 mg Documented by: Ascorbic Acid (Vitamin C -) 500 mg PO BID [facility] Last Admin: 03/08/20 09:57 Dose: 500 mg Documented by: Aspirin (Asa -) 81 mg PO DAILY [facility] Last Admin: 03/08/20 09:57 Dose: 81 mg Documented by: Atorvastatin Calcium (Lipitor -) 40 mg PO HS [facility] Last Admin: 03/07/20 21:50 Dose: 40 mg Documented by: Benzocaine/Menthol (Cepacol Lozenge -) 1 each MM Q4H PRN PRN Reason: SORE THROAT Last Admin: 03/08/20 09:57 Dose: 1 each Documented by: Budesonide/Formoterol Fumarate (Symbicort 80/4.5mcg -) 2 puff IH BID [facility] Last Admin: 03/08/20 09:58 Dose: 2 puff Documented by: Cholecalciferol (Vitamin D3 -) 2,000 unit PO DAILY [facility] Last Admin: 03/08/20 09:57 Dose: 2,000 unit Documented by: Clotrimazole (Lotrimin 1% Cream -) 1 applic TP BID [facility] Last Admin: 03/08/20 09:58 Dose: Not Given Documented by: Dexamethasone Sodium Phosphate (Decadron Injection -) 6 mg IVPUSH Q8H-IV [facility] Last Admin: 03/08/20 09:57 Dose: 6 mg Documented by: Guaifenesin/Codeine Phosphate (Robitussin Ac -) 10 ml PO Q4H [facility] Last Admin: 03/08/20 09:57 Dose: 10 ml Documented by: Iron Sucrose 100 mg/ Sodium (Chloride) 100 mls @ 200 mls/hr IVPB ONCE ONE Stop: 03/09/20 09:29 Insulin Aspart (Novolog Vial Sliding Scale -) 1 vial SQ ACHS [facility]; Protocol Last Admin: 03/08/20 11:58 Dose: 8 units Documented by: Insulin Aspart (Novolog) 8 units SQ TIDAC [facility] Last Admin: 03/08/20 11:58 Dose: 8 units Documented by: Insulin Detemir (Levemir Vial) 30 units SQ ACBK [facility] Insulin Detemir (Levemir Vial) 25 units SQ HS [facility] Melatonin (Melatonin) 5 mg PO HS PRN PRN Reason: INSOMNIA Last Admin: 03/03/20 21:41 Dose: 5 mg Documented by: Pantoprazole Sodium (Protonix -) 40 mg PO DAILY [facility] Last Admin: 03/08/20 09:57 Dose: 40 mg Documented by: Zinc Sulfate (Orazinc -) 220 mg PO BID [facility] Last Admin: 03/08/20 09:57 Dose: 220 mg Documented by: Gen: Mildly tachypneic at rest Heart: RRR Lung: Diminished throughout Abd: soft, nontender Ext: no edema Laboratory Results - last 24 hr 03/07/20 03/07/20 03/08/20 17:09 21:48 06:05 WBC RBC Hgb Hct MCV MCH MCHC RDW Plt Count MPV Absolute Neuts (auto) Neutrophils % Lymphocytes % Monocytes % Eosinophils % Basophils % Nucleated RBC % Sodium Potassium Chloride Carbon Dioxide Anion Gap BUN Creatinine Est GFR (CKD-EPI)AfAm Est GFR (CKD-EPI)NonAf POC Glucometer 266 276 286 Random Glucose Calcium Total Bilirubin AST ALT Alkaline Phosphatase Total Protein Albumin 03/08/20 03/08/20 03/08/20 06:43 06:43 11:53 WBC 8.1 RBC 4.23 Hgb 10.2 L Hct 32.4 L MCV 76.7 L MCH 24.3 L MCHC 31.6 L RDW 16.7 H Plt Count 345 MPV 8.4 Absolute Neuts (auto) 6.4 Neutrophils % 78.8 D Lymphocytes % 18.9 D Monocytes % 2.0 L Eosinophils % 0.1 D Basophils % 0.2 Nucleated RBC % 0 Sodium 137 Potassium 5.3 H Chloride 99 Carbon Dioxide 36 H Anion Gap 2 L BUN 14.9 Creatinine 0.9 Est GFR (CKD-EPI)AfAm 127.80 Est GFR (CKD-EPI)NonAf 110.27 POC Glucometer 314 Random Glucose 285 H Calcium 9.2 Total Bilirubin 0.6 AST 15 ALT 37 Alkaline Phosphatase 108 Total Protein 6.5 Albumin 2.9 L A/P Acute Hypoxic Respiratory Failure COVID Pneumonia ARDS HTN DM Anemia - Decadron - s/p remdesivir course - s/p tocilizumab infusion - s/p convalescent plasma transfusion - cough suppressants - continue anticoagulation - completed empiric antibiotics - O2 to keep SpO2 >90% - NIPPV at night & PRN - For DME set up today Patient trialed on 4 L NC @ rest: Quickly desaturated to below 85%. Therefore, the patient will require yajaira Oxygen therapy with portability upon discharge with Oximizer pendant. Due to Chronic Respiratory Failure and advancement of Obstructive and Restrictive lung Disease with lack of gas exchange the patient requires ventilation via a non-invasive ventilator as BiPAP is no longer effective in treatment to effectively decrease work of breathing and to improve pulmonary status and prevent interruption or failure of respiratory support. Dr Cavazos
--- NOTE | 2020-03-08 14:11 | PN ---
Teaching Attending Note Name of Resident: Ani Gibbs ATTENDING PHYSICIAN STATEMENT I saw and evaluated the patient. I reviewed the resident's note and discussed the case with the resident. I agree with the resident's findings and plan as documented. SUBJECTIVE: Seen and examined at bedside. Voice is improved on steroids. Still requiring NRB. OBJECTIVE: Last Vital Signs Temp Pulse Resp BP Pulse Ox 97.7 F 111 H 20 123/76 83 L 03/08/20 08:01 03/08/20 12:07 03/08/20 08:01 03/08/20 08:01 03/08/20 12:07 PE: Per resdient note Labs/Imaging: reviewed ASSESSMENT/PLAN: 34M with HTN (no home meds) and newly diagnosed DM on this admission. He was admitted 01/24 after he presented with 3-4 days of increasing dyspnea and diarrhea after testing positive for COVID. Has had extended stay and remains dependent on nonrebreather to maintain oxygenation #COVID 19 Pneumonia Has had extended stay and remains dependent on nonrebreather to maintain oxygenation - started on decadron due to cough, laryngitis - Completed abx, remdesivir course, tocilizumab infusion, convalescent plasma transfusion - dDimer downtrending, on Eliquis 5mg BID - Vitamin C, Vitamin D, Zinc - COVID (02/27) NEG -f/u pulm recs #Iron deficiency anemia 2/2 repeated blood draws over prolonged stay -IV iron 100mg x3 days #atypical CP Cards on board: appreciate recs -s/p Echo: poor quality, LV function normal -Stress MIBI when stable #DM With hyperglycemia 2/2 steroids - HbA1c 10.5, POC glucose in late 200s-300s - Levemir 30 + 25 with Novolog 8TIDAC and ISS -when steroids are stopped pt should be reverted to levemir 25-20, 6U TIDAC # Headache - Fioricet Q6H PRN # HLD - Lipitor 40 #Prophylaxis - On Eliquis 5 mg BID - Cont Protonix 40mg #Dispo - Continue to attempt to wean off oxygen as tolerated
[2020-03-08] MEDS ORDERED: INSULIN (NOVOLOG) ASPART 100 UNITS/ML 10ML VIAL ONE (17:03)
[2020-03-08] MEDS: ATORVASTATIN CA 40 MG TABLET (FP) PO SCH (21:56)
[2020-03-09] MEDS: guaiFENesin/CODEINE 10 ML UNIT-DOSE CUPS PO SCH ×7 (00:18→21:50)
[2020-03-09] MEDS: DEXAMETHASONE SOD PHOSPHATE 4 MG/1 ML VIAL IVPUSH SCH ×4 (01:16→12:25)
[2020-03-09] MEDS: INSULIN SLIDING SCALE (NOVOLOG) 1 VIAL SQ SCH ×4 (06:36→21:57)
[2020-03-09] MEDS: Insulin (LOG) Aspart 100 UNITS/ML VIAL SQ SCH ×3 (06:36→16:30)
[2020-03-09] MEDS: INSULIN (LEVEMIR) 100 UNITS/ML UNITS SQ SCH ×2 (06:37→21:51)
[2020-03-09 06:51] LABS: HEMATOCRIT 32.1 % (35.4-49); HEMOGLOBIN 9.9 GM/dL (11.7-16.9); LYMPH % 13.3 % (8-40); MCH 23.9 pg (25.7-33.7); MCHC 30.9 g/dl (32.0-35.9); MEAN CELL VOLUME 77.3 fl (80-96); MEAN PLT VOLUME 8.8 fl (7.5-11.1); MONO % 3.1 % (3.8-10.2); NEUT % 82.6 % (42.8-82.8); PLATELET COUNT 326 K/MM3 (134-434); RBC 4.15 M/mm3 (4.00-5.60); RDW 17.1 % (11.9-15.9); WHITE BLOOD COUNT 14.1 K/mm3 (4.0-10.0)
[2020-03-09 07:25] LABS: ALBUMIN 2.9 g/dl (3.4-5.0); BILIRUBIN,TOTAL 0.9 mg/dL (0.2-1); BLOOD UREA NITROGEN 24.5 mg/dL (7-18); CALCIUM 9.1 mg/dL (8.5-10.1); CREATININE 1.2 mg/dL (0.55-1.3); POTASSIUM 4.7 mmol/L (3.5-5.1); TOT PROT 6.3 g/dl (6.4-8.2)
--- NOTE | 2020-03-09 07:26 | PN ---
Progress Note, Physician History of Present Illness: PULMONARY ALERT,ON 100%NRB,MORE COMFORTABLE IN PRONE POSITION,O2 SAT 100% - Current Medication List Current Medications: Active Medications Acetaminophen (Tylenol -) 650 mg PO Q6H PRN PRN Reason: FEVER Albuterol Sulfate (Ventolin Hfa Inhaler -) 1 puff IH Q4H PRN PRN Reason: SHORT OF BREATH/WHEEZING Apixaban (Eliquis -) 5 mg PO BID [facility] Last Admin: 03/08/20 21:56 Dose: 5 mg Documented by: Ascorbic Acid (Vitamin C -) 500 mg PO BID [facility] Last Admin: 03/08/20 21:56 Dose: 500 mg Documented by: Aspirin (Asa -) 81 mg PO DAILY [facility] Last Admin: 03/08/20 09:57 Dose: 81 mg Documented by: Atorvastatin Calcium (Lipitor -) 40 mg PO HS [facility] Last Admin: 03/08/20 21:56 Dose: 40 mg Documented by: Benzocaine/Menthol (Cepacol Lozenge -) 1 each MM Q4H PRN PRN Reason: SORE THROAT Last Admin: 03/08/20 09:57 Dose: 1 each Documented by: Budesonide/Formoterol Fumarate (Symbicort 80/4.5mcg -) 2 puff IH BID [facility] Last Admin: 03/08/20 21:57 Dose: 2 puff Documented by: Cholecalciferol (Vitamin D3 -) 2,000 unit PO DAILY [facility] Last Admin: 03/08/20 09:57 Dose: 2,000 unit Documented by: Clotrimazole (Lotrimin 1% Cream -) 1 applic TP BID [facility] Last Admin: 03/08/20 21:57 Dose: Not Given Documented by: Dexamethasone Sodium Phosphate (Decadron Injection -) 6 mg IVPUSH Q8H-IV [facility] Last Admin: 03/09/20 01:16 Dose: 6 mg Documented by: Guaifenesin/Codeine Phosphate (Robitussin Ac -) 10 ml PO Q4H [facility] Last Admin: 03/09/20 04:46 Dose: 10 ml Documented by: Iron Sucrose 100 mg/ Sodium (Chloride) 100 mls @ 200 mls/hr IVPB ONCE ONE Stop: 03/09/20 09:29 Insulin Aspart (Novolog) 8 units SQ TIDAC [facility] Last Admin: 03/09/20 06:36 Dose: 8 units Documented by: Insulin Aspart (Novolog Vial Sliding Scale -) 1 vial SQ ACHS [facility]; Protocol Last Admin: 03/09/20 06:36 Dose: 12 units Documented by: Insulin Detemir (Levemir Vial) 30 units SQ ACBK [facility] Last Admin: 03/09/20 06:37 Dose: 30 units Documented by: Insulin Detemir (Levemir Vial) 25 units SQ HS [facility] Last Admin: 03/08/20 21:56 Dose: 25 units Documented by: Melatonin (Melatonin) 5 mg PO HS PRN PRN Reason: INSOMNIA Last Admin: 03/03/20 21:41 Dose: 5 mg Documented by: Pantoprazole Sodium (Protonix -) 40 mg PO DAILY [facility] Last Admin: 03/08/20 09:57 Dose: 40 mg Documented by: Zinc Sulfate (Orazinc -) 220 mg PO BID [facility] Last Admin: 03/08/20 21:57 Dose: 220 mg Documented by: - Objective Vital Signs: Vital Signs Temperature 98.1 F 03/09/20 06:00 Pulse Rate 72 03/09/20 06:00 Respiratory Rate 03/09/20 06:00 Blood Pressure 124/63 03/09/20 06:00 O2 Sat by Pulse Oximetry (%) 96 03/08/20 22:00 Constitutional: Yes: Calm, Obese Eyes: Yes: WNL HENT: Yes: WNL Neck: Yes: WNL Cardiovascular: Yes: Regular Rate and Rhythm, S1, S2 Respiratory: Yes: Diminished Gastrointestinal: Yes: Normal Bowel Sounds, Soft Extremities: Yes: WNL Edema: No Labs: CBC, BMP 03/09/20 06:30 03/09/20 06:30 INR, PTT INR 1.00 (0.83-1.09) 01/25/20 16:29 Fibrinogen 468.0 mg/dL (238-498) 02/25/20 13:05 Problem List - Problems (1) Acute hypoxemic respiratory failure Code(s): J96.01 - ACUTE RESPIRATORY FAILURE WITH HYPOXIA (2) COVID-19 Code(s): U07.1 - COVID POSITIVE (3) HTN (hypertension) Code(s): I10 - ESSENTIAL (PRIMARY) HYPERTENSION (4) REYNALDO (obstructive sleep apnea) Code(s): G47.33 - OBSTRUCTIVE SLEEP APNEA (ADULT) (PEDIATRIC) (5) Obesity Code(s): E66.9 - OBESITY, UNSPECIFIED Assessment/Plan A/P Acute Hypoxic Respiratory Failure COVID Pneumonia ARDS HTN DM Anemia - Decadron taper - s/p remdesivir course - s/p tocilizumab infusion - s/p convalescent plasma transfusion - cough suppressants - continue anticoagulation - completed empiric antibiotics - O2 to keep SpO2 >90% - NIPPV at night & PRN patient will require home Oxygen therapy with portability upon discharge with Oximizer pendant. Due to Chronic Respiratory Failure and advancement of Obstructive and Restrictive lung Disease with lack of gas exchange the patient requires ventilation via a non-invasive ventilator as BiPAP is no longer effective in treatment to effectively decrease work of breathing and to improve pulmonary status and prevent interruption or failure of respiratory support. DR MCKEON
[2020-03-09] MEDS ORDERED: IRON SUCROSE INJECTION 100 MG in SODIUM CHLORIDE 95 ML IVPB ONE (09:00)
[2020-03-09] MEDS: PANTOPRAZOLE 40 MG TABLET PO SCH ×2 (09:59→11:55)
[2020-03-09] MEDS: ASPIRIN 81 MG CHEWABLE TABLETS PO SCH ×2 (09:59→11:56)
[2020-03-09] MEDS: ASCORBIC ACID 500 MG TABLET (FP) PO SCH ×3 (09:59→21:51)
[2020-03-09] MEDS: CHOLECALCIFEROL (VIT D3) 1,000 UNIT (25 MCG) TABLET PO SCH ×2 (09:59→11:55)
[2020-03-09] MEDS: APIXABAN 5 MG TABLET PO SCH ×3 (09:59→21:50)
[2020-03-09] MEDS: ZINC SULFATE 220 MG CAPSULE (FP) PO SCH ×3 (10:01→21:53)
[2020-03-09] MEDS: BUDESONIDE/FORMETEROL FUMARATE 80/4.5 mcg INHALER IH SCH ×3 (10:01→22:04)
[2020-03-09] MEDS: CLOTRIMAZOLE 1% CREAM 15 GM TUBE TP SCH ×3 (10:01→21:53)
--- NOTE | 2020-03-09 15:01 | PN ---
Progress Note, Physician History of Present Illness: 34yo male with recent COVID positive test presents to the ED with shortness of breath and extreme fatigue. Recently on azithromycin course without relief. Saturating at 98% on room air, placed on 2L nasal cannula upon arrival with symptomatic relief. Patient has been progressively short of breath since diagnosis. - Current Medication List Current Medications: Active Medications Acetaminophen (Tylenol -) 650 mg PO Q6H PRN PRN Reason: FEVER Albuterol Sulfate (Ventolin Hfa Inhaler -) 1 puff IH Q4H PRN PRN Reason: SHORT OF BREATH/WHEEZING Apixaban (Eliquis -) 5 mg PO BID [facility] Last Admin: 03/09/20 11:54 Dose: 5 mg Documented by: Ascorbic Acid (Vitamin C -) 500 mg PO BID [facility] Last Admin: 03/09/20 11:55 Dose: 500 mg Documented by: Aspirin (Asa -) 81 mg PO DAILY [facility] Last Admin: 03/09/20 11:56 Dose: 81 mg Documented by: Atorvastatin Calcium (Lipitor -) 40 mg PO HS [facility] Last Admin: 03/08/20 21:56 Dose: 40 mg Documented by: Benzocaine/Menthol (Cepacol Lozenge -) 1 each MM Q4H PRN PRN Reason: SORE THROAT Last Admin: 03/08/20 09:57 Dose: 1 each Documented by: Budesonide/Formoterol Fumarate (Symbicort 80/4.5mcg -) 2 puff IH BID [facility] Last Admin: 03/09/20 11:55 Dose: 2 puff Documented by: Cholecalciferol (Vitamin D3 -) 2,000 unit PO DAILY [facility] Last Admin: 03/09/20 11:55 Dose: 2,000 unit Documented by: Clotrimazole (Lotrimin 1% Cream -) 1 applic TP BID [facility] Last Admin: 03/09/20 11:54 Dose: 1 applic Documented by: Dexamethasone Sodium Phosphate (Decadron Injection -) 6 mg IVPUSH Q12H [facility] Last Admin: 03/09/20 12:25 Dose: Not Given Documented by: Guaifenesin/Codeine Phosphate (Robitussin Ac -) 10 ml PO Q4H [facility] Last Admin: 03/09/20 11:54 Dose: 10 ml Documented by: Insulin Aspart (Novolog Vial Sliding Scale -) [address] [facility]; Protocol Last Admin: 03/09/20 11:55 Dose: 6 units Documented by: Insulin Aspart (Novolog) 10 units SQ TIDAC [facility] Last Admin: 03/09/20 11:55 Dose: 10 units Documented by: Insulin Detemir (Levemir Vial) 30 units SQ ACBK [facility] Last Admin: 03/09/20 06:37 Dose: 30 units Documented by: Insulin Detemir (Levemir Vial) 25 units SQ HS [facility] Last Admin: 03/08/20 21:56 Dose: 25 units Documented by: Melatonin (Melatonin) 5 mg PO HS PRN PRN Reason: INSOMNIA Last Admin: 03/03/20 21:41 Dose: 5 mg Documented by: Pantoprazole Sodium (Protonix -) 40 mg PO DAILY [facility] Last Admin: 03/09/20 11:55 Dose: 40 mg Documented by: Zinc Sulfate (Orazinc -) 220 mg PO BID [facility] Last Admin: 03/09/20 11:55 Dose: 220 mg Documented by: - Objective Vital Signs: Vital Signs Temperature 98.7 F 03/09/20 14:01 Pulse Rate 83 03/09/20 14:01 Respiratory Rate 20 03/09/20 14:01 Blood Pressure 104/73 03/09/20 14:01 O2 Sat by Pulse Oximetry (%) 100 03/09/20 11:50 Eyes: Yes: WNL, Conjunctiva Clear, EOM Intact HENT: Yes: WNL, Atraumatic, Normocephalic Neck: Yes: WNL, Supple, Trachea Midline Cardiovascular: Yes: WNL, Regular Rate and Rhythm Respiratory: Yes: Diminished Gastrointestinal: Yes: WNL, Normal Bowel Sounds Genitourinary: Yes: WNL Musculoskeletal: Yes: WNL Extremities: Yes: WNL Edema: No Integumentary: Yes: WNL Neurological: Yes: WNL, Alert, Oriented ...Motor Strength: WNL Psychiatric: Yes: WNL Labs: CBC, BMP 03/09/20 06:30 03/09/20 06:30 INR, PTT INR 1.00 (0.83-1.09) 01/25/20 16:29 Fibrinogen 468.0 mg/dL (238-498) 02/25/20 13:05 Problem List - Problems (1) Acute hypoxemic respiratory failure Code(s): J96.01 - ACUTE RESPIRATORY FAILURE WITH HYPOXIA (2) COVID-19 Code(s): U07.1 - COVID POSITIVE (3) HTN (hypertension) Code(s): I10 - ESSENTIAL (PRIMARY) HYPERTENSION (4) REYNALDO (obstructive sleep apnea) Code(s): G47.33 - OBSTRUCTIVE SLEEP APNEA (ADULT) (PEDIATRIC) (5) Obesity Code(s): E66.9 - OBESITY, UNSPECIFIED (6) Bronchitis Code(s): J40 - BRONCHITIS, NOT SPECIFIED ACUTE OR CHRONIC (7) Cough Code(s): R05 - COUGH Assessment/Plan Assessment/Plan s/p COVID pneumonia ARDS Hyperlipidemia DM Morbid Obesity Atypical chest pain Plan: COVID not detected (02/28/20) Bronchodilators, O2, steroids, and antibiotics per greige goods examiner. TNI < 0.02 x 2 EKG:NSR; no acute changes LDL cholesterol 122 mg/dL; keep < 70 mg;dL with statin, diet change. On apixaban for anticoagulation. BUN/Cr, electrolytes, daily weight, Is and Os. ECHO TDS LVEF,nl Now on losartan (HTN; diastolic dysfunction; DM). Plan on stress MIBI, due to multiple CAD risks, when stable - could be done as outpatient.
[2020-03-09] MEDS ORDERED: INSULIN (NOVOLOG) ASPART 100 UNITS/ML 10ML VIAL ONE (16:27)
--- NOTE | 2020-03-09 17:44 | PN ---
Physical Exam: SUBJECTIVE: Patient seen and examined. No acute events overnight other than coughing which is improving. No acute complaints. OBJECTIVE: Vital Signs Period Temp Pulse Resp BP Sys/Miner Pulse Ox Last 24 Hr 98.1 F-98.7 F 72-84 20-20 104-137/63-82 96-100 GENERAL: The patient is awake, alert, and fully oriented, in no acute distress. LUNGS: Breath sounds reduced b/l, decreased air entry. HEART: Regular rate and rhythm, S1, S2 without murmur, rub or gallop. ABDOMEN: Soft, nontender, nondistended. EXTREMITIES: 2+ pulses, warm, well-perfused, no edema. Laboratory Results - last 24 hr 03/08/20 03/09/20 03/09/20 21:53 06:12 06:30 WBC 14.1 H RBC 4.15 Hgb 9.9 L Hct 32.1 L MCV 77.3 L MCH 23.9 L MCHC 30.9 L RDW 17.1 H Plt Count 326 MPV 8.8 Absolute Neuts (auto) 11.6 H Neutrophils % 82.6 Lymphocytes % 13.3 D Monocytes % 3.1 L Eosinophils % 0.0 D Basophils % 1.0 D Nucleated RBC % 0 Sodium Potassium Chloride Carbon Dioxide Anion Gap BUN Creatinine Est GFR (CKD-EPI)AfAm Est GFR (CKD-EPI)NonAf POC Glucometer 228 336 Random Glucose Calcium Total Bilirubin AST ALT Alkaline Phosphatase Total Protein Albumin 03/09/20 03/09/20 03/09/20 06:30 11:51 16:04 WBC RBC Hgb Hct MCV MCH MCHC RDW Plt Count MPV Absolute Neuts (auto) Neutrophils % Lymphocytes % Monocytes % Eosinophils % Basophils % Nucleated RBC % Sodium 138 Potassium 4.7 Chloride 101 Carbon Dioxide 33 H Anion Gap 4 L BUN 24.5 H Creatinine 1.2 Est GFR (CKD-EPI)AfAm 90.26 Est GFR (CKD-EPI)NonAf 77.87 POC Glucometer 221 196 Random Glucose 309 H Calcium 9.1 Total Bilirubin 0.9 AST 15 ALT 37 Alkaline Phosphatase 120 H Total Protein 6.3 L Albumin 2.9 L Active Medications Generic Name Dose Route Start Last Admin Trade Name Freq PRN Reason Stop Dose Admin Acetaminophen 650 mg 03/01/20 15:34 Tylenol - PO Q6H PRN FEVER Albuterol Sulfate 1 puff 03/01/20 15:34 Ventolin Hfa Inhaler - IH Q4H PRN SHORT OF BREATH/WHEEZING Apixaban 5 mg 03/01/20 22:00 03/09/20 11:54 Eliquis - PO 5 mg BID SARAH Administration Ascorbic Acid 500 mg 03/01/20 22:00 03/09/20 11:55 Vitamin C - PO 500 mg BID SARAH Administration Aspirin 81 mg 03/02/20 10:00 03/09/20 11:56 Asa - PO 81 mg DAILY SARAH Administration Atorvastatin Calcium 40 mg 03/01/20 22:00 03/08/20 21:56 Lipitor - PO 40 mg HS [facility] Administration Benzocaine/Menthol 1 each 03/01/20 10:20 03/08/20 09:57 Cepacol Lozenge - MM 1 each Q4H PRN Administration SORE THROAT Budesonide/Formoterol Fumarate 2 puff 03/01/20 22:00 03/09/20 11:55 Symbicort 80/4.5mcg - IH 2 puff BID SARAH Administration Cholecalciferol 2,000 unit 03/02/20 10:00 03/09/20 11:55 Vitamin D3 - PO 2,000 unit DAILY [facility] Administration Clotrimazole 1 applic 03/01/20 22:00 03/09/20 11:54 Lotrimin 1% Cream - TP 1 applic BID [facility] Administration Dexamethasone Sodium Phosphate 6 mg 03/09/20 12:15 03/09/20 12:25 Decadron Injection - IVPUSH Not Given Q12H [facility] Guaifenesin/Codeine Phosphate 10 ml 03/02/20 12:15 03/09/20 16:30 Robitussin Ac - PO 10 ml Q4H SARAH Administration Insulin Aspart 1 vial 03/08/20 16:23 03/09/20 16:29 Novolog Vial Sliding Scale - SQ 3 units ACHS [facility] Administration Protocol Insulin Aspart 10 units 03/09/20 09:12 03/09/20 16:30 Novolog SQ 10 units TIDAC SARAH Administration Insulin Detemir 30 units 03/09/20 07:00 03/09/20 06:37 Levemir Vial SQ 30 units ACBK SARAH Administration Insulin Detemir 25 units 03/08/20 22:00 03/08/20 21:56 Levemir Vial SQ 25 units HS SARAH Administration Melatonin 5 mg 03/01/20 22:00 03/03/20 21:41 Melatonin PO 5 mg HS PRN Administration INSOMNIA Pantoprazole Sodium 40 mg 03/04/20 10:00 03/09/20 11:55 Protonix - PO 40 mg DAILY SARAH Administration Zinc Sulfate 220 mg 03/01/20 22:00 03/09/20 11:55 Orazinc - PO 220 mg BID SARAH Administration ASSESSMENT/PLAN: 34M with HTN (no home meds) and newly diagnosed DM on this admission. He was admitted 01/24 after he presented with 3-4 days of increasing dyspnea and diarrhea after testing positive for COVID. #COVID 19 Pneumonia - Completed abx, remdesivir course, tocilizumab infusion, convalescent plasma transfusion - SpO2 in 98-100% on NRB, still on bipap at night though - CXR (03/07): No significant interval change, diffuse BL interstitial and airspace opacities/inf - CTA pending pt's ability to lie flat - Decadron now tapered to BID will eval the blood glucose daily as we decrease steroids further. - Eliquis 5mg BID - Vitamin C, Vitamin D, Zinc - COVID (02/27) NEG # Atypical Chest Pain - Resolved, likely 2/2 excessive coughing, Robitussin Q4H - ACS ruled out: TNI neg x2; EKG showed NSR, no acute ischemic changes - Echo when stable/able to lie flat as per cardio - Plan for ECHO and MIBI when feasible with outpatient Cardio F/U with Dr. Rossi #Newly diagnosed DM - HbA1c 10.5, POC glucose in late 200s-300s - Levemir increased 25->30 + 20->25 with Novolog 6TIDAC -> 8->10 TIDAC and ISS because of recent hyperglycemia while on decadron. - MAKE SURE TO COME BACK DOWN TO PREVIOUS DOSE WHEN DECADRON IS STOPPED # Headache - Fioricet Q6H #Hx of HTN - Started on Losartan here, holding for now due to low BP #Newly diagnosed HLD - Chol 204, LDL 122, HDL 62 - Lipitor 40 HS started #FEN - DM diet #Prophylaxis - On Eliquis 5 mg BID - Started Protonix 40mg #Dispo - Will monitor on M/S and attempt to wean off NRB Visit type - Emergency Visit Emergency Visit: Yes ED Registration Date: 01/25/20 Care time: The patient presented to the Emergency Department on the above date and was hospitalized for further evaluation of their emergent condition. - New Patient This patient is new to me today: No - Critical Care Critical Care patient: No - Discharge Referral Referred to [facility] Med P.C.: No ATTENDING PHYSICIAN STATEMENT I saw and evaluated the patient. I reviewed the resident's note and discussed the case with the resident. I agree with the resident's findings and plan as documented. SUBJECTIVE: OBJECTIVE: ASSESSMENT AND PLAN:
[2020-03-09] MEDS: MELATONIN 5 MG TABLETS PO PRN (21:51)
[2020-03-09] MEDS: ATORVASTATIN CA 40 MG TABLET (FP) PO SCH (21:51)
[2020-03-10] MEDS: DEXAMETHASONE SOD PHOSPHATE 4 MG/1 ML VIAL IVPUSH SCH ×2 (00:22→12:03)
[2020-03-10] MEDS: guaiFENesin/CODEINE 10 ML UNIT-DOSE CUPS PO SCH ×6 (00:23→20:21)
[2020-03-10] MEDS: INSULIN (LEVEMIR) 100 UNITS/ML UNITS SQ SCH ×2 (06:31→21:11)
[2020-03-10] MEDS: Insulin (LOG) Aspart 100 UNITS/ML VIAL SQ SCH ×3 (06:32→16:31)
[2020-03-10] MEDS: INSULIN SLIDING SCALE (NOVOLOG) 1 VIAL SQ SCH ×4 (06:32→21:12)
[2020-03-10 07:01] LABS: BASO % 0.7 % (0-2.0); EOS % 0.8 % (0-4.5); HEMATOCRIT 30.9 % (35.4-49); HEMOGLOBIN 9.8 GM/dL (11.7-16.9); LYMPH % 18.2 % (8-40); MCH 24.2 pg (25.7-33.7); MCHC 31.7 g/dl (32.0-35.9); MEAN CELL VOLUME 76.5 fl (80-96); MEAN PLT VOLUME 8.8 fl (7.5-11.1); NEUT % 74.3 % (42.8-82.8); PLATELET COUNT 351 K/MM3 (134-434); RBC 4.05 M/mm3 (4.00-5.60); RDW 17.1 % (11.9-15.9); WHITE BLOOD COUNT 10.9 K/mm3 (4.0-10.0)
--- NOTE | 2020-03-10 07:22 | PN ---
Progress Note, Physician History of Present Illness: pulmonary alert,dyspneic on 100%nrb,+cough. chest cta -pe,extensive bilater,alveolar interstitial infiltrates - Current Medication List Current Medications: Active Medications Acetaminophen (Tylenol -) 650 mg PO Q6H PRN PRN Reason: FEVER Albuterol Sulfate (Ventolin Hfa Inhaler -) 1 puff IH Q4H PRN PRN Reason: SHORT OF BREATH/WHEEZING Apixaban (Eliquis -) 5 mg PO BID [facility] Last Admin: 03/09/20 21:50 Dose: 5 mg Documented by: Ascorbic Acid (Vitamin C -) 500 mg PO BID [facility] Last Admin: 03/09/20 21:51 Dose: 500 mg Documented by: Aspirin (Asa -) 81 mg PO DAILY [facility] Last Admin: 03/09/20 11:56 Dose: 81 mg Documented by: Atorvastatin Calcium (Lipitor -) 40 mg PO HS [facility] Last Admin: 03/09/20 21:51 Dose: 40 mg Documented by: Benzocaine/Menthol (Cepacol Lozenge -) 1 each MM Q4H PRN PRN Reason: SORE THROAT Last Admin: 03/08/20 09:57 Dose: 1 each Documented by: Budesonide/Formoterol Fumarate (Symbicort 80/4.5mcg -) 2 puff IH BID [facility] Last Admin: 03/09/20 22:04 Dose: 2 puff Documented by: Cholecalciferol (Vitamin D3 -) 2,000 unit PO DAILY [facility] Last Admin: 03/09/20 11:55 Dose: 2,000 unit Documented by: Clotrimazole (Lotrimin 1% Cream -) 1 applic TP BID [facility] Last Admin: 03/09/20 21:53 Dose: 1 applic Documented by: Dexamethasone Sodium Phosphate (Decadron Injection -) 6 mg IVPUSH Q12H [facility] Last Admin: 03/10/20 00:22 Dose: 6 mg Documented by: Guaifenesin/Codeine Phosphate (Robitussin Ac -) 10 ml PO Q4H [facility] Last Admin: 03/10/20 04:22 Dose: 10 ml Documented by: Insulin Aspart (Novolog Vial Sliding Scale -) 1 vial SQ ACHS [facility]; Protocol Last Admin: 03/10/20 06:32 Dose: 3 units Documented by: Insulin Aspart (Novolog) 10 units SQ TIDAC [facility] Last Admin: 03/10/20 06:32 Dose: 10 units Documented by: Insulin Detemir (Levemir Vial) 30 units SQ ACBK [facility] Last Admin: 03/10/20 06:31 Dose: 30 units Documented by: Insulin Detemir (Levemir Vial) 25 units SQ HS [facility] Last Admin: 03/09/20 21:51 Dose: 25 units Documented by: Melatonin (Melatonin) 5 mg PO HS PRN PRN Reason: INSOMNIA Last Admin: 03/03/20 21:41 Dose: 5 mg Documented by: Pantoprazole Sodium (Protonix -) 40 mg PO DAILY [facility] Last Admin: 03/09/20 11:55 Dose: 40 mg Documented by: Zinc Sulfate (Orazinc -) 220 mg PO BID [facility] Last Admin: 03/09/20 21:53 Dose: 220 mg Documented by: - Objective Vital Signs: Vital Signs Temperature 98.5 F 03/10/20 06:00 Pulse Rate 67 03/10/20 06:00 Respiratory Rate 20 03/10/20 06:00 Blood Pressure 121/76 03/10/20 06:00 O2 Sat by Pulse Oximetry (%) 99 03/10/20 04:05 Constitutional: Yes: Mild Distress, Obese Eyes: Yes: WNL HENT: Yes: WNL Neck: Yes: WNL Cardiovascular: Yes: Regular Rate and Rhythm, S1, S2 Respiratory: Yes: Rales (few bibasilar crackles) Gastrointestinal: Yes: Normal Bowel Sounds, Soft Extremities: Yes: WNL Edema: No Labs: CBC, BMP 03/10/20 05:55 INR, PTT INR 1.00 (0.83-1.09) 01/25/20 16:29 Fibrinogen 468.0 mg/dL (238-498) 02/25/20 13:05 Problem List - Problems (1) Acute hypoxemic respiratory failure Code(s): J96.01 - ACUTE RESPIRATORY FAILURE WITH HYPOXIA (2) COVID-19 Code(s): U07.1 - COVID POSITIVE (3) HTN (hypertension) Code(s): I10 - ESSENTIAL (PRIMARY) HYPERTENSION (4) REYNALDO (obstructive sleep apnea) Code(s): G47.33 - OBSTRUCTIVE SLEEP APNEA (ADULT) (PEDIATRIC) (5) Obesity Code(s): E66.9 - OBESITY, UNSPECIFIED Assessment/Plan A/P Acute Hypoxic Respiratory Failure COVID Pneumonia Interstitial/alveolar infiltrates s/p Covid ARDS HTN DM Anemia - Decadron - s/p remdesivir course - s/p tocilizumab infusion - s/p convalescent plasma transfusion - cough suppressants - continue anticoagulation - completed empiric antibiotics - O2 to keep SpO2 >90% - NIPPV at night & PRN - Wt loss - pt may require evaluation for possible transplant if no clinical improvement. pt will require significant wt loss prior to any procedure patient will require home Oxygen therapy with portability upon discharge with Oximizer pendant. Due to Chronic Respiratory Failure and advancement of Obstructive and Restrictive lung Disease with lack of gas exchange the patient requires ventila tion via a non-invasive ventilator as BiPAP is no longer effective in treatment to effectively decrease work of breathing and to improve pulmonary status and prevent interruption or failure of respiratory support. DR MCKEON
[2020-03-10 07:31] LABS: POTASSIUM 4.4 mmol/L (3.5-5.1)
--- NOTE | 2020-03-10 07:46 | PN ---
Physical Exam: SUBJECTIVE: Patient seen and examined. No acute events noted. Pt on bipap/nrb satting 100%. Afebrile no cp, abd pain, bowel/bladder complaints noted. OBJECTIVE: Vital Signs Period Temp Pulse Resp BP Sys/Miner Pulse Ox Last 24 Hr 98.1 F-98.7 F 67-83 20-20 104-137/73-76 99-100 GENERAL: The patient is awake, alert, and fully oriented, in no acute distress. LUNGS: Breath sounds reduced b/l, decreased air entry. HEART: Regular rate and rhythm, S1, S2 without murmur, rub or gallop. ABDOMEN: Soft, nontender, nondistended. EXTREMITIES: 2+ pulses, warm, well-perfused, no edema. Laboratory Results - last 24 hr 03/09/20 03/09/20 03/09/20 11:51 16:04 21:57 WBC RBC Hgb Hct MCV MCH MCHC RDW Plt Count MPV Absolute Neuts (auto) Neutrophils % Lymphocytes % Monocytes % Eosinophils % Basophils % Nucleated RBC % Sodium Potassium Chloride POC Glucometer 221 196 367 03/10/20 03/10/20 03/10/20 05:55 05:55 06:29 WBC 10.9 H RBC 4.05 Hgb 9.8 L Hct 30.9 L MCV 76.5 L MCH 24.2 L MCHC 31.7 L RDW 17.1 H Plt Count 351 MPV 8.8 Absolute Neuts (auto) 8.1 H Neutrophils % 74.3 Lymphocytes % 18.2 D Monocytes % 6.0 D Eosinophils % 0.8 D Basophils % 0.7 Nucleated RBC % 0 Sodium 139 Potassium 4.4 Chloride 100 POC Glucometer 197 Active Medications Generic Name Dose Route Start Last Admin Trade Name Freq PRN Reason Stop Dose Admin Acetaminophen 650 mg 03/01/20 15:34 Tylenol - PO Q6H PRN FEVER Albuterol Sulfate 1 puff 03/01/20 15:34 Ventolin Hfa Inhaler - IH Q4H PRN SHORT OF BREATH/WHEEZING Apixaban 5 mg 03/01/20 22:00 03/09/20 21:50 Eliquis - PO 5 mg BID SARAH Administration Ascorbic Acid 500 mg 03/01/20 22:00 03/09/20 21:51 Vitamin C - PO 500 mg BID SARAH Administration Aspirin 81 mg 03/02/20 10:00 03/09/20 11:56 Asa - PO 81 mg DAILY SARAH Administration Atorvastatin Calcium 40 mg 03/01/20 22:00 03/09/20 21:51 Lipitor - PO 40 mg HS SARAH Administration Benzocaine/Menthol 1 each 03/01/20 10:20 03/08/20 09:57 Cepacol Lozenge - MM 1 each Q4H PRN Administration SORE THROAT Budesonide/Formoterol Fumarate 2 puff 03/01/20 22:00 03/09/20 22:04 Symbicort 80/4.5mcg - IH 2 puff BID SARAH Administration Cholecalciferol 2,000 unit 03/02/20 10:00 03/09/20 11:55 Vitamin D3 - PO 2,000 unit DAILY [facility]AH Administration Clotrimazole 1 applic 03/01/20 22:00 03/09/20 21:53 Lotrimin 1% Cream - TP 1 applic BID SARAH Administration Dexamethasone Sodium Phosphate 6 mg 03/09/20 12:15 03/10/20 00:22 Decadron Injection - IVPUSH 6 mg Q12H SARAH Administration Guaifenesin/Codeine Phosphate 10 ml 03/02/20 12:15 03/10/20 04:22 Robitussin Ac - PO 10 ml Q4H SARAH Administration Insulin Aspart 1 vial 03/08/20 16:23 03/10/20 06:32 Novolog Vial Sliding Scale - SQ 3 units ACHS SARAH Administration Protocol Insulin Aspart 10 units 03/09/20 09:12 03/10/20 06:32 Novolog SQ 10 units TIDAC SARAH Administration Insulin Detemir 30 units 03/09/20 07:00 03/10/20 06:31 Levemir Vial SQ 30 units ACBK SARAH Administration Insulin Detemir 25 units 03/08/20 22:00 03/09/20 21:51 Levemir Vial SQ 25 units HS SARAH Administration Melatonin 5 mg 03/01/20 22:00 03/03/20 21:41 Melatonin PO 5 mg HS PRN Administration INSOMNIA Pantoprazole Sodium 40 mg 03/04/20 10:00 03/09/20 11:55 Protonix - PO 40 mg DAILY [facility]AH Administration Zinc Sulfate 220 mg 03/01/20 22:00 03/09/20 21:53 Orazinc - PO 220 mg BID SARAH Administration ASSESSMENT/PLAN: 34M with HTN (no home meds) and newly diagnosed DM on this admission. He was admitted 01/24 after he presented with 3-4 days of increasing dyspnea and diarrhea after testing positive for COVID. #COVID 19 Pneumonia - Completed abx, remdesivir course, tocilizumab infusion, convalescent plasma transfusion - SpO2 in 98-100% on NRB, still on bipap at night though - CXR (03/07): No significant interval change, diffuse BL interstitial and airspace opacities/inf - CTA pending pt's ability to lie flat - Decadron 6 mg BID will re-eval the blood glucose daily as we decrease steroids further. - Eliquis 5mg BID - Vitamin C, Vitamin D, Zinc - COVID (02/27) NEG - CTA ordered to assess for PE vs intrapulmonary architecture for fibrosis/capillary leak. It likely will not affect mgmt unless he has a PE that IR can suction out but it will provide a definitive diagnosis of fibrosis vs capillary leak which ideally if he loses weight it can reduce the inflammation and decrease the capillary leak theoretically but the fibrosis would be irrevirsable and thus would benefit from lung transplant. However due to his obesity, [place], [place] issues it would be very difficult for this to happen. - Pt should accept LTAC placement and go home with NIPPV and monitor his resp status there and hopefully with some wt loss he will improve. # Atypical Chest Pain - Resolved, likely 2/2 excessive coughing, Robitussin Q4H - ACS ruled out: TNI neg x2; EKG showed NSR, no acute ischemic changes - Echo when stable/able to lie flat as per cardio - Plan for ECHO and MIBI when feasible with outpatient Cardio F/U with Dr. Rossi #Newly diagnosed DM - HbA1c 10.5, POC glucose in late 200s-300s - Levemir increased 25->30 + 20->25 with Novolog 6TIDAC -> 8->10 TIDAC and ISS because of recent hyperglycemia while on decadron. - MAKE SURE TO COME BACK DOWN TO PREVIOUS DOSE WHEN DECADRON IS STOPPED # Headache - Fioricet Q6H #Hx of HTN - Started on Losartan here, holding for now due to low BP #Newly diagnosed HLD - Chol 204, LDL 122, HDL 62 - Lipitor 40 HS started #FEN - DM diet #Prophylaxis - On Eliquis 5 mg BID - Started Protonix 40mg #Dispo - Will monitor on M/S and attempt to wean off NRB Visit type - Emergency Visit Emergency Visit: Yes ED Registration Date: 01/25/20 Care time: The patient presented to the Emergency Department on the above date and was hospitalized for further evaluation of their emergent condition. - New Patient This patient is new to me today: No - Critical Care Critical Care patient: No - Discharge Referral Referred to [facility] Med P.C.: No ATTENDING PHYSICIAN STATEMENT I saw and evaluated the patient. I reviewed the resident's note and discussed the case with the resident. I agree with the resident's findings and plan as documented. SUBJECTIVE: OBJECTIVE: ASSESSMENT AND PLAN:
[2020-03-10 08:27] LABS: ALBUMIN 2.8 g/dl (3.4-5.0); BILIRUBIN,TOTAL 0.4 mg/dL (0.2-1); BLOOD UREA NITROGEN 18.8 mg/dL (7-18); CREATININE 0.8 mg/dL (0.55-1.3); TOT PROT 6.2 g/dl (6.4-8.2)
[2020-03-10] MEDS: CHOLECALCIFEROL (VIT D3) 1,000 UNIT (25 MCG) TABLET PO SCH (09:43)
[2020-03-10] MEDS: ASPIRIN 81 MG CHEWABLE TABLETS PO SCH (09:43)
[2020-03-10] MEDS: APIXABAN 5 MG TABLET PO SCH ×2 (09:43→21:05)
[2020-03-10] MEDS: ZINC SULFATE 220 MG CAPSULE (FP) PO SCH ×2 (09:43→21:06)
[2020-03-10] MEDS: PANTOPRAZOLE 40 MG TABLET PO SCH (09:43)
[2020-03-10] MEDS: ASCORBIC ACID 500 MG TABLET (FP) PO SCH ×2 (09:43→21:05)
[2020-03-10 09:51] LABS: ANISOCYTOSIS 1+; MACROCYTOSIS 0; PLATELET ESTIMATE NORMAL
[2020-03-10] MEDS: BUDESONIDE/FORMETEROL FUMARATE 80/4.5 mcg INHALER IH SCH ×2 (10:04→21:10)
[2020-03-10] MEDS: CLOTRIMAZOLE 1% CREAM 15 GM TUBE TP SCH ×2 (10:04→21:15)
--- NOTE | 2020-03-10 11:44 | PN ---
Teaching Attending Note Name of Resident: Mynor Curry ATTENDING PHYSICIAN STATEMENT I saw and evaluated the patient. I reviewed the resident's note and discussed the case with the resident. I agree with the resident's findings and plan as documented. SUBJECTIVE: Seen and examined at bedside. Voice is improved on steroids. Still requiring NRB. Will get CTA chest for further evaluation of condition OBJECTIVE: Last Vital Signs Temp Pulse Resp BP Pulse Ox 98.1 F 79 20 137/75 100 03/09/20 08:37 03/09/20 08:37 03/09/20 09:00 03/09/20 08:37 03/09/20 11:50 PE: Per resdient note Labs/Imaging: reviewed ASSESSMENT/PLAN: 34M with HTN (no home meds) and newly diagnosed DM on this admission. He was admitted 01/24 after he presented with 3-4 days of increasing dyspnea and diarrhea after testing positive for COVID. Has had extended stay and remains dependent on nonrebreather to maintain oxygenation #COVID 19 Pneumonia Has had extended stay and remains dependent on nonrebreather to maintain oxygenation - started on decadron due to cough, laryngitis - Completed abx, remdesivir course, tocilizumab infusion, convalescent plasma transfusion - dDimer downtrending, on Eliquis 5mg BID - Vitamin C, Vitamin D, Zinc - COVID (02/27) NEG -f/u pulm recs #Iron deficiency anemia 2/2 repeated blood draws over prolonged stay -IV iron 100mg x3 days #atypical CP Cards on board: appreciate recs -s/p Echo: poor quality, LV function normal -Stress MIBI when stable #DM With hyperglycemia 2/2 steroids - HbA1c 10.5, POC glucose in late 200s-300s - Levemir 30 + 25 with Novolog 10TIDAC and ISS -when steroids are stopped pt should be reverted to levemir 25-20, 6U TIDAC # Headache - Fioricet Q6H PRN # HLD - Lipitor 40 #Prophylaxis - On Eliquis 5 mg BID - Cont Protonix 40mg #Dispo - Continue to attempt to wean off oxygen as tolerated
[2020-03-10] MEDS: ATORVASTATIN CA 40 MG TABLET (FP) PO SCH (21:05)
[2020-03-11] MEDS: guaiFENesin/CODEINE 10 ML UNIT-DOSE CUPS PO SCH ×6 (00:02→20:14)
[2020-03-11] MEDS: DEXAMETHASONE SOD PHOSPHATE 4 MG/1 ML VIAL IVPUSH SCH ×2 (00:02→12:27)
[2020-03-11] MEDS: INSULIN SLIDING SCALE (NOVOLOG) 1 VIAL SQ SCH ×4 (06:10→21:17)
[2020-03-11] MEDS: Insulin (LOG) Aspart 100 UNITS/ML VIAL SQ SCH ×3 (06:10→17:30)
[2020-03-11] MEDS: INSULIN (LEVEMIR) 100 UNITS/ML UNITS SQ SCH ×2 (06:10→21:13)
--- NOTE | 2020-03-11 07:03 | PN ---
Progress Note, Physician History of Present Illness: PULMONARY ALERT,STILL DYSPNEIC ON 100% NRB,+ INCREASING COUGH - Current Medication List Current Medications: Active Medications Acetaminophen (Tylenol -) 650 mg PO Q6H PRN PRN Reason: FEVER Albuterol Sulfate (Ventolin Hfa Inhaler -) 1 puff IH Q4H PRN PRN Reason: SHORT OF BREATH/WHEEZING Apixaban (Eliquis -) 5 mg PO BID [facility] Last Admin: 03/10/20 21:05 Dose: 5 mg Documented by: Ascorbic Acid (Vitamin C -) 500 mg PO BID [facility] Last Admin: 03/10/20 21:05 Dose: 500 mg Documented by: Atorvastatin Calcium (Lipitor -) 40 mg PO HS [facility] Last Admin: 03/10/20 21:05 Dose: 40 mg Documented by: Benzocaine/Menthol (Cepacol Lozenge -) 1 each MM Q4H PRN PRN Reason: SORE THROAT Last Admin: 03/08/20 09:57 Dose: 1 each Documented by: Budesonide/Formoterol Fumarate (Symbicort 80/4.5mcg -) 2 puff IH BID [facility] Last Admin: 03/10/20 21:10 Dose: Not Given Documented by: Cholecalciferol (Vitamin D3 -) 2,000 unit PO DAILY [facility] Last Admin: 03/10/20 09:43 Dose: 2,000 unit Documented by: Clotrimazole (Lotrimin 1% Cream -) 1 applic TP BID [facility] Last Admin: 03/10/20 21:15 Dose: Not Given Documented by: Dexamethasone Sodium Phosphate (Decadron Injection -) 6 mg IVPUSH Q12H [facility] Last Admin: 03/11/20 00:02 Dose: 6 mg Documented by: Guaifenesin/Codeine Phosphate (Robitussin Ac -) 10 ml PO Q4H [facility] Last Admin: 03/11/20 04:07 Dose: Not Given Documented by: Insulin Aspart (Novolog Vial Sliding Scale -) 1 vial SQ ACHS [facility]; Protocol Last Admin: 03/11/20 06:10 Dose: 9 units Documented by: Insulin Aspart (Novolog) 10 units SQ TIDAC [facility] Last Admin: 03/11/20 06:10 Dose: 10 units Documented by: Insulin Detemir (Levemir Vial) 30 units SQ ACBK [facility] Last Admin: 03/11/20 06:10 Dose: 30 units Documented by: Insulin Detemir (Levemir Vial) 25 units SQ HS [facility] Last Admin: 03/10/20 21:11 Dose: 25 units Documented by: Melatonin (Melatonin) 5 mg PO HS PRN PRN Reason: INSOMNIA Last Admin: 03/03/20 21:41 Dose: 5 mg Documented by: Pantoprazole Sodium (Protonix -) 40 mg PO DAILY [facility] Last Admin: 03/10/20 09:43 Dose: 40 mg Documented by: Zinc Sulfate (Orazinc -) 220 mg PO BID [facility] Last Admin: 03/10/20 21:06 Dose: 220 mg Documented by: - Objective Vital Signs: Vital Signs Temperature 98.0 F 03/10/20 23:45 Pulse Rate 85 03/10/20 23:45 Respiratory Rate 20 03/10/20 23:45 Blood Pressure 128/77 03/10/20 23:45 O2 Sat by Pulse Oximetry (%) 100 03/11/20 05:00 Constitutional: Yes: Well Nourished, Calm, Mild Distress Eyes: Yes: WNL HENT: Yes: WNL Neck: Yes: WNL Cardiovascular: Yes: Regular Rate and Rhythm, S1, S2 Respiratory: Yes: Rales (BIBASAILAR CRACKLES) Gastrointestinal: Yes: Normal Bowel Sounds, Soft, Abdomen, Obese Extremities: Yes: WNL Edema: No Labs: CBC, BMP Problem List - Problems (1) Acute hypoxemic respiratory failure Code(s): J96.01 - ACUTE RESPIRATORY FAILURE WITH HYPOXIA (2) COVID-19 Code(s): U07.1 - COVID POSITIVE (3) HTN (hypertension) Code(s): I10 - ESSENTIAL (PRIMARY) HYPERTENSION (4) REYNALDO (obstructive sleep apnea) Code(s): G47.33 - OBSTRUCTIVE SLEEP APNEA (ADULT) (PEDIATRIC) (5) Obesity Code(s): E66.9 - OBESITY, UNSPECIFIED Assessment/Plan A/P Acute Hypoxic Respiratory Failure COVID Pneumonia Interstitial/alveolar infiltrates s/p Covid ARDS HTN DM Anemia - continue Decadron - s/p remdesivir course - s/p tocilizumab infusion - s/p convalescent plasma transfusion - cough suppressants - continue anticoagulation - completed empiric antibiotics - O2 to keep SpO2 >90% - NIPPV at night & PRN - Wt loss - pt may require evaluation for possible transplant if no clinical improvement. pt will require significant wt loss prior to any procedure patient will require home Oxygen therapy with portability upon discharge with Oximizer pendant. Due to Chronic Respiratory Failure and advancement of Obstructive and Restrictive lung Disease with lack of gas exchange the patient requires ventilation via a non-invasive ventilator as BiPAP is no longer effective in treatment to effectively decrease work of breathing and to improve pulmonary status and prevent interruption or failure of respiratory support. DR MCKEON
[2020-03-11 07:32] LABS: BASO % 0.5 % (0-2.0); EOS % 0.1 % (0-4.5); HEMATOCRIT 32.8 % (35.4-49); HEMOGLOBIN 10.5 GM/dL (11.7-16.9); LYMPH % 20.4 % (8-40); MCH 24.5 pg (25.7-33.7); MCHC 31.9 g/dl (32.0-35.9); MEAN CELL VOLUME 76.9 fl (80-96); MEAN PLT VOLUME 9.1 fl (7.5-11.1); MONO % 7.7 % (3.8-10.2); NEUT % 71.3 % (42.8-82.8); PLATELET COUNT 403 K/MM3 (134-434); RBC 4.26 M/mm3 (4.00-5.60); RDW 17.2 % (11.9-15.9); WHITE BLOOD COUNT 12.5 K/mm3 (4.0-10.0)
[2020-03-11 07:55] LABS: ALBUMIN 3.1 g/dl (3.4-5.0); BILIRUBIN,TOTAL 0.5 mg/dL (0.2-1); BLOOD UREA NITROGEN 28.1 mg/dL (7-18); CALCIUM 9.3 mg/dL (8.5-10.1); CREATININE 1.2 mg/dL (0.55-1.3); POTASSIUM 4.5 mmol/L (3.5-5.1); TOT PROT 6.5 g/dl (6.4-8.2)
[2020-03-11] MEDS: CLOTRIMAZOLE 1% CREAM 15 GM TUBE TP SCH ×2 (09:29→21:20)
[2020-03-11] MEDS: BUDESONIDE/FORMETEROL FUMARATE 80/4.5 mcg INHALER IH SCH ×2 (09:29→21:19)
[2020-03-11] MEDS: ASCORBIC ACID 500 MG TABLET (FP) PO SCH ×2 (09:29→21:12)
[2020-03-11] MEDS: CHOLECALCIFEROL (VIT D3) 1,000 UNIT (25 MCG) TABLET PO SCH (09:29)
[2020-03-11] MEDS: PANTOPRAZOLE 40 MG TABLET PO SCH (09:29)
[2020-03-11] MEDS: APIXABAN 5 MG TABLET PO SCH ×2 (09:29→21:12)
[2020-03-11] MEDS: ZINC SULFATE 220 MG CAPSULE (FP) PO SCH ×2 (09:29→21:19)
[2020-03-11 10:11] LABS: ANISOCYTOSIS 1+; MACROCYTOSIS 0; OVALOCYTE 1+; PLATELET ESTIMATE NORMAL
--- NOTE | 2020-03-11 11:47 | PN ---
Physical Exam: SUBJECTIVE: Patient seen and examined at the bedside, seated, reports improvement in upper airway symptoms OBJECTIVE: Vital Signs Period Temp Pulse Resp BP Sys/Miner Pulse Ox Last 24 Hr 97.8 F-98.1 F 63-106 16-22 115-153/67-84 93-100 GENERAL: AOx3 HEAD: Normal with no signs of trauma. EYES: PERRL, extraocular movements intact, sclera anicteric, conjunctiva clear. No ptosis. NECK: Trachea midline, full range of motion, supple. LUNGS: On NRB. Decreased air entry throughout HEART: RRR. Normal S1, S2. No murmurs noted. ABDOMEN: Obese. Soft, nontender, obese, no guarding, no rebound, no hepatosplenomegaly, no masses. EXTREMITIES: 2+ pulses, warm, well-perfused, no edema. NEUROLOGICAL: Cranial nerves II through XII grossly intact. Normal speech, gait not observed. Laboratory Results - last 24 hr 03/10/20 03/10/20 03/10/20 11:51 16:26 21:08 WBC RBC Hgb Hct MCV MCH MCHC RDW Plt Count MPV Absolute Neuts (auto) Neutrophils % Neutrophils % (Manual) Band Neutrophils % Lymphocytes % Lymphocytes % (Manual) Monocytes % Monocytes % (Manual) Eosinophils % Eosinophils % (Manual) Basophils % Basophils % (Manual) Myelocytes % (Man) Promyelocytes % (Man) Blast Cells % (Manual) Nucleated RBC % Metamyelocytes Hypochromia Platelet Estimate Platelet Comment Polychromasia Poikilocytosis Basophilic Stippling Anisocytosis Microcytosis Macrocytosis Spherocytes Ovalocytes Sodium Potassium Chloride Carbon Dioxide Anion Gap BUN Creatinine Est GFR (CKD-EPI)AfAm Est GFR (CKD-EPI)NonAf POC Glucometer 296 281 265 Random Glucose Calcium Total Bilirubin AST ALT Alkaline Phosphatase Total Protein Albumin 03/11/20 03/11/20 03/11/20 06:09 06:20 06:20 WBC 12.5 H RBC 4.26 Hgb 10.5 L Hct 32.8 L MCV 76.9 L MCH 24.5 L MCHC 31.9 L RDW 17.2 H Plt Count 403 MPV 9.1 Absolute Neuts (auto) 8.9 H Neutrophils % 71.3 Neutrophils % (Manual) 71.1 Band Neutrophils % 3.1 Lymphocytes % 20.4 Lymphocytes % (Manual) 16.5 Monocytes % 7.7 Monocytes % (Manual) 4 Eosinophils % 0.1 D Eosinophils % (Manual) 0.0 D Basophils % 0.5 Basophils % (Manual) 1.0 D Myelocytes % (Man) 2 D Promyelocytes % (Man) 0 Blast Cells % (Manual) 0 Nucleated RBC % 0 Metamyelocytes 0 Hypochromia 0 Platelet Estimate Normal Platelet Comment Present Polychromasia 1+ Poikilocytosis 1+ Basophilic Stippling 1+ Anisocytosis 1+ Microcytosis 1+ Macrocytosis 0 Spherocytes 1+ Ovalocytes 1+ Sodium 136 Potassium 4.5 Chloride 98 Carbon Dioxide 30 Anion Gap 8 BUN 28.1 H Creatinine 1.2 Est GFR (CKD-EPI)AfAm 90.26 Est GFR (CKD-EPI)NonAf 77.87 POC Glucometer 287 Random Glucose 319 H Calcium 9.3 Total Bilirubin 0.5 AST 12 L ALT 34 Alkaline Phosphatase 116 Total Protein 6.5 Albumin 3.1 L 03/11/20 11:09 WBC RBC Hgb Hct MCV MCH MCHC RDW Plt Count MPV Absolute Neuts (auto) Neutrophils % Neutrophils % (Manual) Band Neutrophils % Lymphocytes % Lymphocytes % (Manual) Monocytes % Monocytes % (Manual) Eosinophils % Eosinophils % (Manual) Basophils % Basophils % (Manual) Myelocytes % (Man) Promyelocytes % (Man) Blast Cells % (Manual) Nucleated RBC % Metamyelocytes Hypochromia Platelet Estimate Platelet Comment Polychromasia Poikilocytosis Basophilic Stippling Anisocytosis Microcytosis Macrocytosis Spherocytes Ovalocytes Sodium Potassium Chloride Carbon Dioxide Anion Gap BUN Creatinine Est GFR (CKD-EPI)AfAm Est GFR (CKD-EPI)NonAf POC Glucometer 254 Random Glucose Calcium Total Bilirubin AST ALT Alkaline Phosphatase Total Protein Albumin Active Medications Generic Name Dose Route Start Last Admin Trade Name Freq PRN Reason Stop Dose Admin Acetaminophen 650 mg 03/01/20 15:34 Tylenol - PO Q6H PRN FEVER Albuterol Sulfate 1 puff 03/01/20 15:34 Ventolin Hfa Inhaler - IH Q4H PRN SHORT OF BREATH/WHEEZING Apixaban 5 mg 03/01/20 22:00 03/11/20 09:29 Eliquis - PO 5 mg BID SARAH Administration Ascorbic Acid 500 mg 03/01/20 22:00 03/11/20 09:29 Vitamin C - PO 500 mg BID SARAH Administration Atorvastatin Calcium 40 mg 03/01/20 22:00 03/10/20 21:05 Lipitor - PO 40 mg HS SARAH Administration Benzocaine/Menthol 1 each 03/01/20 10:20 03/08/20 09:57 Cepacol Lozenge - MM 1 each Q4H PRN Administration SORE THROAT Budesonide/Formoterol Fumarate 2 puff 03/01/20 22:00 03/11/20 09:29 Symbicort 80/4.5mcg - IH 2 puff BID SARAH Administration Cholecalciferol 2,000 unit 03/02/20 10:00 03/11/20 09:29 Vitamin D3 - PO 2,000 unit DAILY SARAH Administration Clotrimazole 1 applic 03/01/20 22:00 03/11/20 09:29 Lotrimin 1% Cream - TP 1 applic BID SARAH Administration Dexamethasone Sodium Phosphate 6 mg 03/09/20 12:15 03/11/20 00:02 Decadron Injection - IVPUSH 6 mg Q12H SARAH Administration Guaifenesin/Codeine Phosphate 10 ml 03/02/20 12:15 03/11/20 09:29 Robitussin Ac - PO 10 ml Q4H SARAH Administration Insulin Aspart 1 vial 03/08/20 16:23 03/11/20 06:10 Novolog Vial Sliding Scale - SQ 9 units ACHS SARAH Administration Protocol Insulin Aspart 10 units 03/09/20 09:12 03/11/20 06:10 Novolog SQ 10 units TIDAC SARAH Administration Insulin Detemir 30 units 03/09/20 07:00 03/11/20 06:10 Levemir Vial SQ 30 units ACBK SARAH Administration Insulin Detemir 25 units 03/08/20 22:00 03/10/20 21:11 Levemir Vial SQ 25 units HS SARAH Administration Melatonin 5 mg 03/01/20 22:00 03/03/20 21:41 Melatonin PO 5 mg HS PRN Administration INSOMNIA Pantoprazole Sodium 40 mg 03/04/20 10:00 03/11/20 09:29 Protonix - PO 40 mg DAILY SARAH Administration Zinc Sulfate 220 mg 03/01/20 22:00 03/11/20 09:29 Orazinc - PO 220 mg BID SARAH Administration ASSESSMENT/PLAN: 34M with HTN (no home meds) and newly diagnosed DM on this admission. He was admitted 01/24 after he presented with 3-4 days of increasing dyspnea and diarrhea after testing positive for COVID. #COVID 19 Pneumonia - Completed abx, remdesivir course, tocilizumab infusion, convalescent plasma transfusion - SpO2 in 92% resting and 87% after coughing on NRB, still on bipap at night - CXR (03/10): No interval change, bi-basilar opacities - CTA (03/10): No PE, inc Rt Pulm artery pressyre, enlarged mediastinal lymph node - Decadron 6 mg BID, improvement in symptoms - Eliquis 5mg BID - Vitamin C, Vitamin D, Zinc - COVID (02/27) NEG # Atypical Chest Pain - Resolved, likely 2/2 excessive coughing, Robitussin Q4H - ACS ruled out: TNI neg x2; EKG showed NSR, no acute ischemic changes - Echo when stable/able to lie flat as per cardio - Plan for ECHO and MIBI when feasible with outpatient Cardio F/U with Dr. Rossi #Newly diagnosed DM - HbA1c 10.5, POC glucose in late 200s-300s - Levemir 30+25, Novolog 10TIDAC, Nov ISS - WILL REDUCE INSULIN WHEN DECADRON IS STOPPED # Headache - Fioricet Q6H #Hx of HTN - Started on Losartan here, holding for now due to low BP #Newly diagnosed HLD - Chol 204, LDL 122, HDL 62 - Lipitor 40 HS started #FEN - DM diet #Prophylaxis - On Eliquis 5 mg BID - Started Protonix 40mg #Dispo - Will monitor on M/S and attempt to wean off NRB Visit type - Emergency Visit Emergency Visit: Yes ED Registration Date: 01/25/20 Care time: The patient presented to the Emergency Department on the above date and was hospitalized for further evaluation of their emergent condition. - New Patient This patient is new to me today: No - Critical Care Critical Care patient: No ATTENDING PHYSICIAN STATEMENT I saw and evaluated the patient. I reviewed the resident's note and discussed the case with the resident. I agree with the resident's findings and plan as documented. SUBJECTIVE: OBJECTIVE: ASSESSMENT AND PLAN:
--- NOTE | 2020-03-11 12:35 | PN ---
Teaching Attending Note Name of Resident: Vince Gardner ATTENDING PHYSICIAN STATEMENT I saw and evaluated the patient. I reviewed the resident's note and discussed the case with the resident. I agree with the resident's findings and plan as documented. SUBJECTIVE: Seen and examined at bedside. Discussed case with pulmonary. Will place consul t to lung transplant team at [facility] who apparently specialize in obese patients OBJECTIVE: Last Vital Signs Temp Pulse Resp BP Pulse Ox 98.1 F 98 H 22 H 115/67 93 L 03/11/20 10:03/11/20 10:03/11/20 10:03/11/20 10:03/11/20 12:22 PE: Per resdient note Labs/Imaging: reviewed ASSESSMENT/PLAN: 34M with HTN (no home meds) and newly diagnosed DM on this admission. He was admitted 01/24 after he presented with 3-4 days of increasing dyspnea and diarrhea after testing positive for COVID. Has had extended stay and remains dependent on nonrebreather to maintain oxygenation #COVID 19 Pneumonia Has had extended stay and remains dependent on nonrebreather to maintain oxygenation. CT scan concerning for developing fibrosis. Discussed case with pulmonary. Will place consult to lung transplant team at [facility] who apparently specialize in obese patients - started on decadron due to cough, laryngitis - Completed abx, remdesivir course, tocilizumab infusion, convalescent plasma transfusion - dDimer downtrending, on Eliquis 5mg BID - Vitamin C, Vitamin D, Zinc - COVID (02/27) NEG -f/u pulm recs #Iron deficiency anemia 2/2 repeated blood draws over prolonged stay -completed IV iron 100mg x3 days #atypical CP Cards on board: appreciate recs -s/p Echo: poor quality, LV function normal -Stress MIBI when stable #DM With hyperglycemia 2/2 steroids - HbA1c 10.5, POC glucose in late 200s-300s - Levemir 30 + 25 with Novolog 10TIDAC and ISS -when steroids are stopped pt should be reverted to levemir 25-20, 6U TIDAC # Headache - Fioricet Q6H PRN # HLD - Lipitor 40 #Prophylaxis - On Eliquis 5 mg BID - Cont Protonix 40mg #Dispo - Continue to attempt to wean off oxygen as tolerated
[2020-03-11] MEDS ORDERED: INSULIN (NOVOLOG) ASPART 100 UNITS/ML 10ML VIAL ONE (20:48)
[2020-03-11] MEDS: ATORVASTATIN CA 40 MG TABLET (FP) PO SCH (21:12)
[2020-03-12] MEDS: DEXAMETHASONE SOD PHOSPHATE 4 MG/1 ML VIAL IVPUSH SCH ×2 (00:07→12:21)
[2020-03-12] MEDS: guaiFENesin/CODEINE 10 ML UNIT-DOSE CUPS PO SCH ×6 (00:07→22:21)
[2020-03-12] MEDS: INSULIN SLIDING SCALE (NOVOLOG) 1 VIAL SQ SCH ×4 (06:01→22:25)
[2020-03-12] MEDS: Insulin (LOG) Aspart 100 UNITS/ML VIAL SQ SCH ×3 (06:01→17:08)
[2020-03-12] MEDS: INSULIN (LEVEMIR) 100 UNITS/ML UNITS SQ SCH ×2 (06:02→22:22)
[2020-03-12 06:45] LABS: BASO % 0.5 % (0-2.0); EOS % 0.2 % (0-4.5); HEMATOCRIT 30.7 % (35.4-49); HEMOGLOBIN 9.7 GM/dL (11.7-16.9); LYMPH % 20.9 % (8-40); MCH 24.4 pg (25.7-33.7); MCHC 31.8 g/dl (32.0-35.9); MEAN CELL VOLUME 76.9 fl (80-96); MEAN PLT VOLUME 8.6 fl (7.5-11.1); MONO % 7.1 % (3.8-10.2); NEUT % 71.3 % (42.8-82.8); PLATELET COUNT 334 K/MM3 (134-434); RBC 3.99 M/mm3 (4.00-5.60); RDW 17.4 % (11.9-15.9); WHITE BLOOD COUNT 11.7 K/mm3 (4.0-10.0)
[2020-03-12 07:14] LABS: ALBUMIN 2.8 g/dl (3.4-5.0); BILIRUBIN,TOTAL 0.4 mg/dL (0.2-1); BLOOD UREA NITROGEN 24.3 mg/dL (7-18); CALCIUM 8.6 mg/dL (8.5-10.1); CREATININE 1.1 mg/dL (0.55-1.3); MAGNESIUM 2.1 mg/dL (1.8-2.4); PHOSPHOROUS 3.9 mg/dL (2.5-4.9); POTASSIUM 4.6 mmol/L (3.5-5.1); TOT PROT 5.9 g/dl (6.4-8.2)
[2020-03-12] MEDS ORDERED: PT OWN MED DRAWER 7, Y5N ONE (10:13)
[2020-03-12] MEDS: APIXABAN 5 MG TABLET PO SCH ×2 (10:15→22:21)
[2020-03-12] MEDS: ZINC SULFATE 220 MG CAPSULE (FP) PO SCH ×2 (10:16→22:22)
[2020-03-12] MEDS: CHOLECALCIFEROL (VIT D3) 1,000 UNIT (25 MCG) TABLET PO SCH (10:16)
[2020-03-12] MEDS: PANTOPRAZOLE 40 MG TABLET PO SCH (10:16)
[2020-03-12] MEDS: BUDESONIDE/FORMETEROL FUMARATE 80/4.5 mcg INHALER IH SCH ×2 (10:16→22:25)
[2020-03-12] MEDS: ASCORBIC ACID 500 MG TABLET (FP) PO SCH ×2 (10:16→22:22)
[2020-03-12] MEDS: CLOTRIMAZOLE 1% CREAM 15 GM TUBE TP SCH ×2 (10:17→22:26)
[2020-03-12] MEDS ORDERED: INSULIN (NOVOLOG) ASPART 100 UNITS/ML 10ML VIAL ONE (11:16)
--- NOTE | 2020-03-12 12:03 | PN ---
Physical Exam: SUBJECTIVE: Patient seen and examined at the bedside, standing, voice is stronger than previously OBJECTIVE: noted Vital Signs Period Temp Pulse Resp BP Sys/Miner Pulse Ox Last 24 Hr 97.6 F-98.0 F 69-100 20-20 96-132/38-68 91-98 GENERAL: AOx3 HEAD: Normal with no signs of trauma. EYES: PERRL, extraocular movements intact, sclera anicteric, conjunctiva clear. No ptosis. NECK: Trachea midline, full range of motion, supple. LUNGS: On NRB. Decreased air entry throughout, no wheezing HEART: RRR. Normal S1, S2. No murmurs noted. ABDOMEN: Obese. Soft, nontender, obese, no guarding, no rebound, no hepatosplenomegaly, no masses. EXTREMITIES: 2+ pulses, warm, well-perfused, no edema. NEUROLOGICAL: Cranial nerves II through XII grossly intact. Normal speech, gait not observed. Laboratory Results - last 24 hr 03/11/20 03/11/20 03/12/20 16:43 21:16 05:59 WBC RBC Hgb Hct MCV MCH MCHC RDW Plt Count MPV Absolute Neuts (auto) Neutrophils % Lymphocytes % Monocytes % Eosinophils % Basophils % Nucleated RBC % D-Dimer Sodium Potassium Chloride Carbon Dioxide Anion Gap BUN Creatinine Est GFR (CKD-EPI)AfAm Est GFR (CKD-EPI)NonAf POC Glucometer 263 397 301 Random Glucose Calcium Phosphorus Magnesium Ferritin Total Bilirubin AST ALT Alkaline Phosphatase LD Total C-Reactive Protein Total Protein Albumin 03/12/20 03/12/20 03/12/20 06:10 06:10 06:10 WBC 11.7 H RBC 3.99 L Hgb 9.7 L Hct 30.7 L MCV 76.9 L MCH 24.4 L MCHC 31.8 L RDW 17.4 H Plt Count 334 MPV 8.6 Absolute Neuts (auto) 8.4 H Neutrophils % 71.3 Lymphocytes % 20.9 Monocytes % 7.1 Eosinophils % 0.2 D Basophils % 0.5 Nucleated RBC % 0 D-Dimer 493 Sodium 137 Potassium 4.6 Chloride 98 Carbon Dioxide 35 H Anion Gap 4 L BUN 24.3 H Creatinine 1.1 Est GFR (CKD-EPI)AfAm 100.27 Est GFR (CKD-EPI)NonAf 86.51 POC Glucometer Random Glucose 310 H Calcium 8.6 Phosphorus 3.9 Magnesium 2.1 Ferritin 635.7 H Total Bilirubin 0.4 AST 8 L ALT 28 Alkaline Phosphatase 113 LD Total 463 H C-Reactive Protein 0.4 H Total Protein 5.9 L Albumin 2.8 L 03/12/20 11:21 WBC RBC Hgb Hct MCV MCH MCHC RDW Plt Count MPV Absolute Neuts (auto) Neutrophils % Lymphocytes % Monocytes % Eosinophils % Basophils % Nucleated RBC % D-Dimer Sodium Potassium Chloride Carbon Dioxide Anion Gap BUN Creatinine Est GFR (CKD-EPI)AfAm Est GFR (CKD-EPI)NonAf POC Glucometer 229 Random Glucose Calcium Phosphorus Magnesium Ferritin Total Bilirubin AST ALT Alkaline Phosphatase LD Total C-Reactive Protein Total Protein Albumin Active Medications Generic Name Dose Route Start Last Admin Trade Name Freq PRN Reason Stop Dose Admin Acetaminophen 650 mg 03/01/20 15:34 Tylenol - PO Q6H PRN FEVER Albuterol Sulfate 1 puff 03/01/20 15:34 Ventolin Hfa Inhaler - IH Q4H PRN SHORT OF BREATH/WHEEZING Apixaban 5 mg 03/01/20 22:00 03/12/20 10:15 Eliquis - PO 5 mg BID SARAH Administration Ascorbic Acid 500 mg 03/01/20 22:00 03/12/20 10:16 Vitamin C - PO 500 mg BID SARAH Administration Atorvastatin Calcium 40 mg 03/01/20 22:00 03/11/20 21:12 Lipitor - PO 40 mg HS SARAH Administration Benzocaine/Menthol 1 each 03/01/20 10:20 03/08/20 09:57 Cepacol Lozenge - MM 1 each Q4H PRN Administration SORE THROAT Budesonide/Formoterol Fumarate 2 puff 03/01/20 22:00 03/12/20 10:16 Symbicort 80/4.5mcg - IH 2 puff BID SARAH Administration Cholecalciferol 2,000 unit 03/02/20 10:00 03/12/20 10:16 Vitamin D3 - PO 2,000 unit DAILY SARAH Administration Clotrimazole 1 applic 03/01/20 22:00 03/12/20 10:17 Lotrimin 1% Cream - TP Not Given BID [facility] Dexamethasone Sodium Phosphate 6 mg 03/09/20 12:15 03/12/20 00:07 Decadron Injection - IVPUSH 6 mg Q12H SARAH Administration Guaifenesin/Codeine Phosphate 10 ml 03/02/20 12:15 03/12/20 08:54 Robitussin Ac - PO 10 ml Q4H SARAH Administration Insulin Aspart 1 vial 03/08/20 16:23 03/12/20 06:01 Novolog Vial Sliding Scale - SQ 12 units ACHS SARAH Administration Protocol Insulin Aspart 10 units 03/09/20 09:12 03/12/20 06:01 Novolog SQ 10 units TIDAC SARAH Administration Insulin Detemir 30 units 03/09/20 07:00 03/12/20 06:02 Levemir Vial SQ 30 units ACBK SARAH Administration Insulin Detemir 25 units 03/08/20 22:00 03/11/20 21:13 Levemir Vial SQ 25 units HS SARAH Administration Melatonin 5 mg 03/01/20 22:00 03/03/20 21:41 Melatonin PO 5 mg HS PRN Administration INSOMNIA Pantoprazole Sodium 40 mg 03/04/20 10:00 03/12/20 10:16 Protonix - PO 40 mg DAILY SARAH Administration Zinc Sulfate 220 mg 03/01/20 22:00 03/12/20 10:16 Orazinc - PO 220 mg BID SARAH Administration ASSESSMENT/PLAN: 34M with HTN (no home meds) and newly diagnosed DM on this admission. He was admitted 01/24 after he presented with 3-4 days of increasing dyspnea and diarrhea after testing positive for COVID. #COVID 19 Pneumonia - Completed abx, remdesivir course, tocilizumab infusion, convalescent plasma transfusion - Was on Venti 50 yesterday, desatted with exertion, placed back on NRB - Pulm: 4L NC trial, desatted below 85%, will require Oximizer pendant/Astral device being delivered possibly today - CXR (03/10): No interval change, bi-basilar opacities - CTA (03/10): No PE, inc Rt Pulm artery pressyre, enlarged mediastinal lymph node - Decadron 6 mg BID, improvement in symptoms - Eliquis 5mg BID - Vitamin C, Vitamin D, Zinc - COVID (02/27) NEG # Atypical Chest Pain - Resolved, likely 2/2 excessive coughing, Robitussin Q4H - ACS ruled out: TNI neg x2; EKG showed NSR, no acute ischemic changes - Echo when stable/able to lie flat as per cardio - Plan for ECHO and MIBI when feasible with outpatient Cardio F/U with Dr. Rossi #Newly diagnosed DM - HbA1c 10.5, POC glucose in late 200s-300s - Levemir 30+25, Novolog 10TIDAC, Nov ISS - WILL REDUCE INSULIN WHEN DECADRON IS STOPPED # Headache - Fioricet Q6H #Hx of HTN - Started on Losartan here, holding for now due to low BP #Newly diagnosed HLD - Chol 204, LDL 122, HDL 62 - Lipitor 40 HS started #FEN - DM diet #Prophylaxis - On Eliquis 5 mg BID - Started Protonix 40mg #Dispo - Will monitor on M/S and attempt to wean off NRB Visit type - Emergency Visit Emergency Visit: Yes ED Registration Date: 01/25/20 Care time: The patient presented to the Emergency Department on the above date and was hospitalized for further evaluation of their emergent condition. - New Patient This patient is new to me today: No - Critical Care Critical Care patient: No ATTENDING PHYSICIAN STATEMENT I saw and evaluated the patient. I reviewed the resident's note and discussed the case with the resident. I agree with the resident's findings and plan as documented. SUBJECTIVE: OBJECTIVE: ASSESSMENT AND PLAN:
[2020-03-12 12:32] LABS: ANISOCYTOSIS 0; MACROCYTOSIS 0; PLATELET ESTIMATE NORMAL
--- NOTE | 2020-03-12 12:42 | PN ---
Teaching Attending Note Name of Resident: Vince Gardner ATTENDING PHYSICIAN STATEMENT I saw and evaluated the patient. I reviewed the resident's note and discussed the case with the resident. I agree with the resident's findings and plan as documented. SUBJECTIVE: Seen and examined at bedside. Condition unchanged OBJECTIVE: Last Vital Signs Temp Pulse Resp BP Pulse Ox 97.8 F 69 20 96/38 L 99 03/12/20 09:20 03/12/20 12:03 03/12/20 09:20 03/12/20 09:20 03/12/20 12:03 PE: Per resdient note Labs/Imaging: reviewed ASSESSMENT/PLAN: 34M with HTN (no home meds) and newly diagnosed DM on this admission. He was admitted 01/24 after he presented with 3-4 days of increasing dyspnea and diarrhea after testing positive for COVID. Has had extended stay and remains dependent on nonrebreather to maintain oxygenation #COVID 19 Pneumonia Has had extended stay and remains dependent on nonrebreather to maintain oxygenation. CT scan concerning for developing fibrosis. Discussed case with pulmonary. Will place consult to lung transplant team at [facility] who apparently specialize in obese patients - started on decadron due to cough, laryngitis - Completed abx, remdesivir course, tocilizumab infusion, convalescent plasma transfusion - dDimer downtrending, on Eliquis 5mg BID - Vitamin C, Vitamin D, Zinc - COVID (02/27) NEG -f/u pulm recs #Iron deficiency anemia 2/2 repeated blood draws over prolonged stay -completed IV iron 100mg x3 days #atypical CP Cards on board: appreciate recs -s/p Echo: poor quality, LV function normal -Stress MIBI when stable #DM With hyperglycemia 2/2 steroids - HbA1c 10.5, POC glucose in late 200s-300s - Levemir 30 + 25 with Novolog 10TIDAC and ISS -when steroids are stopped pt should be reverted to levemir 25-20, 6U TIDAC # Headache - Fioricet Q6H PRN # HLD - Lipitor 40 #Prophylaxis - On Eliquis 5 mg BID - Cont Protonix 40mg #Dispo - Continue to attempt to wean off oxygen as tolerated
--- NOTE | 2020-03-12 13:28 | PN ---
Progress Note, Physician History of Present Illness: 34yo male with recent COVID positive test presents to the ED with shortness of breath and extreme fatigue. Recently on azithromycin course without relief. Saturating at 98% on room air, placed on 2L nasal cannula upon arrival with symptomatic relief. Patient has been progressively short of breath since diagnosis. - Current Medication List Current Medications: Active Medications Acetaminophen (Tylenol -) 650 mg PO Q6H PRN PRN Reason: FEVER Albuterol Sulfate (Ventolin Hfa Inhaler -) 1 puff IH Q4H PRN PRN Reason: SHORT OF BREATH/WHEEZING Apixaban (Eliquis -) 5 mg PO BID [facility] Last Admin: 03/12/20 10:15 Dose: 5 mg Documented by: Ascorbic Acid (Vitamin C -) 500 mg PO BID [facility] Last Admin: 03/12/20 10:16 Dose: 500 mg Documented by: Atorvastatin Calcium (Lipitor -) 40 mg PO HS [facility] Last Admin: 03/11/20 21:12 Dose: 40 mg Documented by: Benzocaine/Menthol (Cepacol Lozenge -) 1 each MM Q4H PRN PRN Reason: SORE THROAT Last Admin: 03/08/20 09:57 Dose: 1 each Documented by: Budesonide/Formoterol Fumarate (Symbicort 80/4.5mcg -) 2 puff IH BID [facility] Last Admin: 03/12/20 10:16 Dose: 2 puff Documented by: Cholecalciferol (Vitamin D3 -) 2,000 unit PO DAILY [facility] Last Admin: 03/12/20 10:16 Dose: 2,000 unit Documented by: Clotrimazole (Lotrimin 1% Cream -) 1 applic TP BID [facility] Last Admin: 03/12/20 10:17 Dose: Not Given Documented by: Dexamethasone Sodium Phosphate (Decadron Injection -) 6 mg IVPUSH Q12H [facility] Last Admin: 03/12/20 12:21 Dose: 6 mg Documented by: Guaifenesin/Codeine Phosphate (Robitussin Ac -) 10 ml PO Q4H [facility] Last Admin: 03/12/20 12:22 Dose: 10 ml Documented by: Insulin Aspart (Novolog Vial Sliding Scale -) 1 vial SQ ACHS [facility]; Protocol Last Admin: 03/12/20 12:20 Dose: 6 units Documented by: Insulin Aspart (Novolog) 10 units SQ TIDAC [facility] Last Admin: 03/12/20 12:20 Dose: 10 units Documented by: Insulin Detemir (Levemir Vial) 30 units SQ ACBK [facility] Last Admin: 03/12/20 06:02 Dose: 30 units Documented by: Insulin Detemir (Levemir Vial) 25 units SQ HS [facility] Last Admin: 03/11/20 21:13 Dose: 25 units Documented by: Melatonin (Melatonin) 5 mg PO HS PRN PRN Reason: INSOMNIA Last Admin: 03/03/20 21:41 Dose: 5 mg Documented by: Pantoprazole Sodium (Protonix -) 40 mg PO DAILY [facility] Last Admin: 03/12/20 10:16 Dose: 40 mg Documented by: Zinc Sulfate (Orazinc -) 220 mg PO BID [facility] Last Admin: 03/12/20 10:16 Dose: 220 mg Documented by: - Objective Vital Signs: Vital Signs Temperature 97.8 F 03/12/20 09:20 Pulse Rate 73 03/12/20 12:25 Respiratory Rate 22 H 03/12/20 12:25 Blood Pressure 137/76 03/12/20 12:25 O2 Sat by Pulse Oximetry (%) 99 03/12/20 12:03 Eyes: Yes: WNL, Conjunctiva Clear, EOM Intact HENT: Yes: WNL, Atraumatic, Normocephalic Neck: Yes: WNL, Supple, Trachea Midline Cardiovascular: Yes: WNL, Regular Rate and Rhythm Respiratory: Yes: WNL, Regular, CTA Bilaterally Gastrointestinal: Yes: WNL, Normal Bowel Sounds Genitourinary: Yes: WNL Musculoskeletal: Yes: WNL Extremities: Yes: WNL Edema: No Integumentary: Yes: WNL Neurological: Yes: WNL, Alert, Oriented ...Motor Strength: WNL Psychiatric: Yes: WNL Labs: CBC, BMP 03/12/20 06:10 03/12/20 06:10 INR, PTT INR 1.00 (0.83-1.09) 01/25/20 16:29 Fibrinogen 468.0 mg/dL (238-498) 02/25/20 13:05 Problem List - Problems (1) Acute hypoxemic respiratory failure Code(s): J96.01 - ACUTE RESPIRATORY FAILURE WITH HYPOXIA (2) COVID-19 Code(s): U07.1 - COVID POSITIVE (3) HTN (hypertension) Code(s): I10 - ESSENTIAL (PRIMARY) HYPERTENSION (4) REYNALDO (obstructive sleep apnea) Code(s): G47.33 - OBSTRUCTIVE SLEEP APNEA (ADULT) (PEDIATRIC) (5) Obesity Code(s): E66.9 - OBESITY, UNSPECIFIED (6) Bronchitis Code(s): J40 - BRONCHITIS, NOT SPECIFIED ACUTE OR CHRONIC (7) Cough Code(s): R05 - COUGH Assessment/Plan Assessment/Plan s/p COVID pneumonia ARDS Hyperlipidemia DM Morbid Obesity Atypical chest pain Plan: COVID not detected (02/28/20) Bronchodilators, O2, steroids, and 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 TNI < 0.02 x 2 EKG:NSR; no acute changes LDL cholesterol 122 mg/dL; keep < 70 mg;dL with statin, diet change. On apixaban for anticoagulation. BUN/Cr, electrolytes, daily weight, Is and Os. ECHO TDS LVEF,nl Now on losartan (HTN; diastolic dysfunction; DM). Plan on stress MIBI, due to multiple CAD risks, when stable - could be done as outpatient.
--- NOTE | 2020-03-12 13:40 | PN ---
Progress Note (short form) - Note Progress Note: Remains on NRBM alternating with NIPPV. Voice and cough are improving. Astral device apparently being delivered today. Intake & Output 03/09/20 03/10/20 03/11/20 03/12/20 23:59 23:59 23:59 23:59 Intake Total 1890 1090 785 Output Total 3507 532 0027 Balance 840 345 -1665 Last Vital Signs Temp Pulse Resp BP Pulse Ox 97.8 F 73 22 H 137/76 99 03/12/20 09:20 03/12/20 12:25 03/12/20 12:25 03/12/20 12:25 03/12/20 12:03 Active Medications Acetaminophen (Tylenol -) 650 mg PO Q6H PRN PRN Reason: FEVER Albuterol Sulfate (Ventolin Hfa Inhaler -) 1 puff IH Q4H PRN PRN Reason: SHORT OF BREATH/WHEEZING Apixaban (Eliquis -) 5 mg PO BID [facility] Last Admin: 03/12/20 10:15 Dose: 5 mg Documented by: Ascorbic Acid (Vitamin C -) 500 mg PO BID [facility] Last Admin: 03/12/20 10:16 Dose: 500 mg Documented by: Atorvastatin Calcium (Lipitor -) 40 mg PO HS [facility] Last Admin: 03/11/20 21:12 Dose: 40 mg Documented by: Benzocaine/Menthol (Cepacol Lozenge -) 1 each MM Q4H PRN PRN Reason: SORE THROAT Last Admin: 03/08/20 09:57 Dose: 1 each Documented by: Budesonide/Formoterol Fumarate (Symbicort 80/4.5mcg -) 2 puff IH BID [facility] Last Admin: 03/12/20 10:16 Dose: 2 puff Documented by: Cholecalciferol (Vitamin D3 -) 2,000 unit PO DAILY [facility] Last Admin: 03/12/20 10:16 Dose: 2,000 unit Documented by: Clotrimazole (Lotrimin 1% Cream -) 1 applic TP BID [facility] Last Admin: 03/12/20 10:17 Dose: Not Given Documented by: Dexamethasone Sodium Phosphate (Decadron Injection -) 6 mg IVPUSH Q12H [facility] Last Admin: 03/12/20 12:21 Dose: 6 mg Documented by: Guaifenesin/Codeine Phosphate (Robitussin Ac -) 10 ml PO Q4H [facility] Last Admin: 03/12/20 12:22 Dose: 10 ml Documented by: Insulin Aspart (Novolog Vial Sliding Scale -) 1 vial SQ ACHS [facility]; Protocol Last Admin: 03/12/20 12:20 Dose: 6 units Documented by: Insulin Aspart (Novolog) 10 units SQ TIDAC [facility] Last Admin: 03/12/20 12:20 Dose: 10 units Documented by: Insulin Detemir (Levemir Vial) 30 units SQ ACBK [facility] Last Admin: 03/12/20 06:02 Dose: 30 units Documented by: Insulin Detemir (Levemir Vial) 25 units SQ HS [facility] Last Admin: 03/11/20 21:13 Dose: 25 units Documented by: Melatonin (Melatonin) 5 mg PO HS PRN PRN Reason: INSOMNIA Last Admin: 03/03/20 21:41 Dose: 5 mg Documented by: Pantoprazole Sodium (Protonix -) 40 mg PO DAILY [facility] Last Admin: 03/12/20 10:16 Dose: 40 mg Documented by: Zinc Sulfate (Orazinc -) 220 mg PO BID [facility] Last Admin: 03/12/20 10:16 Dose: 220 mg Documented by: Gen: Mildly tachypneic at rest Heart: RRR Lung: Diminished throughout Abd: soft, nontender Ext: no edema Laboratory Results - last 24 hr 03/11/20 03/11/20 03/12/20 16:43 21:16 05:59 WBC RBC Hgb Hct MCV MCH MCHC RDW Plt Count MPV Absolute Neuts (auto) Neutrophils % Neutrophils % (Manual) Band Neutrophils % Lymphocytes % Lymphocytes % (Manual) Monocytes % Monocytes % (Manual) Eosinophils % Eosinophils % (Manual) Basophils % Basophils % (Manual) Myelocytes % (Man) Promyelocytes % (Man) Blast Cells % (Manual) Nucleated RBC % Metamyelocytes Hypochromia Platelet Estimate Polychromasia Poikilocytosis Anisocytosis Microcytosis Macrocytosis D-Dimer Sodium Potassium Chloride Carbon Dioxide Anion Gap BUN Creatinine Est GFR (CKD-EPI)AfAm Est GFR (CKD-EPI)NonAf POC Glucometer 263 397 301 Random Glucose Calcium Phosphorus Magnesium Ferritin Total Bilirubin AST ALT Alkaline Phosphatase LD Total C-Reactive Protein Total Protein Albumin 03/12/20 03/12/20 03/12/20 06:10 06:10 06:10 WBC 11.7 H RBC 3.99 L Hgb 9.7 L Hct 30.7 L MCV 76.9 L MCH 24.4 L MCHC 31.8 L RDW 17.4 H Plt Count 334 MPV 8.6 Absolute Neuts (auto) 8.4 H Neutrophils % 71.3 Neutrophils % (Manual) 74.0 Band Neutrophils % 0.0 Lymphocytes % 20.9 Lymphocytes % (Manual) 20.0 D Monocytes % 7.1 Monocytes % (Manual) 5 Eosinophils % 0.2 D Eosinophils % (Manual) 0.0 Basophils % 0.5 Basophils % (Manual) 1.0 Myelocytes % (Man) 0 D Promyelocytes % (Man) 0 Blast Cells % (Manual) 0 Nucleated RBC % 0 Metamyelocytes 0 Hypochromia 0 Platelet Estimate Normal Polychromasia 0 Poikilocytosis 0 Anisocytosis 0 Microcytosis 0 Macrocytosis 0 D-Dimer 493 Sodium 137 Potassium 4.6 Chloride 98 Carbon Dioxide 35 H Anion Gap 4 L BUN 24.3 H Creatinine 1.1 Est GFR (CKD-EPI)AfAm 100.27 Est GFR (CKD-EPI)NonAf 86.51 POC Glucometer Random Glucose 310 H Calcium 8.6 Phosphorus 3.9 Magnesium 2.1 Ferritin 635.7 H Total Bilirubin 0.4 AST 8 L ALT 28 Alkaline Phosphatase 113 LD Total 463 H C-Reactive Protein 0.4 H Total Protein 5.9 L Albumin 2.8 L 03/12/20 11:21 WBC RBC Hgb Hct MCV MCH MCHC RDW Plt Count MPV Absolute Neuts (auto) Neutrophils % Neutrophils % (Manual) Band Neutrophils % Lymphocytes % Lymphocytes % (Manual) Monocytes % Monocytes % (Manual) Eosinophils % Eosinophils % (Manual) Basophils % Basophils % (Manual) Myelocytes % (Man) Promyelocytes % (Man) Blast Cells % (Manual) Nucleated RBC % Metamyelocytes Hypochromia Platelet Estimate Polychromasia Poikilocytosis Anisocytosis Microcytosis Macrocytosis D-Dimer Sodium Potassium Chloride Carbon Dioxide Anion Gap BUN Creatinine Est GFR (CKD-EPI)AfAm Est GFR (CKD-EPI)NonAf POC Glucometer 229 Random Glucose Calcium Phosphorus Magnesium Ferritin Total Bilirubin AST ALT Alkaline Phosphatase LD Total C-Reactive Protein Total Protein Albumin A/P Acute Hypoxic Respiratory Failure COVID Pneumonia ARDS HTN DM Anemia - Decadron - s/p remdesivir course - s/p tocilizumab infusion - s/p convalescent plasma transfusion - cough suppressants - continue anticoagulation - completed empiric antibiotics - O2 to keep SpO2 >90% - NIPPV at night & PRN - For DME set up today Patient trialed on 4 L NC @ rest: Quickly desaturated to below 85%. Therefore, the patient will require home Oxygen therapy with portability upon discharge with Oximizer pendant. Due to Chronic Respiratory Failure and advancement of Obstructive and Restrictive lung Disease with lack of gas exchange the patient requires ventilation via a non-invasive ventilator as BiPAP is no longer effective in treatment to effectively decrease work of breathing and to improve pulmonary status and prevent interruption or failure of respiratory support. Dr Cavazos
[2020-03-12] MEDS: ATORVASTATIN CA 40 MG TABLET (FP) PO SCH (22:22)
[2020-03-13] MEDS: DEXAMETHASONE SOD PHOSPHATE 4 MG/1 ML VIAL IVPUSH SCH ×3 (00:36→21:35)
[2020-03-13] MEDS: guaiFENesin/CODEINE 10 ML UNIT-DOSE CUPS PO SCH ×6 (00:36→21:35)
[2020-03-13] MEDS: INSULIN (LEVEMIR) 100 UNITS/ML UNITS SQ SCH ×2 (06:19→21:36)
[2020-03-13] MEDS: Insulin (LOG) Aspart 100 UNITS/ML VIAL SQ SCH ×3 (06:20→16:26)
[2020-03-13] MEDS: INSULIN SLIDING SCALE (NOVOLOG) 1 VIAL SQ SCH ×4 (06:21→21:38)
[2020-03-13 06:43] LABS: BASO % 0.4 % (0-2.0); EOS % 0.5 % (0-4.5); HEMATOCRIT 32.1 % (35.4-49); HEMOGLOBIN 10.1 GM/dL (11.7-16.9); MCH 24.2 pg (25.7-33.7); MCHC 31.3 g/dl (32.0-35.9); MEAN CELL VOLUME 77.4 fl (80-96); MEAN PLT VOLUME 9.1 fl (7.5-11.1); MONO % 6.9 % (3.8-10.2); NEUT % 76.2 % (42.8-82.8); PLATELET COUNT 321 K/MM3 (134-434); RBC 4.15 M/mm3 (4.00-5.60); RDW 17.4 % (11.9-15.9); WHITE BLOOD COUNT 11.7 K/mm3 (4.0-10.0)
[2020-03-13 07:09] LABS: ALBUMIN 2.9 g/dl (3.4-5.0); BILIRUBIN,TOTAL 0.4 mg/dL (0.2-1); BLOOD UREA NITROGEN 26.2 mg/dL (7-18); MAGNESIUM 2.2 mg/dL (1.8-2.4); PHOSPHOROUS 3.9 mg/dL (2.5-4.9); POTASSIUM 4.7 mmol/L (3.5-5.1); TOT PROT 6.2 g/dl (6.4-8.2)
--- NOTE | 2020-03-13 07:38 | PN ---
Progress Note, Physician History of Present Illness: pulmonary awake,no change dyspneic on 70%nrb,o3 sat 100% - Current Medication List Current Medications: Active Medications Acetaminophen (Tylenol -) 650 mg PO Q6H PRN PRN Reason: FEVER Albuterol Sulfate (Ventolin Hfa Inhaler -) 1 puff IH Q4H PRN PRN Reason: SHORT OF BREATH/WHEEZING Apixaban (Eliquis -) 5 mg PO BID [facility] Last Admin: 03/12/20 22:21 Dose: 5 mg Documented by: Ascorbic Acid (Vitamin C -) 500 mg PO BID [facility] Last Admin: 03/12/20 22:22 Dose: 500 mg Documented by: Atorvastatin Calcium (Lipitor -) 40 mg PO HS [facility] Last Admin: 03/12/20 22:22 Dose: 40 mg Documented by: Benzocaine/Menthol (Cepacol Lozenge -) 1 each MM Q4H PRN PRN Reason: SORE THROAT Last Admin: 03/08/20 09:57 Dose: 1 each Documented by: Budesonide/Formoterol Fumarate (Symbicort 80/4.5mcg -) 2 puff IH BID [facility] Last Admin: 03/12/20 22:25 Dose: 2 puff Documented by: Cholecalciferol (Vitamin D3 -) 2,000 unit PO DAILY [facility] Last Admin: 03/12/20 10:16 Dose: 2,000 unit Documented by: Clotrimazole (Lotrimin 1% Cream -) 1 applic TP BID [facility] Last Admin: 03/12/20 22:26 Dose: Not Given Documented by: Dexamethasone Sodium Phosphate (Decadron Injection -) 6 mg IVPUSH Q12H [facility] Last Admin: 03/13/20 00:36 Dose: 6 mg Documented by: Guaifenesin/Codeine Phosphate (Robitussin Ac -) 10 ml PO Q4H [facility] Last Admin: 03/13/20 05:08 Dose: Not Given Documented by: Insulin Aspart (Novolog Vial Sliding Scale -) 1 vial SQ ACHS [facility]; Protocol Last Admin: 03/13/20 06:21 Dose: 12 units Documented by: Insulin Aspart (Novolog) 10 units SQ TIDAC [facility] Last Admin: 03/13/20 06:20 Dose: 10 units Documented by: Insulin Detemir (Levemir Vial) 30 units SQ ACBK [facility] Last Admin: 03/13/20 06:19 Dose: 30 units Documented by: Insulin Detemir (Levemir Vial) 25 units SQ HS [facility] Last Admin: 03/12/20 22:22 Dose: 25 units Documented by: Melatonin (Melatonin) 5 mg PO HS PRN PRN Reason: INSOMNIA Last Admin: 03/03/20 21:41 Dose: 5 mg Documented by: Pantoprazole Sodium (Protonix -) 40 mg PO DAILY [facility] Last Admin: 03/12/20 10:16 Dose: 40 mg Documented by: Zinc Sulfate (Orazinc -) 220 mg PO BID [facility] Last Admin: 03/12/20 22:22 Dose: 220 mg Documented by: - Objective Vital Signs: Vital Signs Temperature 97.6 F 03/13/20 06:46 Pulse Rate 72 03/13/20 06:46 Respiratory Rate 20 03/13/20 06:46 Blood Pressure 104/50 L 03/13/20 06:46 O2 Sat by Pulse Oximetry (%) 100 03/13/20 04:41 Constitutional: Yes: Calm, Mild Distress, Obese Eyes: Yes: WNL HENT: Yes: WNL Neck: Yes: WNL Cardiovascular: Yes: Regular Rate and Rhythm, S1, S2 Respiratory: Yes: Diminished Gastrointestinal: Yes: Normal Bowel Sounds, Soft Extremities: Yes: WNL Edema: No Labs: CBC, BMP 03/13/20 05:25 03/13/20 05:25 INR, PTT INR 1.00 (0.83-1.09) 01/25/20 16:29 Fibrinogen 468.0 mg/dL (238-498) 02/25/20 13:05 Problem List - Problems (1) Acute hypoxemic respiratory failure Code(s): J96.01 - ACUTE RESPIRATORY FAILURE WITH HYPOXIA (2) COVID-19 Code(s): U07.1 - COVID POSITIVE (3) HTN (hypertension) Code(s): I10 - ESSENTIAL (PRIMARY) HYPERTENSION (4) REYNALDO (obstructive sleep apnea) Code(s): G47.33 - OBSTRUCTIVE SLEEP APNEA (ADULT) (PEDIATRIC) (5) Obesity Code(s): E66.9 - OBESITY, UNSPECIFIED Assessment/Plan A/P Acute Hypoxic Respiratory Failure COVID Pneumonia Interstitial/alveolar infiltrates s/p Covid ARDS HTN DM Anemia - continue Decadron - s/p remdesivir course - s/p tocilizumab infusion - s/p convalescent plasma transfusion - cough suppressants - continue anticoagulation - completed empiric antibiotics - O2 to keep SpO2 >90% - NIPPV at night & PRN - Wt loss - patient will require home Oxygen therapy with portability upon discharge with Oximizer pendant. Due to Chronic Respiratory Failure and advancement of Obstructive and Restrictive lung Disease with lack of gas exchange the patient requires ventilation via a non-invasive ventilator as BiPAP is no longer effective in treatment to effectively decrease work of breathing and to improve pulmonary status and prevent interruption or failure of respiratory support. DR MCKEON
[2020-03-13] MEDS ORDERED: PT OWN MED DRAWER 7, Y5N ONE (09:46)
[2020-03-13] MEDS: ASCORBIC ACID 500 MG TABLET (FP) PO SCH ×2 (09:57→21:34)
[2020-03-13] MEDS: PANTOPRAZOLE 40 MG TABLET PO SCH (09:57)
[2020-03-13] MEDS: APIXABAN 5 MG TABLET PO SCH ×2 (09:57→21:35)
[2020-03-13] MEDS: CHOLECALCIFEROL (VIT D3) 1,000 UNIT (25 MCG) TABLET PO SCH (09:57)
[2020-03-13] MEDS: ZINC SULFATE 220 MG CAPSULE (FP) PO SCH ×2 (09:58→21:40)
[2020-03-13] MEDS: BUDESONIDE/FORMETEROL FUMARATE 80/4.5 mcg INHALER IH SCH ×2 (10:13→21:40)
[2020-03-13] MEDS: CLOTRIMAZOLE 1% CREAM 15 GM TUBE TP SCH ×2 (10:13→21:38)
[2020-03-13 10:19] LABS: ANISOCYTOSIS 1+; MACROCYTOSIS 0; PLATELET ESTIMATE NORMAL
[2020-03-13] MEDS ORDERED: INSULIN (NOVOLOG) ASPART 100 UNITS/ML 10ML VIAL ONE (11:23)
--- NOTE | 2020-03-13 13:27 | PN ---
Physical Exam: SUBJECTIVE: Patient seen and examined at the bedside, standing, breathing/coughing unchanged compared to yesterday OBJECTIVE: Vital Signs Period Temp Pulse Resp BP Sys/Miner Pulse Ox Last 24 Hr 97.6 F-98.3 F 71-101 20-22 97-137/50-69 99-100 GENERAL: AOx3 HEAD: Normal with no signs of trauma. EYES: PERRL, extraocular movements intact, sclera anicteric, conjunctiva clear. No ptosis. NECK: Trachea midline, full range of motion, supple. LUNGS: On NRB. Poor air movement throughout, no wheezing HEART: RRR. Normal S1, S2. No murmurs noted. ABDOMEN: Obese. Soft, nontender, obese, no guarding, no rebound, no hepatosplenomegaly, no masses. EXTREMITIES: 2+ pulses, warm, well-perfused, no edema. NEUROLOGICAL: Cranial nerves II through XII grossly intact. Normal speech, gait not observed. Laboratory Results - last 24 hr 03/12/20 03/12/20 03/13/20 16:44 22:20 05:25 WBC RBC Hgb Hct MCV MCH MCHC RDW Plt Count MPV Absolute Neuts (auto) Neutrophils % Neutrophils % (Manual) Band Neutrophils % Lymphocytes % Lymphocytes % (Manual) Monocytes % Monocytes % (Manual) Eosinophils % Eosinophils % (Manual) Basophils % Basophils % (Manual) Myelocytes % (Man) Promyelocytes % (Man) Blast Cells % (Manual) Nucleated RBC % Metamyelocytes Hypochromia Platelet Estimate Polychromasia Poikilocytosis Anisocytosis Microcytosis Macrocytosis D-Dimer Sodium 135 L Potassium 4.7 Chloride 97 L Carbon Dioxide 32 Anion Gap 6 L BUN 26.2 H Creatinine 1.0 Est GFR (CKD-EPI)AfAm 112.51 Est GFR (CKD-EPI)NonAf 97.08 POC Glucometer 220 317 Random Glucose 351 H Calcium 9.0 Phosphorus 3.9 Magnesium 2.2 Ferritin 568.5 H Total Bilirubin 0.4 AST 10 L ALT 30 Alkaline Phosphatase 130 H LD Total 469 H C-Reactive Protein 0.4 H Total Protein 6.2 L Albumin 2.9 L 03/13/20 03/13/20 03/13/20 05:25 05:25 06:16 WBC 11.7 H RBC 4.15 Hgb 10.1 L Hct 32.1 L MCV 77.4 L MCH 24.2 L MCHC 31.3 L RDW 17.4 H Plt Count 321 MPV 9.1 Absolute Neuts (auto) 8.9 H Neutrophils % 76.2 Neutrophils % (Manual) 71.4 Band Neutrophils % 0.0 Lymphocytes % 16.0 D Lymphocytes % (Manual) 16.3 Monocytes % 6.9 Monocytes % (Manual) 8 Eosinophils % 0.5 D Eosinophils % (Manual) 0.0 Basophils % 0.4 Basophils % (Manual) 0.0 Myelocytes % (Man) 3 H D Promyelocytes % (Man) 0 Blast Cells % (Manual) 0 Nucleated RBC % 0 Metamyelocytes 1 D Hypochromia 0 Platelet Estimate Normal Polychromasia 1+ Poikilocytosis 0 Anisocytosis 1+ Microcytosis 1+ Macrocytosis 0 D-Dimer 455 Sodium Potassium Chloride Carbon Dioxide Anion Gap BUN Creatinine Est GFR (CKD-EPI)AfAm Est GFR (CKD-EPI)NonAf POC Glucometer 330 Random Glucose Calcium Phosphorus Magnesium Ferritin Total Bilirubin AST ALT Alkaline Phosphatase LD Total C-Reactive Protein Total Protein Albumin 03/13/20 11:27 WBC RBC Hgb Hct MCV MCH MCHC RDW Plt Count MPV Absolute Neuts (auto) Neutrophils % Neutrophils % (Manual) Band Neutrophils % Lymphocytes % Lymphocytes % (Manual) Monocytes % Monocytes % (Manual) Eosinophils % Eosinophils % (Manual) Basophils % Basophils % (Manual) Myelocytes % (Man) Promyelocytes % (Man) Blast Cells % (Manual) Nucleated RBC % Metamyelocytes Hypochromia Platelet Estimate Polychromasia Poikilocytosis Anisocytosis Microcytosis Macrocytosis D-Dimer Sodium Potassium Chloride Carbon Dioxide Anion Gap BUN Creatinine Est GFR (CKD-EPI)AfAm Est GFR (CKD-EPI)NonAf POC Glucometer 237 Random Glucose Calcium Phosphorus Magnesium Ferritin Total Bilirubin AST ALT Alkaline Phosphatase LD Total C-Reactive Protein Total Protein Albumin Active Medications Generic Name Dose Route Start Last Admin Trade Name Freq PRN Reason Stop Dose Admin Acetaminophen 650 mg 03/01/20 15:34 Tylenol - PO Q6H PRN FEVER Albuterol Sulfate 1 puff 03/01/20 15:34 Ventolin Hfa Inhaler - IH Q4H PRN SHORT OF BREATH/WHEEZING Apixaban 5 mg 03/01/20 22:00 03/13/20 09:57 Eliquis - PO 5 mg BID SARAH Administration Ascorbic Acid 500 mg 03/01/20 22:00 03/13/20 09:57 Vitamin C - PO 500 mg BID [facility]AH Administration Atorvastatin Calcium 40 mg 03/01/20 22:00 03/12/20 22:22 Lipitor - PO 40 mg HS [facility]AH Administration Benzocaine/Menthol 1 each 03/01/20 10:20 03/08/20 09:57 Cepacol Lozenge - MM 1 each Q4H PRN Administration SORE THROAT Budesonide/Formoterol Fumarate 2 puff 03/01/20 22:00 03/13/20 10:13 Symbicort 80/4.5mcg - IH 2 puff BID [facility]AH Administration Cholecalciferol 2,000 unit 03/02/20 10:00 03/13/20 09:57 Vitamin D3 - PO 2,000 unit DAILY [facility] Administration Clotrimazole 1 applic 03/01/20 22:00 03/13/20 10:13 Lotrimin 1% Cream - TP Not Given BID [facility] Dexamethasone Sodium Phosphate 6 mg 03/09/20 12:15 03/13/20 11:59 Decadron Injection - IVPUSH 6 mg Q12H [facility] Administration Guaifenesin/Codeine Phosphate 10 ml 03/02/20 12:15 03/13/20 12:00 Robitussin Ac - PO 10 ml Q4H [facility]AH Administration Insulin Aspart 1 vial 03/08/20 16:23 03/13/20 11:29 Novolog Vial Sliding Scale - SQ 6 units ACHS [facility] Administration Protocol Insulin Aspart 10 units 03/09/20 09:12 03/13/20 11:29 Novolog SQ 10 units TIDAC [facility] Administration Insulin Detemir 30 units 03/09/20 07:00 03/13/20 06:19 Levemir Vial SQ 30 units ACBK [facility] Administration Insulin Detemir 25 units 03/08/20 22:00 03/12/20 22:22 Levemir Vial SQ 25 units HS [facility] Administration Melatonin 5 mg 03/01/20 22:00 03/03/20 21:41 Melatonin PO 5 mg HS PRN Administration INSOMNIA Pantoprazole Sodium 40 mg 03/04/20 10:00 03/13/20 09:57 Protonix - PO 40 mg DAILY [facility] Administration Zinc Sulfate 220 mg 03/01/20 22:00 03/13/20 09:58 Orazinc - PO 220 mg BID [facility] Administration ASSESSMENT/PLAN: 34M with HTN (no home meds) and newly diagnosed DM on this admission. He was admitted 01/24 after he presented with 3-4 days of increasing dyspnea and diarrhea after testing positive for COVID. #COVID 19 Pneumonia - Completed abx, remdesivir course, tocilizumab infusion, convalescent plasma transfusion - Was on Venti 50 yesterday, desatted with exertion, placed back on NRB - Pulm: NRB, Astral device pending delivery - CXR (03/10): No interval change, bi-basilar opacities - CTA (03/10): No PE, inc Rt Pulm artery pressyre, enlarged mediastinal lymph node - Decadron 6 mg BID - Eliquis 5mg BID - Vitamin C, Vitamin D, Zinc - COVID (02/27) NEG # Atypical Chest Pain - Resolved, likely 2/2 excessive coughing, Robitussin Q4H - ACS ruled out: TNI neg x2; EKG showed NSR, no acute ischemic changes - Echo when stable/able to lie flat as per cardio - Plan for ECHO and MIBI when feasible with outpatient Cardio F/U with Dr. Rossi #Newly diagnosed DM - HbA1c 10.5, POC glucose in late 200s-300s - Levemir 30+25, Novolog 10TIDAC, Nov ISS - WILL REDUCE INSULIN WHEN DECADRON IS STOPPED # Headache - Fioricet Q6H #Hx of HTN - Started on Losartan here, holding for now due to low BP #Newly diagnosed HLD - Chol 204, LDL 122, HDL 62 - Lipitor 40 HS started #FEN - DM diet #Prophylaxis - On Eliquis 5 mg BID - Started Protonix 40mg #Dispo - Pending Astral device Visit type - Emergency Visit Emergency Visit: No - New Patient This patient is new to me today: No - Critical Care Critical Care patient: No ATTENDING PHYSICIAN STATEMENT I saw and evaluated the patient. I reviewed the resident's note and discussed the case with the resident. I agree with the resident's findings and plan as documented. SUBJECTIVE: OBJECTIVE: ASSESSMENT AND PLAN:
--- NOTE | 2020-03-13 14:01 | PN ---
Teaching Attending Note Name of Resident: Vince Gardner ATTENDING PHYSICIAN STATEMENT I saw and evaluated the patient. I reviewed the resident's note and discussed the case with the resident. I agree with the resident's findings and plan as documented. SUBJECTIVE: Feeling comfortable on NRB and BiPAP overnight. Some ongoing cough. Ambulated in hallway. OBJECTIVE: Afebrile, Hemodynamically stable. SpO2 100% on 15L NRB Last Vital Signs Temp Pulse Resp BP Pulse Ox 97.6 F 71 20 114/69 100 03/13/20 08:55 03/13/20 08:55 03/13/20 08:55 03/13/20 08:55 03/13/20 10:00 HEENT - Atraumatic, Normocephalic. Heart - S1, S2, RRR Lungs - decreased air entry at bases Abdomen - high BMI. Soft, non-tender. Bowel Sounds normal. Extremities - mild edema, no calf tenderness. Neuro - AAO x 3. Tone/Power normal all extremities. Laboratory Results - last 24 hr 03/12/20 03/12/20 03/13/20 16:44 22:20 05:25 WBC RBC Hgb Hct MCV MCH MCHC RDW Plt Count MPV Absolute Neuts (auto) Neutrophils % Neutrophils % (Manual) Band Neutrophils % Lymphocytes % Lymphocytes % (Manual) Monocytes % Monocytes % (Manual) Eosinophils % Eosinophils % (Manual) Basophils % Basophils % (Manual) Myelocytes % (Man) Promyelocytes % (Man) Blast Cells % (Manual) Nucleated RBC % Metamyelocytes Hypochromia Platelet Estimate Polychromasia Poikilocytosis Anisocytosis Microcytosis Macrocytosis D-Dimer Sodium 135 L Potassium 4.7 Chloride 97 L Carbon Dioxide 32 Anion Gap 6 L BUN 26.2 H Creatinine 1.0 Est GFR (CKD-EPI)AfAm 112.51 Est GFR (CKD-EPI)NonAf 97.08 POC Glucometer 220 317 Random Glucose 351 H Calcium 9.0 Phosphorus 3.9 Magnesium 2.2 Ferritin 568.5 H Total Bilirubin 0.4 AST 10 L ALT 30 Alkaline Phosphatase 130 H LD Total 469 H C-Reactive Protein 0.4 H Total Protein 6.2 L Albumin 2.9 L 03/13/20 03/13/20 03/13/20 05:25 05:25 06:16 WBC 11.7 H RBC 4.15 Hgb 10.1 L Hct 32.1 L MCV 77.4 L MCH 24.2 L MCHC 31.3 L RDW 17.4 H Plt Count 321 MPV 9.1 Absolute Neuts (auto) 8.9 H Neutrophils % 76.2 Neutrophils % (Manual) 71.4 Band Neutrophils % 0.0 Lymphocytes % 16.0 D Lymphocytes % (Manual) 16.3 Monocytes % 6.9 Monocytes % (Manual) 8 Eosinophils % 0.5 D Eosinophils % (Manual) 0.0 Basophils % 0.4 Basophils % (Manual) 0.0 Myelocytes % (Man) 3 H D Promyelocytes % (Man) 0 Blast Cells % (Manual) 0 Nucleated RBC % 0 Metamyelocytes 1 D Hypochromia 0 Platelet Estimate Normal Polychromasia 1+ Poikilocytosis 0 Anisocytosis 1+ Microcytosis 1+ Macrocytosis 0 D-Dimer 455 Sodium Potassium Chloride Carbon Dioxide Anion Gap BUN Creatinine Est GFR (CKD-EPI)AfAm Est GFR (CKD-EPI)NonAf POC Glucometer 330 Random Glucose Calcium Phosphorus Magnesium Ferritin Total Bilirubin AST ALT Alkaline Phosphatase LD Total C-Reactive Protein Total Protein Albumin 03/13/20 11:27 WBC RBC Hgb Hct MCV MCH MCHC RDW Plt Count MPV Absolute Neuts (auto) Neutrophils % Neutrophils % (Manual) Band Neutrophils % Lymphocytes % Lymphocytes % (Manual) Monocytes % Monocytes % (Manual) Eosinophils % Eosinophils % (Manual) Basophils % Basophils % (Manual) Myelocytes % (Man) Promyelocytes % (Man) Blast Cells % (Manual) Nucleated RBC % Metamyelocytes Hypochromia Platelet Estimate Polychromasia Poikilocytosis Anisocytosis Microcytosis Macrocytosis D-Dimer Sodium Potassium Chloride Carbon Dioxide Anion Gap BUN Creatinine Est GFR (CKD-EPI)AfAm Est GFR (CKD-EPI)NonAf POC Glucometer 237 Random Glucose Calcium Phosphorus Magnesium Ferritin Total Bilirubin AST ALT Alkaline Phosphatase LD Total C-Reactive Protein Total Protein Albumin Current Medications Generic Name Dose Route Start Last Admin Trade Name Freq PRN Reason Stop Dose Admin Acetaminophen 650 mg 03/01/20 15:34 Tylenol - PO Q6H PRN FEVER Albuterol Sulfate 1 puff 03/01/20 15:34 Ventolin Hfa Inhaler - IH Q4H PRN SHORT OF BREATH/WHEEZING Apixaban 5 mg 03/01/20 22:00 03/13/20 09:57 Eliquis - PO 5 mg BID SARAH Administration Ascorbic Acid 500 mg 03/01/20 22:00 03/13/20 09:57 Vitamin C - PO 500 mg BID SARAH Administration Atorvastatin Calcium 40 mg 03/01/20 22:00 03/12/20 22:22 Lipitor - PO 40 mg HS SARAH Administration Benzocaine/Menthol 1 each 03/01/20 10:20 03/08/20 09:57 Cepacol Lozenge - MM 1 each Q4H PRN Administration SORE THROAT Budesonide/Formoterol Fumarate 2 puff 03/01/20 22:00 03/13/20 10:13 Symbicort 80/4.5mcg - IH 2 puff BID SARAH Administration Cholecalciferol 2,000 unit 03/02/20 10:00 03/13/20 09:57 Vitamin D3 - PO 2,000 unit DAILY SARAH Administration Clotrimazole 1 applic 03/01/20 22:00 03/13/20 10:13 Lotrimin 1% Cream - TP Not Given BID [facility] Dexamethasone Sodium Phosphate 6 mg 03/09/20 12:15 03/13/20 11:59 Decadron Injection - IVPUSH 6 mg Q12H SARAH Administration Guaifenesin/Codeine Phosphate 10 ml 03/02/20 12:15 03/13/20 12:00 Robitussin Ac - PO 10 ml Q4H SARAH Administration Insulin Aspart 1 vial 03/08/20 16:23 03/13/20 11:29 Novolog Vial Sliding Scale - SQ 6 units ACHS [facility] Administration Protocol Insulin Aspart 10 units 03/09/20 09:12 03/13/20 11:29 Novolog SQ 10 units TIDAC SARAH Administration Insulin Detemir 30 units 03/09/20 07:00 03/13/20 06:19 Levemir Vial SQ 30 units ACBK SARAH Administration Insulin Detemir 25 units 03/08/20 22:00 03/12/20 22:22 Levemir Vial SQ 25 units HS SARAH Administration Melatonin 5 mg 03/01/20 22:00 03/03/20 21:41 Melatonin PO 5 mg HS PRN Administration INSOMNIA Pantoprazole Sodium 40 mg 03/04/20 10:00 03/13/20 09:57 Protonix - PO 40 mg DAILY SARAH Administration Zinc Sulfate 220 mg 03/01/20 22:00 03/13/20 09:58 Orazinc - PO 220 mg BID SARAH Administration Home Medications Medication Instructions Recorded NK [No Known Home Medication] 03/02/20 ASSESSMENT AND PLAN: 34 year old male with history fo Obesity, HTN (not on medication), presented 01/24 with a 3-4 day history of increasing dyspnea and diarrhea after testing positive for COVID. He was newly diagnosed as having DM 2 on this admission, and currently remains dependent on NRB and BiPAP to maintain adequate oxygenation. CT Chest - bilateral infiltrates, mediastinal LN - for 3 month follow up. 1. 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 DDIMER improving - Continue Eliquis 5mg BID Vitamin C, Vitamin D, Zinc Repeat COVID negative NIPPV at night & PRN Awaiting Astral NIV device with Home O2/Oximizer pendant Taper Decadron Further recommendations as per Pulm, possible Lung transplant candidate in the future. 2. DM 2 - newly diagnosed A1c 10.5 Currently on Levemir 30/25 and Novolog ac Hyperglycemic episodes compounded by Steroids. 3. Iron deficiency anemia s/p IV iron 100mg x3 days No evidence of acute blood loss. Further investigation as out-patient. 4. Atypical CP - resolved. Echo - poor quality, appears normal. Stress MIBI lwhen stable as per Cardio. 5. HLD - started on Statin. 6. Mediastinal LN on CT Chest - likely reactive, for 3 month follow up DVT Px on Eliquis GI PX - PPI.
--- NOTE | 2020-03-13 15:45 | PN ---
Progress Note, Physician Chief Complaint: Pt A&Ox3;sitting up at bedside, conversing by video with someone; frequent dry cough with accompanying SOB; on non-rebreather (70% O2). History of Present Illness: 34yo black man with morbid obesity, DM, hyperlipidemia, ?sleep apnea, recent COVID positive test, presents to the ED with shortness of breath and extreme fatigue. Recently on azithromycin course without relief. Saturating at 98% on room air, placed on 2L nasal cannula upon arrival with symptomatic relief. Patient has been progressively short of breath since diagnosis. Called because pt c/o strong, sharp left breast pain that began today at rest, lasted about an hour. Pt says he had had a similar pain, though less severe and of shorter duration while in the ICU. Pt denies personal or family hx of heart disease; his father has DM. Pt never smoked; does not drink to excess. 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 - Current Medication List Current Medications: Active Medications Acetaminophen (Tylenol -) 650 mg PO Q6H PRN PRN Reason: FEVER Albuterol Sulfate (Ventolin Hfa Inhaler -) 1 puff IH Q4H PRN PRN Reason: SHORT OF BREATH/WHEEZING Apixaban (Eliquis -) 5 mg PO BID [facility] Last Admin: 03/13/20 09:57 Dose: 5 mg Documented by: Ascorbic Acid (Vitamin C -) 500 mg PO BID [facility] Last Admin: 03/13/20 09:57 Dose: 500 mg Documented by: Atorvastatin Calcium (Lipitor -) 40 mg PO HS [facility] Last Admin: 03/12/20 22:22 Dose: 40 mg Documented by: Benzocaine/Menthol (Cepacol Lozenge -) 1 each MM Q4H PRN PRN Reason: SORE THROAT Last Admin: 03/08/20 09:57 Dose: 1 each Documented by: Budesonide/Formoterol Fumarate (Symbicort 80/4.5mcg -) 2 puff IH BID [facility] Last Admin: 03/13/20 10:13 Dose: 2 puff Documented by: Cholecalciferol (Vitamin D3 -) 2,000 unit PO DAILY [facility] Last Admin: 03/13/20 09:57 Dose: 2,000 unit Documented by: Clotrimazole (Lotrimin 1% Cream -) 1 applic TP BID [facility] Last Admin: 03/13/20 10:13 Dose: Not Given Documented by: Dexamethasone Sodium Phosphate (Decadron Injection -) 4 mg IVPUSH Q12H [facility] Guaifenesin/Codeine Phosphate (Robitussin Ac -) 10 ml PO Q4H [facility] Last Admin: 03/13/20 12:00 Dose: 10 ml Documented by: Insulin Aspart (Novolog Vial Sliding Scale -) 1 vial SQ ACHS [facility]; Protocol Last Admin: 03/13/20 11:29 Dose: 6 units Documented by: Insulin Aspart (Novolog) 10 units SQ TIDAC [facility] Last Admin: 03/13/20 11:29 Dose: 10 units Documented by: Insulin Detemir (Levemir Vial) 30 units SQ ACBK [facility] Last Admin: 03/13/20 06:19 Dose: 30 units Documented by: Insulin Detemir (Levemir Vial) 25 units SQ HS [facility] Last Admin: 03/12/20 22:22 Dose: 25 units Documented by: Melatonin (Melatonin) 5 mg PO HS PRN PRN Reason: INSOMNIA Last Admin: 03/03/20 21:41 Dose: 5 mg Documented by: Pantoprazole Sodium (Protonix -) 40 mg PO DAILY [facility] Last Admin: 03/13/20 09:57 Dose: 40 mg Documented by: Zinc Sulfate (Orazinc -) 220 mg PO BID [facility] Last Admin: 03/13/20 09:58 Dose: 220 mg Documented by: - Objective Vital Signs: Vital Signs Temperature 97.6 F 03/13/20 08:55 Pulse Rate 71 03/13/20 08:55 Respiratory Rate 20 03/13/20 08:55 Blood Pressure 114/69 03/13/20 08:55 O2 Sat by Pulse Oximetry (%) 100 03/13/20 10:00 Constitutional: Yes: Obese Eyes: Yes: WNL HENT: Yes: WNL Cardiovascular: Yes: S1, S2, S4 Respiratory: Yes: On Venti-Mask, SOB, Tachypnea Gastrointestinal: Yes: Soft, Abdomen, Obese ...Rectal Exam: Yes: Deferred Genitourinary: No: Anuria Musculoskeletal: Yes: Muscle Weakness Extremities: Yes: Cool Edema: No Peripheral Pulses WNL: Yes Integumentary: Yes: WNL Neurological: Yes: Alert, Oriented Psychiatric: Yes: Alert, Oriented, Other (anxiety/depression/anger) Labs: CBC, BMP 03/13/20 05:25 03/13/20 05:25 INR, PTT INR 1.00 (0.83-1.09) 01/25/20 16:29 Fibrinogen 468.0 mg/dL (238-498) 02/25/20 13:05 Abnormal Lab Results 03/13/20 03/14/20 03/14/20 05:25 06:00 06:00 WBC 12.7 H Hgb 9.9 L Hct 32.1 L MCV 77.9 L MCH 24.0 L MCHC 30.8 L RDW 17.5 H Absolute Neuts (auto) 8.3 H Myelocytes % (Man) 3 H D Anion Gap 6 L BUN 19.4 H Random Glucose 316 H Ferritin 514.4 H AST 9 L Alkaline Phosphatase 150 H LD Total 428 H Total Protein 5.9 L Albumin 2.8 L - ....Imaging Chest X-ray: Image Reviewed EKG: Image Reviewed Assessment/Plan COVID pneumonia ARDS Hyperlipidemia DM Morbid Obesity Atypical chest pain Plan: COVID not detected (02/28/20) Continue bronchodilators, O2, steroids, and antibiotics per cadd technician (awaits home O2 unit). TNI < 0.02 x 2 EKG:NSR; no acute changes LDL cholesterol 122 mg/dL; keep < 70 mg;dL with statin, diet change. On apixaban for anticoagulation. BUN/Cr, electrolytes, daily weight, Is and Os. ECHO: suboptimal study; normal LVEF; could not comment on RV or RA; suggest repeat test when pt better able to tolerate it (e.g. be positioned for better visual windows). Now on losartan (HTN; diastolic dysfunction; DM). Plan on stress MIBI, due to multiple CAD risks, when stable.
[2020-03-13] MEDS: ATORVASTATIN CA 40 MG TABLET (FP) PO SCH (21:35)
[2020-03-14] MEDS: guaiFENesin/CODEINE 10 ML UNIT-DOSE CUPS PO SCH ×6 (01:50→20:39)
[2020-03-14] MEDS: Insulin (LOG) Aspart 100 UNITS/ML VIAL SQ SCH ×3 (06:23→17:23)
[2020-03-14] MEDS: INSULIN (LEVEMIR) 100 UNITS/ML UNITS SQ SCH ×2 (06:23→21:42)
[2020-03-14] MEDS: INSULIN SLIDING SCALE (NOVOLOG) 1 VIAL SQ SCH ×4 (06:24→21:45)
[2020-03-14 06:53] LABS: BASO % 0.3 % (0-2.0); EOS % 0.2 % (0-4.5); HEMATOCRIT 32.1 % (35.4-49); HEMOGLOBIN 9.9 GM/dL (11.7-16.9); LYMPH % 26.8 % (8-40); MCHC 30.8 g/dl (32.0-35.9); MEAN CELL VOLUME 77.9 fl (80-96); MEAN PLT VOLUME 8.9 fl (7.5-11.1); MONO % 6.8 % (3.8-10.2); NEUT % 65.9 % (42.8-82.8); PLATELET COUNT 313 K/MM3 (134-434); RBC 4.12 M/mm3 (4.00-5.60); RDW 17.5 % (11.9-15.9); WHITE BLOOD COUNT 12.7 K/mm3 (4.0-10.0)
[2020-03-14 07:00] LABS: ALBUMIN 2.8 g/dl (3.4-5.0); ALK PHOS 150 U/L (45-117); ANION GAP 6 MMOL/L (8-16); BILIRUBIN,TOTAL 0.4 mg/dL (0.2-1); BLOOD UREA NITROGEN 19.4 mg/dL (7-18); CALCIUM 8.6 mg/dL (8.5-10.1); CHLORIDE 98 mmol/L (98-107); CO2 32 mmol/L (21-32); CREATININE 0.9 mg/dL (0.55-1.3); GLUCOSE,RANDOM 316 mg/dL (74-106); LDH 428 U/L (87-246); MAGNESIUM 2.2 mg/dL (1.8-2.4); PHOSPHOROUS 3.7 mg/dL (2.5-4.9); POTASSIUM 4.3 mmol/L (3.5-5.1); SGOT/AST 9 U/L (15-37); SGPT/ALT 29 U/L (13-61); SODIUM 136 mmol/L (136-145); TOT PROT 5.9 g/dl (6.4-8.2)
--- NOTE | 2020-03-14 07:45 | PN ---
Progress Note, Physician History of Present Illness: pulmonary alert,remains on 100%nrb,dyspneic,less cough - Current Medication List Current Medications: Active Medications Acetaminophen (Tylenol -) 650 mg PO Q6H PRN PRN Reason: FEVER Albuterol Sulfate (Ventolin Hfa Inhaler -) 1 puff IH Q4H PRN PRN Reason: SHORT OF BREATH/WHEEZING Apixaban (Eliquis -) 5 mg PO BID [facility] Last Admin: 03/13/20 21:35 Dose: 5 mg Documented by: Ascorbic Acid (Vitamin C -) 500 mg PO BID [facility] Last Admin: 03/13/20 21:34 Dose: 500 mg Documented by: Atorvastatin Calcium (Lipitor -) 40 mg PO HS [facility] Last Admin: 03/13/20 21:35 Dose: 40 mg Documented by: Benzocaine/Menthol (Cepacol Lozenge -) 1 each MM Q4H PRN PRN Reason: SORE THROAT Last Admin: 03/08/20 09:57 Dose: 1 each Documented by: Budesonide/Formoterol Fumarate (Symbicort 80/4.5mcg -) 2 puff IH BID [facility] Last Admin: 03/13/20 21:40 Dose: 2 puff Documented by: Cholecalciferol (Vitamin D3 -) 2,000 unit PO DAILY [facility] Last Admin: 03/13/20 09:57 Dose: 2,000 unit Documented by: Clotrimazole (Lotrimin 1% Cream -) 1 applic TP BID [facility] Last Admin: 03/13/20 21:38 Dose: Not Given Documented by: Dexamethasone Sodium Phosphate (Decadron Injection -) 4 mg IVPUSH Q12H [facility] Last Admin: 03/13/20 21:35 Dose: 4 mg Documented by: Guaifenesin/Codeine Phosphate (Robitussin Ac -) 10 ml PO Q4H [facility] Last Admin: 03/14/20 06:20 Dose: Not Given Documented by: Insulin Aspart (Novolog Vial Sliding Scale -) 1 vial SQ ACHS [facility]; Protocol Last Admin: 03/14/20 06:24 Dose: 12 units Documented by: Insulin Aspart (Novolog) 10 units SQ TIDAC [facility] Last Admin: 03/14/20 06:23 Dose: 10 units Documented by: Insulin Detemir (Levemir Vial) 30 units SQ ACBK [facility] Last Admin: 03/14/20 06:23 Dose: 30 units Documented by: Insulin Detemir (Levemir Vial) 25 units SQ HS [facility] Last Admin: 03/13/20 21:36 Dose: 25 units Documented by: Melatonin (Melatonin) 5 mg PO HS PRN PRN Reason: INSOMNIA Last Admin: 03/03/20 21:41 Dose: 5 mg Documented by: Pantoprazole Sodium (Protonix -) 40 mg PO DAILY [facility] Last Admin: 03/13/20 09:57 Dose: 40 mg Documented by: Zinc Sulfate (Orazinc -) 220 mg PO BID [facility] Last Admin: 03/13/20 21:40 Dose: 220 mg Documented by: - Objective Vital Signs: Vital Signs Temperature 98.5 F 03/14/20 01:00 Pulse Rate 67 03/14/20 01:00 Respiratory Rate 20 03/14/20 01:00 Blood Pressure 103/53 L 03/14/20 01:00 O2 Sat by Pulse Oximetry (%) 100 03/14/20 01:10 Constitutional: Yes: Calm, Obese Eyes: Yes: WNL HENT: Yes: WNL Neck: Yes: WNL Cardiovascular: Yes: Regular Rate and Rhythm, S1, S2 Respiratory: Yes: Diminished Gastrointestinal: Yes: Normal Bowel Sounds, Soft Extremities: Yes: WNL Edema: No Labs: CBC, BMP 03/14/20 06:00 INR, PTT INR 1.00 (0.83-1.09) 01/25/20 16:29 Fibrinogen 468.0 mg/dL (238-498) 02/25/20 13:05 Problem List - Problems (1) Acute hypoxemic respiratory failure Code(s): J96.01 - ACUTE RESPIRATORY FAILURE WITH HYPOXIA (2) COVID-19 Code(s): U07.1 - COVID POSITIVE (3) HTN (hypertension) Code(s): I10 - ESSENTIAL (PRIMARY) HYPERTENSION (4) REYNALDO (obstructive sleep apnea) Code(s): G47.33 - OBSTRUCTIVE SLEEP APNEA (ADULT) (PEDIATRIC) (5) Obesity Code(s): E66.9 - OBESITY, UNSPECIFIED Assessment/Plan A/P Acute Hypoxic Respiratory Failure COVID Pneumonia Interstitial/alveolar infiltrates s/p Covid ARDS HTN DM Anemia - Decadron taper - s/p remdesivir course - s/p tocilizumab infusion - s/p convalescent plasma transfusion - cough suppressants - anticoagulation - completed empiric antibiotics - O2 to keep SpO2 >90% - NIPPV at night & PRN - Wt loss - patient will require home Oxygen therapy with portability upon discharge with Oximizer pendant. Due to Chronic Respiratory Failure and advancement of Obstructive and Restrictive lung Disease with lack of gas exchange the patient requires ventilation via a non-invasive ventilator as BiPAP is no longer effective in treatment to effectively decrease work of breathing and to improve pulmonary status and prevent interruption or failure of respiratory support. DR MCKEON
[2020-03-14] MEDS: CHOLECALCIFEROL (VIT D3) 1,000 UNIT (25 MCG) TABLET PO SCH (10:04)
[2020-03-14] MEDS: DEXAMETHASONE SOD PHOSPHATE 4 MG/1 ML VIAL IVPUSH SCH (10:04)
[2020-03-14] MEDS: ASCORBIC ACID 500 MG TABLET (FP) PO SCH ×2 (10:04→21:46)
[2020-03-14] MEDS: PANTOPRAZOLE 40 MG TABLET PO SCH (10:04)
[2020-03-14] MEDS: APIXABAN 5 MG TABLET PO SCH ×2 (10:05→21:42)
[2020-03-14] MEDS: ZINC SULFATE 220 MG CAPSULE (FP) PO SCH ×2 (10:05→21:46)
[2020-03-14] MEDS: BUDESONIDE/FORMETEROL FUMARATE 80/4.5 mcg INHALER IH SCH ×2 (10:05→21:46)
[2020-03-14] MEDS: CLOTRIMAZOLE 1% CREAM 15 GM TUBE TP SCH ×2 (10:11→21:45)
--- NOTE | 2020-03-14 10:59 | PN ---
Physical Exam: SUBJECTIVE: Patient seen and examined. Pt failed his oxygen respirator per pulm yesterday will continue to try daily. Denies coughing, cp, sob, abd pain, n/v/d. OBJECTIVE: Vital Signs Period Temp Pulse Resp BP Sys/Miner Pulse Ox Last 24 Hr 97.5 F-98.5 F 67-95 20-20 103-129/53-69 98-100 GENERAL: The patient is awake, alert, and fully oriented, in no acute distress. LUNGS: Breath sounds reduced with poor air entry b/l HEART: Regular rate and rhythm, S1, S2 without murmur, rub or gallop. ABDOMEN: Soft, nontender, nondistended. EXTREMITIES: 2+ pulses, warm, well-perfused, no edema. Laboratory Results - last 24 hr 03/13/20 03/13/20 03/13/20 11:27 16:23 21:34 WBC RBC Hgb Hct MCV MCH MCHC RDW Plt Count MPV Absolute Neuts (auto) Neutrophils % Lymphocytes % Monocytes % Eosinophils % Basophils % Nucleated RBC % D-Dimer Sodium Potassium Chloride Carbon Dioxide Anion Gap BUN Creatinine Est GFR (CKD-EPI)AfAm Est GFR (CKD-EPI)NonAf POC Glucometer 237 256 378 Random Glucose Calcium Phosphorus Magnesium Ferritin Total Bilirubin AST ALT Alkaline Phosphatase LD Total C-Reactive Protein Total Protein Albumin 03/14/20 03/14/20 03/14/20 06:00 06:00 06:00 WBC 12.7 H RBC 4.12 Hgb 9.9 L Hct 32.1 L MCV 77.9 L MCH 24.0 L MCHC 30.8 L RDW 17.5 H Plt Count 313 MPV 8.9 Absolute Neuts (auto) 8.3 H Neutrophils % 65.9 Lymphocytes % 26.8 D Monocytes % 6.8 Eosinophils % 0.2 Basophils % 0.3 Nucleated RBC % 0 D-Dimer 310 Sodium 136 Potassium 4.3 Chloride 98 Carbon Dioxide 32 Anion Gap 6 L BUN 19.4 H Creatinine 0.9 Est GFR (CKD-EPI)AfAm 127.80 Est GFR (CKD-EPI)NonAf 110.27 POC Glucometer Random Glucose 316 H Calcium 8.6 Phosphorus 3.7 Magnesium 2.2 Ferritin 514.4 H Total Bilirubin 0.4 AST 9 L ALT 29 Alkaline Phosphatase 150 H LD Total 428 H C-Reactive Protein < 0.3 Total Protein 5.9 L Albumin 2.8 L 03/14/20 06:16 WBC RBC Hgb Hct MCV MCH MCHC RDW Plt Count MPV Absolute Neuts (auto) Neutrophils % Lymphocytes % Monocytes % Eosinophils % Basophils % Nucleated RBC % D-Dimer Sodium Potassium Chloride Carbon Dioxide Anion Gap BUN Creatinine Est GFR (CKD-EPI)AfAm Est GFR (CKD-EPI)NonAf POC Glucometer 319 Random Glucose Calcium Phosphorus Magnesium Ferritin Total Bilirubin AST ALT Alkaline Phosphatase LD Total C-Reactive Protein Total Protein Albumin Active Medications Generic Name Dose Route Start Last Admin Trade Name Freq PRN Reason Stop Dose Admin Acetaminophen 650 mg 03/01/20 15:34 Tylenol - PO Q6H PRN FEVER Albuterol Sulfate 1 puff 03/01/20 15:34 Ventolin Hfa Inhaler - IH Q4H PRN SHORT OF BREATH/WHEEZING Apixaban 5 mg 03/01/20 22:00 03/14/20 10:05 Eliquis - PO 5 mg BID SARAH Administration Ascorbic Acid 500 mg 03/01/20 22:00 03/14/20 10:04 Vitamin C - PO 500 mg BID SARAH Administration Atorvastatin Calcium 40 mg 03/01/20 22:00 03/13/20 21:35 Lipitor - PO 40 mg HS SARAH Administration Benzocaine/Menthol 1 each 03/01/20 10:20 03/08/20 09:57 Cepacol Lozenge - MM 1 each Q4H PRN Administration SORE THROAT Budesonide/Formoterol Fumarate 2 puff 03/01/20 22:00 03/14/20 10:05 Symbicort 80/4.5mcg - IH 2 puff BID SARAH Administration Cholecalciferol 2,000 unit 03/02/20 10:00 03/14/20 10:04 Vitamin D3 - PO 2,000 unit DAILY [facility]AH Administration Clotrimazole 1 applic 03/01/20 22:00 03/14/20 10:11 Lotrimin 1% Cream - TP Not Given BID [facility] Dexamethasone Sodium Phosphate 4 mg 03/13/20 20:00 03/14/20 10:04 Decadron Injection - IVPUSH 4 mg Q12H SARAH Administration Guaifenesin/Codeine Phosphate 10 ml 03/02/20 12:15 03/14/20 10:04 Robitussin Ac - PO 10 ml Q4H SARAH Administration Insulin Aspart 1 vial 03/08/20 16:23 03/14/20 06:24 Novolog Vial Sliding Scale - SQ 12 units ACHS [facility] Administration Protocol Insulin Aspart 10 units 03/09/20 09:12 03/14/20 06:23 Novolog SQ 10 units TIDAC SARAH Administration Insulin Detemir 30 units 03/09/20 07:00 03/14/20 06:23 Levemir Vial SQ 30 units ACBK SARAH Administration Insulin Detemir 25 units 03/08/20 22:00 03/13/20 21:36 Levemir Vial SQ 25 units HS [facility] Administration Melatonin 5 mg 03/01/20 22:00 03/03/20 21:41 Melatonin PO 5 mg HS PRN Administration INSOMNIA Pantoprazole Sodium 40 mg 03/04/20 10:00 03/14/20 10:04 Protonix - PO 40 mg DAILY [facility] Administration Zinc Sulfate 220 mg 03/01/20 22:00 03/14/20 10:05 Orazinc - PO 220 mg BID [facility]AH Administration ASSESSMENT/PLAN: 34M with HTN (no home meds) and newly diagnosed DM on this admission. He was admitted 01/24 after he presented with 3-4 days of increasing dyspnea and diarrhea after testing positive for COVID. #COVID 19 Pneumonia - Completed abx, remdesivir course, tocilizumab infusion, convalescent plasma transfusion - Was on Venti 50 yesterday, desatted with exertion, placed back on NRB - Pulm: NRB, Astral device pending delivery - CXR (03/10): No interval change, bi-basilar opacities - CTA (03/10): No PE, inc Rt Pulm artery pressyre, enlarged mediastinal lymph node - Decadron 4 mg BID PO started - Eliquis 5mg BID - Vitamin C, Vitamin D, Zinc - COVID (02/27) NEG # Atypical Chest Pain - Resolved, likely 2/2 excessive coughing, Robitussin Q4H - ACS ruled out: TNI neg x2; EKG showed NSR, no acute ischemic changes - Echo when stable/able to lie flat as per cardio - Plan for ECHO and MIBI when feasible with outpatient Cardio F/U with Dr. Rossi #Newly diagnosed DM - HbA1c 10.5, POC glucose in late 200s-300s - Levemir 30+25, Novolog 10TIDAC, Nov ISS - WILL REDUCE INSULIN WHEN DECADRON IS STOPPED # Headache - Fioricet Q6H #Hx of HTN - Started on Losartan here, holding for now due to low BP #Newly diagnosed HLD - Chol 204, LDL 122, HDL 62 - Lipitor 40 HS started #FEN - DM diet #Prophylaxis - On Eliquis 5 mg BID - Started Protonix 40mg #Dispo - Pending Astral device Visit type - Emergency Visit Emergency Visit: Yes ED Registration Date: 01/25/20 Care time: The patient presented to the Emergency Department on the above date and was hospitalized for further evaluation of their emergent condition. - New Patient This patient is new to me today: No - Critical Care Critical Care patient: No - Discharge Referral Referred to [facility] Med [facility].C.: No ATTENDING PHYSICIAN STATEMENT I saw and evaluated the patient. I reviewed the resident's note and discussed the case with the resident. I agree with the resident's findings and plan as documented. SUBJECTIVE: OBJECTIVE: ASSESSMENT AND PLAN:
[2020-03-14] MEDS ORDERED: INSULIN (NOVOLOG) ASPART 100 UNITS/ML 10ML VIAL ONE (12:12)
--- NOTE | 2020-03-14 14:30 | PN ---
Teaching Attending Note Name of Resident: Mynor Curry ATTENDING PHYSICIAN STATEMENT I saw and evaluated the patient. I reviewed the resident's note and discussed the case with the resident. I agree with the resident's findings and plan as documented. SUBJECTIVE: Feeling comfortable on NRB with BiPAP overnight. Ongoing cough. OBJECTIVE: Afebrile, Hemodynamically stable. SpO2 100% on 15L NRB Last Vital Signs Temp Pulse Resp BP Pulse Ox 98.5 F 85 20 126/76 100 03/14/20 01:00 03/14/20 10:00 03/14/20 10:00 03/14/20 10:03/14/20 10:00 Heart - S1, S2, RRR Lungs - decreased air entry at bases with few crackles Abdomen - high BMI. Soft, non-tender. Bowel Sounds normal. Extremities - mild edema, no calf tenderness. Neuro - AAO x 3. Tone/Power normal all extremities. Laboratory Results - last 24 hr 03/13/20 03/13/20 03/14/20 16:23 21:34 06:00 WBC RBC Hgb Hct MCV MCH MCHC RDW Plt Count MPV Absolute Neuts (auto) Neutrophils % Lymphocytes % Monocytes % Eosinophils % Basophils % Nucleated RBC % D-Dimer Sodium 136 Potassium 4.3 Chloride 98 Carbon Dioxide 32 Anion Gap 6 L BUN 19.4 H Creatinine 0.9 Est GFR (CKD-EPI)AfAm 127.80 Est GFR (CKD-EPI)NonAf 110.27 POC Glucometer 256 378 Random Glucose 316 H Calcium 8.6 Phosphorus 3.7 Magnesium 2.2 Ferritin 514.4 H Total Bilirubin 0.4 AST 9 L ALT 29 Alkaline Phosphatase 150 H LD Total 428 H C-Reactive Protein < 0.3 Total Protein 5.9 L Albumin 2.8 L 03/14/20 03/14/20 03/14/20 06:00 06:00 06:16 WBC 12.7 H RBC 4.12 Hgb 9.9 L Hct 32.1 L MCV 77.9 L MCH 24.0 L MCHC 30.8 L RDW 17.5 H Plt Count 313 MPV 8.9 Absolute Neuts (auto) 8.3 H Neutrophils % 65.9 Lymphocytes % 26.8 D Monocytes % 6.8 Eosinophils % 0.2 Basophils % 0.3 Nucleated RBC % 0 D-Dimer 310 Sodium Potassium Chloride Carbon Dioxide Anion Gap BUN Creatinine Est GFR (CKD-EPI)AfAm Est GFR (CKD-EPI)NonAf POC Glucometer 319 Random Glucose Calcium Phosphorus Magnesium Ferritin Total Bilirubin AST ALT Alkaline Phosphatase LD Total C-Reactive Protein Total Protein Albumin 03/14/20 12:03 WBC RBC Hgb Hct MCV MCH MCHC RDW Plt Count MPV Absolute Neuts (auto) Neutrophils % Lymphocytes % Monocytes % Eosinophils % Basophils % Nucleated RBC % D-Dimer Sodium Potassium Chloride Carbon Dioxide Anion Gap BUN Creatinine Est GFR (CKD-EPI)AfAm Est GFR (CKD-EPI)NonAf POC Glucometer 164 Random Glucose Calcium Phosphorus Magnesium Ferritin Total Bilirubin AST ALT Alkaline Phosphatase LD Total C-Reactive Protein Total Protein Albumin Current Medications Generic Name Dose Route Start Last Admin Trade Name Freq PRN Reason Stop Dose Admin Acetaminophen 650 mg 03/01/20 15:34 Tylenol - PO Q6H PRN FEVER Albuterol Sulfate 1 puff 03/01/20 15:34 Ventolin Hfa Inhaler - IH Q4H PRN SHORT OF BREATH/WHEEZING Apixaban 5 mg 03/01/20 22:00 03/14/20 10:05 Eliquis - PO 5 mg BID SARAH Administration Ascorbic Acid 500 mg 03/01/20 22:00 03/14/20 10:04 Vitamin C - PO 500 mg BID SARAH Administration Atorvastatin Calcium 40 mg 03/01/20 22:00 03/13/20 21:35 Lipitor - PO 40 mg HS SARAH Administration Benzocaine/Menthol 1 each 03/01/20 10:20 03/08/20 09:57 Cepacol Lozenge - MM 1 each Q4H PRN Administration SORE THROAT Budesonide/Formoterol Fumarate 2 puff 03/01/20 22:00 03/14/20 10:05 Symbicort 80/4.5mcg - IH 2 puff BID SARAH Administration Cholecalciferol 2,000 unit 03/02/20 10:00 03/14/20 10:04 Vitamin D3 - PO 2,000 unit DAILY SARAH Administration Clotrimazole 1 applic 03/01/20 22:00 03/14/20 10:11 Lotrimin 1% Cream - TP Not Given BID SARAH Dexamethasone 4 mg 03/14/20 22:00 Decadron - PO BID SARAH Guaifenesin/Codeine Phosphate 10 ml 03/02/20 12:15 03/14/20 12:25 Robitussin Ac - PO 10 ml Q4H SARAH Administration Insulin Aspart 1 vial 03/08/20 16:23 03/14/20 12:26 Novolog Vial Sliding Scale - SQ Not Given ACHS [facility] Protocol Insulin Aspart 10 units 03/09/20 09:12 03/14/20 12:23 Novolog SQ 10 units TIDAC SARAH Administration Insulin Detemir 30 units 03/09/20 07:00 03/14/20 06:23 Levemir Vial SQ 30 units ACBK SARAH Administration Insulin Detemir 25 units 03/08/20 22:00 03/13/20 21:36 Levemir Vial SQ 25 units HS SARAH Administration Melatonin 5 mg 03/01/20 22:00 03/03/20 21:41 Melatonin PO 5 mg HS PRN Administration INSOMNIA Pantoprazole Sodium 40 mg 03/04/20 10:00 03/14/20 10:04 Protonix - PO 40 mg DAILY SARAH Administration Zinc Sulfate 220 mg 03/01/20 22:00 03/14/20 10:05 Orazinc - PO 220 mg BID SARAH Administration Home Medications Medication Instructions Recorded NK [No Known Home Medication] 03/02/20 ASSESSMENT AND PLAN: 34 year old male with history of Obesity, HTN (not on medication), presented 01/24 with a 3-4 day history of increasing dyspnea and diarrhea after testing positive for COVID. He was newly diagnosed as having DM 2 on this admission, and currently remains dependent on NRB and BiPAP to maintain adequate oxygenation. CT Chest - bilateral infiltrates, mediastinal LN - for 3 month follow up. 1. 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 DDIMER improving - Continue Eliquis 5mg BID Vitamin C, Vitamin D, Zinc Repeat COVID negative NIPPV at night & PRN Awaiting Astral NIV device with Home O2/Oximizer pendant Taper Decadron - switched to PO Further recommendations as per Pulm, possible Lung transplant candidate in the future. 2. DM 2 - newly diagnosed A1c 10.5 Currently on Levemir 30/25 and Novolog ac Hyperglycemic episodes compounded by Steroids. 3. Iron deficiency anemia s/p IV iron 100mg x3 days No evidence of acute blood loss. Further investigation as out-patient. 4. Atypical CP - resolved. Echo - poor quality, appears normal. Stress MIBI when stable as per Cardio. 5. HLD - started on Statin. 6. Mediastinal LN on CT Chest - likely reactive, for 3 month follow up DVT Px on Eliquis GI PX - PPI.
--- NOTE | 2020-03-14 14:55 | PN ---
Progress Note, Physician History of Present Illness: 34yo male with recent COVID positive test presents to the ED with shortness of breath and extreme fatigue. Recently on azithromycin course without relief. Saturating at 98% on room air, placed on 2L nasal cannula upon arrival with symptomatic relief. Patient has been progressively short of breath since diagnosis. - Current Medication List Current Medications: Active Medications Acetaminophen (Tylenol -) 650 mg PO Q6H PRN PRN Reason: FEVER Albuterol Sulfate (Ventolin Hfa Inhaler -) 1 puff IH Q4H PRN PRN Reason: SHORT OF BREATH/WHEEZING Apixaban (Eliquis -) 5 mg PO BID [facility] Last Admin: 03/14/20 10:05 Dose: 5 mg Documented by: Ascorbic Acid (Vitamin C -) 500 mg PO BID [facility] Last Admin: 03/14/20 10:04 Dose: 500 mg Documented by: Atorvastatin Calcium (Lipitor -) 40 mg PO HS [facility] Last Admin: 03/13/20 21:35 Dose: 40 mg Documented by: Benzocaine/Menthol (Cepacol Lozenge -) 1 each MM Q4H PRN PRN Reason: SORE THROAT Last Admin: 03/08/20 09:57 Dose: 1 each Documented by: Budesonide/Formoterol Fumarate (Symbicort 80/4.5mcg -) 2 puff IH BID [facility] Last Admin: 03/14/20 10:05 Dose: 2 puff Documented by: Cholecalciferol (Vitamin D3 -) 2,000 unit PO DAILY [facility] Last Admin: 03/14/20 10:04 Dose: 2,000 unit Documented by: Clotrimazole (Lotrimin 1% Cream -) 1 applic TP BID [facility] Last Admin: 03/14/20 10:11 Dose: Not Given Documented by: Dexamethasone (Decadron -) 4 mg PO BID [facility] Guaifenesin/Codeine Phosphate (Robitussin Ac -) 10 ml PO Q4H [facility] Last Admin: 03/14/20 12:25 Dose: 10 ml Documented by: Insulin Aspart (Novolog Vial Sliding Scale -) 1 vial SQ ACHS [facility]; Protocol Last Admin: 03/14/20 12:26 Dose: Not Given Documented by: Insulin Aspart (Novolog) 10 units SQ TIDAC [facility] Last Admin: 03/14/20 12:23 Dose: 10 units Documented by: Insulin Detemir (Levemir Vial) 30 units SQ ACBK [facility] Last Admin: 03/14/20 06:23 Dose: 30 units Documented by: Insulin Detemir (Levemir Vial) 25 units SQ HS [facility] Last Admin: 03/13/20 21:36 Dose: 25 units Documented by: Melatonin (Melatonin) 5 mg PO HS PRN PRN Reason: INSOMNIA Last Admin: 03/03/20 21:41 Dose: 5 mg Documented by: Pantoprazole Sodium (Protonix -) 40 mg PO DAILY [facility] Last Admin: 03/14/20 10:04 Dose: 40 mg Documented by: Zinc Sulfate (Orazinc -) 220 mg PO BID [facility] Last Admin: 03/14/20 10:05 Dose: 220 mg Documented by: - Objective Vital Signs: Vital Signs Temperature 97.5 F L 03/14/20 14:00 Pulse Rate 74 03/14/20 14:00 Respiratory Rate 22 H 03/14/20 14:00 Blood Pressure 140/89 03/14/20 14:00 O2 Sat by Pulse Oximetry (%) 100 03/14/20 10:00 Eyes: Yes: WNL, Conjunctiva Clear, EOM Intact HENT: Yes: WNL, Atraumatic, Normocephalic Neck: Yes: WNL, Supple, Trachea Midline Cardiovascular: Yes: WNL, Regular Rate and Rhythm Respiratory: Yes: Diminished Gastrointestinal: Yes: WNL, Normal Bowel Sounds Genitourinary: Yes: WNL Musculoskeletal: Yes: WNL Extremities: Yes: WNL Edema: No Integumentary: Yes: WNL Neurological: Yes: WNL, Alert, Oriented ...Motor Strength: WNL Psychiatric: Yes: WNL Labs: CBC, BMP 03/14/20 06:00 03/14/20 06:00 INR, PTT INR 1.00 (0.83-1.09) 01/25/20 16:29 Fibrinogen 468.0 mg/dL (238-498) 02/25/20 13:05 Problem List - Problems (1) Acute hypoxemic respiratory failure Code(s): J96.01 - ACUTE RESPIRATORY FAILURE WITH HYPOXIA (2) COVID-19 Code(s): U07.1 - COVID POSITIVE (3) HTN (hypertension) Code(s): I10 - ESSENTIAL (PRIMARY) HYPERTENSION (4) REYNALDO (obstructive sleep apnea) Code(s): G47.33 - OBSTRUCTIVE SLEEP APNEA (ADULT) (PEDIATRIC) (5) Obesity Code(s): E66.9 - OBESITY, UNSPECIFIED (6) Bronchitis Code(s): J40 - BRONCHITIS, NOT SPECIFIED ACUTE OR CHRONIC (7) Cough Code(s): R05 - COUGH Assessment/Plan COVID pneumonia ARDS Hyperlipidemia DM Morbid Obesity Atypical chest pain Plan: COVID not detected (02/28/20) Continue bronchodilators, O2, steroids, and 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 TNI < 0.02 x 2 EKG:NSR; no acute changes LDL cholesterol 122 mg/dL; keep < 70 mg;dL with statin, diet change. On apixaban for anticoagulation. BUN/Cr, electrolytes, daily weight, Is and Os. ECHO: suboptimal study; normal LVEF; could not comment on RV or RA; suggest repeat test when pt better able to tolerate it (e.g. be positioned for better visual windows). Now on losartan (HTN; diastolic dysfunction; DM). Plan on stress MIBI, due to multiple CAD risks, when stable.
[2020-03-14] MEDS: DEXAMETHASONE 4 MG TABLET (FP) PO SCH (21:42)
[2020-03-14] MEDS: ATORVASTATIN CA 40 MG TABLET (FP) PO SCH (21:44)
[2020-03-14] MEDS ORDERED: DEXAMETHASONE 4 MG TABLET (FP) PO SCH (22:00)
[2020-03-15] MEDS: guaiFENesin/CODEINE 10 ML UNIT-DOSE CUPS PO SCH ×6 (00:12→22:07)
[2020-03-15 06:32] LABS: BASO % 0.2 % (0-2.0); EOS % 0.4 % (0-4.5); HEMATOCRIT 32.5 % (35.4-49); HEMOGLOBIN 9.9 GM/dL (11.7-16.9); LYMPH % 21.9 % (8-40); MCH 24.2 pg (25.7-33.7); MCHC 30.6 g/dl (32.0-35.9); MEAN PLT VOLUME 9.1 fl (7.5-11.1); MONO % 7.2 % (3.8-10.2); NEUT % 70.3 % (42.8-82.8); PLATELET COUNT 304 K/MM3 (134-434); RBC 4.11 M/mm3 (4.00-5.60); RDW 17.8 % (11.9-15.9); WHITE BLOOD COUNT 13.7 K/mm3 (4.0-10.0)
[2020-03-15 06:42] LABS: BILIRUBIN,TOTAL 0.4 mg/dL (0.2-1); BLOOD UREA NITROGEN 29.3 mg/dL (7-18); CALCIUM 9.1 mg/dL (8.5-10.1); CREATININE 1.2 mg/dL (0.55-1.3); POTASSIUM 4.6 mmol/L (3.5-5.1); TOT PROT 6.1 g/dl (6.4-8.2)
[2020-03-15] MEDS: INSULIN (LEVEMIR) 100 UNITS/ML UNITS SQ SCH ×2 (06:55→22:10)
[2020-03-15] MEDS: Insulin (LOG) Aspart 100 UNITS/ML VIAL SQ SCH ×3 (06:57→17:44)
[2020-03-15] MEDS: INSULIN SLIDING SCALE (NOVOLOG) 1 VIAL SQ SCH ×4 (06:57→22:11)
--- NOTE | 2020-03-15 07:54 | PN ---
Progress Note, Physician History of Present Illness: PULMONARY ALERT,NO CHANGE DYSPNEOC ON 70% NRB - Current Medication List Current Medications: Active Medications Acetaminophen (Tylenol -) 650 mg PO Q6H PRN PRN Reason: FEVER Albuterol Sulfate (Ventolin Hfa Inhaler -) 1 puff IH Q4H PRN PRN Reason: SHORT OF BREATH/WHEEZING Apixaban (Eliquis -) 5 mg PO BID [facility] Last Admin: 03/14/20 21:42 Dose: 5 mg Documented by: Ascorbic Acid (Vitamin C -) 500 mg PO BID [facility] Last Admin: 03/14/20 21:46 Dose: 500 mg Documented by: Atorvastatin Calcium (Lipitor -) 40 mg PO HS [facility] Last Admin: 03/14/20 21:44 Dose: 40 mg Documented by: Benzocaine/Menthol (Cepacol Lozenge -) 1 each MM Q4H PRN PRN Reason: SORE THROAT Last Admin: 03/08/20 09:57 Dose: 1 each Documented by: Budesonide/Formoterol Fumarate (Symbicort 80/4.5mcg -) 2 puff IH BID [facility] Last Admin: 03/14/20 21:46 Dose: 2 puff Documented by: Cholecalciferol (Vitamin D3 -) 2,000 unit PO DAILY [facility] Last Admin: 03/14/20 10:04 Dose: 2,000 unit Documented by: Clotrimazole (Lotrimin 1% Cream -) 1 applic TP BID [facility] Last Admin: 03/14/20 21:45 Dose: Not Given Documented by: Dexamethasone (Decadron -) 4 mg PO BID [facility] Last Admin: 03/14/20 21:42 Dose: 4 mg Documented by: Guaifenesin/Codeine Phosphate (Robitussin Ac -) 10 ml PO Q4H [facility] Last Admin: 03/15/20 04:34 Dose: 10 ml Documented by: Insulin Aspart (Novolog Vial Sliding Scale -) 1 vial SQ ACHS [facility]; Protocol Last Admin: 03/15/20 06:57 Dose: 9 units Documented by: Insulin Aspart (Novolog) 10 units SQ TIDAC [facility] Last Admin: 03/15/20 06:57 Dose: 10 units Documented by: Insulin Detemir (Levemir Vial) 30 units SQ ACBK [facility] Last Admin: 03/15/20 06:55 Dose: 30 units Documented by: Insulin Detemir (Levemir Vial) 25 units SQ HS [facility] Last Admin: 03/14/20 21:42 Dose: 25 units Documented by: Melatonin (Melatonin) 5 mg PO HS PRN PRN Reason: INSOMNIA Last Admin: 03/03/20 21:41 Dose: 5 mg Documented by: Pantoprazole Sodium (Protonix -) 40 mg PO DAILY [facility] Last Admin: 03/14/20 10:04 Dose: 40 mg Documented by: Zinc Sulfate (Orazinc -) 220 mg PO BID [facility] Last Admin: 03/14/20 21:46 Dose: 220 mg Documented by: - Objective Vital Signs: Vital Signs Temperature 97.7 F 03/14/20 22:00 Pulse Rate 80 03/14/20 22:00 Respiratory Rate 24 H 03/14/20 22:00 Blood Pressure 113/73 03/14/20 22:00 O2 Sat by Pulse Oximetry (%) 100 03/15/20 04:56 Constitutional: Yes: Calm, Obese Eyes: Yes: WNL HENT: Yes: WNL Neck: Yes: WNL Cardiovascular: Yes: Regular Rate and Rhythm, S1, S2 Respiratory: Yes: Diminished Gastrointestinal: Yes: Normal Bowel Sounds, Soft Extremities: Yes: WNL Edema: No Labs: CBC, BMP 03/15/20 05:18 03/15/20 05:18 INR, PTT INR 1.00 (0.83-1.09) 01/25/20 16:29 Fibrinogen 468.0 mg/dL (238-498) 02/25/20 13:05 Problem List - Problems (1) Acute hypoxemic respiratory failure Code(s): J96.01 - ACUTE RESPIRATORY FAILURE WITH HYPOXIA (2) COVID-19 Code(s): U07.1 - COVID POSITIVE (3) HTN (hypertension) Code(s): I10 - ESSENTIAL (PRIMARY) HYPERTENSION (4) REYNALDO (obstructive sleep apnea) Code(s): G47.33 - OBSTRUCTIVE SLEEP APNEA (ADULT) (PEDIATRIC) (5) Obesity Code(s): E66.9 - OBESITY, UNSPECIFIED Assessment/Plan A/P Acute Hypoxic Respiratory Failure COVID Pneumonia Interstitial/alveolar infiltrates s/p Covid ARDS HTN DM Anemia - Decadron taper - s/p remdesivir course - s/p tocilizumab infusion - s/p convalescent plasma transfusion - cough suppressants - anticoagulation - completed empiric antibiotics - O2 to keep SpO2 >90% - NIPPV at night & PRN - Wt loss - patient will require home Oxygen therapy with portability upon discharge with Oximizer pendant. Due to Chronic Respiratory Failure and advancement of Obstructive and Restrictive lung Disease with lack of gas exchange the patient requires ventilation via a non-invasive ventilator as BiPAP is no longer effective in treatment to effectively decrease work of breathing and to improve pulmonary status and prevent interruption or failure of respiratory support. DR MCKEON
[2020-03-15 08:30] LABS: ANISOCYTOSIS 1+; MACROCYTOSIS 0; PLATELET ESTIMATE NORMAL
[2020-03-15] MEDS: CHOLECALCIFEROL (VIT D3) 1,000 UNIT (25 MCG) TABLET PO SCH (10:31)
[2020-03-15] MEDS: APIXABAN 5 MG TABLET PO SCH ×2 (10:31→22:07)
[2020-03-15] MEDS: PANTOPRAZOLE 40 MG TABLET PO SCH (10:32)
[2020-03-15] MEDS: DEXAMETHASONE 4 MG TABLET (FP) PO SCH ×2 (10:32→22:08)
[2020-03-15] MEDS: ASCORBIC ACID 500 MG TABLET (FP) PO SCH ×2 (10:32→22:08)
[2020-03-15] MEDS: ZINC SULFATE 220 MG CAPSULE (FP) PO SCH ×2 (10:32→22:08)
[2020-03-15] MEDS: BUDESONIDE/FORMETEROL FUMARATE 80/4.5 mcg INHALER IH SCH ×2 (10:34→22:08)
[2020-03-15] MEDS: CLOTRIMAZOLE 1% CREAM 15 GM TUBE TP SCH ×2 (10:36→22:08)
--- NOTE | 2020-03-15 12:30 | PN ---
Teaching Attending Note Name of Resident: Mynor Curry ATTENDING PHYSICIAN STATEMENT I saw and evaluated the patient. I reviewed the resident's note and discussed the case with the resident. I agree with the resident's findings and plan as documented. SUBJECTIVE: Feeling comfortable on NRB with BiPAP overnight. Ongoing cough and SOB when off O2 or on exertion. OBJECTIVE: Afebrile, Hemodynamically stable. SpO2 98-100% on 15L NRB Last Vital Signs Temp Pulse Resp BP Pulse Ox 97.7 F 84 24 H 113/73 98 03/14/20 22:00 03/15/20 08:04 03/14/20 22:00 03/14/20 22:00 03/15/20 08:04 Heart - S1, S2, RRR Lungs - decreased air entry at bases with few crackles Abdomen - high BMI. Soft, non-tender. Bowel Sounds normal. Extremities - mild edema, no calf tenderness. Neuro - AAO x 3. Tone/Power normal all extremities. Laboratory Results - last 24 hr 03/14/20 03/14/20 03/15/20 17:15 21:35 05:18 WBC Corrected WBC (auto) RBC Hgb Hct MCV MCH MCHC RDW Plt Count MPV Absolute Neuts (auto) Neutrophils % Neutrophils % (Manual) Band Neutrophils % Lymphocytes % Lymphocytes % (Manual) Monocytes % Monocytes % (Manual) Eosinophils % Eosinophils % (Manual) Basophils % Basophils % (Manual) Myelocytes % (Man) Promyelocytes % (Man) Blast Cells % (Manual) Nucleated RBC % Metamyelocytes Hypochromia Platelet Estimate Polychromasia Poikilocytosis Anisocytosis Microcytosis Macrocytosis Sodium 137 Potassium 4.6 Chloride 99 Carbon Dioxide 31 Anion Gap 7 L BUN 29.3 H Creatinine 1.2 Est GFR (CKD-EPI)AfAm 90.26 Est GFR (CKD-EPI)NonAf 77.87 POC Glucometer 339 208 Random Glucose 320 H Calcium 9.1 Phosphorus 4.0 Total Bilirubin 0.4 AST 9 L ALT 34 Alkaline Phosphatase 155 H Total Protein 6.1 L Albumin 3.0 L 03/15/20 03/15/20 03/15/20 05:18 06:49 11:59 WBC 13.7 H Corrected WBC (auto) 13.70 RBC 4.11 Hgb 9.9 L Hct 32.5 L MCV 79.0 L MCH 24.2 L MCHC 30.6 L RDW 17.8 H Plt Count 304 MPV 9.1 Absolute Neuts (auto) 9.6 H Neutrophils % 70.3 Neutrophils % (Manual) 67.0 Band Neutrophils % 0.0 Lymphocytes % 21.9 Lymphocytes % (Manual) 21.7 D Monocytes % 7.2 Monocytes % (Manual) 10 Eosinophils % 0.4 D Eosinophils % (Manual) 0.0 Basophils % 0.2 Basophils % (Manual) 0.0 Myelocytes % (Man) 0 D Promyelocytes % (Man) 0 Blast Cells % (Manual) 0 Nucleated RBC % 0 Metamyelocytes 0 D Hypochromia 0 Platelet Estimate Normal Polychromasia 1+ Poikilocytosis 0 Anisocytosis 1+ Microcytosis 1+ Macrocytosis 0 Sodium Potassium Chloride Carbon Dioxide Anion Gap BUN Creatinine Est GFR (CKD-EPI)AfAm Est GFR (CKD-EPI)NonAf POC Glucometer 297 153 Random Glucose Calcium Phosphorus Total Bilirubin AST ALT Alkaline Phosphatase Total Protein Albumin Current Medications Generic Name Dose Route Start Last Admin Trade Name Freq PRN Reason Stop Dose Admin Acetaminophen 650 mg 03/01/20 15:34 Tylenol - PO Q6H PRN FEVER Albuterol Sulfate 1 puff 03/01/20 15:34 Ventolin Hfa Inhaler - IH Q4H PRN SHORT OF BREATH/WHEEZING Apixaban 5 mg 03/01/20 22:00 03/15/20 10:31 Eliquis - PO 5 mg BID SARAH Administration Ascorbic Acid 500 mg 03/01/20 22:00 03/15/20 10:32 Vitamin C - PO 500 mg BID SARAH Administration Atorvastatin Calcium 40 mg 03/01/20 22:00 03/14/20 21:44 Lipitor - PO 40 mg HS SARAH Administration Benzocaine/Menthol 1 each 03/01/20 10:20 03/08/20 09:57 Cepacol Lozenge - MM 1 each Q4H PRN Administration SORE THROAT Budesonide/Formoterol Fumarate 2 puff 03/01/20 22:00 03/15/20 10:34 Symbicort 80/4.5mcg - IH 2 puff BID SARAH Administration Cholecalciferol 2,000 unit 03/02/20 10:00 03/15/20 10:31 Vitamin D3 - PO 2,000 unit DAILY SARAH Administration Clotrimazole 1 applic 03/01/20 22:00 03/15/20 10:36 Lotrimin 1% Cream - TP Not Given BID SARAH Dexamethasone 4 mg 03/14/20 22:00 03/15/20 10:32 Decadron - PO 4 mg BID SARAH Administration Guaifenesin/Codeine Phosphate 10 ml 03/02/20 12:15 03/15/20 12:04 Robitussin Ac - PO 10 ml Q4H SARAH Administration Insulin Aspart 1 vial 03/08/20 16:23 03/15/20 12:01 Novolog Vial Sliding Scale - SQ 3 units ACHS SARAH Administration Protocol Insulin Aspart 10 units 03/09/20 09:12 03/15/20 12:01 Novolog SQ 10 units TIDAC SARAH Administration Insulin Detemir 30 units 03/09/20 07:00 03/15/20 06:55 Levemir Vial SQ 30 units ACBK SARAH Administration Insulin Detemir 25 units 03/08/20 22:00 03/14/20 21:42 Levemir Vial SQ 25 units HS [facility]AH Administration Melatonin 5 mg 03/01/20 22:00 03/03/20 21:41 Melatonin PO 5 mg HS PRN Administration INSOMNIA Pantoprazole Sodium 40 mg 03/04/20 10:00 03/15/20 10:32 Protonix - PO 40 mg DAILY [facility]AH Administration Zinc Sulfate 220 mg 03/01/20 22:00 03/15/20 10:32 Orazinc - PO 220 mg BID SARAH Administration Home Medications Medication Instructions Recorded NK [No Known Home Medication] 03/02/20 ASSESSMENT AND PLAN: 34 year old male with history of Obesity, HTN (not on medication), presented 01/24 with a 3-4 day history of increasing dyspnea and diarrhea after testing positive for COVID. He was newly diagnosed as having DM 2 on this admission, and currently remains dependent on NRB and BiPAP to maintain adequate oxygenation. CT Chest - bilateral infiltrates, mediastinal LN - for 3 month follow up. 1. 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 DDIMER improving - Continue Eliquis 5mg BID Vitamin C, Vitamin D, Zinc Repeat COVID negative NIPPV at night & PRN Awaiting Astral NIV device with Home O2/Oximizer pendant Decadron - switched to PO - taper as per Pulm Further recommendations as per Pulm, possible Lung transplant candidate in the future. 2. DM 2 - newly diagnosed A1c 10.5 Currently on Levemir 30/25 and Novolog ac Hyperglycemic episodes compounded by Steroids. 3. Iron deficiency anemia s/p IV iron 100mg x3 days No evidence of acute blood loss. Further investigation as out-patient. 4. Atypical CP - resolved. Echo - poor quality, appears normal. Stress MIBI when stable as per Cardio. 5. HLD - started on Statin. 6. Mediastinal LN on CT Chest - likely reactive, for 3 month follow up DVT Px on Eliquis GI PX - PPI.
--- NOTE | 2020-03-15 16:11 | PN ---
Physical Exam: SUBJECTIVE: Patient seen and examined. No acute events noted, no cp, abd pain, lower ext swelling, bowel/bladder complaints, n/v/f/c. OBJECTIVE: Vital Signs Period Temp Pulse Resp BP Sys/Miner Pulse Ox Last 24 Hr 97.7 F-98.4 F 72-84 18-24 113-114/73-80 98-100 GENERAL: The patient is awake, alert, and fully oriented, in no acute distress. LUNGS: Breath sounds reduced with poor air entry b/l HEART: Regular rate and rhythm, S1, S2 without murmur, rub or gallop. ABDOMEN: Soft, nontender, nondistended. EXTREMITIES: 2+ pulses, warm, well-perfused, no edema. Laboratory Results - last 24 hr 03/14/20 03/14/20 03/15/20 17:15 21:35 05:18 WBC Corrected WBC (auto) RBC Hgb Hct MCV MCH MCHC RDW Plt Count MPV Absolute Neuts (auto) Neutrophils % Neutrophils % (Manual) Band Neutrophils % Lymphocytes % Lymphocytes % (Manual) Monocytes % Monocytes % (Manual) Eosinophils % Eosinophils % (Manual) Basophils % Basophils % (Manual) Myelocytes % (Man) Promyelocytes % (Man) Blast Cells % (Manual) Nucleated RBC % Metamyelocytes Hypochromia Platelet Estimate Polychromasia Poikilocytosis Anisocytosis Microcytosis Macrocytosis Sodium 137 Potassium 4.6 Chloride 99 Carbon Dioxide 31 Anion Gap 7 L BUN 29.3 H Creatinine 1.2 Est GFR (CKD-EPI)AfAm 90.26 Est GFR (CKD-EPI)NonAf 77.87 POC Glucometer 339 208 Random Glucose 320 H Calcium 9.1 Phosphorus 4.0 Total Bilirubin 0.4 AST 9 L ALT 34 Alkaline Phosphatase 155 H Total Protein 6.1 L Albumin 3.0 L 03/15/20 03/15/20 03/15/20 05:18 06:49 11:59 WBC 13.7 H Corrected WBC (auto) 13.70 RBC 4.11 Hgb 9.9 L Hct 32.5 L MCV 79.0 L MCH 24.2 L MCHC 30.6 L RDW 17.8 H Plt Count 304 MPV 9.1 Absolute Neuts (auto) 9.6 H Neutrophils % 70.3 Neutrophils % (Manual) 67.0 Band Neutrophils % 0.0 Lymphocytes % 21.9 Lymphocytes % (Manual) 21.7 D Monocytes % 7.2 Monocytes % (Manual) 10 Eosinophils % 0.4 D Eosinophils % (Manual) 0.0 Basophils % 0.2 Basophils % (Manual) 0.0 Myelocytes % (Man) 0 D Promyelocytes % (Man) 0 Blast Cells % (Manual) 0 Nucleated RBC % 0 Metamyelocytes 0 D Hypochromia 0 Platelet Estimate Normal Polychromasia 1+ Poikilocytosis 0 Anisocytosis 1+ Microcytosis 1+ Macrocytosis 0 Sodium Potassium Chloride Carbon Dioxide Anion Gap BUN Creatinine Est GFR (CKD-EPI)AfAm Est GFR (CKD-EPI)NonAf POC Glucometer 297 153 Random Glucose Calcium Phosphorus Total Bilirubin AST ALT Alkaline Phosphatase Total Protein Albumin Active Medications Generic Name Dose Route Start Last Admin Trade Name Freq PRN Reason Stop Dose Admin Acetaminophen 650 mg 03/01/20 15:34 Tylenol - PO Q6H PRN FEVER Albuterol Sulfate 1 puff 03/01/20 15:34 Ventolin Hfa Inhaler - IH Q4H PRN SHORT OF BREATH/WHEEZING Apixaban 5 mg 03/01/20 22:00 03/15/20 10:31 Eliquis - PO 5 mg BID SARAH Administration Ascorbic Acid 500 mg 03/01/20 22:00 03/15/20 10:32 Vitamin C - PO 500 mg BID SARAH Administration Atorvastatin Calcium 40 mg 03/01/20 22:00 03/14/20 21:44 Lipitor - PO 40 mg HS SARAH Administration Benzocaine/Menthol 1 each 03/01/20 10:20 03/08/20 09:57 Cepacol Lozenge - MM 1 each Q4H PRN Administration SORE THROAT Budesonide/Formoterol Fumarate 2 puff 03/01/20 22:00 03/15/20 10:34 Symbicort 80/4.5mcg - IH 2 puff BID SARAH Administration Cholecalciferol 2,000 unit 03/02/20 10:00 03/15/20 10:31 Vitamin D3 - PO 2,000 unit DAILY SARAH Administration Clotrimazole 1 applic 03/01/20 22:00 03/15/20 10:36 Lotrimin 1% Cream - TP Not Given BID SARAH Dexamethasone 4 mg 03/14/20 22:00 03/15/20 10:32 Decadron - PO 4 mg BID SARAH Administration Guaifenesin/Codeine Phosphate 10 ml 03/02/20 12:15 03/15/20 12:04 Robitussin Ac - PO 10 ml Q4H SARAH Administration Insulin Aspart 1 vial 03/08/20 16:23 03/15/20 12:01 Novolog Vial Sliding Scale - SQ 3 units ACHS SARAH Administration Protocol Insulin Aspart 10 units 03/09/20 09:12 03/15/20 12:01 Novolog SQ 10 units TIDAC SARAH Administration Insulin Detemir 30 units 03/09/20 07:00 03/15/20 06:55 Levemir Vial SQ 30 units ACBK SARAH Administration Insulin Detemir 25 units 03/08/20 22:00 03/14/20 21:42 Levemir Vial SQ 25 units HS SARAH Administration Melatonin 5 mg 03/01/20 22:00 03/03/20 21:41 Melatonin PO 5 mg HS PRN Administration INSOMNIA Pantoprazole Sodium 40 mg 03/04/20 10:00 03/15/20 10:32 Protonix - PO 40 mg DAILY SARAH Administration Zinc Sulfate 220 mg 03/01/20 22:00 03/15/20 10:32 Orazinc - PO 220 mg BID SARAH Administration ASSESSMENT/PLAN: 34M with HTN (no home meds) and newly diagnosed DM on this admission. He was admitted 01/24 after he presented with 3-4 days of increasing dyspnea and diarrhea after testing positive for COVID. #COVID 19 Pneumonia - Completed abx, remdesivir course, tocilizumab infusion, convalescent plasma transfusion - Was on Venti 50 yesterday, desatted with exertion, placed back on NRB - Pulm: NRB, Astral device pending delivery - CXR (03/10): No interval change, bi-basilar opacities - CTA (03/10): No PE, inc Rt Pulm artery pressure, enlarged mediastinal lymph node - Decadron 4 mg BID PO - Eliquis 5mg BID - Vitamin C, Vitamin D, Zinc - COVID (02/27) NEG # Atypical Chest Pain - Resolved, likely 2/2 excessive coughing, Robitussin Q4H - ACS ruled out: TNI neg x2; EKG showed NSR, no acute ischemic changes - Echo when stable/able to lie flat as per cardio - Plan for ECHO and MIBI when feasible with outpatient Cardio F/U with Dr. Rossi #Newly diagnosed DM - HbA1c 10.5, POC glucose in late 200s-300s - Levemir 30+25, Novolog 10TIDAC, Nov ISS - WILL REDUCE INSULIN WHEN DECADRON IS STOPPED # Headache - Fioricet Q6H - pt hasn't had any headaches #Hx of HTN - Started on Losartan here, holding for now due to low BP #Newly diagnosed HLD - Chol 204, LDL 122, HDL 62 - Lipitor 40 HS #FEN - DM diet #Prophylaxis - On Eliquis 5 mg BID - Started Protonix 40mg #Dispo - Pending Astral device (noninvasive portable device) Visit type - Emergency Visit Emergency Visit: Yes ED Registration Date: 01/25/20 Care time: The patient presented to the Emergency Department on the above date and was hospitalized for further evaluation of their emergent condition. - New Patient This patient is new to me today: No - Critical Care Critical Care patient: No - Discharge Referral Referred to [facility] Med P.C.: No ATTENDING PHYSICIAN STATEMENT I saw and evaluated the patient. I reviewed the resident's note and discussed the case with the resident. I agree with the resident's findings and plan as documented. SUBJECTIVE: OBJECTIVE: ASSESSMENT AND PLAN:
[2020-03-15] MEDS: ATORVASTATIN CA 40 MG TABLET (FP) PO SCH (22:07)
[2020-03-16] MEDS: guaiFENesin/CODEINE 10 ML UNIT-DOSE CUPS PO SCH ×4 (01:24→08:58)
[2020-03-16] MEDS: INSULIN (LEVEMIR) 100 UNITS/ML UNITS SQ SCH ×2 (06:27→21:39)
[2020-03-16] MEDS: INSULIN SLIDING SCALE (NOVOLOG) 1 VIAL SQ SCH ×4 (06:29→21:51)
[2020-03-16] MEDS: Insulin (LOG) Aspart 100 UNITS/ML VIAL SQ SCH ×3 (06:31→17:10)
--- NOTE | 2020-03-16 07:39 | PN ---
Progress Note, Physician Chief Complaint: Pt A&Ox3;sitting up at beside;dyspneic with minimal exertion. History of Present Illness: 34yo black man with morbid obesity, DM, hyperlipidemia, ?sleep apnea, recent COVID positive test, presents to the ED with shortness of breath and extreme fatigue. Recently on azithromycin course without relief. Saturating at 98% on room air, placed on 2L nasal cannula upon arrival with symptomatic relief. Patient has been progressively short of breath since diagnosis. Called because pt c/o strong, sharp left breast pain that began today at rest, lasted about an hour. Pt says he had had a similar pain, though less severe and of shorter duration while in the ICU. Pt denies personal or family hx of heart disease; his father has DM. Pt never smoked; does not drink to excess. 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 - Current Medication List Current Medications: Active Medications Acetaminophen (Tylenol -) 650 mg PO Q6H PRN PRN Reason: FEVER Albuterol Sulfate (Ventolin Hfa Inhaler -) 1 puff IH Q4H PRN PRN Reason: SHORT OF BREATH/WHEEZING Apixaban (Eliquis -) 5 mg PO BID [facility] Last Admin: 03/15/20 22:07 Dose: 5 mg Documented by: Ascorbic Acid (Vitamin C -) 500 mg PO BID [facility] Last Admin: 03/15/20 22:08 Dose: 500 mg Documented by: Atorvastatin Calcium (Lipitor -) 40 mg PO HS [facility] Last Admin: 03/15/20 22:07 Dose: 40 mg Documented by: Benzocaine/Menthol (Cepacol Lozenge -) 1 each MM Q4H PRN PRN Reason: SORE THROAT Last Admin: 03/08/20 09:57 Dose: 1 each Documented by: Budesonide/Formoterol Fumarate (Symbicort 80/4.5mcg -) 2 puff IH BID [facility] Last Admin: 03/15/20 22:08 Dose: 2 puff Documented by: Cholecalciferol (Vitamin D3 -) 2,000 unit PO DAILY [facility] Last Admin: 03/15/20 10:31 Dose: 2,000 unit Documented by: Clotrimazole (Lotrimin 1% Cream -) 1 applic TP BID [facility] Last Admin: 03/15/20 22:08 Dose: Not Given Documented by: Dexamethasone (Decadron -) 4 mg PO BID [facility] Last Admin: 03/15/20 22:08 Dose: 4 mg Documented by: Guaifenesin/Codeine Phosphate (Robitussin Ac -) 10 ml PO Q4H [facility] Last Admin: 03/16/20 04:31 Dose: Not Given Documented by: Insulin Aspart (Novolog Vial Sliding Scale -) 1 vial SQ ACHS [facility]; Protocol Last Admin: 03/16/20 06:29 Dose: 9 units Documented by: Insulin Aspart (Novolog) 10 units SQ TIDAC [facility] Last Admin: 03/16/20 06:31 Dose: 10 units Documented by: Insulin Detemir (Levemir Vial) 30 units SQ ACBK [facility] Last Admin: 03/16/20 06:27 Dose: 30 units Documented by: Insulin Detemir (Levemir Vial) 25 units SQ HS [facility] Last Admin: 03/15/20 22:10 Dose: 25 units Documented by: Melatonin (Melatonin) 5 mg PO HS PRN PRN Reason: INSOMNIA Last Admin: 03/03/20 21:41 Dose: 5 mg Documented by: Pantoprazole Sodium (Protonix -) 40 mg PO DAILY [facility] Last Admin: 03/15/20 10:32 Dose: 40 mg Documented by: Zinc Sulfate (Orazinc -) 220 mg PO BID [facility] Last Admin: 03/15/20 22:08 Dose: 220 mg Documented by: - Objective Vital Signs: Vital Signs Temperature 98.4 F 03/16/20 01:00 Pulse Rate 83 03/16/20 01:00 Respiratory Rate 21 H 03/16/20 01:00 Blood Pressure 116/68 03/16/20 01:00 O2 Sat by Pulse Oximetry (%) 100 03/16/20 04:30 Constitutional: Yes: Calm, Obese Eyes: Yes: WNL HENT: Yes: WNL Neck: Yes: WNL Cardiovascular: Yes: S1, S2 Respiratory: Yes: Diminished, On BiPap Gastrointestinal: Yes: Soft, Abdomen, Obese ...Rectal Exam: Yes: Deferred Genitourinary: No: Anuria Musculoskeletal: Yes: Joint Stiffness, Muscle Weakness Extremities: Yes: WNL Edema: No Peripheral Pulses WNL: Yes Integumentary: Yes: WNL Neurological: Yes: WNL Psychiatric: Yes: Alert, Oriented, Other (anxiety/?depression) Labs: INR, PTT INR 1.00 (0.83-1.09) 01/25/20 16:29 Fibrinogen 468.0 mg/dL (238-498) 02/25/20 13:05 - ....Imaging Chest X-ray: Image Reviewed EKG: Image Reviewed Assessment/Plan COVID pneumonia ARDS Hyperlipidemia DM Morbid Obesity Atypical chest pain Plan: COVID not detected (02/28/20) Continue bronchodilators, O2, steroids, and antibiotics per manuscript reader (awaits home O2 unit). TNI < 0.02 x 2 EKG:NSR; no acute changes LDL cholesterol 122 mg/dL; keep < 70 mg;dL with statin, diet change. On apixaban for anticoagulation. BUN/Cr, electrolytes, daily weight, Is and Os. ECHO: suboptimal study; normal LVEF; could not comment on RV or RA; suggest repeat test when pt better able to tolerate it (e.g. be positioned for better visual windows). Now on losartan (HTN; diastolic dysfunction; DM). Plan on stress MIBI, due to multiple CAD risks, when stable. Given pt's frail respiratory state, this may need to be deferred until a later date.
[2020-03-16 07:45] LABS: BASO % 0.1 % (0-2.0); EOS % 0.3 % (0-4.5); HEMATOCRIT 32.1 % (35.4-49); HEMOGLOBIN 9.9 GM/dL (11.7-16.9); LYMPH % 24.9 % (8-40); MCHC 30.7 g/dl (32.0-35.9); MEAN CELL VOLUME 78.2 fl (80-96); MEAN PLT VOLUME 9.1 fl (7.5-11.1); MONO % 6.1 % (3.8-10.2); NEUT % 68.6 % (42.8-82.8); PLATELET COUNT 309 K/MM3 (134-434); RBC 4.11 M/mm3 (4.00-5.60); RDW 17.9 % (11.9-15.9)
[2020-03-16 07:51] LABS: ALBUMIN 2.9 g/dl (3.4-5.0); BLOOD UREA NITROGEN 21.8 mg/dL (7-18); CALCIUM 8.6 mg/dL (8.5-10.1); CREATININE 0.9 mg/dL (0.55-1.3); POTASSIUM 4.2 mmol/L (3.5-5.1)
[2020-03-16 07:53] LABS: BILIRUBIN,TOTAL 0.4 mg/dL (0.2-1); TOT PROT 5.8 g/dl (6.4-8.2)
--- NOTE | 2020-03-16 07:54 | PN ---
Progress Note, Physician History of Present Illness: 34yo male with recent COVID positive test presents to the ED with shortness of breath and extreme fatigue. Recently on azithromycin course without relief. Saturating at 98% on room air, placed on 2L nasal cannula upon arrival with symptomatic relief. Patient has been progressively short of breath since diagnosis. - Current Medication List Current Medications: Active Medications Acetaminophen (Tylenol -) 650 mg PO Q6H PRN PRN Reason: FEVER Albuterol Sulfate (Ventolin Hfa Inhaler -) 1 puff IH Q4H PRN PRN Reason: SHORT OF BREATH/WHEEZING Apixaban (Eliquis -) 5 mg PO BID [facility] Last Admin: 03/15/20 22:07 Dose: 5 mg Documented by: Ascorbic Acid (Vitamin C -) 500 mg PO BID [facility] Last Admin: 03/15/20 22:08 Dose: 500 mg Documented by: Atorvastatin Calcium (Lipitor -) 40 mg PO HS [facility] Last Admin: 03/15/20 22:07 Dose: 40 mg Documented by: Benzocaine/Menthol (Cepacol Lozenge -) 1 each MM Q4H PRN PRN Reason: SORE THROAT Last Admin: 03/08/20 09:57 Dose: 1 each Documented by: Budesonide/Formoterol Fumarate (Symbicort 80/4.5mcg -) 2 puff IH BID [facility] Last Admin: 03/15/20 22:08 Dose: 2 puff Documented by: Cholecalciferol (Vitamin D3 -) 2,000 unit PO DAILY [facility] Last Admin: 03/15/20 10:31 Dose: 2,000 unit Documented by: Clotrimazole (Lotrimin 1% Cream -) 1 applic TP BID [facility] Last Admin: 03/15/20 22:08 Dose: Not Given Documented by: Dexamethasone (Decadron -) 4 mg PO BID [facility] Last Admin: 03/15/20 22:08 Dose: 4 mg Documented by: Guaifenesin/Codeine Phosphate (Robitussin Ac -) 10 ml PO Q4H [facility] Last Admin: 03/16/20 04:31 Dose: Not Given Documented by: Insulin Aspart (Novolog Vial Sliding Scale -) 1 vial SQ ACHS [facility]; Protocol Last Admin: 03/16/20 06:29 Dose: 9 units Documented by: Insulin Aspart (Novolog) 10 units SQ TIDAC [facility] Last Admin: 03/16/20 06:31 Dose: 10 units Documented by: Insulin Detemir (Levemir Vial) 30 units SQ ACBK [facility] Last Admin: 03/16/20 06:27 Dose: 30 units Documented by: Insulin Detemir (Levemir Vial) 25 units SQ HS [facility] Last Admin: 03/15/20 22:10 Dose: 25 units Documented by: Melatonin (Melatonin) 5 mg PO HS PRN PRN Reason: INSOMNIA Last Admin: 03/03/20 21:41 Dose: 5 mg Documented by: Pantoprazole Sodium (Protonix -) 40 mg PO DAILY [facility] Last Admin: 03/15/20 10:32 Dose: 40 mg Documented by: Zinc Sulfate (Orazinc -) 220 mg PO BID [facility] Last Admin: 03/15/20 22:08 Dose: 220 mg Documented by: - Objective Vital Signs: Vital Signs Temperature 98.4 F 03/16/20 01:00 Pulse Rate 83 03/16/20 01:00 Respiratory Rate 21 H 03/16/20 01:00 Blood Pressure 116/68 03/16/20 01:00 O2 Sat by Pulse Oximetry (%) 100 03/16/20 07:47 Eyes: Yes: WNL, Conjunctiva Clear, EOM Intact HENT: Yes: WNL, Atraumatic, Normocephalic Neck: Yes: WNL, Supple, Trachea Midline Cardiovascular: Yes: WNL, Regular Rate and Rhythm Respiratory: Yes: Diminished Gastrointestinal: Yes: WNL, Normal Bowel Sounds Genitourinary: Yes: WNL Musculoskeletal: Yes: WNL Extremities: Yes: WNL Edema: No Integumentary: Yes: WNL Neurological: Yes: WNL, Alert, Oriented ...Motor Strength: WNL Psychiatric: Yes: WNL Labs: CBC, BMP 03/16/20 06:20 INR, PTT INR 1.00 (0.83-1.09) 01/25/20 16:29 Fibrinogen 468.0 mg/dL (238-498) 02/25/20 13:05 Problem List - Problems (1) Acute hypoxemic respiratory failure Code(s): J96.01 - ACUTE RESPIRATORY FAILURE WITH HYPOXIA (2) COVID-19 Code(s): U07.1 - COVID POSITIVE (3) HTN (hypertension) Code(s): I10 - ESSENTIAL (PRIMARY) HYPERTENSION (4) REYNALDO (obstructive sleep apnea) Code(s): G47.33 - OBSTRUCTIVE SLEEP APNEA (ADULT) (PEDIATRIC) (5) Obesity Code(s): E66.9 - OBESITY, UNSPECIFIED (6) Bronchitis Code(s): J40 - BRONCHITIS, NOT SPECIFIED ACUTE OR CHRONIC (7) Cough Code(s): R05 - COUGH Assessment/Plan s/p COVID pneumonia ARDS Hyperlipidemia DM Morbid Obesity Atypical chest pain Plan: COVID not detected (02/28/20) Continue bronchodilators, O2, steroids, and antibiotics per game producer (awaits home O2 unit). TNI < 0.02 x 2 EKG:NSR; no acute changes LDL cholesterol 122 mg/dL; keep < 70 mg;dL with statin, diet change. On apixaban for anticoagulation. BUN/Cr, electrolytes, daily weight, Is and Os. ECHO: suboptimal study; normal LVEF; could not comment on RV or RA; suggest repeat test when pt better able to tolerate it (e.g. be positioned for better visual windows). Now on losartan (HTN; diastolic dysfunction; DM). Plan on stress MIBI, due to multiple CAD risks, when stable. Given pt's frail state, this may need to be deferred until a later date.
--- NOTE | 2020-03-16 08:10 | PN ---
Physical Exam: SUBJECTIVE: Pt failed the trial of portable non-invasive ventilation yesterday. OBJECTIVE: Vital Signs Period Temp Pulse Resp BP Sys/Miner Pulse Ox Last 24 Hr 98.4 F-99 F 72-105 18-24 108-116/68-80 95-100 PE as per attending note: Heart - S1, S2, RRR Lungs - decreased air entry at bases with few crackles Abdomen - high BMI. Soft, non-tender. Bowel Sounds normal. Extremities - mild edema, no calf tenderness. Neuro - AAO x 3. Tone/Power normal all extremities. Laboratory Results - last 24 hr 03/15/20 03/15/20 03/15/20 05:18 11:59 17:42 Corrected WBC (auto) 13.70 Neutrophils % (Manual) 67.0 Band Neutrophils % 0.0 Lymphocytes % (Manual) 21.7 D Monocytes % (Manual) 10 Eosinophils % (Manual) 0.0 Basophils % (Manual) 0.0 Myelocytes % (Man) 0 D Promyelocytes % (Man) 0 Blast Cells % (Manual) 0 Nucleated RBC % 0 Metamyelocytes 0 D Hypochromia 0 Platelet Estimate Normal Polychromasia 1+ Poikilocytosis 0 Anisocytosis 1+ Microcytosis 1+ Macrocytosis 0 Sodium Potassium Chloride Carbon Dioxide Anion Gap BUN Creatinine Est GFR (CKD-EPI)AfAm Est GFR (CKD-EPI)NonAf POC Glucometer 153 337 Random Glucose Calcium Total Bilirubin AST ALT Alkaline Phosphatase Total Protein Albumin 03/15/20 03/16/20 03/16/20 22:03 06:20 06:25 Corrected WBC (auto) Neutrophils % (Manual) Band Neutrophils % Lymphocytes % (Manual) Monocytes % (Manual) Eosinophils % (Manual) Basophils % (Manual) Myelocytes % (Man) Promyelocytes % (Man) Blast Cells % (Manual) Nucleated RBC % Metamyelocytes Hypochromia Platelet Estimate Polychromasia Poikilocytosis Anisocytosis Microcytosis Macrocytosis Sodium 138 Potassium 4.2 Chloride 101 Carbon Dioxide 32 Anion Gap 5 L BUN 21.8 H Creatinine 0.9 Est GFR (CKD-EPI)AfAm 127.80 Est GFR (CKD-EPI)NonAf 110.27 POC Glucometer 241 268 Random Glucose 272 H Calcium 8.6 Total Bilirubin 0.4 AST 11 L ALT 31 Alkaline Phosphatase 139 H Total Protein 5.8 L Albumin 2.9 L Active Medications Generic Name Dose Route Start Last Admin Trade Name Freq PRN Reason Stop Dose Admin Acetaminophen 650 mg 03/01/20 15:34 Tylenol - PO Q6H PRN FEVER Albuterol Sulfate 1 puff 03/01/20 15:34 Ventolin Hfa Inhaler - IH Q4H PRN SHORT OF BREATH/WHEEZING Apixaban 5 mg 03/01/20 22:00 03/15/20 22:07 Eliquis - PO 5 mg BID SARAH Administration Ascorbic Acid 500 mg 03/01/20 22:00 03/15/20 22:08 Vitamin C - PO 500 mg BID SARAH Administration Atorvastatin Calcium 40 mg 03/01/20 22:00 03/15/20 22:07 Lipitor - PO 40 mg HS [facility] Administration Benzocaine/Menthol 1 each 03/01/20 10:20 03/08/20 09:57 Cepacol Lozenge - MM 1 each Q4H PRN Administration SORE THROAT Budesonide/Formoterol Fumarate 2 puff 03/01/20 22:00 03/15/20 22:08 Symbicort 80/4.5mcg - IH 2 puff BID [facility] Administration Cholecalciferol 2,000 unit 03/02/20 10:00 03/15/20 10:31 Vitamin D3 - PO 2,000 unit DAILY [facility] Administration Clotrimazole 1 applic 03/01/20 22:00 03/15/20 22:08 Lotrimin 1% Cream - TP Not Given BID [facility] Dexamethasone 4 mg 03/14/20 22:00 03/15/20 22:08 Decadron - PO 4 mg BID [facility] Administration Guaifenesin/Codeine Phosphate 10 ml 03/02/20 12:15 03/16/20 07:56 Robitussin Ac - PO Not Given Q4H [facility] Insulin Aspart 1 vial 03/08/20 16:23 03/16/20 06:29 Novolog Vial Sliding Scale - SQ 9 units ACHS [facility] Administration Protocol Insulin Aspart 10 units 03/09/20 09:12 03/16/20 06:31 Novolog SQ 10 units TIDAC [facility] Administration Insulin Detemir 30 units 03/09/20 07:00 03/16/20 06:27 Levemir Vial SQ 30 units ACBK [facility] Administration Insulin Detemir 25 units 03/08/20 22:00 03/15/20 22:10 Levemir Vial SQ 25 units HS SARAH Administration Melatonin 5 mg 03/01/20 22:00 03/03/20 21:41 Melatonin PO 5 mg HS PRN Administration INSOMNIA Pantoprazole Sodium 40 mg 03/04/20 10:00 03/15/20 10:32 Protonix - PO 40 mg DAILY [facility] Administration Zinc Sulfate 220 mg 03/01/20 22:00 03/15/20 22:08 Orazinc - PO 220 mg BID SARAH Administration ASSESSMENT/PLAN: 34M with HTN (no home meds) and newly diagnosed DM on this admission. He was admitted 01/24 after he presented with 3-4 days of increasing dyspnea and diarrhea after testing positive for COVID. #COVID 19 Pneumonia - Completed abx, remdesivir course, tocilizumab infusion, convalescent plasma transfusion - Was on Venti 50 yesterday, desatted with exertion, placed back on NRB - Pulm: NRB, Astral device pending delivery - CXR (03/10): No interval change, bi-basilar opacities - CTA (03/10): No PE, inc Rt Pulm artery pressure, enlarged mediastinal lymph node - Decadron 4 mg BID PO - Eliquis 5mg BID - Vitamin C, Vitamin D, Zinc - COVID (02/27) NEG # Atypical Chest Pain - Resolved, likely 2/2 excessive coughing, Robitussin Q4H - ACS ruled out: TNI neg x2; EKG showed NSR, no acute ischemic changes - Echo when stable/able to lie flat as per cardio - Plan for ECHO and MIBI when feasible with outpatient Cardio F/U with Dr. Rossi #Newly diagnosed DM - HbA1c 10.5, POC glucose in late 200s-300s - Levemir 30+25, Novolog 10TIDAC, Nov ISS - WILL REDUCE INSULIN WHEN DECADRON IS STOPPED # Headache - Fioricet Q6H - pt hasn't had any headaches #Hx of HTN - Started on Losartan here, holding for now due to low BP #Newly diagnosed HLD - Chol 204, LDL 122, HDL 62 - Lipitor 40 HS #FEN - DM diet #Prophylaxis - On Eliquis 5 mg BID - Started Protonix 40mg #Dispo - Pending Astral device (noninvasive portable device) Visit type - Emergency Visit Emergency Visit: Yes ED Registration Date: 01/25/20 Care time: The patient presented to the Emergency Department on the above date and was hospitalized for further evaluation of their emergent condition. - New Patient This patient is new to me today: No - Critical Care Critical Care patient: No - Discharge Referral Referred to [facility] Med [facility].C.: No ATTENDING PHYSICIAN STATEMENT I saw and evaluated the patient. I reviewed the resident's note and discussed the case with the resident. I agree with the resident's findings and plan as documented. SUBJECTIVE: OBJECTIVE: ASSESSMENT AND PLAN:
[2020-03-16] MEDS: ASCORBIC ACID 500 MG TABLET (FP) PO SCH ×2 (09:57→21:39)
[2020-03-16] MEDS: APIXABAN 5 MG TABLET PO SCH ×2 (09:57→21:39)
[2020-03-16] MEDS: CHOLECALCIFEROL (VIT D3) 1,000 UNIT (25 MCG) TABLET PO SCH (09:57)
[2020-03-16] MEDS: PANTOPRAZOLE 40 MG TABLET PO SCH (09:57)
[2020-03-16] MEDS: DEXAMETHASONE 4 MG TABLET (FP) PO SCH ×2 (09:57→21:39)
[2020-03-16] MEDS: CLOTRIMAZOLE 1% CREAM 15 GM TUBE TP SCH ×2 (09:57→21:39)
[2020-03-16] MEDS: ZINC SULFATE 220 MG CAPSULE (FP) PO SCH ×2 (09:58→21:40)
[2020-03-16] MEDS: BUDESONIDE/FORMETEROL FUMARATE 80/4.5 mcg INHALER IH SCH ×2 (09:58→21:40)
[2020-03-16] MEDS ORDERED: INSULIN (NOVOLOG) ASPART 100 UNITS/ML 10ML VIAL ONE (10:29)
--- NOTE | 2020-03-16 11:09 | PN ---
Progress Note (short form) - Note Progress Note: PULMONARY AWAKE/ALERT HAD EPISODE OF SOB/DESAT ON PORTABLE PAP DEVICE VSS/AFEBRILE ANICTERIC DIMINISHED S1S2 OBESE NO EDEMA LABS/MEDS/NOTES/IMAGES REVIEWED A/P Acute Hypoxic Respiratory Failure COVID Pneumonia Interstitial/alveolar infiltrates s/p Covid ARDS HTN DM Anemia - Decadron taper - s/p remdesivir course - s/p tocilizumab infusion - s/p convalescent plasma transfusion - cough suppressants - anticoagulation - completed empiric antibiotics - O2 to keep SpO2 >90% - NIPPV at night & PRN - Wt loss - Covid negative 02/27 Mauro WILD MD -
[2020-03-16 11:51] LABS: ANISOCYTOSIS 1+; MACROCYTOSIS 0; PLATELET ESTIMATE NORMAL; TEAR DROP CELLS 1+
--- NOTE | 2020-03-16 13:36 | PN ---
Teaching Attending Note Name of Resident: Mynro Curry ATTENDING PHYSICIAN STATEMENT I saw and evaluated the patient. I reviewed the resident's note and discussed the case with the resident. I agree with the resident's findings and plan as documented. SUBJECTIVE: Feeling comfortable on NRB with BiPAP overnight. Ongoing cough and SOB when off O2 or on exertion. Desaturated on portable NIV device. OBJECTIVE: Afebrile, Hemodynamically stable. SpO2 98-100% on 70% BiPAP Last Vital Signs Temp Pulse Resp BP Pulse Ox 98 F 88 20 114/76 100 03/16/20 09:00 03/16/20 09:00 03/16/20 09:00 03/16/20 09:00 03/16/20 11:10 Heart - S1, S2, RRR Lungs - decreased air entry at bases with few crackles Abdomen - high BMI. Soft, non-tender. Bowel Sounds normal. Extremities - mild edema, no calf tenderness. Neuro - AAO x 3. Tone/Power normal all extremities. Laboratory Results - last 24 hr 03/15/20 03/15/20 03/16/20 17:42 22:03 : WBC 12.0 H RBC 4.11 Hgb 9.9 L Hct 32.1 L MCV 78.2 L MCH 24.0 L MCHC 30.7 L RDW 17.9 H Plt Count 309 MPV 9.1 Absolute Neuts (auto) 8.2 H Neutrophils % 68.6 Neutrophils % (Manual) 53.7 Band Neutrophils % 0.0 Lymphocytes % 24.9 Lymphocytes % (Manual) 37.9 D Monocytes % 6.1 Monocytes % (Manual) 3 L Eosinophils % 0.3 Eosinophils % (Manual) 0.0 Basophils % 0.1 Basophils % (Manual) 0.0 Myelocytes % (Man) 2 D Promyelocytes % (Man) 0 Blast Cells % (Manual) 0 Nucleated RBC % 0 Metamyelocytes 0 Hypochromia 0 Platelet Estimate Normal Polychromasia 1+ Poikilocytosis 1+ Basophilic Stippling 1+ Anisocytosis 1+ Microcytosis 1+ Macrocytosis 0 Tear Drop Cells 1+ Stomatocytes 1+ Sodium Potassium Chloride Carbon Dioxide Anion Gap BUN Creatinine Est GFR (CKD-EPI)AfAm Est GFR (CKD-EPI)NonAf POC Glucometer 337 241 Random Glucose Calcium Total Bilirubin AST ALT Alkaline Phosphatase Total Protein Albumin 03/16/20 03/16/20 03/16/20 06: 06:25 11:11 WBC RBC Hgb Hct MCV MCH MCHC RDW Plt Count MPV Absolute Neuts (auto) Neutrophils % Neutrophils % (Manual) Band Neutrophils % Lymphocytes % Lymphocytes % (Manual) Monocytes % Monocytes % (Manual) Eosinophils % Eosinophils % (Manual) Basophils % Basophils % (Manual) Myelocytes % (Man) Promyelocytes % (Man) Blast Cells % (Manual) Nucleated RBC % Metamyelocytes Hypochromia Platelet Estimate Polychromasia Poikilocytosis Basophilic Stippling Anisocytosis Microcytosis Macrocytosis Tear Drop Cells Stomatocytes Sodium 138 Potassium 4.2 Chloride 101 Carbon Dioxide 32 Anion Gap 5 L BUN 21.8 H Creatinine 0.9 Est GFR (CKD-EPI)AfAm 127.80 Est GFR (CKD-EPI)NonAf 110.27 POC Glucometer 268 189 Random Glucose 272 H Calcium 8.6 Total Bilirubin 0.4 AST 11 L ALT 31 Alkaline Phosphatase 139 H Total Protein 5.8 L Albumin 2.9 L Current Medications Generic Name Dose Route Start Last Admin Trade Name Freq PRN Reason Stop Dose Admin Acetaminophen 650 mg 03/01/20 15:34 Tylenol - PO Q6H PRN FEVER Albuterol Sulfate 1 puff 03/01/20 15:34 Ventolin Hfa Inhaler - IH Q4H PRN SHORT OF BREATH/WHEEZING Apixaban 5 mg 03/01/20 22:00 03/16/20 09:57 Eliquis - PO 5 mg BID SARAH Administration Ascorbic Acid 500 mg 03/01/20 22:00 03/16/20 09:57 Vitamin C - PO 500 mg BID SARAH Administration Atorvastatin Calcium 40 mg 03/01/20 22:00 03/15/20 22:07 Lipitor - PO 40 mg HS SARAH Administration Benzocaine/Menthol 1 each 03/01/20 10:20 03/08/20 09:57 Cepacol Lozenge - MM 1 each Q4H PRN Administration SORE THROAT Budesonide/Formoterol Fumarate 2 puff 03/01/20 22:00 03/16/20 09:58 Symbicort 80/4.5mcg - IH 2 puff BID SARAH Administration Cholecalciferol 2,000 unit 03/02/20 10:00 03/16/20 09:57 Vitamin D3 - PO 2,000 unit DAILY SARAH Administration Clotrimazole 1 applic 03/01/20 22:00 03/16/20 09:57 Lotrimin 1% Cream - TP Not Given BID SARAH Dexamethasone 4 mg 03/14/20 22:00 03/16/20 09:57 Decadron - PO 4 mg BID SARAH Administration Insulin Aspart 1 vial 03/08/20 16:23 03/16/20 11:13 Novolog Vial Sliding Scale - SQ 3 units ACHS SARAH Administration Protocol Insulin Aspart 10 units 03/09/20 09:12 03/16/20 11:12 Novolog SQ 10 units TIDAC SARAH Administration Insulin Detemir 30 units 03/09/20 07:00 03/16/20 06:27 Levemir Vial SQ 30 units ACBK SARAH Administration Insulin Detemir 25 units 03/08/20 22:00 03/15/20 22:10 Levemir Vial SQ 25 units HS SARAH Administration Melatonin 5 mg 03/01/20 22:00 03/03/20 21:41 Melatonin PO 5 mg HS PRN Administration INSOMNIA Pantoprazole Sodium 40 mg 03/04/20 10:00 03/16/20 09:57 Protonix - PO 40 mg DAILY SARAH Administration Zinc Sulfate 220 mg 03/01/20 22:00 03/16/20 09:58 Orazinc - PO 220 mg BID SARAH Administration Home Medications Medication Instructions Recorded NK [No Known Home Medication] 03/02/20 ASSESSMENT AND PLAN: 34 year old male with history of Obesity, HTN (not on medication), presented 01/24 with a 3-4 day history of increasing dyspnea and diarrhea after testing positive for COVID. He was newly diagnosed as having DM 2 on this admission, and currently remains dependent on NRB and BiPAP to maintain adequate oxygenation. CT Chest - bilateral infiltrates, mediastinal LN - for 3 month follow up. 1. 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 DDIMER improving - Continue Eliquis 5mg BID Vitamin C, Vitamin D, Zinc Repeat COVID negative NIPPV at night & PRN tried Astral NIV device with episode of desaturation yesterday. Decadron - switched to PO - taper as per Pulm Further recommendations as per Pulm, possible Lung transplant candidate in the future. 2. DM 2 - newly diagnosed A1c 10.5 Currently on Levemir 30/25 and Novolog ac Hyperglycemic episodes compounded by Steroids are improving. 3. Iron deficiency anemia s/p IV iron 100mg x3 days No evidence of acute blood loss. Further investigation as out-patient. 4. Atypical CP - resolved. Echo - poor quality, appears normal. Stress MIBI when stable as per Cardio. 5. HLD - started on Statin. 6. Mediastinal LN on CT Chest - likely reactive, recommendation for 3 month follow up DVT Px on Eliquis GI PX - PPI.
[2020-03-16] MEDS: FUROSEMIDE 40 MG TABLET (FP) PO SCH (14:38)
[2020-03-16] MEDS: ATORVASTATIN CA 40 MG TABLET (FP) PO SCH (21:39)
[2020-03-17] MEDS: INSULIN (LEVEMIR) 100 UNITS/ML UNITS SQ SCH ×2 (06:00→22:22)
[2020-03-17] MEDS: INSULIN SLIDING SCALE (NOVOLOG) 1 VIAL SQ SCH ×4 (06:00→22:17)
[2020-03-17] MEDS: Insulin (LOG) Aspart 100 UNITS/ML VIAL SQ SCH ×3 (06:00→16:29)
[2020-03-17] MEDS ORDERED: PT OWN MED DRAWER 7, Y5N ONE ×2 (09:11→21:22)
--- NOTE | 2020-03-17 10:15 | PN ---
Progress Note, Physician History of Present Illness: 34yo male with recent COVID positive test presents to the ED with shortness of breath and extreme fatigue. Recently on azithromycin course without relief. Saturating at 98% on room air, placed on 2L nasal cannula upon arrival with symptomatic relief. Patient has been progressively short of breath since diagnosis. - Current Medication List Current Medications: Active Medications Acetaminophen (Tylenol -) 650 mg PO Q6H PRN PRN Reason: FEVER Albuterol Sulfate (Ventolin Hfa Inhaler -) 1 puff IH Q4H PRN PRN Reason: SHORT OF BREATH/WHEEZING Apixaban (Eliquis -) 5 mg PO BID [facility] Last Admin: 03/16/20 21:39 Dose: 5 mg Documented by: Ascorbic Acid (Vitamin C -) 500 mg PO BID [facility] Last Admin: 03/16/20 21:39 Dose: 500 mg Documented by: Atorvastatin Calcium (Lipitor -) 40 mg PO HS [facility] Last Admin: 03/16/20 21:39 Dose: 40 mg Documented by: Benzocaine/Menthol (Cepacol Lozenge -) 1 each MM Q4H PRN PRN Reason: SORE THROAT Last Admin: 03/08/20 09:57 Dose: 1 each Documented by: Budesonide/Formoterol Fumarate (Symbicort 80/4.5mcg -) 2 puff IH BID [facility] Last Admin: 03/16/20 21:40 Dose: 2 puff Documented by: Cholecalciferol (Vitamin D3 -) 2,000 unit PO DAILY [facility] Last Admin: 03/16/20 09:57 Dose: 2,000 unit Documented by: Clotrimazole (Lotrimin 1% Cream -) 1 applic TP BID [facility] Last Admin: 03/16/20 21:39 Dose: Not Given Documented by: Dexamethasone (Decadron -) 4 mg PO BID [facility] Last Admin: 03/16/20 21:39 Dose: 4 mg Documented by: Insulin Aspart (Novolog Vial Sliding Scale -) 1 vial SQ ACHS [facility]; Protocol Last Admin: 03/17/20 06:00 Dose: 12 units Documented by: Insulin Aspart (Novolog) 10 units SQ TIDAC [facility] Last Admin: 03/17/20 06:00 Dose: 10 units Documented by: Insulin Detemir (Levemir Vial) 30 units SQ ACBK [facility] Last Admin: 03/17/20 06:00 Dose: 30 units Documented by: Insulin Detemir (Levemir Vial) 25 units SQ HS [facility] Last Admin: 03/16/20 21:39 Dose: 25 units Documented by: Melatonin (Melatonin) 5 mg PO HS PRN PRN Reason: INSOMNIA Last Admin: 03/03/20 21:41 Dose: 5 mg Documented by: Pantoprazole Sodium (Protonix -) 40 mg PO DAILY [facility] Last Admin: 03/16/20 09:57 Dose: 40 mg Documented by: Zinc Sulfate (Orazinc -) 220 mg PO BID [facility] Last Admin: 03/16/20 21:40 Dose: 220 mg Documented by: - Objective Vital Signs: Vital Signs Temperature 98.3 F 03/17/20 06:17 Pulse Rate 110 H 03/17/20 09:00 Respiratory Rate 03/17/20 08:39 Blood Pressure 101/57 L 03/17/20 06:17 O2 Sat by Pulse Oximetry (%) 93 L 03/17/20 09:00 Eyes: Yes: WNL, Conjunctiva Clear, EOM Intact HENT: Yes: WNL, Atraumatic, Normocephalic Neck: Yes: WNL, Supple, Trachea Midline Cardiovascular: Yes: WNL, Regular Rate and Rhythm Respiratory: Yes: WNL, Regular, CTA Bilaterally Gastrointestinal: Yes: WNL, Normal Bowel Sounds Genitourinary: Yes: WNL Musculoskeletal: Yes: WNL Extremities: Yes: WNL Edema: No Integumentary: Yes: WNL Neurological: Yes: WNL, Alert, Oriented ...Motor Strength: WNL Psychiatric: Yes: WNL Labs: CBC, BMP 03/16/20 06:20 03/16/20 06:20 INR, PTT INR 1.00 (0.83-1.09) 01/25/20 16:29 Fibrinogen 468.0 mg/dL (238-498) 02/25/20 13:05 Problem List - Problems (1) Acute hypoxemic respiratory failure Code(s): J96.01 - ACUTE RESPIRATORY FAILURE WITH HYPOXIA (2) COVID-19 Code(s): U07.1 - COVID POSITIVE (3) HTN (hypertension) Code(s): I10 - ESSENTIAL (PRIMARY) HYPERTENSION (4) REYNALDO (obstructive sleep apnea) Code(s): G47.33 - OBSTRUCTIVE SLEEP APNEA (ADULT) (PEDIATRIC) (5) Obesity Code(s): E66.9 - OBESITY, UNSPECIFIED (6) Bronchitis Code(s): J40 - BRONCHITIS, NOT SPECIFIED ACUTE OR CHRONIC (7) Cough Code(s): R05 - COUGH Assessment/Plan s/p COVID pneumonia ARDS Hyperlipidemia DM Morbid Obesity Atypical chest pain Plan: COVID not detected (02/28/20) Continue bronchodilators, O2, steroids, and antibiotics per validation architect (awaits home O2 unit). TNI < 0.02 x 2 EKG:NSR; no acute changes LDL cholesterol 122 mg/dL; keep < 70 mg;dL with statin, diet change. On apixaban for anticoagulation. BUN/Cr, electrolytes, daily weight, Is and Os. ECHO: suboptimal study; normal LVEF; could not comment on RV or RA; suggest repeat test when pt better able to tolerate it (e.g. be positioned for better visual windows). Now on losartan (HTN; diastolic dysfunction; DM). Plan on stress MIBI, due to multiple CAD risks, when stable. Given pt's frail state, this may need to be deferred until a later date.
[2020-03-17] MEDS: FUROSEMIDE 40 MG TABLET (FP) PO SCH (11:03)
[2020-03-17] MEDS: DEXAMETHASONE 4 MG TABLET (FP) PO SCH ×2 (11:03→22:21)
[2020-03-17] MEDS: PANTOPRAZOLE 40 MG TABLET PO SCH (11:03)
[2020-03-17] MEDS: APIXABAN 5 MG TABLET PO SCH ×2 (11:04→22:22)
[2020-03-17] MEDS: ASCORBIC ACID 500 MG TABLET (FP) PO SCH ×2 (11:04→22:22)
[2020-03-17] MEDS: CLOTRIMAZOLE 1% CREAM 15 GM TUBE TP SCH ×2 (11:04→22:22)
[2020-03-17] MEDS: CHOLECALCIFEROL (VIT D3) 1,000 UNIT (25 MCG) TABLET PO SCH (11:04)
[2020-03-17] MEDS: ZINC SULFATE 220 MG CAPSULE (FP) PO SCH ×2 (11:04→22:22)
[2020-03-17] MEDS: BUDESONIDE/FORMETEROL FUMARATE 80/4.5 mcg INHALER IH SCH ×2 (11:05→22:22)
--- NOTE | 2020-03-17 11:19 | PN ---
Physical Exam: SUBJECTIVE: Patient seen and examined at bedside this morning. Endorses shortness of breath and desaturation when attempting to ambulate using Astral device. OBJECTIVE: Vital Signs Period Temp Pulse Resp BP Sys/Miner Pulse Ox Last 24 Hr 98 F-98.3 F 68-110 20-20 101-129/57-74 93-100 GENERAL: The patient is awake, alert, and fully oriented, in no acute distress. HEAD: Normal with no signs of trauma. EYES: PERRL, extraocular movements intact, sclera anicteric, conjunctiva clear. ENT: Oropharynx clear without exudates, moist mucous membranes. LUNGS: Poor inspiratory effort bilaterally. No wheezes, no crackles. No accessory muscle use. HEART: Regular rate and rhythm, S1, S2 without murmur, rub or gallop. ABDOMEN: Obese abdomen. Soft, nontender, nondistended. EXTREMITIES: 2+ pulses, warm, well-perfused, no edema. NEUROLOGICAL: Cranial nerves II through XII grossly intact. Normal speech; voice improving. PSYCH: Normal mood, normal affect. SKIN: Warm, dry. Laboratory Results - last 24 hr 03/16/20 03/16/20 03/16/20 06:20 17:07 21:04 Neutrophils % (Manual) 53.7 Band Neutrophils % 0.0 Lymphocytes % (Manual) 37.9 D Monocytes % (Manual) 3 L Eosinophils % (Manual) 0.0 Basophils % (Manual) 0.0 Myelocytes % (Man) 2 D Promyelocytes % (Man) 0 Blast Cells % (Manual) 0 Nucleated RBC % 0 Metamyelocytes 0 Hypochromia 0 Platelet Estimate Normal Polychromasia 1+ Poikilocytosis 1+ Basophilic Stippling 1+ Anisocytosis 1+ Microcytosis 1+ Macrocytosis 0 Tear Drop Cells 1+ Stomatocytes 1+ POC Glucometer 244 257 03/17/20 03/17/20 05:41 11:07 Neutrophils % (Manual) Band Neutrophils % Lymphocytes % (Manual) Monocytes % (Manual) Eosinophils % (Manual) Basophils % (Manual) Myelocytes % (Man) Promyelocytes % (Man) Blast Cells % (Manual) Nucleated RBC % Metamyelocytes Hypochromia Platelet Estimate Polychromasia Poikilocytosis Basophilic Stippling Anisocytosis Microcytosis Macrocytosis Tear Drop Cells Stomatocytes POC Glucometer 301 111 Active Medications Generic Name Dose Route Start Last Admin Trade Name Freq PRN Reason Stop Dose Admin Acetaminophen 650 mg 03/01/20 15:34 Tylenol - PO Q6H PRN FEVER Albuterol Sulfate 1 puff 03/01/20 15:34 Ventolin Hfa Inhaler - IH Q4H PRN SHORT OF BREATH/WHEEZING Apixaban 5 mg 03/01/20 22:00 03/17/20 11:04 Eliquis - PO 5 mg BID SARAH Administration Ascorbic Acid 500 mg 03/01/20 22:00 03/17/20 11:04 Vitamin C - PO 500 mg BID SARAH Administration Atorvastatin Calcium 40 mg 03/01/20 22:00 03/16/20 21:39 Lipitor - PO 40 mg HS [facility] Administration Benzocaine/Menthol 1 each 03/01/20 10:20 03/08/20 09:57 Cepacol Lozenge - MM 1 each Q4H PRN Administration SORE THROAT Budesonide/Formoterol Fumarate 2 puff 03/01/20 22:00 03/17/20 11:05 Symbicort 80/4.5mcg - IH 2 puff BID SARAH Administration Cholecalciferol 2,000 unit 03/02/20 10:00 03/17/20 11:04 Vitamin D3 - PO 2,000 unit DAILY SARAH Administration Clotrimazole 1 applic 03/01/20 22:00 03/17/20 11:04 Lotrimin 1% Cream - TP Not Given BID SARAH Dexamethasone 4 mg 03/14/20 22:00 03/17/20 11:03 Decadron - PO 4 mg BID SARAH Administration Insulin Aspart 1 vial 03/08/20 16:23 03/17/20 11:08 Novolog Vial Sliding Scale - SQ Not Given ACHS [facility] Protocol Insulin Aspart 10 units 03/09/20 09:12 03/17/20 11:08 Novolog SQ 10 units TIDAC SARAH Administration Insulin Detemir 30 units 03/09/20 07:00 03/17/20 06:00 Levemir Vial SQ 30 units ACBK SARAH Administration Insulin Detemir 25 units 03/08/20 22:00 03/16/20 21:39 Levemir Vial SQ 25 units HS SARAH Administration Melatonin 5 mg 03/01/20 22:00 03/03/20 21:41 Melatonin PO 5 mg HS PRN Administration INSOMNIA Pantoprazole Sodium 40 mg 03/04/20 10:00 03/17/20 11:03 Protonix - PO 40 mg DAILY SARAH Administration Zinc Sulfate 220 mg 03/01/20 22:00 03/17/20 11:04 Orazinc - PO 220 mg BID SARAH Administration ASSESSMENT/PLAN: Patient is a 34 year old male with history of hypertension, obesity, diabetes mellitus admitted for COVID pneumonitis. Acute hypoxic respiratory failure- secondary to COVID pneumonitis -s/p Remdesivir, Tocilizumab, convalescent plasma, antibiotics -Decadron 4mg P BID -Eliquis 5mg PO BID -Continue BiPAP - patient reportedly desaturating when attempting to ambulate using Astral device. -Continue Ventolin, Symbcort inhaler -Pilmonology recommendations (Dr. Cavazos) appreciated. Diabetes mellitus -Levemir 30 units in AM, 25 units QHS -Insulin sliding scale ACHS -Fingerstick blood glucose ACHS Hyperlipidemia -Atorvastatin 40mg PO HS FEN -No IV fluids indicated -Follow BMP -Diabetic diet Prophylaxis -Eliquis 5mg PO BID -Protonix 40mg PO daily Disposition -Continue care in Medical- Surgical floor. Visit type - Emergency Visit Emergency Visit: Yes ED Registration Date: 01/25/20 Care time: The patient presented to the Emergency Department on the above date and was hospitalized for further evaluation of their emergent condition. - New Patient This patient is new to me today: No - Critical Care Critical Care patient: No - Discharge Referral Referred to [facility] No ATTENDING PHYSICIAN STATEMENT I saw and evaluated the patient. I reviewed the resident's note and discussed the case with the resident. I agree with the resident's findings and plan as documented. SUBJECTIVE: OBJECTIVE: ASSESSMENT AND PLAN:
[2020-03-17] MEDS ORDERED: FUROSEMIDE 40 MG TABLET (FP) PO ONE (12:09)
--- NOTE | 2020-03-17 12:52 | PN ---
Teaching Attending Note Name of Resident: Chris Johnson ATTENDING PHYSICIAN STATEMENT I saw and evaluated the patient. I reviewed the resident's note and discussed the case with the resident. I agree with the resident's findings and plan as documented. SUBJECTIVE: Feeling comfortable on NRB with BiPAP overnight. Desaturated repeatedly on Astral portable NIV device. OBJECTIVE: Afebrile, Hemodynamically stable. SpO2 93-95% on NRB Last Vital Signs Temp Pulse Resp BP Pulse Ox 98 F 78 20 120/73 93 L 03/17/20 11:12 03/17/20 11:12 03/17/20 11:12 03/17/20 11:12 03/17/20 09:00 Heart - S1, S2, RRR Lungs - decreased air entry at bases with few crackles Abdomen - high BMI. Soft, non-tender. Bowel Sounds normal. Extremities - mild edema, no calf tenderness. Neuro - AAO x 3. Tone/Power normal all extremities. Laboratory Results - last 24 hr 03/16/20 03/16/20 03/17/20 17:07 21:04 05:41 POC Glucometer 244 257 301 03/17/20 11:07 POC Glucometer 111 Current Medications Generic Name Dose Route Start Last Admin Trade Name Freq PRN Reason Stop Dose Admin Acetaminophen 650 mg 03/01/20 15:34 Tylenol - PO Q6H PRN FEVER Albuterol Sulfate 1 puff 03/01/20 15:34 Ventolin Hfa Inhaler - IH Q4H PRN SHORT OF BREATH/WHEEZING Apixaban 5 mg 03/01/20 22:00 03/17/20 11:04 Eliquis - PO 5 mg BID SARHA Administration Ascorbic Acid 500 mg 03/01/20 22:00 03/17/20 11:04 Vitamin C - PO 500 mg BID SARAH Administration Atorvastatin Calcium 40 mg 03/01/20 22:00 03/16/20 21:39 Lipitor - PO 40 mg HS SARAH Administration Benzocaine/Menthol 1 each 03/01/20 10:20 03/08/20 09:57 Cepacol Lozenge - MM 1 each Q4H PRN Administration SORE THROAT Budesonide/Formoterol Fumarate 2 puff 03/01/20 22:00 03/17/20 11:05 Symbicort 80/4.5mcg - IH 2 puff BID SARAH Administration Cholecalciferol 2,000 unit 03/02/20 10:00 03/17/20 11:04 Vitamin D3 - PO 2,000 unit DAILY SARAH Administration Clotrimazole 1 applic 03/01/20 22:00 03/17/20 11:04 Lotrimin 1% Cream - TP Not Given BID SARAH Dexamethasone 4 mg 03/14/20 22:00 03/17/20 11:03 Decadron - PO 4 mg BID SARAH Administration Insulin Aspart 1 vial 03/08/20 16:23 03/17/20 11:08 Novolog Vial Sliding Scale - SQ Not Given ACHS [facility] Protocol Insulin Aspart 10 units 03/09/20 09:12 03/17/20 11:08 Novolog SQ 10 units TIDAC SARAH Administration Insulin Detemir 30 units 03/09/20 07:00 03/17/20 06:00 Levemir Vial SQ 30 units ACBK SARAH Administration Insulin Detemir 25 units 03/08/20 22:00 03/16/20 21:39 Levemir Vial SQ 25 units HS SARAH Administration Melatonin 5 mg 03/01/20 22:00 03/03/20 21:41 Melatonin PO 5 mg HS PRN Administration INSOMNIA Pantoprazole Sodium 40 mg 03/04/20 10:00 03/17/20 11:03 Protonix - PO 40 mg DAILY SARAH Administration Zinc Sulfate 220 mg 03/01/20 22:00 03/17/20 11:04 Orazinc - PO 220 mg BID SARAH Administration Home Medications Medication Instructions Recorded NK [No Known Home Medication] 03/02/20 ASSESSMENT AND PLAN: 34 year old male with history of Obesity, HTN (not on medication), presented 01/24 with a 3-4 day history of increasing dyspnea and diarrhea after testing positive for COVID. He was newly diagnosed as having DM 2 on this admission, and currently remains dependent on NRB and BiPAP to maintain adequate oxygenation. CT Chest - bilateral infiltrates, mediastinal LN - for 3 month follow up. 1. 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 Continue Eliquis 5mg BID Vitamin C, Vitamin D, Zinc Repeat COVID negative NIPPV at night & PRN Tried Astral NIV device with repeated episodes of desaturation yesterday. Decadron taper as per Pulm Further recommendations as per Pulm, possible Lung transplant candidate in the future. 2. DM 2 - newly diagnosed A1c 10.5 Currently on Levemir 30/ and Novolog ac Hyperglycemic episodes compounded by Steroids are improving. 3. Iron deficiency anemia s/p IV iron 100mg x 3 days No evidence of acute blood loss. Further investigation as out-patient. 4. Atypical CP - resolved. Echo - poor quality, appears normal. Stress MIBI when more stable as per Cardio. 5. HLD - started on Statin. 6. Mediastinal LN on CT Chest - likely reactive, recommendation for 3 month follow up DVT Px on Eliquis GI PX - PPI.
--- NOTE | 2020-03-17 13:56 | PN ---
Progress Note (short form) - Note Progress Note: Remains on NRBM alternating with NIPPV. Voice and cough are improving. Did not attempt to use Astral device today and requesting not to. Intake & Output 03/14/20 03/15/20 03/16/20 03/17/20 23:59 23:59 23:59 23:59 Intake Total 600 700 670 680 Output Total 7457 560 1248 1750 Balance -1200 250 -1130 -1070 Weight 315 lb 3.2 oz 317 lb 315 lb 4 oz Last Vital Signs Temp Pulse Resp BP Pulse Ox 97.7 F 89 20 120/78 93 L 03/17/20 13:45 03/17/20 13:45 03/17/20 13:45 03/17/20 13:45 03/17/20 09:00 Active Medications Acetaminophen (Tylenol -) 650 mg PO Q6H PRN PRN Reason: FEVER Albuterol Sulfate (Ventolin Hfa Inhaler -) 1 puff IH Q4H PRN PRN Reason: SHORT OF BREATH/WHEEZING Apixaban (Eliquis -) 5 mg PO BID [facility] Last Admin: 03/17/20 11:04 Dose: 5 mg Documented by: Ascorbic Acid (Vitamin C -) 500 mg PO BID [facility] Last Admin: 03/17/20 11:04 Dose: 500 mg Documented by: Atorvastatin Calcium (Lipitor -) 40 mg PO HS [facility] Last Admin: 03/16/20 21:39 Dose: 40 mg Documented by: Benzocaine/Menthol (Cepacol Lozenge -) 1 each MM Q4H PRN PRN Reason: SORE THROAT Last Admin: 03/08/20 09:57 Dose: 1 each Documented by: Budesonide/Formoterol Fumarate (Symbicort 80/4.5mcg -) 2 puff IH BID [facility] Last Admin: 03/17/20 11:05 Dose: 2 puff Documented by: Cholecalciferol (Vitamin D3 -) 2,000 unit PO DAILY [facility] Last Admin: 03/17/20 11:04 Dose: 2,000 unit Documented by: Clotrimazole (Lotrimin 1% Cream -) 1 applic TP BID [facility] Last Admin: 03/17/20 11:04 Dose: Not Given Documented by: Dexamethasone (Decadron -) 4 mg PO BID [facility] Last Admin: 03/17/20 11:03 Dose: 4 mg Documented by: Insulin Aspart (Novolog Vial Sliding Scale -) 1 vial SQ ACHS [facility]; Protocol Last Admin: 03/17/20 11:08 Dose: Not Given Documented by: Insulin Aspart (Novolog) 10 units SQ TIDAC [facility] Last Admin: 03/17/20 11:08 Dose: 10 units Documented by: Insulin Detemir (Levemir Vial) 30 units SQ ACBK [facility] Last Admin: 03/17/20 06:00 Dose: 30 units Documented by: Insulin Detemir (Levemir Vial) 25 units SQ HS [facility] Last Admin: 03/16/20 21:39 Dose: 25 units Documented by: Melatonin (Melatonin) 5 mg PO HS PRN PRN Reason: INSOMNIA Last Admin: 03/03/20 21:41 Dose: 5 mg Documented by: Pantoprazole Sodium (Protonix -) 40 mg PO DAILY [facility] Last Admin: 03/17/20 11:03 Dose: 40 mg Documented by: Zinc Sulfate (Orazinc -) 220 mg PO BID [facility] Last Admin: 03/17/20 11:04 Dose: 220 mg Documented by: Gen: Less tachypneic at rest Heart: RRR Lung: Diminished throughout Abd: soft, nontender Ext: no edema Laboratory Results - last 24 hr 03/16/20 03/16/20 03/17/20 17:07 21:04 05:41 POC Glucometer 244 257 301 03/17/20 11:07 POC Glucometer 111 A/P Acute Hypoxic Respiratory Failure COVID Pneumonia ARDS HTN DM Anemia - PO Lasix - s/p remdesivir course - s/p tocilizumab infusion - s/p convalescent plasma transfusion - cough suppressants - continue anticoagulation - completed empiric antibiotics - O2 to keep SpO2 >90% - NIPPV at night & PRN - Astral trials as patient is willing Patient trialed on 4 L NC @ rest: Quickly desaturated to below 85%. Therefore, the patient will require home Oxygen therapy with portability upon discharge with Oximizer pendant. Due to Chronic Respiratory Failure and advancement of Obstructive and Restrictive lung Disease with lack of gas exchange the patient requires ventilation via a non-invasive ventilator as BiPAP is no longer effective in treatment to effectively decrease work of breathing and to improve pulmonary status and prevent interruption or failure of respiratory support. Dr Cavazos
[2020-03-17] MEDS: ATORVASTATIN CA 40 MG TABLET (FP) PO SCH (22:22)
[2020-03-18] MEDS: INSULIN (LEVEMIR) 100 UNITS/ML UNITS SQ SCH ×2 (06:56→21:04)
[2020-03-18] MEDS: Insulin (LOG) Aspart 100 UNITS/ML VIAL SQ SCH ×3 (06:56→16:46)
[2020-03-18] MEDS: INSULIN SLIDING SCALE (NOVOLOG) 1 VIAL SQ SCH ×4 (06:57→21:04)
--- NOTE | 2020-03-18 09:23 | PN ---
Progress Note, Physician History of Present Illness: 34yo male with recent COVID positive test presents to the ED with shortness of breath and extreme fatigue. Recently on azithromycin course without relief. Saturating at 98% on room air, placed on 2L nasal cannula upon arrival with symptomatic relief. Patient has been progressively short of breath since diagnosis. - Current Medication List Current Medications: Active Medications Acetaminophen (Tylenol -) 650 mg PO Q6H PRN PRN Reason: FEVER Albuterol Sulfate (Ventolin Hfa Inhaler -) 1 puff IH Q4H PRN PRN Reason: SHORT OF BREATH/WHEEZING Apixaban (Eliquis -) [address] [facility] Last Admin: 03/17/20 22:22 Dose: 5 mg Documented by: Ascorbic Acid (Vitamin C -) [address] [facility] Last Admin: 03/17/20 22:22 Dose: 500 mg Documented by: Atorvastatin Calcium (Lipitor -) [address] [facility] Last Admin: 03/17/20 22:22 Dose: 40 mg Documented by: Benzocaine/Menthol (Cepacol Lozenge -) 1 each MM Q4H PRN PRN Reason: SORE THROAT Last Admin: 03/08/20 09:57 Dose: 1 each Documented by: Budesonide/Formoterol Fumarate (Symbicort 80/4.5mcg -) [address] [facility] Last Admin: 03/17/20 22:22 Dose: 2 puff Documented by: Cholecalciferol (Vitamin D3 -) 2,[address] [facility] Last Admin: 03/17/20 11:04 Dose: 2,000 unit Documented by: Clotrimazole (Lotrimin 1% Cream -) [address] [facility] Last Admin: 03/17/20 22:22 Dose: Not Given Documented by: Dexamethasone (Decadron -) [address] [facility] Last Admin: 03/17/20 22:21 Dose: 4 mg Documented by: Insulin Aspart (Novolog Vial Sliding Scale -) [address] [facility]; Protocol Last Admin: 03/18/20 06:57 Dose: 12 units Documented by: Insulin Aspart (Novolog) [address] [facility] Last Admin: 03/18/20 06:56 Dose: 10 units Documented by: Insulin Detemir (Levemir Vial) [address] [facility] Last Admin: 03/18/20 06:56 Dose: 30 units Documented by: Insulin Detemir (Levemir Vial) [address] [facility] Last Admin: 03/17/20 22:22 Dose: 25 units Documented by: Melatonin (Melatonin) 5 mg PO HS PRN PRN Reason: INSOMNIA Last Admin: 03/03/20 21:41 Dose: 5 mg Documented by: Pantoprazole Sodium (Protonix -) [address] [facility] Last Admin: 03/17/20 11:03 Dose: 40 mg Documented by: Zinc Sulfate (Orazinc -) [address] [facility] Last Admin: 03/17/20 22:22 Dose: 220 mg Documented by: - Objective Vital Signs: Vital Signs Temperature 98.0 F 03/18/20 06:58 Pulse Rate 86 03/18/20 06:58 Respiratory Rate 03/18/20 06:58 Blood Pressure 122/76 03/18/20 06:58 O2 Sat by Pulse Oximetry (%) 98 03/18/20 04:30 Eyes: Yes: WNL, Conjunctiva Clear, EOM Intact HENT: Yes: WNL, Atraumatic, Normocephalic Neck: Yes: WNL, Supple, Trachea Midline Cardiovascular: Yes: WNL, Regular Rate and Rhythm Respiratory: Yes: WNL, Regular, CTA Bilaterally Gastrointestinal: Yes: WNL, Normal Bowel Sounds Genitourinary: Yes: WNL Musculoskeletal: Yes: WNL Extremities: Yes: WNL Edema: No Integumentary: Yes: WNL Neurological: Yes: WNL, Alert, Oriented ...Motor Strength: WNL Psychiatric: Yes: WNL Labs: CBC, BMP 03/16/20 06:20 03/16/20 06:20 INR, PTT INR 1.00 (0.83-1.09) 01/25/20 16:29 Fibrinogen 468.0 mg/dL (238-498) 02/25/20 13:05 Problem List - Problems (1) Acute hypoxemic respiratory failure Code(s): J96.01 - ACUTE RESPIRATORY FAILURE WITH HYPOXIA (2) COVID-19 Code(s): U07.1 - COVID POSITIVE (3) HTN (hypertension) Code(s): I10 - ESSENTIAL (PRIMARY) HYPERTENSION (4) REYNALDO (obstructive sleep apnea) Code(s): G47.33 - OBSTRUCTIVE SLEEP APNEA (ADULT) (PEDIATRIC) (5) Obesity Code(s): E66.9 - OBESITY, UNSPECIFIED (6) Bronchitis Code(s): J40 - BRONCHITIS, NOT SPECIFIED ACUTE OR CHRONIC (7) Cough Code(s): R05 - COUGH Assessment/Plan s/p COVID pneumonia ARDS Hyperlipidemia DM Morbid Obesity Atypical chest pain Plan: COVID not detected (02/28/20) Continue bronchodilators, O2, steroids, and antibiotics per senior clinical sas programmer (awaits home O2 unit). TNI < 0.02 x 2 EKG:NSR; no acute changes LDL cholesterol 122 mg/dL; keep < 70 mg;dL with statin, diet change. On apixaban for anticoagulation. BUN/Cr, electrolytes, daily weight, Is and Os. ECHO: suboptimal study; normal LVEF; could not comment on RV or RA; suggest repeat test when pt better able to tolerate it (e.g. be positioned for better visual windows). Now on losartan (HTN; diastolic dysfunction; DM). Plan on stress MIBI, due to multiple CAD risks, when stable. Given pt's frail state, this may need to be deferred until a later date.
[2020-03-18] MEDS: ASCORBIC ACID 500 MG TABLET (FP) PO SCH ×2 (10:14→21:05)
[2020-03-18] MEDS: DEXAMETHASONE 4 MG TABLET (FP) PO SCH ×2 (10:14→21:03)
[2020-03-18] MEDS: CHOLECALCIFEROL (VIT D3) 1,000 UNIT (25 MCG) TABLET PO SCH (10:14)
[2020-03-18] MEDS: BUDESONIDE/FORMETEROL FUMARATE 80/4.5 mcg INHALER IH SCH ×2 (10:14→21:05)
[2020-03-18] MEDS: APIXABAN 5 MG TABLET PO SCH ×2 (10:14→21:03)
[2020-03-18] MEDS: PANTOPRAZOLE 40 MG TABLET PO SCH (10:14)
[2020-03-18] MEDS: CLOTRIMAZOLE 1% CREAM 15 GM TUBE TP SCH ×2 (10:15→21:04)
[2020-03-18] MEDS: ZINC SULFATE 220 MG CAPSULE (FP) PO SCH ×2 (10:15→21:05)
[2020-03-18] MEDS ORDERED: INSULIN (NOVOLOG) ASPART 100 UNITS/ML 10ML VIAL ONE (11:32)
--- NOTE | 2020-03-18 12:30 | PN ---
Physical Exam: SUBJECTIVE: Patient seen and examined at bedside. Endorses attempts to use Astral device, however reports desaturation with ambulation. OBJECTIVE: Vital Signs Period Temp Pulse Resp BP Sys/Miner Pulse Ox Last 24 Hr 97.7 F-98.6 F 71-92 20-20 120-127/72-84 95-100 GENERAL: The patient is awake, alert, and fully oriented, in no acute distress. HEAD: Normal with no signs of trauma. EYES: PERRL, extraocular movements intact, sclera anicteric, conjunctiva clear. ENT: Oropharynx clear without exudates, moist mucous membranes. LUNGS: Poor inspiratory effort bilaterally. No wheezes, no crackles. No accessory muscle use. HEART: Regular rate and rhythm, S1, S2 without murmur, rub or gallop. ABDOMEN: Obese abdomen. Soft, nontender, nondistended. EXTREMITIES: 2+ pulses, warm, well-perfused, no edema. NEUROLOGICAL: Cranial nerves II through XII grossly intact. Normal speech; voice improving. PSYCH: Normal mood, normal affect. SKIN: Warm, dry. Laboratory Results - last 24 hr 03/17/20 03/17/20 03/18/20 16:31 22:16 06:52 POC Glucometer 339 350 335 03/18/20 11:27 POC Glucometer 217 Active Medications Generic Name Dose Route Start Last Admin Trade Name Freq PRN Reason Stop Dose Admin Acetaminophen 650 mg 03/01/20 15:34 Tylenol - PO Q6H PRN FEVER Albuterol Sulfate 1 puff 03/01/20 15:34 Ventolin Hfa Inhaler - IH Q4H PRN SHORT OF BREATH/WHEEZING Apixaban 5 mg 03/01/20 22:00 03/18/20 10:14 Eliquis - PO 5 mg BID [facility] Administration Ascorbic Acid 500 mg 03/01/20 22:00 03/18/20 10:14 Vitamin C - PO 500 mg BID [facility] Administration Atorvastatin Calcium 40 mg 03/01/20 22:00 03/17/20 22:22 Lipitor - PO 40 mg HS [facility] Administration Benzocaine/Menthol 1 each 03/01/20 10:20 03/08/20 09:57 Cepacol Lozenge - MM 1 each Q4H PRN Administration SORE THROAT Budesonide/Formoterol Fumarate 2 puff 03/01/20 22:00 03/18/20 10:14 Symbicort 80/4.5mcg - IH 2 puff BID [facility] Administration Cholecalciferol 2,000 unit 03/02/20 10:00 03/18/20 10:14 Vitamin D3 - PO 2,000 unit DAILY [facility] Administration Clotrimazole 1 applic 03/01/20 22:00 03/18/20 10:15 Lotrimin 1% Cream - TP Not Given BID [facility] Dexamethasone 4 mg 03/14/20 22:00 03/18/20 10:14 Decadron - PO 4 mg BID [facility] Administration Insulin Aspart 1 vial 03/08/20 16:23 03/18/20 11:36 Novolog Vial Sliding Scale - SQ 6 units ACHS [facility] Administration Protocol Insulin Aspart 10 units 03/09/20 09:12 03/18/20 11:37 Novolog SQ 10 units TIDAC [facility] Administration Insulin Detemir 30 units 03/09/20 07:00 03/18/20 06:56 Levemir Vial SQ 30 units ACBK [facility] Administration Insulin Detemir 25 units 03/08/20 22:00 03/17/20 22:22 Levemir Vial SQ 25 units HS [facility] Administration Melatonin 5 mg 03/01/20 22:00 03/03/20 21:41 Melatonin PO 5 mg HS PRN Administration INSOMNIA Pantoprazole Sodium 40 mg 03/04/20 10:00 03/18/20 10:14 Protonix - PO 40 mg DAILY [facility] Administration Zinc Sulfate 220 mg 03/01/20 22:00 03/18/20 10:15 Orazinc - PO 220 mg BID [facility] Administration ASSESSMENT/PLAN: Patient is a 34 year old male with history of hypertension, obesity, diabetes mellitus admitted for COVID pneumonitis. Acute hypoxic respiratory failure- secondary to COVID pneumonitis -s/p Remdesivir, Tocilizumab, convalescent plasma, antibiotics -Decadron 4mg P BID -Eliquis 5mg PO BID -Continue BiPAP - patient reportedly desaturating when attempting to ambulate using Astral device. -Continue Ventolin, Symbcort inhaler -Pulmonology recommendations (Dr. Cavazos) appreciated. Diabetes mellitus -Levemir 30 units in AM, 25 units QHS -Insulin sliding scale ACHS -Fingerstick blood glucose ACHS Hyperlipidemia -Atorvastatin 40mg PO HS FEN -No IV fluids indicated -Follow BMP -Diabetic diet Prophylaxis -Eliquis 5mg PO BID -Protonix 40mg PO daily Disposition -Continue care in Medical- Surgical floor. Visit type - Emergency Visit Emergency Visit: Yes ED Registration Date: 01/25/20 Care time: The patient presented to the Emergency Department on the above date and was hospitalized for further evaluation of their emergent condition. - New Patient This patient is new to me today: No - Critical Care Critical Care patient: No - Discharge Referral Referred to [facility] Med [facility] No ATTENDING PHYSICIAN STATEMENT I saw and evaluated the patient. I reviewed the resident's note and discussed the case with the resident. I agree with the resident's findings and plan as documented. SUBJECTIVE: OBJECTIVE: ASSESSMENT AND PLAN:
--- NOTE | 2020-03-18 12:37 | PN ---
Teaching Attending Note Name of Resident: Chris Johnson ATTENDING PHYSICIAN STATEMENT I saw and evaluated the patient. I reviewed the resident's note and discussed the case with the resident. I agree with the resident's findings and plan as documented. SUBJECTIVE: Feeling comfortable on NRB with BiPAP overnight. Continues to desaturate repeatedly on Astral portable NIV device. OBJECTIVE: Afebrile, Hemodynamically stable. SpO2 98% on BiPAP 60% Last Vital Signs Temp Pulse Resp BP Pulse Ox 98.4 F 69 18 103/72 98 03/18/20 10:00 03/18/20 10:00 03/18/20 10:00 03/18/20 10:00 03/18/20 04:30 Heart - S1, S2, RRR Lungs - decreased air entry at bases with few crackles Abdomen - high BMI. Soft, non-tender. Bowel Sounds normal. Extremities - mild edema, no calf tenderness. Neuro - AAO x 3. Tone/Power normal all extremities. Laboratory Results - last 24 hr 03/17/20 03/17/20 03/18/20 16:31 22:16 06:52 POC Glucometer 339 350 335 03/18/20 11:27 POC Glucometer 217 Current Medications Generic Name Dose Route Start Last Admin Trade Name Freq PRN Reason Stop Dose Admin Acetaminophen 650 mg 03/01/20 15:34 Tylenol - PO Q6H PRN FEVER Albuterol Sulfate 1 puff 03/01/20 15:34 Ventolin Hfa Inhaler - IH Q4H PRN SHORT OF BREATH/WHEEZING Apixaban 5 mg 03/01/20 22:00 03/18/20 10:14 Eliquis - PO 5 mg BID [facility] Administration Ascorbic Acid 500 mg 03/01/20 22:00 03/18/20 10:14 Vitamin C - PO 500 mg BID [facility] Administration Atorvastatin Calcium 40 mg 03/01/20 22:00 03/17/20 22:22 Lipitor - PO 40 mg HS [facility] Administration Benzocaine/Menthol 1 each 03/01/20 10:20 03/08/20 09:57 Cepacol Lozenge - MM 1 each Q4H PRN Administration SORE THROAT Budesonide/Formoterol Fumarate 2 puff 03/01/20 22:00 03/18/20 10:14 Symbicort 80/4.5mcg - IH 2 puff BID [facility] Administration Cholecalciferol 2,000 unit 03/02/20 10:00 03/18/20 10:14 Vitamin D3 - PO 2,000 unit DAILY [facility] Administration Clotrimazole 1 applic 03/01/20 22:00 03/18/20 10:15 Lotrimin 1% Cream - TP Not Given BID [facility] Dexamethasone 4 mg 03/14/20 22:00 03/18/20 10:14 Decadron - PO 4 mg BID [facility] Administration Insulin Aspart 1 vial 03/08/20 16:23 03/18/20 11:36 Novolog Vial Sliding Scale - SQ 6 units ACHS [facility] Administration Protocol Insulin Aspart 10 units 03/09/20 09:12 03/18/20 11:37 Novolog SQ 10 units TIDAC [facility] Administration Insulin Detemir 30 units 03/09/20 07:00 03/18/20 06:56 Levemir Vial SQ 30 units ACBK [facility] Administration Insulin Detemir 25 units 03/08/20 22:00 03/17/20 22:22 Levemir Vial SQ 25 units HS [facility] Administration Melatonin 5 mg 03/01/20 22:00 03/03/20 21:41 Melatonin PO 5 mg HS PRN Administration INSOMNIA Pantoprazole Sodium 40 mg 03/04/20 10:00 03/18/20 10:14 Protonix - PO 40 mg DAILY [facility] Administration Zinc Sulfate 220 mg 03/01/20 22:00 03/18/20 10:15 Orazinc - PO 220 mg BID [facility] Administration Home Medications Medication Instructions Recorded NK [No Known Home Medication] 03/02/20 ASSESSMENT AND PLAN: 34 year old male with history of Obesity, HTN (not on medication), presented 01/24 with a 3-4 day history of increasing dyspnea and diarrhea after testing positive for COVID. He was newly diagnosed as having DM 2 on this admission, and currently remains dependent on NRB and BiPAP to maintain adequate oxygenation. CT Chest - bilateral infiltrates, mediastinal LN - for 3 month follow up. 1. 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 Continue Eliquis 5mg BID Vitamin C, Vitamin D, Zinc Repeat COVID negative NIPPV at night & PRN Tried Astral NIV device with repeated episodes of desaturation. Decadron taper as per Pulm. Lasix 40mg x1 yesterday. Further recommendations as per Pulm, possible Lung transplant candidate in the future. 2. DM 2 - newly diagnosed A1c 10.5 Currently on Levemir 30/25 and Novolog ac Hyperglycemic episodes compounded by Steroids. 3. Iron deficiency anemia s/p IV iron 100mg x 3 days No evidence of acute blood loss. Further investigation as out-patient. 4. Atypical CP - resolved. Echo - poor quality, appears normal. Stress MIBI when more stable at a later date as per Cardio. 5. HLD - started on Statin. 6. Mediastinal LN on CT Chest - likely reactive, recommendation for 3 month follow up DVT Px on Eliquis GI PX - PPI.
--- NOTE | 2020-03-18 12:56 | PN ---
Progress Note (short form) - Note Progress Note: Remains on NRBM. Tried Astral this AM and apparently desaturated to the 80;s and felt MEJIA & SOB. Voice and cough are improving. Intake & Output 03/15/20 03/16/20 03/17/20 03/18/20 23:59 23:59 23:59 23:59 Intake Total 864 722 9655 300 Output Total 450 1800 3100 400 Balance 250 -1130 -1720 -100 Weight 317 lb 315 lb 4 oz 317 lb 4 oz Last Vital Signs Temp Pulse Resp BP Pulse Ox 98.4 F 69 18 103/72 98 03/18/20 10:00 03/18/20 10:00 03/18/20 10:00 03/18/20 10:00 03/18/20 04:30 Active Medications Acetaminophen (Tylenol -) 650 mg PO Q6H PRN PRN Reason: FEVER Albuterol Sulfate (Ventolin Hfa Inhaler -) 1 puff IH Q4H PRN PRN Reason: SHORT OF BREATH/WHEEZING Apixaban (Eliquis -) 5 mg PO BID [facility] Last Admin: 03/18/20 10:14 Dose: 5 mg Documented by: Ascorbic Acid (Vitamin C -) 500 mg PO BID [facility] Last Admin: 03/18/20 10:14 Dose: 500 mg Documented by: Atorvastatin Calcium (Lipitor -) 40 mg PO HS [facility] Last Admin: 03/17/20 22:22 Dose: 40 mg Documented by: Benzocaine/Menthol (Cepacol Lozenge -) 1 each MM Q4H PRN PRN Reason: SORE THROAT Last Admin: 03/08/20 09:57 Dose: 1 each Documented by: Budesonide/Formoterol Fumarate (Symbicort 80/4.5mcg -) 2 puff IH BID [facility] Last Admin: 03/18/20 10:14 Dose: 2 puff Documented by: Cholecalciferol (Vitamin D3 -) 2,000 unit PO DAILY [facility] Last Admin: 03/18/20 10:14 Dose: 2,000 unit Documented by: Clotrimazole (Lotrimin 1% Cream -) 1 applic TP BID [facility] Last Admin: 03/18/20 10:15 Dose: Not Given Documented by: Dexamethasone (Decadron -) 4 mg PO BID [facility] Last Admin: 03/18/20 10:14 Dose: 4 mg Documented by: Furosemide (Lasix -) 40 mg PO ONCE ONE Stop: 03/18/20 13:01 Insulin Aspart (Novolog Vial Sliding Scale -) 1 vial SQ ACHS [facility]; Protocol Last Admin: 03/18/20 11:36 Dose: 6 units Documented by: Insulin Aspart (Novolog) 10 units SQ TIDAC [facility] Last Admin: 03/18/20 11:37 Dose: 10 units Documented by: Insulin Detemir (Levemir Vial) 30 units SQ ACBK [facility] Last Admin: 03/18/20 06:56 Dose: 30 units Documented by: Insulin Detemir (Levemir Vial) 25 units SQ HS [facility] Last Admin: 03/17/20 22:22 Dose: 25 units Documented by: Melatonin (Melatonin) 5 mg PO HS PRN PRN Reason: INSOMNIA Last Admin: 03/03/20 21:41 Dose: 5 mg Documented by: Pantoprazole Sodium (Protonix -) 40 mg PO DAILY [facility] Last Admin: 03/18/20 10:14 Dose: 40 mg Documented by: Zinc Sulfate (Orazinc -) 220 mg PO BID [facility] Last Admin: 03/18/20 10:15 Dose: 220 mg Documented by: Gen: Less tachypneic at rest Heart: RRR Lung: Diminished throughout Abd: soft, nontender Ext: no edema Laboratory Results - last 24 hr 03/17/20 03/17/20 03/18/20 16:31 22:16 06:52 POC Glucometer 339 350 335 03/18/20 11:27 POC Glucometer 217 A/P Acute Hypoxic Respiratory Failure COVID Pneumonia ARDS HTN DM Anemia - PO Lasix - s/p remdesivir course - s/p tocilizumab infusion - s/p convalescent plasma transfusion - cough suppressants - continue anticoagulation - completed empiric antibiotics - O2 to keep SpO2 >90% - NIPPV at night & PRN - Astral trials as patient is willing Patient trialed on 4 L NC @ rest: Quickly desaturated to below 85%. Therefore, the patient will require home Oxygen therapy with portability upon discharge with Oximizer pendant. Due to Chronic Respiratory Failure and advancement of Obstructive and Restrictive lung Disease with lack of gas exchange the patient requires ventilation via a non-invasive ventilator as BiPAP is no longer effective in treatment to effectively decrease work of breathing and to improve pulmonary status and prevent interruption or failure of respiratory support. Patient willing to explore Rehab at this point. Dr Cavazos
[2020-03-18] MEDS ORDERED: FUROSEMIDE 40 MG TABLET (FP) PO ONE (13:00)
[2020-03-18] MEDS: ATORVASTATIN CA 40 MG TABLET (FP) PO SCH (21:04)
[2020-03-19] MEDS: INSULIN (LEVEMIR) 100 UNITS/ML UNITS SQ SCH ×2 (06:25→22:09)
[2020-03-19] MEDS: INSULIN SLIDING SCALE (NOVOLOG) 1 VIAL SQ SCH ×4 (06:25→22:10)
[2020-03-19] MEDS: Insulin (LOG) Aspart 100 UNITS/ML VIAL SQ SCH ×3 (06:30→16:37)
[2020-03-19] MEDS ORDERED: PT OWN MED DRAWER 7, Y5N ONE (08:58)
[2020-03-19] MEDS: ASCORBIC ACID 500 MG TABLET (FP) PO SCH ×2 (09:20→22:08)
[2020-03-19] MEDS: APIXABAN 5 MG TABLET PO SCH ×2 (09:20→22:08)
[2020-03-19] MEDS: PANTOPRAZOLE 40 MG TABLET PO SCH (09:21)
[2020-03-19] MEDS: ZINC SULFATE 220 MG CAPSULE (FP) PO SCH ×2 (09:21→22:08)
[2020-03-19] MEDS: DEXAMETHASONE 4 MG TABLET (FP) PO SCH ×2 (09:21→22:08)
[2020-03-19] MEDS: CHOLECALCIFEROL (VIT D3) 1,000 UNIT (25 MCG) TABLET PO SCH (09:21)
[2020-03-19] MEDS: BUDESONIDE/FORMETEROL FUMARATE 80/4.5 mcg INHALER IH SCH ×2 (09:24→22:13)
[2020-03-19] MEDS: CLOTRIMAZOLE 1% CREAM 15 GM TUBE TP SCH ×2 (09:25→22:07)
[2020-03-19] MEDS ORDERED: INSULIN (NOVOLOG) ASPART 100 UNITS/ML 10ML VIAL ONE ×2 (11:28→21:15)
--- NOTE | 2020-03-19 12:16 | PN ---
Progress Note, Physician History of Present Illness: 34yo male with recent COVID positive test presents to the ED with shortness of breath and extreme fatigue. Recently on azithromycin course without relief. Saturating at 98% on room air, placed on 2L nasal cannula upon arrival with symptomatic relief. Patient has been progressively short of breath since diagnosis. - Current Medication List Current Medications: Active Medications Acetaminophen (Tylenol -) 650 mg PO Q6H PRN PRN Reason: FEVER Albuterol Sulfate (Ventolin Hfa Inhaler -) 1 puff IH Q4H PRN PRN Reason: SHORT OF BREATH/WHEEZING Apixaban (Eliquis -) 5 mg PO BID [facility] Last Admin: 03/19/20 09:20 Dose: 5 mg Documented by: Ascorbic Acid (Vitamin C -) 500 mg PO BID [facility] Last Admin: 03/19/20 09:20 Dose: 500 mg Documented by: Atorvastatin Calcium (Lipitor -) 40 mg PO HS [facility] Last Admin: 03/18/20 21:04 Dose: 40 mg Documented by: Benzocaine/Menthol (Cepacol Lozenge -) 1 each MM Q4H PRN PRN Reason: SORE THROAT Last Admin: 03/08/20 09:57 Dose: 1 each Documented by: Budesonide/Formoterol Fumarate (Symbicort 80/4.5mcg -) 2 puff IH BID [facility] Last Admin: 03/19/20 09:24 Dose: 2 puff Documented by: Cholecalciferol (Vitamin D3 -) 2,000 unit PO DAILY [facility] Last Admin: 03/19/20 09:21 Dose: 2,000 unit Documented by: Clotrimazole (Lotrimin 1% Cream -) 1 applic TP BID [facility] Last Admin: 03/19/20 09:25 Dose: Not Given Documented by: Dexamethasone (Decadron -) 4 mg PO BID [facility] Last Admin: 03/19/20 09:21 Dose: 4 mg Documented by: Insulin Aspart (Novolog Vial Sliding Scale -) 1 vial SQ ACHS [facility]; Protocol Last Admin: 03/19/20 11:36 Dose: 3 units Documented by: Insulin Aspart (Novolog) 10 units SQ TIDAC [facility] Last Admin: 03/19/20 11:38 Dose: 10 units Documented by: Insulin Detemir (Levemir Vial) 30 units SQ ACBK [facility] Last Admin: 03/19/20 06:25 Dose: 30 units Documented by: Insulin Detemir (Levemir Vial) 25 units SQ HS [facility] Last Admin: 03/18/20 21:04 Dose: 25 units Documented by: Melatonin (Melatonin) 5 mg PO HS PRN PRN Reason: INSOMNIA Last Admin: 03/03/20 21:41 Dose: 5 mg Documented by: Pantoprazole Sodium (Protonix -) 40 mg PO DAILY [facility] Last Admin: 03/19/20 09:21 Dose: 40 mg Documented by: Zinc Sulfate (Orazinc -) 220 mg PO BID [facility] Last Admin: 03/19/20 09:21 Dose: 220 mg Documented by: - Objective Vital Signs: Vital Signs Temperature 97.6 F 03/19/20 09:46 Pulse Rate 73 03/19/20 09:46 Respiratory Rate 03/19/20 09:46 Blood Pressure 121/83 03/19/20 09:46 O2 Sat by Pulse Oximetry (%) 100 03/19/20 10:00 Eyes: Yes: WNL, Conjunctiva Clear, EOM Intact HENT: Yes: WNL, Atraumatic, Normocephalic Neck: Yes: WNL, Supple, Trachea Midline Cardiovascular: Yes: WNL, Regular Rate and Rhythm Respiratory: Yes: WNL, Regular, CTA Bilaterally Gastrointestinal: Yes: WNL, Normal Bowel Sounds Genitourinary: Yes: WNL Musculoskeletal: Yes: WNL Extremities: Yes: WNL Edema: No Integumentary: Yes: WNL Neurological: Yes: WNL, Alert, Oriented ...Motor Strength: WNL Psychiatric: Yes: WNL Labs: CBC, BMP 03/16/20 06:20 03/16/20 06:20 INR, PTT INR 1.00 (0.83-1.09) 01/25/20 16:29 Fibrinogen 468.0 mg/dL (238-498) 02/25/20 13:05 Problem List - Problems (1) Acute hypoxemic respiratory failure Code(s): J96.01 - ACUTE RESPIRATORY FAILURE WITH HYPOXIA (2) COVID-19 Code(s): U07.1 - COVID POSITIVE (3) HTN (hypertension) Code(s): I10 - ESSENTIAL (PRIMARY) HYPERTENSION (4) REYNALDO (obstructive sleep apnea) Code(s): G47.33 - OBSTRUCTIVE SLEEP APNEA (ADULT) (PEDIATRIC) (5) Obesity Code(s): E66.9 - OBESITY, UNSPECIFIED (6) Bronchitis Code(s): J40 - BRONCHITIS, NOT SPECIFIED ACUTE OR CHRONIC (7) Cough Code(s): R05 - COUGH Assessment/Plan s/p COVID pneumonia ARDS Hyperlipidemia DM Morbid Obesity Atypical chest pain Plan: COVID not detected (02/28/20) Continue bronchodilators, O2, steroids, and antibiotics per child adolescent care (awaits home O2 unit). TNI < 0.02 x 2 EKG:NSR; no acute changes LDL cholesterol 122 mg/dL; keep < 70 mg;dL with statin, diet change. On apixaban for anticoagulation. BUN/Cr, electrolytes, daily weight, Is and Os. ECHO: suboptimal study; normal LVEF; could not comment on RV or RA; suggest repeat test when pt better able to tolerate it (e.g. be positioned for better visual windows). Now on losartan (HTN; diastolic dysfunction; DM). Plan on stress MIBI, due to multiple CAD risks, when stable. Given pt's frail state, this may need to be deferred until a later date.
--- NOTE | 2020-03-19 14:06 | PN ---
Progress Note (short form) - Note Progress Note: Remains on NRBM. Subjectively feels a little better. Voice and cough are improving. Intake & Output 03/16/20 03/17/20 03/18/20 03/19/20 23:59 23:59 23:59 23:59 Intake Total 670 1380 1480 400 Output Total 1800 3100 1450 Balance -1130 -1720 30 400 Weight 317 lb 315 lb 4 oz 317 lb 4 oz 313 lb 8 oz Last Vital Signs Temp Pulse Resp BP Pulse Ox 97.6 F 73 20 121/83 98 03/19/20 09:46 03/19/20 09:46 03/19/20 09:46 03/19/20 09:46 03/19/20 12:31 Active Medications Acetaminophen (Tylenol -) 650 mg PO Q6H PRN PRN Reason: FEVER Albuterol Sulfate (Ventolin Hfa Inhaler -) 1 puff IH Q4H PRN PRN Reason: SHORT OF BREATH/WHEEZING Apixaban (Eliquis -) 5 mg PO BID [facility] Last Admin: 03/19/20 09:20 Dose: 5 mg Documented by: Ascorbic Acid (Vitamin C -) 500 mg PO BID [facility] Last Admin: 03/19/20 09:20 Dose: 500 mg Documented by: Atorvastatin Calcium (Lipitor -) 40 mg PO [facility] Last Admin: 03/18/20 21:04 Dose: 40 mg Documented by: Benzocaine/Menthol (Cepacol Lozenge -) 1 each MM Q4H PRN PRN Reason: SORE THROAT Last Admin: 03/08/20 09:57 Dose: 1 each Documented by: Budesonide/Formoterol Fumarate (Symbicort 80/4.5mcg -) 2 puff IH BID [facility] Last Admin: 03/19/20 09:24 Dose: 2 puff Documented by: Cholecalciferol (Vitamin D3 -) 2,000 unit PO DAILY [facility] Last Admin: 03/19/20 09:21 Dose: 2,000 unit Documented by: Clotrimazole (Lotrimin 1% Cream -) 1 applic TP BID [facility] Last Admin: 03/19/20 09:25 Dose: Not Given Documented by: Dexamethasone (Decadron -) 4 mg PO BID [facility] Last Admin: 03/19/20 09:21 Dose: 4 mg Documented by: Insulin Aspart (Novolog Vial Sliding Scale -) 1 vial SQ ACHS [facility]; Protocol Last Admin: 03/19/20 11:36 Dose: 3 units Documented by: Insulin Aspart (Novolog) 10 units SQ TIDAC [facility] Last Admin: 03/19/20 11:38 Dose: 10 units Documented by: Insulin Detemir (Levemir Vial) 30 units SQ ACBK [facility] Last Admin: 03/19/20 06:25 Dose: 30 units Documented by: Insulin Detemir (Levemir Vial) 25 units SQ HS [facility] Last Admin: 03/18/20 21:04 Dose: 25 units Documented by: Melatonin (Melatonin) 5 mg PO HS PRN PRN Reason: INSOMNIA Last Admin: 03/03/20 21:41 Dose: 5 mg Documented by: Pantoprazole Sodium (Protonix -) 40 mg PO DAILY [facility] Last Admin: 03/19/20 09:21 Dose: 40 mg Documented by: Zinc Sulfate (Orazinc -) 220 mg PO BID [facility] Last Admin: 03/19/20 09:21 Dose: 220 mg Documented by: Gen: More comfortable Heart: RRR Lung: Diminished throughout Abd: soft, nontender Ext: no edema Laboratory Results - last 24 hr 03/18/20 03/18/20 03/19/20 16:42 20:59 06:27 POC Glucometer 305 248 292 03/19/20 11:25 POC Glucometer 171 A/P Acute Hypoxic Respiratory Failure COVID Pneumonia ARDS HTN DM Anemia - PO Lasix - s/p remdesivir course - s/p tocilizumab infusion - s/p convalescent plasma transfusion - cough suppressants - continue anticoagulation - completed empiric antibiotics - O2 to keep SpO2 >90% - NIPPV at night & PRN - Astral trials as patient is willing Due to Chronic Respiratory Failure and advancement of Obstructive and Restrictive lung Disease with lack of gas exchange the patient requires ventilat ion via a non-invasive ventilator as BiPAP is no longer effective in treatment to effectively decrease work of breathing and to improve pulmonary status and prevent interruption or failure of respiratory support. Patient willing to explore Rehab at this point. Dr Cavazos
--- NOTE | 2020-03-19 14:13 | PN ---
Teaching Attending Note Name of Resident: Mynor Curry ATTENDING PHYSICIAN STATEMENT I saw and evaluated the patient. I reviewed the resident's note and discussed the case with the resident. I agree with the resident's findings and plan as documented. SUBJECTIVE: Feeling comfortable on NRB with BiPAP overnight. Continues to desaturate repeatedly on Astral portable NIV device. OBJECTIVE: Afebrile, Hemodynamically stable. SpO2 98% on NRB 15L Last Vital Signs Temp Pulse Resp BP Pulse Ox 97.6 F 73 20 121/83 98 03/19/20 09:46 03/19/20 09:46 03/19/20 09:46 03/19/20 09:46 03/19/20 12:31 Heart - S1, S2, RRR Lungs - decreased air entry at bases with few crackles Abdomen - high BMI. Soft, non-tender. Bowel Sounds normal. Extremities - mild edema, no calf tenderness. Neuro - AAO x 3. Tone/Power normal all extremities. Laboratory Results - last 24 hr 03/18/20 03/18/20 03/19/20 16:42 20:59 06:27 POC Glucometer 305 248 292 03/19/20 11:25 POC Glucometer 171 Current Medications Generic Name Dose Route Start Last Admin Trade Name Freq PRN Reason Stop Dose Admin Acetaminophen 650 mg 03/01/20 15:34 Tylenol - PO Q6H PRN FEVER Albuterol Sulfate 1 puff 03/01/20 15:34 Ventolin Hfa Inhaler - IH Q4H PRN SHORT OF BREATH/WHEEZING Apixaban 5 mg 03/01/20 22:00 03/19/20 09:20 Eliquis - PO 5 mg BID [facility] Administration Ascorbic Acid 500 mg 03/01/20 22:00 03/19/20 09:20 Vitamin C - PO 500 mg BID [facility] Administration Atorvastatin Calcium 40 mg 03/01/20 22:00 03/18/20 21:04 Lipitor - PO 40 mg HS [facility] Administration Benzocaine/Menthol 1 each 03/01/20 10:20 03/08/20 09:57 Cepacol Lozenge - MM 1 each Q4H PRN Administration SORE THROAT Budesonide/Formoterol Fumarate 2 puff 03/01/20 22:00 03/19/20 09:24 Symbicort 80/4.5mcg - IH 2 puff BID [facility] Administration Cholecalciferol 2,000 unit 03/02/20 10:00 03/19/20 09:21 Vitamin D3 - PO 2,000 unit DAILY [facility] Administration Clotrimazole 1 applic 03/01/20 22:00 03/19/20 09:25 Lotrimin 1% Cream - TP Not Given BID [facility] Dexamethasone 4 mg 03/14/20 22:00 03/19/20 09:21 Decadron - PO 4 mg BID [facility] Administration Insulin Aspart 1 vial 03/08/20 16:23 03/19/20 11:36 Novolog Vial Sliding Scale - SQ 3 units ACHS [facility] Administration Protocol Insulin Aspart 10 units 03/09/20 09:12 03/19/20 11:38 Novolog SQ 10 units TIDAC [facility] Administration Insulin Detemir 30 units 03/09/20 07:00 03/19/20 06:25 Levemir Vial SQ 30 units ACBK [facility] Administration Insulin Detemir 25 units 03/08/20 22:00 03/18/20 21:04 Levemir Vial SQ 25 units HS [facility] Administration Melatonin 5 mg 03/01/20 22:00 03/03/20 21:41 Melatonin PO 5 mg HS PRN Administration INSOMNIA Pantoprazole Sodium 40 mg 03/04/20 10:00 03/19/20 09:21 Protonix - PO 40 mg DAILY [facility] Administration Zinc Sulfate 220 mg 03/01/20 22:00 03/19/20 09:21 Orazinc - PO 220 mg BID [facility] Administration Home Medications Medication Instructions Recorded NK [No Known Home Medication] 03/02/20 ASSESSMENT AND PLAN: 34 year old male with history of Obesity, HTN (not on medication), presented 01/24 with a 3-4 day history of increasing dyspnea and diarrhea after testing positive for COVID. He was newly diagnosed as having DM 2 on this admission, and currently remains dependent on NRB and BiPAP to maintain adequate oxygenation. CT Chest - bilateral infiltrates, mediastinal LN - for 3 month follow up. 1. 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 Continue Eliquis 5mg BID Vitamin C, Vitamin D, Zinc Repeat COVID negative NIPPV at night & PRN Tried Astral NIV device with repeated episodes of desaturation. Decadron taper as per Pulm. Lasix 40mg PO PRN as per Pulm. CXR - improving infiltrates. Further recommendations as per Pulm, possible Lung transplant candidate in the future. 2. DM 2 - newly diagnosed A1c 10.5 Currently on Levemir 30/25 and Novolog ac Hyperglycemic episodes compounded by Steroids. 3. Iron deficiency anemia s/p IV iron 100mg x 3 days No evidence of acute blood loss. Further investigation as out-patient. 4. Atypical CP - resolved. Echo - poor quality, appears normal. Stress MIBI when more stable at a later date as per Cardio. 5. HLD - started on Statin. 6. Mediastinal LN on CT Chest - likely reactive, recommendation for 3 month follow up DVT Px on Eliquis GI PX - PPI.
--- NOTE | 2020-03-19 14:35 | PN ---
Physical Exam: SUBJECTIVE: Patient seen and examined. Pt desatted on 4L NC yesterday and whenever he removes NRB/BIPAP he desats. Pt failed astral device as well, will continue to try daily. Pt has agreed to go to pulmonary rehab facility but has been denied by LTAC. SW aware and working on it. OBJECTIVE: Vital Signs Period Temp Pulse Resp BP Sys/Miner Pulse Ox Last 24 Hr 97.6 F-98.1 F 68-79 20-20 101-137/56-83 98-100 GENERAL: The patient is awake, alert, and fully oriented, in no acute distress. LUNGS: Breath sounds reduced, poor air entry b/l HEART: Regular rate and rhythm, S1, S2 without murmur, rub or gallop. ABDOMEN: Soft, nontender, nondistended. EXTREMITIES: 2+ pulses, warm, well-perfused, no edema. Laboratory Results - last 24 hr 03/18/20 03/18/20 03/19/20 16:42 20:59 06:27 POC Glucometer 305 248 292 03/19/20 11:25 POC Glucometer 171 Active Medications Generic Name Dose Route Start Last Admin Trade Name Freq PRN Reason Stop Dose Admin Acetaminophen 650 mg 03/01/20 15:34 Tylenol - PO Q6H PRN FEVER Albuterol Sulfate 1 puff 03/01/20 15:34 Ventolin Hfa Inhaler - IH Q4H PRN SHORT OF BREATH/WHEEZING Apixaban 5 mg 03/01/20 22:00 03/19/20 09:20 Eliquis - PO 5 mg BID [facility] Administration Ascorbic Acid 500 mg 03/01/20 22:00 03/19/20 09:20 Vitamin C - PO 500 mg BID [facility] Administration Atorvastatin Calcium 40 mg 03/01/20 22:00 03/18/20 21:04 Lipitor - PO 40 mg HS [facility] Administration Benzocaine/Menthol 1 each 03/01/20 10:20 03/08/20 09:57 Cepacol Lozenge - MM 1 each Q4H PRN Administration SORE THROAT Budesonide/Formoterol Fumarate 2 puff 03/01/20 22:00 03/19/20 09:24 Symbicort 80/4.5mcg - IH 2 puff BID [facility] Administration Cholecalciferol 2,000 unit 03/02/20 10:00 03/19/20 09:21 Vitamin D3 - PO 2,000 unit DAILY [facility] Administration Clotrimazole 1 applic 03/01/20 22:00 03/19/20 09:25 Lotrimin 1% Cream - TP Not Given BID [facility] Dexamethasone 4 mg 03/14/20 22:00 03/19/20 09:21 Decadron - PO 4 mg BID [facility] Administration Insulin Aspart 1 vial 03/08/20 16:23 03/19/20 11:36 Novolog Vial Sliding Scale - SQ 3 units ACHS [facility] Administration Protocol Insulin Aspart 10 units 03/09/20 09:12 03/19/20 11:38 Novolog SQ 10 units TIDAC [facility] Administration Insulin Detemir 30 units 03/09/20 07:00 03/19/20 06:25 Levemir Vial SQ 30 units ACBK [facility] Administration Insulin Detemir 25 units 03/08/20 22:00 03/18/20 21:04 Levemir Vial SQ 25 units HS [facility] Administration Melatonin 5 mg 03/01/20 22:00 03/03/20 21:41 Melatonin PO 5 mg HS PRN Administration INSOMNIA Pantoprazole Sodium 40 mg 03/04/20 10:00 03/19/20 09:21 Protonix - PO 40 mg DAILY [facility] Administration Zinc Sulfate 220 mg 03/01/20 22:00 03/19/20 09:21 Orazinc - PO 220 mg BID [facility] Administration ASSESSMENT/PLAN: 34M with HTN (no home meds) and newly diagnosed DM on this admission. He was admitted 01/24 after he presented with 3-4 days of increasing dyspnea and diarrhea after testing positive for COVID. #COVID 19 Pneumonia - Completed abx, remdesivir course, tocilizumab infusion, convalescent plasma transfusion - Was on Venti 50 yesterday, desatted with exertion, placed back on NRB - Pulm: NRB, Astral device pending delivery - CXR (03/19)_ slight improvement of b/l infiltrates from previously - CTA (03/10): No PE, inc Rt Pulm artery pressure, enlarged mediastinal lymph node - Decadron 4 mg BID PO continuing per pulm - Eliquis 5mg BID - Vitamin C, Vitamin D, Zinc - COVID (02/27) NEG # Atypical Chest Pain - Resolved, likely 2/2 excessive coughing, Robitussin Q4H - ACS ruled out: TNI neg x2; EKG showed NSR, no acute ischemic changes - Echo when stable/able to lie flat as per cardio - Plan for ECHO and MIBI when feasible with outpatient Cardio F/U with Dr. Rossi #Newly diagnosed DM - HbA1c 10.5, POC glucose in late 200s-300s - Levemir 30+25, Novolog 10TIDAC, Nov ISS - WILL REDUCE INSULIN WHEN DECADRON IS STOPPED # Headache - Fioricet Q6H - pt hasn't had any headaches #Hx of HTN - Started on Losartan here, holding for now due to low BP #Newly diagnosed HLD - Chol 204, LDL 122, HDL 62 - Lipitor 40 HS #FEN - DM diet #Prophylaxis - On Eliquis 5 mg BID - Started Protonix 40mg #Dispo - Pending Astral device (noninvasive portable device) Visit type - Emergency Visit Emergency Visit: Yes ED Registration Date: 01/25/20 Care time: The patient presented to the Emergency Department on the above date and was hospitalized for further evaluation of their emergent condition. - New Patient This patient is new to me today: No - Critical Care Critical Care patient: No - Discharge Referral Referred to [facility] Med P.C.: No ATTENDING PHYSICIAN STATEMENT I saw and evaluated the patient. I reviewed the resident's note and discussed the case with the resident. I agree with the resident's findings and plan as documented. SUBJECTIVE: OBJECTIVE: ASSESSMENT AND PLAN:
[2020-03-19] MEDS: ATORVASTATIN CA 40 MG TABLET (FP) PO SCH (22:08)
[2020-03-20] MEDS: INSULIN (LEVEMIR) 100 UNITS/ML UNITS SQ SCH ×2 (06:20→21:14)
[2020-03-20] MEDS: INSULIN SLIDING SCALE (NOVOLOG) 1 VIAL SQ SCH ×4 (06:21→21:15)
[2020-03-20] MEDS: Insulin (LOG) Aspart 100 UNITS/ML VIAL SQ SCH ×3 (06:22→16:40)
[2020-03-20] MEDS ORDERED: INSULIN (NOVOLOG) ASPART 100 UNITS/ML 10ML VIAL ONE ×3 (07:50→21:02)
[2020-03-20] MEDS ORDERED: INSULIN (LEVEMIR) 100 UNITS/ML UNITS SQ ONE (07:50)
[2020-03-20 08:15] LABS: BASO % 0.4 % (0-2.0); HEMATOCRIT 32.9 % (35.4-49); HEMOGLOBIN 10.2 GM/dL (11.7-16.9); LYMPH % 24.3 % (8-40); MCH 24.5 pg (25.7-33.7); MCHC 30.9 g/dl (32.0-35.9); MEAN CELL VOLUME 79.2 fl (80-96); MEAN PLT VOLUME 9.3 fl (7.5-11.1); MONO % 7.4 % (3.8-10.2); NEUT % 67.9 % (42.8-82.8); PLATELET COUNT 291 K/MM3 (134-434); RBC 4.15 M/mm3 (4.00-5.60); RDW 18.5 % (11.9-15.9); WHITE BLOOD COUNT 11.6 K/mm3 (4.0-10.0)
[2020-03-20 08:27] LABS: BLOOD UREA NITROGEN 23.9 mg/dL (7-18); CALCIUM 8.9 mg/dL (8.5-10.1); POTASSIUM 4.4 mmol/L (3.5-5.1)
[2020-03-20] MEDS ORDERED: PT OWN MED DRAWER 7, Y5N ONE (09:05)
[2020-03-20] MEDS: DEXAMETHASONE 4 MG TABLET (FP) PO SCH ×2 (09:10→21:16)
[2020-03-20] MEDS: PANTOPRAZOLE 40 MG TABLET PO SCH (09:11)
[2020-03-20] MEDS: ZINC SULFATE 220 MG CAPSULE (FP) PO SCH ×2 (09:11→21:16)
[2020-03-20] MEDS: APIXABAN 5 MG TABLET PO SCH ×2 (09:11→21:16)
[2020-03-20] MEDS: ASCORBIC ACID 500 MG TABLET (FP) PO SCH ×2 (09:11→21:16)
[2020-03-20] MEDS: CHOLECALCIFEROL (VIT D3) 1,000 UNIT (25 MCG) TABLET PO SCH (09:12)
[2020-03-20] MEDS: CLOTRIMAZOLE 1% CREAM 15 GM TUBE TP SCH ×2 (09:18→21:16)
[2020-03-20] MEDS: BUDESONIDE/FORMETEROL FUMARATE 80/4.5 mcg INHALER IH SCH (09:19)
--- NOTE | 2020-03-20 10:06 | PN ---
Physical Exam: SUBJECTIVE: Patient seen and examined. No acute events noted, pt daily attempts with astral device failed, waiting for LTAC placement. OBJECTIVE: Vital Signs Period Temp Pulse Resp BP Sys/Miner Pulse Ox Last 24 Hr 97.6 F-98.5 F 68-108 -20 90-142/39-86 98-100 GENERAL: The patient is awake, alert, and fully oriented, in no acute distress. LUNGS: Breath sounds reduced, poor air entry b/l HEART: Regular rate and rhythm, S1, S2 without murmur, rub or gallop. ABDOMEN: Soft, nontender, nondistended. EXTREMITIES: 2+ pulses, warm, well-perfused, no edema. Laboratory Results - last 24 hr 03/19/20 03/19/20 03/19/20 11:25 16:35 22:06 WBC RBC Hgb Hct MCV MCH MCHC RDW Plt Count MPV Absolute Neuts (auto) Neutrophils % Lymphocytes % Monocytes % Eosinophils % Basophils % Nucleated RBC % Sodium Potassium Chloride Carbon Dioxide Anion Gap BUN Creatinine Est GFR (CKD-EPI)AfAm Est GFR (CKD-EPI)NonAf POC Glucometer 171 320 283 Random Glucose Calcium 03/20/20 03/20/20 03/20/20 06:19 07:29 07:29 WBC 11.6 H RBC 4.15 Hgb 10.2 L Hct 32.9 L MCV 79.2 L MCH 24.5 L MCHC 30.9 L RDW 18.5 H Plt Count 291 MPV 9.3 Absolute Neuts (auto) 7.9 Neutrophils % 67.9 Lymphocytes % 24.3 Monocytes % 7.4 Eosinophils % 0.0 D Basophils % 0.4 D Nucleated RBC % 0 Sodium 138 Potassium 4.4 Chloride 101 Carbon Dioxide 30 Anion Gap 7 L BUN 23.9 H Creatinine 1.0 Est GFR (CKD-EPI)AfAm 112.51 Est GFR (CKD-EPI)NonAf 97.08 POC Glucometer 338 Random Glucose 348 H Calcium 8.9 Active Medications Generic Name Dose Route Start Last Admin Trade Name Freq PRN Reason Stop Dose Admin Acetaminophen 650 mg 03/01/20 15:34 Tylenol - PO Q6H PRN FEVER Albuterol Sulfate 1 puff 03/01/20 15:34 Ventolin Hfa Inhaler - IH Q4H PRN SHORT OF BREATH/WHEEZING Apixaban 5 mg 03/01/20 22:00 03/20/20 09:11 Eliquis - PO 5 mg BID [facility]AH Administration Ascorbic Acid 500 mg 03/01/20 22:00 03/20/20 09:11 Vitamin C - PO 500 mg BID [facility]AH Administration Atorvastatin Calcium 40 mg 03/01/20 22:00 03/19/20 22:08 Lipitor - PO 40 mg HS [facility]AH Administration Benzocaine/Menthol 1 each 03/01/20 10:20 03/08/20 09:57 Cepacol Lozenge - MM 1 each Q4H PRN Administration SORE THROAT Budesonide/Formoterol Fumarate 2 puff 03/01/20 22:00 03/20/20 09:19 Symbicort 80/4.5mcg - IH 2 puff BID [facility]AH Administration Cholecalciferol 2,000 unit 03/02/20 10:00 03/20/20 09:12 Vitamin D3 - PO 2,000 unit DAILY [facility] Administration Clotrimazole 1 applic 03/01/20 22:00 03/20/20 09:18 Lotrimin 1% Cream - TP Not Given BID SARAH Dexamethasone 4 mg 03/14/20 22:00 03/20/20 09:10 Decadron - PO 4 mg BID [facility] Administration Insulin Aspart 1 vial 03/08/20 16:23 03/20/20 06:21 Novolog Vial Sliding Scale - SQ 12 units ACHS [facility]CLUDES [facility] Administration Protocol Insulin Aspart 10 units 03/09/20 09:12 03/20/20 06:22 Novolog SQ 10 units TIDAC SARAH Administration Insulin Detemir 30 units 03/09/20 07:00 03/20/20 06:20 Levemir Vial SQ 30 units ACBK [facility]AH Administration Insulin Detemir 25 units 03/08/20 22:00 03/19/20 22:09 Levemir Vial SQ 25 units HS [facility]AH Administration Melatonin 5 mg 03/01/20 22:00 03/03/20 21:41 Melatonin PO 5 mg HS PRN Administration INSOMNIA Pantoprazole Sodium 40 mg 03/04/20 10:00 03/20/20 09:11 Protonix - PO 40 mg DAILY [facility]AH Administration Zinc Sulfate 220 mg 03/01/20 22:00 03/20/20 09:11 Orazinc - PO 220 mg BID SARAH Administration ASSESSMENT/PLAN: 34M with HTN (no home meds) and newly diagnosed DM on this admission. He was admitted 01/24 after he presented with 3-4 days of increasing dyspnea and diarrhea after testing positive for COVID. #COVID 19 Pneumonia - Completed abx, remdesivir course, tocilizumab infusion, convalescent plasma transfusion - Was on Venti 50 yesterday, desatted with exertion, placed back on NRB - Pulm: NRB, Astral device pending delivery - CXR (03/19)_ slight improvement of b/l infiltrates from previously - CTA (03/10): No PE, inc Rt Pulm artery pressure, enlarged mediastinal lymph node - Decadron 4 mg BID PO continuing per pulm - Eliquis 5mg BID - Vitamin C, Vitamin D, Zinc - COVID (02/27) NEG - Lab vacation for now until necessary as we are not following any labs at this time # Atypical Chest Pain - Resolved, likely 2/2 excessive coughing, Robitussin Q4H - ACS ruled out: TNI neg x2; EKG showed NSR, no acute ischemic changes - Echo when stable/able to lie flat as per cardio - Plan for ECHO and MIBI when feasible with outpatient Cardio F/U with Dr. Rossi #Newly diagnosed DM - HbA1c 10.5, POC glucose in late 200s-300s - Levemir 30+25, Novolog 10TIDAC, Nov ISS - WILL REDUCE INSULIN WHEN DECADRON IS STOPPED # Headache - Fioricet Q6H - pt hasn't had any headaches #Hx of HTN - Started on Losartan here, holding for now due to low BP #Newly diagnosed HLD - Chol 204, LDL 122, HDL 62 - Lipitor 40 HS #FEN - DM diet #Prophylaxis - On Eliquis 5 mg BID - Started Protonix 40mg #Dispo - Pending Astral device (noninvasive portable device) and LTAC placement, will keep checking with SW daily. Visit type - Emergency Visit Emergency Visit: Yes ED Registration Date: 01/25/20 Care time: The patient presented to the Emergency Department on the above date and was hospitalized for further evaluation of their emergent condition. - New Patient This patient is new to me today: No - Critical Care Critical Care patient: No - Discharge Referral Referred to [facility] Med P.C.: No ATTENDING PHYSICIAN STATEMENT I saw and evaluated the patient. I reviewed the resident's note and discussed the case with the resident. I agree with the resident's findings and plan as documented. SUBJECTIVE: OBJECTIVE: ASSESSMENT AND PLAN:
--- NOTE | 2020-03-20 11:57 | PN ---
Progress Note, Physician Chief Complaint: Pt A&Ox3; sitting up at bedside; remains dyspneic on mild exertion. History of Present Illness: 34yo black man with morbid obesity, DM, hyperlipidemia, ?sleep apnea, recent COV ID positive test, presents to the ED with shortness of breath and extreme fatigue. Recently on azithromycin course without relief. Saturating at 98% on room air, placed on 2L nasal cannula upon arrival with symptomatic relief. Patient has been progressively short of breath since diagnosis. Called because pt c/o strong, sharp left breast pain that began today at rest, lasted about an hour. Pt says he had had a similar pain, though less severe and of shorter duration while in the ICU. Pt denies personal or family hx of heart disease; his father has DM. Pt never smoked; does not drink to excess. 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 - Current Medication List Current Medications: Active Medications Acetaminophen (Tylenol -) 650 mg PO Q6H PRN PRN Reason: FEVER Albuterol Sulfate (Ventolin Hfa Inhaler -) 1 puff IH Q4H PRN PRN Reason: SHORT OF BREATH/WHEEZING Apixaban (Eliquis -) 5 mg PO BID [facility] Last Admin: 03/20/20 09:11 Dose: 5 mg Documented by: Ascorbic Acid (Vitamin C -) 500 mg PO BID [facility] Last Admin: 03/20/20 09:11 Dose: 500 mg Documented by: Atorvastatin Calcium (Lipitor -) 40 mg PO HS [facility] Last Admin: 03/19/20 22:08 Dose: 40 mg Documented by: Benzocaine/Menthol (Cepacol Lozenge -) 1 each MM Q4H PRN PRN Reason: SORE THROAT Last Admin: 03/08/20 09:57 Dose: 1 each Documented by: Budesonide/Formoterol Fumarate (Symbicort 80/4.5mcg -) 2 puff IH BID [facility] Last Admin: 03/20/20 09:19 Dose: 2 puff Documented by: Cholecalciferol (Vitamin D3 -) 2,000 unit PO DAILY [facility] Last Admin: 03/20/20 09:12 Dose: 2,000 unit Documented by: Clotrimazole (Lotrimin 1% Cream -) 1 applic TP BID [facility] Last Admin: 03/20/20 09:18 Dose: Not Given Documented by: Dexamethasone (Decadron -) 4 mg PO BID [facility] Last Admin: 03/20/20 09:10 Dose: 4 mg Documented by: Insulin Aspart (Novolog Vial Sliding Scale -) 1 vial SQ ACHS [facility]; Protocol Last Admin: 03/20/20 11:27 Dose: 3 units Documented by: Insulin Aspart (Novolog) 10 units SQ TIDAC [facility] Last Admin: 03/20/20 11:26 Dose: 10 units Documented by: Insulin Detemir (Levemir Vial) 30 units SQ ACBK [facility] Last Admin: 03/20/20 06:20 Dose: 30 units Documented by: Insulin Detemir (Levemir Vial) 25 units SQ HS [facility] Last Admin: 03/19/20 22:09 Dose: 25 units Documented by: Melatonin (Melatonin) 5 mg PO HS PRN PRN Reason: INSOMNIA Last Admin: 03/03/20 21:41 Dose: 5 mg Documented by: Pantoprazole Sodium (Protonix -) 40 mg PO DAILY [facility] Last Admin: 03/20/20 09:11 Dose: 40 mg Documented by: Zinc Sulfate (Orazinc -) 220 mg PO BID [facility] Last Admin: 03/20/20 09:11 Dose: 220 mg Documented by: - Objective Vital Signs: Vital Signs Temperature 98.3 F 03/20/20 09:10 Pulse Rate 68 03/20/20 09:10 Respiratory Rate 20 03/20/20 09:10 Blood Pressure 90/39 L 03/20/20 09:10 O2 Sat by Pulse Oximetry (%) 100 03/20/20 10:00 Constitutional: Yes: Calm, Obese Eyes: Yes: WNL HENT: Yes: WNL Neck: Yes: WNL Cardiovascular: Yes: Regular Rate and Rhythm, S1, S2 Respiratory: Yes: Diminished, On Venti-Mask, Tachypnea Gastrointestinal: Yes: Soft, Abdomen, Obese ...Rectal Exam: Yes: Deferred Genitourinary: No: Anuria Breast(s): Yes: WNL Musculoskeletal: Yes: Muscle Weakness Extremities: Yes: Cool Edema: No Peripheral Pulses WNL: Yes Integumentary: Yes: WNL Neurological: Yes: WNL Psychiatric: Yes: WNL Labs: CBC, BMP 03/20/20 07:29 03/20/20 07:29 INR, PTT INR 1.00 (0.83-1.09) 01/25/20 16:29 Fibrinogen 468.0 mg/dL (238-498) 02/25/20 13:05 - ....Imaging Chest X-ray: Image Reviewed EKG: Image Reviewed Assessment/Plan COVID pneumonia ARDS; now with chronic respiratory failure Hyperlipidemia DM Morbid Obesity Atypical chest pain anemia Plan: Pt completed tocilizumab, remdesivir, antibiotics, and plasma therapies. Continues with anticoagulation (DOAC) Continue furosemide F/u BUN/Cr, electrolytes, daily weight, Is and Os. 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
--- NOTE | 2020-03-20 16:05 | PN ---
Progress Note (short form) - Note Progress Note: Remains on NRBM. Subjectively feels a little better. Voice and cough are improving. Has not repeat use of Astral device. Intake & Output 03/17/20 03/18/20 03/19/20 03/20/20 23:59 23:59 23:59 23:59 Intake Total 1380 1480 400 Output Total 3100 1450 1950 Balance -1720 30 400 -1950 Weight 315 lb 4 oz 317 lb 4 oz 313 lb 8 oz 319 lb Last Vital Signs Temp Pulse Resp BP Pulse Ox 97.9 F 80 20 128/68 100 03/20/20 14:00 03/20/20 14:00 03/20/20 14:00 03/20/20 14:00 03/20/20 10:00 Active Medications Acetaminophen (Tylenol -) 650 mg PO Q6H PRN PRN Reason: FEVER Albuterol Sulfate (Ventolin Hfa Inhaler -) 1 puff IH Q4H PRN PRN Reason: SHORT OF BREATH/WHEEZING Apixaban (Eliquis -) 5 mg PO BID [facility] Last Admin: 03/20/20 09:11 Dose: 5 mg Documented by: Ascorbic Acid (Vitamin C -) 500 mg PO BID [facility] Last Admin: 03/20/20 09:11 Dose: 500 mg Documented by: Atorvastatin Calcium (Lipitor -) 40 mg PO HS [facility] Last Admin: 03/19/20 22:08 Dose: 40 mg Documented by: Benzocaine/Menthol (Cepacol Lozenge -) 1 each MM Q4H PRN PRN Reason: SORE THROAT Last Admin: 03/08/20 09:57 Dose: 1 each Documented by: Budesonide/Formoterol Fumarate (Symbicort 80/4.5mcg -) 2 puff IH BID [facility] Last Admin: 03/20/20 09:19 Dose: 2 puff Documented by: Cholecalciferol (Vitamin D3 -) 2,000 unit PO DAILY [facility] Last Admin: 03/20/20 09:12 Dose: 2,000 unit Documented by: Clotrimazole (Lotrimin 1% Cream -) 1 applic TP BID [facility] Last Admin: 03/20/20 09:18 Dose: Not Given Documented by: Dexamethasone (Decadron -) 4 mg PO BID [facility] Last Admin: 03/20/20 09:10 Dose: 4 mg Documented by: Insulin Aspart (Novolog Vial Sliding Scale -) 1 vial SQ ACHS [facility]; Protocol Last Admin: 03/20/20 11:27 Dose: 3 units Documented by: Insulin Aspart (Novolog) 10 units SQ TIDAC [facility] Last Admin: 03/20/20 11:26 Dose: 10 units Documented by: Insulin Detemir (Levemir Vial) 30 units SQ ACBK [facility] Last Admin: 03/20/20 06:20 Dose: 30 units Documented by: Insulin Detemir (Levemir Vial) 25 units SQ HS [facility] Last Admin: 03/19/20 22:09 Dose: 25 units Documented by: Melatonin (Melatonin) 5 mg PO HS PRN PRN Reason: INSOMNIA Last Admin: 03/03/20 21:41 Dose: 5 mg Documented by: Pantoprazole Sodium (Protonix -) 40 mg PO DAILY [facility] Last Admin: 03/20/20 09:11 Dose: 40 mg Documented by: Zinc Sulfate (Orazinc -) 220 mg PO BID [facility] Last Admin: 03/20/20 09:11 Dose: 220 mg Documented by: Gen: More comfortable Heart: RRR Lung: Diminished throughout Abd: soft, nontender Ext: no edema Laboratory Results - last 24 hr 03/19/20 03/19/20 03/20/20 16:35 22:06 06:19 WBC RBC Hgb Hct MCV MCH MCHC RDW Plt Count MPV Absolute Neuts (auto) Neutrophils % Lymphocytes % Monocytes % Eosinophils % Basophils % Nucleated RBC % Sodium Potassium Chloride Carbon Dioxide Anion Gap BUN Creatinine Est GFR (CKD-EPI)AfAm Est GFR (CKD-EPI)NonAf POC Glucometer 320 283 338 Random Glucose Calcium 03/20/20 03/20/20 03/20/20 07:29 07:29 11:15 WBC 11.6 H RBC 4.15 Hgb 10.2 L Hct 32.9 L MCV 79.2 L MCH 24.5 L MCHC 30.9 L RDW 18.5 H Plt Count 291 MPV 9.3 Absolute Neuts (auto) 7.9 Neutrophils % 67.9 Lymphocytes % 24.3 Monocytes % 7.4 Eosinophils % 0.0 D Basophils % 0.4 D Nucleated RBC % 0 Sodium 138 Potassium 4.4 Chloride 101 Carbon Dioxide 30 Anion Gap 7 L BUN 23.9 H Creatinine 1.0 Est GFR (CKD-EPI)AfAm 112.51 Est GFR (CKD-EPI)NonAf 97.08 POC Glucometer 191 Random Glucose 348 H Calcium 8.9 A/P Acute Hypoxic Respiratory Failure COVID Pneumonia ARDS HTN DM Anemia - PO Lasix - s/p remdesivir course - s/p tocilizumab infusion - s/p convalescent plasma transfusion - cough suppressants - continue anticoagulation - completed empiric antibiotics - O2 to keep SpO2 >90% - NIPPV at night & PRN - Astral trials as patient is willing - Patient would benefit from an LTAC Due to Chronic Respiratory Failure and advancement of Obstructive and Restrictive lung Disease with lack of gas exchange the patient requires ventilation via a non-invasive ventilator as BiPAP is no longer effective in treatment to effectively decrease work of breathing and to improve pulmonary status and prevent interruption or failure of respiratory support. Dr Cavazos
--- NOTE | 2020-03-20 16:55 | PN ---
Teaching Attending Note Name of Resident: Mynor Curry ATTENDING PHYSICIAN STATEMENT I saw and evaluated the patient. I reviewed the resident's note and discussed the case with the resident. I agree with the resident's findings and plan as documented. SUBJECTIVE: Seen and examined at bedside. Pt stable, no new complaints OBJECTIVE: Last Vital Signs Temp Pulse Resp BP Pulse Ox 97.9 F 80 20 128/68 100 03/20/20 14:00 03/20/20 14:00 03/20/20 14:00 03/20/20 14:00 03/20/20 10:00 PE: Per resdient note Labs/Imaging: reviewed ASSESSMENT/PLAN: 34M with HTN (no home meds) and newly diagnosed DM on this admission. He was admitted 01/24 after he presented with 3-4 days of increasing dyspnea and diarrhea after testing positive for COVID. Has had extended stay and remains dependent on nonrebreather to maintain oxygenation #COVID 19 Pneumonia Has had extended stay and remains dependent on nonrebreather to maintain oxygenation. CT scan concerning for developing fibrosis. Discussed case with pulmonary. Will place consult to lung transplant team at [facility] who apparently specialize in obese patients - Completed abx, remdesivir course, tocilizumab infusion, convalescent plasma transfusion - dDimer downtrending, on Eliquis 5mg BID - Vitamin C, Vitamin D, Zinc - COVID (02/27) NEG -f/u pulm recs #Iron deficiency anemia 2/2 repeated blood draws over prolonged stay -completed IV iron 100mg x3 days #atypical CP Cards on board: appreciate recs -s/p Echo: poor quality, LV function normal -Stress MIBI when stable #DM With hyperglycemia 2/2 steroids - HbA1c 10.5, POC glucose in late 200s-300s - Levemir 30 + 25 with Novolog 10TIDAC and ISS -when steroids are stopped pt should be reverted to levemir 25-20, 6U TIDAC # Headache - Fioricet Q6H PRN # HLD - Lipitor 40 #Prophylaxis - On Eliquis 5 mg BID - Cont Protonix 40mg #Dispo - Continue to attempt to wean off oxygen as tolerated
[2020-03-20] MEDS: ATORVASTATIN CA 40 MG TABLET (FP) PO SCH (21:16)
[2020-03-20] MEDS: BUDESONIDE/FORMETEROL FUMARATE 160/4.5 mcg INHALER IH SCH (21:17)
[2020-03-21] MEDS: Insulin (LOG) Aspart 100 UNITS/ML VIAL SQ SCH ×2 (06:53→11:31)
[2020-03-21] MEDS: INSULIN SLIDING SCALE (NOVOLOG) 1 VIAL SQ SCH ×2 (06:54→11:30)
[2020-03-21] MEDS: INSULIN (LEVEMIR) 100 UNITS/ML UNITS SQ SCH (06:56)
[2020-03-21 07:02] VITALS: TEMP 98.2
[2020-03-21] MEDS ORDERED: INSULIN (NOVOLOG) ASPART 100 UNITS/ML 10ML VIAL ONE ×3 (07:31→17:11)
[2020-03-21] MEDS ORDERED: INSULIN (LEVEMIR) 100 UNITS/ML UNITS SQ ONE (07:31)
--- NOTE | 2020-03-21 10:38 | PN ---
Progress Note (short form) - Note Progress Note: On NIPPV support as the AC is not working. Subjectively feels the same. Voice and cough are improving. Has not repeated use of Astral device. Intake & Output 03/18/20 03/19/20 03/20/20 03/21/20 23:59 23:59 23:59 23:59 Intake Total 1480 400 0 Output Total 1450 2250 Balance 30 400 -2250 0 Weight 317 lb 4 oz 313 lb 8 oz 319 lb 312 lb 1.6 oz Last Vital Signs Temp Pulse Resp BP Pulse Ox 98.2 F 69 22 H 131/75 100 03/21/20 07:01 03/21/20 07:01 03/21/20 07:01 03/21/20 07:01 03/21/20 08:05 Active Medications Acetaminophen (Tylenol -) 650 mg PO Q6H PRN PRN Reason: FEVER Albuterol Sulfate (Ventolin Hfa Inhaler -) 1 puff IH Q4H PRN PRN Reason: SHORT OF BREATH/WHEEZING Apixaban (Eliquis -) 5 mg PO BID [facility] Last Admin: 03/20/20 21:16 Dose: 5 mg Documented by: Ascorbic Acid (Vitamin C -) 500 mg PO BID [facility] Last Admin: 03/20/20 21:16 Dose: 500 mg Documented by: Atorvastatin Calcium (Lipitor -) 40 mg PO HS [facility] Last Admin: 03/20/20 21:16 Dose: 40 mg Documented by: Benzocaine/Menthol (Cepacol Lozenge -) 1 each MM Q4H PRN PRN Reason: SORE THROAT Last Admin: 03/08/20 09:57 Dose: 1 each Documented by: Budesonide/Formoterol Fumarate (Symbicort 160/4.5mcg -) 2 puff IH BID [facility] Last Admin: 03/20/20 21:17 Dose: 2 puff Documented by: Cholecalciferol (Vitamin D3 -) 2,000 unit PO DAILY [facility] Last Admin: 03/20/20 09:12 Dose: 2,000 unit Documented by: Clotrimazole (Lotrimin 1% Cream -) 1 applic TP BID [facility] Last Admin: 03/20/20 21:16 Dose: Not Given Documented by: Dexamethasone (Decadron -) 4 mg PO BID [facility] Last Admin: 03/20/20 21:16 Dose: 4 mg Documented by: Insulin Aspart (Novolog Vial Sliding Scale -) 1 vial SQ ACHS [facility]; Protocol Last Admin: 03/21/20 06:54 Dose: 12 units Documented by: Insulin Aspart (Novolog) 10 units SQ TIDAC [facility] Last Admin: 03/21/20 06:53 Dose: 10 units Documented by: Insulin Detemir (Levemir Vial) 30 units SQ ACBK [facility] Last Admin: 03/21/20 06:56 Dose: 30 units Documented by: Insulin Detemir (Levemir Vial) 25 units SQ HS [facility] Last Admin: 03/20/20 21:14 Dose: 25 units Documented by: Melatonin (Melatonin) 5 mg PO HS PRN PRN Reason: INSOMNIA Last Admin: 03/03/20 21:41 Dose: 5 mg Documented by: Pantoprazole Sodium (Protonix -) 40 mg PO DAILY [facility] Last Admin: 03/20/20 09:11 Dose: 40 mg Documented by: Zinc Sulfate (Orazinc -) 220 mg PO BID [facility] Last Admin: 03/20/20 21:16 Dose: 220 mg Documented by: Gen: More comfortable Heart: RRR Lung: Diminished throughout Abd: soft, nontender Ext: less edema Laboratory Results - last 24 hr 03/20/20 03/20/20 03/20/20 11:15 11:20 16:38 POC Glucometer 191 197 COVID-19 ([facility]) Not detected 03/20/20 03/21/20 21:13 06:52 POC Glucometer 336 345 COVID-19 ([facility]) A/P Acute Hypoxic Respiratory Failure COVID Pneumonia ARDS HTN DM Anemia - s/p remdesivir course - s/p tocilizumab infusion - s/p convalescent plasma transfusion - cough suppressants - continue anticoagulation - completed empiric antibiotics - O2 to keep SpO2 >90% - NIPPV at night & PRN - Astral trials as patient is willing - Patient would benefit from an LTAC : DC planning in progress Due to Chronic Respiratory Failure and advancement of Obstructive and Restrictive lung Disease with lack of gas exchange the patient requires ventilation via a non-invasive ventilator as BiPAP is no longer effective in treatment to effectively decrease work of breathing and to improve pulmonary status and prevent interruption or failure of respiratory support. Dr Cavazos
[2020-03-21] MEDS: DEXAMETHASONE 4 MG TABLET (FP) PO SCH (10:51)
[2020-03-21] MEDS: CHOLECALCIFEROL (VIT D3) 1,000 UNIT (25 MCG) TABLET PO SCH (10:51)
[2020-03-21] MEDS: ASCORBIC ACID 500 MG TABLET (FP) PO SCH (10:51)
[2020-03-21] MEDS: ZINC SULFATE 220 MG CAPSULE (FP) PO SCH (10:51)
[2020-03-21] MEDS: PANTOPRAZOLE 40 MG TABLET PO SCH (10:51)
[2020-03-21] MEDS: CLOTRIMAZOLE 1% CREAM 15 GM TUBE TP SCH (10:51)
[2020-03-21] MEDS: APIXABAN 5 MG TABLET PO SCH (10:52)
[2020-03-21] MEDS: BUDESONIDE/FORMETEROL FUMARATE 160/4.5 mcg INHALER IH SCH (10:56)
--- NOTE | 2020-03-21 11:07 | PN ---
Progress Note, Physician History of Present Illness: 34yo male with recent COVID positive test presents to the ED with shortness of breath and extreme fatigue. Recently on azithromycin course without relief. Saturating at 98% on room air, placed on 2L nasal cannula upon arrival with symptomatic relief. Patient has been progressively short of breath since diagnosis. - Current Medication List Current Medications: Active Medications Acetaminophen (Tylenol -) 650 mg PO Q6H PRN PRN Reason: FEVER Albuterol Sulfate (Ventolin Hfa Inhaler -) 1 puff IH Q4H PRN PRN Reason: SHORT OF BREATH/WHEEZING Apixaban (Eliquis -) 5 mg PO BID [facility] Last Admin: 03/21/20 10:52 Dose: 5 mg Documented by: Ascorbic Acid (Vitamin C -) 500 mg PO BID [facility] Last Admin: 03/21/20 10:51 Dose: 500 mg Documented by: Atorvastatin Calcium (Lipitor -) 40 mg PO HS [facility] Last Admin: 03/20/20 21:16 Dose: 40 mg Documented by: Benzocaine/Menthol (Cepacol Lozenge -) 1 each MM Q4H PRN PRN Reason: SORE THROAT Last Admin: 03/08/20 09:57 Dose: 1 each Documented by: Budesonide/Formoterol Fumarate (Symbicort 160/4.5mcg -) 2 puff IH BID [facility] Last Admin: 03/21/20 10:56 Dose: 2 puff Documented by: Cholecalciferol (Vitamin D3 -) 2,000 unit PO DAILY [facility] Last Admin: 03/21/20 10:51 Dose: 2,000 unit Documented by: Clotrimazole (Lotrimin 1% Cream -) 1 applic TP BID [facility] Last Admin: 03/21/20 10:51 Dose: Not Given Documented by: Dexamethasone (Decadron -) 4 mg PO BID [facility] Last Admin: 03/21/20 10:51 Dose: 4 mg Documented by: Insulin Aspart (Novolog Vial Sliding Scale -) 1 vial SQ ACHS [facility]; Protocol Last Admin: 03/21/20 06:54 Dose: 12 units Documented by: Insulin Aspart (Novolog) 10 units SQ TIDAC [facility] Last Admin: 03/21/20 06:53 Dose: 10 units Documented by: Insulin Detemir (Levemir Vial) 30 units SQ ACBK [facility] Last Admin: 03/21/20 06:56 Dose: 30 units Documented by: Insulin Detemir (Levemir Vial) 25 units SQ HS [facility] Last Admin: 03/20/20 21:14 Dose: 25 units Documented by: Melatonin (Melatonin) 5 mg PO HS PRN PRN Reason: INSOMNIA Last Admin: 03/03/20 21:41 Dose: 5 mg Documented by: Pantoprazole Sodium (Protonix -) 40 mg PO DAILY [facility] Last Admin: 03/21/20 10:51 Dose: 40 mg Documented by: Zinc Sulfate (Orazinc -) 220 mg PO BID [facility] Last Admin: 03/21/20 10:51 Dose: 220 mg Documented by: - Objective Vital Signs: Vital Signs Temperature 98.2 F 03/21/20 07:01 Pulse Rate 69 03/21/20 07:01 Respiratory Rate 22 H 03/21/20 07:01 Blood Pressure 131/75 03/21/20 07:01 O2 Sat by Pulse Oximetry (%) 100 03/21/20 08:05 Eyes: Yes: WNL, Conjunctiva Clear, EOM Intact HENT: Yes: WNL, Atraumatic, Normocephalic Neck: Yes: WNL, Supple, Trachea Midline Cardiovascular: Yes: WNL, Regular Rate and Rhythm Respiratory: Yes: WNL, Regular, CTA Bilaterally Gastrointestinal: Yes: WNL, Normal Bowel Sounds Genitourinary: Yes: WNL Musculoskeletal: Yes: WNL Extremities: Yes: WNL Edema: No Integumentary: Yes: WNL Neurological: Yes: WNL, Alert, Oriented ...Motor Strength: WNL Psychiatric: Yes: WNL Labs: CBC, BMP 03/20/20 07:29 03/20/20 07:29 INR, PTT INR 1.00 (0.83-1.09) 01/25/20 16:29 Fibrinogen 468.0 mg/dL (238-498) 02/25/20 13:05 Problem List - Problems (1) Acute hypoxemic respiratory failure Code(s): J96.01 - ACUTE RESPIRATORY FAILURE WITH HYPOXIA (2) COVID-19 Code(s): U07.1 - COVID POSITIVE (3) HTN (hypertension) Code(s): I10 - ESSENTIAL (PRIMARY) HYPERTENSION (4) REYNALDO (obstructive sleep apnea) Code(s): G47.33 - OBSTRUCTIVE SLEEP APNEA (ADULT) (PEDIATRIC) (5) Obesity Code(s): E66.9 - OBESITY, UNSPECIFIED (6) Bronchitis Code(s): J40 - BRONCHITIS, NOT SPECIFIED ACUTE OR CHRONIC (7) Cough Code(s): R05 - COUGH Assessment/Plan COVID pneumonia ARDS Hyperlipidemia DM Morbid Obesity Atypical chest pain Plan: COVID not detected (02/28/20) Continue bronchodilators, O2, steroids, and antibiotics per outside dealer sales representative (pt says O2 sat drops when he walks even a very short distance; plans on rehabilitation center transfer). TNI < 0.02 x 2 EKG:NSR; no acute changes LDL cholesterol 122 mg/dL; keep < 70 mg;dL with statin, diet change. On apixaban for anticoagulation. BUN/Cr, electrolytes, daily weight, Is and Os. ECHO: suboptimal study; normal LVEF; could not comment on RV or RA; suggest repeat test when pt better able to tolerate it (e.g. be positioned for better visual windows). Now on losartan (HTN; diastolic dysfunction; DM). Plan on stress MIBI, due to multiple CAD risks, when stable. Given pt's frail state, this may need to be deferred until a later date.
[2020-03-21 14:06] VITALS: BP 108/63; PULSE 84
[2020-03-21 14:48] VITALS: BMI 43.4
--- NOTE | 2020-03-21 15:23 | PN ---
Teaching Attending Note Name of Resident: Vince Gardner ATTENDING PHYSICIAN STATEMENT I saw and evaluated the patient. I reviewed the resident's note and discussed the case with the resident. I agree with the resident's findings and plan as documented. SUBJECTIVE: Seen and examined at bedside. Pt stable, no new complaints OBJECTIVE: Last Vital Signs Temp Pulse Resp BP Pulse Ox 98.2 F 84 22 H 108/63 99 03/21/20 14:02 03/21/20 14:02 03/21/20 14:02 03/21/20 14:02 03/21/20 10:00 PE: Per resdient note Labs/Imaging: reviewed ASSESSMENT/PLAN: 34M with HTN (no home meds) and newly diagnosed DM on this admission. He was admitted 01/24 after he presented with 3-4 days of increasing dyspnea and diarrhea after testing positive for COVID. Has had extended stay and remains dependent on nonrebreather to maintain oxygenation Pt has been accepted to LTACH facility for further management. Patient will need to complete a steroid taper and sugars will need to be closely monitored during this period as insulin needs will likely change. While off steroids, patient's blood sugar was controlled on Levemir 25 units in the morning, Levemir 20 units at night, and 6 units of lispro 3 times daily AC
--- NOTE | 2020-03-21 16:33 | DS ---
Physical Exam: SUBJECTIVE: Patient seen and examined at the bedside, standing, breathing/coughing unchanged compared to yesterday OBJECTIVE: Vital Signs Period Temp Pulse Resp BP Sys/Miner Pulse Ox Last 24 Hr 98.2 F-98.5 F 69-89 20-22 108-137/63-75 99-100 PHYSICAL EXAM GENERAL: AOx3 HEAD: Normal with no signs of trauma. EYES: PERRL, extraocular movements intact, sclera anicteric, conjunctiva clear. No ptosis. NECK: Trachea midline, full range of motion, supple. LUNGS: On NRB. Poor air movement throughout, no wheezing HEART: RRR. Normal S1, S2. No murmurs noted. ABDOMEN: Obese. Soft, nontender, obese, no guarding, no rebound, no hepatosplenomegaly, no masses. EXTREMITIES: 2+ pulses, warm, well-perfused, no edema. NEUROLOGICAL: Cranial nerves II through XII grossly intact. Normal speech, gait not observed. LABS Laboratory Results - last 24 hr 03/20/20 03/20/20 03/20/20 11:20 16:38 21:13 POC Glucometer 197 336 COVID-19 ([facility]) Not detected 03/21/20 03/21/20 06:52 11:19 POC Glucometer 345 245 COVID-19 ([facility]) HOSPITAL COURSE: Date of Admission:01/25/20 34M with HTN (no home meds) and newly diagnosed DM (HbA1c 10.5%) on this admission. He was admitted 01/24 after he presented with 3-4 days of increasing dyspnea and diarrhea after testing positive for COVID. He was admitted to the ICU for acute hypoxic respiratory failure 2/2 COVID infection, and required o xygen supplementation. He was titrated up to NRB and BiPap at night. Numerous attempts were made to down-titrate him to Venti 50, as well as by removing the NRB flap, but his SpO2 consistently and rapidly decreased to the 80s. An astral device as well as Oxtgen pendant were ordered, however the patient continued to de-saturate with these interventions. Inflammatory markers were elevated, and he was started on Eliquis 5mg BID on 01/27 (to be continued for 1 month after DC). Tociluzumab, convalescent plasma, Remdesevir, HCQ courses were administered, with no improvement in his condition. CT imaging during the later stages of his stay demonstrated evidence of lung scarring and fibrosis. The possibility of a lung transplant was explored, but patient was reluctant since he would not be an ideal candidate due to his elevated BMI. Steroid courses were also attempted, He was started on Decadron /, which resulted in improvement of his upper airway symptoms as well as his cough. He was started on Levemir and Novolog TID for control of his glucose. Levemir was increased to 30 in AM + 25 HS with Novolog 12 TID after initiation of steroids. This will need to be lowered once Decadron is DCed (1 week taperafter transfer to LTAC). He was also started on Lipitor 40mg daily. Pt was eventually accepted to LTAC and transferred today for further medication technician care. Date of Discharge: 03/21/20 Minutes to complete discharge: 39 Discharge Summary Problems reviewed: Yes Reason For Visit: COVID 19 Current Active Problems Acute hypoxemic respiratory failure (Acute) COVID-19 (Acute) HTN (hypertension) (Acute) REYNALDO (obstructive sleep apnea) (Acute) Obesity (Acute) Condition: Fair - Instructions Diet, Activity, Other Instructions: You were admitted to the hospital for shortness of breath and diarrhea, and were found to be COVID positive. While you were here, you were treated with Remdesevir, Tocilizumab, plasma transfusions, steroids, and antibiotics. You were provided with respiratory support through a non re breather mask and a BiPAP at night. You are now being transferred to a long-term acute care facility (LTAC). An LTAC is a specialty-care hospital designed for patients with serious medical problems that require intense, special treatment for an extended period of timeusually 20 to 30 days. air brake man acute care facilities offer more individualized and resource-intensive care than a senior living facility, usp or acute rehabilitation facility. Patients are typically transferred to a [facility] from the intensive care unit of a traditional hospital because they no longer require intensive diagnostic procedures offered by a traditional facility. While a traditional hospital provides several general medical specialties, such as emergency care, maternity care, etc., a medication technician acute care hospital has the focused resources to apply very high standards to a relatively small list of ailments. Medications: - Please take Eliquis 5mg by mouth twice per day for the next 1 month (30 days) - Please take Decadron 3mg by mouth twice a day (once in the morning and once in the evening) on 03/22 and 03/23 - Please take Decadron 2mg by mouth twice a day (once in the morning and once in the evening) on 03/24 and 03/25 - Please take Decadron 1mg by mouth twice a day (once in the morning and once in the evening) on 03/26, 03/27, and 03/28 - Insulin: PLEASE NOTE YOUR INSULIN REQUIREMENTS WILL DECREASE ONCE YOU HAVE BEEN WEANED OFF OF DECADRON - Please take Levemir through subcutaneous injection 30 units in the morning and 30 units at night every day - Once you are no longer on Decadron (after 03/28), please take Levemir 25 units in the morning and 20 units at night - Please take Novolog through subcutaneous injection 12 units three times a day (36 units total) before each meal - Once you are no longer on Decadron (after 03/28), please take Novolog 6 units three times a day before each meal - Sliding scale: Please check your Blood glucose before meals and before bed t mandeep every day. Depending on the values, please take the following amounts of Novolog (in addition to your before meal Novolog dose of 12 units) through subcutaneous injection: - For Blood Glucose 101-150, no Novolog required - For Blood Glucose 151-200, 3 units of Novolog - For Blood Glucose 201-250, 6 units of Novolog - For Blood Glucose 251-300, 9 units of Novolog - For Blood Glucose over 301, 12 units of Novolog - Please take Symbicort and Ventolin inhalers for shortness of breath as needed - Please take Protonix 40mg by mouth once a day - Please take Lipitor 40mg by mouth at night every day - please take Cepacol lozenges as required - Please take Orazinc 220mg by mouth once a day - Please take Vitamin C 500mg by mouth twice a day - Please take Vitamin D 2,000 units by mouth once a day Follow Up - Please follow up with your primary care physician within 2 week. If you do not have one, a referral for Dr. Lee has been provided - Please follow up with Dr. Cooper, (Cardiology) for a Stress MIBI to test your heart's function - Please follow up with Dr. Cahndler, [employer] - You will require a repeat CT scan in 3 months due to an enlarged Mediastinal lymph node found on CTA. Additional Instructions: -You are being discharged to an LTAC facility -Please refrain from smoking cigarettes as this can worsen your symptoms and result in future health issues. -Please return to the Emergency Department if you experience worsening pain, fevers, chills, shortness of breath, or chest pain, or if you experience any worsening, new or concerning symptoms. Referrals: Ronnie Lee MD [Staff Physician] - Manish Chandler MD [Staff Physician] - Chandu Cooper MD [Staff Physician] - Disposition: PHYSICAL REHABILATION FACILITY - Home Medications Comprehensive Discharge Medication List: Ambulatory Orders Albuterol Sulfate Inhaler - [Ventolin HFA Inhaler -] 1 puff IH Q4H PRN inhaler 03/21/20 Apixaban [Eliquis -] 5 mg PO BID 30 Days #60 tablet 03/21/20 Ascorbic Acid [Vitamin C -] 500 mg PO BID tablet 03/21/20 Atorvastatin Ca [Lipitor] 40 mg PO HS #30 tablet 03/21/20 Budesonide/Formeterol Fumarate [SYMBICORT 160/4.5mcg -] 2 puff IH BID inhaler 03/21/20 Budesonide/Formeterol Fumarate [SYMBICORT 80/4.5mcg -] 2 puff IH BID inhaler 03/21/20 Cholecalciferol (Vitamin D3) [Vitamin D3 -] 2,000 unit PO DAILY tab 03/21/20 Clotrimazole [Lotrimin -] 1 applic TP BID tube 03/21/20 Dexamethasone [Decadron -] 1 mg PO BID 3 Days #6 tablet 03/21/20 Dexamethasone [Decadron] 2 mg PO BID 2 Days #4 tablet 03/21/20 Dexamethasone [Decadron] 3 mg PO BID 2 Days #4 tablet 03/21/20 Insulin (LOG) Aspart [NovoLOG -] 12 units SQ TIDAC vial 03/21/20 Insulin (Levemir) [Levemir Vial] 30 units SQ ACBK units 03/21/20 Insulin (Levemir) [Levemir Vial] 30 units SQ HS units 03/21/20 Insulin Sliding Scale [Novolog Vial Sliding Scale -] 1 vial SQ ACHS units 03/21/20 Melatonin 5 mg PO HS PRN tab 03/21/20 Pantoprazole Sodium [Protonix -] 40 mg PO DAILY tablet.ec 03/21/20 Zinc Sulfate [Orazinc -] 220 mg PO BID capsule 03/21/20 This patient is new to me today: No Emergency Visit: No Critical Care patient: No - Discharge Referral Referred to [facility] Med [facility].C[facility] No ATTENDING PHYSICIAN STATEMENT I saw and evaluated the patient. I reviewed the resident's note and discussed the case with the resident. I agree with the resident's findings and plan as documented. SUBJECTIVE: OBJECTIVE: ASSESSMENT AND PLAN:
== END 2020-03-21 18:10 | DRG 137 ==
LOC: JER 16:29 → JERBED 17:11 → JICU 17:13 → J4S 02-14 18:10 → J8W 03-01 15:17
PROVIDERS: ADMIT Internal Medicine Pulmonary Disease; ATTEND Internal Medicine
PROC: 5A09557 Assistance with Respiratory Ventilation, Greater than 96 Consecutive Hours, Continuous Positive Airway Pressure (ICD-10-PCS; 2020-01-25)
PROC: 30233L1 Transfusion of Nonautologous Fresh Plasma into Peripheral Vein, Percutaneous Approach (ICD-10-PCS; principal; 2020-01-26)
DX: U07.1 COVID-19 (principal); J12.89 Other viral pneumonia; J96.01 Acute respiratory failure with hypoxia; J15.6 Pneumonia due to other Gram-negative bacteria; A85.8 Other specified viral encephalitis; Z68.41 Body mass index [BMI] 40.0-44.9, adult; E87.2 Acidosis; I10 Essential (primary) hypertension; E11.649 Type 2 diabetes mellitus with hypoglycemia without coma; E78.5 Hyperlipidemia, unspecified; J44.9 Chronic obstructive pulmonary disease, unspecified; J04.0 Acute laryngitis; J84.10 Pulmonary fibrosis, unspecified; G47.33 Obstructive sleep apnea (adult) (pediatric); E66.01 Morbid (severe) obesity due to excess calories; R07.89 Other chest pain; D50.9 Iron deficiency anemia, unspecified; R51 Headache; E11.65 Type 2 diabetes mellitus with hyperglycemia
CPT/HCPCS: 36415; 36430; 36600; 70450-TC; 71045-TC-FY; 71275-TC; 80048; 80053; 80061; 80076; 81003; 82248; 82308; 82550; 82553; 82728; 82803; 82962; 83036; 83540; 83550; 83605; 83615; 83721; 83735; 83880; 84100; 84443; 84484; 85025; 85027; 85379; 85384; 85610; 85651; 85730; 86140; 86480; 86850; 86900; 86901; 87040; 87070; 87205; 87899; 93005; 93010; 93306-TC; 94010; 94640; 94660; 94761; 97116-GP; 97162-GP; 99285-25; J0131; J1644; J1756; J3262; P9017; Q9967; U0003